=== PATIENT | female | born 1935 | race Caucasian/White ===

== ENCOUNTER 2019-04-06 10:31 | Outpatient (CLI) | payer MEDICARE, MEDICAID, SELFPAY ==
--- NOTE | 2019-04-06 | US_ITS ---
WS: [id number] DUPLEX CAROTID ULTRASOUND HISTORY: SYNCOPE COMPARISON: 06/05/2018 Peak systolic measurements are as follows (cm/sec): Right CCA: 61 Left CCA: 99 Right PICA: 159 Left PICA: 28 Right DOMINIQUE: 115 Left DOMINIQUE: 193 Right DICA: 146 Left DICA: 142 Right ECA: 280 Left ECA: 280 Vertebral arteries are antegrade. Right ICA/CCA: 2.6 Left ICA/CCA: 2.0 Mild scattered atherosclerosis throughout the carotid arteries. Most significant at the bifurcations. Turbulence and increased filling of the spectral window of the ICA waveform. Mild progression of dis ease since the prior study. US/ROR carotid duplex BI IMPRESSION: 1. Mild progression of ICA stenosis since 06/05/2018. 2. Bilateral ICA stenosis 50%.
== END 2019-04-06 10:32 | disposition home or self-care (01) ==
LOC: RADOUTREAD 11:31
PROVIDERS: Family Provider Family Medicine; Visit Provider Family Medicine
DX: Z76.89 Persons encountering health services in other specified circumstances (principal)

== ENCOUNTER 2019-04-20 12:55 | Outpatient (CLI) | payer MEDICARE, MEDICAID, SELFPAY ==
--- NOTE | 2019-04-20 13:03 | USCV_ITS ---
Galina Saba Age: 84 Gender: F : 1935 Exam Date: 04/20/2019 13:06 Ordering Phys: Magdiel Amador MD Technologist: Doe Donovan [place] [facility] [place]: SYNCOPE BP: 120 / 65 HR: 78 Rhythm: Sinus Technical Quality: Fair MEASUREMENTS (Male / Female) Normal Values 2D ECHO LV Diastolic Diameter PLAX 4.8 cm 4.2 - 5.9 / 3.9 - 5.3 cm LV Systolic Diameter PLAX 2.6 cm IVS Diastolic Thickness 1.2 cm 0.6 - 1.0 / 0.6 - 0.9 cm IVS Systolic Thickness 1.3 cm LVPW Diastolic Thickness 1.1 cm 0.6 - 1.0 / 0.6 - 0.9 cm LVPW Systolic Thickness 1.2 cm LVOT Diameter 2.0 cm LV Ejection Fraction 2D Teich 76.0 % LV Ejection Fraction MOD 2C 73.1 % LV Ejection Fraction 2C AL 72.7 % LA Diameter 4.2 cm LA Width 4.2 cm LA Height 5.3 cm RA Width 2.8 cm RA Height 3.5 cm Aorta at Sinotubular Diameter 2.8 cm DOPPLER AV Peak Velocity 178.0 cm/s LVOT Peak Velocity 134.0 cm/s AV Area Cont Eq vti 2.5 cm squared AV Area Cont Eq pk 2.3 cm squared MV Area PHT 5.0 cm squared Mitral E to A Ratio 0.8 MV E' Velocity 5.0 cm/s Mitral E to MV E' Ratio 19.2 Mitral E to LV E' Lateral Ratio 25.9 Mitral E to LV E' Septal Ratio 15.3 FINDINGS Left Ventricle Normal left ventricular cavity size. Mild left ventricular hypertrophy. Normal left ventricular systolic function. No regional wall motion abnormalities. Grade I/IV diastolic dysfunction (abnormal relaxation filling pattern), normal to mildly elevated filling pressures. Left ventricular ejection fraction is estimated at 65%. Right Ventricle Normal right ventricular size and systolic function. Right Atrium The right atrium is normal in size. Left Atrium Moderately increased left atrial size. Mitral Valve Structurally normal mitral valve. Mild mitral annular calcification. Mild mitral valve regurgitation. Aortic Valve Structurally normal trileaflet aortic valve. Mild aortic valve calcification. Aortic valve sclerosis without stenosis or regurgitation. Tricuspid Valve Structurally normal tricuspid valve. Trace tricuspid valve regurgitation. Pulmonic Valve Pulmonic valve not well visualized. Pericardium Normal pericardium without effusion. Aorta Normal ascending aorta dimension. CONCLUSIONS Normal left ventricular cavity size. Mild left ventricular hypertrophy. Normal left ventricular systolic function. No regional wall motion abnormalities. Grade I/IV diastolic dysfunction (abnormal relaxation filling pattern), normal to mildly elevated filling pressures. Left ventricular ejection fraction is estimated at 65%. Moderately increased left atrial size. Structurally normal mitral valve. Mild mitral annular calcification. Mild mitral valve regurgitation. Structurally normal trileaflet aortic valve. Mild aortic valve calcification. Aortic valve sclerosis without stenosis or regurgitation. No change from 04/06/2018 Dr. Bill Heard MD (Electronically Signed) Final Date: 20 April 2019 17:52 S
== END 2019-04-20 12:56 | disposition home or self-care (01) ==
LOC: US 12:57
PROVIDERS: Family Provider Family Medicine; PCP Family Medicine; Visit Provider Family Medicine
DX: I34.0 Nonrheumatic mitral (valve) insufficiency (principal); I70.0 Atherosclerosis of aorta; R55 Syncope and collapse; I51.7 Cardiomegaly
CPT/HCPCS: 93306

== ENCOUNTER 2019-05-31 10:20 | Inpatient (IN) | payer MEDICARE, MEDICAID, SELFPAY ==
[2019-05-31] VITALS (36 sets, daily range): BP systolic 116–176; BP diastolic 29–94; PULSE 32–47; RESP 8–414; TEMP 36.7–37; O2SAT 93–100; BMI 22.3
--- NOTE | 2019-05-31 10:44 | ECG_ITS ---
Measurements Intervals [place] Rate: 34 P: IL: 0 QRS: -51 QRSD: 130 T: 53 QT: 567 QTc: 429 Complete heart block third degree PROLONGED QT INTERVAL Compared to ECG 03/30/2018 21:33:48 There is third degree complete heart block Prolonged QT interval now present Sinus rhythm no longer present Incomplete right bundle-branch block no longer present Myocardial infarct finding no longer present Electronically Signed On 05-31-2019 18:35:14 CDT by Carrie Henderson M.D. [id number]
--- NOTE | 2019-05-31 10:45 | ED_ITS ---
HPI - Chest Pain General: Chief Complaint: Chest Pain Stated Complaint: bradycardia Time Seen by Provider: 05/31/19 10:27 History of Present Illness: HPI narrative: 84-year-old female admitted to the ER from dialysis clinic. She is in end-stage renal disease which she arrived both voiced that she has not felt well for the last several days and her heart rate has been low. She has noticed a little bit of orthopnea. She denies any chest pain. No cough no fever sweats or chills she has chronic bowel issues with that has not changed has no other specific complaints MD complaint: other (General malaise) Pertinent past history: other (End-stage renal disease) Onset (ago): day(s) (2-3) Timing of current episode: constant Prior episodes: No Onset: associated with drug use Relieving factors: rest Exacerbating factors: exertion Associated symptoms: Deny abdominal pain, dyspnea, fever(s), nausea or vomiting Treatment prior to arrival: none Review of Systems Const: Denies: fever, chills, body aches, change in appetite, fatigue or malaise ENMT: Denies: throat pain, ear pain, nasal discharge or nasal congestion Card: Reports: shortness of breath on exertion; Denies: chest pain, edema or shortness of breath when lying down Resp: Denies: shortness of breath, productive cough or non-productive cough GI: Denies: abdominal pain, nausea, vomiting, vomiting blood, coffee grounds in vomit, diarrhea, constipation, bloating, blood in stool or black tarry stool : Denies: flank pain, difficulty urinating, painful urination, urinary frequency or urinary urgency Skin/Breast: Denies: rash or itching PFSH ED PFSH: Medical History Anemia Carotid stenosis COPD (chronic obstructive pulmonary disease) 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 Diabetes Diastolic congestive heart failure End stage renal disease Essential hypertension GERD (gastroesophageal reflux disease) Interstitial lung disease Third degree heart block Tobacco abuse, in remission Surgical History Hemodialysis access site with arteriovenous graft History of tubal ligation Family History Other CAD (coronary artery disease) Social History Smoking and tobacco status: former smoker Alcohol intake: never Substance/Drug Use: never Physical Exam Const: COMMON NORMALS: no apparent distress GENERAL APPEARANCE: cooperative and comfortable ORIENTATION/CONSCIOUSNESS: Yes awake, Yes oriented to person, Yes oriented to place and Yes oriented to time HENMT: COMMON NORMALS: normocephalic, head/scalp atraumatic, hearing grossly normal bilaterally, external ears normal, EAC's normal, TM's normal bilaterally, nasal mucous membranes and turbinates normal, moist oral mucous membranes and oropharynx normal HEAD & SCALP: normocephalic and atraumatic NOSE: nasal mucous membranes and turbinates normal EXTERNAL EAR: Yes external ears normal EXTERNAL AUDITORY CANAL: EAC's normal TYMPANIC MEMBRANE: TM's normal bilat erally Eye: COMMON NORMALS: PERRL, EOMs intact bilaterally, conjunctivae normal and no scleral icterus CONJUNCTIVA: Yes conjunctivae normal PUPIL: Yes PERRL Neck/C-Spine: COMMON NORMALS: full ROM, no lymphadenopathy, supple and no JVD Lymph: LYMPHATIC: no lymphadenopathy noted and no lymphedema noted Resp: COMMON NORMALS: normal respiratory effort, no retractions, no use of accessory muscles and clear to auscultation bilaterally AUSCULTATION: clear to auscultation bilaterally Cardio: COMMON NORMALS: no JVD, regular rhythm and no murmurs RATE: bradycardic RHYTHM: regular rhythm GI: COMMON NORMALS: soft to palpation and no hepatosplenomegaly AUSCULTATION: Yes normoactive bowel sounds PALPATION: Yes soft, No tender, No guarding and Yes no hepatosplenomegaly Extremity: COMMON NORMALS: normal to inspection, normal capillary refill, no clubbing, cyanosis or edema, no calf tenderness and no pedal edema Neuro: SENSORIUM/ORIENTATION: Yes oriented to person, Yes oriented to place and Yes oriented to time Skin: COMMON NORMALS: no rashes or lesions noted GENERAL SKIN EXAM: no rashes or lesions noted Course Vital Signs: Vital signs: Vital Signs Temperature 98.2 F 06/02/19 04:00 Pulse Rate 68 06/02/19 04:00 Respiratory Rate 20 H 06/02/19 04:00 Blood Pressure 168/53 06/02/19 04:00 Pulse Oximetry 94 06/02/19 04:00 MDM - Chest Pain MDM Narrative: Medical decision making narrative: Patient third-degree heart block will admit to hospitalist consult cardiology. Lab Data: Labs: Lab Results 05/31/19 05/31/19 05/31/19 Range/Units 10:53 10:53 10:53 WBC 8.7 (4.0-10.0) 10^3/ uL RBC 3.42 L (4.1-5.3) 10^6/u L Hgb 10.8 L (11.5-15.3) g/dL Hct 34.5 L (37.0-47.0) % MCV 100.9 H (81-99) fL MCH 31.6 (28.0-34.0) pg MCHC 31.3 (30.0-36.0) g/dL RDW 13.0 (12.1-15.1) % Plt Count 256 (130-400) 10^3/c mm MPV 10.4 (7.4-10.4) fL Neut % (Auto) 75.6 % Lymph % (Auto) 16.3 % [place] % (Auto) 6.4 % Eos % (Auto) 1.0 % Baso % (Auto) 0.5 % Neut # (Auto) 6.6 (1.8-7.7) 10^3/u L Lymph # (Auto) 1.4 (0.8-4.8) 10^3/u L [place] # (Auto) 0.6 (0.2-0.9) 10^3/u L Eos # (Auto) 0.1 (0.0-0.8) 10^3/u L Baso # (Auto) 0.0 (0.0-0.1) 10^3/u L Nucleated RBC % (a uto) 0 % Nucleated RBCs # 0.0 /100WBC Sodium 138 (136-145) mmol/L Potassium 5.3 H (3.5-5.1) mmol/L Chloride 94 L (98-107) mmol/L Carbon Dioxide 27 (22-29) mmol/L Anion Gap 22.3 H (5-19) BUN 59 H (8-23) mg/dL Creatinine 7.2 H* (0.5-0.9) mg/dL Glucose 165 H (65-115) mg/dL Calculated Osmolal ity 288 (285-295) mOsm/k g Calcium 9.2 (8.5-10.5) mg/dL Magnesium (1.7-2.3) mg/dL Total Bilirubin 0.2 (0.15-1.2) mg/dL AST 22 (0-32) U/L ALT 28 (0-33) U/L Alkaline Phosphata se 69 (35-105) IU/L Troponin T Baselin e 47 H (0-10) ng/mL Total Protein 7.1 (6.6-8.7) g/dL Albumin 4.1 (3.5-5.2) g/dL Globulin 3.0 (1.3-4.6) g/dL TSH 3.22 (0.27-4.20) uIU/ mL Free T4 1.15 (0.82-1.77) ng/d L Hep Bs Antigen (Nonreactive) Hep Bs Antibody (0-8.5) Hepatitis C Antibo dy (Nonreactive) 05/31/19 05/31/19 05/31/19 Range/Units 10:53 10:53 10:53 WBC (4.0-10.0) 10^3/ uL RBC (4.1-5.3) 10^6/u L Hgb (11.5-15.3) g/dL Hct (37.0-47.0) % MCV (81-99) fL MCH (28.0-34.0) pg MCHC (30.0-36.0) g/dL RDW (12.1-15.1) % Plt Count (130-400) 10^3/c mm MPV (7.4-10.4) fL Neut % (Auto) % Lymph % (Auto) % [place] % (Auto) % Eos % (Auto) % Baso % (Auto) % Neut # (Auto) (1.8-7.7) 10^3/u L Lymph # (Auto) (0.8-4.8) 10^3/u L [place] # (Auto) (0.2-0.9) 10^3/u L Eos # (Auto) (0.0-0.8) 10^3/u L Baso # (Auto) (0.0-0.1) 10^3/u L Nucleated RBC % (a uto) % Nucleated RBCs # /100WBC Sodium (136-145) mmol/L Potassium (3.5-5.1) mmol/L Chloride (98-107) mmol/L Carbon Dioxide (22-29) mmol/L Anion Gap (5-19) BUN (8-23) mg/dL Creatinine (0.5-0.9) mg/dL Glucose (65-115) mg/dL Calculated Osmolal ity (285-295) mOsm/k g Calcium (8.5-10.5) mg/dL Magnesium 2.4 H (1.7-2.3) mg/dL Total Bilirubin (0.15-1.2) mg/dL AST (0-32) U/L ALT (0-33) U/L Alkaline Phosphata se (35-105) IU/L Troponin T Baselin e (0-10) ng/mL Total Protein (6.6-8.7) g/dL Albumin (3.5-5.2) g/dL Globulin (1.3-4.6) g/dL TSH (0.27-4.20) uIU/ mL Free T4 (0.82-1.77) ng/d L Hep Bs Antigen Non-reactive (Nonreactive) Hep Bs Antibody 7.2 (0-8.5) Hepatitis C Antibo dy (Nonreactive) 05/31/19 Range/Units 10:53 WBC (4.0-10.0) 10^3/ uL RBC (4.1-5.3) 10^6/u L Hgb (11.5-15.3) g/dL Hct (37.0-47.0) % MCV (81-99) fL MCH (28.0-34.0) pg MCHC (30.0-36.0) g/dL RDW (12.1-15.1) % Plt Count (130-400) 10^3/c mm MPV (7.4-10.4) fL Neut % (Auto) % Lymph % (Auto) % [place] % (Auto) % Eos % (Auto) % Baso % (Auto) % Neut # (Auto) (1.8-7.7) 10^3/u L Lymph # (Auto) (0.8-4.8) 10^3/u L [place] # (Auto) (0.2-0.9) 10^3/u L Eos # (Auto) (0.0-0.8) 10^3/u L Baso # (Auto) (0.0-0.1) 10^3/u L Nucleated RBC % (a uto) % Nucleated RBCs # /100WBC Sodium (136-145) mmol/L Potassium (3.5-5.1) mmol/L Chloride (98-107) mmol/L Carbon Dioxide (22-29) mmol/L Anion Gap (5-19) BUN (8-23) mg/dL Creatinine (0.5-0.9) mg/dL Glucose (65-115) mg/dL Calculated Osmolal ity (285-295) mOsm/k g Calcium (8.5-10.5) mg/dL Magnesium (1.7-2.3) mg/dL Total Bilirubin (0.15-1.2) mg/dL AST (0-32) U/L ALT (0-33) U/L Alkaline Phosphata se (35-105) IU/L Troponin T Baselin e (0-10) ng/mL Total Protein (6.6-8.7) g/dL Albumin (3.5-5.2) g/dL Globulin (1.3-4.6) g/dL TSH (0.27-4.20) uIU/ mL Free T4 (0.82-1.77) ng/d L Hep Bs Antigen (Nonreactive) Hep Bs Antibody (0-8.5) Hepatitis C Antibo dy Non-reactive (Nonreactive) Discharge Plan Discharge Admit Provider: Nasir Zimmer Clinical Impression: Third degree heart block, End stage renal disease, Hemodialysis access site with arteriovenous graft, Essential hypertension, Diabetes, Anemia Condition: Stable Interventions: ED Discharge Assessment Last Done: 05/31/19 13:06 Discharge Date/Time: 05/31/19 13:08 Coding Level of Care Code ED Barrel And Receiver Aligner for Elizabeth Fwd Exam Comprehensive
[2019-05-31 10:59] LABS: Basophils % 0.5 %; Eosinophils # 0.1 10^3/uL (0.0-0.8); Hematocrit 34.5 % (37.0-47.0); Hemoglobin 10.8 g/dL (11.5-15.3); Lymphocytes # 1.4 10^3/uL (0.8-4.8); Lymphocytes % 16.3 %; Mean Corpuscular HGB Conc 31.3 g/dL (30.0-36.0); Mean Corpuscular Hemoglobin 31.6 pg (28.0-34.0); Mean Corpuscular Volume 100.9 fL (81-99); Mean Platelet Volume 10.4 fL (7.4-10.4); Monocytes # 0.6 10^3/uL (0.2-0.9); Monocytes % 6.4 %; Neutrophils # 6.6 10^3/uL (1.8-7.7); Neutrophils % 75.6 %; Nucleated Red Blood Cells % 0 %; Platelet Count 256 10^3/cmm (130-400); Red Blood Count 3.42 10^6/uL (4.1-5.3); White Blood Count 8.7 10^3/uL (4.0-10.0)
[2019-05-31 11:17] LABS: Troponin(5th) Baseline 47 ng/mL (0-10)
[2019-05-31 11:24] LABS: Alanine Aminotransferase 28 U/L (0-33); Albumin Level 4.1 g/dL (3.5-5.2); Alkaline Phosphatase 69 IU/L (35-105); Anion Gap 22.3 (5-19); Aspartate Amino Transferase 22 U/L (0-32); Blood Urea Nitrogen 59 mg/dL (8-23); Calcium 9.2 mg/dL (8.5-10.5); Carbon Dioxide 27 mmol/L (22-29); Chloride 94 mmol/L (98-107); Free T4 Free Thyroxine 1.15 ng/dL (0.82-1.77); Glucose 165 mg/dL (65-115); Osmolality Calculated 288 mOsm/kg (285-295); Potassium 5.3 mmol/L (3.5-5.1); Sodium 138 mmol/L (136-145); Thyroid Stimulating Hormone 3.22 uIU/mL (0.27-4.20); Total Bilirubin 0.2 mg/dL (0.15-1.2); Total Protein 7.1 g/dL (6.6-8.7)
--- NOTE | 2019-05-31 11:33 | XR_ITS ---
WS: [id number] CHEST XRAY TECHNIQUE: Portable chest. CLINICAL INFORMATION: dyspnea/cough COMPARISON: March 30, 2018 FINDINGS: Heart: Cardiomegaly. Aortic calcification. Lungs: Moderate chronic emphysematous changes. No acute pulmonary infiltrates. Bones: Osteopenia. Right rotator cuff anchor. Left axillary clips. XR/XR chest 1V portable [id number] IMPRESSION: 1. Cardiomegaly. 2. Chronic emphysematous changes. No acute pulmonary infiltrates. 3. No acute chest findings.
--- NOTE | 2019-05-31 11:47 | P.HP_ITS ---
Providers/Chief Complaint Primary Care Provider: Magdiel Amador MD Chief Complaint: bradycardia History of Present Illness Galina Saba is a 84 year old female that presented to the emergency department with complaints of weakness, dizziness, and tiredness. She reports symptoms have been worse in the last several days, but present for months. She reports she recently had a medicine added to her regimen by her health care law specialist about 1 month ago, a beta-bill. She denies any chest pain. She reports she is only short of breath with exertion. No fever, cough. Of note, she did miss her dialysis this morning, as she was referred to the emergency department for low heart rate. Review of Systems General: Reports: 10 or more systems reviewed and unremarkable except in HPI and below Const: Denies: fever, chills or body aches Eyes: Denies: blurry vision ENMT: Denies: throat pain Card: Reports: lightheadedness, pre-syncope and shortness of breath on exertion; Denies: chest pain Resp: Denies: productive cough GI: Denies: abdominal pain : Denies: flank pain Musc: Denies: back pain Skin/Breast: Denies: rash Neuro: Reports: dizziness; Denies: headache Psych: Denies: anxiety or depression Endo: Denies: excessive urination Munir/Lymph: Denies: easy bruising All/Imm: Denies: hives Medications/Allergies Home Medications Medication Instructions Recorded Confirmed Last Taken Type flaxseed oil 1,000 mg PO DAILY 05/31/19 05/31/19 05/30/19 History metoprolol succinate 12.5 mg PO DAILY 05/31/19 05/31/19 05/30/19 History Allergies Allergy/AdvReac Type Severity Reaction Status Date / Time lisinopril Allergy Unknown Unknown Verified 04/15/19 11:00 morphine AdvReac Intermediate ADR-Nausea Verified 04/15/19 11:00 PFSH Acute PFSH: Medical History (Updated 05/31/19 @ 13:55 by Nasir Zimmer MD) Anemia Carotid stenosis COPD (chronic obstructive pulmonary disease) 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 Diabetes Diastolic congestive heart failure End stage renal disease Essential hypertension GERD (gastroesophageal reflux disease) Interstitial lung disease Third degree heart block Tobacco abuse, in remission Surgical History (Updated 05/31/19 @ 13:51 by Nasir Zimmer MD) Hemodialysis access site with arteriovenous graft History of tubal ligation Family History (Updated 05/31/19 @ 13:52 by Nasir Zimmer MD) Other CAD (coronary artery disease) Social History (Updated 05/31/19 @ 13:52 by Nasir Zimmer MD) Smoking and tobacco status: former smoker Alcohol intake: never Substance/Drug Use: never Vitals/I&O/Wt Last Vital Signs Temp 98.1 F 05/31/19 10:29 Pulse 35 L 05/31/19 10:29 Resp 16 05/31/19 10:29 BP 170/43 05/31/19 10:29 Pulse Ox 100 05/31/19 10:29 Weight last 48 hrs Weight 53.524 kg Physical Exam Narrative: EXAM NARRATIVE: General exam demonstrates a white female, in no apparent distress, conversive HEENT: Pupils equally round. Oropharynx clear. Neck is supple no lymphadenopathy or thyromegaly Cardiovascular bradycardic, 2/6 systolic murmur Lungs clear no wheezing or crackles Abdomen is soft, positive bowel sounds, no obvious organomegaly was deferred Extremities no cyanosis clubbing or edema, cap refill brisk Skin no rash Neuro no focal deficits Data : 05/31/19 10:53 05/31/19 10:53 Other data: EKG demonstrates left axis deviation, complete heart block Magnesium 2.4 Troponin 47 TSH normal Chest x-ray demonstrates cardiomegaly, COPD, no infiltrate Past echocardiogram, March demonstrated EF of 65% A&P Assessment and plan (1) Third degree heart block: At this point she is not hypotensive, and not having any current symptoms. Obviously, her beta-bill will be held. Cardiology will be consulted If heart block fails to resolve she may need permanent pacemaker placement. Cardiology will intervene sooner with temporary pacer should she become symptomatic Pacer pads currently in place in the ICU Status: Acute (2) Hyperkalemia: Secondary to renal failure. I do not believe her hyperkalemia is contributing to her arrhythmia Status: Acute (3) Anemia: Secondary to chronic renal failure Status: Acute Additional A&P Information End-stage renal disease, on hemodialysis. Nephrology consulted History of hypertension History of carotid artery disease GERD COPD with no evidence of exacerbation Type 2 diabetes Full code Heparin for DVT prophylaxis Attestations Medical Necessity Statement*: Will need greater than 2 midnight stay secondary to third-degree heart block Time Spent in Patient Care: Greater than 35 minutes Coding Level of Care Code Acute Coffee Attendant for Mireilleg Fwd Diagnoses Third degree heart block I44.2 Hyperkalemia E87.5 Anemia D64.9
--- NOTE | 2019-05-31 12:07 | PM.CONSULT ---
Providers/Reason For Consult Consulting Physican/Specialty*: margie karimi md telenephrology Reason for Consult*: ESRD care in a bradycardic pt Requesting Physcian: Dr. Page Lyon Primary Care Provider: Magdiel Amador MD History of Present Illness History of Present Illness Galina Saba is a 84 year old female ESRD pt w/ recent inc in beta bill. pt went to dialysis and found to be weak, lethargic and bradycardic. pt was transferred to [facility] ER. Renal is called to provide dialysis care. pt states she has been feeling weak, lethargic, and down for few months. h/o htn, dm, esrd Review of Systems General: Reports: 10 or more systems reviewed and unremarkable except in HPI and below Narrative: weak, poor appetite. no fevers, chills, no joe, no cough, no diarrhea, no urinary symptoms, no edmea Meds/Allergies Home Medications and Allergies Home Medications Medication Instructions Recorded Confirmed Type acetaminophen 325 mg capsule 325 mg PO QID PRN 04/15/19 04/15/19 History alprazolam 0.25 mg tablet 0.25 mg PO DAILY 04/15/19 04/15/19 History amlodipine 10 mg tablet 10 mg PO DAILY 04/15/19 04/15/19 History furosemide 80 mg tablet 80 mg PO DAILY 04/15/19 04/15/19 History linagliptin 5 mg tablet 5 mg PO DAILY 04/15/19 04/15/19 History omeprazole 40 mg capsule,delayed 40 mg PO DAILY 04/15/19 04/15/19 History release flaxseed oil 1,000 mg PO DAILY 05/31/19 05/31/19 History metoprolol succinate 12.5 mg PO DAILY 05/31/19 05/31/19 History Allergies Allergy/AdvReac Type Severity Reaction Status Date / Time lisinopril Allergy Unknown Unknown Verified 04/15/19 11:00 morphine AdvReac Intermediate ADR-Nausea Verified 04/15/19 11:00 PFSH Acute PFSH: Social History Smoking and tobacco status: former smoker Vitals/I&O/Wt Last Vital Signs Temp 98.1 F 05/31/19 10:29 Pulse 35 L 05/31/19 10:29 Resp 16 05/31/19 10:29 BP 170/43 05/31/19 10:29 Pulse Ox 100 04/06/20 10:29 Weight last 48 hrs Weight 53.524 kg Physical Exam Narrative: EXAM NARRATIVE: comfortable in bed, NARD vs noted- bradycardic heent- nc.at, eomi, anicteric neck supple lungs clear heart +RADHA, bradycardic, heart block abd soft ext no edema LUE AVF w/ thrill and bruit neuro - a,a, o x 3 A&P Additional A&P Information 1. bradycardia- stop beta-bill. consider glucagon. cards eval HD once in ICU -check tsh 2. ESRD- Hd MWF and bradycardia- HD now- for 3.5 hrs, 2 k bath, remove 1- 2 l 3. anemia- monitor hgb 4. bone- mineral- metabolism- monitor phos, pth, and ca Consult Attestations Medical Necessity Statement: ESRD, symptomatic bradycardia Time Spent in Patient Care: Greater than 35 minutes Coding Level of Care Code Acute Elevators Inspector for Elizabeth Lewis
[2019-05-31 12:11] LABS: Magnesium 2.4 mg/dL (1.7-2.3)
--- NOTE | 2019-05-31 12:29 | PC.NURSE ---
This RN assisted patient with video chatting tele nephrology at this time.
--- NOTE | 2019-05-31 12:44 | ECG_ITS ---
Measurements Intervals [place] Rate: 47 P: MA: 0 QRS: -52 QRSD: 123 T: 3 QT: 502 QTc: 445 SINUS BRADYCARDIA WITH 2ND DEGREE AV BLOCK, MOBITZ TYPE II RIGHT BUNDLE BRANCH BLOCK [120+ ms QRS DURATION, UPRIGHT V1, 40+ ms S IN I/aVL/V4/V5/V6] LEFT ANTERIOR FASCICULAR BLOCK [QRS AXIS <= -45, QR IN I, RS IN II] MODERATE VOLTAGE CRITERIA FOR LVH, CONSIDER NORMAL VARIANT [MEETS CRITERIA IN ONE OF: R(aVL), S(V1), R(V5), R(V5/V6)+S(V1)] Compared to ECG 03/30/2018 21:33:48 Right bundle-branch block now present Left anterior fascicular block now present Sinus rhythm no longer present Incomplete right bundle-branch block no longer present Myocardial infarct finding no longer present Electronically Signed On 05-31-2019 18:36:54 CDT by Carrie Henderson M.D. [id number]
[2019-05-31 13:11] LABS: Troponin 5 2HR 47.09 ng/mL (0-10); Troponin 5 2HR Delta 0.09 ABS# (0-10)
[2019-05-31 13:18] LABS: Hepatitis C Virus Antibody Non-Reactive (Nonreactive)
--- NOTE | 2019-05-31 13:28 | PC.NURSE ---
Pt admitted to ICU 7. Pt alert and oriented, denies any discomfort at this time. Complete heart block noted on monitor. AV graft noted left arm.
[2019-05-31 13:31] LABS: Hepatitis B Surface Antigen. Non-Reactive (Nonreactive)
[2019-05-31 13:32] LABS: Hepatitis B Surface AB. 7.2 (0-8.5)
--- NOTE | 2019-05-31 13:45 | P.CONIM_ITS ---
Providers/Reason For Consult Consulting Physican/Specialty*: Cardiovascular medicine Reason for Consult*: Third-degree heart block Attending Physician: Nasir Zimmer MD Primary Care Provider: Magdiel Amador MD History of Present Illness History of Present Illness Galina Saba is a 84 year old female who was admitted to the hospital with third-degree heart block. She has not been feeling well for several months. She describes fatigue, one episode of syncope and feeling tired all the time. She has had dizzy spells. 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 Holter monitor was done on April 20 which showed first-degree AV block but no high degree AV block. Her blood pressure is stable to high. She is hemodynamically stable while being admitted to the ICU. She has no prior history of heart disease. She does have end-stage renal disease. She was sent here today from the dialysis clinic when they noticed her heart rate was 35. Review of Systems General: Reports: 10 or more systems reviewed and unremarkable except in HPI and below Meds/Allergies Home Medications and Allergies Home Medications Medication Instructions Recorded Confirmed Type acetaminophen 325 mg capsule 325 mg PO QID PRN 04/15/19 05/31/19 History alprazolam 0.25 mg tablet 0.25 mg PO DAILY 04/15/19 05/31/19 History amlodipine 10 mg tablet 10 mg PO DAILY 04/15/19 05/31/19 History furosemide 80 mg tablet 40 mg PO BID 04/15/19 05/31/19 History linagliptin 5 mg tablet 5 mg PO DAILY 04/15/19 05/31/19 History omeprazole 40 mg capsule,delayed 40 mg PO DAILY 04/15/19 05/31/19 History release flaxseed oil 1,000 mg PO DAILY 05/31/19 05/31/19 History metoprolol succinate 12.5 mg PO DAILY 05/31/19 05/31/19 History Allergies Allergy/AdvReac Type Severity Reaction Status Date / Time lisinopril Allergy Unknown Unknown Verified 04/15/19 11:00 morphine AdvReac Intermediate ADR-Nausea Verified 04/15/19 11:00 PFSH Acute PFSH: Social History Smoking and tobacco status: former smoker Vitals/I&O/Wt Last Vital Signs Temp 98.1 F 05/31/19 10:29 Pulse 33 L 05/31/19 13:06 Resp 14 05/31/19 13:06 BP 144/46 05/31/19 13:06 Pulse Ox 97 05/31/19 13:06 Weight last 48 hrs Weight 118 lb Physical Exam Narrative: EXAM NARRATIVE: GENERAL: General she is awake alert and looks well HEENT: Exam within normal limits. NECK: Supple without jugular vein distention. The carotid upstroke is normal without bruits. BACK: Exam normal. LUNGS: Clear. HEART: Regular rate and rhythm. Bradycardic ABDOMEN: Benign without organomegaly or tenderness. EXTREMITIES: No edema. NEUROLOGIC: Exam normal. SKIN: Unremarkable. Data Other Data: Other data: Troponin troponin 47. Potassium 5.3. Echo done on April 20 reveals ejection fraction of 65% with grade 1 diastolic dysfunction. A&P Assessment and plan (1) Third degree heart block: Status: Acute (2) End stage renal disease: Status: Acute (3) Hemodialysis access site with arteriovenous graft: Status: Acute (4) Essential hypertension: Status: Acute (5) Diabetes: Status: Acute Additional A&P Information Hold the beta-bill. Pacemaker if necessary. 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
--- NOTE | 2019-05-31 14:00 | PC.NURSE ---
Hemodialysis in progress.
[2019-05-31 17:12] LABS: Glucose Point of Care 106 mg/dL (70-110)
[2019-05-31 17:24] LABS: Troponin 5 6HR 43.22 ng/mL (0-10)
[2019-05-31 17:31] LABS: Troponin 5 6HR Delta -3.78 ng/L (0-12)
[2019-05-31] MEDS: heparin 5,000 unit/mL INJ 1 mL 5000 UNIT SUBCUT (17:50)
--- NOTE | 2019-05-31 20:20 | PC.NURSE ---
Patient bedtime blood sugar was 157. Patient refused insulin. Patient stated, I don't need any insulin. My blood sugar will go down by morning. Patient denies any needs or discomforts at this time. No distress observed.
[2019-05-31] MEDS: ALPRAZolam 0.25 mg Tablet PO (21:46)
[2019-06-01] VITALS (15 sets, daily range): BP systolic 127–165; BP diastolic 34–99; PULSE 35–77; RESP 14–19; TEMP 36.8; O2SAT 92–96
--- NOTE | 2019-06-01 | SCC_ITS ---
Procedure Done: Dual-chamber pacemaker implantation 88.6 seconds of fluoroscopic guidance, for a cumulative dose of 15.91 mGy, was provided to Dr. Orellana by the radiology department. C-arm images of the chest were saved for the patient's permanent record. [facility]
--- NOTE | 2019-06-01 01:41 | PC.NURSE ---
Patient lying on her left side. Heart rate steady at 35 bpm. Patient continues to deny any dizziness, lightheadedness, or other discomforts. No distress observed.
--- NOTE | 2019-06-01 03:35 | PC.NURSE ---
Patient HR at 35 bpm. Patient continues to deny any discomforts. No distress observed.
[2019-06-01 04:56] LABS: Basophils # 0.1 10^3/uL (0.0-0.1); Basophils % 0.6 %; Eosinophils # 0.1 10^3/uL (0.0-0.8); Eosinophils % 0.9 %; Hematocrit 35.1 % (37.0-47.0); Hemoglobin 10.6 g/dL (11.5-15.3); Lymphocytes # 1.6 10^3/uL (0.8-4.8); Lymphocytes % 16.7 %; Mean Corpuscular HGB Conc 30.2 g/dL (30.0-36.0); Mean Corpuscular Hemoglobin 31.4 pg (28.0-34.0); Mean Corpuscular Volume 103.8 fL (81-99); Mean Platelet Volume 11.4 fL (7.4-10.4); Monocytes # 0.7 10^3/uL (0.2-0.9); Monocytes % 7.1 %; Neutrophils % 74.6 %; Nucleated Red Blood Cells % 0 %; Platelet Count 226 10^3/cmm (130-400); Red Blood Count 3.38 10^6/uL (4.1-5.3); Red Cell Distribution Width 12.8 % (12.1-15.1); White Blood Count 9.4 10^3/uL (4.0-10.0)
[2019-06-01 05:29] LABS: Alanine Aminotransferase 23 U/L (0-33); Albumin Level 3.9 g/dL (3.5-5.2); Alkaline Phosphatase 68 IU/L (35-105); Anion Gap 21.6 (5-19); Aspartate Amino Transferase 23 U/L (0-32); Blood Urea Nitrogen 25 mg/dL (8-23); Calcium 9.2 mg/dL (8.5-10.5); Carbon Dioxide 26 mmol/L (22-29); Chloride 93 mmol/L (98-107); Glucose 128 mg/dL (65-115); Magnesium 2.1 mg/dL (1.7-2.3); Osmolality Calculated 280 mOsm/kg (285-295); Phosphorus 4.4 mg/dL (2.5-4.5); Potassium 4.6 mmol/L (3.5-5.1); Sodium 136 mmol/L (136-145); Total Bilirubin 0.4 mg/dL (0.15-1.2); Total Protein 6.9 g/dL (6.6-8.7)
[2019-06-01 06:04] LABS: Slide Review Slide Review Perform
[2019-06-01 06:23] LABS: Calcium 9.2 mg/dL (8.5-10.5); Parathyroid Hormone 200.6 pg/mL (15-65)
[2019-06-01 07:12] LABS: Glucose Point of Care 125 mg/dL (70-110)
--- NOTE | 2019-06-01 07:29 | PM.PN ---
Subjective Subjective: Interval history: Galina has had an uneventful night. Blood pressure is normal this morning. She remains in complete heart block. No symptoms. Vitals/I&O/Wt Last Vital Signs Temp 98.6 F 05/31/19 17:00 Pulse 36 L 06/01/19 05:23 Resp 16 06/01/19 05:23 BP 148/44 06/01/19 05:23 Pulse Ox 92 06/01/19 05:23 05/31/19 06/01/19 06/01/19 22:59 06:59 14:59 Intake Total 370 / 370 240 / 610 Output Total 0 / 0 Balance 370 / 370 240 / 610 Weight last 48 hrs Weight 118 lb Physical Exam Narrative: EXAM NARRATIVE: GENERAL: In general she looks and feels well HEENT: Exam within normal limits. NECK: Supple without jugular vein distention. The carotid upstroke is normal without bruits. BACK: Exam normal. LUNGS: Clear. HEART: Regular rate and rhythm. ABDOMEN: Benign without organomegaly or tenderness. EXTREMITIES: No edema. NEUROLOGIC: Exam normal. SKIN: Unremarkable. Data : 06/01/19 04:29 06/01/19 04:29 A&P Assessment and plan (1) Anemia: Status: Acute (2) Diabetes: Status: Acute (3) Essential hypertension: Status: Acute (4) Hemodialysis access site with arteriovenous graft: Status: Acute (5) End stage renal disease: Status: Acute (6) Third degree heart block: Status: Acute Additional A&P Information She remains in third-degree heart block. She was on a very low dose beta-bill and I think it has had time to wear off. I think we should proceed with a pacemaker. I have contacted Dr. Orellana. She will be n.p.o. after breakfast. 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
--- NOTE | 2019-06-01 07:53 | P.PN_ITS ---
Subjective Subjective: Interval history: feels better- still bradycardic- awaiting PPM Medications: Reviewed: Yes Medication Review Details: Current Medications Acetaminophen (Tylenol) 650 mg PO Q6H PRN PRN Reason: Mild/Mod Pain Or Temp >/= 101 Alprazolam (Xanax) 0.25 mg PO BEDTIME [facility] Last Admin: 05/31/19 21:46 Dose: 0.25 mg Documented by: Dextrose (D50w) 25 ml IVP ONCE PRN; Protocol PRN Reason: hypoglycemia protocol Dextrose (D50w) 50 ml IVP PRN PRN; Protocol PRN Reason: hypoglycemia protocol Glucagon (Glucagen) 1 mg IM ONCE PRN; Protocol PRN Reason: Adult Acute Hypoglycemia Prot. Heparin Sodium (Beef Lung) (Heparin) 5,000 unit SUBCUT BID [facility] Last Admin: 05/31/19 17:50 Dose: 5,000 unit Documented by: Dextrose (D5w) 500 mls @ 100 mls/hr IV ONCE PRN; Protocol PRN Reason: Adult Acute Hypoglycemia Prot Insulin Aspart (Novolog) 0 unit SUBCUT TIDWM [facility]; Protocol Last Admin: 06/01/19 07:10 Dose: Not Given Documented by: Insulin Aspart (Novolog) 0 unit SUBCUT BEDTIME [facility]; Protocol Last Admin: 05/31/19 20:20 Dose: Not Given Documented by: Ondansetron HCl (Zofran) 4 mg IVP Q6H PRN PRN Reason: vomiting, or N/V if npo Pantoprazole Sodium (Protonix) 40 mg PO DAILY [facility] Vitals/I&O/Wt Last Vital Signs Temp 98.6 F 05/31/19 17:00 Pulse 36 L 06/01/19 05:23 Resp 16 06/01/19 05:23 BP 148/44 06/01/19 05:23 Pulse Ox 92 06/01/19 05:23 05/31/19 06/01/19 06/01/19 22:59 06:59 14:59 Intake Total 370 / 370 240 / 610 Output Total 0 / 0 Balance 370 / 370 240 / 610 Weight last 48 hrs Weight 53.524 kg Physical Exam Narrative: EXAM NARRATIVE: comfortable in bed, NARD vs noted- bradycardic heent- nc.at, eomi, anicteric neck supple lungs clear heart +RADHA, bradycardic, heart block abd soft ext no edema LUE AVF w/ thrill and bruit neuro - a,a, o x 3 Data : 06/01/19 04:29 06/01/19 04:29 A&P Additional A&P Information 1. bradycardia-awaiting PPM -normal tsh -appreciate Cards input 2. ESRD- Hd MWF -repeat HD in AM- for 3.5 hrs, 2 k bath, remove 1- 2 l 3. anemia- monitor hgb 4. bone- mineral- metabolism- monitor phos normal, pth controlled for ESRD, and ca Attestations Medical Necessity Statement*: ESRD, third degree heart block- await pacemaker Time Spent in Patient Care: 16 - 35 minutes Coding Level of Care Code Acute Nuclear Medicine Specialist for [facility]
[2019-06-01] MEDS: b-complex-vitamin c Tablet 1 EACH PO (08:18)
[2019-06-01] MEDS: pantoprazole DR 40 mg Tablet PO (08:18)
[2019-06-01] MEDS: chlorhexidine gluconate 4% Btl 118 mL 1 APPLIC TOPICAL (08:21)
[2019-06-01 08:28] LABS: INR 0.96 (0.8-1.2); Partial Thromboplastin Time 24.6 SECONDS (23.9-36.7)
--- NOTE | 2019-06-01 09:30 | PC.NURSE ---
Addendum entered by Kendra Chamberlain RN 06/01/19 14:39: 1st Betasept* bath given. Original Note: 1st Betadine bath given.
--- NOTE | 2019-06-01 09:51 | PM.PN ---
Subjective Subjective: Interval history: Galina reports she is feeling okay but concerned that her heart rate is still low. This of breath, chest discomfort with laying in bed. Telemetry still indicates third-degree heart block. Medications: Reviewed: Yes Vitals/I&O/Wt Last Vital Signs Temp 98.6 F 05/31/19 17:00 Pulse 35 L 06/01/19 08:41 Resp 14 06/01/19 08:00 BP 127/34 06/01/19 08:00 Pulse Ox 95 06/01/19 08:41 05/31/19 06/01/19 06/01/19 22:59 06:59 14:59 Intake Total 370 / 370 240 / 610 120 / 120 Output Total 0 / 0 Balance 370 / 370 240 / 610 120 / 120 Weight last 48 hrs Weight 53.524 kg Physical Exam Narrative: EXAM NARRATIVE: General exam no apparent distress Cardiovascular bradycardic, 2/6 systolic murmur Lungs clear Abdomen is soft, positive bowel sounds Extremities no cyanosis clubbing or edema Data : 06/01/19 04:29 06/01/19 04:29 A&P Assessment and plan (1) Third degree heart block: At this point she is not hypotensive, and not having any current symptoms. Beta-blockers been held. She remains in third-degree heart block. Likely pacemaker will be needed. Cardiology will be consulted Pacer pads currently in place in the ICU After pacemaker has been placed she can likely transition to cardiac stepdown unit N.p.o. for potential procedure today. Status: Acute (2) Hyperkalemia: Secondary to renal failure. I do not believe her hyperkalemia is contributing to her arrhythmia Improved following dialysis Status: Acute (3) Anemia: Secondary to chronic renal failure Stable Status: Acute Additional A&P Information End-stage renal disease, on hemodialysis. Nephrology consulted. 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
[2019-06-01 11:20] LABS: Glucose Point of Care 124 mg/dL (70-110)
--- NOTE | 2019-06-01 11:49 | P.CONIM_ITS ---
Providers/Reason For Consult Consulting Physican/Specialty*: Dr. Orellana, cardiothoracic surgery Reason for Consult*: Third-degree heart block Requesting Physcian: Dr. Heard Attending Physician: Nasir Zimmer MD Primary Care Provider: Magdiel Amador MD History of Present Illness History of Present Illness Galina Saba is an 84 year old female admitted yesterday after presenting with complaints of weakness, dizziness, and increasing fatigue. She states this is been occurring now for at least 2 3 months. She does have chronic renal failure and is on hemodialysis through a left upper extremity AV fistula. Blood presentation was found to have a heart rate of 30-35. She was found to be in third-degree AV block. Dr. Heard from cardiology was consulted and he is recommended a dual-chamber pacemaker implantation. Review of Systems Const: Denies: fever, chills, change in appetite, change in weight, fatigue or night sweats Eyes: Denies: change in vision or blurry vision ENMT: Denies: painful swallowing or hoarseness Card: Reports: lightheadedness, pre-syncope and shortness of breath on exertion; Denies: chest pain, palpitations or edema Resp: Reports: shortness of breath (With exertion); Denies: productive cough GI: Denies: abdominal pain, nausea, vomiting, difficulty swallowing or change in bowel habits : Denies: painful urination, urinary frequency, urinary urgency or urinary hesitancy Musc: Denies: extremity pain or extremity swelling Skin/Breast: Denies: rash Neuro: Denies: numbness in extremities, weakness in extremities or changes in sensation Psych: Denies: anxiety, depression or change in appetite Endo: Denies: excessive urination, excessive thirst or cold intolerance Munir/Lymph: Denies: easy bruising, easy bleeding, petechiae or enlarged lymph nodes Meds/Allergies Home Medications and Allergies Home Medications Medication Instructions Recorded Confirmed Type acetaminophen 325 mg capsule 325 mg PO QID PRN 04/15/19 05/31/19 History alprazolam 0.25 mg tablet 0.25 mg PO DAILY 04/15/19 05/31/19 History amlodipine 10 mg tablet 10 mg PO DAILY 04/15/19 05/31/19 History furosemide 80 mg tablet 40 mg PO BID 04/15/19 05/31/19 History linagliptin 5 mg tablet 5 mg PO DAILY 04/15/19 05/31/19 History omeprazole 40 mg capsule,delayed 40 mg PO DAILY 04/15/19 05/31/19 History release flaxseed oil 1,000 mg PO DAILY 05/31/19 05/31/19 History metoprolol succinate 12.5 mg PO DAILY 05/31/19 05/31/19 History Allergies Allergy/AdvReac Type Severity Reaction Status Date / Time lisinopril Allergy Unknown Unknown Verified 04/15/19 11:00 morphine AdvReac Intermediate ADR-Nausea Verified 04/15/19 11:00 Current Medications Current Medications Generic Name Dose Route Start Last Admin Trade Name Freq PRN Reason Stop Dose Admin Alprazolam 0.25 mg 05/31/19 21:45 05/31/19 21:46 Xanax PO 0.25 mg BEDTIME [facility] Administration Chlorhexidine Gluconate 1 applic 06/01/19 09:00 06/01/19 08:21 Betasept TOPICAL 1 dose DAILY [facility] Administration Heparin Sodium (Beef Lung) 5,000 unit 05/31/19 18:00 06/01/19 08:22 Heparin SUBCUT Not Given BID [facility] Insulin Aspart 0 unit 05/31/19 18:00 06/01/19 11:29 Novolog SUBCUT Not Given TIDWM [facility] Protocol Insulin Aspart 0 unit 05/31/19 21:00 05/31/19 20:20 Novolog SUBCUT Not Given BEDTIME [facility] Protocol Multivitamins 1 each 06/01/19 09:00 06/01/19 08:18 Allbee-C PO 1 each DAILY [facility] Administration Pantoprazole Sodium 40 mg 06/01/19 09:00 06/01/19 08:18 Protonix PO 40 mg DAILY [facility] Administration PFSH Acute PFSH: Medical History Anemia Carotid stenosis COPD (chronic obstructive pulmonary disease) 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 Diabetes Diastolic congestive heart failure End stage renal disease Essential hypertension GERD (gastroesophageal reflux disease) Interstitial lung disease Third degree heart block Tobacco abuse, in remission Surgical History Hemodialysis access site with arteriovenous graft History of tubal ligation Family History Other CAD (coronary artery disease) Social History Smoking and tobacco status: former smoker Alcohol intake: never Substance/Drug Use: never Vitals/I&O/Wt Last Vital Signs Temp 98.6 F 05/31/19 17:00 Pulse 36 L 06/01/19 10:00 Resp 18 06/01/19 10:00 BP 141/99 06/01/19 10:00 Pulse Ox 94 06/01/19 10:00 05/31/19 06/01/19 06/01/19 22:59 06:59 14:59 Intake Total 370 / 370 240 / 610 120 / 120 Output Total 0 / 0 100 / 100 Balance 370 / 370 240 / 610 Weight last 48 hrs Weight 118 lb Physical Exam Const: COMMON NORMALS: oriented x3 HENMT: COMMON NORMALS: normocephalic HEAD & SCALP: normocephalic Neck/C-Spine: COMMON NORMALS: negative for full ROM GENERAL: Yes normal visual inspection and Yes trachea midline Chest: COMMONS NORMALS: inspection of chest normal Resp: COMMON NORMALS: normal respiratory effort, no use of accessory muscles and clear to auscultation bilaterally EFFORT & INSPECTION: Yes symmetric chest movement AUSCULTATION: clear to auscultation bilaterally Cardio: COMMON NORMALS: negative for regular rate RATE: abnormal rate and bradycardic RHYTHM: abnormal rhythm HEART SOUNDS: murmur systolic Location: right sternal border Intensity: II/ Timing: mid Extremity: COMMON NORMALS: no clubbing, cyanosis or edema NARRATIVE EXTREMITY EXAM: Palpable thrill in left upper extremity from AV fistula Neuro: COMMON NORMALS: oriented x3, moves all extremities, no focal motor deficits and no sensory deficits noted Psych: COMMON NORMALS: mental status grossly normal Data Other Data: Attestation for Other Data: I personally reviewed and interpreted the following: (Chest x-ray is clear with modest cardiomegaly. No effusions or infiltrates.) A&P Assessment and plan (1) Third degree heart block: Pleasant 84-year-old female with third-degree AV block with a heart rate of average of 35. I have conferred personally with Dr. Heard by phone. We will plan for dual-chamber pacemaker implantation this afternoon. Details risk of the procedure were carefully and frankly discussed. Particular risk related to her renal failure was also carefully reviewed. Risk for pneumothorax and major bleeding also discussed. Possible need for lead revisions also discussed. She states understanding wishes to proceed. We will plan for surgery later this afternoon. Status: Acute Consult Attestations Medical Necessity Statement: Third-degree AV block with a heart rate of 35 Time Spent in Patient Care: 16 - 35 minutes Coding Level of Care Code Acute [facility] Coord[facility] Diagnoses Third degree heart block I44.2
--- NOTE | 2019-06-01 13:07 | ANES.PREANE2 ---
Pre-Anesthetic Assessment Pre-Anesthetic Assessment: Height/Weight: Height 1.55 m Weight 53.524 kg Temp Pulse Resp BP Pulse Ox 98.6 F 35 L 19 H 165/81 93 05/31/19 17:00 06/01/19 11:00 06/01/19 11:00 06/01/19 12:00 06/01/19 12:00 Preop Diagnosis: Third degree heart block Proposed Procedure: Dual pacemaker implant Familial anesthetic complications: None Social: Social History: No alcohol and No tobacco Comment: former smoker Exam: Pre-Anes Outpt Exam: alert, oriented x 3 and clear to auscultation bilaterally Additional Exam Findings (including area of procedure): HR 35 Airway: Cervical ROM: WNL MP: 1 Dentition: False Pulmonary: Pulmonary: COPD CV/HEM: CV/HEM: Anemia and HTN Comments: 3rd degree heart block w/ HR in 30s; currently asymptomatic CHF diastolic : : Chronic renal failure Comments: Dialysis on MWF; last dialysis M Hepatic: Hepatic: None reported GI: GI: GERD Metabolic: Metabolic: DM Neuropsych: Neuropsych: None reported Comments: carotid stenosis Anesthetic Plan: ASA status: 3 Anesthesia: General Risk of > 500 ml blood loss (7ml/kg in children): No Meds/Allergies Current Medications: Current Medications Generic Name Dose Route Start Last Admin Trade Name Freq PRN Reason Stop Dose Admin Alprazolam 0.25 mg 05/31/19 21:45 05/31/19 21:46 Xanax PO 0.25 mg BEDTIME ROSIBEL Administration Chlorhexidine Gluc chato 1 applic 06/01/19 09:00 06/01/19 08:21 Betasept TOPICAL 1 dose DAILY ROSIBEL Administration Heparin Sodium (Be ef Lung) 5,000 unit 05/31/19 18:00 06/01/19 08:22 Heparin SUBCUT Not Given BID ROSIBEL Insulin Aspart 0 unit 05/31/19 18:00 06/01/19 11:29 Novolog SUBCUT Not Given TIDWM ROSIBEL Protocol Insulin Aspart 0 unit 05/31/19 21:00 05/31/19 20:20 Novolog SUBCUT Not Given BEDTIME ROSIBEL Protocol Multivitamins 1 each 06/01/19 09:00 06/01/19 08:18 Allbee-C PO 1 each DAILY ROSIBEL Administration Pantoprazole Sodiu m 40 mg 06/01/19 09:00 06/01/19 08:18 Protonix PO 40 mg DAILY ROSIBEL Administration Additional Medication Information: Current Medications Acetaminophen (Tylenol) 650 mg PO Q6H PRN PRN Reason: Mild/Mod Pain Or Temp >/= 101 Alprazolam (Xanax) 0.25 mg PO BEDTIME ROSIBEL Last Admin: 05/31/19 21:46 Dose: 0.25 mg Documented by: Dextrose ([email or web address]) 25 ml IVP ONCE PRN; Protocol PRN Reason: hypoglycemia protocol Dextrose (D50w) 50 ml IVP PRN PRN; Protocol PRN Reason: hypoglycemia protocol Glucagon (Glucagen) 1 mg IM ONCE PRN; Protocol PRN Reason: Adult Acute Hypoglycemia Prot. Heparin Sodium (Beef Lung) (Heparin) 5,000 unit SUBCUT BID ROSIBEL Last Admin: 05/31/19 17:50 Dose: 5,000 unit Documented by: Dextrose (D5w) 500 mls @ 100 mls/hr IV ONCE PRN; Protocol PRN Reason: Adult Acute Hypoglycemia Prot Insulin Aspart (Novolog) 0 unit SUBCUT TIDWM ROSIBEL; Protocol Last Admin: 06/01/19 07:10 Dose: Not Given Documented by: Insulin Aspart (Novolog) 0 unit SUBCUT BEDTIME ROSIBEL; Protocol Last Admin: 05/31/19 20:20 Dose: Not Given Documented by: Ondansetron HCl (Zofran) 4 mg IVP Q6H PRN PRN Reason: vomiting, or N/V if npo Pantoprazole Sodium (Protonix) 40 mg PO DAILY ROSIBEL PFSH Anesthesia PFSH: Medical History Anemia Carotid stenosis COPD (chronic obstructive pulmonary disease) 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 Diabetes Diastolic congestive heart failure End stage renal disease Essential hypertension GERD (gastroesophageal reflux disease) Interstitial lung disease Third degree heart block Tobacco abuse, in remission Surgical History Hemodialysis access site with arteriovenous graft History of tubal ligation Family History Other CAD (coronary artery disease) Social History Smoking and tobacco status: former smoker Alcohol intake: never Substance/Drug Use: never Data Anesthesia CBC & Chem 7: 06/01/19 04:29 06/01/19 04:29 Other Labs: Laboratory Results - last 48 hr 05/31/19 05/31/19 05/31/19 10:53 10:53 10:53 WBC 8.7 RBC 3.42 L Hgb 10.8 L Hct 34.5 L MCV 100.9 H MCH 31.6 MCHC 31.3 RDW 13.0 Plt Count 256 MPV 10.4 Neut % (Auto) 75.6 Lymph % (Auto) 16.3 [place] % (Auto) 6.4 Eos % (Auto) 1.0 Baso % (Auto) 0.5 Neut # (Auto) 6.6 Lymph # (Auto) 1.4 [place] # (Auto) 0.6 Eos # (Auto) 0.1 Baso # (Auto) 0.0 Nucleated RBC % (auto) 0 Nucleated RBCs # 0.0 PT INR APTT Sodium 138 Potassium 5.3 H Chloride 94 L Carbon Dioxide 27 Anion Gap 22.3 H BUN 59 H Creatinine 7.2 H* Glucose 165 H POC Glucose Calculated Osmolality 288 Calcium 9.2 Phosphorus Magnesium Total Bilirubin 0.2 AST 22 ALT 28 Alkaline Phosphatase 69 Troponin I 6 Hour Troponin I Hi Sens Del Troponin T Baseline 47 H Troponin T 120 Minute Delta Troponin T Total Protein 7.1 Albumin 4.1 Globulin 3.0 TSH 3.22 Free T4 1.15 PTH Intact Calcium (PTH Intact) Hep Bs Antigen Hep Bs Antibody Hepatitis C Antibody Blood Type Rho(D) Type Antibody Screen 05/31/19 05/31/19 05/31/19 10:53 10:53 10:53 WBC RBC Hgb Hct MCV MCH MCHC RDW Plt Count MPV Neut % (Auto) Lymph % (Auto) [place] % (Auto) Eos % (Auto) Baso % (Auto) Neut # (Auto) Lymph # (Auto) [place] # (Auto) Eos # (Auto) Baso # (Auto) Nucleated RBC % (auto) Nucleated RBCs # PT INR APTT Sodium Potassium Chloride Carbon Dioxide Anion Gap BUN Creatinine Glucose POC Glucose Calculated Osmolality Calcium Phosphorus Magnesium 2.4 H Total Bilirubin AST ALT Alkaline Phosphatase Troponin I 6 Hour Troponin I Hi Sens Del Troponin T Baseline Troponin T 120 Minute Delta Troponin T Total Protein Albumin Globulin TSH Free T4 PTH Intact Calcium (PTH Intact) Hep Bs Antigen Non-reactive Hep Bs Antibody 7.2 Hepatitis C Antibody Blood Type Rho(D) Type Antibody Screen 05/31/19 05/31/19 05/31/19 10:53 12:52 16:51 WBC RBC Hgb Hct MCV MCH MCHC RDW Plt Count MPV Neut % (Auto) Lymph % (Auto) [place] % (Auto) Eos % (Auto) Baso % (Auto) Neut # (Auto) Lymph # (Auto) [place] # (Auto) Eos # (Auto) Baso # (Auto) Nucleated RBC % (auto) Nucleated RBCs # PT INR APTT Sodium Potassium Chloride Carbon Dioxide Anion Gap BUN Creatinine Glucose POC Glucose Calculated Osmolality Calcium Phosphorus Magnesium Total Bilirubin AST ALT Alkaline Phosphatase Troponin I 6 Hour 43.22 H Troponin I Hi Sens Del -3.78 L Troponin T Baseline Troponin T 120 Minute 47.09 H Delta Troponin T 0.09 Total Protein Albumin Globulin TSH Free T4 PTH Intact Calcium (PTH Intact) Hep Bs Antigen Hep Bs Antibody Hepatitis C Antibody Non-reactive Blood Type Rho(D) Type Antibody Screen 05/31/19 06/01/19 06/01/19 17:07 04:25 04:29 WBC 9.4 RBC 3.38 L Hgb 10.6 L Hct 35.1 L MCV 103.8 H MCH 31.4 MCHC 30.2 RDW 12.8 Plt Count 226 MPV 11.4 H Neut % (Auto) 74.6 Lymph % (Auto) 16.7 [place] % (Auto) 7.1 Eos % (Auto) 0.9 Baso % (Auto) 0.6 Neut # (Auto) 7.0 Lymph # (Auto) 1.6 [place] # (Auto) 0.7 Eos # (Auto) 0.1 Baso # (Auto) 0.1 Nucleated RBC % (auto) 0 Nucleated RBCs # 0.0 PT 12.80 INR 0.96 APTT 24.6 Sodium Potassium Chloride Carbon Dioxide Anion Gap BUN Creatinine Glucose POC Glucose 106 Calculated Osmolality Calcium Phosphorus Magnesium Total Bilirubin AST ALT Alkaline Phosphatase Troponin I 6 Hour Troponin I Hi Sens Del Troponin T Baseline Troponin T 120 Minute Delta Troponin T Total Protein Albumin Globulin TSH Free T4 PTH Intact Calcium (PTH Intact) Hep Bs Antigen Hep Bs Antibody Hepatitis C Antibody Blood Type Rho(D) Type Antibody Screen 06/01/19 06/01/19 06/01/19 04:29 04:29 07:08 WBC RBC Hgb Hct MCV MCH MCHC RDW Plt Count MPV Neut % (Auto) Lymph % (Auto) [place] % (Auto) Eos % (Auto) Baso % (Auto) Neut # (Auto) Lymph # (Auto) [place] # (Auto) Eos # (Auto) Baso # (Auto) Nucleated RBC % (auto) Nucleated RBCs # PT INR APTT Sodium 136 Potassium 4.6 Chloride 93 L Carbon Dioxide 26 Anion Gap 21.6 H BUN 25 H Creatinine 4.8 H Glucose 128 H POC Glucose 125 Calculated Osmolality 280 L Calcium 9.2 Phosphorus 4.4 Magnesium 2.1 Total Bilirubin 0.4 AST 23 ALT 23 Alkaline Phosphatase 68 Troponin I 6 Hour Troponin I Hi Sens Del Troponin T Baseline Troponin T 120 Minute Delta Troponin T Total Protein 6.9 Albumin 3.9 Globulin 3.0 TSH Free T4 PTH Intact 200.6 H Calcium (PTH Intact) 9.2 Hep Bs Antigen Hep Bs Antibody Hepatitis C Antibody Blood Type Rho(D) Type Antibody Screen 06/01/19 06/01/19 08:20 11:15 WBC RBC Hgb Hct MCV MCH MCHC RDW Plt Count MPV Neut % (Auto) Lymph % (Auto) [place] % (Auto) Eos % (Auto) Baso % (Auto) Neut # (Auto) Lymph # (Auto) [place] # (Auto) Eos # (Auto) Baso # (Auto) Nucleated RBC % (auto) Nucleated RBCs # PT INR APTT Sodium Potassium Chloride Carbon Dioxide Anion Gap BUN Creatinine Glucose POC Glucose 124 Calculated Osmolality Calcium Phosphorus Magnesium Total Bilirubin AST ALT Alkaline Phosphatase Troponin I 6 Hour Troponin I Hi Sens Del Troponin T Baseline Troponin T 120 Minute Delta Troponin T Total Protein Albumin Globulin TSH Free T4 PTH Intact Calcium (PTH Intact) Hep Bs Antigen Hep Bs Antibody Hepatitis C Antibody Blood Type A Positive Rho(D) Type Positive Antibody Screen Negative Cardiac Studies: Holter Monitor 04/20/19
[2019-06-01 14:07] LABS: Glucose Point of Care 157 mg/dL (70-110)
--- NOTE | 2019-06-01 14:40 | PC.NURSE ---
2nd betasept bath given. Complete linen change. No skin issues or reddened area.
[2019-06-01] MEDS: efferdent effervescent 1 EACH DENTAL (14:47)
--- NOTE | 2019-06-01 15:53 | SC_ITS ---
WS: [id number] INTRAOPERATIVE TECHNIQUE: 2 Spot fluoroscopic images for intraoperative purposes. FLUOROSCOPY TIME: 88.6 seconds CLINICAL INFORMATION: PACEMAKER INSERTION COMPARISON: None. FINDINGS: Partially visualized cardiac pacer insertion. SC/C-arm FL for Pacemaker IMPRESSION: Images obtained for intraoperative purposes.
[2019-06-01] MEDS: sodium chloride 0.9% 1,000 ML 100 ML (16:07)
[2019-06-01] MEDS: ceFAZolin 1,000 mg SDV 1000 MG IRRIGATION (17:04)
[2019-06-01] MEDS: lidocaine 1% INJ 20 mL IM (17:17)
--- NOTE | 2019-06-01 18:15 | P.OP_ITS ---
Operative Report Date of procedure: June 01, 2019 Pre-op Diagnosis: Third degree heart block Post-op diagnosis: same Procedure Done: Dual-chamber pacemaker implantation Implants: Medtronic pacemaker and atrial/ventricular leads Pathology: none sent Surgeon: Cornelio Orellana Anesthesia: MAC and Local (12 cc 1% lidocaine infiltrated locally) Estimated blood loss (mL): 30 Complications: None Findings: Fluoroscopy utilized for guidewire, dilator, sheath, and lead advancement and positioning Condition: stable Disposition: ICU Brief History: 84-year-old female admitted to the ICU yesterday after presenting with extreme fatigue, dizziness, and near syncope. She was found to be in third-degree AV block with a heart rate of between 30 and 35. She been evaluated by Dr. Heard, and dual-chamber pacemaker plantation was recommended. Details risk the procedure were carefully and frankly discussed. Appropriate signs have been reviewed and signed. Procedure: Procedure: Ms. Saba was taken to the OR suite and placed in the supine position over a shoulder roll. She received conscious sedation with continuous anesthesia monitoring by. Her entire chest was sterilely prepped and draped. 1% lidocaine was infiltrated in the left subclavicular region. While in Trendelenburg position, utilizing modified seldinger technique, 2 guidewires were placed in the left subclavian vein. This was confirmed in position by fluoroscopy. Next, after infiltration with lidocaine, a subcutaneous pocket was created beginning from the exit point of the guidewire and extending laterally and inferiorly. Cautery was utilized to create the pocket just above the pector joseph musculature. Hemostasis was confirmed. An antibiotic-soaked sponge was placed in the wound. A dilator and tear-away sheath was placed over the first guidewire and advanced under fluoroscopy. Guidewire and dilator were removed. Next using a combination of curved and straight stylettes, the right ventricular lead was placed in position by fluoroscopy. The distal screw was extended. Interrogation was then performed confirming appropriate parameters. The tear- away sheath was then removed and the ventricular lead was sewn to the floor of the subcutaneous pocket. In a similar fashion dilator and tear-away sheath was placed over the 2nd guide wire and advanced under fluoroscopy. Guidewire and dilator were removed. Straight and curved stylettes were used to position the right atrial lead with fluoroscopy. Distal screw was extended. Interrogation was then performed. Tear-away sheath was then removed. Atrial lead was secured to the floor of the subcutaneous pocket. Pocket was irrigated with antibiotic solution and hemostasis again confirmed. Pacing generator was brought into the field, and after confirmation of hemostasis in the subcutaneous pocket, the leads were connected to the generator with appropriate capture. The entire system was interrogated by fluoroscopy. Leads and generator were secured in the pocket. Sponge and needle count was correct. The wound was then closed in 2 layers of 3-0 Vicryl suture. Skin was reapproximated in a subcuticular manner with 4-0 Monocryl suture. A pressure dressing was applied. The left arm was placed in a sling. The patient had equal breath sounds bilaterally. She was then transferred back to the ICU. Family was notified by phone of her return to the ICU after the procedure. Following are the specifics of this system: Right ventricular lead is 56 cm and model 5076. Right atrial lead is 52 cm and is model 5076.. Ventricular lead had sensing of mV with an impedance of 750 ohms. Threshold was 1.25 V Atrial lead had sensing of 2 mV with an impedance of 450 ohms. Threshold was 1.5 V. [employer] generator
[2019-06-01 18:17] LABS: Glucose Point of Care 90 mg/dL (70-110)
[2019-06-01] MEDS: HYDROcodone-acetaminophen 5-325 mg Tablet 1 TAB PO ×2 (18:38→22:20)
[2019-06-01] MEDS: metoprolol tartrate 25 mg Tablet 12.5 MG PO (19:05)
--- NOTE | 2019-06-01 20:00 | PC.NURSE ---
Patient received from ICU via bed. Patient has pressure dressing in place to left chest s/p pacemaker placement. No s/s of bleeding, hematoma, swelling observed. Patient denies pain to site. No distress observed.
[2019-06-01 20:30] LABS: Glucose Point of Care 115 mg/dL (70-110)
[2019-06-01] MEDS: ALPRAZolam 0.25 mg Tablet PO (22:20)
[2019-06-01] MEDS: ceFAZolin 1,000 MG in sodium chloride 0.9% (plus) 50 ML 100 MG IV (23:53)
[2019-06-02 04:00] VITALS: BP 168/53; PULSE 68; RESP 20; TEMP 36.8; O2SAT 94
[2019-06-02 04:09] LABS: Basophils % 0.6 %; Eosinophils # 0.1 10^3/uL (0.0-0.8); Eosinophils % 1.8 %; Hematocrit 35.6 % (37.0-47.0); Hemoglobin 11.5 g/dL (11.5-15.3); Lymphocytes # 1.2 10^3/uL (0.8-4.8); Lymphocytes % 16.6 %; Mean Corpuscular HGB Conc 32.3 g/dL (30.0-36.0); Mean Corpuscular Hemoglobin 31.8 pg (28.0-34.0); Mean Corpuscular Volume 98.3 fL (81-99); Mean Platelet Volume 10.8 fL (7.4-10.4); Monocytes # 0.6 10^3/uL (0.2-0.9); Monocytes % 8.6 %; Neutrophils # 5.1 10^3/uL (1.8-7.7); Neutrophils % 72.1 %; Nucleated Red Blood Cells % 0 %; Platelet Count 226 10^3/cmm (130-400); Red Blood Count 3.62 10^6/uL (4.1-5.3); Red Cell Distribution Width 12.4 % (12.1-15.1); White Blood Count 7.1 10^3/uL (4.0-10.0)
[2019-06-02 04:25] LABS: Alanine Aminotransferase 13 U/L (0-33); Albumin Level 3.9 g/dL (3.5-5.2); Alkaline Phosphatase 74 IU/L (35-105); Anion Gap 21.2 (5-19); Aspartate Amino Transferase 18 U/L (0-32); Blood Urea Nitrogen 35 mg/dL (8-23); Carbon Dioxide 27 mmol/L (22-29); Chloride 95 mmol/L (98-107); Glucose 102 mg/dL (65-115); Magnesium 2.1 mg/dL (1.7-2.3); Osmolality Calculated 286 mOsm/kg (285-295); Phosphorus 5.5 mg/dL (2.5-4.5); Potassium 4.2 mmol/L (3.5-5.1); Sodium 139 mmol/L (136-145); Total Bilirubin 0.2 mg/dL (0.15-1.2); Total Protein 6.9 g/dL (6.6-8.7)
[2019-06-02] MEDS: HYDROcodone-acetaminophen 5-325 mg Tablet 1 TAB PO ×2 (04:40→09:26)
[2019-06-02 06:49] LABS: Glucose Point of Care 107 mg/dL (70-110)
--- NOTE | 2019-06-02 07:36 | PC.NURSE ---
To hemodialysis ushered via bed.
--- NOTE | 2019-06-02 07:36 | PM.PN ---
Subjective Subjective: Interval history: Galina underwent permanent pacemaker placement yesterday and was moved to the second floor. The procedure was uneventful. She is doing well. Vitals/I&O/Wt Last Vital Signs Temp 98.2 F 06/02/19 04:00 Pulse 68 06/02/19 04:00 Resp 20 H 06/02/19 04:00 BP 168/53 06/02/19 04:00 Pulse Ox 94 06/02/19 04:00 06/01/19 06/02/19 06/02/19 22:59 06:59 14:59 Intake Total 450 / 570 410 / 980 Output Total 30 / 130 Balance 420 / 440 410 / 850 Weight last 48 hrs Weight 118 lb Physical Exam Narrative: EXAM NARRATIVE: GENERAL: In general she looks and feels well HEENT: Exam within normal limits. [] NECK: Supple without jugular vein distention. The carotid upstroke is normal without bruits. BACK: Exam normal. LUNGS: Clear. HEART: Regular rate and rhythm. ABDOMEN: Benign without organomegaly or tenderness. EXTREMITIES: No edema. NEUROLOGIC: Exam normal. SKIN: Unremarkable. The area of the pacemaker placement is flat and dry without bleeding or hematoma Data : 06/02/19 03:40 06/02/19 03:40 A&P Assessment and plan (1) Anemia: Status: Acute (2) Diabetes: Status: Acute (3) Essential hypertension: Status: Acute (4) Hemodialysis access site with arteriovenous graft: Status: Acute (5) End stage renal disease: Status: Acute (6) Third degree heart block: Status: Acute (7) History of permanent cardiac pacemaker placement: Status: Acute Additional A&P Information She may be discharged home today. She should see the nurse practitioner in about a week or 10 days in the office for pacemaker interrogation and wound check. Keep the wound dry. Wear shoulder immobilizer at night. No lifting the left arm above the level of the shoulder until seen again. 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
[2019-06-02] MEDS: pantoprazole DR 40 mg Tablet PO (09:26)
[2019-06-02] MEDS: b-complex-vitamin c Tablet 1 EACH PO (09:26)
[2019-06-02] MEDS: metoprolol tartrate 25 mg Tablet 12.5 MG PO (09:26)
--- NOTE | 2019-06-02 10:11 | PC.CHAP ---
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 [] Patient/Family/Request visit [] Outpatient visit [] Follow-up visit [] Physician referral [] Code/Alert [x] Routine visit [] Staff referral [] Actively dying [] Patient sleeping [] Family support [] [x] Out of room [] Palliative care [] [] Receiving care in room [] Pre-surgical visit [] Trauma [] Long length of stay [] ICU visit [] Other: Relational/Emotional Strength [] Patient feels connected with others/family/visitors/staff [] Distress [] Loneliness/isolation [] Abandonment Spirituality of Patient [] Person of Fannie [] Attends Jew of their Fannie [] Believes in Prayer [] Reads Bible or Congregational materials [] There are Spiritual issues to be addressed Goat Herder Interventions [] Prayer [] Active listening [] Non-anxious presence [] Spiritual/emotional support [] Crisis/trauma care [] Spiritual counseling [] Bereavement support [] Provided bereavement packet [] Provided Bible/devotional materials [] Provided toy/stuffed animal, coloring book to patient or family member [] Provided Communion [] Anointing/[place] [] Salvation [x] Completed spiritual assessment [] Other: Impact on Illness or Injury [] Angry [] Fearful [] Anxious [] Often cries [] Exhaustion [] Unable to work [] Unable to attend restorationism [] Unable to walk/stand [] Unable to read [] Unable to drive [] Unable to eat/drink [] Unable to sleep [] Unable to be with family [] Patient intubated [] Other: Summary Time spent with patient
--- NOTE | 2019-06-02 11:22 | P.DS_ITS ---
Discharge Providers Date of Admission: 05/31/19 11:45 Date of Discharge: June 02, 2019 Attending Provider at Admission: Nasir Zimmer MD Attending Provider at Discharge: Nasir Zimmer MD Primary Care Provider: Magdiel Amador MD Diagnoses at Discharge Discharge Diagnosis (1) Anemia: Status: Acute (2) Diabetes: Status: Acute (3) Essential hypertension: Status: Acute (4) Hemodialysis access site with arteriovenous graft: Status: Acute (5) End stage renal disease: Status: Acute (6) Third degree heart block: Status: Acute Problem details: Status post pacemaker placement (7) History of permanent cardiac pacemaker placement: Status: Acute Reason for Visit Reason for Visit: Reason For Visit: bradycardia Hospital Course Hospital Course: Galina presented to the hospital with weakness dizziness and fatigue. She was found to have a heart rate in the 30s, and third-degree heart block. She was previously on a beta-bill. All electrolytes, magnesium were normal. She was placed in the ICU, cardiology consult obtained, and beta- bill held. Nephrology was also consulted for her need for dialysis. The following day, she was still in third-degree heart block, so pacemaker placement was performed. She tolerated this well, was monitored overnight, and was able to be discharged on June 01 following dialysis. TSH was checked and normal. Echocardiogram had recently been done in March and demonstrated preserved EF, minor diastolic dysfunction, mild mitral valve regurgitation. Physical Exam Narrative: EXAM NARRATIVE: General exam no apparent distress Cardiovascular regular rate and rhythm Lungs clear Abdomen is soft positive bowel sounds Extremities no cyanosis clubbing or edema Discharge Data Data Completed and Pending: Completed Studies During Hospitalization Category Date Time Status XR chest 1V [place] [id number] Stat Exams 05/31/19 11:33 Completed Pending at discharge Category Date Time Status Complete Blood Co unt w/Auto AM LABS Lab 06/03/19 04:00 Ordered Comprehensive Met abolic Panel AM LA BS Lab 06/03/19 04:00 Ordered Magnesium AM LABS Lab 06/03/19 04:00 Ordered Phosphorus AM LAB S Lab 06/03/19 04:00 Ordered Urinalysis Stat Lab 05/31/19 12:17 Ordered Labs from last 24 hours 06/02/19 06/02/19 06/02/19 06:29 03:40 03:40 WBC 7.1 RBC 3.62 L Hgb 11.5 Hct 35.6 L MCV 98.3 D MCH 31.8 MCHC 32.3 D RDW 12.4 Plt Count 226 MPV 10.8 H Neut % (Auto) 72.1 Lymph % (Auto) 16.6 [place] % (Auto) 8.6 Eos % (Auto) 1.8 Baso % (Auto) 0.6 Neut # (Auto) 5.1 Lymph # (Auto) 1.2 [place] # (Auto) 0.6 Eos # (Auto) 0.1 Baso # (Auto) 0.0 Nucleated RBC % (a uto) 0 Nucleated RBCs # 0.0 Sodium 139 Potassium 4.2 Chloride 95 L Carbon Dioxide 27 Anion Gap 21.2 H BUN 35 H Creatinine 6.3 H* Glucose 102 POC Glucose 107 Calculated Osmolal ity 286 Calcium 9.0 Phosphorus 5.5 H Magnesium 2.1 Total Bilirubin 0.2 AST 18 ALT 13 Alkaline Phosphata se 74 Total Protein 6.9 Albumin 3.9 Globulin 3.0 06/01/19 06/01/19 05/31/19 20:23 18:13 20:19 WBC RBC Hgb Hct MCV MCH MCHC RDW Plt Count MPV Neut % (Auto) Lymph % (Auto) [place] % (Auto) Eos % (Auto) Baso % (Auto) Neut # (Auto) Lymph # (Auto) [place] # (Auto) Eos # (Auto) Baso # (Auto) Nucleated RBC % (a uto) Nucleated RBCs # Sodium Potassium Chloride Carbon Dioxide Anion Gap BUN Creatinine Glucose POC Glucose 115 90 157 Calculated Osmolal ity Calcium Phosphorus Magnesium Total Bilirubin AST ALT Alkaline Phosphata se Total Protein Albumin Globulin Vitals: Last Vital Signs Temp 98.2 F 06/02/19 04:00 Pulse 68 06/02/19 04:00 Resp 20 H 06/02/19 04:00 BP 168/53 06/02/19 04:00 Pulse Ox 94 06/02/19 04:00 Discharge Plan Discharge Patient Disposition: Home Health Service Condition: Stable Prescriptions: Continued acetaminophen [Tylenol] 325 mg capsule 325 mg PO QID PRN (Reason: Pain) RF: 0 alprazolam 0.25 mg tablet 0.25 mg PO DAILY RF: 0 amlodipine 10 mg tablet 10 mg PO DAILY RF: 0 furosemide 80 mg tablet 40 mg PO BID RF: 0 omeprazole 40 mg capsule,delayed release(DR/EC) 40 mg PO DAILY RF: 0 Tradjenta 5 mg tablet 5 mg PO DAILY RF: 0 flaxseed oil 1,000 mg Capsule 1,000 mg PO DAILY RF: 0 metoprolol succinate 25 mg Tablet Extended Release 24 Hr 12.5 mg PO DAILY RF: 0 Discharge Orders: Discharge Order (Routine); Ordered 06/02/19 Ordered By: Nasir Zimmer Referrals: [facility] [Outside] Bill Heard MD [Physician] - 2 weeks Magdiel Amador MD [Primary Care Provider] - 4-7 days Discharge Diet: Cardiac and Diabetic Discharge Activity: Increase activity as tolerated Activity Restrictions/Additional Instructions: Postoperative instructions per Dr. Orellana. Take all medicine as prescribed Continue dialysis Friday Please follow-up in cardiology clinic, pacemaker clinic, for pacemaker interrogation 1 week Hold discharge until Dr. Orellana does a wound check Discharge Attestations Time Spent in Discharge Care*: greater than 30 min Quality Metrics Clinical Quality Measures During this hospital stay, did patient experience: None Coding Level of Care Code Acute Commercial Hvac Technician for Chg Fwd Diagnoses Anemia D64.9 Diabetes E11.9 Essential hypertension I10 Hemodialysis access site with arteriovenous graft Z99.2 End stage renal disease N18.6 Third degree heart block I44.2 History of permanent cardiac pacemaker placement Z95.0
[2019-06-02 11:38] LABS: Glucose Point of Care 118 mg/dL (70-110)
--- NOTE | 2019-06-02 12:00 | PC.NURSE ---
Pacemaker interrogated Talk to My Point...Exactly Doe. And everything is working well. battery is still not showing due to new placement. 2 episodes of Atrial tachy/Atrial Fib noted. Dr. Merritt notified in person regarding interrogation results.
--- NOTE | 2019-06-02 12:44 | PC.NURSE ---
Oxygen Pt has not been on oxygen during shift change. She reported, I have an oxygen tank at home because i was on oxygen last year of February and only use it for about 3 days post procedure with her AV fistula placement. since then i am not using it. She has been off oxygen during dialysis. Denies any shortness of breath. She reports of nausea when she takes pain pill.
--- NOTE | 2019-06-02 12:48 | P.PN_ITS ---
Subjective Subjective: Interval history: seen at end of dialysis - states she feels well and is ready for discharge later today Vitals/I&O/Wt Last Vital Signs Temp 98.2 F 06/02/19 04:00 Pulse 68 06/02/19 04:00 Resp 20 H 06/02/19 04:00 BP 168/53 06/02/19 04:00 Pulse Ox 94 06/02/19 04:00 06/01/19 06/02/19 06/02/19 22:59 06:59 14:59 Intake Total 450 / 570 410 / 980 240 / 240 Output Total 30 / 130 Balance 420 / 440 410 / 850 240 / 240 Data : 06/02/19 03:40 06/02/19 03:40 A&P Additional A&P Information 1. ESRD on HD MWF 2. s/p pacemaker placement Recommend: return to outpatient dialysis unit 06/04/2019 Attestations 2 Medical Necessity Statement*: stable for discharge home from renal standpoint Coding Level of Care Code Acute Mannequin Refinisher for Elizabeth Lewis
[2019-06-02] MEDS: ceFAZolin 1,000 MG in sodium chloride 0.9% (plus) 50 ML 100 MG IV (12:54)
[2019-06-02] MEDS: ondansetron 2 mg/ML SDV 2 mL 4 MG IVP (12:55)
[2019-06-02 13:12] VITALS: PULSE 68; O2SAT 93
[2019-06-02 14:12] VITALS: BP 168/53; PULSE 68; RESP 20; TEMP 36.8; O2SAT 93
[2019-06-02 15:20] VITALS: BP 138/54; PULSE 75; RESP 16; TEMP 36.6; O2SAT 93
== END 2019-06-02 17:13 | disposition home health service (06) | DRG 242 ==
LOC: ER 12:37 → ICU 12:38 → MEDSURG 06-01 19:46
PROVIDERS: Family Medicine; Internal Medicine Nephrology; Thoracic Surgery (Cardiothoracic Vascular Surgery); Admitting Provider Internal Medicine; Emergency Provider Internal Medicine; Family Provider Family Medicine; PCP Family Medicine; Visit Provider Internal Medicine
PROC: 0JH606Z Insertion of Pacemaker, Dual Chamber into Chest Subcutaneous Tissue and Fascia, Open Approach (ICD-10-PCS; principal; 2019-06-01 16:00)
DX: I44.2 Atrioventricular block, complete (principal); N18.6 End stage renal disease; I13.0 Hypertensive heart and chronic kidney disease with heart failure and stage 1 through stage 4 chronic kidney disease, or unspecified chronic kidney disease; J84.9 Interstitial pulmonary disease, unspecified; I50.30 Unspecified diastolic (congestive) heart failure; R00.1 Bradycardia, unspecified; E11.22 Type 2 diabetes mellitus with diabetic chronic kidney disease; Z99.2 Dependence on renal dialysis; D63.1 Anemia in chronic kidney disease; I34.0 Nonrheumatic mitral (valve) insufficiency; J44.9 Chronic obstructive pulmonary disease, unspecified; I25.10 Atherosclerotic heart disease of native coronary artery without angina pectoris; K21.9 Gastro-esophageal reflux disease without esophagitis; E87.5 Hyperkalemia; Z87.891 Personal history of nicotine dependence
CPT/HCPCS: 12345; 36415; 36416; 71045; 76000; 80053; 82310; 82962; 83735; 83970; 84100; 84439; 84443; 84484; 85025; 85610; 85730; 86706; 86803; 86850; 86900; 87340; 90935; 93005; 96372; 96375; 99283; C1779; C1786; J0690; J1644; J2001; J2405; J2704; J7030; Q3014

== ENCOUNTER 2019-06-16 09:54 | Emergency (ER) | payer MEDICARE, MEDICAID, SELFPAY ==
--- NOTE | 2019-06-16 | US_ITS ---
WS: [id number] INDICATION: Left upper arm hematoma TECHNIQUE: Ultrasound soft tissue FINDINGS: Ultrasound soft tissue left upper arm area of concern. Subcutaneous edema with echogenic he terogeneous collection consistent with hematoma. This measures approximately 6.4 x 4.3 x 3.1 CM. No e vidence of active hemorrhage. US/US soft tissue/extremity [id number] IMPRESSION: Left upper arm soft tissue hematoma measuring 6.4 x 4.3 x 3.1 CM
[2019-06-16 09:56] VITALS: BP 164/58; PULSE 76; RESP 17; TEMP 36.7; O2SAT 97; BMI 22.8
--- NOTE | 2019-06-16 09:57 | W.ED.GENADLT ---
HPI - General Adult General: Chief complaint: Extremity Injury, Upper Stated complaint: BLEEDING FROM GRAFT SITE Time Seen by Provider: 06/16/19 09:56 Source: patient Mode of arrival: ambulatory Limitations: no limitations History of Present Illness: HPI narrative: Patient comes in today for complaints of bleeding at fistula access port site for dialysis. Patient states that she had gotten the second needle inserted and at that time started having bleeding from the site. Patient had pressure dressing applied and then was referred to the ER for further evaluation. Patient appears well. Patient appears in no acute distress. No obvious bleeding is at this time patient does have a small hematoma to that area. 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 Diabetes Dialysis patient Diastolic congestive heart failure End stage renal disease Essential hypertension GERD (gastroesophageal reflux disease) Intermittent atrial fibrillation Interstitial lung disease Third degree heart block Status post pacemaker placement Tobacco abuse, in remission Surgical History Hemodialysis access site with arteriovenous graft History of tubal ligation Social History Smoking and tobacco status: never smoked Alcohol intake: never Physical Exam Const: COMMON NORMALS: no apparent distress and oriented x3 GENERAL APPEARANCE: cooperative HENMT: COMMON NORMALS: normocephalic, TM's normal bilaterally and external nose normal HEAD & SCALP: normal to inspection and normocephalic NOSE: external nose normal TYMPANIC MEMBRANE: TM's normal bilaterally MOUTH: oral and palatal mucosa normal THROAT: posterior oropharynx normal Eye: GENERAL EYE: normal appearance of both eyes Neck/C-Spine: COMMON NORMALS: full ROM Lymph: LYMPHATIC: no lymphadenopathy noted Chest: COMMONS NORMALS: inspection of chest normal Resp: COMMON NORMALS: normal respiratory effort EFFORT & INSPECTION: Yes able to speak in complete sentences Cardio: COMMON NORMALS: regular rate and regular rhythm RATE: regular rate RHYTHM: regular rhythm GI: COMMON NORMALS: non-tender : COMMON NORMALS: Yes no CVA tenderness BLADDER/KIDNEY EXAM: Yes no CVA tenderness Back/Pelvis: COMMON NORMALS: no CVA tenderness and thoracic and lumbar spine normal to inspection Extremity: NARRATIVE EXTREMITY EXAM: Patient has ecchymosis and some mild swelling to the left upper anterior arm. No obvious bleeding is noted at this time. Palpable fistula with normal thrill is noted. Neuro: COMMON NORMALS: oriented x3 and moves all extremities Psych: COMMON NORMALS: mental status grossly normal and cooperative Skin: COMMON NORMALS: no rashes or lesions noted GENERAL SKIN EXAM: no rashes or lesions noted Course Vital Signs: Vital signs: Vital Signs Temperature 98.1 F 06/16/19 09:56 Pulse Rate 67 06/16/19 12:00 Respiratory Rate 18 06/16/19 12:00 Blood Pressure 173/35 06/16/19 12:00 Pulse Oximetry 94 06/16/19 12:00 MDM - General Adult MDM Narrative: Medical decision making narrative: Patient was referred from dialysis clinic due to bleeding from the fistula site. Patient states that there was an access with the second needle and she started bleeding at the site. Site was DC'd and patient was then transported to the ER due to persistent bleeding. On arrival to the ER bleeding had ceased but patient had a hematoma that was noted to her left upper arm. Thrill was noted to the fistula. Distal pulses were intact. Ecchymosis and a hematoma was noted. Vital signs were normal except for elevated blood pressure. Differential diagnosis includes fistula rupture, stenosis, hematoma. Ultrasound was completed and noted the hematoma but no active bleeding at the site of puncture. Patient was monitored for 2 hours without any increasing swelling or any changes in the area of swelling. Reviewed exam with patient with recommendations for treatment follow-up and/or need for return. Patient reported understanding. Discharge Plan Discharge Patient Disposition: Home, Self-Care Clinical Impression: Hematoma Condition: Stable Prescriptions: No Action acetaminophen [Tylenol] 325 mg capsule 650 mg PO Q4H PRN (Reason: Pain) RF: 0 alprazolam 0.25 mg tablet 0.25 mg PO DAILY RF: 0 amlodipine 10 mg tablet 10 mg PO DAILY RF: 0 omeprazole 40 mg capsule,delayed release(DR/EC) 40 mg PO DAILY RF: 0 Tradjenta 5 mg tablet 5 mg PO DAILY RF: 0 furosemide 80 mg tablet 60 mg PO BID RF: 0 aspirin 325 mg tablet 325 mg PO DAILY Qty: 30 RF: 6 flaxseed oil 1,000 mg Capsule 1,000 mg PO DAILY RF: 0 metoprolol succinate 25 mg Tablet Extended Release 24 Hr 12.5 mg PO DAILY RF: 0 ondansetron HCl 4 mg tablet 4 mg PO Q8H PRN (Reason: Nausea) RF: 0 lidocaine-prilocaine 2.5-2.5 % cream See Rx Instructions .ROUTE .COMPLEX RF: 0 calcium acetate(phosphat bind) 667 mg capsule See Rx Instructions .ROUTE .COMPLEX RF: 0 Ocuvite with Lutein 1,000 unit-200 mg-60 unit-2 mg Tablet 1 tab PO DAILY RF: 0 RenaPlex-D 800 mcg-12.5 mg -2,000 unit tablet 1 tab PO QPM RF: 0 Vitamin D3 50 mcg (2,000 unit) Tablet 50 mcg PO BEDTIME RF: 0 Referrals: Magdiel Amador MD [Primary Care Provider] - Discharge Diet: Usual diet Discharge Activity: Increase activity as tolerated Patient Instructions: Contusion in Adults (ED) Activity Restrictions/Additional Instructions: use covered ice pack to the area 10 minute intervals for the next day Return to ER for increased pain and swelling, or high fever Follow-up with dialysis for next treatment as directed. Coding Level of Care Code ED Certified Substance Abuse Counselor for Elizabeth Fwd Exam Comprehensive
[2019-06-16 10:01] VITALS: PULSE 78
--- NOTE | 2019-06-16 10:20 | PC.NURSE ---
Ultrasound at bedside.
--- NOTE | 2019-06-16 10:42 | PC.NURSE ---
Updated patient's daughter Luli via phone.
[2019-06-16 11:19] VITALS: BP 162/44; PULSE 67; RESP 17; O2SAT 97
[2019-06-16 12:00] VITALS: BP 173/35; PULSE 67; RESP 18; O2SAT 94
[2019-06-16 12:33] VITALS: BP 173/35; PULSE 87; RESP 16; O2SAT 94
== END 2019-06-16 12:34 | disposition home or self-care (01) ==
PROVIDERS: Emergency Provider Nurse Practitioner Family; Family Provider Family Medicine; PCP Family Medicine
DX: S40.022A Contusion of left upper arm, initial encounter (principal); X58.XXXA Exposure to other specified factors, initial encounter; Z79.82 Long term (current) use of aspirin; J44.9 Chronic obstructive pulmonary disease, unspecified; Z99.2 Dependence on renal dialysis; I11.0 Hypertensive heart disease with heart failure; I50.30 Unspecified diastolic (congestive) heart failure; E11.22 Type 2 diabetes mellitus with diabetic chronic kidney disease; I13.2 Hypertensive heart and chronic kidney disease with heart failure and with stage 5 chronic kidney disease, or end stage renal disease; N18.6 End stage renal disease; I48.91 Unspecified atrial fibrillation
CPT/HCPCS: 12345; 76882; 99281; 99283

== ENCOUNTER 2019-08-13 15:24 | Outpatient (CLI) | payer MEDICARE, MEDICAID, SELFPAY ==
--- NOTE | 2019-08-13 | USCV_ITS ---
Galina Saba Age: 84 Gender: F : 1935 Exam Date: 08/13/2019 16:10 Ordering Phys: Kevin Patel MD Technologist: Trev Serna Exam Location: [facility] [place] Indication: THROAT HURTS WHILE WALKING Risk Factors: Previous Vascular Surgery: Right Brachial BP: / Left Brachial BP: / Right Left Velocity (cm/s) Spectral Plaque Velocity (cm/s) Spectral Plaque Syst/Diast Broadening Syst/Diast Broadening 58.10/ 6.00 Prox CCA 84.20 / 10.40 61.50/ 6.80 Mid CCA 64.10 / 9.70 70.10/ 6.80 Distal CCA 50.80 / 8.80 147.50/22.50 Prox ICA 185.30/ 30.60 144.20/19.10 Mid ICA 192.50/ 25.20 114.50/7.80 Distal ICA 130.70/ 16.10 224.90 ECA 243.30 2.06 ICA/CCA 3.00 Antegrade Vertebral Antegrade 76.80/ 14.90 cm/s 61.80/ 11.80 cm/s Bi Subclavian [place] 126.1 273.7 0 5 FINDINGS Moderate to heavy heterogeneous plaques at the bifurcations and proximal internal carotid arteries bilaterally Elevated velocities in the external carotid arteries bilaterally Elevated Doppler velocity in the left subclavian artery CONCLUSIONS 1. Moderate to heavy heterogeneous plaques at the bifurcations and proximal internal carotid arteries bilaterally with velocity elevation consistent with 50-79% stenosis. 2. Elevated velocity in the external carotid arteries bilaterally, suggestive of hemodynamically significant stenosis. 3. Elevated Doppler velocity in the left subclavian artery suggestive of greater than 50% stenosis Consider CTA, to better evaluate the aortic arch vessels, if clinically indicated No previous similar studies are available for comparison Dr Alessandro Carney MD [facility] (Electronically Signed) Final Date: 16 August 2019 08:19 S
== END 2019-08-13 15:25 | disposition home or self-care (01) ==
LOC: US 15:25
PROVIDERS: PCP Family Medicine; Visit Provider Internal Medicine Nephrology
DX: R07.0 Pain in throat (principal); I65.23 Occlusion and stenosis of bilateral carotid arteries
CPT/HCPCS: 93880

== ENCOUNTER 2019-09-03 07:55 | Outpatient (CLI) | payer MEDICARE, MEDICAID, SELFPAY ==
--- NOTE | 2019-09-03 07:59 | CT_ITS ---
WS: [id number] CTA HEAD AND NECK TECHNIQUE: Contrast enhanced CTA of the head and neck with coronal and sagittal reformatted images an d maximum intensity projection (MIP) images. NASCET criteria utilized. CLINICAL INFORMATION: carotid stenosis COMPARISON: Ultrasound August 13, 2019 DLP: 1813.[address] scans at [facility] use at least one of these dose optimization techniques: automat ed exposure control; mA and/or kV adjustment per patient size (includes targeted exams where dose is matched to clinical indication); or iterative reconstruction. FINDINGS: Noncontrast head is unremarkable. No evidence of intracranial hemorrhage or mass effect. Ve ntricular system and basal cisterns are patent. 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 Normal lam-white differentiation. Mild parenchymal volume loss. Mild small vessel changes. Mild muco natacha thickening right mastoid air cells. Small amount of fluid in the sphenoid sinus. RIGHT: Right common carotid artery is patent. Dense calcified atheromatous disease right carotid bulb extending into the ICA. Right ICA is patent to the skull base. Right ICA stenosis 60%. LEFT: Left common carotid artery is patent. Calcified atheromatous disease left carotid bulb extendin g into the ICA. Moderate ECA stenosis. Left ICA is patent to the skull base. Left ICA stenosis 30%. INTRACRANIAL CTA: [place] is unremarkable. Both vertebral arteries are patent. Basilar artery is patent. Cheryl l vascularity to the YRN and MCA territories bilaterally. No flow-limiting stenosis. [place] lobe. Emphysematous changes in the lung apices bilaterally. Normal posterior nasopharynx. No c ervical lymphadenopathy. Moderate spondylitic changes cervical spine with mild central canal stenosis C5-C6 and C6-C7. Left subclavian artery is patent. Mild stenosis at the left subclavian artery. No f low-limiting stenosis. CT/CT angio headneck* [id number]/[id number] IMPRESSION: 1. Right ICA stenosis 60%. 2. Left ICA stenosis 32%. 3. Intracranial CTA unremarkable.
[2019-09-03] MEDS: iodixanol 320 mg/mL 100mL Btl IV (08:41)
== END 2019-09-03 07:56 | disposition home or self-care (01) ==
LOC: RADWPI 07:56
PROVIDERS: Family Provider Family Medicine; PCP Family Medicine; Visit Provider Nurse Practitioner Family
DX: I65.23 Occlusion and stenosis of bilateral carotid arteries
CPT/HCPCS: 70496; 70498; Q9967

== ENCOUNTER 2019-09-19 13:05 | Emergency (ER) | payer MEDICARE, MEDICAID, SELFPAY ==
[2019-09-19 13:16] VITALS: BP 168/66; PULSE 73; RESP 14; TEMP 36.8; O2SAT 99; BMI 23.4
--- NOTE | 2019-09-19 14:48 | W.ED.GENADLT ---
HPI - General Adult General: Chief complaint: General Medical Stated complaint: sob Time Seen by Provider: 09/19/19 13:25 History of Present Illness: HPI narrative: patient complains of dysphagia and neck pain that has been going on for approximately 6 months. She had a CT scan 2 weeks ago that did not reveal an etiology for this discomfort. 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 Diabetes Diastolic congestive heart failure End stage renal disease Essential hypertension GERD (gastroesophageal reflux disease) Intermittent atrial fibrillation Interstitial lung disease Third degree heart block Status post pacemaker placement Surgical History Hemodialysis access site with arteriovenous graft History of tubal ligation S/P hemodialysis catheter insertion Family History Other CAD (coronary artery disease) Denies family history of Anesthesia complication Bleeding disorder Social History (Updated 08/19/19 @ 11:42 by Sharmaine Manzo RN) Smoking and tobacco status: never smoked Alcohol intake: never Physical Exam Const: COMMON NORMALS: no acute distress, patient oriented x3, no limitations and alert HENMT: COMMON NORMALS: normocephalic, atraumatic, external ears normal and Normal external nose present HEAD & SCALP: normocephalic and atraumatic FACE & SINUS: normal facial exam NOSE: Normal external nose present EXTERNAL EAR: Yes external ears normal MOUTH: Normal oral and palatal mucosa present Neck/C-Spine: COMMON NORMALS: full ROM, no lymphadenopathy, supple, no meningeal signs and no JVD GENERAL: Yes normal visual inspection Resp: COMMON NORMALS: normal respiratory effort, No retractions, No use of accessory muscles and clear to auscultation bilaterally AUSCULTATION: clear to auscultation bilaterally Cardio: COMMON NORMALS: no JVD, regular rate and regular rhythm RATE: regular rate RHYTHM: regular rhythm GI: COMMON NORMALS: Normal to inspection, nondistended, normoactive bowel sounds present, Soft to palpation, non-tender, No hepatosplenomegaly present and no masses INSPECTION: Yes normal to inspection AUSCULTATION: Yes normoactive bowel sounds PALPATION: Yes Soft to palpation and Yes No hepatosplenomegaly present PERCUSSION: normal to percussion : COMMON NORMALS: Yes no CVA tenderness and Yes normal external appearance BLADDER/KIDNEY EXAM: Yes no CVA tenderness Back/Pelvis: COMMON NORMALS: no CVA tenderness, thoracic and lumbar spine normal to inspection, no thoracic nor lumbar tenderness, thoraco-lumbar ROM normal and straight leg raise negative bilaterally Extremity: COMMON NORMALS: normal to inspection, full ROM, capillary refill normal, no joint enlargement, no clubbing, cyanosis or edema, no calf tenderness and no pedal edema Neuro: COMMON NORMALS: patient oriented x3, moves all extremities, no focal motor deficits and no sensory deficits noted SENSORIUM/ORIENTATION: Yes alert MENINGEAL SIGNS: Yes no meningeal signs Psych: COMMON NORMALS: mental status grossly normal, Normal thought process present, cooperative, normal affect and speech normal SPEECH: Yes normal speech THOUGHT PROCESS: Normal thought process present Skin: COMMON NORMALS: no rashes or lesions noted, no wounds, turgor normal, no jaundice, no petechiae and no mottling GENERAL SKIN EXAM: no rashes or lesions noted and turgor normal Course ED course: CTA of the neck 2 weeks ago reveals no acute abnormalities would account for this patient's discomfort. Discussed this and her symptoms with the patient. I suggested that she contact Dr. Dolan first thing tomorrow morning for further evaluation and treatment. She is also instructed to return to the emergency room for problems or concerns. Vital Signs: Vital signs: Vital Signs Temperature 98.2 F 09/19/19 13:16 Pulse Rate 73 09/19/19 13:16 Respiratory Rate 14 09/19/19 13:16 Blood Pressure 168/66 09/19/19 13:16 Pulse Oximetry 99 09/19/19 13:16 Discharge Plan Discharge Patient Disposition: Home Clinical Impression: Dysphagia Qualifiers: Dysphagia type: unspecified Qualified Code(s): R13.10 - Dysphagia, unspecified Condition: Stable Prescriptions: No Action acetaminophen [Tylenol] 325 mg capsule 650 mg PO Q4H PRN (Reason: Pain) RF: 0 alprazolam 0.25 mg tablet 0.25 mg PO DAILY RF: 0 amlodipine 10 mg tablet 10 mg PO DAILY RF: 0 omeprazole 40 mg capsule,delayed release(DR/EC) 40 mg PO DAILY RF: 0 Tradjenta 5 mg tablet 5 mg PO DAILY RF: 0 furosemide 80 mg tablet 60 mg PO BID RF: 0 aspirin 325 mg tablet 325 mg PO DAILY Qty: 30 RF: 6 flaxseed oil 1,000 mg Capsule 1,000 mg PO DAILY RF: 0 metoprolol succinate 25 mg Tablet Extended Release 24 Hr 12.5 mg PO DAILY RF: 0 ondansetron HCl 4 mg tablet 4 mg PO Q8H PRN (Reason: Nausea) RF: 0 lidocaine-prilocaine 2.5-2.5 % cream See Rx Instructions .ROUTE .COMPLEX RF: 0 calcium acetate(phosphat bind) 667 mg capsule See Rx Instructions .ROUTE .COMPLEX RF: 0 Ocuvite with Lutein 1,000 unit-200 mg-60 unit-2 mg Tablet 1 tab PO DAILY RF: 0 RenaPlex-D 800 mcg-12.5 mg -2,000 unit tablet 1 tab PO QPM RF: 0 Vitamin D3 50 mcg (2,000 unit) Tablet 50 mcg PO BEDTIME RF: 0 Discharge Orders: Discharge Order (Routine); Ordered 09/19/19 Ordered By: Leno Herron Referrals: Magdiel Amador MD [Primary Care Provider] - Coding Level of Care Code ED Gut Dropper for Chg Fwd Exam Comprehensive
[2019-09-19 15:09] VITALS: BP 187/81; PULSE 78; RESP 18; O2SAT 97
--- NOTE | 2019-09-20 09:36 | PC.SOCIAL ---
Faxed pt referral to Dr Dolan office spoke with Monica to alert her of this at office. Faxed documents with confirmation that fax was sent successfully.
--- NOTE | 2019-09-20 15:00 | PC.SOCIAL ---
Referral received from ED regarding ENT appt. Referral sent with call received indicating patient has appt with Dr Dolan on October 07, 2019 at 10am. Per EMR patient has returned to ED and has been admitted. Added this appt to her DC paperwork. Updated Dr Russell as well who is the attending for her current hospitalization.
--- NOTE | 2019-09-30 11:41 | DCPLANNER ---
mds manager called the office of Dr. Dolan to confirm that a follow up appointment had been scheduled for patient. mds manager spoke with Jo-Ann, was told that an appointment is scheduled for , October 07, 2019 at 10:[address] Dolan. Clinic will call patient with appointment information.
--- NOTE | 2019-10-14 12:17 | DCPLANNER ---
Patient had a follow up appointment scheduled for 10.07.19 with Kelsi Bailey - patient did not attend appointment.
== END 2019-09-19 15:10 | disposition home or self-care (01) ==
PROVIDERS: Emergency Provider Family Medicine; PCP Family Medicine
DX: R13.10 Dysphagia, unspecified (principal); Z79.82 Long term (current) use of aspirin; J44.9 Chronic obstructive pulmonary disease, unspecified; I50.30 Unspecified diastolic (congestive) heart failure; I13.2 Hypertensive heart and chronic kidney disease with heart failure and with stage 5 chronic kidney disease, or end stage renal disease; E11.22 Type 2 diabetes mellitus with diabetic chronic kidney disease; N18.6 End stage renal disease; Z99.2 Dependence on renal dialysis
CPT/HCPCS: 12345; 99281

== ENCOUNTER 2019-09-20 07:56 | Inpatient (IN) | payer MEDICARE, MEDICAID, SELFPAY ==
[2019-09-20] VITALS (7 sets, daily range): BP systolic 122–160; BP diastolic 47–67; PULSE 61–83; RESP 10–24; TEMP 36.7–37; O2SAT 92–100; BMI 23.4
--- NOTE | 2019-09-20 08:09 | ED_ITS ---
HPI - SOB/Dyspnea General: Chief Complaint: Shortness of Breath/Dyspnea Stated Complaint: SORE THROAT Time Seen by Provider: 09/20/19 08:06 History of Present Illness: HPI Narrative: 84-year-old female presents complaining of shortness of breath is been going on for several months. She has CTA of the head and neck that showed right internal carotid stenosis at 60% left internal carotid stenosis at 30%. Previous ejection fraction on echo was 65% with diastolic grade 1. She says she is just sick does not feel good she feels like something is caught in her throat her daughter is convinced there is something impacted in her esophagus but she has been able to swallow liquids she does state her reflux is been horrible last 6 months. She was seen by Dr. Mcclellan and evaluated when talking to her she states that shortness of breath is worse when she walks and gets better when she rests when she walks she will get a tight sensation in her chest radiating up into her neck and feels like she is choking that will also resolve when she stops walking. She denies any hematemesis or coffee-ground emesis she is not had a fever she has been very hoarse voice. She feels like she has had a little bit more of a productive cough lately but it has been mostly clear sputum she not been around anyone that is been exposed to COVID that she is aware of or anyone is been under investigation.eli WEINSTEIN elicited complaint: shortness of breath and anxiety Pertinent past history: diabetes and other (Carotid stenosis and gastroesophageal reflux disease) Onset (ago): month(s) Context: occurred during exertion and anxiety Timing: intermittent Severity: moderate Exacerbating factors: exertion Relieving factors: oxygen and rest Known history of: diabetes Associated symptoms: Reports chest congestion, diaphoresis, lightheadedness, nausea and sense of impending doom; Deny fever(s), hemoptysis, orthopnea or palpitations Treatment prior to arrival: none Review of Systems Const: Reports: diaphoresis; Denies: fever(s) ENMT: Denies: throat pain, ear or mastoid pain, nasal discharge or nasal congestion Card: Reports: lightheadedness; Denies: palpitations or orthopnea Resp: Reports: chest congestion; Denies: hemoptysis GI: Reports: nausea : Denies: flank pain, difficulty voiding, dysuria, urinary frequency or urinary urgency Skin/Breast: Denies: rash or pruritus PFSH ED PFSH: Medical History Anemia Carotid stenosis COPD (chronic obstructive pulmonary disease) 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 Diabetes Diastolic congestive heart failure End stage renal disease Essential hypertension GERD (gastroesophageal reflux disease) Intermittent atrial fibrillation Interstitial lung disease Third degree heart block Status post pacemaker placement Surgical History Hemodialysis access site with arteriovenous graft History of laparoscopic cholecystectomy History of tubal ligation S/P hemodialysis catheter insertion Family History Mother Cancer Lung cancer Father Diabetes Other CAD (coronary artery disease) Denies family history of Anesthesia complication Bleeding disorder Social History Smoking and tobacco status: former smoker Alcohol intake: never Substance/Drug Use: never Physical Exam Const: COMMON NORMALS: no acute distress GENERAL APPEARANCE: cooperative and comfortable ORIENTATION/CONSCIOUSNESS: Yes awake, Yes oriented to person, Yes oriented to place and Yes oriented to time HENMT: COMMON NORMALS: normocephalic and atraumatic HEAD & SCALP: normocephalic and atraumatic Eye: COMMON NORMALS: Equal, round and reactive pupils present, EOMs intact bilaterally, conjunctivae normal and no scleral icterus CONJUNCTIVA: Yes conjunctivae normal PUPIL: Yes Equal, round and reactive pupils present Neck/C-Spine: COMMON NORMALS: full ROM, no lymphadenopathy, supple and no JVD Lymph: LYMPHATIC: no lymphadenopathy noted and no lymphedema noted Resp: COMMON NORMALS: normal respiratory effort, No retractions, No use of accessory muscles and clear to auscultation bilaterally AUSCULTATION: clear to auscultation bilaterally Cardio: COMMON NORMALS: no JVD, regular rate, regular rhythm and No murmurs present (Cardio) RATE: regular rate RHYTHM: regular rhythm GI: COMMON NORMALS: Soft to palpation and No hepatosplenomegaly present AUSCULTATION: Yes normoactive bowel sounds PALPATION: Yes Soft to palpation, No Tenderness to palpation present (GI), No Guarding due to palpation present (GI) and Yes No hepatosplenomegaly present Extremity: COMMON NORMALS: normal to inspection, capillary refill normal, no clubbing, cyanosis or edema and no calf tenderness Neuro: SENSORIUM/ORIENTATION: Yes oriented to person, Yes oriented to place and Yes oriented to time Skin: COMMON NORMALS: no rashes or lesions noted GENERAL SKIN EXAM: no rashes or lesions noted Course Vital Signs: Vital signs: Vital Signs Temperature 98.1 F 09/20/19 12:00 Pulse Rate 83 09/20/19 12:00 Respiratory Rate 10 L 09/20/19 12:00 Blood Pressure 144/64 09/20/19 12:00 Pulse Oximetry 100 09/20/19 12:00 MDM - SOB/Dyspnea MDM Narrative: Medical decision making narrative: Patient does have end-stage renal disease. I think her symptoms are very concerning for being angina. She also needs have a CT of the chest to rule out pulmonary emboli given the length of time this is gone on. Discussed Dr. Russell she is in agreement will consult nephrology she is due to get a run of dialysis today so we can do her CT scan before dialysis and then she can go to dialysis will take care of any issues with her with the dye load. Likely will have to do the same with her trip [facility] anticipating she will likely need discussed with Dr. Russell she will consult cardiology. Lab Data: Labs: Lab Results 09/20/19 09/20/19 09/20/19 Range/Units 08:26 08:47 08:47 WBC 9.9 (4.0-10.0) 10^3/ uL RBC 3.43 L (4.1-5.3) 10^6/u L Hgb 10.6 L (11.5-15.3) g/dL Hct 33.0 L (37.0-47.0) % MCV 96.2 (81-99) fL MCH 30.9 (28.0-34.0) pg MCHC 32.1 (30.0-36.0) g/dL RDW 13.1 (12.1-15.1) % Plt Count 220 (130-400) 10^3/c mm MPV 10.7 H (7.4-10.4) fL Neut % (Auto) 83.5 % Lymph % (Auto) 7.0 % [place] % (Auto) 8.2 % Eos % (Auto) 0.4 % Baso % (Auto) 0.6 % Neut # (Auto) 8.22 H (1.8-7.7) 10^3/u L Lymph # (Auto) 0.7 L (0.8-4.8) 10^3/u L [place] # (Auto) 0.8 (0.2-0.9) 10^3/u L Eos # (Auto) 0.0 (0.0-0.8) 10^3/u L Baso # (Auto) 0.1 (0.0-0.1) 10^3/u L Nucleated RBC % (a uto) 0 % Nucleated RBCs # 0.0 /100WBC PT (10.5-13.3) SECO NDS INR (0.8-1.2) D-Dimer 1.12 H (0-0.59) ug/mIFE U Sodium (136-145) mmol/L Potassium (3.5-5.1) mmol/L Chloride (98-107) mmol/L Carbon Dioxide (22-29) mmol/L Anion Gap (5-19) BUN (8-23) mg/dL Creatinine (0.5-0.9) mg/dL GFR Calculation Glucose (65-115) mg/dL Calculated Osmolal ity (285-295) mOsm/k g Calcium (8.5-10.5) mg/dL Phosphorus (2.5-4.5) mg/dL Magnesium (1.7-2.3) mg/dL Total Bilirubin (0.15-1.2) mg/dL AST (0-32) U/L ALT (0-33) U/L Alkaline Phosphata se (35-105) IU/L Troponin T Baselin e (0-10) ng/L NT-Pro-B Natriuret Pep (0-450) pg/mL Total Protein (6.6-8.7) g/dL Albumin (3.5-5.2) g/dL Globulin (1.3-4.6) g/dL TSH (0.27-4.20) uIU/ mL Urine Color Yellow (Yellow) Urine Appearance Clear (CLEAR) Urine pH 9 H (5-7) Ur Specific Gravit y 1.010 (1.005-1.030) Urine Protein 2+ H (Negative) Urine Glucose (UA) Norm (Normal) Urine Ketones Negative (Negative) Urine Blood 2+ H (Negative) Urine Nitrate Negative (Negative) Urine Bilirubin Neg (NEGATIVE) Prot Sulfosalicyli c Acd Positive (Negative) Urine Urobilinogen Norm (Negative) mg/dL Ur Leukocyte Pilar ase Negative (Negative) Urine RBC 0-4 H (0-2) /hpf Urine WBC 0-4 H (0-5) /hpf Ur Squamous Epith Cells 5-10 H (0-5) Amorphous Sediment Not Reportable Urine Bacteria Trace (NONE) 09/20/19 09/20/19 09/20/19 Range/Units 08:47 08:47 08:47 WBC (4.0-10.0) 10^3/ uL RBC (4.1-5.3) 10^6/u L Hgb (11.5-15.3) g/dL Hct (37.0-47.0) % MCV (81-99) fL MCH (28.0-34.0) pg MCHC (30.0-36.0) g/dL RDW (12.1-15.1) % Plt Count (130-400) 10^3/c mm MPV (7.4-10.4) fL Neut % (Auto) % Lymph % (Auto) % [place] % (Auto) % Eos % (Auto) % Baso % (Auto) % Neut # (Auto) (1.8-7.7) 10^3/u L Lymph # (Auto) (0.8-4.8) 10^3/u L [place] # (Auto) (0.2-0.9) 10^3/u L Eos # (Auto) (0.0-0.8) 10^3/u L Baso # (Auto) (0.0-0.1) 10^3/u L Nucleated RBC % (a uto) % Nucleated RBCs # /100WBC PT 12.20 (10.5-13.3) SECO NDS INR 0.88 (0.8-1.2) D-Dimer (0-0.59) ug/mIFE U Sodium 139 (136-145) mmol/L Potassium 4.2 (3.5-5.1) mmol/L Chloride 97 L (98-107) mmol/L Carbon Dioxide 26 (22-29) mmol/L Anion Gap 20.2 H (5-19) BUN 32 H (8-23) mg/dL Creatinine 4.5 H (0.5-0.9) mg/dL GFR Calculation Not Reportable Glucose 133 H (65-115) mg/dL Calculated Osmolal ity 287 (285-295) mOsm/k g Calcium 9.2 (8.5-10.5) mg/dL Phosphorus (2.5-4.5) mg/dL Magnesium (1.7-2.3) mg/dL Total Bilirubin 0.3 (0.15-1.2) mg/dL AST 29 (0-32) U/L ALT 15 (0-33) U/L Alkaline Phosphata se 77 (35-105) IU/L Troponin T Baselin e 168 H* (0-10) ng/L NT-Pro-B Natriuret Pep (0-450) pg/mL Total Protein 6.9 (6.6-8.7) g/dL Albumin 4.3 (3.5-5.2) g/dL Globulin 2.6 (1.3-4.6) g/dL TSH (0.27-4.20) uIU/ mL Urine Color (Yellow) Urine Appearance (CLEAR) Urine pH (5-7) Ur Specific Gravit y (1.005-1.030) Urine Protein (Negative) Urine Glucose (UA) (Normal) Urine Ketones (Negative) Urine Blood (Negative) Urine Nitrate (Negative) Urine Bilirubin (NEGATIVE) Prot Sulfosalicyli c Acd (Negative) Urine Urobilinogen (Negative) mg/dL Ur Leukocyte Pilar ase (Negative) Urine RBC (0-2) /hpf Urine WBC (0-5) /hpf Ur Squamous Epith Cells (0-5) Amorphous Sediment Urine Bacteria (NONE) 09/20/19 Range/Units 08:47 WBC (4.0-10.0) 10^3/ uL RBC (4.1-5.3) 10^6/u L Hgb (11.5-15.3) g/dL Hct (37.0-47.0) % MCV (81-99) fL MCH (28.0-34.0) pg MCHC (30.0-36.0) g/dL RDW (12.1-15.1) % Plt Count (130-400) 10^3/c mm MPV (7.4-10.4) fL Neut % (Auto) % Lymph % (Auto) % [place] % (Auto) % Eos % (Auto) % Baso % (Auto) % Neut # (Auto) (1.8-7.7) 10^3/u L Lymph # (Auto) (0.8-4.8) 10^3/u L [place] # (Auto) (0.2-0.9) 10^3/u L Eos # (Auto) (0.0-0.8) 10^3/u L Baso # (Auto) (0.0-0.1) 10^3/u L Nucleated RBC % (a uto) % Nucleated RBCs # /100WBC PT (10.5-13.3) SECO NDS INR (0.8-1.2) D-Dimer (0-0.59) ug/mIFE U Sodium (136-145) mmol/L Potassium (3.5-5.1) mmol/L Chloride (98-107) mmol/L Carbon Dioxide (22-29) mmol/L Anion Gap (5-19) BUN (8-23) mg/dL Creatinine (0.5-0.9) mg/dL GFR Calculation Glucose (65-115) mg/dL Calculated Osmolal ity (285-295) mOsm/k g Calcium (8.5-10.5) mg/dL Phosphorus 3.9 (2.5-4.5) mg/dL Magnesium 2.2 (1.7-2.3) mg/dL Total Bilirubin (0.15-1.2) mg/dL AST (0-32) U/L ALT (0-33) U/L Alkaline Phosphata se (35-105) IU/L Troponin T Baselin e (0-10) ng/L NT-Pro-B Natriuret Pep 46983 H (0-450) pg/mL Total Protein (6.6-8.7) g/dL Albumin (3.5-5.2) g/dL Globulin (1.3-4.6) g/dL TSH 3.09 (0.27-4.20) uIU/ mL Urine Color (Yellow) Urine Appearance (CLEAR) Urine pH (5-7) Ur Specific Gravit y (1.005-1.030) Urine Protein (Negative) Urine Glucose (UA) (Normal) Urine Ketones (Negative) Urine Blood (Negative) Urine Nitrate (Negative) Urine Bilirubin (NEGATIVE) Prot Sulfosalicyli c Acd (Negative) Urine Urobilinogen (Negative) mg/dL Ur Leukocyte Pilar ase (Negative) Urine RBC (0-2) /hpf Urine WBC (0-5) /hpf Ur Squamous Epith Cells (0-5) Amorphous Sediment Urine Bacteria (NONE) Discharge Plan Discharge Patient Disposition: Admitted As Inpatient Admit Provider: Jacqui Russell Clinical Impression: Angina pectoris, End stage renal disease, Essential hypertension, Diabetes, Carotid stenosis, History of permanent cardiac pacemaker placement, Intermittent atrial fibrillation Condition: Stable Interventions: ED Discharge Assessment Last Done: 09/20/19 11:04 ED Charges Last Done: 09/20/19 11:04 Discharge Date/Time: 09/20/19 11:05 Coding Level of Care Code ED [employer] [employer] for Elizabeth Lewis
--- NOTE | 2019-09-20 08:10 | XRR_ITS ---
PROCEDURE INFORMATION: Exam: XR Chest, 1 View Exam date and time: 09/20/2019 8:35 AM Age: 84 years old Clinical indication: Cough and shortness of breath; Prior surgery; Surgery type: Pace maker; Additional info: Dyspnea/cough TECHNIQUE: Imaging protocol: XR of the chest Views: Frontal portable upright view of the chest. COMPARISON: CR XR chest 1V portable [id number] 05/31/2019 11:38 AM FINDINGS: Tubes, catheters and devices: Right proximal humeral greater tuberosity suture anchor. Medial left upper extremity small surgical clips. Lungs: Incidental note is made of an azygos segment of the right upper lobe, a normal variant. The pulmonary vasculature is more congested and ill-defined. Interstitial prominence bilaterally in the lower lung zones. Pleural space: No pleural effusion. No pneumothorax. Heart/Mediastinum: Mediastinum: Stable. Vasculature: A dual lead left subclavian permanent pacemaker is present. The right atrial and right ventricular leads appear to be in good position. Moderate aortic arch atherosclerotic calcification without ectasia. Bones/joints: Stable. XR/XR chest 1V portable [id number] IMPRESSION: 1. Increased pulmonary vascular congestion. 2. Interstitial pulmonary edema.
--- NOTE | 2019-09-20 08:10 | ECG_ITS ---
[facility] Test Date: 2019-09-20 Pat Name: Galina Saba Department: Room: Gender: Female Stop Attacher: : [phone] Requested By: Jalen Soliman Order Number: [id number] Milad MD: Mireya Reyes M.D. Measurements Intervals [place] Rate: 84 P: 54 MT: 197 QRS: -58 QRSD: 164 T: 81 QT: 419 QTc: 498 Interpretive Statements ELECTRONIC VENTRICULAR PACEMAKER ABNORMAL RHYTHM ECG Compared to ECG 05/31/2019 17:41:46 Sinus bradycardia no longer present Right bundle-branch block no longer present Left anterior fascicular block no longer present Electronically Signed On 09-20-2019 21:23:23 CDT by Mireya Reyes M.D. [id number]
[2019-09-20 09:00] LABS: Basophils # 0.1 10^3/uL (0.0-0.1); Basophils % 0.6 %; Eosinophils % 0.4 %; Hemoglobin 10.6 g/dL (11.5-15.3); Lymphocytes # 0.7 10^3/uL (0.8-4.8); Mean Corpuscular HGB Conc 32.1 g/dL (30.0-36.0); Mean Corpuscular Hemoglobin 30.9 pg (28.0-34.0); Mean Corpuscular Volume 96.2 fL (81-99); Mean Platelet Volume 10.7 fL (7.4-10.4); Monocytes # 0.8 10^3/uL (0.2-0.9); Monocytes % 8.2 %; Neutrophils # 8.22 10^3/uL (1.8-7.7); Neutrophils % 83.5 %; Nucleated Red Blood Cells % 0 %; Platelet Count 220 10^3/cmm (130-400); Red Blood Count 3.43 10^6/uL (4.1-5.3); Red Cell Distribution Width 13.1 % (12.1-15.1); White Blood Count 9.9 10^3/uL (4.0-10.0)
[2019-09-20 09:11] LABS: Protein Urine 2+ (Negative); Urine Appearance Clear (CLEAR); Urine Color Yellow (Yellow); pH Urine 9 (5-7)
[2019-09-20 09:12] LABS: Add Urine Culture? No; Add Urine Microscopic? YES; Bacteria Urine TRACE; Bilirubin Urine Neg (NEGATIVE); Blood Urine 2+ (Negative); Glucose Urine UA Norm (Normal); Ketones Urine Negative (Negative); Leukocyte Esterase Urine Negative (Negative); Nitrate Urine Negative (Negative); RBC Urine 0-4 /hpf (0-2); Sulfosalicylic Acid Urine Positive (Negative); Urobilinogen Urine Norm (Negative); WBC Urine 0-4 /hpf (0-5)
[2019-09-20 09:20] LABS: Alanine Aminotransferase 15 U/L (0-33); Albumin Level 4.3 g/dL (3.5-5.2); Alkaline Phosphatase 77 IU/L (35-105); Anion Gap 20.2 (5-19); Aspartate Amino Transferase 29 U/L (0-32); Blood Urea Nitrogen 32 mg/dL (8-23); Calcium 9.2 mg/dL (8.5-10.5); Carbon Dioxide 26 mmol/L (22-29); Chloride 97 mmol/L (98-107); Globulin 2.6 g/dL (1.3-4.6); Glucose 133 mg/dL (65-115); Osmolality Calculated 287 mOsm/kg (285-295); Potassium 4.2 mmol/L (3.5-5.1); Sodium 139 mmol/L (136-145); Total Bilirubin 0.3 mg/dL (0.15-1.2); Total Protein 6.9 g/dL (6.6-8.7)
[2019-09-20 09:26] LABS: D Dimer 1.12 ug/mIFEU (0-0.59)
[2019-09-20 09:29] LABS: Troponin(5th) Baseline 168 ng/L (0-10)
--- NOTE | 2019-09-20 09:49 | CTR_ITS ---
PROCEDURE INFORMATION: Exam: CT Angiography Chest With Contrast Exam date and time: 09/20/2019 11:20 AM Age: 84 years old Clinical indication: Abnormal findings; Abnormal diagnostic tests; Elevated d-dimer; Shortness of breath; Prior surgery; Surgery type: Pacemaker, dialysis cath; Additional info: Dyspnea/elevated didimer TECHNIQUE: Imaging protocol: Computed tomographic angiography of the chest with intravenous contrast. 3D rendering: MIP and/or 3D reconstructed images were created by the technologist. Radiation optimization: All CT scans at this facility use at least one of these dose optimization techniques: automated exposure control; mA and/or kV adjustment per patient size (includes targeted exams where dose is matched to clinical indication); or iterative reconstruction. Contrast material: VISI 320; Contrast volume: 63 ml; Contrast route: INTRAVENOUS (IV); COMPARISON: CR XR chest 1V portable [id number] 09/20/2019 8:22 AM RADIATION DOSE METRICS: Total DLP (mGy-cm): 557.83 FINDINGS: Tubes, catheters and devices: There is streak artifact from the pacemaker. Pulmonary arteries: There is no pulmonary embolus. Aorta: Unremarkable. No aortic aneurysm. No aortic dissection. Lungs: There is an azygos fissure. There are moderate to severe emphysematous changes. There is diffuse ground-glass opacity in the lungs with interstitial prominence that may reflect diffuse pneumonitis or CHF. Nonspecific bibasilar opacity at the costophrenic angles is present, consistent with atelectasis, edema, or pneumonia. Pleural space: There are small to moderate sized bilateral pleural effusions. Heart: Unremarkable. No cardiomegaly. No pericardial effusion. Mediastinal space: A small hiatal hernia is present. Lymph nodes: Unremarkable. No enlarged lymph nodes. Gallbladder and bile ducts: There has been a cholecystectomy. Bones/joints: There is chronic appearing anterior wedging fracture deformity of L1. No acute bony abnormality. Soft tissues: Unremarkable. CT/CT angio chest PE protcl [id number] IMPRESSION: 1. There is no pulmonary embolus. 2. There is diffuse ground-glass opacity in the lungs with interstitial prominence that may reflect diffuse pneumonitis or CHF. 3. Nonspecific bibasilar opacity at the costophrenic angles is present, consistent with atelectasis, edema, or pneumonia. There are also small to moderate sized bilateral pleural effusions. Radiation Dose CTDIVOL = (mGy): DLP = 557.83 (mGy-cm)
--- NOTE | 2019-09-20 11:10 | P.HP_ITS ---
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 She stated that she has had intermittent chest pain that is significantly worse with any type of activity or exertion. It is come to the point where she cannot even stand up from seated position without having shortness of breath, symptoms have been progressive over the past couple of months. She reported that she always thought that it was heartburn related, or related to her swallowing but she continues to have symptoms and heaviness in the base of her neck that are always worse with exertion. She stated that the pain is mostly in her neck and in the upper chest she has a sensation that feels like a heaviness. She denies any radiation of pain. Patient denies any fevers or chills. She reports chronic cough that is productive, unchanged. She denies any exposure to anyone with COVID-19. She reports that she has been to dialysis but other than that she has not been to any public place. She reports no personal history of coronary artery disease. Patient was seen and evaluated in the emergency department due to concern for chest pain and elevated troponin she was admitted for further evaluation and treatment. Review of Systems Const: Denies: fever(s) or chills Eyes: Denies: change in vision ENMT: Denies: nasal congestion Card: Reports: chest pain; Denies: palpitations or edema Resp: Reports: dyspnea and productive cough; Denies: hemoptysis GI: Denies: abdominal pain, nausea, vomiting, diarrhea, constipation, hematochezia or melena : Reports: other (Reports not making much urine any longer); Denies: dysuria or hematuria Musc: Denies: extremity pain or muscle cramps Skin/Breast: Denies: rash or new lesions Neuro: Denies: headache(s) or dizziness Psych: Denies: anxiety or depression Endo: Denies: polyuria or hot flashes Munir/Lymph: Denies: easy bruising or easy bleeding Medications/Allergies Home Medications Medication Instructions Recorded Confirmed Last Taken Type acetaminophen 325 mg capsule 650 mg PO PRN 04/15/19 09/20/19 09/19/19 History alprazolam 0.25 mg tablet 0.25 mg PO DAILY 04/15/19 09/20/19 09/19/19 History amlodipine 10 mg tablet 10 mg PO DAILY 04/15/19 09/20/19 09/19/19 History linagliptin 5 mg tablet 5 mg PO DAILY 04/15/19 09/20/19 09/19/19 History omeprazole 40 mg capsule,delayed 40 mg PO DAILY 04/15/19 09/20/19 09/19/19 History release flaxseed oil 1,000 mg PO DAILY 05/31/19 09/20/19 09/19/19 History metoprolol succinate 12.5 mg PO DAILY 05/31/19 09/20/19 09/19/19 History aspirin 325 mg tablet 325 mg PO DAILY #30 tab 06/15/19 09/20/19 09/19/19 Rx furosemide 80 mg tablet 60 mg PO BID tab 06/15/19 09/20/19 09/19/19 History calcium acetate(phosphat bind) See Rx Instructions .ROUTE .COMPLEX 06/16/19 09/20/19 09/19/19 History 1 tab cholecalciferol (vitamin D3) 50 mcg PO DAILY 06/16/19 09/20/19 09/19/19 History [Vitamin D3] lidocaine-prilocaine See Rx Instructions .ROUTE .COMPLEX 06/16/19 09/20/19 Unknown History ondansetron HCl 4 mg PO Q8H PRN 06/16/19 09/20/19 Unknown History vit A,C and Q-esuufb-kneempaf 1 tab PO DAILY 06/16/19 09/20/19 09/19/19 History [Ocuvite with Lutein] vit B,T-FR-kyju-selen-vit D3-E 1 tab PO QPM 06/16/19 09/20/19 09/19/19 History [RenaPlex-D] Allergies Allergy/AdvReac Type Severity Reaction Status Date / Time lisinopril Allergy Unknown Unknown Verified 09/20/19 08:55 morphine AdvReac Intermediate ADR-Nausea Verified 09/20/19 08:55 PFSH Acute PFSH: Medical History (Updated 09/20/19 @ 11:17 by Jacqui Russell DO) Anemia Carotid stenosis COPD (chronic obstructive pulmonary disease) 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 Diabetes Diastolic congestive heart failure End stage renal disease Essential hypertension GERD (gastroesophageal reflux disease) Intermittent atrial fibrillation Interstitial lung disease Third degree heart block Status post pacemaker placement Surgical History (Updated 09/20/19 @ 11:13 by Jacqui Russell DO) Hemodialysis access site with arteriovenous graft History of laparoscopic cholecystectomy History of tubal ligation S/P hemodialysis catheter insertion Family History (Updated 09/20/19 @ 11:14 by Jacqui Russell DO) Mother Cancer Lung cancer Father Diabetes Other CAD (coronary artery disease) Denies family history of Anesthesia complication Bleeding disorder Social History (Updated 09/20/19 @ 11:14 by Jacqui Russell DO) Smoking and tobacco status: former smoker Alcohol intake: never Substance/Drug Use: never Supplemental PFSH Information: Patient has home health services through [facility] Vitals/I&O/Wt Last Vital Signs Temp 98.0 F 09/20/19 07:56 Pulse 75 09/20/19 11:04 Resp 14 09/20/19 11:04 BP 160/67 09/20/19 11:04 Pulse Ox 95 09/20/19 11:04 Weight last 48 hrs Weight 56.245 kg Physical Exam Const: COMMON NORMALS: patient oriented x3 and alert GENERAL APPEARANCE: c ooperative ORIENTATION/CONSCIOUSNESS: Yes awake, Yes oriented to person, Yes oriented to place and Yes oriented to time HENMT: COMMON NORMALS: normocephalic and atraumatic HEAD & SCALP: normocephalic and atraumatic Eye: COMMON NORMALS: Equal, round and reactive pupils present PUPIL: Yes Equal, round and reactive pupils present Neck/C-Spine: COMMON NORMALS: supple GENERAL: Yes normal visual inspection Resp: COMMON NORMALS: normal respiratory effort and clear to auscultation bilaterally EFFORT & INSPECTION: Yes able to speak in complete sentences OTHER: Diminished breath sounds bilaterally with prolonged expiratory phase, faint end expiratory wheezing and crackles Cardio: COMMON NORMALS: regular rate and regular rhythm RATE: regular rate RHYTHM: regular rhythm OTHER: Faint systolic murmur GI: COMMON NORMALS: Soft to palpation and non-tender INSPECTION: No abdo richard distension AUSCULTATION: Yes normoactive bowel sounds PALPATION: Yes Soft to palpation : COMMON NORMALS: Yes no CVA tenderness BLADDER/KIDNEY EXAM: Yes no CVA tenderness Back/Pelvis: COMMON NORMALS: no CVA tenderness Extremity: COMMON NORMALS: no clubbing, cyanosis or edema and no calf tenderness Neuro: COMMON NORMALS: patient oriented x3, CN's II-XII intact bilaterally, moves all extremities and no focal motor deficits SENSORIUM/ORIENTATION: Yes alert, Yes oriented to person, Yes oriented to place and Yes oriented to time SPEECH: speech normal Psych: COMMON NORMALS: mental status grossly normal and cooperative Skin: COMMON NORMALS: no rashes or lesions noted GENERAL SKIN EXAM: no rashes or lesions noted Data : 09/20/19 08:47 09/20/19 08:47 CXR: I personally reviewed and interpreted this imaging study as follows: Radiologist's impression: IMPRESSION: 1. Increased pulmonary vascular congestion. 2. Interstitial pulmonary edema. A&P Assessment and plan (1) Chest pain: Upper chest pain with elevated troponin. Initial troponin of 168, last labs from May show that this has increased. Patient does have end-stage renal disease on dialysis, this could cause elevation in troponin. However patient does have significant risk factors and concerning symptoms with chest pain and shortness of breath with any minimal exertion. Will discuss further with cardiology to determine if they may consider cardiac cath Pain-free at time of exam in the ED while at rest Nitroglycerin as needed for pain, oxygen, allergic to morphine CTA chest ordered in the ED due to elevated d-dimer with chest pain and dyspnea Status: Acute (2) Essential hypertension: On amlodipine 10 mg daily, Lasix 60 mg twice daily, metoprolol 12.5 mg daily Patient is also due for dialysis today and appears mildly fluid overloaded Status: Acute (3) End stage renal disease: Followed by Dr. Patel on hemodialysis Friday, Friday, Friday ER physician discussed in consultation with nephrology for consultation. Appreciate recommendations and assistance in patients care. Will need dialysis today after CTA of the chest Status: Acute (4) Diabetes: Low-dose sliding scale insulin as needed Status: Acute (5) Anemia: No evidence of any active bleeding, hemoglobin stable at 10.6. Likely secondary to chronic disease Status: Acute (6) Carotid stenosis: Recent carotid imaging reviewed shows left with 30% stenosis, right with 60% stenosis, recommend close outpatient follow-up Status: Acute (7) History of permanent cardiac pacemaker placement: History of pacemaker placement due to third-degree heart block Status: Acute Additional A&P Information Diastolic CHF: only making minimal amount of urine. On dialysis M,W,F, and mildly fluid overloaded today. Plan for dialysis today, ECHO from 04/15 reviewed. 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
--- NOTE | 2019-09-20 12:00 | PC.NURSE ---
From ER Pt is alert, awake, oriented. 2 L/min NC on. Denies any pain at this time. Attached to telemetry. VS checked. Call light within reach.
[2019-09-20 12:02] LABS: Troponin 5 2HR Delta -6.4 ABS# (0-10)
[2019-09-20 12:03] LABS: Troponin 5 2HR 161.6 ng/L (0-10)
--- NOTE | 2019-09-20 12:25 | PC.NURSE ---
critical lab obtained from LAB troponin 161.6 Dr wagner notified
--- NOTE | 2019-09-20 12:28 | P.PN_ITS ---
Subjective Subjective: Interval history: Patient with ESRD since Oct 2018, came in with aching in her throat and increased SOB. Trop noted to be high. She was last dialyzed on Friday, uneventful. AVF looks good with good bruit and thrill. No edema. No chest pain on interview. History of PPM but no known ICM in her past. Hemodynamics looks good. Vitals/I&O/Wt Last Vital Signs Temp 98.1 F 09/20/19 12:00 Pulse 83 09/20/19 12:00 Resp 10 L 09/20/19 12:00 BP 144/64 09/20/19 12:00 Pulse Ox 100 09/20/19 12:00 Weight last 48 hrs Weight 56.245 kg Physical Exam Narrative: EXAM NARRATIVE: Seen and examined via telemed with the aid of the bedside RN Constitutional: Awake, conversant, jovial HEENT: Wet mucosa, no jvp, non icteric Lungs: Bilaterally scattered rales without discernible wheeze CVS: S1 S2, no murmurs Abdo: Soft, BS ok Ext 4: Minimal edema, peripheral perfusion with no cyanosis Neurological: Grossly non-focal Data : 09/20/19 08:47 09/20/19 08:47 A&P Additional A&P Information 1. ESRD - for HD today; 3K, UF 2L - will eval tomorrow but plan on dialysis on Friday 2. NSTEMI - mgmt per cardiology. Possible stress vs LHC - no need to dialyze off angiographic dye from my perspective 3. Hemodynamics appear stable 4. Aneima of ESRD at goal 5. Chronic ESRD issues to be addressed in OP clinic including titration of binders/ mgmt of sec hyperPTHism etc. 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
[2019-09-20 12:53] LABS: Glucose Point of Care 113 mg/dL (70-110)
[2019-09-20] MEDS: ALPRAZolam 0.25 mg Tablet PO (13:12)
[2019-09-20] MEDS: heparin 5,000 unit/mL INJ 1 mL 5000 UNIT SUBCUT ×2 (13:14→23:36)
[2019-09-20 13:23] LABS: INR 0.88 (0.8-1.2)
[2019-09-20 13:33] LABS: Magnesium 2.2 mg/dL (1.7-2.3); NT Pro B Type Natriuretic Pept 31845 pg/mL (0-450); Phosphorus 3.9 mg/dL (2.5-4.5); Thyroid Stimulating Hormone 3.09 uIU/mL (0.27-4.20)
--- NOTE | 2019-09-20 13:38 | PC.RESP ---
Pt still in er, unable to do ekg order-not notified not done.
[2019-09-20] MEDS: HYDROcodone-acetaminophen 5-325 mg Tablet 1 TAB PO (14:03)
--- NOTE | 2019-09-20 14:06 | PC.NURSE ---
Ushered via wheelchair to Dialysis room portable tele box and oxygen on at 2 l/min for pt comfort.
--- NOTE | 2019-09-20 14:10 | ECG_ITS ---
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 Measurements Intervals [place] Rate: 86 P: 50 WV: 211 QRS: -46 QRSD: 158 T: 81 QT: 413 QTc: 495 Interpretive Statements A sense V paced rhythm Compared to ECG 09/20/2019 08:32:08 No significant changes Electronically Signed On 09-20-2019 21:38:29 CDT by Mireya Reyes M.D. [id number]
[2019-09-20 15:44] LABS: Troponin 5 6HR 184.8 ng/L (0-10); Troponin 5 6HR Delta 16.8 ng/L (0-12)
[2019-09-20] MEDS: metoprolol succinate ER (24 HR) 25 mg Tablet 12.5 MG PO (18:27)
[2019-09-20] MEDS: aspirin 325 mg Tablet PO (18:27)
[2019-09-20] MEDS: FUROsemide 40 mg Tablet 60 MG PO (18:28)
[2019-09-20 18:29] LABS: Glucose Point of Care 93 mg/dL (70-110)
[2019-09-20] MEDS: amlodipine 10 mg Tablet PO (18:30)
--- NOTE | 2019-09-20 20:30 | PM.CONSULT ---
Providers/Reason For Consult Consulting Physican/Specialty*: Cardiology Reason for Consult*: Acute coronary syndrome Attending Physician: Jacqui Russell DO Primary Care Provider: Magdiel Amador MD History of Present Illness History of Present Illness Galina Saba is a 84 year old female past medical history significant for history of hypertension, history of tobacco abuse quit many years ago, history of end-stage renal disease on dialysis, history of permanent pacemaker placement for heart block, anemia due to chronic kidney disease mostly hemoglobin stays around 10 was admitted with worsening of shortness of breath chest pain radiating to neck and left arm. According to the patient for the past 5 to 6 months she has been struggling with worsening of shortness of breath and nearly 6 to 8 weeks ago she started noticing pain in the neck region radiating to jaw initially at mild to moderate exertion and now sometimes at rest. She has been awakened many times from the sleep with the pain. She thought it was her arthritis. She also described left arm and chest heaviness with aching pain upon mild exertion almost on daily basis which has been worsening with increase in frequency and duration. Yesterday chest pain radiating to neck and jaw did not get relief she decided to come to the ER. Nitroglycerin did relieve and eased the pain. Cardiac markers were abnormal with troponin T at 168 may suggestive of acute coronary syndrome. It is the reason we have been asked to come and see her. Twelve-lead EKG is not helpful due to paced rhythm. Currently she is chest pain-free and postdialysis. She denies PND orthopnea presyncope or syncope. According to the patient she has functionally deteriorated because of chest pain and shortness of breath. Meds/Allergies Home Medications and Allergies Home Medications Medication Instructions Recorded Confirmed Last Taken Type acetaminophen 325 mg capsule 650 mg PO PRN 04/15/19 09/20/19 09/19/19 History alprazolam 0.25 mg tablet 0.25 mg PO DAILY 04/15/19 09/20/19 09/19/19 History amlodipine 10 mg tablet 10 mg PO DAILY 04/15/19 09/20/19 09/19/19 History linagliptin 5 mg tablet 5 mg PO DAILY 04/15/19 09/20/19 09/19/19 History omeprazole 40 mg capsule,delayed 40 mg PO DAILY 04/15/19 09/20/19 09/19/19 History release flaxseed oil 1,000 mg PO DAILY 05/31/19 09/20/19 09/19/19 History metoprolol succinate 12.5 mg PO DAILY 05/31/19 09/20/19 09/19/19 History aspirin 325 mg tablet 325 mg PO DAILY #30 tab 06/15/19 09/20/19 09/19/19 Rx furosemide 80 mg tablet 60 mg PO BID tab 06/15/19 09/20/19 09/19/19 History calcium acetate(phosphat bind) See Rx Instructions .ROUTE .COMPLEX 06/16/19 09/20/19 09/19/19 History 1 tab cholecalciferol (vitamin D3) 50 mcg PO DAILY 06/16/19 09/20/19 09/19/19 History [Vitamin D3] lidocaine-prilocaine See Rx Instructions .ROUTE .COMPLEX 06/16/19 09/20/19 Unknown History ondansetron HCl 4 mg PO Q8H PRN 06/16/19 09/20/19 Unknown History vit A,C and N-hcoojj-iiqlazwe 1 tab PO DAILY 06/16/19 09/20/19 09/19/19 History [Ocuvite with Lutein] vit B,E-ZE-aeys-selen-vit D3-E 1 tab PO QPM 06/16/19 09/20/19 09/19/19 History [RenaPlex-D] Allergies Allergy/AdvReac Type Severity Reaction Status Date / Time lisinopril Allergy Unknown Unknown Verified 09/20/19 08:55 morphine AdvReac Intermediate ADR-Nausea Verified 09/20/19 08:55 Current Medications Current Medications Generic Name Dose Route Start Last Admin Trade Name Freq PRN Reason Stop Dose Admin Hydrocodone Bitart/Acetaminophen 1 tab 09/20/19 11:47 09/20/19 14:03 Rosenhayn 5-325 Mg PO 1 tab Q4H PRN Administration MODERATE TO SEVERE PAIN Amlodipine Besylate 10 mg 09/20/19 12:30 09/20/19 18:30 Norvasc PO 10 mg DAILY ROSIBEL Administration Aspirin 325 mg 09/20/19 12:30 09/20/19 18:27 Aspirin PO 325 mg DAILY ROSIBEL Administration Furosemide 60 mg 09/20/19 16:00 09/20/19 18:28 Lasix PO 60 mg BID@08,16 ROSIBEL Administration Heparin Sodium (Beef Lung) 5,000 unit 09/20/19 11:47 09/20/19 13:14 Heparin SUBCUT 5,000 unit Q12H ROSIBEL Administration Insulin Aspart 0 unit 09/20/19 12:00 09/20/19 18:31 Novolog SUBCUT Not Given [facility] Protocol Metoprolol Succinate 12.5 mg 09/20/19 12:30 09/20/19 18:27 Toprol Xl PO 12.5 mg DAILY ROSIBEL Administration PFSH Acute PFSH: Medical History Anemia Carotid stenosis COPD (chronic obstructive pulmonary disease) 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 Diabetes Diastolic congestive heart failure End stage renal disease Essential hypertension GERD (gastroesophageal reflux disease) Intermittent atrial fibrillation Interstitial lung disease Third degree heart block Status post pacemaker placement Surgical History Hemodialysis access site with arteriovenous graft History of laparoscopic cholecystectomy History of tubal ligation S/P hemodialysis catheter insertion Family History Mother Cancer Lung cancer Father Diabetes Other CAD (coronary artery disease) Denies family history of Anesthesia complication Bleeding disorder Social History Smoking and tobacco status: former smoker Alcohol intake: never Substance/Drug Use: never Vitals/I&O/Wt Last Vital Signs Temp 98.6 F 09/20/19 19:25 Pulse 82 09/20/19 19:25 Resp 20 H 09/20/19 19:25 BP 144/64 09/20/19 19:25 Pulse Ox 98 09/20/19 19:25 Weight last 48 hrs Weight 124 lb Physical Exam Narrative: EXAM NARRATIVE: GENERAL: Patient is alert, awake and oriented x3. NECK: No jugular vein distension. HEENT: No cyanosis. No icterus. No pallor. HEART: Regular S1 and S2. No murmur, rub or gallop. LUNGS: Clear to auscultate bilaterally. ABDOMEN: Soft, nontender and nondistended. Positive bowel sounds. No guarding, rebound or tenderness. CENTRAL NERVOUS SYSTEM: Grossly nonfocal. EXTREMITIES: Lower extremities without edema bilaterally. A&P Assessment and plan (1) Non-STEMI (non-ST elevated myocardial infarction): Increase in cardiac markers with worsening of chest pain suggestive of non-ST elevation SD/acute coronary syndrome. Continue beta-bill will add isosorbide mononitrate. She will also be loaded with Plavix 300 mg. Further plan will advise as per progress the patient Status: Acute (2) Chest pain: Most likely secondary to angina and cardiac. We will treated as above Status: Acute Qualifiers: Chest pain type: precordial pain Qualified Code(s): R07.2 - Precordial pain (3) History of permanent cardiac pacemaker placement: Patient has pacemaker working in good condition. Status: Acute (4) Essential hypertension: Optimally controlled continue medicine Status: Acute (5) End stage renal disease: On hemodialysis. Continue Status: Acute Consult Attestations Medical Necessity Statement: I am expecting her stay to cross more than 2 midnights. Coding Level of Care Code New Pt Acute Mounter Automatic for Elizabeth Lewis Patient Type New History Detailed Exam Detailed Medical Decision Making Moderate Complexity Diagnoses Non-STEMI (non-ST elevated myocardial infarction) I21.4 Chest pain R07.2 Chest pain type: precordial pain History of permanent cardiac pacemaker placement Z95.0 Essential hypertension I10 End stage renal disease N18.6
[2019-09-20 20:46] LABS: Glucose Point of Care 187 mg/dL (70-110)
[2019-09-20] MEDS: iodixanol 320 mg/mL 100mL Btl IV (20:48)
[2019-09-20] MEDS: clopidogrel 300 mg Tablet PO (22:07)
--- NOTE | 2019-09-20 23:40 | PC.NURSE ---
EDUCATED PT ON CATH TOMORROW. PT IS RESTING IN BED. DENIES PAIN AT THIS TIME. WILL CONTINUE TO MONITOR.
[2019-09-21] VITALS (30 sets, daily range): BP systolic 121–190; BP diastolic 45–82; PULSE 62–102; RESP 5–32; TEMP 36.9–37.6; O2SAT 92–99
[2019-09-21 04:29] LABS: Basophils # 0.1 10^3/uL (0.0-0.1); Basophils % 0.8 %; Eosinophils # 0.1 10^3/uL (0.0-0.8); Eosinophils % 1.4 %; Hematocrit 29.1 % (37.0-47.0); Lymphocytes # 1.3 10^3/uL (0.8-4.8); Lymphocytes % 20.9 %; Mean Corpuscular HGB Conc 30.9 g/dL (30.0-36.0); Mean Corpuscular Hemoglobin 30.5 pg (28.0-34.0); Mean Corpuscular Volume 98.6 fL (81-99); Monocytes # 0.7 10^3/uL (0.2-0.9); Monocytes % 10.9 %; Neutrophils # 4.09 10^3/uL (1.8-7.7); Neutrophils % 65.7 %; Nucleated Red Blood Cells % 0 %; Platelet Count 198 10^3/cmm (130-400); Red Blood Count 2.95 10^6/uL (4.1-5.3); Red Cell Distribution Width 12.9 % (12.1-15.1); White Blood Count 6.2 10^3/uL (4.0-10.0)
[2019-09-21 05:02] LABS: Alanine Aminotransferase 10 U/L (0-33); Albumin Level 3.3 g/dL (3.5-5.2); Alkaline Phosphatase 60 IU/L (35-105); Anion Gap 16.1 (5-19); Aspartate Amino Transferase 24 U/L (0-32); Blood Urea Nitrogen 18 mg/dL (8-23); Calcium 8.8 mg/dL (8.5-10.5); Carbon Dioxide 27 mmol/L (22-29); Chloride 93 mmol/L (98-107); Globulin 2.6 g/dL (1.3-4.6); Glucose 89 mg/dL (65-115); Osmolality Calculated 270 mOsm/kg (285-295); Potassium 4.1 mmol/L (3.5-5.1); Sodium 132 mmol/L (136-145); Total Bilirubin 0.4 mg/dL (0.15-1.2); Total Protein 5.9 g/dL (6.6-8.7)
[2019-09-21 05:03] LABS: Chol HDL Ratio 1.81 mg/dL (0.0-4.40); Cholesterol 143 mg/dL (0-200); HDL Cholesterol 79 mg/dL (60-100); LDL Cholesterol Calculated 43 mg/dL (50-129); LDL HDL Ratio 0.54 RATIO (0.00-3.22); Triglycerides 103 mg/dL (0-150)
[2019-09-21] MEDS: diphenhydrAMINE 50 mg Capsule PO (06:07)
[2019-09-21] MEDS: sodium chloride 0.9% 1,000 ML 50 ML IV (06:07)
[2019-09-21 06:41] LABS: Glucose Point of Care 93 mg/dL (70-110)
--- NOTE | 2019-09-21 06:44 | PC.NURSE ---
PT IS EAGER TO HAVE PROCEDURE DONE. PT HAS SIGNED CONSENT. PT DENIES HAVING ANY QUESTIONS ABOUT PROCEDURE. 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 WILL GIVE REPORT TO ON COMING NURSE. WILL CONTINUE TO MONITOR.
--- NOTE | 2019-09-21 08:18 | P.PN_ITS ---
Subjective Subjective: Interval history: Patient resting in bed this morning at time of exam. She reported that she did not have any further chest pain or shortness of breath overnight, reports that oxygen has helped. She also reports that she has not exerted herself since admission. Discussed with her plan for cardiac cath today, she verbalized understanding and agreed with plan. Vitals/I&O/Wt Last Vital Signs Temp 98.6 F 09/21/19 08:12 Pulse 70 09/21/19 08:12 Resp 24 H 09/21/19 08:12 BP 121/48 09/21/19 08:12 Pulse Ox 95 09/21/19 08:12 09/20/19 09/21/19 09/21/19 22:59 06:59 14:59 Intake Total 220 / 220 Balance 220 / 220 Weight last 48 hrs Weight 55.792 kg Weight 56.245 kg Physical Exam Const: COMMON NORMALS: patient oriented x3 and alert GENERAL APPEARANCE: cooperative ORIENTATION/CONSCIOUSNESS: Yes awake, Yes oriented to person, Yes oriented to place and Yes oriented to time HENMT: COMMON NORMALS: normocephalic and atraumatic HEAD & SCALP: normocephalic and atraumatic Neck/C-Spine: COMMON NORMALS: supple GENERAL: Yes normal visual inspection Resp: COMMON NORMALS: normal respiratory effort and clear to auscultation bilaterally EFFORT & INSPECTION: Yes able to speak in complete sentences AUSCULTATION: clear to auscultation bilaterally OTHER: Faint expiratory wheezing bilaterally, crackles resolved Cardio: COMMON NORMALS: regular rate and regular rhythm RATE: regular rate RHYTHM: regular rhythm OTHER: Faint systolic murmur GI: INSPECTION: No abdominal distension Extremity: COMMON NORMALS: no clubbing, cyanosis or edema and no calf tenderness Neuro: COMMON NORMALS: patient oriented x3, CN's II-XII intact bilaterally, moves all extremities and no focal motor deficits SENSORIUM/ORIENTATION: Yes alert, Yes oriented to person, Yes oriented to place and Yes oriented to time SPEECH: speech normal Psych: COMMON NORMALS: mental status grossly normal and cooperative Skin: COMMON NORMALS: no rashes or lesions noted GENERAL SKIN EXAM: no rashes or lesions noted Data : 09/21/19 03:28 09/21/19 03:28 A&P Assessment and plan (1) Non-STEMI (non-ST elevated myocardial infarction): Non-ST elevation CA Cardiology, Dr. Giordano consulted. Appreciate recommendations and assistance in patient's care Continue on metoprolol, aspirin, loading dose of Plavix, on prophylactic dose heparin Plan for cardiac cath today Status: Acute (2) Essential hypertension: On amlodipine 10 mg daily, Lasix 60 mg twice daily, metoprolol 12.5 mg daily Status: Acute (3) End stage renal disease: Followed by Dr. Patel on hemodialysis Friday, Friday, Friday Nephrology, Dr. Maceil consulted due to patient being on HD on ,,. Appreciate consultation Status: Acute (4) Diabetes: Low-dose sliding scale insulin as needed Status: Acute (5) Anemia: No evidence of any active bleeding, anemia of chronic disease Hemoglobin 9 today Status: Acute (6) Carotid stenosis: Recent carotid imaging reviewed shows left with 30% stenosis, right with 60% stenosis, recommend close outpatient follow-up Status: Acute (7) History of permanent cardiac pacemaker placement: History of pacemaker placement due to third-degree heart block Status: Acute Additional A&P Information Diastolic CHF: With mild exacerbation on admission, now improved. Plan for cardiac cath today. Continue with dialysis per cardiology and nephrology recommendations Diet: Carbohydrate consistent, renal dialysis diet DVT prophylaxis: Heparin CODE STATUS: DNR/DNI Attestations Medical Necessity Statement*: Patient requires further hospitalization due to non-ST elevation CA. 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
--- NOTE | 2019-09-21 08:36 | PC.OT ---
OT EVALUATION ATTEMPTED. PATIENT IS IN PROCESS OF GOING TO [facility] FOR PROCEDURE. WILL HOLD AND CHECK ON PATIENT IN P.M.
--- NOTE | 2019-09-21 08:38 | PC.NURSE ---
All 0900 meds placed on hold as pre-op for heart laborer general. Patient declined am dose of furosemide s she is going to laborer general within next 30 minutes.
--- NOTE | 2019-09-21 09:26 | XACV_ITS ---
Exam Room: [facility] Ht: 155 cm Wt: 56 kg BSA: 1.56 m2 Gender: Female : 1935 Any Known Allergies: Other Exam Priority: Routine Procedure(s): Procedure Description: Diagnostic procedure Procedure Description: PCI procedure Procedure Description: Drug Eluting Coronary Stent Procedure Description: PTCA Procedure Description: Coronary Thrombectomy Procedure Description: Coronary Angiography Diagnostic Cath Status: Elective Diagnostic Findings LM has 0% stenosis. CX has 0% stenosis. dLAD: Moderate 50% stenosis, TALIB: 3 flow. 1st Diag: Moderate 50% stenosis, TALIB: 3 flow. 2nd Diag: Moderate 50% stenosis, TALIB: 3 flow. Proximal Right Coronary Artery: Severe 90% stenosis, TALIB: 2 flow. Mid Right Coronary Artery: Severe 80% stenosis, TALIB: 2 flow. Coronary angiography shows right dominance. PCI Status: Elective PCI Indication: NSTE - ACS Interventional Findings Proximal Right Coronary Artery: 90% stenosis treated with AB TREK 2.75X12 RX BALLOON, MDT R LAVERNE 3.0X15 CHE, and MDT NC EUPHORA RX [id number] BALLOON. 0% residual stenosis, TALIB: 3 flow. Mid Right Coronary Artery: 80% stenosis treated with MDT R LAVERNE 2.75X18 CHE and MDT NC EUPHORA RX [id number] BALLOON. 0% residual stenosis, TALIB: 3 flow. Conclusions There is severe coronary artery disease with two vessel disease. Proximal Right Coronary Artery was treated with two Balloon and Drug Eluting Stent. Mid Right Coronary Artery was treated with Drug Eluting Stent and Balloon. Recommendations 1-Return to inpatient for close monitoring and routine cath care 2-Risk factor modification for secondary prevention 3-Statin and aspirin 81 mg life--long, if tolerated 4-Patient was pre-loaded with 300 mg of Plavix, continue Plavix 75mg p.o. daily for at least one year. We will assess at the end of one year again to continue if further or not 5-Continue optimal medical management 6-Follow up with Dr. Henderson in four weeks and your primary care in 10 days . Diagnostic RX Recommendation: PCI w/o planned CABG Pressures Phase:Rest AO : 153 mmHg / 58 mmHg ( 92 mmHg ) @ 5:17:00 AM Clinical Evaluation EBL: 5mL-10mL Procedural Details Procedure Consent Obtained. Pre-Procedure Time Out. Identified patient by full name and date of as verbalized by the patient/guarantor. Does the consent match the physician's order: Yes. Accurate & Complete Informed Consent: Yes. Inpatient/Outpatient History & Physical on Chart: Yes. If H&P is completed, is and addenduem needed: No; If yes, is the addendum complete: N/A. Visualize and Verify Site with Patient/Guarantor: N/A. Relevant Radiology Images available: Yes. Pre-op teaching completed and patient verbalized understanding. The risks, benefits, and alternatives of sedation and/or procedure were discussed by physician. The patient agrees to continue. Procedure started. Correct patient, site and procedure confirmed by cath team. Current diagnosis: Chest Pain. PERRLA. Strong, equal hand bumper and painter bilaterally. Lungs clear x 5 lobes. IV Site on Arrival: 18 gauge in the left anticubital. IV Fluids: 0.9% NaCl at KVO. 0 mL infused prior to finishing lab technician. Pre Procedural Pulses: bilateral dorsalis pedis was 2+. Pre Procedural Pulses: bilateral posterior tibial was 2+. Pre Procedural Pulses: bilateral radial was 3+. Oxygen started at 2liters/min via nasal canula. bilateral groins was prepped with chloroprep then draped in the usual sterile fashion. right radial was prepped with chloroprep then draped in the usual sterile fashion. Physician notified. Baseline sample Acquired. HR: 74 BPM. Physician arrived. Physician scrubbed in. Equipment: 6F - Radial. RiverOne Manifold Kit Model BT 2000. Cardiac Cath Pack. Heparinized Saline (2 units/mL), 1000 mL bag. Immediate Pre-Procedure Time Out. Correct Patient: Yes; Correct Procedure: Yes; Correct Site: Yes; Correct Patient Position: Yes; Correct Supplies: Yes; Dried Flammable Prep: Yes; Blood Products Available: No;. Lidocaine 1% infiltrated to the right radial. Arterial access obtained. A 5 telugu TIG catheter in over wire. Multiple views taken of left coronary artery. Catheter redirected to the RCA. Multiple views taken of right coronary artery. Catheter out. 6 telugu JR 4 guide catheter was inserted over the wire. BMW guidewire was advanced through the guide catheter to lesion in the prox RCA. Inflation number : 1 A AB TREK 2.75X12 RX BALLOON was prepped and advanced across the Prox RCA , then inflated to 8 MASON for 0:15 seconds. Balloon out. Inflation Number : 2 A MDT R LAVERNE 3.0X15 CHE -Lot Number# [id number] was prepped and advanced across the Prox RCA. The stent was deployed at 12 MASON for 0:22 seconds. Stent expiration date: 03-30-2021. Stent balloon out over wire. Inflation Number : 1 A MDT R LAVERNE 2.75X18 CHE -Lot Number# [id number] was prepped and advanced across the Mid RCA. The stent was deployed at 12 MASON for 0:23 seconds. Stent expiration date: 04/26/2021. Stent balloon and wire out. Inflation number : 2 A MDT NC EUPHORA RX [id number] BALLOON was prepped and advanced across the Mid RCA , then inflated to 16 MASON for 0:13 seconds. Inflation number: 3 The MDT NC EUPHORA RX [id number] BALLOON was reinflated across the Prox RCA, to 16 MASON for 0:17 seconds. Balloon out. Wire out. Guide catheter out. ACT drawn. Results 210 seconds. Therapeutic limits - pre-heparin administration 90-150 seconds and monitoring heparin during a vascular procedure >250 seconds. TR band placed. Hemostasis obtained. A TR Band was successful obtaining hemostatsis at the Right Radial artery insertion site. Post Procedure: Pulses reassessed and unchanged. PERRLA. Strong, equal hand bumper and painter bilaterally. No VTE prophylaxis required. Medication's Wasted: Lidocaine 1% = 18 mL. Medication's Wasted: Heparin = 1000 units. Medication's Wasted: Nitro = 49.8 mg. Medication's Wasted: Other = Fentanyl 50mcg. Total IV fluids: 50 mL. Contrast type used: Visipaque 320 mgI/mL, 500 mL bottle. PCI Indication: NSTE. Vital chart was stopped. Post-op diagnosis: CAD. Complications: None. Estimated blood loss: 5mL-10mL. [facility] Clinical Fraility Score: 4: Vulnerable. 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 Chest Pain Symptom Assessment: Typical Angina Symptoms. Cardiovascular Instability: No. Procedure completed. Patient transferred by wheelchair to ICU. Site: Right Radial artery Sheath Size: 6 Fr Hemostasis Method: TR Band Hemostasis Success: Successful Procedure Medications Start: 9:56 AM Stop: 9:56 AM Medication: Versed 1 mg and Fentanyl 25 mcg Amount: 1 Route: I.V. Start: 10:07 AM Stop: 10:07 AM Medication: Heparin Amount: 5000 units Route: I.V. Start: 10:11 AM Stop: 10:11 AM Medication: Versed Amount: 1 mg Route: I.V. Start: 10:15 AM Stop: 10:15 AM Medication: Nitrogylcerin Amount: 200 mcg Route: I.A. Start: 10:33 AM Stop: 10:33 AM Medication: Fentanyl Amount: 25 mcg Route: I.V. I, the attending physician, have reviewed and verified all procedure medications. Yes, all medications given per verbal order History/Risk Factors Hypertension: Yes Dyslipidemia: No Peripheral Arterial Disease (PAD): No Myocardial Infarction (ND): No Obesity: No Renal Disease: Yes Tobacco Use: Former Dialysis: Current Prior Interventions PCI: No CABG: No Valve Surgery: No Report Signatures Finalized by:Carrie Henderson MD on 10/03/2019 5:21:08 PM
--- NOTE | 2019-09-21 09:30 | PC.NURSE ---
Patient to cardiac cath technician.
--- NOTE | 2019-09-21 11:01 | PC.CHAP ---
Pastoral Care Encounter/Spiritual Assessment Type of Contact [] Declined chief development officer visit [] Patient/Family/Request visit [] Outpatient visit [] Follow-up visit [] Physician referral [] Code/Alert [x] Routine visit [] Staff referral [] Actively dying [] Patient sleeping [] Family support [] [] Out of room [] Palliative care [] [x] Receiving care in room [] Pre-surgical visit [] Trauma [] Long length of stay [] ICU visit [] Other: Relational/Emotional Strength [x] Patient feels connected with others/family/visitors/staff [] Distress [] Loneliness/isolation [] Abandonment Spirituality of Patient [x] Person of Fannie [] Attends Buddhist of their Fannie [x] Believes in Prayer [] Reads Bible or Anabaptism materials [] There are Spiritual issues to be addressed Land Use Planner Interventions [x] Prayer [x] Active listening [x] Non-anxious presence [x] Spiritual/emotional support [] Crisis/trauma care [x] Spiritual counseling [] Bereavement support [] Provided bereavement packet [] Provided Bible/devotional materials [] Provided toy/stuffed animal, coloring book to patient or family member [] Provided Communion [] Anointing/[place] [] Salvation [x] Completed spiritual assessment [] Other: Impact on Illness or Injury [] Angry [] Fearful [] Anxious [] Often cries [] Exhaustion [] Unable to work [] Unable to attend tenriism [] Unable to walk/stand [] Unable to read [] Unable to drive [] Unable to eat/drink [] Unable to sleep [] Unable to be with family [] Patient intubated [] Other: Summary Heart, precardic light strock, going home, no new meds, will have to make some adjustments wants to back to work, waiting to see what the docotor has to say Time spent with patient 10 mins
--- NOTE | 2019-09-21 11:02 | PC.NURSE ---
Patient arrived to CSU from labor relations manager at 1053 settled in bed and hooked up to telemetry. Patient has a TR band in place on right radial artery with 19mL's of air. No hematoma present. IV present in Right AC. Procedure performed LH with stenting to med and prox RCA.
--- NOTE | 2019-09-21 11:29 | PM.PN ---
Subjective Subjective: Interval history: Mrs Saba just returned from the laboratory veterinarian. Feels well. No chest pain, no SOB, no palpitations, no edema and no other volume issues. Passing urine comfortably. No uremic Sx. Vitals/I&O/Wt Last Vital Signs Temp 98.6 F 09/21/19 08:12 Pulse 70 09/21/19 11:00 Resp 14 09/21/19 11:00 BP 160/50 09/21/19 11:00 Pulse Ox 99 09/21/19 11:00 09/20/19 09/21/19 09/21/19 22:59 06:59 14:59 Intake Total 220 / 220 Balance 220 / 220 Weight last 48 hrs Weight 55.792 kg Weight 56.245 kg Physical Exam Narrative: EXAM NARRATIVE: Seen and examined via telemed with the aid of the bedside RN Constitutional: Awake, conversant, jovial HEENT: Wet mucosa, no jvp, non icteric Lungs: Bilaterally scattered rales without discernible wheeze CVS: S1 S2, no murmurs Abdo: Soft, BS ok Ext 4: Minimal edema, peripheral perfusion with no cyanosis Neurological: Grossly non-focal Data : 09/21/19 03:28 09/21/19 03:28 A&P Additional A&P Information 1. ESRD - for HD tomorrow; 3K, UF 2L - cont MWF schedule 2. NSTEMI - ms/p C today with stents placed - ASA, B blockers 3. Hemodynamics appear stable 4. 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 Chronic ESRD issues to be addressed in OP clinic including titration of binders/ mgmt of sec hyperPTHism etc. - cont home meds ie PhosLo Attestations Medical Necessity Statement*: mgmt of ESRD Coding Level of Care Code Acute Hospice Community Liaison for Chg Joshua
[2019-09-21 11:31] LABS: Glucose Point of Care 79 mg/dL (70-110)
--- NOTE | 2019-09-21 11:51 | PC.OT ---
OT EVALUATION HELD UNTIL TOMORROW DUE TO CATH PROCEDURE THIS MORNING. WILL ATTEMPT AGAIN TOMORROW.
[2019-09-21] MEDS: clopidogrel 75 mg Tablet PO (12:02)
--- NOTE | 2019-09-21 12:05 | PC.NURSE ---
Rishi placed to Dr. Henderson regarding dose of heparin du at noon. Received order to hold 12 noon dose of heparin.
--- NOTE | 2019-09-21 13:30 | PC.NURSE ---
At 1230 began removing air from TR band on right wrist at 3-4 ml every 15 minutes. No evidence of bleeing from puncture site. At 1345 removed TR band and cleaned site with alcohol. Drsg applied.
[2019-09-21] MEDS: FUROsemide 40 mg Tablet 60 MG PO (15:24)
[2019-09-21 16:47] LABS: Glucose Point of Care 104 mg/dL (70-110)
[2019-09-21] MEDS: calcium acetate 667 mg Capsule PO (17:38)
--- NOTE | 2019-09-21 18:07 | P.PN_ITS ---
Subjective Subjective: Interval history: Status post drug-eluting stent to proximal and mid RCA for significant 90 and 80% lesion. Feeling better. Vitals/I&O/Wt Last Vital Signs Temp 98.7 F 09/21/19 17:00 Pulse 82 09/21/19 17:39 Resp 24 H 09/21/19 17:39 BP 157/67 09/21/19 17:39 Pulse Ox 94 09/21/19 13:15 09/21/19 09/21/19 09/21/19 06:59 14:59 22:59 Intake Total 220 / 220 240 / 240 220 / 460 Balance 220 / 220 240 / 240 220 / 460 Weight last 48 hrs Weight 123 lb Weight 124 lb Physical Exam Narrative: EXAM NARRATIVE: GENERAL: Patient is alert, awake and oriented x3. NECK: No jugular vein distension. HEENT: No cyanosis. No icterus. No pallor. HEART: Regular S1 and S2. No murmur, rub or gallop. LUNGS: Clear to auscultate bilaterally. ABDOMEN: Soft, nontender and nondistended. Positive bowel sounds. No guarding, rebound or tenderness. CENTRAL NERVOUS SYSTEM: Grossly nonfocal. EXTREMITIES: Lower extremities without edema bilaterally. Data : 09/21/19 03:28 09/21/19 03:28 A&P Assessment and plan (1) Non-STEMI (non-ST elevated myocardial infarction): Status post drug-eluting stent to proximal to mid RCA for significant 90 and 80% stenosis. Patient also has moderate disease in LAD and diagonal 1 and 2 thought to be treated medically. Suggest stress test and 6 to 8 weeks on optimal medical regimen. Continue aspirin statin Plavix beta-bill. Status: Acute (2) Essential hypertension: Well-controlled continue medicine Status: Acute (3) Anemia: Anemia of chronic kidney disease. Follow-up with primary care and nephrology Status: Acute Qualifiers: Anemia type: unspecified type Qualified Code(s): D64.9 - Anemia, unspecified (4) Chest pain: Most likely secondary to angina and cardiac. Status post drug-eluting stent as above. Status: Acute Qualifiers: Chest pain type: precordial pain Qualified Code(s): R07.2 - Precordial pain (5) History of permanent cardiac pacemaker placement: Patient has pacemaker working in good condition. Status: Acute (6) End stage renal disease: On hemodialysis. Continue as per nephrology Status: Acute Attestations Medical Necessity Statement*: Patient require continuation hospitalization post PCI as above. Coding Level of Care Code Established Pt Acute [place] Maker Hand for Chg Fwd Patient Type Established History Expanded Problem Focused Exam Expanded Problem Focused Medical Decision Making Moderate Complexity Diagnoses Non-STEMI (non-ST elevated myocardial infarction) I21.4 Essential hypertension I10 Anemia D64.9 Anemia type: unspecified type Chest pain R07.2 Chest pain type: precordial pain History of permanent cardiac pacemaker placement Z95.0 End stage renal disease N18.6
[2019-09-21] MEDS: ipratropium-albuterol 3 mL Neb INHALATION (19:27)
--- NOTE | 2019-09-21 19:31 | PC.NURSE ---
Rounding: Patient resting in bed doing a breathing treatment. Patient denies any needs at this time. Patient is alert and oriented will continue to monitor.
[2019-09-21 20:19] LABS: Glucose Point of Care 143 mg/dL (70-110)
[2019-09-21] MEDS: ALPRAZolam 0.25 mg Tablet PO (21:01)
[2019-09-21] MEDS: heparin 5,000 unit/mL INJ 1 mL 5000 UNIT SUBCUT (23:05)
[2019-09-22] VITALS: BP 144/52; PULSE 79; RESP 18; TEMP 36.7; O2SAT 95
[2019-09-22 03:50] VITALS: BP 140/53; PULSE 78; RESP 14; TEMP 36.7; O2SAT 95
[2019-09-22 04:26] LABS: Basophils % 0.4 %; Eosinophils # 0.1 10^3/uL (0.0-0.8); Eosinophils % 1.3 %; Hematocrit 27.2 % (37.0-47.0); Hemoglobin 8.5 g/dL (11.5-15.3); Lymphocytes # 1.1 10^3/uL (0.8-4.8); Lymphocytes % 15.1 %; Mean Corpuscular HGB Conc 31.3 g/dL (30.0-36.0); Mean Corpuscular Hemoglobin 30.6 pg (28.0-34.0); Mean Corpuscular Volume 97.8 fL (81-99); Mean Platelet Volume 11.2 fL (7.4-10.4); Monocytes # 0.9 10^3/uL (0.2-0.9); Monocytes % 11.9 %; Neutrophils # 5.35 10^3/uL (1.8-7.7); Neutrophils % 70.9 %; Nucleated Red Blood Cells % 0 %; Platelet Count 208 10^3/cmm (130-400); Red Blood Count 2.78 10^6/uL (4.1-5.3); Red Cell Distribution Width 12.8 % (12.1-15.1); White Blood Count 7.6 10^3/uL (4.0-10.0)
[2019-09-22 04:42] LABS: Blood Urea Nitrogen 33 mg/dL (8-23); Calcium 8.7 mg/dL (8.5-10.5); Carbon Dioxide 26 mmol/L (22-29); Chloride 96 mmol/L (98-107); Glucose 99 mg/dL (65-115); Osmolality Calculated 275 mOsm/kg (285-295); Sodium 134 mmol/L (136-145)
[2019-09-22 06:14] LABS: Glucose Point of Care 122 mg/dL (70-110)
[2019-09-22] MEDS: pantoprazole DR 40 mg Tablet PO (08:11)
[2019-09-22] MEDS: cholecalciferol (vitamin D3) 1,000 unit Tablet 2000 UNIT PO (08:11)
[2019-09-22] MEDS: calcium acetate 667 mg Capsule PO ×2 (08:12→12:32)
--- NOTE | 2019-09-22 10:06 | PC.CHAP ---
Pastoral Care Encounter/Spiritual Assessment Type of Contact [] Declined alteration tailor visit [] Patient/Family/Request visit [] Outpatient visit [] Follow-up visit [] Physician referral [] Code/Alert [x] Routine visit [] Staff referral [] Actively dying [] Patient sleeping [] Family support [] [x] Out of room [] Palliative care [] [] Receiving care in room [] Pre-surgical visit [] Trauma [] Long length of stay [] ICU visit [x] Other:dialysis Relational/Emotional Strength [] Patient feels connected with others/family/visitors/staff [] Distress [] Loneliness/isolation [] Abandonment Spirituality of Patient [] Person of Fannie [] Attends Catholic of their [place]annie [] Believes in Prayer [] Reads Bible or Confucianism materials [] There are Spiritual issues to be addressed Three Dimensional Art Instructor Interventions [] Prayer [] Active listening [] Non-anxious presence [] Spiritual/emotional support [] Crisis/trauma care [] Spiritual counseling [] Bereavement support [] Provided bereavement packet [] Provided Bible/devotional materials [] Provided toy/stuffed animal, coloring book to patient or family member [] Provided Communion [] Anointing/[place] [] Salvation [x] Completed spiritual assessment [] Other: Impact on Illness or Injury [] Angry [] Fearful [] Anxious [] Often cries [] Exhaustion [] Unable to work [] Unable to attend anabaptist [] Unable to walk/stand [] Unable to read [] Unable to drive [] Unable to eat/drink [] Unable to sleep [] Unable to be with family [] Patient intubated [] Other: Summary Time spent with patient
--- NOTE | 2019-09-22 10:08 | P.DS_ITS ---
Discharge Providers Date of Admission: 09/21/19 09:17 Date of Discharge: September 22, 2019 Attending Provider at Admission: Jacqui Russell DO Attending Provider at Discharge: Jacqui Russell DO Primary Care Provider: Magdiel Amador MD Diagnoses at Discharge Discharge Diagnosis (1) Non-STEMI (non-ST elevated myocardial infarction): Status: Acute (2) Essential hypertension: Status: Acute (3) Anemia: Status: Acute Qualifiers: Anemia type: unspecified type Qualified Code(s): D64.9 - Anemia, unspecified (4) Chest pain: Status: Acute Qualifiers: Chest pain type: precordial pain Qualified Code(s): R07.2 - Precordial pain (5) History of permanent cardiac pacemaker placement: Status: Acute (6) End stage renal disease: Status: Acute Reason for Visit Reason for Visit: SORE THROAT Hospital Course Hospital Course: Patient was seen and evaluated in the emergency department noted to have concern for chest pain with risk factors of hypertension, diabetes, end-stage renal disease on dialysis. Patient had nonspecific EKG findings and flat troponin, consulted with cardiology due to patient's risk factors due to patient likely requiring cardiac catheterization, she is already on dialysis. Cardiology agreed and patient was taken for cardiac cath on 09/21/2019. She was noted to have lesion in the RCA and required PCI. Patient did well in the postoperative setting. She was taken for scheduled dialysis on date of discharge, at that time she denied any chest pain, no shortness of breath denied any concerns. Discussed with patient plan for discharge to home, she verbalized understanding and agreed with plan. Physical Exam Const: COMMON NORMALS: patient oriented x3 and alert GENERAL APPEARANCE: cooperative ORIENTATION/CONSCIOUSNESS: Yes awake, Yes oriented to person, Yes oriented to place and Yes oriented to time HENMT: COMMON NORMALS: normocephalic and atraumatic HEAD & SCALP: normocephalic and atraumatic Eye: COMMON NORMALS: Equal, round and reactive pupils present PUPIL: Yes Equal, round and reactive pupils present Neck/C-Spine: COMMON NORMALS: supple GENERAL: Yes normal visual inspection Resp: COMMON NORMALS: normal respiratory effort and clear to auscultation bilaterally EFFORT & INSPECTION: Yes able to speak in complete sentences AUSCULTATION: clear to auscultation bilaterally OTHER: Lungs clear to auscultation bilaterally, no wheezing or rhonchi Cardio: COMMON NORMALS: regular rate and regular rhythm RATE: regular rate RHYTHM: regular rhythm OTHER: Faint systolic murmur GI: COMMON NORMALS: Soft to palpation and non-tender INSPECTION: No abdominal distension AUSCULTATION: Yes normoactive bowel sounds PALPATION: Yes Soft to palpation Extremity: COMMON NORMALS: no clubbing, cyanosis or edema and no calf tenderness Neuro: COMMON NORMALS: patient oriented x3, CN's II-XII intact bilaterally, moves all extremities and no focal motor deficits SENSORIUM/ORIENTATION: Yes alert, Yes oriented to person, Yes oriented to place and Yes oriented to time SPEECH: speech normal Psych: COMMON NORMALS: mental status grossly normal and cooperative Skin: COMMON NORMALS: no rashes or lesions noted GENERAL SKIN EXAM: no rashes or lesions noted Discharge Data Data Completed and Pending: Completed Studies During Hospitalization Category Date Time Status CT angio chest PE protcl [id number] Stat Cat Scan 09/20/19 09:49 Completed XR chest 1V tra ble [id number] Stat Exams 09/20/19 08:10 Completed Pending at discharge Category Date Time Status PROCUREMENT MANAGER request for service Routin e Exams 09/21/19 09:26 Taken Labs from last 24 hours 09/22/19 09/22/19 09/22/19 06:03 03:20 03:20 WBC 7.6 RBC 2.78 L Hgb 8.5 L Hct 27.2 L MCV 97.8 MCH 30.6 MCHC 31.3 RDW 12.8 Plt Count 208 MPV 11.2 H Neut % (Auto) 70.9 Lymph % (Auto) 15.1 Woodson % (Auto) 11.9 Eos % (Auto) 1.3 Baso % (Auto) 0.4 Neut # (Auto) 5.35 Lymph # (Auto) 1.1 Woodson # (Auto) 0.9 Eos # (Auto) 0.1 Baso # (Auto) 0.0 Nucleated RBC % (a uto) 0 Nucleated RBCs # 0.0 Sodium 134 L Potassium 4.0 Chloride 96 L Carbon Dioxide 26 Anion Gap 16.0 BUN 33 H Creatinine 4.6 H GFR Calculation Not Reportable Glucose 99 POC Glucose 122 Calculated Osmolal ity 275 L Calcium 8.7 09/21/19 09/21/19 09/21/19 20:13 16:27 11:22 WBC RBC Hgb Hct MCV MCH MCHC RDW Plt Count MPV Neut % (Auto) Lymph % (Auto) Woodson % (Auto) Eos % (Auto) Baso % (Auto) Neut # (Auto) Lymph # (Auto) Woodson # (Auto) Eos # (Auto) Baso # (Auto) Nucleated RBC % (a uto) Nucleated RBCs # Sodium Potassium Chloride Carbon Dioxide Anion Gap BUN Creatinine GFR Calculation Glucose POC Glucose 143 104 79 Calculated Osmolal ity Calcium Vitals: Last Vital Signs Temp 98.0 F 09/22/19 03:50 Pulse 78 09/22/19 03:50 Resp 14 09/22/19 03:50 BP 140/53 09/22/19 03:50 Pulse Ox 95 09/22/19 03:50 Discharge Plan Discharge Patient Disposition: Home Health Service Condition: Stable Prescriptions: New clopidogrel 75 mg Tablet 75 mg PO DAILY 30 Days Qty: 30 RF: 0 atorvastatin 40 mg tablet 40 mg PO QPM 30 Days Qty: 30 RF: 0 nitroglycerin 0.4 mg Tablet, Sublingual 0.4 mg sublingual Q5M PRN (Reason: Chest Pain) 30 Days Qty: 20 RF: 0 aspirin [Enteric Coated Aspirin] 81 mg tablet,delayed release (DR/EC) 81 mg PO DAILY 30 Days Qty: 30 RF: 0 Continued acetaminophen [Tylenol] 325 mg capsule 650 mg PO PRN RF: 0 alprazolam 0.25 mg tablet 0.25 mg PO DAILY RF: 0 amlodipine 10 mg tablet 10 mg PO DAILY RF: 0 omeprazole 40 mg capsule,delayed release(DR/EC) 40 mg PO DAILY RF: 0 Tradjenta 5 mg tablet 5 mg PO DAILY RF: 0 furosemide 80 mg tablet 60 mg PO BID RF: 0 flaxseed oil 1,000 mg Capsule 1,000 mg PO DAILY RF: 0 metoprolol succinate 25 mg Tablet Extended Release 24 Hr 12.5 mg PO DAILY RF: 0 ondansetron HCl 4 mg tablet 4 mg PO Q8H PRN (Reason: Nausea) RF: 0 lidocaine-prilocaine 2.5-2.5 % cream See Rx Instructions .ROUTE .COMPLEX RF: 0 calcium acetate(phosphat bind) 667 mg capsule See Rx Instructions .ROUTE .COMPLEX RF: 0 Ocuvite with Lutein 1,000 unit-200 mg-60 unit-2 mg Tablet 1 tab PO DAILY RF: 0 RenaPlex-D 800 mcg-12.5 mg -2,000 unit tablet 1 tab PO QPM RF: 0 cholecalciferol (vitamin D3) [Vitamin D3] 50 mcg (2,000 unit) Tablet 50 mcg PO DAILY RF: 0 Discontinued aspirin 325 mg tablet 325 mg PO DAILY Qty: 30 RF: 6 Discharge Orders: Discharge Order (Routine); Ordered 09/22/19 Ordered By: Jacqui Russell Referrals: [facility] [Outside] Kevin Patel MD [Referring] - 2 weeks Selvin Dolan MD [Physician] - (You have an appointment scheduled with Dr Dolan: Ear, Nose and Throat specialist for October 07, 2019 at 10 am.) Carrie Henderson MD [Physician] - 1 week (Follow-up with cardiology office in 1 we ek with follow-up with Dr. Henderson as directed) Magdiel Amador MD [Primary Care Provider] - 4-7 days Discharge Diet: Cardiac and Diabetic Discharge Activity: Increase activity as tolerated and Limit activity as instructed Activity Restrictions/Additional Instructions: Diagnosed with coronary artery disease requiring stent placement to the right side of your heart. Medication changes as follows Aspirin 81 mg daily, Plavix 75 mg daily, continue on metoprolol 12.5 mg daily, started on atorvastatin 40 mg daily Follow-up with cardiology office in 1 week Continue with dialysis as scheduled on Friday, Friday, Friday. Follow-up with Dr. Patel as previously scheduled Follow-up with your primary care provider in 3 to 5 days Prescribed nitroglycerin to use as needed for chest pain, for chest pain that is not resolved with 2 nitroglycerin please present to the emergency department Call your physician or present to the ED for any acute illness or concern Continue on renal, dialysis diet Continue with home health services Follow-up with Dr. Dolan as previously scheduled Discharge Attestations Time Spent in Discharge Care*: greater than 30 min Specific Discharge Activities: Specific discharge activities: educating patient and documenting/other paperwork Quality Metrics Clinical Quality Measures During this hospital stay, did patient experience: None Coding Level of Care Code Acute Customer Service Rep for g Fwd Diagnoses Non-STEMI (non-ST elevated myocardial infarction) I21.4 Essential hypertension I10 Anemia D64.9 Anemia type: unspecified type Chest pain R07.2 Chest pain type: precordial pain History of permanent cardiac pacemaker placement Z95.0 End stage renal disease N18.6
[2019-09-22] MEDS: clopidogrel 75 mg Tablet PO (11:07)
[2019-09-22] MEDS: aspirin 325 mg Tablet PO (11:07)
[2019-09-22] MEDS: FUROsemide 40 mg Tablet 60 MG PO (11:08)
[2019-09-22] MEDS: amlodipine 10 mg Tablet PO (11:08)
[2019-09-22] MEDS: metoprolol succinate ER (24 HR) 25 mg Tablet 12.5 MG PO (11:08)
[2019-09-22 11:11] VITALS: BP 148/54; PULSE 67; RESP 11; TEMP 36.7; O2SAT 92
[2019-09-22 11:41] LABS: Glucose Point of Care 136 mg/dL (70-110)
[2019-09-22 11:43] VITALS: BP 148/54; PULSE 67; RESP 11; TEMP 36.7; O2SAT 92
--- NOTE | 2019-09-22 11:56 | PC.NURSE ---
PATIENT WAS TAKEN TO DIALYSIS PRIOR TO THIS NURSE BEGINNING HER SHIFT. THIS NURSE GAVE CERTAIN MEDICATIONS WHILE PATIENT WAS IN DIALYSIS INCLUDING PHOSLO, THAT WOULD NOT BE DIALIZED OUT. NURSE REVIEWED VITAL SIGNS WITH DIALYSIS NURSE, PLEASE SEE DOCUMENTATION. PATIENT ASSESSED AND GIVEN MORNING MEDICATIONS UPON ARRIVAL TO FLOOR.
--- NOTE | 2019-09-22 12:25 | PC.OT ---
OT EVALUATION COMPLETED. PATIENT DEMONSTRATES NO DEFICITS IN ADL/MRADL. NO FURTHER SKILLED OT REQUIRED.
--- NOTE | 2019-09-22 12:54 | PC.RESP ---
PULMONARY REHAB INFORMATION SENT TO PATIENT.
--- NOTE | 2019-09-22 13:21 | PM.PN ---
Subjective Subjective: Interval history: Seen on dialysis, tolerating therapy well. For DC today. S/p drug-eluting stent to proximal and mid RCA for significant 90 and 80% lesion. Feeling better. Vitals/I&O/Wt Last Vital Signs Temp 98.1 F 09/22/19 11:43 Pulse 67 09/22/19 11:43 Resp 11 L 09/22/19 11:43 BP 148/54 09/22/19 11:43 Pulse Ox 92 09/22/19 11:43 09/21/19 09/22/19 09/22/19 22:59 06:59 14:59 Intake Total 340 / 580 320 / 900 480 / 480 Balance 340 / 580 320 / 900 480 / 480 Weight last 48 hrs Weight 56.835 kg Weight 55.792 kg Physical Exam Narrative: EXAM NARRATIVE: Seen and examined via telemed with the aid of the bedside RN Constitutional: Awake, conversant, jovial HEENT: Wet mucosa, no jvp, non icteric Lungs: Bilaterally scattered rales without discernible wheeze CVS: S1 S2, no murmurs Abdo: Soft, BS ok Ext 4: Minimal edema, peripheral perfusion with no cyanosis Neurological: Grossly non-focal Data : 09/22/19 03:20 09/22/19 03:20 A&P Additional A&P Information 1. ESRD - S/p HD today; 3K, UF 2L - cont MWF schedule 2. NSTEMI - ms/p LHC today with stents placed - ASA, B blockers 3. Hemodynamics appear stable 4. 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 Chronic ESRD issues to be addressed in OP clinic including titration of binders/ mgmt of sec hyperPTHism etc. - cont home meds ie PhosLo Attestations Medical Necessity Statement*: eval for ESRD mgmt Coding Level of Care Code Acute Electrical Plumbing Supervisor for Chg Fwdaksha
--- NOTE | 2019-09-22 19:51 | P.PN_ITS ---
Subjective Subjective: Interval history: Feeling much better improved. Status post drug- eluting stent to proximal and mid RCA. Vitals/I&O/Wt Last Vital Signs Temp 98.1 F 09/22/19 11:43 Pulse 67 09/22/19 11:43 Resp 11 L 09/22/19 11:43 BP 148/54 09/22/19 11:43 Pulse Ox 92 09/22/19 11:43 09/22/19 09/22/19 09/22/19 06:59 14:59 22:59 Intake Total 320 / 900 480 / 480 Balance 320 / 900 480 / 480 Weight last 48 hrs Weight 125 lb 4.8 oz Weight 123 lb Physical Exam Narrative: EXAM NARRATIVE: GENERAL: Patient is alert, awake and oriented x3. NECK: No jugular vein distension. HEENT: No cyanosis. No icterus. No pallor. HEART: Regular S1 and S2. No murmur, rub or gallop. LUNGS: Clear to auscultate bilaterally. ABDOMEN: Soft, nontender and nondistended. Positive bowel sounds. No guarding, rebound or tenderness. CENTRAL NERVOUS SYSTEM: Grossly nonfocal. EXTREMITIES: Lower extremities without edema bilaterally. Data : 09/22/19 03:20 09/22/19 03:20 A&P Assessment and plan (1) Non-STEMI (non-ST elevated myocardial infarction): Status post PCI to proximal mid RCA. Patient has moderate disease on the left side and LAD and diagonal branches. She is feeling much better denies any chest pain shortness of breath. Patient is post dialysis. Continue aspirin statin beta-bill and Plavix. Advised to continue taking Plavix for at least 1 year. Status: Acute (2) Essential hypertension: Optimally controlled continue medicine Status: Acute (3) Anemia: Anemia of chronic kidney disease. Follow-up with primary care and nephrology Status: Acute Qualifiers: Anemia type: unspecified type Qualified Code(s): D64.9 - Anemia, unspecified (4) Chest pain: Resolved Status: Acute Qualifiers: Chest pain type: precordial pain Qualified Code(s): R07.2 - Precordial pain (5) History of permanent cardiac pacemaker placement: Patient has pacemaker working in good condition. Status: Acute (6) End stage renal disease: On hemodialysis. Continue as per nephrology Status: Acute Attestations Medical Necessity Statement*: From cardiovascular perspective patient can be discharged home. Follow-up with cardiology in 7 days for Coding Level of Care Code Established Pt Acute Foundry Supervisor for Chg Fwd Patient Type Established History Expanded Problem Focused Exam Expanded Problem Focused Medical Decision Making Moderate Complexity Diagnoses Non-STEMI (non-ST elevated myocardial infarction) I21.4 Essential hypertension I10 Anemia D64.9 Anemia type: unspecified type Chest pain R07.2 Chest pain type: precordial pain History of permanent cardiac pacemaker placement Z95.0 End stage renal disease N18.6
== END 2019-09-22 13:31 | disposition home health service (06) | DRG 246 ==
LOC: ER 09:38 → CSU 10:56
PROVIDERS: Family Medicine; Internal Medicine Cardiovascular Disease; Admitting Provider Family Medicine; PCP Family Medicine; Visit Provider Family Medicine
PROC: 027034Z Dilation of Coronary Artery, One Artery with Drug-eluting Intraluminal Device, Percutaneous Approach (ICD-10-PCS; principal; 2019-09-21 07:00)
PROC: 027034Z Dilation of Coronary Artery, One Artery with Drug-eluting Intraluminal Device, Percutaneous Approach (ICD-10-PCS; 2019-09-21 07:00)
DX: I21.4 Non-ST elevation (NSTEMI) myocardial infarction (principal); I50.33 Acute on chronic diastolic (congestive) heart failure; N18.6 End stage renal disease; I13.2 Hypertensive heart and chronic kidney disease with heart failure and with stage 5 chronic kidney disease, or end stage renal disease; I48.19 Other persistent atrial fibrillation; E11.22 Type 2 diabetes mellitus with diabetic chronic kidney disease; Z66 Do not resuscitate; D63.1 Anemia in chronic kidney disease; I65.29 Occlusion and stenosis of unspecified carotid artery; Z95.0 Presence of cardiac pacemaker; R07.2 Precordial pain; Z99.2 Dependence on renal dialysis; Z79.82 Long term (current) use of aspirin; J44.9 Chronic obstructive pulmonary disease, unspecified; K21.9 Gastro-esophageal reflux disease without esophagitis; Z87.891 Personal history of nicotine dependence
CPT/HCPCS: 12345; 36415; 36416; 71045; 71275; 80048; 80053; 80061; 81001; 81003; 82962; 83735; 83880; 84100; 84443; 84484; 85025; 85347; 85378; 85610; 90935; 93005; 93454; 94640; 94664; 96372; 97161; 99281; 99283; C1725; C1769; C1874; C1887; C1894; C9600; G0378; J1644; J1815; J2250; J3010; J3490; J7030; Q0163; Q3014; Q9967

== ENCOUNTER 2019-10-01 09:29 | Emergency (ER) | payer MEDICARE, MEDICAID, SELFPAY ==
[2019-10-01 09:33] VITALS: BP 173/65; PULSE 84; RESP 17; TEMP 36.9; O2SAT 96; BMI 22.1
--- NOTE | 2019-10-01 09:37 | ECG_ITS ---
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 Measurements Intervals [place] Rate: 86 P: 128 VT: 177 QRS: -63 QRSD: 161 T: 84 QT: 420 QTc: 505 Interpretive Statements ELECTRONIC ATRIAL PACEMAKER ELECTRONIC VENTRICULAR PACEMAKER A paced v paced rhythm Compared to ECG 09/20/2019 13:26:49 No significant changes Electronically Signed On 10-01-2019 18:13:34 CDT by Pedro Silvestre M.D. [email or web address]
--- NOTE | 2019-10-01 09:37 | XR_ITS ---
WS: [id number] PORTABLE CHEST HISTORY: dyspnea/cough COMPARISON: 09/20/2019 Dual lead LEFT subclavian pacer. Mild chronic emphysema. No pneumonia. Normal vasculature. No pleural effusion or pneumothorax. Cardiac size: Normal. Mediastinum/Aorta: Mild atherosclerosis aorta. No osseous abnormality seen. LEFT axillary nelson dissection. XR/XR chest 1V portable [id number] IMPRESSION: Chronic emphysema. No acute cardiopulmonary disease.
--- NOTE | 2019-10-01 09:40 | ED_ITS ---
HPI - SOB/Dyspnea General: Chief Complaint: Shortness of Breath/Dyspnea Stated Complaint: SOB, ERRATIC HEART RATE Time Seen by Provider: 10/01/19 09:34 History of Present Illness: HPI Narrative: 84 yo female present to the ER with c/o of palpitations. Pt reently had an NSTEMI, she underwent PTCA and had 2 stents in her RCA. She has a history of atrial fibrillation. She also has a pacer. She is feeling fine now although she is a little more orthopneic than usual she denies any chest pain. Pertinent past history: other (palpitations) Onset (ago): hour(s) Context: recent illness Timing: intermittent Severity: mild Exacerbating factors: nothing Relieving factors: nothing Associated symptoms: Deny abdominal pain, chest congestion, chest pain, cough, diaphoresis, dizziness, extremity pain, fever(s), hemoptysis, lightheadedness, myalgias, nausea, orthopnea, palpitations or rash Treatment prior to arrival: none Review of Systems 2 Const: Denies: fever(s) or diaphoresis ENMT: Denies: throat pain, ear or mastoid pain, nasal discharge or nasal congestion Card: Denies: chest pain, palpitations, lightheadedness or orthopnea Resp: Denies: hemoptysis or chest congestion GI: Denies: abdominal pain or nausea : Denies: flank pain, difficulty voiding, dysuria, urinary frequency or urinary urgency Musc: Denies: extremity pain Skin/Breast: Denies: rash or pruritus Neuro: Denies: dizziness PFSH ED PFSH: Medical History Anemia Carotid stenosis COPD (chronic obstructive pulmonary disease) Coronary artery disease 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 Diabetes Diastolic congestive heart failure End stage renal disease Essential hypertension GERD (gastroesophageal reflux disease) Intermittent atrial fibrillation Interstitial lung disease Third degree heart block Status post pacemaker placement Surgical History Hemodialysis access site with arteriovenous graft History of laparoscopic cholecystectomy History of tubal ligation S/P hemodialysis catheter insertion Family History Mother Cancer Lung cancer Father Diabetes Other CAD (coronary artery disease) Denies family history of Anesthesia complication Bleeding disorder Social History Smoking and tobacco status: former smoker Alcohol intake: never Physical Exam Const: COMMON NORMALS: no acute distress GENERAL APPEARANCE: cooperative and comfortable ORIENTATION/CONSCIOUSNESS: Yes awake, Yes oriented to person, Yes oriented to place and Yes oriented to time HENMT: COMMON NORMALS: normocephalic and atraumatic HEAD & SCALP: normocephalic and atraumatic Eye: COMMON NORMALS: Equal, round and reactive pupils present, EOMs intact bilaterally, conjunctivae normal and no scleral icterus CONJUNCTIVA: Yes conjunctivae normal PUPIL: Yes Equal, round and reactive pupils present Neck/C-Spine: COMMON NORMALS: full ROM, no lymphadenopathy, supple and no JVD Lymph: LYMPHATIC: no lymphadenopathy noted and no lymphedema noted Resp: COMMON NORMALS: normal respiratory effort, No retractions, No use of accessory muscles and clear to auscultation bilaterally AUSCULTATION: clear to auscultation bilaterally Cardio: COMMON NORMALS: no JVD, regular rate, regular rhythm and No murmurs present (Cardio) RATE: regular rate RHYTHM: regular rhythm GI: COMMON NORMALS: Soft to palpation and No hepatosplenomegaly present AUSCULTATION: Yes normoactive bowel sounds PALPATION: Yes Soft to palpation, No Tenderness to palpation present (GI), No Guarding due to palpation present (GI) and Yes No hepatosplenomegaly present Extremity: COMMON NORMALS: normal to inspection, capillary refill normal, no clubbing, cyanosis or edema, no calf tenderness and no pedal edema Neuro: SENSORIUM/ORIENTATION: Yes oriented to person, Yes oriented to place and Yes oriented to time Skin: COMMON NORMALS: no rashes or lesions noted GENERAL SKIN EXAM: no rashes or lesions noted Course Vital Signs: Vital signs: Vital Signs Temperature 98.5 F 10/01/19 09:33 Pulse Rate 84 10/01/19 12:16 Respiratory Rate 20 H 10/01/19 12:16 Blood Pressure 171/62 10/01/19 12:16 Pulse Oximetry 92 10/01/19 12:16 MDM - SOB/Dyspnea MDM Narrative: Medical decision making narrative: Troponins negative. Patient is not having any chest pain. Suspect she had some breakthrough atrial fibrillation will get her on a Holter monitor. Return to dialysis clinic for completion of that round of dialysis for today. Lab Data: Labs: Lab Results 10/01/19 10/01/19 10/01/19 Range/Units 09:49 09:49 09:49 WBC 8.2 (4.0-10.0) 10^3/ uL RBC 2.88 L (4.1-5.3) 10^6/u L Hgb 9.1 L (11.5-15.3) g/dL Hct 30.1 L (37.0-47.0) % MCV 104.5 H (81-99) fL MCH 31.6 (28.0-34.0) pg MCHC 30.2 (30.0-36.0) g/dL RDW 12.8 (12.1-15.1) % Plt Count 302 (130-400) 10^3/c mm MPV 10.2 (7.4-10.4) fL Neut % (Auto) 77.9 % Lymph % (Auto) 11.3 % [place] % (Auto) 8.1 % Eos % (Auto) 1.6 % Baso % (Auto) 0.7 % Neut # (Auto) 6.37 (1.8-7.7) 10^3/u L Lymph # (Auto) 0.9 (0.8-4.8) 10^3/u L [place] # (Auto) 0.7 (0.2-0.9) 10^3/u L Eos # (Auto) 0.1 (0.0-0.8) 10^3/u L Baso # (Auto) 0.1 (0.0-0.1) 10^3/u L Nucleated RBC % (a uto) 0 % Nucleated RBCs # 0.0 /100WBC Sodium 139 (136-145) mmol/L Potassium 4.3 (3.5-5.1) mmol/L Chloride 99 (98-107) mmol/L Carbon Dioxide 26 (22-29) mmol/L Anion Gap 18.3 (5-19) BUN 27 H (8-23) mg/dL Creatinine 4.7 H (0.5-0.9) mg/dL GFR Calculation Not Reportable Glucose 148 H (65-115) mg/dL Calculated Osmolal ity 288 (285-295) mOsm/k g Lactic Acid 1.4 (0.5-2.2) mmol/L Calcium 8.7 (8.5-10.5) mg/dL Total Bilirubin 0.2 (0.15-1.2) mg/dL AST 25 (0-32) U/L ALT 18 (0-33) U/L Alkaline Phosphata se 84 (35-105) IU/L Troponin T Baselin e (0-10) ng/L Troponin T 120 Min [place] (0-10) ng/L Delta Troponin T (0-10) ABS# NT-Pro-B Natriuret Pep (0-450) pg/mL Total Protein 6.2 L (6.6-8.7) g/dL Albumin 4.1 (3.5-5.2) g/dL Globulin 2.1 (1.3-4.6) g/dL TSH 4.62 H (0.27-4.20) uIU/ mL Urine Color (Yellow) Urine Appearance (CLEAR) Urine pH (5-7) Ur Specific Gravit y (1.005-1.030) Urine Protein (Negative) Urine Glucose (UA) (Normal) Urine Ketones (Negative) Urine Blood (Negative) Urine Nitrate (Negative) Urine Bilirubin (NEGATIVE) Prot Sulfosalicyli c Acd (Negative) Urine Urobilinogen (Negative) mg/dL Ur Leukocyte Pilar ase (Negative) 10/01/19 10/01/19 10/01/19 Range/Units 09:49 09:49 10:12 WBC (4.0-10.0) 10^3/ uL RBC (4.1-5.3) 10^6/u L Hgb (11.5-15.3) g/dL Hct (37.0-47.0) % MCV (81-99) fL MCH (28.0-34.0) pg MCHC (30.0-36.0) g/dL RDW (12.1-15.1) % Plt Count (130-400) 10^3/c mm MPV (7.4-10.4) fL Neut % (Auto) % Lymph % (Auto) % [place] % (Auto) % Eos % (Auto) % Baso % (Auto) % Neut # (Auto) (1.8-7.7) 10^3/u L Lymph # (Auto) (0.8-4.8) 10^3/u L [place] # (Auto) (0.2-0.9) 10^3/u L Eos # (Auto) (0.0-0.8) 10^3/u L Baso # (Auto) (0.0-0.1) 10^3/u L Nucleated RBC % (a uto) % Nucleated RBCs # /100WBC Sodium (136-145) mmol/L Potassium (3.5-5.1) mmol/L Chloride (98-107) mmol/L Carbon Dioxide (22-29) mmol/L Anion Gap (5-19) BUN (8-23) mg/dL Creatinine (0.5-0.9) mg/dL GFR Calculation Glucose (65-115) mg/dL Calculated Osmolal ity (285-295) mOsm/k g Lactic Acid (0.5-2.2) mmol/L Calcium (8.5-10.5) mg/dL Total Bilirubin (0.15-1.2) mg/dL AST (0-32) U/L ALT (0-33) U/L Alkaline Phosphata se (35-105) IU/L Troponin T Baselin e 174 H* (0-10) ng/L Troponin T 120 Min [place] (0-10) ng/L Delta Troponin T (0-10) ABS# NT-Pro-B Natriuret Pep 80038 H (0-450) pg/mL Total Protein (6.6-8.7) g/dL Albumin (3.5-5.2) g/dL Globulin (1.3-4.6) g/dL TSH (0.27-4.20) uIU/ mL Urine Color Yellow (Yellow) Urine Appearance Clear (CLEAR) Urine pH 9 H (5-7) Ur Specific Gravit y 1.015 (1.005-1.030) Urine Protein Neg (Negative) Urine Glucose (UA) Norm (Normal) Urine Ketones Negative (Negative) Urine Blood Neg (Negative) Urine Nitrate Negative (Negative) Urine Bilirubin Neg (NEGATIVE) Prot Sulfosalicyli c Acd Positive (Negative) Urine Urobilinogen Neg (Negative) mg/dL Ur Leukocyte Pilar ase Negative (Negative) 10/01/19 Range/Units 11:33 WBC (4.0-10.0) 10^3/ uL RBC (4.1-5.3) 10^6/u L Hgb (11.5-15.3) g/dL Hct (37.0-47.0) % MCV (81-99) fL MCH (28.0-34.0) pg MCHC (30.0-36.0) g/dL RDW (12.1-15.1) % Plt Count (130-400) 10^3/c mm MPV (7.4-10.4) fL Neut % (Auto) % Lymph % (Auto) % [place] % (Auto) % Eos % (Auto) % Baso % (Auto) % Neut # (Auto) (1.8-7.7) 10^3/u L Lymph # (Auto) (0.8-4.8) 10^3/u L [place] # (Auto) (0.2-0.9) 10^3/u L Eos # (Auto) (0.0-0.8) 10^3/u L Baso # (Auto) (0.0-0.1) 10^3/u L Nucleated RBC % (a uto) % Nucleated RBCs # /100WBC Sodium (136-145) mmol/L Potassium (3.5-5.1) mmol/L Chloride (98-107) mmol/L Carbon Dioxide (22-29) mmol/L Anion Gap (5-19) BUN (8-23) mg/dL Creatinine (0.5-0.9) mg/dL GFR Calculation Glucose (65-115) mg/dL Calculated Osmolal ity (285-295) mOsm/k g Lactic Acid (0.5-2.2) mmol/L Calcium (8.5-10.5) mg/dL Total Bilirubin (0.15-1.2) mg/dL AST (0-32) U/L ALT (0-33) U/L Alkaline Phosphata se (35-105) IU/L Troponin T Baselin e (0-10) ng/L Troponin T 120 Min [place] 171.8 H (0-10) ng/L Delta Troponin T -2.2 L (0-10) ABS# NT-Pro-B Natriuret Pep (0-450) pg/mL Total Protein (6.6-8.7) g/dL Albumin (3.5-5.2) g/dL Globulin (1.3-4.6) g/dL TSH (0.27-4.20) uIU/ mL Urine Color (Yellow) Urine Appearance (CLEAR) Urine pH (5-7) Ur Specific Gravit y (1.005-1.030) Urine Protein (Negative) Urine Glucose (UA) (Normal) Urine Ketones (Negative) Urine Blood (Negative) Urine Nitrate (Negative) Urine Bilirubin (NEGATIVE) Prot Sulfosalicyli c Acd (Negative) Urine Urobilinogen (Negative) mg/dL Ur Leukocyte Pilar ase (Negative) Discharge Plan Discharge Patient Disposition: Home Clinical Impression: Atrial fibrillation, End stage renal disease, Essential hypertension, Diabetes, Carotid stenosis, History of permanent cardiac pacemaker placement, Intermittent atrial fibrillation, Coronary artery disease Condition: Stable Prescriptions: No Action acetaminophen [Tylenol] 325 mg capsule 650 mg PO PRN RF: 0 alprazolam 0.25 mg tablet 0.25 mg PO DAILY RF: 0 amlodipine 10 mg tablet 10 mg PO DAILY RF: 0 omeprazole 40 mg capsule,delayed release(DR/EC) 40 mg PO DAILY RF: 0 Tradjenta 5 mg tablet 5 mg PO DAILY RF: 0 flaxseed oil 1,000 mg Capsule 1,000 mg PO DAILY RF: 0 metoprolol succinate 25 mg Tablet Extended Release 24 Hr 12.5 mg PO DAILY RF: 0 ondansetron HCl 4 mg tablet 4 mg PO Q8H PRN (Reason: Nausea) RF: 0 calcium acetate(phosphat bind) 667 mg capsule See Rx Instructions .ROUTE .COMPLEX RF: 0 Ocuvite with Lutein 1,000 unit-200 mg-60 unit-2 mg Tablet 1 tab PO DAILY RF: 0 RenaPlex-D 800 mcg-12.5 mg -2,000 unit tablet 1 tab PO QPM RF: 0 cholecalciferol (vitamin D3) [Vitamin D3] 50 mcg (2,000 unit) Tablet 50 mcg PO DAILY RF: 0 clopidogrel 75 mg Tablet 75 mg PO DAILY 30 Days Qty: 30 RF: 0 nitroglycerin 0.4 mg Tablet, Sublingual 0.4 mg sublingual Q5M PRN (Reason: Chest Pain) 30 Days Qty: 20 RF: 0 aspirin [Enteric Coated Aspirin] 81 mg tablet,delayed release (DR/EC) 81 mg PO DAILY 30 Days Qty: 30 RF: 0 atorvastatin 40 mg tablet 40 mg PO QPM 30 Days Qty: 30 RF: 0 furosemide 20 mg Tablet 60 mg PO BID RF: 0 Referrals: Magdiel Amador MD [Primary Care Provider] - Discharge Diet: Usual diet Discharge Activity: Resume usual activity Activity Restrictions/Additional Instructions: Continue activity as normal. Return to dialysis to complete your scheduled run for today Case management will call to get you set up with a nuclear monitoring technician. Discharge Date/Time: 10/01/19 12:42 Coding Level of Care Code ED Gaming Dealer for Chg Fwd Exam Comprehensive
[2019-10-01 09:58] LABS: Basophils # 0.1 10^3/uL (0.0-0.1); Basophils % 0.7 %; Eosinophils # 0.1 10^3/uL (0.0-0.8); Eosinophils % 1.6 %; Hematocrit 30.1 % (37.0-47.0); Hemoglobin 9.1 g/dL (11.5-15.3); Lymphocytes # 0.9 10^3/uL (0.8-4.8); Lymphocytes % 11.3 %; Mean Corpuscular HGB Conc 30.2 g/dL (30.0-36.0); Mean Corpuscular Hemoglobin 31.6 pg (28.0-34.0); Mean Corpuscular Volume 104.5 fL (81-99); Mean Platelet Volume 10.2 fL (7.4-10.4); Monocytes # 0.7 10^3/uL (0.2-0.9); Monocytes % 8.1 %; Neutrophils # 6.37 10^3/uL (1.8-7.7); Neutrophils % 77.9 %; Nucleated Red Blood Cells % 0 %; Platelet Count 302 10^3/cmm (130-400); Red Blood Count 2.88 10^6/uL (4.1-5.3); Red Cell Distribution Width 12.8 % (12.1-15.1); White Blood Count 8.2 10^3/uL (4.0-10.0)
[2019-10-01 10:17] LABS: Lactic Sepsis W/Reflex 1.4 mmol/L (0.5-2.2)
[2019-10-01 10:25] LABS: Alanine Aminotransferase 18 U/L (0-33); Albumin Level 4.1 g/dL (3.5-5.2); Alkaline Phosphatase 84 IU/L (35-105); Aspartate Amino Transferase 25 U/L (0-32); Blood Urea Nitrogen 27 mg/dL (8-23); Calcium 8.7 mg/dL (8.5-10.5); Carbon Dioxide 26 mmol/L (22-29); Chloride 99 mmol/L (98-107); Globulin 2.1 g/dL (1.3-4.6); Glucose 148 mg/dL (65-115); Osmolality Calculated 288 mOsm/kg (285-295); Sodium 139 mmol/L (136-145); Thyroid Stimulating Hormone 4.62 uIU/mL (0.27-4.20); Total Bilirubin 0.2 mg/dL (0.15-1.2); Total Protein 6.2 g/dL (6.6-8.7)
[2019-10-01 10:33] LABS: Add Urine Microscopic? NO
[2019-10-01 10:35] LABS: Bilirubin Urine Neg (NEGATIVE); Blood Urine Neg (Negative); Glucose Urine UA Norm (Normal); Ketones Urine Negative (Negative); Leukocyte Esterase Urine Negative (Negative); Nitrate Urine Negative (Negative); Protein Urine Neg (Negative); Specific Gravity, Urine 1.015 (1.005-1.030); Sulfosalicylic Acid Urine Positive (Negative); Urine Appearance Clear (CLEAR); Urine Color Yellow (Yellow); Urobilinogen Urine Neg (Negative); pH Urine 9 (5-7)
[2019-10-01 10:36] LABS: Anion Gap 18.3 (5-19); Potassium 4.3 mmol/L (3.5-5.1)
[2019-10-01 10:38] LABS: Troponin(5th) Baseline 174 ng/L (0-10)
[2019-10-01 10:45] LABS: NT Pro B Type Natriuretic Pept 14412 pg/mL (0-450)
[2019-10-01 11:03] VITALS: BP 173/65; PULSE 74; RESP 21; O2SAT 95
--- NOTE | 2019-10-01 11:37 | ECG_ITS ---
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 Measurements Intervals [place] Rate: 79 P: 205 ND: 105 QRS: -66 QRSD: 157 T: 79 QT: 447 QTc: 515 Interpretive Statements ELECTRONIC VENTRICULAR PACEMAKER ABNORMAL RHYTHM ECG INTERPRETATION BASED ON A DEFAULT AGE OF 40 YEARS Compared to ECG 10/01/2019 09:37:48 Atrial-paced complex(es) or rhythm no longer present Electronically Signed On 10-01-2019 18:34:59 CDT by Pedro Silvestre M.D. [id number] f
[2019-10-01 12:05] LABS: Troponin 5 2HR 171.8 ng/L (0-10); Troponin 5 2HR Delta -2.2 ABS# (0-10)
--- NOTE | 2019-10-01 12:14 | PC.NURSE ---
us in room
[2019-10-01 12:16] VITALS: BP 171/62; PULSE 84; RESP 20; O2SAT 92
--- NOTE | 2019-10-01 15:40 | DCPLANNER ---
hotel general manager was asked to schedule a follow up appointment with [facility] for a 24 hour halter monitor. hotel general manager faxed order to centralized scheduling. hotel general manager will call for appointment information.
--- NOTE | 2019-10-05 08:13 | DCPLANNER ---
Patient has a follow up appointment scheduled for 10.05.19 with [facility] for a 24 hour halter monitor.
--- NOTE | 2019-10-07 14:29 | DCPLANNER ---
Patient had an appointment scheduled for 10.05.19 with [facility] for a 24 hour halter monitor - patient did attend the appointment.
== END 2019-10-01 12:42 | disposition home or self-care (01) ==
PROVIDERS: Emergency Provider Family Medicine; PCP Family Medicine
DX: I13.2 Hypertensive heart and chronic kidney disease with heart failure and with stage 5 chronic kidney disease, or end stage renal disease (principal); E11.22 Type 2 diabetes mellitus with diabetic chronic kidney disease; N18.6 End stage renal disease; I50.30 Unspecified diastolic (congestive) heart failure; I65.29 Occlusion and stenosis of unspecified carotid artery; I48.91 Unspecified atrial fibrillation; Z95.0 Presence of cardiac pacemaker; I25.10 Atherosclerotic heart disease of native coronary artery without angina pectoris; Z79.02 Long term (current) use of antithrombotics/antiplatelets; Z79.82 Long term (current) use of aspirin; J44.9 Chronic obstructive pulmonary disease, unspecified; Z99.2 Dependence on renal dialysis; Z87.891 Personal history of nicotine dependence
CPT/HCPCS: 12345; 36415; 71045; 80053; 81003; 83605; 83880; 84443; 84484; 85025; 93005; 93010; 99283; 99284

== ENCOUNTER 2019-10-06 13:41 | Outpatient (CLI) | payer MEDICARE, MEDICAID, SELFPAY ==
--- NOTE | 2019-10-06 13:48 | XRR_ITS ---
PROCEDURE INFORMATION: Exam: XR Chest, 2 Views Exam date and time: 10/06/2019 2:07 PM Age: 84 years old Clinical indication: Shortness of breath; Prior surgery; Surgery type: Pacer TECHNIQUE: Imaging protocol: XR of the chest Views: 2 views. COMPARISON: CR XR chest 1V portable [id number] 10/01/2019 9:41 AM FINDINGS: Tubes, catheters and devices: There is a dual lead pacemaker. Lungs: Unremarkable. No consolidation. Pleural space: Unremarkable. No pleural effusion. No pneumothorax. Heart/Mediastinum: Unremarkable. No cardiomegaly. Bones/joints: Degenerative change is identified in the spine. XR/XR chest 2V* [id number] IMPRESSION: There are no acute concerning abnormalities.
== END 2019-10-06 13:42 | disposition home or self-care (01) ==
LOC: RAD 13:46
PROVIDERS: PCP Family Medicine; Visit Provider Internal Medicine Nephrology
DX: R06.02 Shortness of breath (principal)
CPT/HCPCS: 71046

== ENCOUNTER → 2019-10-07 06:53 | Day surgery (SDC) | payer MEDICARE, MEDICAID, SELFPAY ==
[2019-10-07 07:02] VITALS: BP 164/58; PULSE 68; RESP 18; TEMP 36.6; O2SAT 94; BMI 22.1
[2019-10-07 09:07] VITALS: BP 165/66; PULSE 74; RESP 18; TEMP 36.6; O2SAT 91
[2019-10-07 09:25] VITALS: BP 142/59; PULSE 77; RESP 18; TEMP 36.9; O2SAT 100
[2019-10-07 09:40] VITALS: BP 150/55; PULSE 77; RESP 16; TEMP 36.7; O2SAT 100
[2019-10-07 10:40] VITALS: BP 137/51; PULSE 74; RESP 16; TEMP 37.3; O2SAT 98
[2019-10-07 11:00] VITALS: BP 124/85; PULSE 80; RESP 18; TEMP 37.2
== END ==
PROVIDERS: PCP Family Medicine; Visit Provider Internal Medicine Nephrology
DX: D64.9 Anemia, unspecified (principal); R06.02 Shortness of breath; R07.9 Chest pain, unspecified
CPT/HCPCS: 36415; 36430; 86850; 86900; 86920; P9016

== ENCOUNTER 2019-11-17 14:52 | Emergency (ER) | payer MEDICARE, MEDICAID, SELFPAY ==
--- NOTE | 2019-11-17 15:13 | XRR_ITS ---
PROCEDURE INFORMATION: Exam: XR Chest, 1 View Exam date and time: 11/17/2019 3:47 PM Age: 84 years old Clinical indication: Fever TECHNIQUE: Imaging protocol: XR of the chest Views: 1 view. COMPARISON: CR XR chest 2V* [id number] 10/06/2019 2:04 PM FINDINGS: Tubes, catheters and devices: There is a dual lead pacemaker. Lungs: Unremarkable. No consolidation. Pleural space: Unremarkable. No pleural effusion. No pneumothorax. Heart/Mediastinum: Unremarkable. No cardiomegaly. Bones/joints: Unremarkable. XR/XR chest 1V portable [id number] IMPRESSION: There are no acute concerning abnormalities.
[2019-11-17 15:15] VITALS: BP 168/53; PULSE 78; RESP 16; TEMP 35.4; O2SAT 96; BMI 22.8
--- NOTE | 2019-11-17 15:15 | W.ED.GENADLT ---
HPI - General Adult General: Chief complaint: Weakness Stated complaint: post dialysis/ wont stop bleeding Time Seen by Provider: 11/17/19 15:06 Source: patient Mode of arrival: ambulatory Limitations: no limitations History of Present Illness: HPI narrative: 84-year-old female who is here with bleeding from her dialysis site. She states she has had bleeding off and on for an hour. Patient is holding pressure and has not been able to get it to stop. States she is also had a slight cough and nasal congestion has had had COVID exposure. Denies any worsening improving factors. Denies any shortness of breath. Associated symptoms: Deny chest pain, dyspnea, headache(s), nausea, rash or vomiting Review of Systems Const: Denies: fever(s), chills, body aches or change in appetite Eyes: Denies: blurry vision or eye discomfort ENMT: Reports: nasal discharge; Denies: throat pain or dental pain Card: Denies: chest pain Resp: Reports: non-productive cough; Denies: dyspnea GI: Denies: abdominal pain, nausea, vomiting or diarrhea : Denies: dysuria Musc: Denies: neck pain or back pain Skin/Breast: Denies: rash Neuro: Denies: headache(s) Psych: Denies: depression [place]/Lymph: Denies: easy bruising All/Imm: Denies: urticaria PFSH ED PFSH: Medical History (Updated 11/17/19 @ 17:11 by Brian Sanchez MD) Anemia Carotid stenosis COPD (chronic obstructive pulmonary disease) Coronary artery disease 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 Diabetes Diastolic congestive heart failure End stage renal disease Essential hypertension GERD (gastroesophageal reflux disease) Intermittent atrial fibrillation Interstitial lung disease Third degree heart block Status post pacemaker placement Surgical History (Updated 10/01/19 @ 09:45 by Jalen Parks DO) Hemodialysis access site with arteriovenous graft History of laparoscopic cholecystectomy History of tubal ligation S/P hemodialysis catheter insertion Family History Mother Cancer Lung cancer Father Diabetes Other CAD (coronary artery disease) Denies family history of Anesthesia complication Bleeding disorder Social History Smoking and tobacco status: former smoker Alcohol intake: never Physical Exam Const: COMMON NORMALS: no acute distress, patient oriented x3 and healthy appearing HENMT: COMMON NORMALS: normocephalic and atraumatic HEAD & SCALP: normocephalic and atraumatic Eye: COMMON NORMALS: Equal, round and reactive pupils present and EOMs intact bilaterally PUPIL: Yes Equal, round and reactive pupils present Neck/C-Spine: COMMON NORMALS: full ROM and supple Chest: COMMONS NORMALS: normal inspection of the chest and normal palpation of entire chest wall Resp: COMMON NORMALS: normal respiratory effort, No retractions, No use of accessory muscles and clear to auscultation bilaterally AUSCULTATION: clear to auscultation bilaterally Cardio: COMMON NORMALS: regular rate, regular rhythm and No murmurs present (Cardio) RATE: regular rate RHYTHM: regular rhythm GI: COMMON NORMALS: Normal to inspection, nondistended, normoactive bowel sounds present, Soft to palpation, non-tender and no masses PALPATION: Yes Soft to palpation Extremity: COMMON NORMALS: full ROM NARRATIVE EXTREMITY EXAM: Bleeding from hemodialysis site Neuro: COMMON NORMALS: patient oriented x3, moves all extremities and no focal motor deficits Psych: COMMON NORMALS: mental status grossly normal, Normal thought process present and cooperative THOUGHT PROCESS: Normal thought process present Skin: COMMON NORMALS: no rashes or lesions noted and no wounds GENERAL SKIN EXAM: no rashes or lesions noted Course Vital Signs: Vital signs: Vital Signs Temperature 97.8 F 11/17/19 17:35 Pulse Rate 72 11/17/19 17:35 Respiratory Rate 18 11/17/19 17:35 Blood Pressure 172/61 11/17/19 17:35 Pulse Oximetry 95 11/17/19 17:35 MDM - General Adult MDM Narrative: Medical decision making narrative: Patient presents here with bleeding from her AV fistula site after dialysis today. Bleeding has subsided here after silver nitrate and direct pressure. She no longer has any bleeding. Patient's x-ray here is clear. Will do a COVID swab as well she has had slight symptoms and contact. She has no distress here. She is to follow-up with her PCP and return if worsening. She understands and agrees to plan. Lab Data: Labs: Lab Results 11/17/19 11/17/19 11/17/19 Range/Units 15:35 15:35 15:35 WBC 2.2 L (4.0-10.0) 10^3/ uL RBC 3.82 L (4.1-5.3) 10^6/u L Hgb 11.6 (11.5-15.3) g/dL Hct 36.6 L (37.0-47.0) % MCV 95.8 (81-99) fL MCH 30.4 (28.0-34.0) pg MCHC 31.7 (30.0-36.0) g/dL RDW 13.5 (12.1-15.1) % Plt Count 150 (130-400) 10^3/c mm MPV 11.3 H (7.4-10.4) fL Neut % (Auto) 63.6 % Lymph % (Auto) 25.0 % [place] % (Auto) 10.9 % Eos % (Auto) 0.0 % Baso % (Auto) 0.0 % Neut # (Auto) 1.40 L (1.8-7.7) 10^3/u L Lymph # (Auto) 0.6 L (0.8-4.8) 10^3/u L [place] # (Auto) 0.2 (0.2-0.9) 10^3/u L Eos # (Auto) 0.0 (0.0-0.8) 10^3/u L Baso # (Auto) 0.0 (0.0-0.1) 10^3/u L Nucleated RBC % (a uto) 0 % Nucleated RBCs # 0.0 /100WBC PT 11.70 L (12.1-14.9) SECO NDS INR 0.83 (0.8-1.2) Sodium 139 (136-145) mmol/L Potassium 3.6 (3.5-5.1) mmol/L Chloride 97 L (98-107) mmol/L Carbon Dioxide 29 (22-29) mmol/L Anion Gap 16.6 (5-19) BUN 15 (8-23) mg/dL Creatinine 2.4 H (0.5-0.9) mg/dL GFR Calculation Not Reportable Glucose 85 (65-115) mg/dL Calculated Osmolal ity 288 (285-295) mOsm/k g Calcium 8.7 (8.5-10.5) mg/dL Total Bilirubin 0.2 (0.15-1.2) mg/dL AST 60 H (0-32) U/L ALT 24 (0-33) U/L Alkaline Phosphata se 82 (35-105) IU/L Total Protein 6.1 L (6.6-8.7) g/dL Albumin 3.8 (3.5-5.2) g/dL Globulin 2.3 (1.3-4.6) g/dL Imaging Data^: CXR: Attestation: I personally reviewed and interpreted this imaging study as follows: My impression: no acute abnormalituy Discharge Plan Discharge Patient Disposition: Home Clinical Impression: Hemorrhage of arteriovenous fistula Qualifiers: Encounter type: initial encounter Qualified Code(s): T82.838A - Hemorrhage due to vascular prosthetic devices, implants and grafts, initial encounter Condition: Stable Prescriptions: No Action acetaminophen [Tylenol] 325 mg capsule 650 mg PO PRN PRN (Reason: Pain) RF: 0 alprazolam 0.25 mg tablet 0.25 mg PO DAILY PRN (Reason: Anxiety) RF: 0 amlodipine 10 mg tablet 10 mg PO DAILY RF: 0 omeprazole 40 mg capsule,delayed release(DR/EC) 40 mg PO DAILY RF: 0 Tradjenta 5 mg tablet 5 mg PO DAILY RF: 0 metoprolol succinate 25 mg Tablet Extended Release 24 Hr 12.5 mg PO DAILY RF: 0 furosemide 40 mg tablet 40 mg PO DAILY RF: 0 ondansetron HCl 4 mg tablet 4 mg PO Q8H PRN (Reason: Nausea) RF: 0 calcium acetate(phosphat bind) 667 mg capsule See Rx Instructions .ROUTE .COMPLEX RF: 0 Ocuvite with Lutein 1,000 unit-200 mg-60 unit-2 mg Tablet 1 tab PO BID RF: 0 RenaPlex-D 800 mcg-12.5 mg -2,000 unit tablet 1 tab PO QPM RF: 0 cholecalciferol (vitamin D3) [Vitamin D3] 50 mcg (2,000 unit) Tablet 50 mcg PO DAILY RF: 0 multivitamin Tablet 1 tab PO DAILY RF: 0 atorvastatin 40 mg Tablet 40 mg PO BEDTIME RF: 0 Plavix 75 mg Tablet 75 mg PO DAILY RF: 0 lidocaine-prilocaine 2.5-2.5 % Cream 1 applic topical DAILY PRN (Reason: Pain) RF: 0 Nitrostat 0.4 mg Tablet, Sublingual 0.4 mg SUBLINGUAL Q5M PRN (Reason: Chest Pain) RF: 0 aspirin 81 mg Tablet,Chewable 81 mg PO DAILY RF: 0 mirtazapine 15 mg Tablet 15 mg PO BEDTIME PRN (Reason: Restless Leg(S)) RF: 0 Discharge Orders: Discharge Order (Routine); Ordered 11/17/19 Ordered By: Brian Sanchez Referrals: Magdiel Amador MD [Primary Care Provider] - 1-3 days Discharge Diet: Advance as tolerated Discharge Activity: Resume usual activity Patient Instructions: AV Fistula Care Discharge Date/Time: 11/17/19 17:37 Coding Level of Care Code ED Packager And Strapper for Chg Fwd Exam Comprehensive
[2019-11-17 15:48] LABS: Hematocrit 36.6 % (37.0-47.0); Hemoglobin 11.6 g/dL (11.5-15.3); Lymphocytes # 0.6 10^3/uL (0.8-4.8); Mean Corpuscular HGB Conc 31.7 g/dL (30.0-36.0); Mean Corpuscular Hemoglobin 30.4 pg (28.0-34.0); Mean Corpuscular Volume 95.8 fL (81-99); Mean Platelet Volume 11.3 fL (7.4-10.4); Monocytes # 0.2 10^3/uL (0.2-0.9); Monocytes % 10.9 %; Neutrophils % 63.6 %; Nucleated Red Blood Cells % 0 %; Platelet Count 150 10^3/cmm (130-400); Red Blood Count 3.82 10^6/uL (4.1-5.3); Red Cell Distribution Width 13.5 % (12.1-15.1); White Blood Count 2.2 10^3/uL (4.0-10.0)
[2019-11-17 15:49] VITALS: BP 148/42; PULSE 78; RESP 18; O2SAT 94
[2019-11-17 15:55] LABS: INR 0.83 (0.8-1.2)
[2019-11-17 16:57] LABS: Alanine Aminotransferase 24 U/L (0-33); Albumin Level 3.8 g/dL (3.5-5.2); Alkaline Phosphatase 82 IU/L (35-105); Aspartate Amino Transferase 60 U/L (0-32); Blood Urea Nitrogen 15 mg/dL (8-23); Calcium 8.7 mg/dL (8.5-10.5); Carbon Dioxide 29 mmol/L (22-29); Chloride 97 mmol/L (98-107); Globulin 2.3 g/dL (1.3-4.6); Glucose 85 mg/dL (65-115); Osmolality Calculated 288 mOsm/kg (285-295); Sodium 139 mmol/L (136-145); Total Bilirubin 0.2 mg/dL (0.15-1.2); Total Protein 6.1 g/dL (6.6-8.7)
[2019-11-17 16:58] LABS: Anion Gap 16.6 (5-19); Potassium 3.6 mmol/L (3.5-5.1)
[2019-11-17 17:35] VITALS: BP 172/61; PULSE 72; RESP 18; TEMP 36.6; O2SAT 95
[2019-11-19 13:13] LABS: Quest SARS-CoV-2 RNA DETECTED (NOT DETECTED)
--- NOTE | 2019-11-19 16:41 | PC.NURSE ---
pt was contacted and given the results of her covid test
== END 2019-11-17 17:37 | disposition home or self-care (01) ==
PROVIDERS: Emergency Provider Emergency Medicine; PCP Family Medicine
DX: T82.838A Hemorrhage due to vascular prosthetic devices, implants and grafts, initial encounter (principal); Z79.02 Long term (current) use of antithrombotics/antiplatelets; Z79.82 Long term (current) use of aspirin; Z87.891 Personal history of nicotine dependence; J44.9 Chronic obstructive pulmonary disease, unspecified; I25.10 Atherosclerotic heart disease of native coronary artery without angina pectoris; I13.2 Hypertensive heart and chronic kidney disease with heart failure and with stage 5 chronic kidney disease, or end stage renal disease; E11.22 Type 2 diabetes mellitus with diabetic chronic kidney disease; N18.6 End stage renal disease; I50.30 Unspecified diastolic (congestive) heart failure; Z99.2 Dependence on renal dialysis; U07.1 COVID-19
CPT/HCPCS: 12345; 36415; 71045; 80053; 85025; 85610; 87635; 99281; 99283

== ENCOUNTER 2019-11-25 15:42 | Outpatient (CLI) | payer MEDICARE, MEDICAID, SELFPAY ==
[2019-11-25 15:58] LABS: Eosinophils % 1.1 %; Hematocrit 29.2 % (37.0-47.0); Hemoglobin 9.3 g/dL (11.5-15.3); Lymphocytes # 0.7 10^3/uL (0.8-4.8); Lymphocytes % 19.8 %; Mean Corpuscular HGB Conc 31.8 g/dL (30.0-36.0); Mean Corpuscular Volume 94.2 fL (81-99); Mean Platelet Volume 11.8 fL (7.4-10.4); Monocytes # 0.3 10^3/uL (0.2-0.9); Monocytes % 7.4 %; Neutrophils % 71.4 %; Nucleated Red Blood Cells % 0 %; Platelet Count 220 10^3/cmm (130-400); Red Cell Distribution Width 13.7 % (12.1-15.1); White Blood Count 3.6 10^3/uL (4.0-10.0)
== END 2019-11-25 15:43 | disposition home or self-care (01) ==
LOC: LAB 15:46
PROVIDERS: PCP Family Medicine; Visit Provider Family Medicine
DX: I50.9 Heart failure, unspecified (principal); D63.1 Anemia in chronic kidney disease
CPT/HCPCS: 85025

== ENCOUNTER 2019-11-29 11:57 | Outpatient (CLI) | payer MEDICARE, MEDICAID, SELFPAY ==
[2019-11-29 12:59] LABS: Hematocrit 30.2 % (37.0-47.0); Hemoglobin 9.4 g/dL (11.5-15.3); Mean Corpuscular HGB Conc 31.1 g/dL (30.0-36.0); Mean Corpuscular Hemoglobin 29.8 pg (28.0-34.0); Mean Corpuscular Volume 95.9 fL (81-99); Mean Platelet Volume 11.1 fL (7.4-10.4); Nucleated Red Blood Cells % 0 %; Platelet Count 332 10^3/cmm (130-400); Red Blood Count 3.15 10^6/uL (4.1-5.3); Red Cell Distribution Width 13.9 % (12.1-15.1); White Blood Count 7.3 10^3/uL (4.0-10.0)
== END 2019-11-29 11:58 | disposition home or self-care (01) ==
LOC: LAB 11:57
PROVIDERS: PCP Family Medicine; Visit Provider Internal Medicine Nephrology
DX: D64.9 Anemia, unspecified (principal)
CPT/HCPCS: 36415; 85025

== ENCOUNTER 2019-12-02 17:53 | Outpatient (CLI) | payer MEDICARE, MEDICAID, SELFPAY | END 2019-12-02 17:54 | disposition home or self-care (01) | LOC: LAB 17:53 | PROVIDERS: PCP Family Medicine; Visit Provider Surgery | DX: R19.7 Diarrhea, unspecified (principal) | CPT/HCPCS: 83630; 87493; 87506 ==

== ENCOUNTER → 2019-12-27 14:12 | Outpatient (BNVA) | payer MEDICARE, MEDICAID, SELFPAY | PROVIDERS: PCP Family Medicine; Visit Provider Surgery | DX: Z11.59 Encounter for screening for other viral diseases (principal); K92.1 Melena | CPT/HCPCS: 87635 ==

== ENCOUNTER 2019-12-30 08:35 | Day surgery (SDC) | payer MEDICARE, MEDICAID, SELFPAY ==
[2019-12-28 10:17] VITALS: BMI 21.1
[2019-12-30 08:45] VITALS: BP 147/71; PULSE 98; RESP 18; TEMP 36.4; O2SAT 97
[2019-12-30] MEDS: sodium chloride 0.9% 1,000 ML 30 ML IV (09:05)
[2019-12-30 09:08] LABS: Glucose Point of Care 102 mg/dL (70-110)
--- NOTE | 2019-12-30 09:15 | ANES.PREANE2 ---
Pre-Anesthetic Assessment Pre-Anesthetic Assessment: Height/Weight: Height 1.55 m Weight 50.802 kg Temp Pulse Resp BP Pulse Ox 97.5 F L 98 18 147/71 97 12/30/19 08:45 12/30/19 08:45 12/30/19 08:45 12/30/19 08:45 12/30/19 08:45 Preop Diagnosis: Hematochezia Proposed Procedure: Operation Date: 12/30/19 09:45 Proposed Procedures p Colonoscopy 12355 K92.1(Not Applicable) - Harish Bishop MD Familial anesthetic complications: NOne Was Beta Garland taken within 24 hours: N/A Last intake: Intake Last Liquid Date 12/29/19 Last Liquid Time 18:00 Last Solid Date 12/29/19 Last Solid Time 08:00 Social: Social History: No alcohol and No tobacco Comment: former smoker Exam: Pre-Anes Outpt Exam: alert, oriented x 3, clear to auscultation bilaterally and regular rate & rhythm Airway: Cervical ROM: WNL MP: 2 Dentition: False Pulmonary: Comments: COVID psoitive 11/16, repeat PCR negative, no further symptoms CV/HEM: CV/HEM: Afib, CAD (CHE placed on 09/20 - still on plavix) and HTN Comments: pacemaker, : : Chronic renal failure (L AVF) GI: GI: GERD Metabolic: Metabolic: DM Neuropsych: Comments: Carotid [place] (B/L) Anesthetic Plan: ASA status: 4 Anesthesia: MAC Risk of > 500 ml blood loss (7ml/kg in children): No Meds/Allergies Current Medications: Current Medications Generic Name Dose Route Start Last Admin Trade Name Freq PRN Reason Stop Dose Admin Sodium Chloride 1,000 mls @ 30 ml s/hr 12/30/19 08:45 12/30/19 09:05 Sodium Chloride 0.9% IV 12/31/19 08:44 30 mls/hr .Q24H ROSIBEL Administration PFSH Anesthesia PFSH: Medical History Anemia Carotid stenosis COPD (chronic obstructive pulmonary disease) Coronary artery disease 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 Diabetes Diastolic congestive heart failure End stage renal disease Essential hypertension GERD (gastroesophageal reflux disease) Intermittent atrial fibrillation Interstitial lung disease Third degree heart block Status post pacemaker placement Surgical History Hemodialysis access site with arteriovenous graft History of laparoscopic cholecystectomy History of tubal ligation S/P hemodialysis catheter insertion Status post colonoscopy Family History Mother Cancer Lung cancer Father Diabetes Other CAD (coronary artery disease) Denies family history of Anesthesia complication Bleeding disorder Social History Smoking and tobacco status: former smoker Alcohol intake: never Data Anesthesia Other Labs: Laboratory Results - last 48 hr 12/30/19 08:59 POC Glucose 102 Cardiac Studies: Holter Monitor 10/14/19
--- NOTE | 2019-12-30 09:29 | PC.NURSE ---
Pt stated she cannot have BP or STICKS to left arm r/t dialysis port. Sign placed above bed. All staff aware.
--- NOTE | 2019-12-30 10:05 | W.PM.OPSUD ---
Surgery/Procedure H&P Update DATE OF PROCEDURE: December 30, 2019 DATE H&P PERFORMED: 11/30/19 H&P UPDATE INFORMATION: I have reviewed H&P completed within last 30 days, I have examined patient prior to procedure and No changes to prior documentation PREOP DIAGNOSIS: Hematochezia PLANNED PROCEDURE: Operation Date: 12/30/19 09:45 Proposed Procedures p Colonoscopy 03346 K92.1(Not Applicable) - Harish Bishop MD
[2019-12-30 10:36] VITALS: BP 128/42; PULSE 79; RESP 18; TEMP 36.1; O2SAT 99
[2019-12-30 10:58] VITALS: BP 149/49; PULSE 70; RESP 18; O2SAT 95
--- NOTE | 2019-12-30 11:10 | ANE.PACU2 ---
Inpatient post-anesthesia follow up: Airway intact: Yes Vital signs: Temperature 97 F Pulse Rate 70 Respiratory Rate 18 Blood Pressure 149/49 Pulse Oximetry 95 Oxygen Delivery Me thod Room Air Oxygen Flow Rate Fraction of Inspir ed Oxygen Hydration adequate: Yes Nausea and vomiting: No Pain level: 1 Mental status: Baseline
== END 2019-12-30 11:09 | disposition home or self-care (01) ==
PROVIDERS: PCP Family Medicine; Visit Provider Surgery
PROC: 0DJD8ZZ Inspection of Lower Intestinal Tract, Via Natural or Artificial Opening Endoscopic (ICD-10-PCS; CPT 45378; principal; 2019-12-30 09:45)
DX: K92.1 Melena (principal); K64.8 Other hemorrhoids; I48.91 Unspecified atrial fibrillation; I25.10 Atherosclerotic heart disease of native coronary artery without angina pectoris; Z79.02 Long term (current) use of antithrombotics/antiplatelets; L21.9 Seborrheic dermatitis, unspecified; Z87.891 Personal history of nicotine dependence; J44.9 Chronic obstructive pulmonary disease, unspecified; E11.22 Type 2 diabetes mellitus with diabetic chronic kidney disease; I13.2 Hypertensive heart and chronic kidney disease with heart failure and with stage 5 chronic kidney disease, or end stage renal disease; I50.30 Unspecified diastolic (congestive) heart failure; N18.6 End stage renal disease
CPT/HCPCS: 12345; 36416; 82962; G0121; J7030

== ENCOUNTER 2020-07-31 10:25 | Emergency (ER) | payer MEDICARE, MEDICAID, SELFPAY ==
[2020-07-31 10:41] VITALS: BP 174/65; PULSE 84; RESP 18; TEMP 36.7; O2SAT 95; BMI 21.7
--- NOTE | 2020-07-31 11:49 | W.ED.ANXIETY ---
HPI - Anxiety General: Chief Complaint: Anxiety Stated Complaint: anxious, cold sweats, shaking Time Seen by Provider: 07/31/20 11:44 History of Present Illness: HPI narrative: 85-year-old female who comes in today with a complaint of generally not feeling well states she is anxious shaking feels like her nerves are shot she has been out of her Xanax for couple days although she tells me she only takes it occasionally her daughter is in attendance with her states she has been fidgeting with her hands like she is rolling something up into a ball. She is due for dialysis today she is end-stage renal disease patient gets dialysis Friday and Friday. She is not had any chest pain she has had a little bit of productive cough of clear sputum which is her normal baseline. She is not had any vomiting or diarrhea no dysuria urgency or frequency. MD complaint: anxiety Onset (ago): day(s) Severity: mild Quality: constant Place: home Provoking factors: emotional stress Relieving factors: nothing Exacerbating factors: nothing Associated symptoms: Reports anorexia, malaise and weakness; Deny chest pain, chills, confusion, diaphoresis, fever(s), headache(s), nausea, palpitations, short of breath, syncope or vomiting Review of Systems Const: Reports: malaise; Denies: fever(s), chills or diaphoresis Card: Denies: chest pain, palpitations or syncope GI: Denies: nausea or vomiting Neuro: Denies: headache(s) or confusion PFSH ED PFSH: Medical History Anemia Carotid stenosis COPD (chronic obstructive pulmonary disease) Coronary artery disease 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 Diabetes Diastolic congestive heart failure End stage renal disease Essential hypertension GERD (gastroesophageal reflux disease) Intermittent atrial fibrillation Interstitial lung disease Third degree heart block Status post pacemaker placement Surgical History Hemodialysis access site with arteriovenous graft History of laparoscopic cholecystectomy History of tubal ligation S/P hemodialysis catheter insertion Status post colonoscopy (12/30/19) Family History Mother Cancer Lung cancer Father Diabetes Other CAD (coronary artery disease) Denies family history of Anesthesia complication Bleeding disorder Social History Smoking and tobacco status: former smoker Alcohol intake: never Physical Exam Const: COMMON NORMALS: no acute distress GENERAL APPEARANCE: cooperative and comfortable HENMT: COMMON NORMALS: normocephalic, atraumatic, hearing grossly normal bilaterally and external ears normal HEAD & SCALP: normocephalic and atraumatic EXTERNAL EAR: Yes external ears normal Eye: COMMON NORMALS: Equal, round and reactive pupils present, EOMs intact bilaterally, conjunctivae normal and no scleral icterus CONJUNCTIVA: Yes conjunctivae normal PUPIL: Yes Equal, round and reactive pupils present Neck/C-Spine: COMMON NORMALS: full ROM, no lymphadenopathy, supple and no JVD Lymph: LYMPHATIC: no lymphadenopathy noted and no lymphedema noted Resp: COMMON NORMALS: normal respiratory effort, No retractions, No use of accessory muscles and clear to auscultation bilaterally AUSCULTATION: clear to auscultation bilaterally Cardio: COMMON NORMALS: no JVD, regular rate, regular rhythm and No murmurs present (Cardio) RATE: regular rate RHYTHM: regular rhythm GI: COMMON NORMALS: Soft to palpation and No hepatosplenomegaly present AUSCULTATION: Yes normoactive bowel sounds PALPATION: Yes Soft to palpation, No Tenderness to palpation present (GI), No Guarding due to palpation present (GI) and Yes No hepatosplenomegaly present Extremity: COMMON NORMALS: normal to inspection, capillary refill normal, no clubbing, cyanosis or edema, no calf tenderness and no pedal edema NARRATIVE EXTREMITY EXAM: Fistula intact in left arm with no sign of breakdown or ulceration excessive bruising or infection Skin: COMMON NORMALS: no rashes or lesions noted GENERAL SKIN EXAM: no rashes or lesions noted Course Vital Signs: Vital signs: Vital Signs Temperature 98.1 F 07/31/20 10:41 Pulse Rate 83 07/31/20 13:34 Respiratory Rate 15 07/31/20 14:37 Blood Pressure 164/50 07/31/20 14:37 Pulse Oximetry 97 07/31/20 14:37 MDM - Anxiety MDM Narrative: Medical decision making narrative: Questionable pneumonitis on right lower lobe and start on some antibiotics. Some of this may be due to the withdrawal from Xanax and anxiety issues. Clinically she appears well started on the Lovenox however go to dialysis directly from the ER that we have already called them and they are planning to complete her dialysis run is usually scheduled. Lab Data: Labs: Lab Results 07/31/20 07/31/20 07/31/20 Range/Units 12:20 12:20 12:20 WBC 5.5 (4.0-10.0) 10^3/ uL RBC 3.36 L (4.1-5.3) 10^6/u L Hgb 10.7 L (11.5-15.3) g/dL Hct 30.0 L (37.0-47.0) % MCV 89.3 (81-99) fL MCH 31.8 (28.0-34.0) pg MCHC 35.7 (30.0-36.0) g/dL RDW 13.2 (12.1-15.1) % Plt Count 226 (130-400) 10^3/c mm MPV 10.7 H (7.4-10.4) fL Neut % (Auto) 64.5 % Lymph % (Auto) 21.0 % [place] % (Auto) 10.9 % Eos % (Auto) 2.0 % Baso % (Auto) 1.4 % Neut # (Auto) 3.56 (1.8-7.7) 10^3/u L Lymph # (Auto) 1.2 (0.8-4.8) 10^3/u L [place] # (Auto) 0.6 (0.2-0.9) 10^3/u L Eos # (Auto) 0.1 (0.0-0.8) 10^3/u L Baso # (Auto) 0.1 (0.0-0.1) 10^3/u L Nucleated RBC % (a uto) 0 % Nucleated RBCs # 0.0 /100WBC Sodium Cancelled Potassium Cancelled Chloride Cancelled Carbon Dioxide Cancelled Anion Gap Cancelled BUN Cancelled Creatinine Cancelled GFR Calculation Cancelled Glucose Cancelled Calculated Osmolal ity Cancelled Calcium Cancelled Total Bilirubin Cancelled AST Cancelled ALT Cancelled Alkaline Phosphata se Cancelled Creatine Kinase Cancelled Troponin T Baselin e (0-10) ng/L Total Protein Cancelled Albumin Cancelled Globulin Cancelled Urine Color (Yellow) Urine Appearance (CLEAR) Urine pH (5-7) Ur Specific Gravit y (1.005-1.030) Urine Protein (Negative) Urine Glucose (UA) (Normal) Urine Ketones (Negative) Urine Blood (Negative) Urine Nitrate (Negative) Urine Bilirubin (Negative) Urine Urobilinogen (Negative) mg/dL Ur Leukocyte Pilar ase (Negative) Urine RBC (0-2) /hpf Urine WBC (0-5) /hpf Ur Squamous Epith Cells (0-5) /hpf Amorphous Sediment Urine Bacteria (NONE) /hpf Serum Ketones Cancelled 07/31/20 07/31/20 07/31/20 Range/Units 12:20 12:45 13:40 WBC (4.0-10.0) 10^3/ uL RBC (4.1-5.3) 10^6/u L Hgb (11.5-15.3) g/dL Hct (37.0-47.0) % MCV (81-99) fL MCH (28.0-34.0) pg MCHC (30.0-36.0) g/dL RDW (12.1-15.1) % Plt Count (130-400) 10^3/c mm MPV (7.4-10.4) fL Neut % (Auto) % Lymph % (Auto) % [place] % (Auto) % Eos % (Auto) % Baso % (Auto) % Neut # (Auto) (1.8-7.7) 10^3/u L Lymph # (Auto) (0.8-4.8) 10^3/u L [place] # (Auto) (0.2-0.9) 10^3/u L Eos # (Auto) (0.0-0.8) 10^3/u L Baso # (Auto) (0.0-0.1) 10^3/u L Nucleated RBC % (a uto) % Nucleated RBCs # /100WBC Sodium Potassium Chloride Carbon Dioxide Anion Gap BUN Creatinine GFR Calculation Glucose Calculated Osmolal ity Calcium Total Bilirubin AST ALT Alkaline Phosphata se Creatine Kinase Troponin T Baselin e 44 H (0-10) ng/L Total Protein Albumin Globulin Urine Color Yellow (Yellow) Urine Appearance Clear (CLEAR) Urine pH 7 (5-7) Ur Specific Gravit y 1.010 (1.005-1.030) Urine Protein 1+ H (Negative) Urine Glucose (UA) Norm (Normal) Urine Ketones Negative (Negative) Urine Blood Neg (Negative) Urine Nitrate Negative (Negative) Urine Bilirubin Neg (Negative) Urine Urobilinogen Norm (Negative) mg/dL Ur Leukocyte Pilar ase Negative (Negative) Urine RBC 0-4 H (0-2) /hpf Urine WBC 5-10 H (0-5) /hpf Ur Squamous Epith Cells 5-10 H (0-5) /hpf Amorphous Sediment Not Reportable Urine Bacteria Trace (NONE) /hpf Serum Ketones Negative 07/31/20 Range/Units 13:40 WBC (4.0-10.0) 10^3/ uL RBC (4.1-5.3) 10^6/u L Hgb (11.5-15.3) g/dL Hct (37.0-47.0) % MCV (81-99) fL MCH (28.0-34.0) pg MCHC (30.0-36.0) g/dL RDW (12.1-15.1) % Plt Count (130-400) 10^3/c mm MPV (7.4-10.4) fL Neut % (Auto) % Lymph % (Auto) % [place] % (Auto) % Eos % (Auto) % Baso % (Auto) % Neut # (Auto) (1.8-7.7) 10^3/u L Lymph # (Auto) (0.8-4.8) 10^3/u L [place] # (Auto) (0.2-0.9) 10^3/u L Eos # (Auto) (0.0-0.8) 10^3/u L Baso # (Auto) (0.0-0.1) 10^3/u L Nucleated RBC % (a uto) % Nucleated RBCs # /100WBC Sodium 140 Potassium 4.0 Chloride 102 Carbon Dioxide 22 Anion Gap 20.0 H BUN 36 H Creatinine 5.1 H GFR Calculation Not Reportable Glucose 102 Calculated Osmolal ity 299 H Calcium 8.5 Total Bilirubin 0.3 AST 16 ALT 11 Alkaline Phosphata se 73 Creatine Kinase 74 Troponin T Baselin e (0-10) ng/L Total Protein 6.8 Albumin 4.0 Globulin 2.8 Urine Color (Yellow) Urine Appearance (CLEAR) Urine pH (5-7) Ur Specific Gravit y (1.005-1.030) Urine Protein (Negative) Urine Glucose (UA) (Normal) Urine Ketones (Negative) Urine Blood (Negative) Urine Nitrate (Negative) Urine Bilirubin (Negative) Urine Urobilinogen (Negative) mg/dL Ur Leukocyte Pilar ase (Negative) Urine RBC (0-2) /hpf Urine WBC (0-5) /hpf Ur Squamous Epith Cells (0-5) /hpf Amorphous Sediment Urine Bacteria (NONE) /hpf Serum Ketones Discharge Plan Discharge Patient Disposition: Home Clinical Impression: Pneumonitis, End stage renal disease, Essential hypertension, Acute anxiety Condition: Stable Prescriptions: New levofloxacin 500 mg tablet 500 mg PO DAILY 7 Days RF: 0 No Action alprazolam 0.25 mg tablet 0.25 mg PO DAILY PRN (Reason: Anxiety) RF: 0 omeprazole 40 mg capsule,delayed release(DR/EC) 40 mg PO DAILY RF: 0 Tradjenta 5 mg tablet 5 mg PO DAILY RF: 0 metoprolol succinate 25 mg Tablet Extended Release 24 Hr 12.5 mg PO DAILY RF: 0 furosemide 40 mg tablet 20 mg PO BID RF: 0 amlodipine 5 mg tablet 7.5 mg PO DAILY RF: 0 Tylenol Extra Strength 500 mg Tablet 500 - 1,000 mg PO PRN RF: 0 Eye-Vites Tablet 1 tab PO DAILY RF: 0 calcium acetate(phosphat bind) 667 mg capsule See Rx Instructions .ROUTE .COMPLEX RF: 0 Tums 1 - 2 tab PO PRN RF: 0 ondansetron HCl 4 mg tablet 4 mg PO Q8H PRN (Reason: Nausea) RF: 0 RenaPlex-D 800 mcg-12.5 mg -2,000 unit tablet 1 tab PO QPM RF: 0 cholecalciferol (vitamin D3) [Vitamin D3] 50 mcg (2,000 unit) Tablet 50 mcg PO DAILY RF: 0 multivitamin Tablet 1 tab PO DAILY RF: 0 atorvastatin 40 mg Tablet 40 mg PO BEDTIME RF: 0 clopidogrel [Plavix] 75 mg Tablet 75 mg PO DAILY RF: 0 nitroglycerin [Nitrostat] 0.4 mg Tablet, Sublingual 0.4 mg SUBLINGUAL Q5M PRN (Reason: Chest Pain) RF: 0 aspirin 81 mg Tablet,Chewable 81 mg PO DAILY RF: 0 Discharge Orders: Discharge ED (Routine); Ordered 07/31/20 Ordered By: Jalen Parks Referrals: Magdiel Amador MD [Primary Care Provider] - Discharge Diet: Usual diet Discharge Activity: Increase activity as tolerated Patient Instructions: Opioid Safety Activity Restrictions/Additional Instructions: Procedure directly to the dialysis clinic after leaving here for her usual run of dialysis. Coding Level of Care Code ED Stacker Tender for Elizabeth Lewis
[2020-07-31 11:56] VITALS: PULSE 69
--- NOTE | 2020-07-31 11:56 | ECG_ITS ---
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 Measurements Intervals [place] Rate: 69 P: TN: QRS: -64 QRSD: 170 T: 105 QT: 463 QTc: 497 Interpretive Statements ELECTRONIC VENTRICULAR PACEMAKER Compared to ECG 10/01/2019 11:36:26 No significant changes Electronically Signed On 07-31-2020 12:30:43 CDT by Pedro Silvestre M.D. [email or web address] children's [email or web address] Thermal [email or web address]/store/[id number]
--- NOTE | 2020-07-31 11:56 | XRR_ITS ---
PROCEDURE INFORMATION: Exam: XR Chest Exam date and time: 07/31/2020 11:58 AM Age: 85 years old Clinical indication: Cough and dyspnea; Prior surgery; Surgery type: Pacemaker; Patient HX: No chest complaints per patient, anxiety; Additional info: Dyspnea/cough TECHNIQUE: Imaging protocol: XR of the chest. Views: 1 view. COMPARISON: CR XR chest 1V portable [id number] 11/17/2019 3:53 PM FINDINGS: Tubes, catheters and devices: A cardiac pacing device is again seen projecting over the left chest. Surgical clips are seen projecting over the left axillary region. Lungs: The lungs are somewhat hyperinflated with increased interstitial markings, likely representing COPD. There is a patchy airspace opacity along the medial aspect of the right lower lung, in association with indistinctness of the right heart border and medial right hemidiaphragm, concerning for pneumonia. Pleural spaces: Unremarkable. No pleural effusion. No pneumothorax. Heart/Mediastinum: Stable cardiomediastinal silhouette. Vasculature: Aortic arch atherosclerotic calcifications seen. Bones/joints: Surgical changes of the right shoulder joint seen. No acute osseous injury identified. XR/XR chest 1V portable [id number] IMPRESSION: Hazy airspace opacity along the medial aspect of the right lower lung, concerning for right middle/lower lobe pneumonia. COPD changes.
[2020-07-31 12:34] VITALS: BP 161/46; PULSE 60; RESP 18; O2SAT 99
[2020-07-31 13:07] LABS: Basophils # 0.1 10^3/uL (0.0-0.1); Basophils % 1.4 %; Eosinophils # 0.1 10^3/uL (0.0-0.8); Hemoglobin 10.7 g/dL (11.5-15.3); Lymphocytes # 1.2 10^3/uL (0.8-4.8); Mean Corpuscular HGB Conc 35.7 g/dL (30.0-36.0); Mean Corpuscular Hemoglobin 31.8 pg (28.0-34.0); Mean Corpuscular Volume 89.3 fL (81-99); Mean Platelet Volume 10.7 fL (7.4-10.4); Monocytes # 0.6 10^3/uL (0.2-0.9); Monocytes % 10.9 %; Neutrophils # 3.56 10^3/uL (1.8-7.7); Neutrophils % 64.5 %; Nucleated Red Blood Cells % 0 %; Platelet Count 226 10^3/cmm (130-400); Red Blood Count 3.36 10^6/uL (4.1-5.3); Red Cell Distribution Width 13.2 % (12.1-15.1); White Blood Count 5.5 10^3/uL (4.0-10.0)
[2020-07-31 13:19] LABS: Add Urine Microscopic? YES; Bilirubin Urine Neg (Negative); Blood Urine Neg (Negative); Glucose Urine UA Norm (Normal); Ketones Urine Negative (Negative); Leukocyte Esterase Urine Negative (Negative); Nitrate Urine Negative (Negative); Protein Urine 1+ (Negative); Urine Appearance Clear (CLEAR); Urine Color Yellow (Yellow); Urobilinogen Urine Norm (Negative); pH Urine 7 (5-7)
[2020-07-31 13:20] LABS: Troponin(5th) Baseline 44 ng/L (0-10)
[2020-07-31 13:34] VITALS: BP 152/62; PULSE 83; RESP 18; O2SAT 100
[2020-07-31 13:35] LABS: Bacteria Urine TRACE /hpf; RBC Urine 0-4 /hpf (0-2)
[2020-07-31 13:54] LABS: Ketone (Acetest) Serum Negative (Negative)
--- NOTE | 2020-07-31 13:56 | ECG_ITS ---
[facility] Test Date: 2020-07-31 Pat Name: Galina Saba Department: Room: Gender: Female Configuration Developer: : 1935 Requested By: Jalen Soliman Order Number: [id number] Milad MD: Pedro Silvestre M.D. Measurements Intervals [place] Rate: 82 P: 72 [place]: 208 QRS: -63 QRSD: 167 T: 97 QT: 447 QTc: 523 Interpretive Statements ELECTRONIC VENTRICULAR PACEMAKER ABNORMAL RHYTHM ECG Compared to ECG 07/31/2020 12:10:05 No significant changes Electronically Signed On 07-31-2020 19:10:02 CDT by Pedro Silvestre M.D. [id number]
[2020-07-31 14:00] VITALS: BP 164/50; RESP 15; O2SAT 97
[2020-07-31 14:09] LABS: Alanine Aminotransferase 11 U/L (0-33); Alkaline Phosphatase 73 IU/L (35-105); Aspartate Amino Transferase 16 U/L (0-32); Blood Urea Nitrogen 36 mg/dL (8-23); Calcium 8.5 mg/dL (8.5-10.5); Carbon Dioxide 22 mmol/L (22-29); Chloride 102 mmol/L (98-107); Creatine Phosphokinase 74 U/L (26-192); Globulin 2.8 g/dL (1.3-4.6); Glucose 102 mg/dL (65-115); Osmolality Calculated 299 mOsm/kg (285-295); Sodium 140 mmol/L (136-145); Total Bilirubin 0.3 mg/dL (0.15-1.2); Total Protein 6.8 g/dL (6.6-8.7)
--- NOTE | 2020-07-31 14:12 | PC.PHAR ---
pt states she has homehealth-taked to pts granddaughter nickolas also director of [facility] states the pt takes the medications entered-medications entered are meds the granddaughter verified,ext med history shows and what pt verified-pt is getting samples from dr pastrana office for tradjenta 5mg daily
[2020-07-31 14:37] VITALS: BP 164/50; RESP 15; O2SAT 97
[2020-07-31 14:58] LABS: Troponin 5 2HR 50.38 ng/L (0-10); Troponin 5 2HR Delta 6.38 ABS# (0-10)
== END 2020-07-31 14:39 | disposition home or self-care (01) ==
PROVIDERS: Emergency Provider Family Medicine; PCP Family Medicine
DX: F41.9 Anxiety disorder, unspecified (principal); J44.0 Chronic obstructive pulmonary disease with (acute) lower respiratory infection; J18.9 Pneumonia, unspecified organism; I13.2 Hypertensive heart and chronic kidney disease with heart failure and with stage 5 chronic kidney disease, or end stage renal disease; I50.30 Unspecified diastolic (congestive) heart failure; E11.22 Type 2 diabetes mellitus with diabetic chronic kidney disease; N18.6 End stage renal disease; Z79.02 Long term (current) use of antithrombotics/antiplatelets; Z79.82 Long term (current) use of aspirin; I25.10 Atherosclerotic heart disease of native coronary artery without angina pectoris; Z87.891 Personal history of nicotine dependence
CPT/HCPCS: 36415; 71045; 80053; 81001; 82009; 82550; 84484; 85025; 93005; 99284

== ENCOUNTER 2020-08-14 09:07 | Outpatient (CLI) | payer MEDICARE, MEDICAID, SELFPAY ==
--- NOTE | 2020-08-14 09:11 | FL_ITS ---
WS: [id number] MODIFIED BARIUM SWALLOW HISTORY: Other dysphagia FLUOROSCOPY TIME: 1.7 minutes. Modified barium swallow was performed by the speech pathologist. Fluoroscopy was provided with the pa tient in a lateral projection. Multiple food consistencies were provided. Patient swallowed all food consistencies without difficulty. No aspiration. One episode of laryngeal penetration with thin liquids. There is mild pharyngeal coating with the barium which improved with d ouble swallows. Barium collected minimally in the vallecula. Patient swallowed the barium tablet with out difficulty. Also noted is moderate dysmotility and tertiary contractions of nearly entire esophagus. No high-grad e obstruction. FL/FL barium swallow modifd [id number] IMPRESSION: 1. No aspiration. 2. Mild pooling of the barium in the vallecula. 3. Moderate esophageal dysmotility. No esophageal obstruction. Please see speech therapist report also for recommendations.
== END 2020-08-14 09:08 | disposition home or self-care (01) ==
LOC: RAD 09:10
PROVIDERS: PCP Family Medicine; Visit Provider Family Medicine
DX: T17.920A Food in respiratory tract, part unspecified causing asphyxiation, initial encounter (principal); R13.19 Other dysphagia; X58.XXXA Exposure to other specified factors, initial encounter
CPT/HCPCS: 74230; 92611

== ENCOUNTER 2020-11-21 10:38 | Outpatient (CLI) | payer MEDICARE, MEDICAID, SELFPAY ==
--- NOTE | 2020-11-21 11:26 | CT_ITS ---
WS: [id number] CT HEAD TECHNIQUE: Noncontrast CT of the head obtained from the skullbase to the vertex. CLINICAL INFORMATION: ACUTE PSYCHOSIS COMPARISON: None. DLP: 925.[address] scans at [facility] use at least one of these dose optimization techniques: automated e xposure control; mA and/or kV adjustment per patient size (includes targeted exams where dose is matc hed to clinical indication); or iterative reconstruction. FINDINGS: No evidence of intracranial hemorrhage or mass effect. Ventricular system and basal cisterns are guan nt. Mild small vessel changes with mild parenchymal volume loss. 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 No extra-axial fluid collections. No evidence of mass or mass effect. Paranasal sinuses and mastoid air cells are well aerated. .Normal visualized soft tissues. Intracrani al vascular calcification. CT/CT head wo con* [id number] IMPRESSION: 1. No evidence of intracranial hemorrhage or mass effect. 2. Mild small vessel changes. Moderate parenchymal volume loss. 3. Intracranial vascular calcification. 4. No acute intracranial findings.
== END 2020-11-21 10:39 | disposition home or self-care (01) ==
PROVIDERS: PCP Family Medicine; Visit Provider Family Medicine
DX: F23 Brief psychotic disorder (principal)
CPT/HCPCS: 70450

== ENCOUNTER 2021-01-02 12:43 | Outpatient (CLI) | payer MEDICARE, MEDICAID, SELFPAY ==
[2021-01-02 13:40] LABS: D Dimer 1.73 ug/mIFEU (0-0.59)
[2021-01-02 13:46] LABS: NT Pro B Type Natriuretic Pept 27750 pg/mL (0-450)
== END 2021-01-02 12:44 | disposition home or self-care (01) ==
LOC: LAB 12:43
PROVIDERS: PCP Family Medicine; Visit Provider Family Medicine
DX: R06.00 Dyspnea, unspecified (principal)
CPT/HCPCS: 83880; 85378

== ENCOUNTER 2021-01-03 13:49 | Emergency (ER) | payer MEDICARE, MEDICAID, SELFPAY ==
[2021-01-03 14:01] VITALS: BP 174/59; PULSE 74; RESP 18; TEMP 37.2; O2SAT 98; BMI 21.1
--- NOTE | 2021-01-03 14:19 | ED_ITS ---
HPI - General Adult General: Chief complaint: General Medical Stated complaint: LOW O2 SAT Time Seen by Provider: 01/03/21 14:19 History of Present Illness: HPI narrative: Ms Saba is an 86-year-old lady with complex past medical history including CAD, carotid stenosis, diabetes, hypertension, hyperlipidemia, end-stage renal disease on hemodialysis presents emerged department due to generalized malaise and shortness of breath. She reports a few days of symptoms that have worsened over the past day or so. She endorses generalized malaise, chills, cough, and shortness of breath. Cough is primarily nonproductive. She does have home oxygen which she rarely uses however is had to use it more frequently. She saw her PCP yesterday and had test drawn and was referred here for further testing for which she reports is a lab concerning for pulmonary embolism. Overall the intensity symptoms is moderate. Course has been worsening. No other specific changes to health, exacerbating, relieving factors identified. She did receive dialysis today. Review of Systems General: Reports: 10 or more systems reviewed and unremarkable except in HPI and below PFSH ED PFSH: Medical History Anemia Carotid stenosis COPD (chronic obstructive pulmonary disease) Coronary artery disease 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 Diabetes Diastolic congestive heart failure End stage renal disease Essential hypertension GERD (gastroesophageal reflux disease) Intermittent atrial fibrillation Interstitial lung disease Third degree heart block Status post pacemaker placement Surgical History Hemodialysis access site with arteriovenous graft History of laparoscopic cholecystectomy History of tubal ligation S/P hemodialysis catheter insertion Status post colonoscopy (12/30/19) Family History Mother Cancer Lung cancer Father Diabetes Other CAD (coronary artery disease) Denies family history of Anesthesia complication Bleeding disorder Social History Smoking and tobacco status: former smoker Alcohol intake: never Physical Exam Narrative: EXAM NARRATIVE: GENERAL/CONSTITUTIONAL -chronically ill-appearing. No acute distress. Eyes - PERRL, no conjunctival injection ENMT - Atraumatic external nose and ears. Moist mucous membranes NECK - supple. trachea midline CARDIOVASCULAR - regular rate and rhythm. Peripheral pulses 2+ and equal RESPIRATORY - diminished to auscultation bilaterally. Mild tachypnea with exertion. Supplemental oxygen in place ABDOMEN/GI - Nontender/Nondistended. MSK - Extremities without obvious deformity or tenderness to palpation SKIN - Warm, Dry NEURO - alert and appropriately oriented. Moves all extremities equally. Course ED course: - Patient was seen and evaluated by me at bedside - Patient placed on cardiac monitors, IV access obtained - Initial evaluation notable for no acute distress, nontoxic appearance. - Labs notable for no leukocytosis, near baseline normocytic anemia. Metabolic panel without acute derangement. Delta troponin negative. Procalcitonin negative. - Imaging notable for no acute pulmonary embolism, mild pulmonary edema - Upon serial reexamination after treatment the patient was similar - Based on patient history, evaluation, labs, and imaging as interpreted the most likely cause of the patient's condition is mild pulmonary edema, patient comfortable with outpatient management of this finding - The results of ED evaluation were discussed with the patient including prescriptions and/or symptomatic cares (if applicable) including appropriate and responsible use, followup plan, and return precautions. The patient verbalized understanding and felt safe for discharge. - Patient discharged in satisfactory condition. Vital Signs: Vital signs: Vital Signs Temperature 99.0 F 01/03/21 14:01 Pulse Rate 87 01/03/21 20:03 Respiratory Rate 22 H 01/03/21 20:03 Blood Pressure 173/54 01/03/21 20:03 Pulse Oximetry 92 01/03/21 20:03 MDM - General Adult Medical Records: Attestation: I reviewed the patient's medical records. Lab Data: Attestation: I reviewed the patient's lab results. Labs: Lab Results 01/03/21 01/03/21 01/03/21 14:50 14:50 14:50 WBC 9.1 10^3/uL 10^3/ uL (4.0-10.0) RBC 3.15 10^6/uL L 10 ^6/uL (4.1-5.3) Hgb 9.8 g/dL L g/dL (11.5-15.3) Hct 31.0 % L % (37.0-47.0) MCV 98.4 fl fl (81-99) MCH 31.1 pg pg (28.0-34.0) MCHC 31.6 g/dL g/dL (30.0-36.0) RDW 13.2 % % (12.1-15.1) Plt Count 338 10^3/cmm 10^3 /cmm (130-400) MPV 10.1 fL fL (7.4-10.4) Neut % (Auto) 77.9 % % Lymph % (Auto) 9.9 % % [place] % (Auto) 9.3 % % Eos % (Auto) 2.0 % % Baso % (Auto) 0.6 % % Neut # (Auto) 7.06 10^3/uL 10^3 /uL (1.8-7.7) Lymph # (Auto) 0.9 10^3/uL 10^3/ uL (0.8-4.8) [place] # (Auto) 0.8 10^3/uL 10^3/ uL (0.2-0.9) Eos # (Auto) 0.2 10^3/uL 10^3/ uL (0.0-0.8) Baso # (Auto) 0.1 10^3/uL 10^3/ uL (0.0-0.1) Nucleated RBC % (a uto) 0 % % Nucleated RBCs # 0.0 /100WBC /100W BC D-Dimer Sodium 140 mmol/L mmol/L (136-145) Potassium 3.5 mmol/L mmol/L (3.5-5.1) Chloride 96 mmol/L L mmol/ L (98-107) Carbon Dioxide 32 mmol/L H mmol/ L (22-29) Anion Gap 15.5 (5-19) BUN 6 mg/dL L mg/dL (8-23) Creatinine 1.3 mg/dL H mg/dL (0.5-0.9) GFR Calculation Not Reportable Glucose 80 mg/dL mg/dL (65-115) Calculated Osmolal ity 287 mOsm/kg mOsm/ kg (285-295) Lactate 1.1 mmol/L mmol/L (0.5-2.2) Calcium 9.3 mg/dL mg/dL (8.5-10.5) Total Bilirubin 0.6 mg/dL mg/dL (0.15-1.2) AST 17 U/L U/L (0-32) ALT 10 U/L U/L (0-33) Alkaline Phosphata se 89 IU/L IU/L (35-105) Troponin T Baselin e Troponin T 120 Min [place] Delta Troponin T C-Reactive Protein 146.2 mg/L H mg/L (0.0-4.9) Total Protein 6.8 g/dL g/dL (6.6-8.7) Albumin 3.9 g/dL g/dL (3.5-5.2) Globulin 2.9 g/dL g/dL (1.3-4.6) Lipase 20 U/L U/L (13-60) Procalcitonin 0.30 ng/mL ng/mL (0-0.5) Urine Color Urine Appearance Urine pH Ur Specific Gravit y Urine Protein Urine Glucose (UA) Urine Ketones Urine Blood Urine Nitrate Urine Bilirubin Prot Sulfosalicyli c Acd Urine Urobilinogen Ur Leukocyte Pilar ase Urine RBC Urine WBC Ur Squamous Epith Cells Ur Renal Epithelia l Cell Amorphous Sediment Urine Bacteria Hyaline Casts SARS-CoV-2 Ag (Rap id) 01/03/21 01/03/21 01/03/21 14:50 14:50 15:14 WBC RBC Hgb Hct MCV MCH MCHC RDW Plt Count MPV Neut % (Auto) Lymph % (Auto) [place] % (Auto) Eos % (Auto) Baso % (Auto) Neut # (Auto) Lymph # (Auto) [place] # (Auto) Eos # (Auto) Baso # (Auto) Nucleated RBC % (a uto) Nucleated RBCs # D-Dimer 2.04 ug/mIFEU H u g/mIFEU (0-0.59) Sodium Potassium Chloride Carbon Dioxide Anion Gap BUN Creatinine GFR Calculation Glucose Calculated Osmolal ity Lactate Calcium Total Bilirubin AST ALT Alkaline Phosphata se Troponin T Baselin e 55 ng/L H ng/L (0-10) Troponin T 120 Min [place] Troponin T C-Reactive Protein Total Protein Albumin Globulin Lipase Procalcitonin Urine Color Urine Appearance Urine pH Ur Specific Gravit y Urine Protein Urine Glucose (UA) Urine Ketones Urine Blood Urine Nitrate Urine Bilirubin Prot Sulfosalicyli c Acd Urine Urobilinogen Ur Leukocyte Pilar ase Urine RBC Urine WBC Ur Squamous Epith Cells Ur Renal Epithelia l Cell Amorphous Sediment Urine Bacteria Hyaline Casts SARS-CoV-2 Ag (Rap id) Negative (Negative) 01/03/21 01/03/21 16:00 17:14 WBC RBC Hgb Hct MCV MCH MCHC RDW Plt Count MPV Neut % (Auto) Lymph % (Auto) [place] % (Auto) Eos % (Auto) Baso % (Auto) Neut # (Auto) Lymph # (Auto) [place] # (Auto) Eos # (Auto) Baso # (Auto) Nucleated RBC % (a uto) Nucleated RBCs # D-Dimer Sodium Potassium Chloride Carbon Dioxide Anion Gap BUN Creatinine GFR Calculation Glucose Calculated Osmolal ity Lactate Calcium Total Bilirubin AST ALT Alkaline Phosphata se Troponin T Baselin e Troponin T 120 Min [place] 54.86 ng/L H ng/L (0-10) Delta Troponin T -0.14 ABS# L ABS# (0-10) C-Reactive Protein Total Protein Albumin Globulin Lipase Procalcitonin Urine Color Yellow (Yellow) Urine Appearance Clear (CLEAR) Urine pH 9 H (5-7) Ur Specific Gravit y 1.010 (1.005-1.030) Urine Protein 1+ H (Negative) Urine Glucose (UA) Norm (Normal) Urine Ketones 1+ H (Negative) Urine Blood Neg (Negative) Urine Nitrate Negative (Negative) Urine Bilirubin Neg (Negative) Prot Sulfosalicyli c Acd Positive (Negative) Urine Urobilinogen Norm mg/dL mg/dL (Negative) Ur Leukocyte Pilar ase 1+ H (Negative) Urine RBC 0-4 /hpf H /hpf (0-2) Urine WBC 10-15 /hpf H /hpf (0-5) Ur Squamous Epith Cells 0-4 /hpf H /hpf (0-5) Ur Renal Epithelia l Cell 5 /hpf /hpf Amorphous Sediment Not Reportable Urine Bacteria Trace /hpf /hpf (NONE) Hyaline Casts 0-4 /lpf H /lpf SARS-CoV-2 Ag (Rap id) EKG Data^: EKG 1: Attestation: I personally reviewed and interpreted this EKG as follows: EKG interpretation date: 01/03/21 EKG interpretation time: 14:54 Interpretation: Twelve-lead EKG shows a regular rhythm at a rate of 76. FL interval 175, QRS duration 169, QTc 438. Left axis deviation. Interpretation: Paced rhythm Computer generated interpretation: Chest X-Ray 01/03/21 14:34 Impression: 1. Minimal patchy opacity in right lower lobe has not increased. 2. Recommend follow-up chest x-ray in 2-3 days. 3. Cardiomegaly and permanent pacemaker. Chest CTA 01/03/21 18:22 IMPRESSION: 1. No pulmonary embolism or pneumonia. 2. Generalized interstitial edema most consistent with vascular congestion. No effusion. 3. Central mediastinal adenopathy is slightly increased since 2019 and is most likely reactive. 4. Emphysema. 5. Coronary atherosclerosis. 6. Other chronic and incidental findings as described Radiation Dose CTDIVOL = (mGy): DLP = 494.57 (mGy-cm) EKG 2: Attestation: I personally reviewed and interpreted this EKG as follows: EKG interpretation date: 01/03/21 EKG interpretation time: 16:30 Interpretation: Twelve-lead EKG shows a regular rhythm at a rate of 94. No FL interval, QRS duration 157, QTc 460. Left axis deviation. Interpretation: Paced rhythm Computer generated interpretation: Chest X-Ray 01/03/21 14:34 Impression: 1. Minimal patchy opacity in right lower lobe has not increased. 2. Recommend follow-up chest x-ray in 2-3 days. 3. Cardiomegaly and permanent pacemaker. Chest CTA 01/03/21 18:22 IMPRESSION: 1. No pulmonary embolism or pneumonia. 2. Generalized interstitial edema most consistent with vascular congestion. No effusion. 3. Central mediastinal adenopathy is slightly increased since 2019 and is most likely reactive. 4. Emphysema. 5. Coronary atherosclerosis. 6. Other chronic and incidental findings as described Radiation Dose CTDIVOL = (mGy): DLP = 494.57 (mGy-cm) Discharge Plan Discharge Patient Disposition: Home Clinical Impression: Shortness of breath, Pulmonary edema, End stage renal disease Condition: Stable Prescriptions: No Action alprazolam 0.25 mg tablet 0.25 mg PO DAILY PRN (Reason: Anxiety) RF: 0 omeprazole 40 mg capsule,delayed release(DR/EC) 40 mg PO DAILY RF: 0 Tradjenta 5 mg tablet 5 mg PO DAILY RF: 0 mupirocin 2 % ointment 1 applic topical TID Qty: 22 RF: 2 metoprolol succinate 25 mg Tablet Extended Release 24 Hr 12.5 mg PO DAILY RF: 0 furosemide 40 mg tablet 20 mg PO BID RF: 0 amlodipine 5 mg tablet 7.5 mg PO DAILY RF: 0 Tylenol Extra Strength 500 mg Tablet 500 - 1,000 mg PO PRN RF: 0 Eye-Vites Tablet 1 tab PO DAILY RF: 0 calcium acetate(phosphat bind) 667 mg capsule See Rx Instructions .ROUTE .COMPLEX RF: 0 Tums 1 - 2 tab PO PRN RF: 0 ondansetron HCl 4 mg tablet 4 mg PO Q8H PRN (Reason: Nausea) RF: 0 RenaPlex-D 800 mcg-12.5 mg -2,000 unit tablet 1 tab PO QPM RF: 0 cholecalciferol (vitamin D3) [Vitamin D3] 50 mcg (2,000 unit) Tablet 50 mcg PO DAILY RF: 0 multivitamin Tablet 1 tab PO DAILY RF: 0 atorvastatin 40 mg Tablet 40 mg PO BEDTIME RF: 0 clopidogrel [Plavix] 75 mg Tablet 75 mg PO DAILY RF: 0 nitroglycerin [Nitrostat] 0.4 mg Tablet, Sublingual 0.4 mg SUBLINGUAL Q5M PRN (Reason: Chest Pain) RF: 0 aspirin 81 mg Tablet,Chewable 81 mg PO DAILY RF: 0 Discharge Orders: Discharge ED (Routine); Ordered 01/03/21 Ordered By: Josh Ribeiro Referrals: Magdiel Amador MD [Primary Care Provider] - Discharge Diet: Usual diet Discharge Activity: Resume usual activity Patient Instructions: Shortness of Breath (ED) Activity Restrictions/Additional Instructions: Thank you for visiting the emergency department. You were seen and evaluated for shortness of breath and concern for pulmonary embolism. You were not found to have a pulmonary embolism. You do have mild pulmonary edema. Please follow- up with your primary care provider. Please return to the emergency department for worsening symptoms or anything else that you are concerned about and feel needs emergency department evaluation. Coding Level of Care Code ED [employer] Manager for Elizabeth Lewis
--- NOTE | 2021-01-03 14:34 | XR_ITS ---
WS: [id number] Portable AP upright chest, 01/03/2021 Clinical Data: sob/cp Comparison: PA and lateral chest, 01/02/2021. Findings: No nodules, masses or effusions are seen. The patchy opacity in the right lower lobe is sti ll seen and it has the appearance of atelectasis but pneumonia is possible. The heart is enlarged. Th e pulmonary vascularity is not increased. No pneumothorax is seen. The aortic arch and descending tho racic aorta show mild tortuosity. There is an azygos lobe of the lung. There is a permanent pacemaker with the generator overlying the left upper chest. There are clips in the left axilla from surgery. There are clips in the right upper quadrant from a cholecystectomy. There are monitor leads on the ch est wall. There is an orthopedic anchor in the right humeral head. XR/XR chest 1V portable [id number] Impression: 1. Minimal patchy opacity in right lower lobe has not increased. 2. Recommend follow-up chest x-ray in 2-3 days. 3. Cardiomegaly and permanent pacemaker.
[2021-01-03 15:10] LABS: Basophils # 0.1 10^3/uL (0.0-0.1); Basophils % 0.6 %; Eosinophils # 0.2 10^3/uL (0.0-0.8); Hemoglobin 9.8 g/dL (11.5-15.3); Lymphocytes # 0.9 10^3/uL (0.8-4.8); Lymphocytes % 9.9 %; Mean Corpuscular HGB Conc 31.6 g/dL (30.0-36.0); Mean Corpuscular Hemoglobin 31.1 pg (28.0-34.0); Mean Corpuscular Volume 98.4 fl (81-99); Mean Platelet Volume 10.1 fL (7.4-10.4); Monocytes # 0.8 10^3/uL (0.2-0.9); Monocytes % 9.3 %; Neutrophils # 7.06 10^3/uL (1.8-7.7); Neutrophils % 77.9 %; Nucleated Red Blood Cells % 0 %; Platelet Count 338 10^3/cmm (130-400); Red Blood Count 3.15 10^6/uL (4.1-5.3); Red Cell Distribution Width 13.2 % (12.1-15.1); White Blood Count 9.1 10^3/uL (4.0-10.0)
[2021-01-03 15:28] LABS: Troponin(5th) Baseline 55 ng/L (0-10)
[2021-01-03 15:29] LABS: Alanine Aminotransferase 10 U/L (0-33); Albumin Level 3.9 g/dL (3.5-5.2); Alkaline Phosphatase 89 IU/L (35-105); Anion Gap 15.5 (5-19); Aspartate Amino Transferase 17 U/L (0-32); Blood Urea Nitrogen 6 mg/dL (8-23); C Reactive Protein 146.2 mg/L (0.0-4.9); Calcium 9.3 mg/dL (8.5-10.5); Carbon Dioxide 32 mmol/L (22-29); Chloride 96 mmol/L (98-107); Globulin 2.9 g/dL (1.3-4.6); Glucose 80 mg/dL (65-115); Lipase 20 U/L (13-60); Osmolality Calculated 287 mOsm/kg (285-295); Potassium 3.5 mmol/L (3.5-5.1); Sodium 140 mmol/L (136-145); Total Bilirubin 0.6 mg/dL (0.15-1.2); Total Protein 6.8 g/dL (6.6-8.7)
[2021-01-03 15:31] LABS: Lactate (Lactic Acid level) 1.1 mmol/L (0.5-2.2)
[2021-01-03 15:42] LABS: SARS Covid-2 Antigen Negative (Negative)
--- NOTE | 2021-01-03 16:35 | ECG_ITS ---
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 Measurements Intervals [place] Rate: 94 P: MI: QRS: -54 QRSD: 157 T: 102 QT: 408 QTc: 512 Interpretive Statements ELECTRONIC VENTRICULAR PACEMAKER ABNORMAL RHYTHM ECG Compared to ECG 01/03/2021 14:43:35 Atrial-paced complex(es) or rhythm no longer present Electronically Signed On 01-03-2021 20:51:24 TRACK MAN by Alessandro Carney M.D. [id number]
[2021-01-03 16:41] LABS: Urine Appearance Clear (CLEAR); Urine Color Yellow (Yellow)
[2021-01-03 16:42] LABS: Bilirubin Urine Neg (Negative); Blood Urine Neg (Negative); Glucose Urine UA Norm (Normal); Ketones Urine 1+ (Negative); Nitrate Urine Negative (Negative); Protein Urine 1+ (Negative); pH Urine 9 (5-7)
[2021-01-03 16:43] LABS: Add Urine Microscopic? YES; Leukocyte Esterase Urine 1+ (Negative); Sulfosalicylic Acid Urine Positive (Negative); Urobilinogen Urine Norm (Negative)
[2021-01-03 16:48] LABS: RBC Urine 0-4 /hpf (0-2); Renal Epithelial Cells Urine 5 /hpf; Squamous Epithelial Cell Urine 0-4 /hpf (0-5)
[2021-01-03 16:49] LABS: Bacteria Urine TRACE /hpf; Hyaline Casts Urine 0-4 /lpf
[2021-01-03 16:50] LABS: Add Urine Culture? No
[2021-01-03 17:43] LABS: Troponin 5 2HR 54.86 ng/L (0-10)
[2021-01-03 17:46] LABS: Troponin 5 2HR Delta -0.14 ABS# (0-10)
--- NOTE | 2021-01-03 18:22 | CTR_ITS ---
PROCEDURE INFORMATION: Exam: CTA Chest With Contrast Exam date and time: 01/03/2021 6:22 PM Age: 86 years old Clinical indication: Pain and abnormal findings; Abnormal diagnostic tests; Elevated d-dimer; Chest pressure; Prior surgery; Surgery type: Stents, pacemaker; Additional info: Elevated d dimer TECHNIQUE: Imaging protocol: Computed tomographic angiography of the chest with contrast. 3D rendering (Not supervised by radiologist): MIP and/or 3D reconstructed images were created by the technologist. Radiation optimization: All CT scans at this facility use at least one of these dose optimization techniques: automated exposure control; mA and/or kV adjustment per patient size (includes targeted exams where dose is matched to clinical indication); or iterative reconstruction. Contrast material: VISI 320; Contrast volume: 67 ml; Contrast route: INTRAVENOUS (IV); COMPARISON: CT angio chest PE protcl [id number] 09/20/2019 8:10 PM RADIATION DOSE METRICS: Total DLP (mGy-cm): 494.57 FINDINGS: Tubes, catheters and devices: Pacer leads end within the heart. Pulmonary arteries: Overall exam quality is good for evaluating the pulmonary arteries. There are no intraluminal filling defects to indicate pulmonary embolism. Aorta: Unremarkable. No aortic aneurysm. No aortic dissection. Lungs: There is generalized septal thickening but with a lower lobe and dependent predominance most likely representing interstitial edema. Bibasilar dependent atelectasis. Centrilobular emphysema has an upper lobe predominance. Incidental azygos lobe. Pleural spaces: No pleural effusion. Heart: The heart is enlarged especially the left atrium. There is heavy calcified plaque in the coronary arteries. Lymph nodes: There is moderate central mediastinal and hilar adenopathy. For example a precarinal node measures 2.1 cm. A subcarinal node measures 2.6 cm. A right hilar node measures 2.0 cm. A paratracheal node measures 1.6 cm. There is no axillary adenopathy. Gallbladder and bile ducts: The gallbladder is surgically absent. Kidneys and ureters: The kidneys are atrophic. Bones/joints: L1 40-50% superior endplate fracture is likely chronic. There is no surrounding edema. 3 mm of bony retropulsion but without significant central stenosis. Soft tissues: Unremarkable. CT/CT angio chest PE protcl [id number] IMPRESSION: 1. No pulmonary embolism or pneumonia. 2. Generalized interstitial edema most consistent with vascular congestion. No effusion. 3. Central mediastinal adenopathy is slightly increased since 2020 and is most likely reactive. 4. Emphysema. 5. Coronary atherosclerosis. 6. Other chronic and incidental findings as described Radiation Dose CTDIVOL = (mGy): DLP = 494.57 (mGy-cm)
[2021-01-03 18:32] LABS: D Dimer 2.04 ug/mIFEU (0-0.59)
[2021-01-03] MEDS: iodixanol 320 mg/mL 100mL Btl IV (18:50)
--- NOTE | 2021-01-03 19:11 | PC.NURSE ---
REPORT GIVEN TO THIS NURSE AT 1845 FOR THIS PATIENT. THIS NURSE VISITED WITH PATIENT AT 1905.
[2021-01-03 19:14] VITALS: BP 180/67; PULSE 68; RESP 20; O2SAT 93
[2021-01-03 20:03] VITALS: BP 173/54; PULSE 87; RESP 22; O2SAT 92
--- NOTE | 2021-01-03 20:35 | ECG_ITS ---
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 Measurements Intervals [place] Rate: 76 P: 65 VA: 175 QRS: -56 QRSD: 169 T: 107 QT: 408 QTc: 460 Interpretive Statements ELECTRONIC ATRIAL PACEMAKER ELECTRONIC VENTRICULAR PACEMAKER ABNORMAL RHYTHM ECG Compared to ECG 07/31/2020 13:54:39 No significant changes Electronically Signed On 01-03-2021 20:50:53 BALL RACKER by Alessandro Carney M.D. [email or web address] adult care unitGroovemedina [email or web address]/store/[id number]
== END 2021-01-03 20:03 | disposition home or self-care (01) ==
PROVIDERS: Emergency Provider Emergency Medicine; PCP Family Medicine
DX: J81.1 Chronic pulmonary edema (principal); I12.0 Hypertensive chronic kidney disease with stage 5 chronic kidney disease or end stage renal disease; E11.22 Type 2 diabetes mellitus with diabetic chronic kidney disease; N18.6 End stage renal disease; J44.9 Chronic obstructive pulmonary disease, unspecified; I25.10 Atherosclerotic heart disease of native coronary artery without angina pectoris; K21.9 Gastro-esophageal reflux disease without esophagitis; Z95.0 Presence of cardiac pacemaker
CPT/HCPCS: 71045; 71275; 80053; 81001; 83605; 83690; 84145; 84484; 85025; 85378; 86140; 87426; 93005; 99283; Q9967

== ENCOUNTER 2021-07-11 10:55 | Emergency (ER) | payer MEDICARE, MEDICAID, SELFPAY ==
[2021-07-11 10:59] VITALS: BP 157/58; PULSE 64; RESP 21; TEMP 36.6; O2SAT 98; BMI 21.2
--- NOTE | 2021-07-11 11:07 | XR_ITS ---
WS: [id number] Portable AP upright chest, 07/11/2021 Clinical Data: dyspnea/cough Comparison: Portable chest, 01/03/2021. Findings: No nodules, masses or effusions are seen. The heart is enlarged. The pulmonary vascularity is not increased. No pneumonia or pneumothorax is seen. The aortic arch and descending thoracic aorta show calcification and tortuosity. There is a 2-lead pacemaker with the generator in the left axilla unchanged. There are monitor leads on the chest wall orthopedic ankle in the right humeral head. XR/XR chest 1V portable [id number] Impression: 1. Negative for acute pneumonia. 2. Cardiomegaly, atherosclerosis and permanent pacemaker.
--- NOTE | 2021-07-11 11:11 | ECG_ITS ---
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 Measurements Intervals [place] Rate: 85 P: 105 ME: 271 QRS: -84 QRSD: 160 T: 83 QT: 422 QTc: 504 Interpretive Statements A sense rhythm with demand atrial pacing ELECTRONIC VENTRICULAR PACEMAKER ABNORMAL RHYTHM ECG Compared to ECG 01/03/2021 16:26:30 No significant changes Electronically Signed On 07-11-2021 20:21:19 CDT by Mireya Reyes M.D. [id number]
--- NOTE | 2021-07-11 11:12 | W.ED.SOB ---
HPI - SOB/Dyspnea General: Chief Complaint: Shortness of Breath/Dyspnea Stated Complaint: SOB Time Seen by Provider: 07/11/21 11:03 Source: patient Mode of arrival: ambulatory Limitations: no limitations History of Present Illness: HPI Narrative: 86-year-old female presents emergency room with complaints of cough. She has had this for over a week she seen her primary care doctor last week who put her on some Flonase she was having a lot of nasal drainage at the time. She is not particular been short of breath cough for the most part has been nonproductive patient does have end-stage renal disease and is scheduled for dialysis today she denies any chest pain or fever. MD elicited complaint: shortness of breath Pertinent past history: COPD Onset (ago): week(s) Timing: constant Severity: mild Exacerbating factors: nothing Relieving factors: nothing Known history of: COPD Associated symptoms: Deny abdominal pain, chest congestion, chest pain, cough, diaphoresis, dizziness, extremity pain, fever(s), hemoptysis, lightheadedness, myalgias, nausea, orthopnea, palpitations, paresthesias, polydipsia, polyuria, rash, sense of impending doom or vomiting Treatment prior to arrival: none Review of Systems Const: Denies: fever(s), chills or diaphoresis Card: Denies: chest pain, palpitations, lightheadedness or orthopnea Resp: Reports: wheezing; Denies: dyspnea, hemoptysis or chest congestion GI: Denies: abdominal pain, nausea or vomiting Musc: Denies: extremity pain Neuro: Denies: dizziness Endo: Denies: polyuria or polydipsia PFSH ED PFSH: Medical History Anemia Carotid stenosis COPD (chronic obstructive pulmonary disease) Coronary artery disease 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 Diabetes Diastolic congestive heart failure End stage renal disease Essential hypertension GERD (gastroesophageal reflux disease) Intermittent atrial fibrillation Interstitial lung disease Third degree heart block Status post pacemaker placement Surgical History Hemodialysis access site with arteriovenous graft History of laparoscopic cholecystectomy History of tubal ligation S/P hemodialysis catheter insertion Status post colonoscopy (12/30/19) Family History Mother Cancer Lung cancer Father Diabetes Other CAD (coronary artery disease) Denies family history of Anesthesia complication Bleeding disorder Social History Smoking and tobacco status: former smoker Alcohol intake: never Physical Exam Const: GENERAL APPEARANCE: cooperative and comfortable ORIENTATION/CONSCIOUSNESS: Yes awake, Yes oriented to person, Yes oriented to place and Yes oriented to time HENMT: COMMON NORMALS: normocephalic, atraumatic and hearing grossly normal bilaterally HEAD & SCALP: normocephalic and atraumatic Neck/C-Spine: COMMON NORMALS: no JVD Resp: COMMON NORMALS: normal respiratory effort, No retractions, No use of accessory muscles and clear to auscultation bilaterally AUSCULTATION: clear to auscultation bilaterally Cardio: COMMON NORMALS: no JVD, regular rate, regular rhythm and No murmurs present (Cardio) RATE: regular rate RHYTHM: regular rhythm GI: COMMON NORMALS: Soft to palpation and No hepatosplenomegaly present AUSCULTATION: Yes normoactive bowel sounds PALPATION: Yes Soft to palpation, No Tenderness to palpation present (GI), No Guarding due to palpation present (GI) and Yes No hepatosplenomegaly present Extremity: COMMON NORMALS: normal to inspection, capillary refill normal, no clubbing, cyanosis or edema, no calf tenderness and no pedal edema Neuro: SENSORIUM/ORIENTATION: Yes oriented to person, Yes oriented to place and Yes oriented to time Course Vital Signs: Vital signs: Vital Signs Temperature 97.8 F 07/11/21 10:59 Pulse Rate 64 07/11/21 12:35 Respiratory Rate 21 H 07/11/21 10:59 Blood Pressure 150/73 07/11/21 12:35 Pulse Oximetry 97 07/11/21 12:35 MDM - SOB/Dyspnea Medical Decision Making X-ray and labs unremarkable. We will start her on a prednisone taper discharge her to go to get her regular dialysis. Medical Records I reviewed the patient's medical records. Lab Data I reviewed the patient's lab results. : 07/11/21 11:25 07/11/21 11:25 Labs/Radiology: Radiology Impressions Chest X-Ray 07/11/21 11:07 Impression: 1. Negative for acute pneumonia. 2. Cardiomegaly, atherosclerosis and permanent pacemaker. Laboratory Results WBC 6.9 10^3/uL (4.0-10.0) 07/11/21 11: RBC 2.93 10^6/uL (4.1-5.3) L 07/11/21 11:25 Hgb 9.7 g/dL (11.5-15.3) L 07/11/21 11:25 Hct 31.1 % (37.0-47.0) L 07/11/21 11:25 MCV 106.1 fl (81-99) H 07/11/21 11:25 MCH 33.1 pg (28.0-34.0) 07/11/21 11: MCHC 31.2 g/dL (30.0-36.0) 07/11/21 11: RDW 13.0 % (12.1-15.1) 07/11/21 11: Plt Count 220 10^3/cmm (130-400) 07/11/21 11:25 MPV 10.1 fL (7.4-10.4) 07/11/21 11:25 Neut % (Auto) 72.7 % 07/11/21 11:25 Lymph % (Auto) 13.0 % 07/11/21 11:25 [place] % (Auto) 12.6 % 07/11/21 11:25 Eos % (Auto) 0.7 % 07/11/21 11:25 Baso % (Auto) 0.7 % 07/11/21 11:25 Neut # (Auto) 5.04 10^3/uL (1.8-7.7) 07/11/21 11:25 Lymph # (Auto) 0.9 10^3/uL (0.8-4.8) 07/11/21 11:25 [place] # (Auto) 0.9 10^3/uL (0.2-0.9) 07/11/21 11:25 Eos # (Auto) 0.1 10^3/uL (0.0-0.8) 07/11/21 11:25 Baso # (Auto) 0.1 10^3/uL (0.0-0.1) 07/11/21 11:25 Nucleated RBC % (auto) 0 % 07/11/21 11:25 Nucleated RBCs # 0.0 /100WBC 07/11/21 11:25 Sodium 136 mmol/L (136-145) 07/11/21 11:25 Potassium 4.6 mmol/L (3.5-5.1) 07/11/21 11:25 Chloride 97 mmol/L (98-107) L 07/11/21 11:25 Carbon Dioxide 21 mmol/L (22-29) L 07/11/21 11:25 Anion Gap 22.6 (5-19) H 07/11/21 11:25 BUN 43 mg/dL (8-23) H 07/11/21 11:25 Creatinine 5.6 mg/dL (0.5-0.9) H* 07/11/21 11:25 GFR Calculation Not Reportable 07/11/21 11:25 Glucose 163 mg/dL (65-115) H 07/11/21 11:25 Calculated Osmolality 296 mOsm/kg (285-295) H 07/11/21 11:25 Calcium 8.9 mg/dL (8.5-10.5) 07/11/21 11:25 Discharge Plan Discharge Patient Disposition: Home Clinical Impression: Cough, End stage renal disease, Seasonal allergies Condition: Stable Prescriptions: New Medrol (Ant) 4 mg tablets,dose pack See Rx Instructions .ROUTE .COMPLEX Qty: 21 0RF Rx Instructions: orally per package directions No Action alprazolam 0.25 mg tablet 0.25 mg PO DAILY PRN (Reason: Anxiety) 0RF Rx Instructions: see pharmacy comments omeprazole 40 mg capsule,delayed release(DR/EC) 40 mg PO DAILY 0RF Tradjenta 5 mg tablet 5 mg PO DAILY 0RF mupirocin 2 % ointment 1 applic topical TID Qty: 22 2RF metoprolol succinate 25 mg Tablet Extended Release 24 Hr 12.5 mg PO DAILY 0RF furosemide 40 mg tablet 20 mg PO BID 0RF amlodipine 5 mg tablet 7.5 mg PO DAILY 0RF Tylenol Extra Strength 500 mg Tablet 500 - 1,000 mg PO PRN 0RF Eye-Vites Tablet 1 tab PO DAILY 0RF calcium acetate(phosphat bind) 667 mg capsule See Rx Instructions .ROUTE .COMPLEX 0RF Rx Instructions: see pharmacy comments Tums 1 - 2 tab PO PRN 0RF ondansetron HCl 4 mg tablet 4 mg PO Q8H PRN (Reason: Nausea) 0RF RenaPlex-D 800 mcg-12.5 mg -2,000 unit tablet 1 tab PO QPM 0RF cholecalciferol (vitamin D3) [Vitamin D3] 50 mcg (2,000 unit) Tablet 50 mcg PO DAILY 0RF multivitamin Tablet 1 tab PO DAILY 0RF atorvastatin 40 mg Tablet 40 mg PO BEDTIME 0RF clopidogrel [Plavix] 75 mg Tablet 75 mg PO DAILY 0RF nitroglycerin [Nitrostat] 0.4 mg Tablet, Sublingual 0.4 mg SUBLINGUAL Q5M PRN (Reason: Chest Pain) 0RF aspirin 81 mg Tablet,Chewable 81 mg PO DAILY 0RF Discharge Orders: Discharge ED (Routine); Ordered 07/11/21 Ordered By: Jalen Parks Referrals: Magdiel Amador MD [Primary Care Provider] - Patient Instructions: Opioid Safety Coding Level of Care Code ED [employer] for [employer]g Fwd Exam Detailed
[2021-07-11 11:30] LABS: Basophils # 0.1 10^3/uL (0.0-0.1); Basophils % 0.7 %; Eosinophils # 0.1 10^3/uL (0.0-0.8); Eosinophils % 0.7 %; Hematocrit 31.1 % (37.0-47.0); Hemoglobin 9.7 g/dL (11.5-15.3); Lymphocytes # 0.9 10^3/uL (0.8-4.8); Mean Corpuscular HGB Conc 31.2 g/dL (30.0-36.0); Mean Corpuscular Hemoglobin 33.1 pg (28.0-34.0); Mean Corpuscular Volume 106.1 fl (81-99); Mean Platelet Volume 10.1 fL (7.4-10.4); Monocytes # 0.9 10^3/uL (0.2-0.9); Monocytes % 12.6 %; Neutrophils # 5.04 10^3/uL (1.8-7.7); Neutrophils % 72.7 %; Nucleated Red Blood Cells % 0 %; Platelet Count 220 10^3/cmm (130-400); Red Blood Count 2.93 10^6/uL (4.1-5.3); White Blood Count 6.9 10^3/uL (4.0-10.0)
[2021-07-11 11:39] VITALS: BP 155/72; PULSE 60; O2SAT 97
[2021-07-11 11:56] LABS: Anion Gap 22.6 (5-19); Blood Urea Nitrogen 43 mg/dL (8-23); Calcium 8.9 mg/dL (8.5-10.5); Carbon Dioxide 21 mmol/L (22-29); Chloride 97 mmol/L (98-107); Glucose 163 mg/dL (65-115); Osmolality Calculated 296 mOsm/kg (285-295); Potassium 4.6 mmol/L (3.5-5.1); Sodium 136 mmol/L (136-145)
[2021-07-11 12:35] VITALS: BP 150/73; PULSE 64; O2SAT 97
== END 2021-07-11 13:33 | disposition home or self-care (01) ==
PROVIDERS: Emergency Provider Family Medicine; PCP Family Medicine
DX: R05.9 Cough, unspecified (principal); J30.2 Other seasonal allergic rhinitis; I13.2 Hypertensive heart and chronic kidney disease with heart failure and with stage 5 chronic kidney disease, or end stage renal disease; N18.6 End stage renal disease; I50.30 Unspecified diastolic (congestive) heart failure; J44.9 Chronic obstructive pulmonary disease, unspecified; I25.10 Atherosclerotic heart disease of native coronary artery without angina pectoris; E11.9 Type 2 diabetes mellitus without complications; Z99.2 Dependence on renal dialysis
CPT/HCPCS: 71045; 80048; 85025; 93005; 99283

== ENCOUNTER 2021-07-25 13:18 | Emergency (ER) | payer MEDICARE, MEDICAID, SELFPAY ==
--- NOTE | 2021-07-25 13:24 | XRR_ITS ---
PROCEDURE INFORMATION: Exam: XR Chest Exam date and time: 07/25/2021 1:31 PM Age: 86 years old Clinical indication: Dyspnea TECHNIQUE: Imaging protocol: XR of the chest. Views: 1 view. COMPARISON: CR XR chest 1V portable [id number] 07/11/2021 11:26 AM FINDINGS: Tubes, catheters and devices: A permanent sequential pacemaker appears intact. Lungs: Unremarkable. No consolidation. Pleural spaces: Unremarkable. No pleural effusion. No pneumothorax. Heart/Mediastinum: Unremarkable. No cardiomegaly. Bones/joints: Unremarkable. XR/XR chest 1V portable [id number] IMPRESSION: No significant cardiopulmonary abnormality.
[2021-07-25 13:27] VITALS: BP 125/58; PULSE 65; RESP 18; O2SAT 96
--- NOTE | 2021-07-25 13:28 | W.ED.GENADLT ---
HPI - General Adult General: Chief complaint: Shortness of Breath/Dyspnea Stated complaint: SICK X 3 WEEKS Time Seen by Provider: 07/25/21 13:19 History of Present Illness: Patient is an 86-year-old female with a history of ESRD dialysis Friday/Friday/Friday, COPD, carotid stenosis, anemia, CAD that she is emergency room with concerns of cough. Patient tells me has been calling for the last 3 weeks and would like to be checked out for a cough. Patient reports mild pinkish phlegm earlier today. Patient reports subjective fever chills at home. Denies any chest pain, shortness of breath, abdominal complaints nausea/vomiting, diarrhea complaints melena status post he is at this time. Patient completed her dialysis. Onset:3 weeks ago Duration:3 weeks Location:home Severity:moderate Associated symptoms: Deny chest pain, dyspnea, nausea, rash, palpitations or vomiting Review of Systems Const: Denies: fever(s) or chills Eyes: Denies: change in vision ENMT: Denies: mouth pain Card: Denies: chest pain or palpitations Resp: Reports: productive cough; Denies: dyspnea GI: Denies: abdominal pain, nausea, vomiting or diarrhea : Denies: dysuria Musc: Denies: extremity pain Skin/Breast: Denies: rash or new lesions Neuro: Denies: weakness in extremities Psych: Reports: other (Normal mood) [place]/Lymph: Denies: easy bruising PFSH ED PFSH: Medical History Anemia Carotid stenosis COPD (chronic obstructive pulmonary disease) Coronary artery disease 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 Diabetes Diastolic congestive heart failure End stage renal disease Essential hypertension GERD (gastroesophageal reflux disease) Intermittent atrial fibrillation Interstitial lung disease Third degree heart block Status post pacemaker placement Surgical History Hemodialysis access site with arteriovenous graft History of laparoscopic cholecystectomy History of tubal ligation S/P hemodialysis catheter insertion Status post colonoscopy (12/30/19) Family History Mother Cancer Lung cancer Father Diabetes Other CAD (coronary artery disease) Denies family history of Anesthesia complication Bleeding disorder Social History Smoking and tobacco status: former smoker Alcohol intake: never Physical Exam Const: COMMON NORMALS: alert HENMT: COMMON NORMALS: atraumatic HEAD & SCALP: atraumatic MOUTH: moist mucous membranes not abnormal Eye: COMMON NORMALS: EOMs intact bilaterally and conjunctivae normal CONJUNCTIVA: Yes conjunctivae normal Neck/C-Spine: COMMON NORMALS: full ROM and supple Resp: COMMON NORMALS: normal respiratory effort and clear to auscultation bilaterally AUSCULTATION: clear to auscultation bilaterally Cardio: COMMON NORMALS: regular rate RATE: regular rate GI: COMMON NORMALS: Soft to palpation and non-tender PALPATION: Yes Soft to palpation Extremity: COMMON NORMALS: full ROM NARRATIVE EXTREMITY EXAM: L arm fistula site dry/clean/intact Neuro: SENSORIUM/ORIENTATION: Yes alert MOTOR EXAM: No Abnormal motor strength present and Other motor observations present (no focal motor deficits) Psych: COMMON NORMALS: speech normal SPEECH: Yes normal speech MOOD & AFFECT: Yes euthymic mood Course Vital Signs: Vital signs: Vital Signs Pulse Rate 68 07/25/21 15:35 Respiratory Rate 18 07/25/21 15:35 Blood Pressure 138/54 07/25/21 15:35 Pulse Oximetry 93 07/25/21 15:35 MDM - General Adult Medical Decision Making Patient is 86-year-old female with on dialysis M/W/F, CAD, carotid stenosis, anemia, diabetes presenting to the emergency room for evaluation of worsening cough x3 weeks. Dynamically stable, no coarse breath sounds bilaterally. No signs of increased work of breathing. X-ray chest negative for acute any acute finding. White count 10.1 similar to baseline. Hemoglobin 10.0. Creatinine of 3 similar to baseline. At the present time, influenza is negative. COVID is pending. Patient satting well with no increased work of breathing. Patient will be stable for close follow-up. Do not suspect any acute pathology at this time including ACS given presentation of cough today. Rx tylenol PRN pain Disposition: Discharge. Patient counseled regarding diagnostic impression, treatment plan. Patient given ED strict return precautions to return for continuation, worsening, or development of new symptoms. Instructed to f/u w/ PCP regarding symptoms today. Patient verbalized understanding. Lab Data : 07/25/21 14:00 07/25/21 14:00 Radiology Impressions Chest X-Ray 07/25/21 13:24 IMPRESSION: No significant cardiopulmonary abnormality. Laboratory Results WBC 10.1 10^3/uL (4.0-10.0) H 07/25/21 14:00 RBC 3.00 10^6/uL (4.1-5.3) L 07/25/21 14:00 Hgb 10.0 g/dL (11.5-15.3) L 07/25/21 14:00 Hct 31.0 % (37.0-47.0) L 07/25/21 14:00 MCV 103.3 fl (81-99) H 07/25/21 14:00 MCH 33.3 pg (28.0-34.0) 07/25/21 14:00 MCHC 32.3 g/dL (30.0-36.0) 07/25/21 14:00 RDW 14.6 % (12.1-15.1) 07/25/21 14:00 Plt Count 311 10^3/cmm (130-400) 07/25/21 14:00 MPV 10.7 fL (7.4-10.4) H 07/25/21 14:00 Neut % (Auto) 80.8 % 07/25/21 14:00 Lymph % (Auto) 8.3 % 07/25/21 14:00 [place] % (Auto) 8.2 % 07/25/21 14:00 Eos % (Auto) 1.8 % 07/25/21 14:00 Baso % (Auto) 0.5 % 07/25/21 14:00 Neut # (Auto) 8.14 10^3/uL (1.8-7.7) H 07/25/21 14:00 Lymph # (Auto) 0.8 10^3/uL (0.8-4.8) 07/25/21 14:00 [place] # (Auto) 0.8 10^3/uL (0.2-0.9) 07/25/21 14:00 Eos # (Auto) 0.2 10^3/uL (0.0-0.8) 07/25/21 14:00 Baso # (Auto) 0.1 10^3/uL (0.0-0.1) 07/25/21 14:00 Nucleated RBC % (auto) 0 % 07/25/21 14:00 Nucleated RBCs # 0.0 /100WBC 07/25/21 14:00 Sodium 137 mmol/L (136-145) 07/25/21 14:00 Potassium 3.9 mmol/L (3.5-5.1) 07/25/21 14:00 Chloride 96 mmol/L (98-107) L 07/25/21 14:00 Carbon Dioxide 27 mmol/L (22-29) 07/25/21 14:00 Anion Gap 17.9 (5-19) 07/25/21 14:00 BUN 19 mg/dL (8-23) 07/25/21 14:00 Creatinine 3.0 mg/dL (0.5-0.9) H 07/25/21 14:00 GFR Calculation Not Reportable 07/25/21 14:00 Glucose 101 mg/dL (65-115) 07/25/21 14:00 Calculated Osmolality 286 mOsm/kg (285-295) 07/25/21 14:00 Calcium 9.3 mg/dL (8.5-10.5) 07/25/21 14:00 C-Reactive Protein 177.5 mg/L (0.0-4.9) H 07/25/21 14:00 Procalcitonin 0.55 ng/mL (0-0.5) H 07/25/21 14:00 Coronavirus 229E (PCR) Not detected (NOT DETECT) 07/25/21 14:00 Influenza Type A Ag Negative (Negative) 07/25/21 14:00 Influenza Type B Ag Negative (Negative) 07/25/21 14:00 SARS-CoV-2 (PCR) Not detected (NOT DETECT) 07/25/21 14:00 Imaging Data Other Imaging: Radiologist's impression: [address] [address] XRay Report Signed Patient: Galina Saba Unit #: [id number] : 1935 Age/Sex: 86 / F ADM Date: 07/25/21 Loc: ER Room/Bed: Attending Dr: Ordering Provider/Ordering MD: Carmenza Knox MD Date of Service: 07/25/21 Procedure(s): XR chest 1V portable [id number] Accession Number(s): [id number] Report Number: [id number] PROCEDURE INFORMATION: Exam: XR Chest Exam date and time: 07/25/2021 1:31 PM Age: 86 years old Clinical indication: Dyspnea TECHNIQUE: Imaging protocol: XR of the chest. Views: 1 view. COMPARISON: CR XR chest 1V portable [id number] 07/11/2021 11:26 AM FINDINGS: Tubes, catheters and devices: A permanent sequential pacemaker appears intact. Lungs: Unremarkable. No consolidation. Pleural spaces: Unremarkable. No pleural effusion. No pneumothorax. Heart/Mediastinum: Unremarkable. No cardiomegaly. Bones/joints: Unremarkable. XR/XR chest 1V portable [id number] IMPRESSION: No significant cardiopulmonary abnormality. ? Dictated By: Leno Glez Signed By: Leno Glez Signed Date/Time: 07/25/21 1341 DD/ 1331 Discharge Plan Discharge Patient Disposition: Home Clinical Impression: Cough Condition: Stable Prescriptions: New acetaminophen 500 mg tablet 500 mg PO Q6H PRN (Reason: pain) 5 Days Qty: 20 0RF No Action alprazolam 0.25 mg tablet 0.25 mg PO DAILY PRN (Reason: Anxiety) 0RF Rx Instructions: see pharmacy comments omeprazole 40 mg capsule,delayed release(DR/EC) 40 mg PO DAILY 0RF Tradjenta 5 mg tablet 5 mg PO DAILY 0RF mupirocin 2 % ointment 1 applic topical TID Qty: 22 2RF metoprolol succinate 25 mg Tablet Extended Release 24 Hr 12.5 mg PO DAILY 0RF furosemide 40 mg tablet 20 mg PO BID 0RF amlodipine 5 mg tablet 7.5 mg PO DAILY 0RF Tylenol Extra Strength 500 mg Tablet 500 - 1,000 mg PO PRN 0RF Eye-Vites Tablet 1 tab PO DAILY 0RF calcium acetate(phosphat bind) 667 mg capsule See Rx Instructions .ROUTE .COMPLEX 0RF Rx Instructions: see pharmacy comments Tums 1 - 2 tab PO PRN 0RF ondansetron HCl 4 mg tablet 4 mg PO Q8H PRN (Reason: Nausea) 0RF RenaPlex-D 800 mcg-12.5 mg -2,000 unit tablet 1 tab PO QPM 0RF cholecalciferol (vitamin D3) [Vitamin D3] 50 mcg (2,000 unit) Tablet 50 mcg PO DAILY 0RF multivitamin Tablet 1 tab PO DAILY 0RF atorvastatin 40 mg Tablet 40 mg PO BEDTIME 0RF clopidogrel [Plavix] 75 mg Tablet 75 mg PO DAILY 0RF nitroglycerin [Nitrostat] 0.4 mg Tablet, Sublingual 0.4 mg SUBLINGUAL Q5M PRN (Reason: Chest Pain) 0RF aspirin 81 mg Tablet,Chewable 81 mg PO DAILY 0RF Medrol (Ant) 4 mg tablets,dose pack See Rx Instructions .ROUTE .COMPLEX Qty: 21 0RF Rx Instructions: orally per package directions Discharge Orders: Discharge ED (Routine); Ordered 07/25/21 Ordered By: Carmenza Knox Referrals: Magdiel Amador MD [Primary Care Provider] - Discharge Diet: Advance as tolerated Discharge Activity: Increase activity as tolerated Patient Instructions: Acute Cough (ED) Activity Restrictions/Additional Instructions: Here are the other suggestions for cough: Take mucinex as needed Drink green tea Stay hydrated Use a cough drop Have some honey (every few hours) Use a humidifier Elevate your bed when you sleep Apply menthol scented balm to your nose to decongest Come back to the emergency room if your symptoms worsen, have any shortness of breath, fever/chills, dehydration, inability tolerate food or drinks, any difficulty breathing, or any new or concerning complaints. Coding Level of Care Code ED [facility]plain for [facility] Fwdaksha Exam Comprehensive
[2021-07-25 14:26] LABS: Basophils # 0.1 10^3/uL (0.0-0.1); Basophils % 0.5 %; Eosinophils # 0.2 10^3/uL (0.0-0.8); Eosinophils % 1.8 %; Lymphocytes # 0.8 10^3/uL (0.8-4.8); Lymphocytes % 8.3 %; Mean Corpuscular HGB Conc 32.3 g/dL (30.0-36.0); Mean Corpuscular Hemoglobin 33.3 pg (28.0-34.0); Mean Corpuscular Volume 103.3 fl (81-99); Mean Platelet Volume 10.7 fL (7.4-10.4); Monocytes # 0.8 10^3/uL (0.2-0.9); Monocytes % 8.2 %; Neutrophils # 8.14 10^3/uL (1.8-7.7); Neutrophils % 80.8 %; Nucleated Red Blood Cells % 0 %; Platelet Count 311 10^3/cmm (130-400); Red Cell Distribution Width 14.6 % (12.1-15.1); White Blood Count 10.1 10^3/uL (4.0-10.0)
[2021-07-25 14:35] LABS: Anion Gap 17.9 (5-19); Blood Urea Nitrogen 19 mg/dL (8-23); C Reactive Protein 177.5 mg/L (0.0-4.9); Calcium 9.3 mg/dL (8.5-10.5); Carbon Dioxide 27 mmol/L (22-29); Chloride 96 mmol/L (98-107); Glucose 101 mg/dL (65-115); Osmolality Calculated 286 mOsm/kg (285-295); Potassium 3.9 mmol/L (3.5-5.1); Sodium 137 mmol/L (136-145)
[2021-07-25 14:36] LABS: Influenza A by IFA Negative (Negative); Influenza B by IFA Negative (Negative)
[2021-07-25 14:43] LABS: Procalcitonin 0.55 ng/mL (0-0.5)
[2021-07-25 15:35] VITALS: BP 138/54; PULSE 68; RESP 18; O2SAT 93
[2021-07-25 16:01] LABS: Adenovirus Not Detected (NOT DETECT); Chlamydia Pneumoniae Not Detected (NOT DETECT); Coronavirus 229E,HKU1,NL63,OC4 Not Detected (NOT DETECT); Human Metapneumovirus Not Detected (NOT DETECT); Human Rhinovirus/Enterovirus Not Detected (NOT DETECT); Influenza A Not Detected (NOT DETECT); Influenza A H1 Not Detected (NOT DETECT); Influenza A H1-2009 Not Detected (NOT DETECT); Influenza A H3 Not Detected (NOT DETECT); Influenza B Not Detected (NOT DETECT); Mycoplasma Pneumoniae Not Detected (NOT DETECT); Parainfluenza Virus Type 1 Not Detected (NOT DETECT); Parainfluenza Virus Type 2 Not Detected (NOT DETECT); Parainfluenza Virus Type 3 Not Detected (NOT DETECT); Parainfluenza Virus Type 4 Not Detected (NOT DETECT); Respiratory Syncytial Virus A Not Detected (NOT DETECT); Respiratory Syncytial Virus B Not Detected (NOT DETECT); SARS-COV-2 Not Detected (NOT DETECT)
== END 2021-07-25 15:55 | disposition home or self-care (01) ==
PROVIDERS: Emergency Provider Emergency Medicine; PCP Family Medicine
DX: R05.9 Cough, unspecified (principal)
CPT/HCPCS: 71045; 80048; 84145; 85025; 86140; 87635; 87804; 99283

== ENCOUNTER 2021-07-30 13:37 | Observation (INO) | payer MEDICARE, MEDICAID, SELFPAY ==
--- NOTE | 2021-07-30 13:38 | XRR_ITS ---
PROCEDURE INFORMATION: Exam: XR Chest Exam date and time: 07/30/2021 1:45 PM Age: 86 years old Clinical indication: Other: Generalized weakness; Prior surgery; Surgery type: Pacemaker, cardiac stents, tubal TECHNIQUE: Imaging protocol: XR of the chest. Views: 1 view. COMPARISON: CR XR chest 1V portable [id number] 07/25/2021 1:31 PM FINDINGS: Tubes, catheters and devices: Cardiac device left anterior chest in good position. Lungs: Unremarkable. No consolidation. Pleural spaces: Unremarkable. No pleural effusion. No pneumothorax. Heart/Mediastinum: Unremarkable. No cardiomegaly. Bones/joints: Metallic pin right humeral head Soft tissues: Metallic surgical clips left axillary soft tissues. Low Other findings: Comparison to prior examination similar findings are seen XR/XR chest 1V portable [id number] IMPRESSION: 1. No acute findings. 2. Metallic pin right humeral head. 3. Metallic surgical clips left axillary soft tissues 4. Cardiac device left anterior chest
--- NOTE | 2021-07-30 13:39 | ECG_ITS ---
[facility] Test Date: 2021-07-30 Pat Name: Galina Saba Department: Room: Gender: Female Size Marker: : 1935 Requested By: Carmenza Knox Order Number: [id number] Milad MD: Bill Heard M.D. Measurements Intervals [place] Rate: 65 P: 79 DE: 176 QRS: -67 QRSD: 179 T: 84 QT: 474 QTc: 495 Interpretive Statements ELECTRONIC ATRIAL PACEMAKER ELECTRONIC VENTRICULAR PACEMAKER ABNORMAL RHYTHM ECG Compared to ECG 07/11/2021 11:17:37 No significant changes Electronically Signed On 07-30-2021 16:25:22 CDT by Bill Heard M.D. [email or web address]
--- NOTE | 2021-07-30 13:41 | ED_ITS ---
HPI - General Adult General: Chief complaint: Weakness Stated complaint: GENERAL WEAKNESS Time Seen by Provider: 07/30/21 13:38 History of Present Illness: Patient is an 86-year-old female with a history of ESRD dialysis Friday/Friday/Friday, COPD, carotid stenosis, anemia, CAD?pre senting to the emergency room for evaluation of worsening cough. Patient was initially seen on 07/11/2021, 07/26/2019 for complaints of cough. Since her last visit, patient has had decreased p.o. intake, persistence of cough with pinkish sputum. Patient says that she has not been feeling well has lost over 10 pounds since then. Patient has had decreased appetite and has not eaten in the last few days. Patient reports mild intermittent diarrhea, without any hematochezia or melena. Patient has no complaints or abdominal pain. Denies any chest pain but reports ongoing shortness of breath. Patient tells me that she has had lightheadedness this morning prior to her dialysis. Patient did not feel any lightheadedness or syncope during dialysis. Onset:chronic Duration:ongoing Location:home Severity:moderate Associated symptoms: Deny chest pain, dyspnea, nausea, rash, palpitations or vomiting Review of Systems Const: Denies: fever(s) or chills Eyes: Denies: change in vision ENMT: Denies: mouth pain Card: Denies: chest pain or palpitations Resp: Denies: dyspnea or non-productive cough GI: Denies: abdominal pain, nausea, vomiting or diarrhea : Denies: dysuria Musc: Denies: extremity pain Skin/Breast: Denies: rash or new lesions Neuro: Denies: weakness in extremities Psych: Reports: other (Normal mood) Munir/Lymph: Denies: easy bruising PFS ED PFSH: Medical History (Updated 07/31/21 @ 11:43 by Danis Kevin MD) Anemia Carotid stenosis COPD (chronic obstructive pulmonary disease) Coronary artery disease 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 Diabetes Diastolic congestive heart failure End stage renal disease Essential hypertension GERD (gastroesophageal reflux disease) Intermittent atrial fibrillation Interstitial lung disease Third degree heart block Status post pacemaker placement Surgical History Hemodialysis access site with arteriovenous graft History of laparoscopic cholecystectomy History of tubal ligation S/P hemodialysis catheter insertion Status post colonoscopy (12/30/19) Family History Mother Cancer Lung cancer Father Diabetes Other CAD (coronary artery disease) Denies family history of Anesthesia complication Bleeding disorder Social History Smoking and tobacco status: former smoker Alcohol intake: never Physical Exam Const: COMMON NORMALS: alert HENMT: COMMON NORMALS: atraumatic HEAD & SCALP: atraumatic MOUTH: moist mucous membranes not abnormal Eye: COMMON NORMALS: EOMs intact bilaterally and conjunctivae normal CONJUNCTIVA: Yes conjunctivae normal Neck/C-Spine: COMMON NORMALS: full ROM and supple Resp: COMMON NORMALS: normal respiratory effort OTHER: +fine crackles b/l Cardio: COMMON NORMALS: regular rate RATE: regular rate GI: COMMON NORMALS: Soft to palpation and non-tender PALPATION: Yes Soft to palpation Extremity: COMMON NORMALS: full ROM Neuro: SENSORIUM/ORIENTATION: Yes alert MOTOR EXAM: No Abnormal motor strength present and Other motor observations present (no focal motor deficits) Psych: COMMON NORMALS: speech normal SPEECH: Yes normal speech MOOD & AFFECT: Yes euthymic mood Course Vital Signs: Vital signs: Vital Signs Temperature 98.7 F 07/31/21 11:15 Pulse Rate 71 07/31/21 11:15 Respiratory Rate 16 07/31/21 11:15 Blood Pressure 146/58 07/31/21 11:15 Pulse Oximetry 94 07/31/21 11:15 [facility] - General Adult Medical Decision Making Patient is an 86-year-old female with a history of ESRD dialysis Friday/Friday/Friday, COPD, carotid stenosis, anemia, CAD?presenting to the emergency for generalized weakness, worsening cough, dyspnea and decreased appetite. Work-up to show white count 7.4 x-ray chest did not show any focal pathology. Troponin x2 with delta similar. Creatinine of 2 improved from baseline. Patient reports that her cough and symptoms has still not gotten better. Patient would like to stay in the hospital for further evaluation and observation. Disposition: admission Lab Data : 07/31/21 05:15 07/31/21 05:15 Radiology Impressions Chest X-Ray 07/30/21 13:38 IMPRESSION: 1. No acute findings. 2. Metallic pin right humeral head. 3. Metallic surgical clips left axillary soft tissues 4. Cardiac device left anterior chest Modified Barium Swallow 07/31/21 09:00 IMPRESSION: 1. No aspiration or laryngeal penetration. 2. Mild esophageal dysmotility and mild pharyngeal coating with barium. Please see speech therapist report also for recommendations. Laboratory Results WBC 7.4 10^3/uL (4.0-10.0) 07/30/21 14:24 RBC 2.68 10^6/uL (4.1-5.3) L 07/30/21 14:24 Hgb 9.0 g/dL (11.5-15.3) L 07/30/21 14:24 Hct 27.2 % (37.0-47.0) L 07/30/21 14:24 MCV 101.5 fl (81-99) H 07/30/21 14:24 MCH 33.6 pg (28.0-34.0) 07/30/21 14:24 MCHC 33.1 g/dL (30.0-36.0) 07/30/21 14:24 RDW 15.0 % (12.1-15.1) 07/30/21 14:24 Plt Count 430 10^3/cmm (130-400) H 07/30/21 14:24 MPV 9.8 fL (7.4-10.4) 07/30/21 14:24 Neut % (Auto) 73.8 % 07/30/21 14:24 Lymph % (Auto) 12.3 % 07/30/21 14:24 Stearns % (Auto) 9.4 % 07/30/21 14:24 Eos % (Auto) 3.6 % 07/30/21 14:24 Baso % (Auto) 0.8 % 07/30/21 14:24 Neut # (Auto) 5.46 10^3/uL (1.8-7.7) 07/30/21 14:24 Lymph # (Auto) 0.9 10^3/uL (0.8-4.8) 07/30/21 14:24 Stearns # (Auto) 0.7 10^3/uL (0.2-0.9) 07/30/21 14:24 Eos # (Auto) 0.3 10^3/uL (0.0-0.8) 07/30/21 14:24 Baso # (Auto) 0.1 10^3/uL (0.0-0.1) 07/30/21 14:24 Nucleated RBC % (auto) 0 % 07/30/21 14:24 Nucleated RBCs # 0.0 /100WBC 07/30/21 14:24 Sodium 137 mmol/L (136-145) 07/30/21 14:24 Potassium 3.4 mmol/L (3.5-5.1) L 07/30/21 14:24 Chloride 94 mmol/L (98-107) L 07/30/21 14:24 Carbon Dioxide 33 mmol/L (22-29) H 07/30/21 14:24 Anion Gap 13.4 (5-19) 07/30/21 14:24 BUN 13 mg/dL (8-23) 07/30/21 14:24 Creatinine 2.0 mg/dL (0.5-0.9) H 07/30/21 14:24 GFR Calculation Not Reportable 07/30/21 14:24 Glucose 157 mg/dL (65-115) H 07/30/21 14:24 Calculated Osmolality 287 mOsm/kg (285-295) 07/30/21 14:24 Calcium 9.2 mg/dL (8.5-10.5) 07/30/21 14:24 Total Bilirubin 0.4 mg/dL (0.15-1.2) 07/30/21 14:24 AST 17 U/L (0-32) 07/30/21 14:24 ALT 16 U/L (0-33) 07/30/21 14:24 Alkaline Phosphatase 96 IU/L (35-105) 07/30/21 14:24 Troponin T Baseline 54 ng/L (0-10) H 07/30/21 14:24 Troponin T 120 Minute 51.87 ng/L (0-10) H 07/30/21 15:30 Delta Troponin T -2.13 ABS# (0-10) L 07/30/21 15:30 Total Protein 6.2 g/dL (6.6-8.7) L 07/30/21 14:24 Albumin 3.2 g/dL (3.5-5.2) L 07/30/21 14:24 Globulin 3.0 g/dL (1.3-4.6) 07/30/21 14:24 Lipase 36 U/L (13-60) 07/30/21 14:24 Imaging Data Other Imaging: [facility]iologist's impression: [facility] [address] [place] [address] XRay Report Signed Patient: Galina Saba Unit #: [id number] : 1935 Age/Sex: 86 / F ADM Date: 07/30/21 Loc: ER Room/Bed: Attending Dr: Ordering Provider/Ordering MD: Carmenza Knox MD Date of Service: 07/30/21 Procedure(s): XR chest 1V portable [id number] Accession Number(s): [id number] Report Number: [id number] PROCEDURE INFORMATION: Exam: XR Chest Exam date and time: 07/30/2021 1:45 PM Age: 86 years old Clinical indication: Other: Generalized weakness; Prior surgery; Surgery type: Pacemaker, cardiac stents, tubal TECHNIQUE: Imaging protocol: XR of the chest. Views: 1 view. COMPARISON: CR XR chest 1V portable [id number] 07/25/2021 1:31 PM FINDINGS: Tubes, catheters and devices: Cardiac device left anterior chest in good position. Lungs: Unremarkable. No consolidation. Pleural spaces: Unremarkable. No pleural effusion. No pneumothorax. Heart/Mediastinum: Unremarkable. No cardiomegaly. Bones/joints: Metallic pin right humeral head Soft tissues: Metallic surgical clips left axillary soft tissues. Low Other findings: Comparison to prior examination similar findings are seen XR/XR chest 1V portable [id number] IMPRESSION: 1. No acute findings. 2. Metallic pin right humeral head. 3. Metallic surgical clips left axillary soft tissues 4. Cardiac device left anterior chest ? Dictated By: Diomedes Chamberlain Signed By: Diomedes Chamberlain Signed Date/Time: 07/30/21 1433 DD/ 1345 Discharge Plan Discharge Patient Disposition: Admitted As Inpatient Admit Provider: Danis Kevin Clinical Impression: Generalized weakness, Cough Condition: Stable Discharge Diet: Soft Mechanical Discharge Activity: Increase activity as tolerated Coding Level of Care Code ED Technology Services Manager for Chg Fwd Exam Comprehensive
[2021-07-30 14:18] VITALS: BP 103/41; PULSE 65; RESP 18; TEMP 36.6; O2SAT 95; BMI 20.7
[2021-07-30 14:31] LABS: Basophils # 0.1 10^3/uL (0.0-0.1); Basophils % 0.8 %; Eosinophils # 0.3 10^3/uL (0.0-0.8); Eosinophils % 3.6 %; Hematocrit 27.2 % (37.0-47.0); Lymphocytes # 0.9 10^3/uL (0.8-4.8); Lymphocytes % 12.3 %; Mean Corpuscular HGB Conc 33.1 g/dL (30.0-36.0); Mean Corpuscular Hemoglobin 33.6 pg (28.0-34.0); Mean Corpuscular Volume 101.5 fl (81-99); Mean Platelet Volume 9.8 fL (7.4-10.4); Monocytes # 0.7 10^3/uL (0.2-0.9); Monocytes % 9.4 %; Neutrophils # 5.46 10^3/uL (1.8-7.7); Neutrophils % 73.8 %; Nucleated Red Blood Cells % 0 %; Platelet Count 430 10^3/cmm (130-400); Red Blood Count 2.68 10^6/uL (4.1-5.3); White Blood Count 7.4 10^3/uL (4.0-10.0)
[2021-07-30 14:53] LABS: Alanine Aminotransferase 16 U/L (0-33); Albumin Level 3.2 g/dL (3.5-5.2); Alkaline Phosphatase 96 IU/L (35-105); Anion Gap 13.4 (5-19); Aspartate Amino Transferase 17 U/L (0-32); Blood Urea Nitrogen 13 mg/dL (8-23); Calcium 9.2 mg/dL (8.5-10.5); Carbon Dioxide 33 mmol/L (22-29); Chloride 94 mmol/L (98-107); Glucose 157 mg/dL (65-115); Lipase 36 U/L (13-60); Osmolality Calculated 287 mOsm/kg (285-295); Potassium 3.4 mmol/L (3.5-5.1); Sodium 137 mmol/L (136-145); Total Bilirubin 0.4 mg/dL (0.15-1.2); Total Protein 6.2 g/dL (6.6-8.7)
[2021-07-30 14:54] LABS: Troponin(5th) Baseline 54 ng/L (0-10)
[2021-07-30 15:15] VITALS: BP 135/59; PULSE 59; RESP 18; O2SAT 95
--- NOTE | 2021-07-30 15:39 | ECG_ITS ---
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 Measurements Intervals [place] Rate: 63 P: -55 [place]: 178 QRS: -72 QRSD: 169 T: 87 QT: 478 QTc: 491 Interpretive Statements ELECTRONIC ATRIAL PACEMAKER ELECTRONIC VENTRICULAR PACEMAKER ABNORMAL RHYTHM ECG Compared to ECG 07/30/2021 13:58:27 No significant changes Electronically Signed On 07-30-2021 16:35:13 CDT by Bill Heard M.D. [id number]
[2021-07-30 16:25] LABS: Troponin 5 2HR 51.87 ng/L (0-10)
[2021-07-30 16:26] LABS: Troponin 5 2HR Delta -2.13 ABS# (0-10)
--- NOTE | 2021-07-30 18:45 | P.HP_ITS ---
Providers/Chief Complaint Primary Care Provider: Magdiel Amador MD Chief Complaint: GENERAL WEAKNESS History of Present Illness Pleasant 86-year-old lady with history of ESRD on dialysis, anemia, melanotic stools without abnormal findings on EGD or colonoscopy, COPD, supplemental oxygen only at night, CAD, was assessed in ER on 07/11 and 07/25 due to recurrent cough, at times small amount of blood in the sputum, generalized weakness, r eports no chest pain or pressure, perhaps mild orthopnea, denies any lower extremity edema, has been having some intermittently dark stools States that on discussion with her primary provider regarding her symptoms was assessed and prescribed Flonase. Work-up in ER from last admissions includes negative coronavirus PCR on 07/25. Chest x-rays with no acute findings, cardiomegaly, pacemaker. CTA from December 2020 generalized interstitial edema consistent with vascular congestion. Central midsternal adenopathy slightly increased, likely reactive. Emphysema. Daughter reports she has been having frequent episodes of choking with food or drink. She has been afebrile. They are not sure where the history of interstitial lung disease comes from notes listed in the chart. She has not had a pulmonary function test from what she remembers. 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 During discussion in ER yesterday appears to be fluctuating, down into as low as 86-87% with intermittently good waveform. Review of Systems Const: Reports: fatigue; Denies: fever(s), chills, body aches or malaise Eyes: Denies: change in vision, eye discomfort or eye redness ENMT: Denies: throat pain, oral sores or ear or mastoid pain Card: Reports: orthopnea; Denies: chest pain, edema or pre-syncope Resp: Reports: productive cough; Denies: dyspnea, change in phlegm color or hemoptysis GI: Denies: abdominal pain, nausea, vomiting, diarrhea, constipation, hematochezia or melena : Denies: flank pain, urinary frequency or hematuria Musc: Denies: back pain, joint swelling or joint redness Skin/Breast: Denies: rash or new lesions Neuro: Denies: headache(s), numbness in extremities, weakness in extremities, dizziness, confusion or seizure-like activity Endo: Denies: polyuria or polydipsia Munir/Lymph: Denies: easy bleeding or tender lymph nodes All/Imm: Denies: urticaria or tongue swelling Medications/Allergies Home Medications Medication Instructions Recorded Confirmed Last Taken Type alprazolam 0.25 mg tablet 0.25 mg PO DAILY PRN 04/15/19 07/30/21 07/29/20 History linagliptin 5 mg tablet (Tradjenta) 5 mg PO DAILY 04/15/19 07/30/21 07/30/21 History omeprazole 40 mg capsule,delayed 40 mg PO DAILY 04/15/19 07/30/21 07/30/21 History release metoprolol succinate 25 mg 12.5 mg PO DAILY 05/31/19 07/30/21 07/30/21 History tablet,extended release 24 hr cholecalciferol (vitamin D3) 50 50 mcg PO DAILY 06/16/19 07/30/21 07/30/21 History mcg (2,000 unit) tablet (Vitamin D3) vit B,C-folic ac 800 mcg-zinc 12.5 1 tab PO QPM 06/16/19 07/30/21 07/29/21 History mg-selen-D3 2,000 unit-vit E tablet (RenaPlex-D) furosemide 40 mg tablet 40 mg PO DAILY 10/07/19 07/30/21 07/30/21 History atorvastatin 40 mg tablet 40 mg PO BEDTIME 11/17/19 07/30/21 07/29/21 History clopidogrel 75 mg tablet (Plavix) 75 mg PO DAILY 11/17/19 07/30/21 07/30/21 History multivitamin 1 tab PO DAILY 11/17/19 07/30/21 07/30/21 History nitroglycerin 0.4 mg sublingual 0.4 mg SUBLINGUAL Q5M PRN 11/17/19 07/30/21 Unknown History tablet (Nitrostat) acetaminophen 500 mg tablet 500 - 1,000 mg PO PRN 07/31/20 07/30/21 Unknown History (Tylenol Extra Strength) amlodipine 5 mg tablet 7.5 mg PO DAILY 07/31/20 07/30/21 07/30/21 History calcium acetate(phosphat bind) 667 667 mg PO TID 07/31/20 07/30/21 07/30/21 History mg capsule calcium carbonate 200 mg calcium 200 mg PO BID PRN 07/31/20 07/30/21 Unknown History (500 mg) chewable tablet (Tums) fluticasone propionate 50 1 spray INTRANASAL DAILY 07/30/21 07/30/21 07/30/21 History mcg/actuation nasal spray,suspension losartan 50 mg tablet 50 mg PO DAILY 07/30/21 07/30/21 07/30/21 History vit C,E,zinc,copper-vesdj9i 250 1 cap PO DAILY 07/30/21 07/30/21 07/30/21 History mg-lutein 5 mg-zeaxanthin 1 mg capsule Allergies Allergy/AdvReac Type Severity Reaction Status Date / Time lisinopril Allergy Unknown Unknown Verified 07/30/21 16:13 morphine AdvReac Intermediate ADR-Nausea Verified 07/30/21 16:13 PFSH Acute PFSH: Medical History Anemia Carotid stenosis COPD (chronic obstructive pulmonary disease) Coronary artery disease 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 Diabetes Diastolic congestive heart failure End stage renal disease Essential hypertension GERD (gastroesophageal reflux disease) Intermittent atrial fibrillation Interstitial lung disease Third degree heart block Status post pacemaker placement Surgical History Hemodialysis access site with arteriovenous graft History of laparoscopic cholecystectomy History of tubal ligation S/P hemodialysis catheter insertion Status post colonoscopy (12/30/19) Family History Mother Cancer Lung cancer Father Diabetes Other CAD (coronary artery disease) Denies family history of Anesthesia complication Bleeding disorder Social History Smoking and tobacco status: former smoker Alcohol intake: never Vitals/I&O/Wt Last Vital Signs Temp 97.9 F 07/30/21 14:18 Pulse 59 L 07/30/21 15:15 Resp 18 07/30/21 15:15 BP 135/59 07/30/21 15:15 Pulse Ox 95 07/30/21 15:15 Weight last 48 hrs Weight 49.895 kg Physical Exam Const: COMMON NORMALS: alert GENERAL APPEARANCE: cooperative and frail appearing ORIENTATION/CONSCIOUSNESS: Yes awake HENMT: COMMON NORMALS: normocephalic, EAC's normal, Normal external nose present and moist oral mucous membranes HEAD & SCALP: normocephalic NOSE: Normal external nose present EXTERNAL AUDITORY CANAL: EAC's normal Neck/C-Spine: COMMON NORMALS: no meningeal signs Chest: CHEST: Yes Symmetrical chest wall rise Resp: COMMON NORMALS: clear to auscultation bilaterally AUSCULTATION: clear to auscultation bilaterally Cardio: COMMON NORMALS: regular rate, regular rhythm and No murmurs present (Cardio) RATE: regular rate RHYTHM: regular rhythm GI: COMMON NORMALS: Normal to inspection, nondistended, normoactive bowel sounds present, Soft to palpation and non-tender PALPATION: Yes Soft to palpation Extremity: COMMON NORMALS: no pedal edema Neuro: COMMON NORMALS: moves all extremities SENSORIUM/ORIENTATION: Yes alert MENINGEAL SIGNS: Yes no meningeal signs Psych: COMMON NORMALS: mental status grossly normal Skin: COMMON NORMALS: no wounds RASHES: no rashes Data : 07/30/21 14:24 07/30/21 14:24 A&P Assessment and plan (1) Cough: History of allergy noted, she is not aware of where this came from. Denies ever having a PFT. Will need PFT after discharge. Additionally ILD may be secondary to recurrent aspiration as cough is reported with food and drink. MBS a year ago without aspiration but with mild pooling of barium in the vallecula, moderate esophageal dysmotility. No spiral obstruction. Repeat MBS. ST assessment. Alternatively more rare possibility, chronic cough with losartan. Consider discontinuation of the medication. Outpatient PFT. Status: Acute (2) Generalized weakness: Possibly secondary to progression of ILD, appears to have hypoxia down to 86-87% intermittently while at rest with intermittently good waveform. Other times in the low 90s. Uses oxygen at night, but may need oxygen [id number], especially with exertion. Check TSH. COVID-19 negative. Reports orthopnea, history of CHF, CAD, assess TTE. Status: Acute (3) Dark stools: Continue omeprazole. Previously melanotic stools, some hematochezia, with negative EGD and colonoscopy reported by daughter. Follow-up with primary provider for discussion regarding consideration of repeat EGD and colonoscopy versus referral for capsule endoscopy or deep enteroscopy. Receives iron infusions at dialysis center. Status: Acute Plan ESRD, HD MWF Anemia COPD CAD Carotid stenosis DM2 Diastolic CHF Intermittent A. fib Third-degree AV block s/p PPM Attestations Medical Necessity Statement*: Place in observation for additional assessment and management of recurrent symptoms of cough, dyspnea, hypoxia. Coding Level of Care Code Acute Insulator Apprentice for Chg Fwd Diagnoses Cough R05.9 Generalized weakness R53.1 Dark stools R19.5
--- NOTE | 2021-07-30 19:39 | ECG_ITS ---
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 Measurements Intervals [place] Rate: 70 P: 40 RI: 174 QRS: -66 QRSD: 170 T: 102 QT: 433 QTc: 468 Interpretive Statements ELECTRONIC ATRIAL PACEMAKER ELECTRONIC VENTRICULAR PACEMAKER Compared to ECG 07/30/2021 15:27:36 No significant changes Electronically Signed On 07-31-2021 18:12:25 CDT by Pedro Silvestre M.D. [id number]
[2021-07-30 21:05] LABS: Troponin 5 6HR 60.15 ng/L (0-10)
[2021-07-30 21:18] LABS: Troponin 5 6HR Delta 6.15 ng/L (0-12)
[2021-07-30 22:33] VITALS: BP 176/62; PULSE 75; RESP 17; TEMP 37.2; O2SAT 93
[2021-07-30 22:40] VITALS: BP 162/67; PULSE 78; RESP 18; O2SAT 100
[2021-07-30] MEDS: acetaminophen 500 mg Tablet PO (23:06)
[2021-07-30] MEDS: atorvastatin 40 mg Tablet PO (23:06)
[2021-07-30] MEDS: calcium acetate 667 mg Capsule PO (23:06)
[2021-07-30] MEDS: ALPRAZolam 0.5 mg Tablet 0.25 MG PO (23:07)
[2021-07-30 23:48] VITALS: O2SAT 96
[2021-07-30 23:51] VITALS: PULSE 72; RESP 16; O2SAT 96
[2021-07-31] VITALS: BP 163/57; PULSE 82; RESP 17; TEMP 37.3; O2SAT 94
--- NOTE | 2021-07-31 01:07 | USCV_ITS ---
Galina Saba Age: 86 Gender: F : 1935 Exam Date: 07/31/2021 01:12 Ordering Phys: Danis Kevin MD Technologist: TYSHAWN [place] [facility] [place]: Dyspnea / Hypoxia BP: 140 / 50 HR: 75 Rhythm: Sinus Technical Quality: Adequate MEASUREMENTS (Male / Female) Normal Values 2D ECHO LV Diastolic Diameter PLAX 4.3 cm 4.2 - 5.9 / 3.9 - 5.3 cm LV Systolic Diameter PLAX 2.1 cm IVS Diastolic Thickness 1.6 cm 0.6 - 1.0 / 0.6 - 0.9 cm IVS Systolic Thickness 2.0 cm LVPW Diastolic Thickness 1.7 cm 0.6 - 1.0 / 0.6 - 0.9 cm LVPW Systolic Thickness 4.0 cm LVOT Diameter 2.0 cm LV Ejection Fraction 2D Teich 81.4 % LV Ejection Fraction MOD 2C 67.7 % LV Ejection Fraction 2C AL 69.6 % LA Diameter 4.1 cm LA Width 4.0 cm LA Height 5.2 cm RA Width 4.2 cm RA Height 4.9 cm Aorta at Sinotubular Diameter 1.9 cm IVC Diameter 2.1 cm M-MODE Aortic Annulus Diameter 2.1 cm LA Ao Ratio MM 2.3 MV E Point Septal Separation 0.8 cm DOPPLER AV Peak Velocity 227.5 cm/s LVOT Peak Velocity 118.0 cm/s AV Area Cont Eq vti 1.8 cm squared AV Area Cont Eq pk 1.6 cm squared MV Peak Velocity 175.0 cm/s MV Area PHT 2.3 cm squared Mitral E to A Ratio 1.1 MV E' Velocity 169.0 cm/s TR Peak Velocity 360.2 cm/s TR Peak Gradient 51.9 mmHg TR Mean Velocity 247.5 cm/s TR Mean Gradient 28.9 mmHg TR Velocity Time Integral 119.9 cm Right Atrial Pressure 10.0 mmHg Pulmonary Artery Systolic Pressu 61.9 mmHg PV Peak Velocity 145.0 cm/s RV Acceleration Time 0.2 s RV Ejection Time 0.3 s RV AcT/ET 0.5 FINDINGS Left Ventricle Normal LV size. LV systolic function is normal with EF 55 to 60%. No regional wall motion abnormalities are seen. Right Ventricle The right ventricle is normal in size and function. Pacemaker lead is seen Right Atrium The right atrium is normal in size. Pacemaker lead is seen Left Atrium The left atrium is dilated Mitral Valve Severe mitral annular calcification without significant stenosis or prolapse. There is mild mitral regurgitation. Aortic Valve Aortic valve is thickened. Mild aortic stenosis with aortic valve area of 1.89 cm2. Mean gradient across aortic valve of 11.7 mmHg. There is no aortic regurgitation. Tricuspid Valve Structurally normal tricuspid valve without significant stenosis. Mild to moderate tricuspid regurgitation. RVSP is 45-50mmHg. This is consistent with moderate pulmonary hypertension Pulmonic Valve Not well visualized. Pericardium Normal pericardium without effusion. Aorta Normal ascending aorta dimension. IVC CONCLUSIONS LV systolic function is normal with EF of 55 to 60%. Left atrium is dilated. Mild mitral regurgitation. Severe mitral annular calcification is seen. Mild aortic stenosis with aortic valve area of 1.89 cm2. Mean gradient across aortic valve is 11.7 mmHg Mild to moderate tricuspid regurgitation. Moderate pulmonary hypertension Compared to prior echocardiogram from 04/20/2019, patient now has moderate pulmonary hypertension Pedro Silvestre MD (Electronically Signed) Final Date: 31 July 2021 08:31 S
[2021-07-31 04:00] VITALS: BP 160/55; PULSE 67; RESP 16; TEMP 37.2; O2SAT 100
[2021-07-31 06:10] LABS: Basophils # 0.1 10^3/uL (0.0-0.1); Basophils % 0.7 %; Eosinophils # 0.4 10^3/uL (0.0-0.8); Hematocrit 28.3 % (37.0-47.0); Hemoglobin 8.9 g/dL (11.5-15.3); Lymphocytes # 0.8 10^3/uL (0.8-4.8); Lymphocytes % 10.7 %; Mean Corpuscular HGB Conc 31.4 g/dL (30.0-36.0); Mean Corpuscular Hemoglobin 32.6 pg (28.0-34.0); Mean Corpuscular Volume 103.7 fl (81-99); Mean Platelet Volume 10.1 fL (7.4-10.4); Monocytes # 0.6 10^3/uL (0.2-0.9); Monocytes % 8.5 %; Neutrophils # 5.53 10^3/uL (1.8-7.7); Neutrophils % 74.7 %; Nucleated Red Blood Cells % 0 %; Platelet Count 449 10^3/cmm (130-400); Red Blood Count 2.73 10^6/uL (4.1-5.3); Red Cell Distribution Width 15.3 % (12.1-15.1); White Blood Count 7.4 10^3/uL (4.0-10.0)
[2021-07-31 06:38] LABS: Alanine Aminotransferase 15 U/L (0-33); Albumin Level 3.3 g/dL (3.5-5.2); Alkaline Phosphatase 97 IU/L (35-105); Anion Gap 14.2 (5-19); Aspartate Amino Transferase 18 U/L (0-32); Blood Urea Nitrogen 18 mg/dL (8-23); Calcium 9.8 mg/dL (8.5-10.5); Carbon Dioxide 32 mmol/L (22-29); Chloride 98 mmol/L (98-107); Globulin 3.2 g/dL (1.3-4.6); Glucose 103 mg/dL (65-115); Osmolality Calculated 292 mOsm/kg (285-295); Potassium 4.2 mmol/L (3.5-5.1); Sodium 140 mmol/L (136-145); Total Bilirubin 0.4 mg/dL (0.15-1.2); Total Protein 6.5 g/dL (6.6-8.7)
[2021-07-31 07:30] VITALS: BP 135/50; PULSE 76; RESP 15; TEMP 36.7; O2SAT 95
[2021-07-31] MEDS: amlodipine 5 mg Tablet 7.5 MG PO (08:25)
[2021-07-31] MEDS: clopidogrel 75 mg Tablet PO (08:25)
[2021-07-31] MEDS: metoprolol succinate ER (24 HR) 25 mg Tablet 12.5 MG PO (08:27)
[2021-07-31] MEDS: FUROsemide 40 mg Tablet PO (08:29)
[2021-07-31] MEDS: cholecalciferol (vitamin D3) 1,000 unit Tablet 2000 UNIT PO (08:30)
[2021-07-31] MEDS: calcium acetate 667 mg Capsule PO (08:30)
--- NOTE | 2021-07-31 09:00 | FL_ITS ---
WS: [id number] MODIFIED BARIUM SWALLOW HISTORY: Oropharyngeal dysphagia FLUOROSCOPY TIME: 1min [id number] # of spot films: 0 Modified barium swallow was performed by the speech pathologist. Fluoroscopy was provided with the pa tient in a lateral projection. Multiple food consistencies were provided. Comparison: 08/14/2020. Patient was able to swallow all food consistencies without difficulty. No aspiration or laryngeal pen etration. There is mild pooling of the barium in the oropharynx. There is mild dilatation and dysmoti lity of the esophagus but no significant delay in emptying. No reflux identified. Patient swallowed t he barium tablet with no difficulty. FL/FL barium swallow modifd [id number] IMPRESSION: 1. No aspiration or laryngeal penetration. 2. Mild esophageal dysmotility and mild pharyngeal coating with barium. Please see speech therapist report also for recommendations.
[2021-07-31] MEDS: pantoprazole DR 40 mg Tablet PO (10:08)
[2021-07-31] MEDS: fluticasone nasal spray 16gm Btl 1 SPRAY INTRANASAL (10:08)
--- NOTE | 2021-07-31 10:40 | PC.CHAP ---
Pastoral Care Encounter/Spiritual Assessment Type of Contact [] Declined r d internship visit [] Patient/Family/Request visit [] Outpatient visit [] Follow-up visit [] Physician referral [] Code/Alert [x] Routine visit [] Staff referral [] Actively dying [] Patient sleeping [] Family support [] [] Out of room [] Palliative care [] [x] Receiving care in room [] Pre-surgical visit [] Trauma [] Long length of stay [] ICU visit [] Other: Relational/Emotional Strength [] Patient feels connected with others/family/visitors/staff [] Distress [] Loneliness/isolation [] Abandonment Spirituality of Patient [] Person of Fannie [] Attends Zoroastrian of their Fannie [] Believes in Prayer [] Reads Bible or Taoist materials [] There are Spiritual issues to be addressed Pharmacy Laboratory Technician Interventions [] Prayer [] Active listening [] Non-anxious presence [] Spiritual/emotional support [] Crisis/trauma care [] Spiritual counseling [] Bereavement support [] Provided bereavement packet [] Provided Bible/devotional materials [] Provided toy/stuffed animal, coloring book to patient or family member [] Provided Communion [] Anointing/[place] [] Salvation [] Completed spiritual assessment [] Other: Impact on Illness or Injury [] Angry [] Fearful [] Anxious [] Often cries [] Exhaustion [] Unable to work [] Unable to attend advent [] Unable to walk/stand [] Unable to read [] Unable to drive [] Unable to eat/drink [] Unable to sleep [] Unable to be with family [] Patient intubated [] Other: Summary Time spent with patient
[2021-07-31 11:15] VITALS: BP 146/58; PULSE 71; RESP 16; TEMP 37.1; O2SAT 94
[2021-07-31] MEDS: acetaminophen 500 mg Tablet PO (11:45)
--- NOTE | 2021-07-31 12:02 | PM.DCS ---
Discharge Providers Date of Admission: 07/30/21 16:15 Date of Discharge: July 31, 2021 Attending Provider at Admission: Danis Kevin Attending Provider at Discharge: Danis Kevin Primary Care Provider: Magdiel Amador MD Diagnoses at Discharge Discharge Diagnosis (1) Cough: Status: Acute (2) Generalized weakness: Status: Acute (3) Dark stools: Status: Acute (4) Dysphagia: Status: Acute (5) Esophageal dysmotility: Status: Acute (6) Hypoxia: Status: Acute (7) Interstitial lung disease: Status: Acute Other Information Additional DC diagnoses/information: ESRD, HD MWF Anemia COPD CAD Carotid stenosis DM2 Diastolic CHF Intermittent A. 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 generalized weakness, reports no chest pain or pressure, perhaps mild orthopnea, denies any lower extremity edema, has been having some intermittently dark stools States that on discussion with her primary provider regarding her symptoms was assessed and prescribed Flonase. Work-up in ER from last admissions includes negative coronavirus PCR on 07/25.? Chest x-rays with no acute findings, cardiomegaly, pacemaker.? CTA from December 2020 generalized interstitial edema consistent with vascular congestion.? Central midsternal adenopathy slightly increased, likely reactive.? Emphysema. Daughter reports she has been having frequent episodes of choking with food or drink.? She has been afebrile.? They are not sure where the history of interstitial lung disease comes from notes listed in the chart.? She has not had a pulmonary function test from what she remembers.? She is not seeing a audit consultant. During discussion in ER yesterday appears to be fluctuating, down into as low as 86-87% with intermittently good waveform. Hospital Course Hospital Course During hospitalization underwent additional assessment by multiple p.m. swallow study, speech therapy evaluation, recommendation for mechanical soft diet, continue aspiration precautions. However, noted esophageal dysmotility, due to which she is referred for barium swallow study. Please follow-up results. Please revisit regarding concern of possible recurrent aspiration given recurrent cough. Previously reported interstitial lung disease, although she will daughter are not aware regarding ever having PFTs. She is referred for pulmonary function testing evaluation. COVID-19 PCR negative. TSH was normal. Given history of cardiac disease, reporting some orthopnea, was assessed also by echocardiogram, with normal ejection fraction noted, mild mitral regurgitation, mild aortic stenosis, mild to moderate cuspid regurgitation. Noted moderate pulmonary hypertension. For this is also referred for additional assessment by pulmonology and cardiology. With reported dark stools at home, normocytic anemia, occult blood stool was requested hospital, but could not be collected. She is asked to increase omeprazole frequency to BID. Hemoccult is requested for after discharge as well. Please follow-up. Follow-up anemia, consider endoscopic evaluation. Physical Exam Narrative: Daughter accompanying her at bedside. Later on additional findings and discharge recommendations discussed with her and her son and his family at bedside. Const: COMMON NORMALS: alert GENERAL APPEARANCE: cooperative ORIENTATION/CONSCIOUSNESS: Yes awake HENMT: COMMON NORMALS: normocephalic, EAC's normal, Normal external nose present and moist oral mucous membranes HEAD & SCALP: normocephalic NOSE: Normal external nose present EXTERNAL AUDITORY CANAL: EAC's normal Neck/C-Spine: COMMON NORMALS: no meningeal signs Chest: CHEST: Yes Symmetrical chest wall rise Resp: COMMON NORMALS: clear to auscultation bilaterally AUSCULTATION: clear to auscultation bilaterally Cardio: COMMON NORMALS: regular rate, regular rhythm and No murmurs present (Cardio) RATE: regular rate RHYTHM: regular rhythm GI: COMMON NORMALS: Normal to inspection, nondistended, normoactive bowel sounds present, Soft to palpation and non-tender PALPATION: Yes Soft to palpation Extremity: COMMON NORMALS: no pedal edema Neuro: COMMON NORMALS: moves all extremities SENSORIUM/ORIENTATION: Yes alert MENINGEAL SIGNS: Yes no meningeal signs Psych: COMMON NORMALS: mental status grossly normal Skin: COMMON NORMALS: no wounds RASHES: no rashes Discharge Data Studies Completed and Pending Completed Studies During Hospitalization Category Date Time Status FL barium swallow modifd [id number] Routine Exams 07/31/21 09:00 Completed XR chest 1V portable [id number] Stat Exams 07/30/21 13:38 Completed CV. echo complete* [id number] Routine Ultrasound 07/31/21 01:07 Completed Pending at discharge Category Date Time Status Occult Blood Stool [Immunochemical Fecal OCB] Routine Lab 07/30/21 22:33 Uncollected UA w/Reflex to Microscope [Urinalysis] Stat Lab 07/30/21 13:38 Ordered Radiology Impressions Chest X-Ray 07/30/21 13:38 IMPRESSION: 1. No acute findings. 2. Metallic pin right humeral head. 3. Metallic surgical clips left axillary soft tissues 4. Cardiac device left anterior chest Modified Barium Swallow 07/31/21 09:00 IMPRESSION: 1. No aspiration or laryngeal penetration. 2. Mild esophageal dysmotility and mild pharyngeal coating with barium. Please see speech therapist report also for recommendations. Laboratory Results WBC 7.4 10^3/uL (4.0-10.0) 07/31/21 05:15 RBC 2.73 10^6/uL (4.1-5.3) L 07/31/21 05:15 Hgb 8.9 g/dL (11.5-15.3) L 07/31/21 05:15 Hct 28.3 % (37.0-47.0) L 07/31/21 05:15 MCV 103.7 fl (81-99) H 07/31/21 05:15 MCH 32.6 pg (28.0-34.0) 07/31/21 05:15 MCHC 31.4 g/dL (30.0-36.0) D 07/31/21 05:15 RDW 15.3 % (12.1-15.1) H 07/31/21 05:15 Plt Count 449 10^3/cmm (130-400) H 07/31/21 05:15 MPV 10.1 fL (7.4-10.4) 07/31/21 05:15 Neut % (Auto) 74.7 % 07/31/21 05:15 Lymph % (Auto) 10.7 % 07/31/21 05:15 [place] % (Auto) 8.5 % 07/31/21 05:15 Eos % (Auto) 5.0 % 07/31/21 05:15 Baso % (Auto) 0.7 % 07/31/21 05:15 Neut # (Auto) 5.53 10^3/uL (1.8-7.7) 07/31/21 05:15 Lymph # (Auto) 0.8 10^3/uL (0.8-4.8) 07/31/21 05:15 [place] # (Auto) 0.6 10^3/uL (0.2-0.9) 07/31/21 05:15 Eos # (Auto) 0.4 10^3/uL (0.0-0.8) 07/31/21 05:15 Baso # (Auto) 0.1 10^3/uL (0.0-0.1) 07/31/21 05:15 Nucleated RBC % (auto) 0 % 07/31/21 05:15 Nucleated RBCs # 0.0 /100WBC 07/31/21 05:15 Sodium 140 mmol/L (136-145) 07/31/21 05:15 Potassium 4.2 mmol/L (3.5-5.1) 07/31/21 05:15 Chloride 98 mmol/L (98-107) 07/31/21 05:15 Carbon Dioxide 32 mmol/L (22-29) H 07/31/21 05:15 Anion Gap 14.2 (5-19) 07/31/21 05:15 BUN 18 mg/dL (8-23) 07/31/21 05:15 Creatinine 3.3 mg/dL (0.5-0.9) H 07/31/21 05:15 GFR Calculation Not Reportable 07/31/21 05:15 Glucose 103 mg/dL (65-115) 07/31/21 05:15 Calculated Osmolality 292 mOsm/kg (285-295) 07/31/21 05:15 Calcium 9.8 mg/dL (8.5-10.5) 07/31/21 05:15 Total Bilirubin 0.4 mg/dL (0.15-1.2) 07/31/21 05:15 AST 18 U/L (0-32) 07/31/21 05:15 ALT 15 U/L (0-33) 07/31/21 05:15 Alkaline Phosphatase 97 IU/L (35-105) 07/31/21 05:15 Troponin T Baseline 54 ng/L (0-10) H 07/30/21 14:24 Troponin T 120 Minute 51.87 ng/L (0-10) H 07/30/21 15:30 Delta Troponin T -2.13 ABS# (0-10) L 07/30/21 15:30 Troponin T Hi Sens 6Hr 60.15 ng/L (0-10) H 07/30/21 20:40 Troponin T Hi Sens 6Hr Delta 6.15 ng/L (0-12) 07/30/21 20:40 Total Protein 6.5 g/dL (6.6-8.7) L 07/31/21 05:15 Albumin 3.3 g/dL (3.5-5.2) L 07/31/21 05:15 Globulin 3.2 g/dL (1.3-4.6) 07/31/21 05:15 Lipase 36 U/L (13-60) 07/30/21 14:24 TSH 2.60 uIU/mL (0.27-4.20) 07/31/21 05:15 Vitals Last Vital Signs Temp 98.7 F 07/31/21 11:15 Pulse 71 07/31/21 11:15 Resp 16 07/31/21 11:15 BP 146/58 07/31/21 11:15 Pulse Ox 94 07/31/21 11:15 Discharge Plan Discharge Patient Disposition: Home Condition: Stable Prescriptions: Continued alprazolam 0.25 mg tablet 0.25 mg PO DAILY PRN (Reason: Anxiety) 0RF Tradjenta 5 mg tablet 5 mg PO DAILY 0RF metoprolol succinate 25 mg Tablet Extended Release 24 Hr 12.5 mg PO DAILY 0RF furosemide 40 mg tablet 40 mg PO DAILY 0RF amlodipine 5 mg tablet 7.5 mg PO DAILY 0RF acetaminophen [Tylenol Extra Strength] 500 mg Tablet 500 - 1,000 mg PO PRN 0RF calcium carbonate [Tums] 200 mg calcium (500 mg) Tablet,Chewable 200 mg PO BID PRN (Reason: Heartburn) 0RF calcium acetate(phosphat bind) 667 mg capsule 667 mg PO TID 0RF RenaPlex-D 800 mcg-12.5 mg -2,000 unit tablet 1 tab PO QPM 0RF cholecalciferol (vitamin D3) [Vitamin D3] 50 mcg (2,000 unit) Tablet 50 mcg PO DAILY 0RF multivitamin Tablet 1 tab PO DAILY 0RF atorvastatin 40 mg Tablet 40 mg PO BEDTIME 0RF clopidogrel [Plavix] 75 mg Tablet 75 mg PO DAILY 0RF nitroglycerin [Nitrostat] 0.4 mg Tablet, Sublingual 0.4 mg SUBLINGUAL Q5M PRN (Reason: Chest Pain) 0RF C,E,zinc,copper [id number] 250-5-1 mg Capsule 1 cap PO DAILY 0RF losartan 50 mg Tablet 50 mg PO DAILY 0RF fluticasone propionate 50 mcg/actuation [place],Suspension 1 spray INTRANASAL DAILY 0RF Rx Instructions: administer into each nostril Changed omeprazole 40 mg capsule,delayed release(DR/EC) 40 mg PO BIDWM Qty: 90 0RF Discharge Orders: Discharge Order (Routine); Ordered 07/31/21 Ordered By: Danis Kevin Other Ambulatory Orders: [place] barium swallow [id number] (Routine) Timeframe: 1 Week Facility: [facility] - Location: Radiology [facility] Ordered By: Danis Kevin Immunochemical Fecal OCB (Routine) Timeframe: 1 Week Facility: [facility] - Location: Lab - Main Lab Ordered By: Danis Kevni Pulmonary Function Screen with Bronchodilator (Routine) Timeframe: 1 Week Facility: [facility] - Location: Respiratory Therapy Ordered By: Danis Kevin Referrals: Arvind Morel MD [Physician] - 08/30/21 12:45 pm (Pulm HTN, hypoxia, ILD? PFT) Gale Macias FNP [Nurse Practitioner] - 08/24/21 8:30 am Magdiel Amador MD [Primary Care Provider] - 08/02/21 10:30 am Mireya Reyes MD [Physician] - 08/24/21 8:45 am Discharge Diet: Soft Mechanical Discharge Activity: Increase activity as tolerated and Oxygen as instructed Patient Instructions: Using Oxygen at Home (GEN), Hypoxia (GEN), Dysphagia (GEN), Aspiration Precautions (GEN) Activity Restrictions/Additional Instructions: Please complete barium swallow study, follow-up with your primary doctor regarding results and esophageal dysmotility, recurrence of possible aspiration. Maintain strict aspiration precautions. [facility] WILL CALL WITH APPOINTMENT Discuss with your primary doctor possible ILD, results of pulmonary function testing. Please follow-up with field marketing specialist. [facility] WILL CALL WITH APPOINTMENT Discuss with your primary doctor regarding suspected pulmonary hypertension, follow-up with field marketing specialist and art objects repairer. Use oxygen as per recommendation of home oxygen study evaluation. Please complete Hemoccult test. Follow-up with your primary doctor for reassessment of anemia, increase omeprazole frequency to twice daily, discuss consideration of endoscopic evaluation with your primary doctor. Discharge Attestations Time Spent in Discharge Care*: greater than 30 min Quality Metrics Clinical Quality Measures [ No reported AMI, CVA or VTE this stay] Coding Level of Care Code Acute Chg FW DC note Exam Comprehensive Diagnoses Cough R05.9 Generalized weakness R53.1 Dark stools R19.5 Dysphagia R13.10 Esophageal dysmotility K22.4 Hypoxia R09.02 Interstitial lung disease J84.9
[2021-07-31 15:23] VITALS: BP 164/65; PULSE 68; RESP 17; TEMP 36.6; O2SAT 93
== END 2021-07-31 15:49 | disposition home or self-care (01) ==
LOC: ER 14:08 → MEDSURG 21:01
PROVIDERS: Admitting Provider Internal Medicine; Emergency Provider Emergency Medicine; PCP Family Medicine; Visit Provider Internal Medicine
DX: R05.9 Cough, unspecified (principal); R53.1 Weakness; R19.5 Other fecal abnormalities; R13.10 Dysphagia, unspecified; K22.4 Dyskinesia of esophagus; R09.02 Hypoxemia; J84.9 Interstitial pulmonary disease, unspecified; J44.9 Chronic obstructive pulmonary disease, unspecified; I25.10 Atherosclerotic heart disease of native coronary artery without angina pectoris; E11.22 Type 2 diabetes mellitus with diabetic chronic kidney disease; I13.2 Hypertensive heart and chronic kidney disease with heart failure and with stage 5 chronic kidney disease, or end stage renal disease; I50.30 Unspecified diastolic (congestive) heart failure; N18.6 End stage renal disease; I44.2 Atrioventricular block, complete; Z87.891 Personal history of nicotine dependence; Z99.2 Dependence on renal dialysis
CPT/HCPCS: 36415; 71045; 74230; 80053; 83690; 84443; 84484; 85025; 92611; 93005; 93306; 94664; 99285; G0378

== ENCOUNTER → 2021-08-16 13:45 | Outpatient (BNVA) | payer MEDICARE, MEDICAID, SELFPAY | PROVIDERS: PCP Family Medicine; Visit Provider Surgery | DX: R13.10 Dysphagia, unspecified (principal) | CPT/HCPCS: 99203 ==

== ENCOUNTER 2021-08-24 06:00 | Outpatient (CLI) | payer MEDICARE, MEDICAID, SELFPAY | END 2021-08-24 23:00 | disposition home or self-care (01) | LOC: SLEEP 12-25 00:47 | PROVIDERS: PCP Family Medicine; Visit Provider Family Medicine | DX: G47.10 Hypersomnia, unspecified (principal) | CPT/HCPCS: 93280 ==

== ENCOUNTER → 2021-08-24 08:25 | Outpatient (BNVA) | payer MEDICARE, MEDICAID, SELFPAY | PROVIDERS: PCP Family Medicine; Visit Provider Internal Medicine Cardiovascular Disease | DX: Z45.010 Encounter for checking and testing of cardiac pacemaker pulse generator [battery] (principal) | CPT/HCPCS: 93280 ==

== ENCOUNTER → 2021-08-30 12:35 | Outpatient (BNVA) | payer MEDICARE, MEDICAID, SELFPAY | PROVIDERS: PCP Family Medicine; Visit Provider Internal Medicine Pulmonary Disease | DX: R06.02 Shortness of breath (principal); R05.9 Cough, unspecified; K22.4 Dyskinesia of esophagus; R06.00 Dyspnea, unspecified; J44.9 Chronic obstructive pulmonary disease, unspecified; I25.10 Atherosclerotic heart disease of native coronary artery without angina pectoris; I48.0 Paroxysmal atrial fibrillation; N18.6 End stage renal disease; Z99.2 Dependence on renal dialysis; Z87.891 Personal history of nicotine dependence; Z99.81 Dependence on supplemental oxygen | CPT/HCPCS: 99204 ==

== ENCOUNTER 2021-10-11 10:28 | Emergency (ER) | payer MEDICARE, MEDICAID, SELFPAY ==
[2021-10-11 10:33] VITALS: BP 147/61; PULSE 77; RESP 20; TEMP 37.1; O2SAT 97; BMI 21.3
--- NOTE | 2021-10-11 10:54 | USCV_ITS ---
Galina Saba Age: 86 Gender: F : 1935 Exam Date: 10/11/2021 11:11 Ordering Phys: Jalen Parks DO Technologist: Doe Donovan Exam Location: [facility] [place]_ Indication: lt leg pain PROCEDURES: The venous duplex Doppler examination of both lower extremities was performed in the standard fashion. The following venous structures were evaluated: common femoral vein, profunda vein, proximal portion of the greater saphenous vein, superficial femoral vein, and the popliteal vein. In addition, the posterior tibial and peroneal trunk were evaluated. FINDINGS: Normal 2-D Doppler and augmentation and compressibility throughout the lower extremity venous structures. Additional imaging through the proximal calf veins also reveals no thrombus. Limited evaluation of the greater saphenous vein is patent with no thrombus.. CONCLUSIONS No evidence of right lower extremity DVT. No evidence of left lower extremity DVT. Emanuel Medeiros MD (Electronically Signed) Final Date: 11 October 2021 17:51 S
--- NOTE | 2021-10-11 10:55 | XRR_ITS ---
PROCEDURE INFORMATION: Exam: XR Chest Exam date and time: 10/11/2021 11:06 AM Age: 86 years old Clinical indication: Cough and dyspnea; Additional info: Dyspnea/cough TECHNIQUE: Imaging protocol: Radiologic exam of the chest. Views: 1 view. COMPARISON: CR XR chest 1V portable [id number] 07/30/2021 1:45 PM FINDINGS: Tubes, catheters and devices: Cardiac device noted overlying the left chest. Lungs: The lung parenchyma is clear. Azygous fissure noted. Pleural spaces: No pneumothorax. No pleural effusion. Heart/Mediastinum: The cardiomediastinal silhouette is within normal limits. Vasculature: Vascular stent in the left axillary region with surgical clips noted. Bones/joints: Postsurgical changes in the proximal right humerus. XR/XR chest 1V portable [id number] IMPRESSION: No acute cardiopulmonary abnormality identified.
--- NOTE | 2021-10-11 10:59 | ECG_ITS ---
[facility] Test Date: 2021-10-11 Pat Name: Galina Saba Department: Room: Gender: Female Receiver: : 1935 Requested By: Jalen Soliman Order Number: [id number] Milad MD: Alessandro Carney M.D. Measurements Intervals [place] Rate: 68 P: 52 [place]: 208 QRS: -66 QRSD: 168 T: 85 QT: 480 QTc: 513 Interpretive Statements ELECTRONIC VENTRICULAR [id number], V-paced rhythm ABNORMAL RHYTHM ECG WARNING: DATA QUALITY MAY AFFECT INTERPRETATION Compared to ECG 07/30/2021 21:44:45 Atrial-paced complex(es) or rhythm no longer present Electronically Signed On 10-11-2021 22:43:33 CDT by Alessandro Carney M.D. [id number]
[2021-10-11 11:05] LABS: Basophils % 0.5 %; Eosinophils % 0.6 %; Hematocrit 34.9 % (37.0-47.0); Lymphocytes # 0.9 10^3/uL (0.8-4.8); Lymphocytes % 13.6 %; Mean Corpuscular HGB Conc 31.5 g/dL (30.0-36.0); Mean Corpuscular Hemoglobin 31.3 pg (28.0-34.0); Mean Corpuscular Volume 99.4 fl (81-99); Mean Platelet Volume 10.3 fL (7.4-10.4); Monocytes # 0.7 10^3/uL (0.2-0.9); Monocytes % 10.6 %; Neutrophils # 4.77 10^3/uL (1.8-7.7); Neutrophils % 74.5 %; Nucleated Red Blood Cells % 0 %; Platelet Count 241 10^3/cmm (130-400); Red Blood Count 3.51 10^6/uL (4.1-5.3); Red Cell Distribution Width 14.4 % (12.1-15.1); White Blood Count 6.4 10^3/uL (4.0-10.0)
[2021-10-11 11:15] VITALS: BP 168/78; PULSE 70; RESP 16; O2SAT 95
--- NOTE | 2021-10-11 11:39 | W.ED.SOB ---
HPI - SOB/Dyspnea General: Chief Complaint: Shortness of Breath/Dyspnea Stated Complaint: sob, left leg swelling Time Seen by Provider: 10/11/21 10:46 Source: patient Mode of arrival: ambulatory History of Present Illness: HPI Narrative: 86-year-old female with a history of end-stage renal disease and congestive heart failure. She had dialysis yesterday had her full normal run. She is complaining of discomfort in her lower extremities bilaterally and increased shortness of breath. She denies any chest pain. No significant orthopnea in fact she assess to lower the head of the bed while I was examining her. No abdominal pain no chest pain. No fever sweats or chills. She has not had a productive cough. MD elicited complaint: shortness of breath and cough Pertinent past history: congestive heart failure and other (End-stage renal disease) Onset (ago): hour(s) Timing: constant Severity: mild Exacerbating factors: exertion Relieving factors: nothing Known history of: congestive heart failure Associated symptoms: Deny abdominal pain, chest congestion, chest pain, cough, diaphoresis, dizziness, extremity pain, fever(s), hemoptysis, lightheadedness, myalgias, nausea, orthopnea, palpitations, paresthesias, polydipsia, polyuria, rash, sense of impending doom, syncope or vomiting Treatment prior to arrival: none Review of Systems Const: Denies: fever(s) or diaphoresis Card: Denies: chest pain, palpitations, lightheadedness, syncope or orthopnea Resp: Denies: hemoptysis or chest congestion GI: Denies: abdominal pain, nausea or vomiting Musc: Denies: extremity pain Neuro: Denies: dizziness Endo: Denies: polyuria or polydipsia PFSH ED PFSH: Medical History (Updated 10/11/21 @ 14:27 by Jalen Parks DO) Anemia Carotid stenosis COPD (chronic obstructive pulmonary disease) Coronary artery disease 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 Diabetes Diastolic congestive heart failure End stage renal disease Essential hypertension GERD (gastroesophageal reflux disease) Intermittent atrial fibrillation Interstitial lung disease Third degree heart block Status post pacemaker placement Surgical History Hemodialysis access site with arteriovenous graft History of laparoscopic cholecystectomy History of tubal ligation S/P hemodialysis catheter insertion Status post colonoscopy (12/30/19) Family History Mother Cancer Lung cancer Father Diabetes Other CAD (coronary artery disease) Denies family history of Anesthesia complication Bleeding disorder Social History Smoking and tobacco status: former smoker Quit status (tobacco): has quit using tobacco Year quit tobacco: 1983 Former quit date comment: 2ppd x 19 years Alcohol intake: never Course Vital Signs: Vital signs: Vital Signs Temperature 98.7 F 10/11/21 10:33 Pulse Rate 60 10/11/21 14:34 Respiratory Rate 16 10/11/21 14:34 Blood Pressure 144/84 10/11/21 14:34 Pulse Oximetry 95 10/11/21 14:34 Oxygen Delivery Me thod 10/11/21 14:34 MDM - SOB/Dyspnea Medical Decision Making Exam and labs unremarkable. Her oxygen sats have been normal. No respiratory distress no orthopnea. Patient alert and oriented and said earlier today she had brief episodes where she is very confused CT of the head unremarkable go ahead and discharge her home follow-up primary care. Return if is any further problems. Medical Records I reviewed the patient's medical records. Lab Data I reviewed the patient's lab results. : 10/11/21 10:59 10/11/21 10:59 Labs/Radiology: Radiology Impressions Chest X-Ray 10/11/21 10:55 IMPRESSION: No acute cardiopulmonary abnormality identified. Head CT 10/11/21 12:26 IMPRESSION: 1. No CT evidence of acute intracranial pathology. 2. Additional findings, as above. Laboratory Results WBC 6.4 10^3/uL (4.0-10.0) 10/11/21 10:59 RBC 3.51 10^6/uL (4.1-5.3) L 10/11/21 10:59 Hgb 11.0 g/dL (11.5-15.3) L 10/11/21 10:59 Hct 34.9 % (37.0-47.0) L 10/11/21 10:59 MCV 99.4 fl (81-99) H 10/11/21 10:59 MCH 31.3 pg (28.0-34.0) 10/11/21 10:59 MCHC 31.5 g/dL (30.0-36.0) 10/11/21 10:59 RDW 14.4 % (12.1-15.1) 10/11/21 10:59 Plt Count 241 10^3/cmm (130-400) 10/11/21 10:59 MPV 10.3 fL (7.4-10.4) 10/11/21 10:59 Neut % (Auto) 74.5 % 10/11/21 10:59 Lymph % (Auto) 13.6 % 10/11/21 10:59 [place] % (Auto) 10.6 % 10/11/21 10:59 Eos % (Auto) 0.6 % 10/11/21 10:59 Baso % (Auto) 0.5 % 10/11/21 10:59 Neut # (Auto) 4.77 10^3/uL (1.8-7.7) 10/11/21 10:59 Lymph # (Auto) 0.9 10^3/uL (0.8-4.8) 10/11/21 10:59 [place] # (Auto) 0.7 10^3/uL (0.2-0.9) 10/11/21 10:59 Eos # (Auto) 0.0 10^3/uL (0.0-0.8) 10/11/21 10:59 Baso # (Auto) 0.0 10^3/uL (0.0-0.1) 10/11/21 10:59 Nucleated RBC % (auto) 0 % 10/11/21 10:59 Nucleated RBCs # 0.0 /100WBC 10/11/21 10:59 Specimen Type Arterial 10/11/21 13:14 Sample Site Radial, right 10/11/21 13:14 ABG pH 7.61 (7.35-7.45) H* 10/11/21 13:14 ABG pCO2 34.0 mmHg (35-45) L 10/11/21 13:14 ABG pO2 45.6 mmHg (80.0-100.0) L 10/11/21 13:14 ABG HCO3 34.2 mmol/L (22-26) H 10/11/21 13:14 ABG O2 Saturation 87.1 10/11/21 13:14 ABG Base Excess 12.1 mmol/L (-2.0-2.0) H 10/11/21 13:14 Barrett Test Pos 10/11/21 13:14 A-a O2 Gradient 8.1 mmHg (5-10) 10/11/21 13:14 Hematocrit 32.0 % (37-47) L 10/11/21 13:14 Hgb O2 Saturation 84.9 % (95-100) L 10/11/21 13:14 Carboxyhemoglobin 1.8 %THgb (0.4-20.1) 10/11/21 13:14 Methemoglobin 0.7 % (0.4-1.5) 10/11/21 13:14 Total Hemoglobin 10.4 g/dL (12-16) L 10/11/21 13:14 Sodium 143.0 mmol/L (131-143) 10/11/21 13:14 Potassium 3.6 mmol/L (3.5-5.0) 10/11/21 13:14 Glucose 92.0 mg/dL (70-115) 10/11/21 13:14 Ionized Calcium 1.1 mmol/L (1.1-1.4) 10/11/21 13:14 O2 Delivery Device Room air 10/11/21 13:14 Power Brake Operator ID Cak 10/11/21 13:14 Sodium 142 mmol/L (136-145) 10/11/21 10:59 Potassium 3.6 mmol/L (3.5-5.1) 10/11/21 10:59 Chloride 97 mmol/L (98-107) L 10/11/21 10:59 Carbon Dioxide 35 mmol/L (22-29) H 10/11/21 10:59 Anion Gap 13.6 (5-19) 10/11/21 10:59 BUN 14 mg/dL (8-23) 10/11/21 10:59 Creatinine 3.4 mg/dL (0.5-0.9) H 10/11/21 10:59 GFR Calculation Not Reportable 10/11/21 10:59 Glucose 129 mg/dL (65-115) H 10/11/21 10:59 Calculated Osmolality 296 mOsm/kg (285-295) H 10/11/21 10:59 Calcium 9.4 mg/dL (8.5-10.5) 10/11/21 10:59 Total Bilirubin 0.3 mg/dL (0.15-1.2) 10/11/21 10:59 AST 19 U/L (0-32) 10/11/21 10:59 ALT 11 U/L (0-33) 10/11/21 10:59 Alkaline Phosphatase 91 U/L (35-105) 10/11/21 10:59 NT-Pro-B Natriuret Pep 38999 pg/mL (0-450) H 10/11/21 10:59 Total Protein 6.3 g/dL (6.6-8.7) L 10/11/21 10:59 Albumin 3.8 g/dL (3.5-5.2) 10/11/21 10:59 Globulin 2.5 g/dL (1.3-4.6) 10/11/21 10:59 Discharge Plan Discharge Patient Disposition: Home Clinical Impression: Dyspnea, End stage renal disease Condition: Stable Prescriptions: No Action alprazolam 0.25 mg tablet 0.25 mg PO BEDTIME Tradjenta 5 mg tablet 5 mg PO DAILY albuterol sulfate 90 mcg/actuation HFA aerosol inhaler 2 puff inhalation Q6H PRN (Reason: Shortness Of Breath) metoprolol succinate 25 mg Tablet Extended Release 24 Hr 12.5 mg PO DAILY furosemide 40 mg tablet 40 mg PO DAILY acetaminophen [Tylenol Extra Strength] 500 mg Tablet 500 - 1,000 mg PO PRN calcium carbonate [Tums] 200 mg calcium (500 mg) Tablet,Chewable 200 mg PO BID PRN (Reason: Heartburn) RenaPlex-D 800 mcg-12.5 mg -2,000 unit tablet 1 tab PO QPM cholecalciferol (vitamin D3) [Vitamin D3] 50 mcg (2,000 unit) Tablet 50 mcg PO DAILY atorvastatin 40 mg Tablet 40 mg PO BEDTIME clopidogrel [Plavix] 75 mg Tablet 75 mg PO DAILY nitroglycerin [Nitrostat] 0.4 mg Tablet, Sublingual 0.4 mg SUBLINGUAL Q5M PRN (Reason: Chest Pain) C,E,zinc,copper [id number] 250-5-1 mg Capsule 1 cap PO DAILY fluticasone propionate 50 mcg/actuation [place],Suspension 1 spray INTRANASAL DAILY Rx Instructions: administer into each nostril losartan 50 mg tablet 50 mg PO DAILY Vitamin B-12 1,000 mcg Tablet 1,000 mcg PO DAILY Rx Instructions: ON ,THUR,SAT, AND SUN amlodipine 10 mg tablet 10 mg PO BEDTIME omeprazole 40 mg capsule,delayed release(DR/EC) 40 mg PO BID Discharge Orders: Discharge ED (Routine); Ordered 10/11/21 Ordered By: Jalen Parks Referrals: Magdiel Amador MD [Primary Care Provider] - Patient Instructions: Opioid Safety Activity Restrictions/Additional Instructions: Follow-up with your primary care doctor within the next 2 to 3 days. Coding Level of Care Code ED Tester [employer] for Elizabeth Lewis
[2021-10-11 11:42] LABS: Alanine Aminotransferase 11 U/L (0-33); Albumin Level 3.8 g/dL (3.5-5.2); Alkaline Phosphatase 91 U/L (35-105); Anion Gap 13.6 (5-19); Aspartate Amino Transferase 19 U/L (0-32); Blood Urea Nitrogen 14 mg/dL (8-23); Calcium 9.4 mg/dL (8.5-10.5); Carbon Dioxide 35 mmol/L (22-29); Chloride 97 mmol/L (98-107); Globulin 2.5 g/dL (1.3-4.6); Glucose 129 mg/dL (65-115); NT Pro B Type Natriuretic Pept 25375 pg/mL (0-450); Osmolality Calculated 296 mOsm/kg (285-295); Potassium 3.6 mmol/L (3.5-5.1); Sodium 142 mmol/L (136-145); Total Bilirubin 0.3 mg/dL (0.15-1.2); Total Protein 6.3 g/dL (6.6-8.7)
--- NOTE | 2021-10-11 11:44 | PC.NURSE ---
Report from FRED De La Torre
[2021-10-11 11:48] VITALS: BP 156/50; PULSE 68; RESP 12; O2SAT 100
--- NOTE | 2021-10-11 12:26 | CTR_ITS ---
PROCEDURE INFORMATION: Exam: CT Head Without Contrast Exam date and time: 10/11/2021 12:37 PM Age: 86 years old Clinical indication: Altered mental status/memory loss; Additional info: AMS TECHNIQUE: Imaging protocol: Computed tomography of the head without contrast. Axial, coronal and sagittal reformatted images were created and reviewed. Radiation optimization: All CT scans at this facility use at least one of these dose optimization techniques: automated exposure control; mA and/or kV adjustment per patient size (includes targeted exams where dose is matched to clinical indication); or iterative reconstruction. COMPARISON: CT head wo con* [id number] 11/21/2020 11:36 AM RADIATION DOSE METRICS: Total DLP (mGy-cm): 1070.88 FINDINGS: Brain: Patchy areas of hypoattenuation in the periventricular and subcortical white matter, consistent with chronic small vessel ischemic disease. Focal, well-circumscribed hypodensities in the basal ganglia, consistent with chronic lacunar infarcts. No CT evidence of acute intracranial hemorrhage or acute territorial infarction. No significant mass effect or midline shift. Basal cisterns patent. Cerebral ventricles: Prominence of the cortical sulci, cisterns and ventricular system, consistent with cerebral and cerebellar volume loss. Paranasal sinuses: Minimal ethmoid mucosal thickening. No air-fluid levels. Mastoid air cells: Grossly unremarkable. Bones/joints: No acute osseous abnormality. Soft tissues: Grossly unremarkable. Vasculature: Calcific atherosclerotic disease in the cavernous internal carotid arteries, as well as the vertebro-basilar system. CT/CT head wo con* [id number]: 1. No CT evidence of acute intracranial pathology. 2. Additional findings, as above.
[2021-10-11 13:25] LABS: Alveolar-Arterial Oxygen Gradi 8.1 mmHg (5-10); Base Excess ABG 12.1 mmol/L (-2.0-2.0); Blood Gas Allen Test Pos; Blood Gas Operator Identificat CAK; Blood Gas Sample Site Radial, right; Blood Gas Sample Type Arterial; Carboxyhemoglobin 1.8 %THgb (0.4-20.1); HCO3 ABG 34.2 mmol/L (22-26); HGB O2 Sat 84.9 % (95-100); Ionized Calcium Level - ABG 1.1 mmol/L (1.1-1.4); Methemoglobin 0.7 % (0.4-1.5); Oxygen Device ROOM AIR; Oxygen Saturation ABG 87.1; PO2 ABG 45.6 mmHg (80.0-100.0); Potassium Level - ABG 3.6 mmol/L (3.5-5.0); Total Hemoglobin 10.4 g/dL (12-16)
[2021-10-11 13:26] LABS: ABG PH Result 7.61 (7.35-7.45)
[2021-10-11 13:37] VITALS: BP 148/48; PULSE 81; RESP 16; O2SAT 92
[2021-10-11 14:34] VITALS: BP 144/84; PULSE 60; RESP 16; O2SAT 95
== END 2021-10-11 14:47 | disposition home or self-care (01) ==
PROVIDERS: Emergency Provider Family Medicine; PCP Family Medicine
DX: R06.00 Dyspnea, unspecified (principal); E11.22 Type 2 diabetes mellitus with diabetic chronic kidney disease; I13.2 Hypertensive heart and chronic kidney disease with heart failure and with stage 5 chronic kidney disease, or end stage renal disease; I50.30 Unspecified diastolic (congestive) heart failure; N18.6 End stage renal disease; Z99.2 Dependence on renal dialysis; J44.9 Chronic obstructive pulmonary disease, unspecified; I25.10 Atherosclerotic heart disease of native coronary artery without angina pectoris; Z87.891 Personal history of nicotine dependence; Z79.02 Long term (current) use of antithrombotics/antiplatelets
CPT/HCPCS: 36600; 70450; 71045; 80051; 80053; 82330; 82805; 83880; 85025; 93005; 93970; 99285

== ENCOUNTER 2021-10-18 07:31 | Day surgery (SDC) | payer MEDICARE, MEDICAID, SELFPAY ==
[2021-10-16 15:18] VITALS: BMI 21.3
[2021-10-18 07:54] VITALS: BP 159/65; PULSE 69; RESP 18; TEMP 36.1; O2SAT 97
[2021-10-18] MEDS: sodium chloride 0.9% 1,000 ML 30 ML IV (08:07)
--- NOTE | 2021-10-18 08:24 | W.PM.OPSFHP ---
Same Day Surgery H&P Indication for Procedure/HPI DATE OF PROCEDURE: October 18, 2021 CHIEF COMPLAINT/INDICATIONFOR SURGICAL PROCEDURE: Difficulty in swallowing PREOP DIAGNOSIS: Dysphagia PLANNED PROCEDURE: Operation Date: 10/18/21 09:00 Proposed Procedures p EGD 89320,R13.10(Not Applicable) - eDl Velazquez MD 08/16/2021 This is a pleasant 86 years old female patient reports history of dysphagia particularly to solid food.? She does have dentures but they are fitting well according to her description.? She denies odynophagia and there is a question carlos about history of mini strokes in the past.? Patient undergone a modified barium swallow on 07/31/2021 that did show 1.? No aspiration or laryngeal penetration. 2.? Mild esophageal dysmotility and mild pharyngeal coating with barium. Per speech pathology report patient demonstrates functional oral and pharyngeal phases of swallowing.? Patient would benefit from further assessment of her esophageal function. Feeding recommendations regarding to positioning at 90 degrees, amount of supervision as needed, limit size of spoonfuls to half teaspoon. Medication administration forms with liquid Feeding and other recommendations to continue slick diet. Patient is on hemodialysis via left upper extremity AV fistula with good thrill and bruit 10/18/2021 Patient comes today for diagnostic EGD ROS All systems have been reviewed negative except as for the above or per problem list. Medications/Allergies* Home Medications Medication Instructions Recorded Confirmed Type alprazolam 0.25 mg tablet 0.25 mg PO BEDTIME 04/15/19 10/18/21 History linagliptin 5 mg tablet (Tradjenta) 5 mg PO DAILY 04/15/19 10/18/21 History metoprolol succinate 25 mg 12.5 mg PO DAILY 05/31/19 10/18/21 History tablet,extended release 24 hr cholecalciferol (vitamin D3) 50 50 mcg PO DAILY 06/16/19 10/18/21 History mcg (2,000 unit) tablet (Vitamin D3) vit B,C-folic ac 800 mcg-zinc 12.5 1 tab PO QPM 06/16/19 10/18/21 History mg-selen-D3 2,000 unit-vit E tablet (RenaPlex-D) furosemide 40 mg tablet 40 mg PO DAILY 10/07/19 10/18/21 History atorvastatin 40 mg tablet 40 mg PO BEDTIME 11/17/19 10/18/21 History clopidogrel 75 mg tablet (Plavix) 75 mg PO DAILY 11/17/19 10/18/21 History nitroglycerin 0.4 mg sublingual 0.4 mg sublingual Q5M PRN Chest 11/17/19 10/18/21 History tablet (Nitrostat) Pain acetaminophen 500 mg tablet 500 - 1,000 mg PO PRN PRN pain 07/31/20 10/18/21 History (Tylenol Extra Strength) calcium carbonate 200 mg calcium 200 mg PO BID PRN Heartburn 07/31/20 10/18/21 History (500 mg) chewable tablet (Tums) fluticasone propionate 50 1 spray intranasal DAILY 07/30/21 10/18/21 History mcg/actuation nasal spray,suspension vit C,E,zinc,copper-rjjyk1p 250 1 cap PO DAILY 07/30/21 10/18/21 History mg-lutein 5 mg-zeaxanthin 1 mg capsule losartan 50 mg tablet 50 mg PO DAILY 08/16/21 10/18/21 History amlodipine 10 mg tablet 10 mg PO BEDTIME 10/11/21 10/18/21 History cyanocobalamin (vitamin B-12) 1,000 mcg PO DAILY 10/11/21 10/18/21 History 1,000 mcg tablet (Vitamin B-12) omeprazole 40 mg capsule,delayed 40 mg PO DAILY 10/11/21 10/18/21 History release aspirin 81 mg tablet 81 mg PO DAILY 10/18/21 10/18/21 History Allergies/Adverse Reactions Allergy/AdvReac Type Severity Reaction Status Date / Time lisinopril Allergy Unknown Unknown Verified 10/18/21 08:25 morphine AdvReac Intermediate ADR-Nausea Verified 10/18/21 08:25 Current Medications: Generic Name Dose Route Start Last Admin Trade Name Freq PRN Reason Stop Dose Admin Sodium Chloride 1,000 mls @ 30 mls/hr 10/18/21 07:45 10/18/21 08:07 Sodium Chloride 0.9% IV 10/19/21 07:44 30 mls/hr .Q24H ROSIBEL Administration Pertinent History/Comorbid Conditions* Medical History (Updated 10/11/21 @ 14:27 by Jalen Parks DO) Anemia Carotid stenosis COPD (chronic obstructive pulmonary disease) Coronary artery disease 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 Diabetes Diastolic congestive heart failure End stage renal disease Essential hypertension GERD (gastroesophageal reflux disease) Intermittent atrial fibrillation Interstitial lung disease Third degree heart block Status post pacemaker placement Surgical History (Updated 12/30/19 @ 10:34 by Harish Bishop MD) Hemodialysis access site with arteriovenous graft History of laparoscopic cholecystectomy History of tubal ligation S/P hemodialysis catheter insertion Status post colonoscopy (12/30/19) Family History (Updated 09/20/19 @ 11:14 by Jacqui Russell DO) Diabetes Father CAD (coronary artery disease) Cancer Mother Lung cancer Denies family history of Anesthesia complication Bleeding disorder Social History Smoking and tobacco status: former smoker Quit status (tobacco): has quit using tobacco Year quit tobacco: 1983 Former quit date comment: 2ppd x 19 years Alcohol intake: never Pertinent Exam Findings alert, oriented x 3, regular rate & rhythm and procedure specific exam findings ( abdominal exam nontender nondistended soft) Recommendations Surgery/Procedure today (EGD with possible biopsy) Coding Level of Care Code Acute 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
--- NOTE | 2021-10-18 08:27 | ANES.PREANE2 ---
Pre-Anesthetic Assessment Height/Weight: Height 1.55 m Weight 51.256 kg Temp Pulse Resp BP Pulse Ox O2 Del Method O2 Flow Rate 97.0 F L 69 18 159/65 97 2 10/18/21 07:54 10/18/21 07:54 10/18/21 07:54 10/18/21 07:54 10/18/21 07:54 10/18/21 07:54 10/18/21 07:54 Preop Diagnosis: Dysphagia Operation Date: 10/18/21 09:00 Proposed Procedures p EGD 50767,R13.10(Not Applicable) - Del Velazquez MD Familial anesthetic complications: none Was Beta Garland taken within 24 hours: Yes Was Clonidine taken within 24 hours: N/A Last intake: Intake Last Liquid Date 10/17/21 Last Liquid Time 18:00 Last Solid Date 10/17/21 Last Solid Time 18:00 Social No alcohol and No tobacco (h/o smoking) Exam alert, oriented x 3 and regular rate & rhythm Airway Submandibular: within normal limits Cervical ROM: within normal limits Mallampati: Class I Dentition: false Pulmonary Chronic Obstructive Pulmonary Disease Home O2, interstitial lung dz CV/HEM Anemia, Coronary Artery Disease, Hypertension, Myocardial Infarction and Peripheral Vascular Disease Chronic Renal Failure Dialysis, LUE fistula/graft GI Gastroesophageal Reflux Disease Anesthetic Plan ASA status: 3 Anesthesia: MAC Medications/Allergies Home Medications Medication Instructions Recorded Confirmed Last Taken Type alprazolam 0.25 mg tablet 0.25 mg PO BEDTIME 04/15/19 10/18/21 10/17/21 History linagliptin 5 mg tablet (Tradjenta) 5 mg PO DAILY 04/15/19 10/18/21 10/17/21 History metoprolol succinate 25 mg 12.5 mg PO DAILY 05/31/19 10/18/21 10/17/21 History tablet,extended release 24 hr cholecalciferol (vitamin D3) 50 50 mcg PO DAILY 06/16/19 10/18/21 10/17/21 History mcg (2,000 unit) tablet (Vitamin D3) vit B,C-folic ac 800 mcg-zinc 12.5 1 tab PO QPM 06/16/19 10/18/21 10/17/21 History mg-selen-D3 2,000 unit-vit E tablet (RenaPlex-D) furosemide 40 mg tablet 40 mg PO DAILY 10/07/19 10/18/21 10/17/21 History atorvastatin 40 mg tablet 40 mg PO BEDTIME 11/17/19 10/18/21 10/17/21 History clopidogrel 75 mg tablet (Plavix) 75 mg PO DAILY 11/17/19 10/18/21 10/17/21 History nitroglycerin 0.4 mg sublingual 0.4 mg sublingual Q5M PRN Chest 11/17/19 10/18/21 Unknown History tablet (Nitrostat) Pain acetaminophen 500 mg tablet 500 - 1,000 mg PO PRN PRN pain 07/31/20 10/18/21 Unknown History (Tylenol Extra Strength) calcium carbonate 200 mg calcium 200 mg PO BID PRN Heartburn 07/31/20 10/18/21 Unknown History (500 mg) chewable tablet (Tums) fluticasone propionate 50 1 spray intranasal DAILY 07/30/21 10/18/21 10/11/21 History mcg/actuation nasal spray,suspension vit C,E,zinc,copper-xvswy2w 250 1 cap PO DAILY 07/30/21 10/18/21 10/17/21 History mg-lutein 5 mg-zeaxanthin 1 mg capsule losartan 50 mg tablet 50 mg PO DAILY 08/16/21 10/18/21 10/17/21 History amlodipine 10 mg tablet 10 mg PO BEDTIME 10/11/21 10/18/21 10/17/21 History cyanocobalamin (vitamin B-12) 1,000 mcg PO DAILY 10/11/21 10/18/21 10/17/21 History 1,000 mcg tablet (Vitamin B-12) omeprazole 40 mg capsule,delayed 40 mg PO DAILY 10/11/21 10/18/21 10/17/21 History release aspirin 81 mg tablet 81 mg PO DAILY 10/18/21 10/18/21 10/17/21 History Allergies Allergy/AdvReac Type Severity Reaction Status Date / Time lisinopril Allergy Unknown Unknown Verified 10/18/21 08:25 morphine AdvReac Intermediate ADR-Nausea Verified 10/18/21 08:25 Current Medications Generic Name Dose Route Start Last Admin Trade Name Freq PRN Reason Stop Dose Admin Sodium Chloride 1,000 mls @ 30 mls/hr 10/18/21 07:45 10/18/21 08:07 Sodium Chloride 0.9% IV 10/19/21 07:44 30 mls/hr .Q24H ROSIBEL Administration PFSH Anesthesia Medical History (Updated 10/11/21 @ 14:27 by Jalen Parks DO) Anemia Carotid stenosis COPD (chronic obstructive pulmonary disease) Coronary artery disease 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 Diabetes Diastolic congestive heart failure End stage renal disease Essential hypertension GERD (gastroesophageal reflux disease) Intermittent atrial fibrillation Interstitial lung disease Third degree heart block Status post pacemaker placement Surgical History Hemodialysis access site with arteriovenous graft History of laparoscopic cholecystectomy History of tubal ligation S/P hemodialysis catheter insertion Status post colonoscopy (12/30/19) Family History Mother Cancer Lung cancer Father Diabetes Other CAD (coronary artery disease) Denies family history of Anesthesia complication Bleeding disorder Social History Smoking and tobacco status: former smoker Quit status (tobacco): has quit using tobacco Year quit tobacco: 1983 Former quit date comment: 2ppd x 19 years Alcohol intake: never Data Anesthesia Cardiac Studies: Echocardiogram 07/31/21 Echocardiogram Ultrasound 04/20/19 Holter Monitor 10/14/19
[2021-10-18 09:10] VITALS: BP 131/51; PULSE 79; RESP 12; TEMP 36.1; O2SAT 95
[2021-10-18 09:24] VITALS: BP 141/43; PULSE 62; RESP 18; O2SAT 92
--- NOTE | 2021-10-18 13:33 | ANE.PACU2 ---
Inpatient post-anesthesia follow up: Airway intact: Yes Vital signs: Temperature 97.0 F Pulse Rate 62 Respiratory Rate 18 Blood Pressure 141/43 Pulse Oximetry 92 Oxygen Delivery Me thod Nasal Cannula Oxygen Flow Rate 2 Fraction of Inspir ed Oxygen Hydration adequate: Yes Nausea and vomiting: No Pain level: 1 Mental status: Baseline
== END 2021-10-18 09:33 | disposition home or self-care (01) ==
PROVIDERS: PCP Family Medicine; Visit Provider Surgery
PROC: 0DJ08ZZ Inspection of Upper Intestinal Tract, Via Natural or Artificial Opening Endoscopic (ICD-10-PCS; CPT 43235; principal; 2021-10-18 09:00)
DX: K29.50 Unspecified chronic gastritis without bleeding (principal); R13.10 Dysphagia, unspecified; I13.2 Hypertensive heart and chronic kidney disease with heart failure and with stage 5 chronic kidney disease, or end stage renal disease; E11.22 Type 2 diabetes mellitus with diabetic chronic kidney disease; I50.9 Heart failure, unspecified; N18.6 End stage renal disease; J44.9 Chronic obstructive pulmonary disease, unspecified; I25.10 Atherosclerotic heart disease of native coronary artery without angina pectoris; I25.2 Old myocardial infarction; I48.91 Unspecified atrial fibrillation; Z79.82 Long term (current) use of aspirin; Z87.891 Personal history of nicotine dependence; Z88.5 Allergy status to narcotic agent; Z95.0 Presence of cardiac pacemaker; Z99.2 Dependence on renal dialysis; Z95.828 Presence of other vascular implants and grafts; Z99.81 Dependence on supplemental oxygen
CPT/HCPCS: 43239; 88305; J2370; J2704; J7030

== ENCOUNTER → 2021-11-01 16:18 | Outpatient (BNVA) | payer MEDICARE, MEDICAID, SELFPAY | PROVIDERS: PCP Family Medicine; Visit Provider Surgery | DX: Z09 Encounter for follow-up examination after completed treatment for conditions other than malignant neoplasm (principal); R13.10 Dysphagia, unspecified; K29.70 Gastritis, unspecified, without bleeding | CPT/HCPCS: 99212 ==

== ENCOUNTER → 2022-04-05 08:05 | Outpatient (BNVA) | payer MEDICARE, MEDICAID, SELFPAY | PROVIDERS: PCP Family Medicine; Visit Provider Internal Medicine Cardiovascular Disease | DX: Z45.010 Encounter for checking and testing of cardiac pacemaker pulse generator [battery] (principal) | CPT/HCPCS: 93296 ==

== ENCOUNTER 2022-05-13 10:33 | Observation (INO) | payer MEDICARE, MEDICAID, SELFPAY ==
[2022-05-13 10:45] VITALS: BP 163/54; PULSE 75; RESP 14; TEMP 36.8; O2SAT 100; BMI 20.2
--- NOTE | 2022-05-13 11:06 | USCV_ITS ---
Galina Saba Age: 87 Gender: F : 1935 Exam Date: 05/13/2022 11:40 Ordering Phys: Alexia Altamirano Technologist: Doe Donovan Exam Location: [facility] [place] Indication: lt arm swelling pt has dialisis graft PROCEDURES: Venous duplex imaging was performed in only the left upper extremity. The following venous structures were evaluated: internal jugular vein, subclavian vein, axillary vein, and brachial veins. In addition, the basilic vein, cephalic vein, radial vein, and ulnar vein. Serial compression, augmentation maneuvers, and spectral Doppler flow evaluation were performed. FINDINGS: The veins of the left upper extremity are readily compressible with normal venous flow dynamics including spontaneous flow, respiratory phasic variation and augmentation. No evidence of deep vein thrombosis or superficial thrombophlebitis in the left upper extremity. lt arm graft is patient and in good condition CONCLUSIONS No evidence of thrombus of the left upper extremity veins. Dialysis graft is patent. Emanuel Medeiros MD (Electronically Signed) Final Date: 13 May 2022 13:31 S
--- NOTE | 2022-05-13 11:06 | XR_ITS ---
WS: [id number] EXAMINATION: XR chest 1V portable [id number] REASON FOR EXAM: weakness, cough COMPARISON: 04/23/2022 ORDER DATE: 05/13/2022 11:09 AM TECHNIQUE: A single, portable frontal chest x-ray was obtained. X-RAY FINDINGS: Findings: No nodules, masses or effusions are seen. The heart is normal. There are increased curly B lines in the bases with peribronchial cuffing and slightly increased prominence with perihilar pulmon tana vessels. No pneumonia or pneumothorax is seen. There is a permanent pacemaker with the generator overlying the upper left chest and wires in the in the right atrium and ventricle. The aortic arch and descending thoracic aorta show calcification and tortuosity. There is a vascular stent in the left axilla unchanged. Rotator cuff repair anchor seen in the right humerus XR/XR chest 1V portable [id number] Impression: Early interstitial edema Atherosclerosis and permanent pacemaker.
--- NOTE | 2022-05-13 11:07 | ECG_ITS ---
[facility] [place] Test Date: 2022-05-13 Pat Name: Galina Saba Department: Room: Gender: Female Caul Dresser: : 1935 Requested By: Alexia Altamirano Order Number: [id number] Milad MD: Pedro Silvestre M.D. Measurements Intervals [place] Rate: 79 P: 0 TX: 0 QRS: -73 QRSD: 162 T: 81 QT: 456 QTc: 523 Interpretive Statements ELECTRONIC VENTRICULAR PACEMAKER Compared to ECG 10/11/2021 10:59:44 No significant changes Electronically Signed On 05-13-2022 16:01:33 CDT by Pedro Silvestre M.D. [id number]
--- NOTE | 2022-05-13 11:07 | ED_ITS ---
Documented by User: ANGEL Maradiaga 05/13/22 15:03 HPI - Weakness General: Chief complaint: Weakness Stated complaint: WEAKNESS/ DIALYSIS PT Time Seen by Provider: 05/13/22 10:39 Source: patient and family Mode of arrival: EMS Limitations: no limitations History of Present Illness: Patient is a nice 87-year-old female with a history of ESRD (on dialysis MWF), CAD with stents, pacemaker (placed due to third degree heart block), COPD, CHF (was on oxygen only at night but PCP recently placed on continuous oxygen at 2L three weeks ago), anemia (has had colonoscopy/endoscopy previously for evaluation and no source identified- required transfusion once previously), HTN, and diabetes here with presumably her daughter for evaluation of generalized weakness. Daughter states over the past 2-3 weeks she has progressively gotten more and more weak. She states her mother is normally very active and independent but states now it is difficult to even get her out of bed secondary to fatigue. She complains of significant shortness of breath with minimal exertion. She does report being treated for pneumonia approximately 2 to 3 weeks ago. She states she is having a small amount of productive cough/sputum now. Patient states she is not having pain anywhere. She does report some non-bloody diarrhea. No abdominal pain. No urinary complaints-makes minimal urine with her ESRD. MD Complaint: generalized weakness Onset (ago): week(s) Duration: constant Location: generalized Migration: none Relieving factors: none Exacerbating factors: none Associated symptoms: Denies chest pain, chills, confusion, melena, dysuria, fever(s), headache(s), nausea, syncope or vomiting Review of Systems Const: Reports: fatigue; Denies: fever(s), chills, body aches or malaise Eyes: Reports: other (pt is legally blind); Denies: change in vision ENMT: Denies: throat pain, odynophagia, ear or mastoid pain, nasal discharge, nasal congestion, epistaxis, post nasal drip or sinus pain Card: Reports: dyspnea on exertion and orthopnea; Denies: chest pain, palpitations, irregular heart rhythm, edema, swelling of feet/ankles, lightheadedness, syncope, pre-syncope, leg pain with exertion or acrocyanosis Resp: Reports: dyspnea (chronic-on home oxygen), productive cough and chest congestion; Denies: wheezing or pain on inspiration GI: Reports: diarrhea; Denies: abdominal pain, nausea, vomiting, GI cramping, hematochezia or melena : Denies: flank pain, difficulty voiding, dysuria, urinary frequency, urinary urgency or urinary hesitancy Musc: Reports: extremity swelling (L UE) and other (has dialysis fistula to L UE); Denies: neck pain, back pain or joint pain Skin/Breast: Denies: rash Neuro: Reports: difficulty walking (secondary to weakness); Denies: headache(s), numbness in extremities, weakness in extremities, sensory changes, dizziness, confusion, behavioral changes, difficulty communicating thou ghts or seizure-like activity PFSH ED PFSH: Medical History Anemia Carotid stenosis COPD (chronic obstructive pulmonary disease) Coronary artery disease 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 Diabetes Diastolic congestive heart failure End stage renal disease Essential hypertension GERD (gastroesophageal reflux disease) Intermittent atrial fibrillation Interstitial lung disease Third degree heart block Status post pacemaker placement Surgical History Hemodialysis access site with arteriovenous graft History of laparoscopic cholecystectomy History of tubal ligation S/P hemodialysis catheter insertion Status post colonoscopy (12/30/19) Family History Mother Cancer Lung cancer Father Diabetes Other CAD (coronary artery disease) Denies family history of Anesthesia complication Bleeding disorder Social History Smoking and tobacco status: former smoker Quit status (tobacco): has quit using tobacco Year quit tobacco: 1983 Former quit date comment: 2ppd x 19 years Alcohol intake: never Physical Exam Const: COMMON NORMALS: no acute distress, average body habitus, patient oriented x3, no limitations, healthy appearing, alert and well nourished HENMT: COMMON NORMALS: normocephalic and atraumatic HEAD & SCALP: normal to inspection, normocephalic and atraumatic Eye: GENERAL EYE: appearance normal, both eyes and all related structures Neck/C-Spine: COMMON NORMALS: full ROM, no lymphadenopathy, no meningeal signs and no JVD GENERAL: Yes normal visual inspection Chest: COMMONS NORMALS: normal inspection of the chest and normal palpation of entire chest wall Resp: COMMON NORMALS: normal respiratory effort and clear to auscultation bilaterally AUSCULTATION: clear to auscultation bilaterally OTHER: respiratory distress with hypoxia (87% on her normal 2L) Cardio: COMMON NORMALS: no JVD, regular rate and regular rhythm RATE: regular rate RHYTHM: regular rhythm GI: COMMON NORMALS: Normal to inspection, nondistended, normoactive bowel sounds present, Soft to palpation, non-tender, No hepatosplenomegaly present and no masses INSPECTION: Yes normal to inspection PALPATION: Yes Soft to palpation and Yes No hepatosplenomegaly present RECTAL EXAM: visual inspection normal and heme negative stool : COMMON NORMALS: Yes no CVA tenderness BLADDER/KIDNEY EXAM: Yes no CVA tenderness Back/Pelvis: COMMON NORMALS: no CVA tenderness, thoracic and lumbar spine normal to inspection, no thoracic nor lumbar tenderness and thoraco-lumbar ROM normal Extremity: COMMON NORMALS: normal to inspection, capillary refill normal, no joint enlargement, no calf tenderness and no pedal edema NARRATIVE EXTREMITY EXAM: mild swelling noted to L UE; no redness/warmth; palpable thrill noted in dialysis fistula GENERAL: Yes normal exam except as noted Neuro: JOSEPH COMA SCALE: document GCS findings Joseph coma scale eye opening: Spontaneous Joseph coma scale verbal response: Orientated Joseph coma scale motor response: Obey commands [place] coma scale total score: 15 COMMON NORMALS: patient oriented x3, CN's II-XII intact bilaterally, moves all extremities, no focal motor deficits and no sensory deficits noted SENSORIUM/ORIENTATION: Yes alert MENINGEAL SIGNS: Yes no meningeal signs Skin: COMMON NORMALS: no rashes or lesions noted GENERAL SKIN EXAM: no rashes or lesions noted Course Consultations: Consultation #1: Dr. Ricks-accepts admission Vital Signs: Vital signs: Vital Signs Temperature 98.2 F 05/14/22 04:00 Pulse Rate 67 05/14/22 04:00 Respiratory Rate 16 05/14/22 04:00 Blood Pressure 137/61 05/14/22 04:00 Pulse Oximetry 98 05/14/22 04:00 Oxygen Delivery Me thod 05/13/22 18:39 Oxygen Flow Rate 3 05/13/22 17:08 MDM - Weakness Medical Decision Making Patient is a nice 87-year-old female with an extensive medical history here for complaints of weakness and fatigue over the past 2 to 3 weeks. Primary care has had increase her oxygen and she is now wearing 2L continuously. She arrived to the ED satting at 87% on her 2L dropped to 79% with ambulation. CXR showing early interstitial edema. Her BNP is over 32,000. Baseline troponin is elevated at 83 most likely secondary to her BNP. Her EKG shows no ischemic changes and no changes when compared to previous EKGs. Her last echo was in 07/2021 showing an EF of roughly 55%. UA is pending-took a while to be collected as patient makes very little urine. She is anemic with a hemoglobin of 8.3. This is fairly stable when compared to previous hemoglobins obtained from her dialysis clinic. I did perform hemoccult which was negative. Patient will require hospitalization for treatment of her hypoxia and worsening CHF. I spoke to Dr. Ricks who accepts admit. I will speak to nephrology on-call as patient will need to be dialyzed while in the hospital. Lab Data 05/13/22 11:30 05/13/22 11:30 Radiology Impressions Chest X-Ray 05/13/22 11:06 Impression: Early interstitial edema Atherosclerosis and permanent pacemaker. Chest CTA 05/13/22 13:44 IMPRESSION: 1. Negative for pulmonary embolus. 2. Multiple enlarged mediastinal lymph nodes measuring up to 18 mm, nonspecific. 3. Cardiomegaly. 4. Coronary artery atherosclerotic calcifications. 5. Pacemaker. 6. Cholecystectomy. 7. Moderate bilateral pleural effusions. 8. Patchy bilateral dependent airspace infiltrates with bilateral ground-glass airspace opacity suggestive of alveolar edema. Laboratory Results WBC 8.4 10^3/uL (4.0-10.0) 05/13/22 11:30 RBC 2.66 10^6/uL (4.1-5.3) L 05/13/22 11:30 Hgb 8.3 g/dL (11.5-15.3) L 05/13/22 11:30 Hct 27.5 % (37.0-47.0) L 05/13/22 11:30 MCV 103.4 fl (81-99) H 05/13/22 11:30 MCH 31.2 pg (28.0-34.0) 05/13/22 11:30 MCHC 30.2 g/dL (30.0-36.0) 05/13/22 11:30 RDW 16.1 % (12.1-15.1) H 05/13/22 11:30 Plt Count 326 10^3/cmm (130-400) 05/13/22 11:30 MPV 9.5 fL (7.4-10.4) 05/13/22 11:30 Neut % (Auto) 80.3 % 05/13/22 11:30 Lymph % (Auto) 9.5 % 05/13/22 11:30 [place] % (Auto) 6.2 % 05/13/22 11:30 Eos % (Auto) 3.0 % 05/13/22 11:30 Baso % (Auto) 0.6 % 05/13/22 11:30 Neut # (Auto) 6.78 10^3/uL (1.8-7.7) 05/13/22 11:30 Lymph # (Auto) 0.8 10^3/uL (0.8-4.8) 05/13/22 11:30 [place] # (Auto) 0.5 10^3/uL (0.2-0.9) 05/13/22 11:30 Eos # (Auto) 0.3 10^3/uL (0.0-0.8) 05/13/22 11:30 Baso # (Auto) 0.1 10^3/uL (0.0-0.1) 05/13/22 11:30 Nucleated RBC % (auto) 0 % 05/13/22 11:30 Nucleated RBCs # 0.0 /100WBC 05/13/22 11:30 Sodium 139 mmol/L (136-145) 05/13/22 11:30 Potassium 3.9 mmol/L (3.5-5.1) 05/13/22 11:30 Chloride 93 mmol/L (98-107) L 05/13/22 11:30 Carbon Dioxide 32 mmol/L (22-29) H 05/13/22 11:30 Anion Gap 17.9 (5-19) 05/13/22 11:30 BUN 39 mg/dL (8-23) H 05/13/22 11:30 Creatinine 4.7 mg/dL (0.5-0.9) H 05/13/22 11:30 GFR Calculation Not Reportable 05/13/22 11:30 Glucose 165 mg/dL (65-115) H 05/13/22 11:30 Calculated Osmolality 301 mOsm/kg (285-295) H 05/13/22 11:30 Calcium 8.8 mg/dL (8.5-10.5) 05/13/22 11:30 Iron 36 ug/dL (37-145) L 05/13/22 13:50 TIBC 195 mcg/dl 05/13/22 13:50 % Saturation 18.4 % (20-50) L 05/13/22 13:50 Unsat Iron Binding 159 ug/dL (112-347) 05/13/22 13:50 Total Bilirubin 0.3 mg/dL (0.15-1.2) 05/13/22 11:30 AST 20 U/L (0-32) 05/13/22 11:30 ALT 16 U/L (0-33) 05/13/22 11:30 Alkaline Phosphatase 71 U/L (35-105) 05/13/22 11:30 Troponin T Baseline 83 ng/L (0-10) H 05/13/22 11:30 Troponin T 120 Minute 76.54 ng/L (0-10) H 05/13/22 13:50 Delta Troponin T -6.46 ABS# (0-10) L 05/13/22 13:50 NT-Pro-B Natriuret Pep 25531 pg/mL (0-450) H 05/13/22 11:30 Total Protein 7.0 g/dL (6.6-8.7) 05/13/22 11:30 Albumin 3.7 g/dL (3.5-5.2) 05/13/22 11:30 Globulin 3.3 g/dL (1.3-4.6) 05/13/22 11:30 Vitamin B12 1110 pg/mL (232-1245) 05/13/22 13:50 Procalcitonin 0.19 ng/mL (0-0.5) 05/13/22 13:50 TSH 3.10 uIU/mL (0.27-4.20) 05/13/22 11:30 Urine Color Yellow (Yellow) 05/13/22 13:35 Urine Appearance Clear (CLEAR) 05/13/22 13:35 Urine pH 9 (5-7) H 05/13/22 13:35 Ur Specific [place] 1.010 (1.005-1.030) 05/13/22 13:35 Urine Protein 1+ (Negative) H 05/13/22 13:35 Urine Glucose (UA) Norm (Normal) 05/13/22 13:35 Urine Ketones Negative (Negative) 05/13/22 13:35 Urine Blood Neg (Negative) 05/13/22 13:35 Urine Nitrate Negative (Negative) 05/13/22 13:35 Urine Bilirubin Neg (Negative) 05/13/22 13:35 Prot Sulfosalicylic Acd Positive (Negative) 05/13/22 13:35 Urine Urobilinogen Neg mg/dL (Negative) 05/13/22 13:35 Ur Leukocyte Esterase Negative (Negative) 05/13/22 13:35 Urine RBC None /hpf (0-2) 05/13/22 13:35 Urine WBC 0-4 /hpf (0-5) H 05/13/22 13:35 Ur Squamous Epith Cells 0-4 /hpf (0-5) H 05/13/22 13:35 Amorphous Sediment Not Reportable 05/13/22 13:35 Urine Bacteria None /hpf (NONE) 05/13/22 13:35 Nasal Influ A H1 2009 PCR Not detected (NOT DETECT) 05/13/22 14:14 Adenovirus (PCR) Not detected (NOT DETECT) 05/13/22 14:14 C. pneumoniae DNA (PCR) Not detected (NOT DETECT) 05/13/22 14:14 Coronavirus 229E (PCR) Not detected (NOT DETECT) 05/13/22 14:14 Human Metapneumovir PCR Not detected (NOT DETECT) 05/13/22 14:14 Influenza A (H1) PCR Not detected (NOT DETECT) 05/13/22 14:14 Influenza A (H3) PCR Not detected (NOT DETECT) 05/13/22 14:14 Influenza Type A (PCR) Not detected (NOT DETECT) 05/13/22 14:14 Influenza Type B (PCR) Not detected (NOT DETECT) 05/13/22 14:14 M. pneumoniae (PCR) Not detected (NOT DETECT) 05/13/22 14:14 Parainfluenza 1 (PCR) Not detected (NOT DETECT) 05/13/22 14:14 Parainfluenza 2 (PCR) Not detected (NOT DETECT) 05/13/22 14:14 Parainfluenza 3 (PCR) Not detected (NOT DETECT) 05/13/22 14:14 Parainfluenza 4 (PCR) Not detected (NOT DETECT) 05/13/22 14:14 RSV Type A (PCR) Not detected (NOT DETECT) 05/13/22 14:14 RSV Type B (PCR) Not detected (NOT DETECT) 05/13/22 14:14 Entero/Rhino (PCR) Not detected (NOT DETECT) 05/13/22 14:14 SARS-CoV-2 (PCR) Not detected (NOT DETECT) 05/13/22 14:14 Discharge Plan Discharge Patient Disposition: Admitted As Inpatient Admit Provider: Anthony Jack Clinical Impression: Acute on chronic diastolic CHF (congestive heart failure), Respiratory distress, Chronic anemia, ESRD on hemodialysis Condition: Stable Coding Level of Care Code ED Windows Systems Engineer for Chg Fwd Documented by User: Jalen Parks DO 05/14/22 05:48 HPI - Weakness General: Chief complaint: Weakness Stated complaint: WEAKNESS/ DIALYSIS PT Time Seen by Provider: 05/13/22 10:39 PFSH ED PFSH: Medical History Anemia Carotid stenosis COPD (chronic obstructive pulmonary disease) Coronary artery disease 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 Diabetes Diastolic congestive heart failure End stage renal disease Essential hypertension GERD (gastroesophageal reflux disease) Intermittent atrial fibrillation Interstitial lung disease Third degree heart block Status post pacemaker placement Surgical History Hemodialysis access site with arteriovenous graft History of laparoscopic cholecystectomy History of tubal ligation S/P hemodialysis catheter insertion Status post colonoscopy (12/30/19) Family History Mother Cancer Lung cancer Father Diabetes Other CAD (coronary artery disease) Denies family history of Anesthesia complication Bleeding disorder Social History Smoking and tobacco status: former smoker Quit status (tobacco): has quit using tobacco Year quit tobacco: 1983 Former quit date comment: 2ppd x 19 years Alcohol intake: never Physical Exam Neuro: JOSEPH COMA SCALE: document GCS findings [place] coma scale total score: 15 Course 2 Vital Signs: Vital signs: Vital Signs Temperature 98.2 F 05/14/22 04:00 Pulse Rate 67 05/14/22 04:00 Respiratory Rate 16 05/14/22 04:00 Blood Pressure 137/61 05/14/22 04:00 Pulse Oximetry 98 05/14/22 04:00 Oxygen Delivery Me thod 05/13/22 18:39 Oxygen Flow Rate 3 05/13/22 17:08 MDM - Weakness Medical Decision Making Patient is a nice 87-year-old female with an extensive medical history here for complaints of weakness and fatigue over the past 2 to 3 weeks. Primary care has had increase her oxygen and she is now wearing 2L continuously. She arrived to the ED satting at 87% on her 2L dropped to 79% with ambulation. CXR showing early interstitial edema. Her BNP is over 32,000. Baseline troponin is elevated at 83 most likely secondary to her BNP. Her EKG shows no ischemic changes and no changes when compared to previous EKGs. Her last echo was in 07/2021 showing an EF of roughly 55%. UA is pending-took a while to be collected as patient makes very little urine. She is anemic with a hemoglobin of 8.3. This is fairly stable when compared to previous hemoglobins obtained from her dialysis clinic. I did perform hemoccult which was negative. Patient will require hospitalization for treatment of her hypoxia and worsening CHF. I spoke to Dr. Ricks who accepts admit. I will speak to nephrology on-call as patient will need to be dialyzed while in the hospital. Chart reviewed and patient discussed with midlevel. Agree with assessment and plan. Lab Data 05/13/22 11:30 05/13/22 11:30 Radiology Impressions Chest X-Ray 05/13/22 11:06 Impression: Early interstitial edema Atherosclerosis and permanent pacemaker. Chest CTA 05/13/22 13:44 IMPRESSION: 1. Negative for pulmonary embolus. 2. Multiple enlarged mediastinal lymph nodes measuring up to 18 mm, nonspecific. 3. Cardiomegaly. 4. Coronary artery atherosclerotic calcifications. 5. Pacemaker. 6. Cholecystectomy. 7. Moderate bilateral pleural effusions. 8. Patchy bilateral dependent airspace infiltrates with bilateral ground-glass airspace opacity suggestive of alveolar edema. Laboratory Results WBC 8.4 10^3/uL (4.0-10.0) 05/13/22 11:30 RBC 2.66 10^6/uL (4.1-5.3) L 05/13/22 11:30 Hgb 8.3 g/dL (11.5-15.3) L 05/13/22 11:30 Hct 27.5 % (37.0-47.0) L 05/13/22 11:30 MCV 103.4 fl (81-99) H 05/13/22 11:30 MCH 31.2 pg (28.0-34.0) 05/13/22 11:30 MCHC 30.2 g/dL (30.0-36.0) 05/13/22 11:30 RDW 16.1 % (12.1-15.1) H 05/13/22 11:30 Plt Count 326 10^3/cmm (130-400) 05/13/22 11:30 MPV 9.5 fL (7.4-10.4) 05/13/22 11:30 Neut % (Auto) 80.3 % 05/13/22 11:30 Lymph % (Auto) 9.5 % 05/13/22 11:30 [place] % (Auto) 6.2 % 05/13/22 11:30 Eos % (Auto) 3.0 % 05/13/22 11:30 Baso % (Auto) 0.6 % 05/13/22 11:30 Neut # (Auto) 6.78 10^3/uL (1.8-7.7) 05/13/22 11:30 Lymph # (Auto) 0.8 10^3/uL (0.8-4.8) 05/13/22 11:30 [place] # (Auto) 0.5 10^3/uL (0.2-0.9) 05/13/22 11:30 Eos # (Auto) 0.3 10^3/uL (0.0-0.8) 05/13/22 11:30 Baso # (Auto) 0.1 10^3/uL (0.0-0.1) 05/13/22 11:30 Nucleated RBC % (auto) 0 % 05/13/22 11:30 Nucleated RBCs # 0.0 /100WBC 05/13/22 11:30 Sodium 139 mmol/L (136-145) 05/13/22 11:30 Potassium 3.9 mmol/L (3.5-5.1) 05/13/22 11:30 Chloride 93 mmol/L (98-107) L 05/13/22 11:30 Carbon Dioxide 32 mmol/L (22-29) H 05/13/22 11:30 Anion Gap 17.9 (5-19) 05/13/22 11:30 BUN 39 mg/dL (8-23) H 05/13/22 11:30 Creatinine 4.7 mg/dL (0.5-0.9) H 05/13/22 11:30 GFR Calculation Not Reportable 05/13/22 11:30 Glucose 165 mg/dL (65-115) H 05/13/22 11:30 Calculated Osmolality 301 mOsm/kg (285-295) H 05/13/22 11:30 Calcium 8.8 mg/dL (8.5-10.5) 05/13/22 11:30 Iron 36 ug/dL (37-145) L 05/13/22 13:50 TIBC 195 mcg/dl 05/13/22 13:50 % Saturation 18.4 % (20-50) L 05/13/22 13:50 Unsat Iron Binding 159 ug/dL (112-347) 05/13/22 13:50 Total Bilirubin 0.3 mg/dL (0.15-1.2) 05/13/22 11:30 AST 20 U/L (0-32) 05/13/22 11:30 ALT 16 U/L (0-33) 05/13/22 11:30 Alkaline Phosphatase 71 U/L (35-105) 05/13/22 11:30 Troponin T Baseline 83 ng/L (0-10) H 05/13/22 11:30 Troponin T 120 Minute 76.54 ng/L (0-10) H 05/13/22 13:50 Delta Troponin T -6.46 ABS# (0-10) L 05/13/22 13:50 NT-Pro-B Natriuret Pep 48986 pg/mL (0-450) H 05/13/22 11:30 Total Protein 7.0 g/dL (6.6-8.7) 05/13/22 11:30 Albumin 3.7 g/dL (3.5-5.2) 05/13/22 11:30 Globulin 3.3 g/dL (1.3-4.6) 05/13/22 11:30 Vitamin B12 1110 pg/mL (232-1245) 05/13/22 13:50 Procalcitonin 0.19 ng/mL (0-0.5) 05/13/22 13:50 TSH 3.10 uIU/mL (0.27-4.20) 05/13/22 11:30 Urine Color Yellow (Yellow) 05/13/22 13:35 Urine Appearance Clear (CLEAR) 05/13/22 13:35 Urine pH 9 (5-7) H 05/13/22 13:35 Ur Specific [place] 1.010 (1.005-1.030) 05/13/22 13:35 Urine Protein 1+ (Negative) H 05/13/22 13:35 Urine Glucose (UA) Norm (Normal) 05/13/22 13:35 Urine Ketones Negative (Negative) 05/13/22 13:35 Urine Blood Neg (Negative) 05/13/22 13:35 Urine Nitrate Negative (Negative) 05/13/22 13:35 Urine Bilirubin Neg (Negative) 05/13/22 13:35 Prot Sulfosalicylic Acd Positive (Negative) 05/13/22 13:35 Urine Urobilinogen Neg mg/dL (Negative) 05/13/22 13:35 Ur Leukocyte Esterase Negative (Negative) 05/13/22 13:35 Urine RBC None /hpf (0-2) 05/13/22 13:35 Urine WBC 0-4 /hpf (0-5) H 05/13/22 13:35 Ur Squamous Epith Cells 0-4 /hpf (0-5) H 05/13/22 13:35 Amorphous Sediment Not Reportable 05/13/22 13:35 Urine Bacteria None /hpf (NONE) 05/13/22 13:35 Nasal Influ A H1 2008 PCR Not detected (NOT DETECT) 05/13/22 14:14 Adenovirus (PCR) Not detected (NOT DETECT) 05/13/22 14:14 C. pneumoniae DNA (PCR) Not detected (NOT DETECT) 05/13/22 14:14 Coronavirus 229E (PCR) Not detected (NOT DETECT) 05/13/22 14:14 Human Metapneumovir PCR Not detected (NOT DETECT) 05/13/22 14:14 Influenza A (H1) PCR Not detected (NOT DETECT) 05/13/22 14:14 Influenza A (H3) PCR Not detected (NOT DETECT) 05/13/22 14:14 Influenza Type A (PCR) Not detected (NOT DETECT) 05/13/22 14:14 Influenza Type B (PCR) Not detected (NOT DETECT) 05/13/22 14:14 M. pneumoniae (PCR) Not detected (NOT DETECT) 05/13/22 14:14 Parainfluenza 1 (PCR) Not detected (NOT DETECT) 05/13/22 14:14 Parainfluenza 2 (PCR) Not detected (NOT DETECT) 05/13/22 14:14 Parainfluenza 3 (PCR) Not detected (NOT DETECT) 05/13/22 14:14 Parainfluenza 4 (PCR) Not detected (NOT DETECT) 05/13/22 14:14 RSV Type A (PCR) Not detected (NOT DETECT) 05/13/22 14:14 RSV Type B (PCR) Not detected (NOT DETECT) 05/13/22 14:14 Entero/Rhino (PCR) Not detected (NOT DETECT) 05/13/22 14:14 SARS-CoV-2 (PCR) Not detected (NOT DETECT) 05/13/22 14:14 Discharge Plan Discharge Patient Disposition: Admitted As Inpatient Admit Provider: Anthony Jack Clinical Impression: Acute on chronic diastolic CHF (congestive heart failure), Respiratory d istress, Chronic anemia, ESRD on hemodialysis Condition: Stable Coding Level of Care Code ED Windows Systems Engineer for Elizabeth Lewis
[2022-05-13 11:45] LABS: Basophils # 0.1 10^3/uL (0.0-0.1); Basophils % 0.6 %; Eosinophils # 0.3 10^3/uL (0.0-0.8); Hematocrit 27.5 % (37.0-47.0); Hemoglobin 8.3 g/dL (11.5-15.3); Lymphocytes # 0.8 10^3/uL (0.8-4.8); Lymphocytes % 9.5 %; Mean Corpuscular HGB Conc 30.2 g/dL (30.0-36.0); Mean Corpuscular Hemoglobin 31.2 pg (28.0-34.0); Mean Corpuscular Volume 103.4 fl (81-99); Mean Platelet Volume 9.5 fL (7.4-10.4); Monocytes # 0.5 10^3/uL (0.2-0.9); Monocytes % 6.2 %; Neutrophils # 6.78 10^3/uL (1.8-7.7); Neutrophils % 80.3 %; Nucleated Red Blood Cells % 0 %; Platelet Count 326 10^3/cmm (130-400); Red Blood Count 2.66 10^6/uL (4.1-5.3); Red Cell Distribution Width 16.1 % (12.1-15.1); White Blood Count 8.4 10^3/uL (4.0-10.0)
[2022-05-13 12:06] LABS: Troponin(5th) Baseline 83 ng/L (0-10)
[2022-05-13 12:16] LABS: Alanine Aminotransferase 16 U/L (0-33); Albumin Level 3.7 g/dL (3.5-5.2); Alkaline Phosphatase 71 U/L (35-105); Anion Gap 17.9 (5-19); Aspartate Amino Transferase 20 U/L (0-32); Blood Urea Nitrogen 39 mg/dL (8-23); Calcium 8.8 mg/dL (8.5-10.5); Carbon Dioxide 32 mmol/L (22-29); Chloride 93 mmol/L (98-107); Globulin 3.3 g/dL (1.3-4.6); Glucose 165 mg/dL (65-115); NT Pro B Type Natriuretic Pept 32582 pg/mL (0-450); Osmolality Calculated 301 mOsm/kg (285-295); Potassium 3.9 mmol/L (3.5-5.1); Sodium 139 mmol/L (136-145); Total Bilirubin 0.3 mg/dL (0.15-1.2)
--- NOTE | 2022-05-13 13:07 | ECG_ITS ---
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 Measurements Intervals [place] Rate: 82 P: 118 SD: 175 QRS: -71 QRSD: 158 T: 81 QT: 432 QTc: 505 Interpretive Statements ELECTRONIC ATRIAL PACEMAKER ELECTRONIC VENTRICULAR PACEMAKER Compared to ECG 05/13/2022 11:08:03 No significant changes Electronically Signed On 05-13-2022 16:03:59 CDT by Pedro Silvestre M.D. [id number]
--- NOTE | 2022-05-13 13:44 | CTR_ITS ---
PROCEDURE INFORMATION: Exam: CTA Chest With Contrast Exam date and time: 05/13/2022 3:24 PM Age: 87 years old Clinical indication: Dyspnea; Additional info: Dyspnea/hypoxia TECHNIQUE: Imaging protocol: Computed tomographic angiography of the chest with contrast. 3D rendering (Not supervised by radiologist): MIP and/or 3D reconstructed images were created by the technologist. Radiation optimization: All CT scans at this facility use at least one of these dose optimization techniques: automated exposure control; mA and/or kV adjustment per patient size (includes targeted exams where dose is matched to clinical indication); or iterative reconstruction. Contrast material: OMNI 350; Contrast volume: 67 ml; Contrast route: INTRAVENOUS (IV); REPORTING DATA: Count of CT and Cardiac NM exams in prior 12 months: This patient has received [address] and 0 known cardiac nuclear medicine studies in the 12 months prior to the current study. COMPARISON: CT angio chest PE protcl [id number] 01/03/2021 6:47 PM RADIATION DOSE METRICS: Total DLP (mGy-cm): 281.5 FINDINGS: Tubes, catheters and devices: Pacemaker. Pulmonary arteries: Normal. No pulmonary emboli. Aorta: Unremarkable. No aortic aneurysm. No aortic dissection. Lungs: Patchy bilateral dependent airspace infiltrates with bilateral ground-glass airspace opacity suggestive of alveolar edema. Pleural spaces: Moderate bilateral pleural effusions. Heart: Cardiomegaly. Coronary arteries: Coronary artery atherosclerotic calcifications. Lymph nodes: Multiple enlarged mediastinal lymph nodes measuring up to 18 mm, nonspecific. Gallbladder and bile ducts: Cholecystectomy. Bones/joints: Unremarkable. No acute fracture. Soft tissues: Unremarkable. CT/CT angio chest PE protcl [id number] IMPRESSION: 1. Negative for pulmonary embolus. 2. Multiple enlarged mediastinal lymph nodes measuring up to 18 mm, nonspecific. 3. Cardiomegaly. 4. Coronary artery atherosclerotic calcifications. 5. Pacemaker. 6. Cholecystectomy. 7. Moderate bilateral pleural effusions. 8. Patchy bilateral dependent airspace infiltrates with bilateral ground-glass airspace opacity suggestive of alveolar edema.
--- NOTE | 2022-05-13 13:48 | PM.HP ---
Providers/Chief Complaint Primary Care Provider: Magdiel Amador MD Chief Complaint: WEAKNESS/ DIALYSIS PT History of Present Illness Galina Saba is a 87 year old female with past medical history of incisional disease on hemodialysis, anemia secondary to GI loss, COPD on supplemental oxygen of 2 L at home, CAD post PCI 3 years ago, post pacemaker implantation presents to the ER today because of worsening difficulty in breathing gradually over the last 3 weeks along with weakness and tiredness. Patient states around 3 weeks ago she was diagnosed with possible pneumonia and started on oral antibiotics for few days by her primary care provider which she took for around 4 to 5 days after which her fevers went away but has been having worsening difficulty in breathing since then. At baseline as per the patient and her family she is fairly active but has been getting weaker over the last 3 weeks. Today she was supposed to go for dialysis but was not able to heads family brought her to the ER. Patient herself denies any nausea, vomiting, headache. States shortness of breath gets worse prior to sleeping when she lies down and associated with bouts of cough with mild expectoration more than her baseline. Denies any chest pain. Complains of swelling in her left arm. Blood work in the ER showed a white blood cell count, hemoglobin of 8.3 which seems to her baseline, sodium 139, potassium of 3.9, creatinine of 4.7 with BUN of 39, baseline troponin of 83 with a 2-hour delta of -6, proBNP of more than 32,000, UA negative for any signs of infection. Review of Systems General: Reports: 10 or more systems reviewed and unremarkable except in HPI and below Const: Denies: fever(s), chills, body aches, change in appetite, change in weight, malaise, night sweats, diaphoresis, change in sleep pattern, daytime sleepiness or snoring Eyes: Denies: change in vision, blurry vision, photophobia, eye discomfort or eye discharge ENMT: Denies: throat pain, enlarged tonsils, hoarseness, mouth pain, oral sores, dry mouth, tinnitus, nasal congestion or post nasal drip Card: Denies: chest pain, palpitations, irregular heart rhythm, edema, swelling of feet/ankles, lightheadedness, syncope, pre-syncope, dyspnea on exertion, orthopnea, leg pain with exertion or acrocyanosis Resp: Denies: dyspnea, productive cough, non-productive cough, wheezing, stridor, pain on inspiration, change in phlegm color, hemoptysis or chest congestion GI: Denies: abdominal pain, nausea, vomiting, hematemesis, coffee ground emesis, dysphagia, heartburn, diarrhea, constipation, bloating, GI cramping, change in bowel habits, pain on defecation, hematochezia or melena : Denies: flank pain, dysuria, urinary frequency, urinary urgency, urinary hesitancy, nocturia or hematuria Musc: Denies: neck pain, back pain, extremity pain, joint pain, joint swelling, joint redness, joint stiffness or limited range of motion Neuro: Denies: headache(s), numbness in extremities, weakness in extremities, sensory changes, lack of coordination, difficulty walking, frequent falls, dizziness, vertigo, confusion, Slurred speech present, difficulty communicating thoughts or seizure-like activity Psych: Denies: anxiety, depression, mood swings, panic attacks, hopelessness or irritability Endo: Denies: polyuria, polydipsia, tired all the time, cold intolerance, excessive sweating, flushing or heat intolerance Munir/Lymph: Denies: easy bruising or easy bleeding All/Imm: Denies: tongue swelling, facial swelling or acute wheezing Medications/Allergies Home Medications Medication Instructions Recorded Confirmed Last Taken Type alprazolam 0.25 mg tablet 0.25 mg PO BEDTIME 04/15/19 05/13/22 05/12/22 History linagliptin 5 mg tablet (Tradjenta) 5 mg PO DAILY 04/15/19 05/13/22 05/13/22 History metoprolol succinate 25 mg 12.5 mg PO DAILY 05/31/19 05/13/22 05/13/22 History tablet,extended release 24 hr cholecalciferol (vitamin D3) 50 50 mcg PO DAILY 06/16/19 05/13/22 05/13/22 History mcg (2,000 unit) tablet (Vitamin D3) vit B,C-folic ac 800 mcg-zinc 12.5 1 tab PO QPM 06/16/19 05/13/22 05/12/22 History mg-selen-D3 2,000 unit-vit E tablet (RenaPlex-D) furosemide 40 mg tablet 40 mg PO DAILY 10/07/19 05/13/22 05/13/22 History atorvastatin 40 mg tablet 40 mg PO BEDTIME 11/17/19 05/13/22 05/12/22 History clopidogrel 75 mg tablet (Plavix) 75 mg PO DAILY 11/17/19 05/13/22 05/13/22 History nitroglycerin 0.4 mg sublingual 0.4 mg sublingual Q5M PRN Chest 11/17/19 05/13/22 Unknown History tablet (Nitrostat) Pain acetaminophen 500 mg tablet 500 - 1,000 mg PO PRN PRN pain 07/31/20 05/13/22 Unknown History (Tylenol Extra Strength) calcium carbonate 200 mg calcium 200 mg PO BID PRN Heartburn 07/31/20 05/13/22 Unknown History (500 mg) chewable tablet (Tums) fluticasone propionate 50 1 spray intranasal DAILY 07/30/21 05/13/22 10/11/21 History mcg/actuation nasal spray,suspension vit C,E,zinc,copper-prbyw6d 250 1 cap PO DAILY 07/30/21 05/13/22 05/13/22 History mg-lutein 5 mg-zeaxanthin 1 mg capsule losartan 50 mg tablet 50 mg PO DAILY 08/16/21 05/13/22 05/13/22 History amlodipine 10 mg tablet 10 mg PO BEDTIME 10/11/21 05/13/22 05/12/22 History cyanocobalamin (vitamin B-12) 1,000 mcg PO DAILY 10/11/21 05/13/22 05/12/22 History 1,000 mcg tablet (Vitamin B-12) omeprazole 40 mg capsule,delayed 40 mg PO BID 10/11/21 05/13/22 05/13/22 History release aspirin 81 mg tablet 81 mg PO DAILY 10/18/21 05/13/22 05/13/22 History ropinirole 0.25 mg tablet 0.25 mg PO DAILY PRN restless legs 05/13/22 05/13/22 Unknown History Allergies Allergy/AdvReac Type Severity Reaction Status Date / Time lisinopril Allergy Unknown Unknown Verified 11/03/21 08:44 morphine AdvReac Intermediate ADR-Nausea Verified 11/03/21 08:44 PFSH Acute PFSH: Medical History Anemia Carotid stenosis COPD (chronic obstructive pulmonary disease) Coronary artery disease 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 Diabetes Diastolic congestive heart failure End stage renal disease Essential hypertension GERD (gastroesophageal reflux disease) Intermittent atrial fibrillation Interstitial lung disease Third degree heart block Status post pacemaker placement Surgical History Hemodialysis access site with arteriovenous graft History of laparoscopic cholecystectomy History of tubal ligation S/P hemodialysis catheter insertion Status post colonoscopy (12/30/19) Family History Mother Cancer Lung cancer Father Diabetes Other CAD (coronary artery disease) Denies family history of Anesthesia complication Bleeding disorder Social History Smoking and tobacco status: former smoker Quit status (tobacco): has quit using tobacco Year quit tobacco: 1983 Former quit date comment: 2ppd x 19 years Alcohol intake: never Vitals/I&O/Wt Last Vital Signs Temp 98.3 F 05/13/22 10:45 Pulse 75 05/13/22 10:45 Resp 14 05/13/22 10:45 BP 163/54 05/13/22 10:45 Pulse Ox 100 05/13/22 10:45 O2 Del Method 05/13/22 10:45 O2 Flow Rate 4 05/13/22 10:45 Weight last 48 hrs Weight 48.534 kg Physical Exam Narrative: EXAM NARRATIVE: General: No acute distress, AO x3, NC oxygen supplementation, pallor present HEENT: PERRLA, pupils bilaterally equal and reactive Chest:Bronchial breath sounds b/l ,decreased air entry, equal good air entry bilaterally, no more fine basal crackles CVS: S1-S2 regular, soft ejection systolic murmur at aortic area to carotids 2/6, no tachycardia, no gallops, no rubs Abdomen: Soft, nontender, no organomegaly, bowel sounds present, morbidly obese Neuro: No focal deficits, no facial deformity, AO x3, power 5/5 in all limbs Left arm: Slightly swollen more than right arm. AV fistula present, thrill present. Data 05/13/22 11:30 05/13/22 11:30 A&P Assessment and plan (1) Hypoxia: (2) Acute on chronic diastolic CHF (congestive heart failure): (3) ESRD on hemodialysis: (4) Chronic anemia: (5) Coronary artery disease: Qualifiers: Associated angina: without angina Coronary Disease-Associated Artery/Lesion type: [place] artery [place] vs. transplanted heart: [place] heart Qualified Code(s): I25.10 - Atherosclerotic heart disease of [place] coronary artery without angina pectoris (6) History of permanent cardiac pacemaker placement: (7) Essential hypertension: (8) Hemodialysis access site with arteriovenous graft: Plan 87-year-old female with past medical history of end-stage renal disease on hemodialysis, diastolic heart failure, chronic anemia presented to the ER because of worsening weakness and shortness of breath overnight.. Shortness of breath: Most likely in setting of acute on chronic diastolic heart failure on hemodialysis. Pneumonia less likely. Check CTA. Check respiratory viral panel. Check sputum culture, urine Legionella, bacterial antigen, procalcitonin, MRSA swab, blood culture. Hold off on starting of antibiotics for now. Last echocardiogram 06/13/2021 shows an EF of 55% without regional wall motion abnormality with mild AI, moderate pulmonary hypertension with RVSP of 50 mmHg. Repeat echocardiogram. IV Lasix 40 mg twice daily along with metolazone 5 mg daily. Consult nephrology for hemodialysis. Strict input output charting, daily weights. Oxygen supplementation keeping saturation over 90%. Weakness: Most likely in setting of congestive heart failure and chronic anemia in a patient with end-stage renal disease. Check iron panel, vitamin B12, folate level, TSH. Chronic anemia: Check iron panel, vitamin B12, folate levels. Baseline hemoglobin seems to be around 8.9-10. Currently 8.3. Denies any melena. Protonix 40 mg twice daily. Check stools for occult blood. Hypertension: Goal blood pressure less than 140/90 mmHg. Continue with home dose of amlodipine, losartan, metoprolol. Will uptitrate as for goal blood pressures. History of CAD: Denies any active chest pain. Depending on regional wall motion modality on echocardiogram we will plan for stress test. Continue with home dose of Plavix, statin. Check A1c, lipid panel. CODE STATUS: Discussed in detail with the patient and patient's family at bedside. Full code. Renal diet. Protonix for PUD prophylaxis Heparin for DVT prophylaxis. Attestations Medical Necessity Statement*: Admission for more than 2 midnights for further evaluation and management of shortness of breath in a patient with baseline diastolic heart failure, end-stage renal disease on hemodialysis with chronic anemia Diagnoses Hypoxia R09.02 Acute on chronic diastolic CHF (congestive heart failure) I50.33 ESRD on hemodialysis N18.6; Z99.2 Chronic anemia D64.9 Coronary artery disease I25.10 Associated angina: without angina Coronary Disease-Associated Artery/Lesion type: [place] artery [place] vs. transplanted heart: [place] heart History of permanent cardiac pacemaker placement Z95.0 Essential hypertension I10 Hemodialysis access site with arteriovenous graft Z99.2
[2022-05-13 14:19] LABS: Urine Color Yellow (Yellow)
[2022-05-13 14:20] LABS: Add Urine Culture? No; Add Urine Microscopic? YES; Bilirubin Urine Neg (Negative); Blood Urine Neg (Negative); Glucose Urine UA Norm (Normal); Ketones Urine Negative (Negative); Leukocyte Esterase Urine Negative (Negative); Nitrate Urine Negative (Negative); Protein Urine 1+ (Negative); Squamous Epithelial Cell Urine 0-4 /hpf (0-5); Sulfosalicylic Acid Urine Positive (Negative); Urine Appearance Clear (CLEAR); Urobilinogen Urine Neg (Negative); WBC Urine 0-4 /hpf (0-5); pH Urine 9 (5-7)
[2022-05-13 14:53] VITALS: BP 159/59; PULSE 77; O2SAT 93
[2022-05-13 15:02] LABS: Troponin 5 2HR 76.54 ng/L (0-10)
[2022-05-13 15:11] LABS: Troponin 5 2HR Delta -6.46 ABS# (0-10)
[2022-05-13] MEDS: iohexol 350 mg/mL 500 mL Btl (per mL) IV (15:33)
[2022-05-13 16:15] VITALS: BP 138/50; PULSE 75; O2SAT 98
--- NOTE | 2022-05-13 16:28 | PC.NURSE ---
report called to Lisa, social work coordinator
--- NOTE | 2022-05-13 17:07 | ECG_ITS ---
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 Measurements Intervals [place] Rate: 84 P: 0 VT: 0 QRS: -70 QRSD: 156 T: 81 QT: 430 QTc: 511 Interpretive Statements ELECTRONIC VENTRICULAR PACEMAKER ABNORMAL RHYTHM ECG Compared to ECG 05/13/2022 13:29:10 Atrial-paced complex(es) or rhythm no longer present Electronically Signed On 05-14-2022 23:13:37 CDT by Alessandro Carney M.D. [id number]
[2022-05-13 17:08] VITALS: BP 161/58; O2SAT 99
[2022-05-13 17:31] LABS: Adenovirus Not Detected (NOT DETECT); Chlamydia Pneumoniae Not Detected (NOT DETECT); Coronavirus 229E,HKU1,NL63,OC4 Not Detected (NOT DETECT); Human Metapneumovirus Not Detected (NOT DETECT); Human Rhinovirus/Enterovirus Not Detected (NOT DETECT); Influenza A Not Detected (NOT DETECT); Influenza A H1 Not Detected (NOT DETECT); Influenza A H1-2009 Not Detected (NOT DETECT); Influenza A H3 Not Detected (NOT DETECT); Influenza B Not Detected (NOT DETECT); Mycoplasma Pneumoniae Not Detected (NOT DETECT); Parainfluenza Virus Type 1 Not Detected (NOT DETECT); Parainfluenza Virus Type 2 Not Detected (NOT DETECT); Parainfluenza Virus Type 3 Not Detected (NOT DETECT); Parainfluenza Virus Type 4 Not Detected (NOT DETECT); Respiratory Syncytial Virus A Not Detected (NOT DETECT); Respiratory Syncytial Virus B Not Detected (NOT DETECT); SARS-COV-2 Not Detected (NOT DETECT)
[2022-05-13 18:25] LABS: Iron 36 ug/dL (37-145); Percent Saturation 18.4 % (20-50); Total Iron Binding Capacity 195 mcg/dl; Unsaturated Iron Binding 159 ug/dL (112-347)
[2022-05-13 18:40] LABS: Procalcitonin 0.19 ng/mL (0-0.5); Vitamin B12 1110 pg/mL (232-1245)
[2022-05-13 19:21] LABS: Folate Level > 20.0 ng/mL (4.8-37.3)
[2022-05-13 19:42] VITALS: BP 143/83; PULSE 77; RESP 17; TEMP 37.1; O2SAT 99
[2022-05-13] MEDS: metOLazone 5 MG Tablet PO (20:29)
[2022-05-13] MEDS: ferrous gluconate 324 mg Tablet PO (20:29)
[2022-05-13] MEDS: ALPRAZolam 0.5 mg Tablet 0.25 MG PO (20:29)
[2022-05-13] MEDS: amlodipine 10 mg Tablet PO (20:29)
[2022-05-13] MEDS: sennosides 8.6 mg Tablet 17.2 MG PO (20:29)
[2022-05-13] MEDS: atorvastatin 40 mg Tablet PO (20:29)
[2022-05-13] MEDS: heparin 5,000 unit/mL INJ 1 mL 5000 UNIT SUBCUT (20:46)
[2022-05-13] MEDS: FUROsemide 10 mg/mL SDV 4mL 40 MG IVP (20:54)
[2022-05-13 21:35] LABS: Glucose Point of Care 156 mg/dL (70-110)
--- NOTE | 2022-05-13 21:37 | PM.CONSULT ---
Providers/Reason For Consult Consulting Physician/Specialty*: [place]/Nephrology Reason for Consult*: ESRD Attending Physician: Anthony Jack MD Primary Care Provider: Magdiel Amador MD History of Present Illness History of Present Illness Galina Saba is a 87 year old female With past medical history of end-stage renal disease on hemodialysis per Friday schedule, COPD on O2 dependent 2 L at home, coronary artery disease history of pacemaker presented to the emergency department due to shortness of breath and generalized weakness. Lab data showed hemoglobin of 8.3 potassium 3.9. proBNP was elevated at 32,000. CT angiogram was negative for PE but showed vascular congestion. Review of Systems Narrative: negative Medications/Allergies Home Medications Medication Instructions Recorded Confirmed Last Taken Type alprazolam 0.25 mg tablet 0.25 mg PO BEDTIME 04/15/19 05/13/22 05/12/22 History linagliptin 5 mg tablet (Tradjenta) 5 mg PO DAILY 04/15/19 05/13/22 05/13/22 History metoprolol succinate 25 mg 12.5 mg PO DAILY 05/31/19 05/13/22 05/13/22 History tablet,extended release 24 hr cholecalciferol (vitamin D3) 50 50 mcg PO DAILY 06/16/19 05/13/22 05/13/22 History mcg (2,000 unit) tablet (Vitamin D3) vit B,C-folic ac 800 mcg-zinc 12.5 1 tab PO QPM 06/16/19 05/13/22 05/12/22 History mg-selen-D3 2,000 unit-vit E tablet (RenaPlex-D) furosemide 40 mg tablet 40 mg PO DAILY 10/07/19 05/13/22 05/13/22 History atorvastatin 40 mg tablet 40 mg PO BEDTIME 11/17/19 05/13/22 05/12/22 History clopidogrel 75 mg tablet (Plavix) 75 mg PO DAILY 11/17/19 05/13/22 05/13/22 History nitroglycerin 0.4 mg sublingual 0.4 mg sublingual Q5M PRN Chest 11/17/19 05/13/22 Unknown History tablet (Nitrostat) Pain acetaminophen 500 mg tablet 500 - 1,000 mg PO PRN PRN pain 07/31/20 05/13/22 Unknown History (Tylenol Extra Strength) calcium carbonate 200 mg calcium 200 mg PO BID PRN Heartburn 07/31/20 05/13/22 Unknown History (500 mg) chewable tablet (Tums) fluticasone propionate 50 1 spray intranasal DAILY 07/30/21 05/13/22 10/11/21 History mcg/actuation nasal spray,suspension vit C,E,zinc,copper-fqkzp1s 250 1 cap PO DAILY 07/30/21 05/13/22 05/13/22 History mg-lutein 5 mg-zeaxanthin 1 mg capsule losartan 50 mg tablet 50 mg PO DAILY 08/16/21 05/13/22 05/13/22 History amlodipine 10 mg tablet 10 mg PO BEDTIME 10/11/21 05/13/22 05/12/22 History cyanocobalamin (vitamin B-12) 1,000 mcg PO DAILY 10/11/21 05/13/22 05/12/22 History 1,000 mcg tablet (Vitamin B-12) omeprazole 40 mg capsule,delayed 40 mg PO BID 10/11/21 05/13/22 05/13/22 History release aspirin 81 mg tablet 81 mg PO DAILY 10/18/21 05/13/22 05/13/22 History ropinirole 0.25 mg tablet 0.25 mg PO DAILY PRN restless legs 05/13/22 05/13/22 Unknown History Allergies Allergy/AdvReac Type Severity Reaction Status Date / Time lisinopril Allergy Unknown Unknown Verified 11/03/21 08:44 morphine AdvReac Intermediate ADR-Nausea Verified 11/03/21 08:44 Current Medications Generic Name Dose Route Start Last Admin Trade Name Yahaira PRN Reason Stop Dose Admin Alprazolam 0.25 mg 05/13/22 21:00 05/13/22 20:29 Alprazolam 0.5 Mg Tablet PO 0.25 mg BEDTIME ROSIBEL Administration Amlodipine Besylate 10 mg 05/13/22 21:00 05/13/22 20:29 Amlodipine 10 Mg Tablet PO 10 mg BEDTIME ROSIBEL Administration Atorvastatin Calcium 40 mg 05/13/22 21:00 05/13/22 20:29 Atorvastatin 40 Mg Tablet PO 40 mg BEDTIME ROSIBEL Administration Ferrous Gluconate 324 mg 05/13/22 18:25 05/13/22 20:29 Ferrous Gluconate 324 Mg Tablet PO 324 mg BIDWM ROSIBEL Administration Furosemide 40 mg 05/13/22 18:45 05/13/22 20:54 Furosemide 10 Mg/Ml Sdv 4ml IVP 40 mg Q12H ROSIBEL Administration Heparin Sodium (Porcine) 5,000 unit 05/13/22 20:00 05/13/22 20:46 Heparin 5,000 Unit/Ml Inj 1 Ml SUBCUT 5,000 unit Q12H ROSIBEL Administration Metolazone 5 mg 05/13/22 18:35 05/13/22 20:29 Metolazone 5 Mg Tablet PO 5 mg DAILY ROSIBEL Administration Senna 17.2 mg 05/13/22 21:00 05/13/22 20:29 Sennosides 8.6 Mg Tablet PO 17.2 mg BEDTIME ROSIBEL Administration PFSH Acute PFSH: Medical History Anemia Carotid stenosis COPD (chronic obstructive pulmonary disease) Coronary artery disease 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 Diabetes Diastolic congestive heart failure End stage renal disease Essential hypertension GERD (gastroesophageal reflux disease) Intermittent atrial fibrillation Interstitial lung disease Third degree heart block Status post pacemaker placement Surgical History Hemodialysis access site with arteriovenous graft History of laparoscopic cholecystectomy History of tubal ligation S/P hemodialysis catheter insertion Status post colonoscopy (12/30/19) Family History Mother Cancer Lung cancer Father Diabetes Other CAD (coronary artery disease) Denies family history of Anesthesia complication Bleeding disorder Social History Smoking and tobacco status: former smoker Quit status (tobacco): has quit using tobacco Year quit tobacco: 1983 Former quit date comment: 2ppd x 19 years Alcohol intake: never Vitals/I&O/Wt Last Vital Signs Temp 98.7 F 05/13/22 19:42 Pulse 77 05/13/22 19:42 Resp 17 05/13/22 19:42 BP 143/83 05/13/22 19:42 Pulse Ox 99 05/13/22 19:42 O2 Del Method 05/13/22 18:39 O2 Flow Rate 3 05/13/22 17:08 Weight last 48 hrs Weight 51.075 kg Weight 48.534 kg Physical Exam Narrative: Patient is awake alert, no acute distress Hard of hearing Clear to auscultation per report No pedal edema Data 05/13/22 11:30 05/13/22 11:30 A&P Assessment and plan (1) End stage renal disease: Plan End-stage renal disease: On HD per [facility] schedule as outpatient, patient now presented with volume overload. Missed hemodialysis today. Plan for HD tonight Acute on chronic respiratory failure: Multifactorial secondary to CHF and history of COPD. Hypertension: Restart home medications Chronic anemia: Continue to monitor CORA with hemoglobin of 10 Patient evaluated using audiovisual cart. Time spent 45 minutes Consult Attestations Medical Necessity Statement: I am expecting her stay to cross more than 2 midnights. Coding Level of Care Code Acute Code for Chg Fwd Diagnoses End stage renal disease N18.6
[2022-05-13 22:55] LABS: Troponin 5 6HR 79.33 ng/L (0-10)
[2022-05-13 22:58] LABS: Troponin 5 6HR Delta -3.67 ng/L (0-12)
[2022-05-13 23:10] LABS: Hepatitis A Antibody IgM Non-Reactive (Nonreactive); Hepatitis B Core AB, Total Non-Reactive (Nonreactive); Hepatitis B Surface AB 23.7 (11.5-1000); Hepatitis B Surface Antigen Non-Reactive (Nonreactive); Hepatitis C Virus Antibody Non-Reactive (Nonreactive)
[2022-05-14] VITALS (16 sets, daily range): BP systolic 119–160; BP diastolic 40–74; PULSE 62–77; RESP 14–18; TEMP 36.1–37.2; O2SAT 98–100
[2022-05-14 05:48] LABS: Basophils # 0.1 10^3/uL (0.0-0.1); Basophils % 0.8 %; Eosinophils # 0.2 10^3/uL (0.0-0.8); Eosinophils % 2.1 %; Hemoglobin 7.1 g/dL (11.5-15.3); Lymphocytes # 0.8 10^3/uL (0.8-4.8); Lymphocytes % 11.7 %; Mean Corpuscular HGB Conc 30.9 g/dL (30.0-36.0); Mean Corpuscular Hemoglobin 31.6 pg (28.0-34.0); Mean Corpuscular Volume 102.2 fl (81-99); Monocytes # 0.7 10^3/uL (0.2-0.9); Neutrophils # 5.38 10^3/uL (1.8-7.7); Neutrophils % 75.1 %; Nucleated Red Blood Cells % 0 %; Platelet Count 280 10^3/cmm (130-400); Red Blood Count 2.25 10^6/uL (4.1-5.3); Red Cell Distribution Width 15.9 % (12.1-15.1); White Blood Count 7.2 10^3/uL (4.0-10.0)
[2022-05-14 06:16] LABS: Alanine Aminotransferase 12 U/L (0-33); Albumin Level 3.1 g/dL (3.5-5.2); Alkaline Phosphatase 61 U/L (35-105); Anion Gap 13.1 (5-19); Aspartate Amino Transferase 18 U/L (0-32); Blood Urea Nitrogen 16 mg/dL (8-23); Calcium 8.3 mg/dL (8.5-10.5); Carbon Dioxide 33 mmol/L (22-29); Chloride 100 mmol/L (98-107); Chol HDL Ratio 1.95 mg/dL (0.0-4.40); Cholesterol 125 mg/dL (0-200); Globulin 2.8 g/dL (1.3-4.6); Glucose 135 mg/dL (65-115); HDL Cholesterol 64 mg/dL (60-100); LDL Cholesterol Calculated 37 mg/dL (50-129); Magnesium 1.9 mg/dL (1.7-2.3); Osmolality Calculated 297 mOsm/kg (285-295); Phosphorus 3.5 mg/dL (2.5-4.5); Potassium 4.1 mmol/L (3.5-5.1); Sodium 142 mmol/L (136-145); Total Bilirubin 0.4 mg/dL (0.15-1.2); Total Protein 5.9 g/dL (6.6-8.7); Triglycerides 122 mg/dL (0-150); VLDL Cholestrol Calculation 24 mg/dL (0-30)
[2022-05-14 06:20] LABS: Estmated Average Glucose 91; Hemoglobin A1C 4.8 % (4.0-6.0)
[2022-05-14 06:20] LABS: Glucose Point of Care 129 mg/dL (70-110)
--- NOTE | 2022-05-14 09:57 | PC.CHAP ---
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 [] Patient/Family/Request visit [] Outpatient visit [] Follow-up visit [] Physician referral [] Code/Alert [x] Routine visit [] Staff referral [] Actively dying [] Patient sleeping [x] Family support [] [] Out of room [] Palliative care [] [] Receiving care in room [] Pre-surgical visit [] Trauma [] Long length of stay [] ICU visit [] Other: Relational/Emotional Strength [x] Patient feels connected with others/family/visitors/staff [] Distress [] Loneliness/isolation [] Abandonment Spirituality of Patient [x] Person of Fannie [] Attends Tenriism of their Fannie [x] Believes in Prayer [] Reads Bible or Rastafarian materials [] There are Spiritual issues to be addressed Iap Displays Analyst Interventions [x] Prayer [] Active listening [] Non-anxious presence [] Spiritual/emotional support [] Crisis/trauma care [] Spiritual counseling [] Bereavement support [] Provided bereavement packet [] Provided Bible/devotional materials [] Provided toy/stuffed animal, coloring book to patient or family member [] Provided Communion [] Anointing/Independence [] Salvation [] Completed spiritual assessment [] Other: Impact on Illness or Injury [] Angry [] Fearful [] Anxious [] Often cries [] Exhaustion [] Unable to work [] Unable to attend adventist [] Unable to walk/stand [] Unable to read [] Unable to drive [] Unable to eat/drink [] Unable to sleep [] Unable to be with family [] Patient intubated [] Other: Summary Time spent with patient 5min
[2022-05-14] MEDS: metoprolol succinate ER (24 HR) 25 mg Tablet 12.5 MG PO (10:42)
[2022-05-14] MEDS: metOLazone 5 MG Tablet PO (10:42)
[2022-05-14] MEDS: cyanocobalamin 1,000 mcg Tablet 1000 MCG PO (10:42)
[2022-05-14] MEDS: aspirin 81 mg EC Tablet PO (10:42)
[2022-05-14] MEDS: losartan 50 mg Tablet PO (10:43)
[2022-05-14] MEDS: ferrous gluconate 324 mg Tablet PO ×2 (10:43→17:37)
[2022-05-14] MEDS: pantoprazole DR 40 mg Tablet PO ×2 (10:43→17:37)
[2022-05-14 12:33] LABS: Glucose Point of Care 158 mg/dL (70-110)
--- NOTE | 2022-05-14 13:27 | P.PN_ITS ---
Subjective Subjective: No acute events overnight. Seen with family at bedside. Patient underwent dialysis yesterday. Patient on examination sitting at bedside. Asking when can she go home. Saturating well on 2 L. Has remained hemodynamically stable and afebrile. Vitals/I&O/Wt Last Vital Signs Temp 98.4 F 05/14/22 12:45 Pulse 75 05/14/22 12:45 Resp 16 05/14/22 12:45 BP 141/50 05/14/22 12:45 Pulse Ox 100 05/14/22 12:45 O2 Del Method 05/14/22 12:00 O2 Flow Rate 2.5 05/14/22 12:00 05/13/22 05/14/22 05/14/22 22:59 06:59 14:59 Intake Total 240 / 240 620 / 860 240 / 240 Output Total 2895 / 2895 Balance 240 / 240 -2275 / -2035 240 / 240 Weight last 48 hrs Weight 51.846 kg Weight 110 kg Weight 51.075 kg Weight 48.534 kg Physical Exam Narrative: EXAM NARRATIVE: General: No acute distress, AO x3, NC oxygen supplementation, pallor present HEENT: PERRLA, pupils bilaterally equal and reactive Chest:Bronchial breath sounds b/l ,decreased air entry, equal good air entry bilaterally, no more fine basal crackles CVS: S1-S2 regular, soft ejection systolic murmur at aortic area to carotids 2/6, no tachycardia, no gallops, no rubs Abdomen: Soft, nontender, no organomegaly, bowel sounds present, morbidly obese Neuro: No focal deficits, no facial deformity, AO x3, power 5/5 in all limbs Left arm: Slightly swollen more than right arm. AV fistula present, thrill present. Data 05/14/22 05:27 05/14/22 05:27 Micro: Microbiology 05/13/22 13:35 Legionella Urinary Antigen - Final Unknown Source 05/13/22 13:35 Bacterial Antigens - Final Urine Kidney 05/13/22 22:06 Blood Culture - Preliminary Blood SPECIMEN COLLECTED 05/13/22 22:05 Blood Culture - Preliminary Blood SPECIMEN COLLECTED A&P Assessment and plan (1) Hypoxia: (2) Acute on chronic diastolic CHF (congestive heart failure): (3) ESRD on hemodialysis: (4) Chronic anemia: (5) Coronary artery disease: Qualifiers: Associated angina: without angina Coronary Disease-Associated Artery/Lesion type: three affiliated artery [place] vs. transplanted heart: three affiliated heart Qualified Code(s): I25.10 - Atherosclerotic heart disease of three affiliated coronary artery without angina pectoris (6) History of permanent cardiac pacemaker placement: (7) Essential hypertension: (8) Hemodialysis access site with arteriovenous graft: Plan 87-year-old female with past medical history of end-stage renal disease on hemo dialysis, diastolic heart failure, chronic anemia presented to the ER because of worsening weakness and shortness of breath overnight. Shortness of breath: Most likely in setting of acute on chronic diastolic heart failure along with worsening anemia on hemodialysis. Pneumonia and pulmonary embolism ruled out on CTA. Respiratory viral panel negative. Urine Legionella, bacterial antigen negative. Continue to hold off on starting of antibiotics for now. Last echocardiogram 06/13/2021 shows an EF of 55% without regional wall motion abnormality with mild AI, moderate pulmonary hypertension with RVSP of 50 mmHg. Repeat echocardiogram pending. Continue with IV Lasix 40 mg twice daily along with metolazone 5 mg daily. Appreciate nephrology recommendations. Continue with outpatient sessions of dialysis Strict input output charting, daily weights. Oxygen supplementation keeping saturation over 90%. Weakness: Most likely secondary to worsening of chronic anemia along with congestive heart failure end-stage renal disease on hemodialysis Appreciate iron panel, vitamin B12, folate level, TSH. Start on oral iron therapy. Acute on chronic anemia: Baseline hemoglobin seems to be from 8.9-10. Trending down to 7.1. Most recent EGD in last 3 months showed reflux esophagitis without any active signs of bleeding. Colonoscopy in 2019 is reported normal. Stool occult blood pending. Transfuse 1 unit of PRBC with target hemoglobin of more than 8. Continue with Protonix 40 mg twice daily. If patient's hemoglobin remained stable posttransfusion can plan to discharge home with advice for outpatient endoscopy. If hemoglobin trending down will need to possibly transfer for more urgent EGD and colonoscopy as no surgical services available for next 1 week. Discussed in detail with patient and patient's family and they are agreeable. Discontinue DAPT. Stop Plavix and continue aspirin. Hypertension: Goal blood pressure less than 140/90 mmHg. Continue with home dose of amlodipine, losartan, metoprolol. Will uptitrate as for goal blood pressures. History of CAD: Denies any active chest pain. Depending on regional wall motion modality on echocardiogram we will plan for stress test. Continue with home dose of aspirin, statin. Appreciate A1c, lipid panel. CODE STATUS: Discussed in detail with the patient and patient's family at bedside. Full code. Renal diet. Protonix for PUD prophylaxis Heparin for DVT prophylaxis. Discharge planning: Plan to discharge home with caregiver within next 24 to 48 hours if hemoglobin remains stable with advice for outpatient EGD and colonoscopy Attestations Medical Necessity Statement*: Requires further hospitalization for management of acute on chronic anemia leading to shortness of breath in setting of diastolic congestive heart failure and end-stage renal disease on hemodialysis Diagnoses Hypoxia R09.02 Acute on chronic diastolic CHF (congestive heart failure) I50.33 ESRD on hemodialysis N18.6; Z99.2 Chronic anemia D64.9 Coronary artery disease I25.10 Associated angina: without angina Coronary Disease-Associated Artery/Lesion type: three affiliated artery [place] vs. transplanted heart: three affiliated heart History of permanent cardiac pacemaker placement Z95.0 Essential hypertension I10 Hemodialysis access site with arteriovenous graft Z99.2
--- NOTE | 2022-05-14 13:48 | USCV_ITS ---
Galina Saba Age: 87 Gender: F : 1935 Exam Date: 05/14/2022 02:34 Ordering Phys: Anthony Jack MD Technologist: BANDAR Exam Location: [facility] – [place] Indication: AORTIC STENOSIS BP: 161 / 58 HR: 72 Rhythm: Sinus Technical Quality: Adequate MEASUREMENTS (Male / Female) Normal Values 2D ECHO LV Diastolic Diameter PLAX 3.9 cm 4.2 - 5.9 / 3.9 - 5.3 cm LV Systolic Diameter PLAX 2.6 cm IVS Diastolic Thickness 1.6 cm 0.6 - 1.0 / 0.6 - 0.9 cm IVS Systolic Thickness 2.1 cm LVPW Diastolic Thickness 1.7 cm 0.6 - 1.0 / 0.6 - 0.9 cm LVPW Systolic Thickness 1.7 cm LVOT Diameter 1.4 cm LV Ejection Fraction 2D Teich 64.0 % LV Ejection Fraction MOD 2C 67.8 % LV Ejection Fraction 2C AL 67.2 % LA Diameter 4.0 cm LA Width 5.1 cm LA Height 5.8 cm RA Width 3.4 cm RA Height 4.0 cm Aorta at Sinotubular Diameter 2.0 cm IVC Diameter 1.9 cm M-MODE Aortic Annulus Diameter 2.3 cm LA Ao Ratio MM 2.1 MV E Point Septal Separation 0.8 cm DOPPLER AV Peak Velocity 270.3 cm/s LVOT Peak Velocity 124.0 cm/s AV Area Cont Eq vti 0.8 cm squared AV Area Cont Eq pk 0.7 cm squared MV Area PHT 2.4 cm squared Mitral E to A Ratio 0.9 MV E' Velocity 78.0 cm/s Mitral E to MV E' Ratio 28.2 Mitral E to LV E' Lateral Ratio 26.7 Mitral E to LV E' Septal Ratio 29.9 TR Peak Velocity 305.0 cm/s TR Peak Gradient 37.2 mmHg TV Peak E Velocity 63.0 cm/s Right Atrial Pressure 10.0 mmHg Pulmonary Artery Systolic Pressu 47.2 mmHg PV Peak Velocity 125.0 cm/s RV Acceleration Time 0.1 s RV Ejection Time 0.4 s RV AcT/ET 0.2 FINDINGS Left Ventricle Mild left ventricular hypertrophy. Normal left ventricular size and systolic function, EF 63 %. No regional wall motion abnormalities. Grade II/IV diastolic dysfunction, moderately elevated filling pressures. Right Ventricle Normal right ventricular size and systolic function. Catheter/pacemaker wire in the right ventricular cavity. Right Atrium Normal right atrial size. Catheter/pacemaker wire in the right atrial cavity. Left Atrium Moderately increased left atrial size. Mitral Valve Thickened mitral valve. Moderate mitral annular calcification. Aortic Valve Thickened aortic valve. Severe low gradient aortic valve stenosis with a peak velocity of 2.72 m/s with a peak gradient of 30 mmHg and a mean gradient of 14 mmHg. The valve area was calculated to be 0.78 cm squared. Tricuspid Valve [id number] tricuspid valve regurgitation. Mild pulmonary hypertension with an estimated pulmonary artery peak systolic pressure of 47 mmHg Pulmonic Valve Mild pulmonary valve regurgitation. Pericardium No pericardial effusion. Aorta Normal aortic annulus size. IVC Normal inferior vena cava. CONCLUSIONS Normal left ventricular size and systolic function, EF 63 %. No regional wall motion abnormalities. Grade II/IV diastolic dysfunction, moderately elevated filling pressures. Mild left-ventricular hypertrophy Moderately increased left atrial size. Thickened mitral valve. Moderate mitral annular calcification. Severe low gradient aortic valve stenosis with a peak velocity of 2.72 m/s with a peak gradient of 30 mmHg and a mean gradient of 14 mmHg. The valve area was calculated to be 0.78 cm squared. Thickened mitral valve. Moderate mitral annular calcification. [id number] tricuspid valve regurgitation. Mild pulmonary hypertension with an estimated pulmonary artery peak systolic pressure of 47 mmHg Normal inferior vena cava. No similar previous studies are available for comparison Dr Alessandro Carney MD [facility] (Electronically Signed) Final Date: 14 May 2022 19:18 S
[2022-05-14] MEDS: FUROsemide 10 mg/mL SDV 4mL 40 MG IVP (14:31)
[2022-05-14 16:51] LABS: Hemoglobin 9.6 g/dL (11.5-15.3)
[2022-05-14 16:58] LABS: Glucose Point of Care 122 mg/dL (70-110)
[2022-05-14] MEDS: ropinirole 0.25 mg Tablet PO (17:39)
--- NOTE | 2022-05-14 18:31 | P.PN_ITS ---
Subjective Subjective: no new complaints Medications: Reviewed: Yes Vitals/I&O/Wt Last Vital Signs Temp 98.2 F 05/14/22 16:00 Pulse 75 05/14/22 16:00 Resp 14 05/14/22 16:00 BP 160/68 05/14/22 16:00 Pulse Ox 99 05/14/22 16:00 O2 Del Method 05/14/22 16:00 O2 Flow Rate 2.5 05/14/22 16:00 05/14/22 05/14/22 05/14/22 06:59 14:59 22:59 Intake Total 620 / 860 590 / 590 Output Total 2895 / 2895 Balance -2275 / -2035 590 / 590 Weight last 48 hrs Weight 51.846 kg Weight 110 kg Weight 51.075 kg Weight 48.534 kg Physical Exam Narrative: Patient is awake alert, no acute distress Hard of hearing Clear to auscultation per report No pedal edema Data 05/14/22 16:07 05/14/22 05:27 Micro: Microbiology 05/14/22 10:10 Gram Stain - Final Sputum - Expectorated Sputum 05/13/22 21:55 MRSA Culture - Final Nose 05/13/22 13:35 Legionella Urinary Antigen - Final Unknown Source 05/13/22 13:35 Bacterial Antigens - Final Urine Kidney 05/13/22 22:06 Blood Culture - Preliminary Blood SPECIMEN COLLECTED 05/13/22 22:05 Blood Culture - Preliminary Blood SPECIMEN COLLECTED A&P Assessment and plan (1) End stage renal disease: Plan End-stage renal disease: On HD per [facility] schedule as outpatient, patient presented with volume overload. Missed hemodialysis yesterday and underwent HD last night . next HD tomorrow Acute on chronic respiratory failure: Multifactorial secondary to CHF and history of COPD. Hypertension: Restart home medications Chronic anemia: Continue to monitor CORA with hemoglobin of 10 Patient evaluated using audiovisual cart. Time spent 45 minutes Attestations Medical Necessity Statement*: Requires further hospitalization for management of acute on chronic anemia leading to shortness of breath in setting of diastolic congestive heart failure and end-stage renal disease on hemodialysis Coding Level of Care Code Acute Code for Chg Fwd Diagnoses End stage renal disease N18.6
--- NOTE | 2022-05-14 19:29 | PC.NURSE ---
Bedside report completed with FRED Aponte.
[2022-05-14] MEDS: atorvastatin 40 mg Tablet PO (20:45)
[2022-05-14] MEDS: ALPRAZolam 0.5 mg Tablet 0.25 MG PO (20:45)
[2022-05-14] MEDS: amlodipine 10 mg Tablet PO (20:45)
--- NOTE | 2022-05-14 20:54 | PC.NURSE ---
Patient refusing stool softners at this time.
--- NOTE | 2022-05-15 00:10 | PC.NURSE ---
Patient c/o pain to right shoulder. Patient states that she uses a Lidocaine patch at home for this. Patient offered PRN Tylenol. Patient stating that she wants a Lidocaine patch. Dr. Kevin notified.
[2022-05-15] MEDS: lidocaine 5% Patch 1 PATCH TOPICAL (00:24)
[2022-05-15] MEDS: FUROsemide 10 mg/mL SDV 4mL 40 MG IVP (03:25)
[2022-05-15 03:58] VITALS: BP 146/54; PULSE 73; RESP 15; TEMP 36.4; O2SAT 96
--- NOTE | 2022-05-15 04:37 | PC.NURSE ---
Hat placed in toilet in accurate output measurement. Patient educated on this and verbalized understanding.
[2022-05-15 05:20] LABS: Basophils # 0.1 10^3/uL (0.0-0.1); Basophils % 0.9 %; Eosinophils # 0.2 10^3/uL (0.0-0.8); Eosinophils % 3.3 %; Hematocrit 26.5 % (37.0-47.0); Hemoglobin 8.2 g/dL (11.5-15.3); Lymphocytes % 16.7 %; Mean Corpuscular HGB Conc 30.9 g/dL (30.0-36.0); Mean Corpuscular Hemoglobin 29.9 pg (28.0-34.0); Mean Corpuscular Volume 96.7 fl (81-99); Mean Platelet Volume 10.1 fL (7.4-10.4); Monocytes # 0.9 10^3/uL (0.2-0.9); Neutrophils # 3.62 10^3/uL (1.8-7.7); Neutrophils % 63.7 %; Nucleated Red Blood Cells % 0 %; Platelet Count 234 10^3/cmm (130-400); Red Blood Count 2.74 10^6/uL (4.1-5.3); Red Cell Distribution Width 19.8 % (12.1-15.1); White Blood Count 5.7 10^3/uL (4.0-10.0)
[2022-05-15 05:41] LABS: Alanine Aminotransferase 10 U/L (0-33); Albumin Level 3.1 g/dL (3.5-5.2); Alkaline Phosphatase 67 U/L (35-105); Aspartate Amino Transferase 15 U/L (0-32); Blood Urea Nitrogen 30 mg/dL (8-23); Calcium 8.5 mg/dL (8.5-10.5); Carbon Dioxide 31 mmol/L (22-29); Chloride 99 mmol/L (98-107); Globulin 2.7 g/dL (1.3-4.6); Glucose 129 mg/dL (65-115); Osmolality Calculated 302 mOsm/kg (285-295); Sodium 142 mmol/L (136-145); Total Bilirubin 0.4 mg/dL (0.15-1.2); Total Protein 5.8 g/dL (6.6-8.7)
[2022-05-15 08:18] VITALS: BP 139/55; PULSE 82; RESP 16; TEMP 36.4
--- NOTE | 2022-05-15 08:19 | PC.HD ---
Patient's HD treatment initiated at 07:51. 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 Review Scheduling Coordinator has been notified; awaiting further instructions.
--- NOTE | 2022-05-15 09:47 | P.DS_ITS ---
Discharge Providers Date of Admission: 05/13/22 16:10 Date of Discharge: May 15, 2022 Attending Provider at Admission: Anthony Jack MD Attending Provider at Discharge: Anthony Jack MD Primary Care Provider: Magdiel Amador MD Diagnoses at Discharge Discharge Diagnosis (1) End stage renal disease: Status: Acute (2) Acute on chronic diastolic CHF (congestive heart failure): Status: Acute (3) Respiratory distress: Status: Acute (4) Chronic anemia: Status: Acute (5) ESRD on hemodialysis: Status: Acute (6) Hiatal hernia: Status: Acute (7) Gastritis: Status: Acute (8) COPD (chronic obstructive pulmonary disease): Status: Acute Reason for Visit Reason for Visit: WEAKNESS/ DIALYSIS PT Hospital Course Hospital Course Galina Saba is a 87 year old female with past medical history of incisional disease on hemodialysis, anemia secondary to GI loss, COPD on supplemental oxygen of 2 L at home, CAD post PCI 3 years ago, post pacemaker implantation presents to the ER today because of worsening difficulty in breathing gradually over the last 3 weeks along with weakness and tiredness.? Patient states around 3 weeks ago she was diagnosed with possible pneumonia and started on oral antibiotics for few days by her primary care provider which she took for around 4 to 5 days after which her fevers went away but has been having worsening difficulty in breathing since then.? At baseline as per the patient and her family she is fairly active but has been getting weaker over the last 3 weeks.? Today she was supposed to go for dialysis but was not able to heads family brought her to the ER.? Patient herself denies any nausea, vomiting, headache.? States shortness of breath gets worse prior to sleeping when she lies down and associated with bouts of cough with mild expectoration more than her baseline.? Denies any chest pain.? Complains of swelling in her left arm. Blood work in the ER showed a white blood cell count, hemoglobin of 8.3 which seems to her baseline, sodium 139, potassium of 3.9, creatinine of 4.7 with BUN of 39, baseline troponin of 83 with a 2-hour delta of -6, proBNP of more than 32,000, UA negative for any signs of infection. Was under the hospital further evaluation and management of ongoing weakness and shortness of breath. During hospitalization she underwent extra session of dialysis. On admission there were concerns for acute on chronic diastolic heart failure. Patient was also found to be anemic. Stool for occult blood was negative. Patient received monitor blood transfusion. Echocardiogram was done which showed EF of 63% with grade 2 diastolic dysfunction, moderate LVH and moderately increased LA size and severe low gradient aortic stenosis with peak velocity of 2.72, mild to moderate TR with mild pulmonary hypertension with PASP of 47 mmHg. Pacemaker check was done prior to discharge. It is believed patient's symptoms are most likely in setting of chronic anemia in setting of CKD along with worsening of aortic stenosis. Etiology were discussed in detail with patient's family and was advised for a possible TAVR after follow-up with cardiology. Family verbalized understanding. Patient has been discharged in hemodynamically stable condition Physical Exam Narrative: EXAM NARRATIVE: General: No acute distress, AO x3, NC oxygen supplementation, pallor present HEENT: PERRLA, pupils bilaterally equal and reactive Chest:Bronchial breath sounds b/l ,decreased air entry, equal good air entry b ilaterally, no more fine basal crackles CVS: S1-S2 regular, soft ejection systolic murmur at aortic area to carotids 2/6, no tachycardia, no gallops, no rubs Abdomen: Soft, nontender, no organomegaly, bowel sounds present, morbidly obese Neuro: No focal deficits, no facial deformity, AO x3, power 5/5 in all limbs Left arm: Slightly swollen more than right arm. AV fistula present, thrill present. Discharge Data Studies Completed and Pending Completed Studies During Hospitalization Category Date Time Status CTA chest [CT angio chest PE protcl [id number]] Stat Cat Scan 05/13/22 13:44 Completed XR chest 1V portable [id number] Urgent Exams 05/13/22 11:06 Completed CV. echo complete* [id number] Stat Ultrasound 05/14/22 13:48 Completed US venous duplex upper extremity LT [CV venous duplex Ultrasound 05/13/22 11:06 [place] [id number]] Stat Pending at discharge Category Date Time Status Blood Culture Stat Lab 05/13/22 22:06 Results Occult Blood Stool [Immunochemical Fecal OCB] Routine Lab 05/13/22 18:42 Uncollected Sputum Culture and Gram Stain Stat Lab 05/14/22 10:10 Results Radiology Impressions Chest X-Ray 05/13/22 11:06 Impression: Early interstitial edema Atherosclerosis and permanent pacemaker. Chest CTA 05/13/22 13:44 IMPRESSION: 1. Negative for pulmonary embolus. 2. Multiple enlarged mediastinal lymph nodes measuring up to 18 mm, nonspecific. 3. Cardiomegaly. 4. Coronary artery atherosclerotic calcifications. 5. Pacemaker. 6. Cholecystectomy. 7. Moderate bilateral pleural effusions. 8. Patchy bilateral dependent airspace infiltrates with bilateral ground-glass airspace opacity suggestive of alveolar edema. Echocardiogram: CONCLUSIONS ?Normal left ventricular size and systolic function, EF 63 %. ?No regional wall motion abnormalities. Grade II/IV diastolic ?dysfunction, moderately elevated filling pressures. ?Mild left-ventricular hypertrophy ?Moderately increased left atrial size. ?Thickened mitral valve. Moderate mitral annular calcification. ? Severe low gradient aortic valve stenosis with a peak velocity ?of 2.72 m/s with a peak gradient of 30 mmHg and a mean gradient ?of 14 mmHg.? The valve area was calculated to be 0.78 cm squared. ?Thickened mitral valve. Moderate mitral annular calcification. ?[id number] tricuspid valve regurgitation.? Mild pulmonary ?hypertension with an estimated pulmonary artery peak systolic ?pressure of 47 mmHg ?Normal inferior vena cava. ?No similar previous studies are available for comparison ?Dr Alessandro Carney MD [facility] ?(Electronically Signed) ?Final Date:? ? ? 14 May 2022 ? 19:18 S Laboratory Results WBC 5.7 10^3/uL (4.0-10.0) 05/15/22 04:40 RBC 2.74 10^6/uL (4.1-5.3) L 05/15/22 04:40 Hgb 8.2 g/dL (11.5-15.3) L 05/15/22 04:40 Hct 26.5 % (37.0-47.0) L 05/15/22 04:40 MCV 96.7 fl (81-99) D 05/15/22 04:40 MCH 29.9 pg (28.0-34.0) 05/15/22 04:40 MCHC 30.9 g/dL (30.0-36.0) 05/15/22 04:40 RDW 19.8 % (12.1-15.1) H 05/15/22 04:40 Plt Count 234 10^3/cmm (130-400) 05/15/22 04:40 MPV 10.1 fL (7.4-10.4) 05/15/22 04:40 Neut % (Auto) 63.7 % 05/15/22 04:40 Lymph % (Auto) 16.7 % 05/15/22 04:40 [place] % (Auto) 15.0 % 05/15/22 04:40 Eos % (Auto) 3.3 % 05/15/22 04:40 Baso % (Auto) 0.9 % 05/15/22 04:40 Neut # (Auto) 3.62 10^3/uL (1.8-7.7) 05/15/22 04:40 Lymph # (Auto) 1.0 10^3/uL (0.8-4.8) 05/15/22 04:40 [place] # (Auto) 0.9 10^3/uL (0.2-0.9) 05/15/22 04:40 Eos # (Auto) 0.2 10^3/uL (0.0-0.8) 05/15/22 04:40 Baso # (Auto) 0.1 10^3/uL (0.0-0.1) 05/15/22 04:40 Nucleated RBC % (auto) 0 % 05/15/22 04:40 Nucleated RBCs # 0.0 /100WBC 05/15/22 04:40 Sodium 142 mmol/L (136-145) 05/15/22 04:40 Potassium 4.0 mmol/L (3.5-5.1) 05/15/22 04:40 Chloride 99 mmol/L (98-107) 05/15/22 04:40 Carbon Dioxide 31 mmol/L (22-29) H 05/15/22 04:40 Anion Gap 16.0 (5-19) 05/15/22 04:40 BUN 30 mg/dL (8-23) H 05/15/22 04:40 Creatinine 4.2 mg/dL (0.5-0.9) H 05/15/22 04:40 GFR Calculation Not Reportable 05/15/22 04:40 Glucose 129 mg/dL (65-115) H 05/15/22 04:40 POC Glucose 122 mg/dL (70-110) H 05/14/22 16:53 Estimat Average Glucose 91 05/14/22 05:27 Hemoglobin A1c 4.8 % (4.0-6.0) 05/14/22 05:27 Calculated Osmolality 302 mOsm/kg (285-295) H 05/15/22 04:40 Calcium 8.5 mg/dL (8.5-10.5) 05/15/22 04:40 Phosphorus 3.5 mg/dL (2.5-4.5) 05/14/22 05:27 Magnesium 1.9 mg/dL (1.7-2.3) 05/14/22 05:27 Iron 36 ug/dL (37-145) L 05/13/22 13:50 TIBC 195 mcg/dl 05/13/22 13:50 % Saturation 18.4 % (20-50) L 05/13/22 13:50 Unsat Iron Binding 159 ug/dL (112-347) 05/13/22 13:50 Total Bilirubin 0.4 mg/dL (0.15-1.2) 05/15/22 04:40 AST 15 U/L (0-32) 05/15/22 04:40 ALT 10 U/L (0-33) 05/15/22 04:40 Alkaline Phosphatase 67 U/L (35-105) 05/15/22 04:40 Troponin T Baseline 83 ng/L (0-10) H 05/13/22 11:30 Troponin T 120 Minute 76.54 ng/L (0-10) H 05/13/22 13:50 Delta Troponin T -6.46 ABS# (0-10) L 05/13/22 13:50 Troponin T Hi Sens 6Hr 79.33 ng/L (0-10) H 05/13/22 22:05 Troponin T Hi Sens 6Hr Delta -3.67 ng/L (0-12) L 05/13/22 22:05 NT-Pro-B Natriuret Pep 74401 pg/mL (0-450) H 05/13/22 11:30 Total Protein 5.8 g/dL (6.6-8.7) L 05/15/22 04:40 Albumin 3.1 g/dL (3.5-5.2) L 05/15/22 04:40 Globulin 2.7 g/dL (1.3-4.6) 05/15/22 04:40 Triglycerides 122 mg/dL (0-150) 05/14/22 05:27 Cholesterol 125 mg/dL (0-200) 05/14/22 05:27 LDL Cholesterol, Calc 37 mg/dL (50-129) L 05/14/22 05:27 Total VLDL Cholesterol 24 mg/dL (0-30) 05/14/22 05:27 HDL Cholesterol 64 mg/dL (60-100) 05/14/22 05:27 Cholesterol/HDL Ratio 1.95 mg/dL (0.0-4.40) 05/14/22 05:27 Vitamin B12 1110 pg/mL (232-1245) 05/13/22 13:50 Folate > 20.0 ng/mL (4.8-37.3) 05/13/22 18:08 Procalcitonin 0.19 ng/mL (0-0.5) 05/13/22 13:50 TSH 3.10 uIU/mL (0.27-4.20) 05/13/22 11:30 Urine Color Yellow (Yellow) 05/13/22 13:35 Urine Appearance Clear (CLEAR) 05/13/22 13:35 Urine pH 9 (5-7) H 05/13/22 13:35 Ur Specific Larue 1.010 (1.005-1.030) 05/13/22 13:35 Urine Protein 1+ (Negative) H 05/13/22 13:35 Urine Glucose (UA) Norm (Normal) 05/13/22 13:35 Urine Ketones Negative (Negative) 05/13/22 13:35 Urine Blood Neg (Negative) 05/13/22 13:35 Urine Nitrate Negative (Negative) 05/13/22 13:35 Urine Bilirubin Neg (Negative) 05/13/22 13:35 Prot Sulfosalicylic Acd Positive (Negative) 05/13/22 13:35 Urine Urobilinogen Neg mg/dL (Negative) 05/13/22 13:35 Ur Leukocyte Esterase Negative (Negative) 05/13/22 13:35 Urine RBC None /hpf (0-2) 05/13/22 13:35 Urine WBC 0-4 /hpf (0-5) H 05/13/22 13:35 Ur Squamous Epith Cells 0-4 /hpf (0-5) H 05/13/22 13:35 Amorphous Sediment Not Reportable 05/13/22 13:35 Urine Bacteria None /hpf (NONE) 05/13/22 13:35 Nasal Influ A H1 2009 PCR Not detected (NOT DETECT) 05/13/22 14:14 Adenovirus (PCR) Not detected (NOT DETECT) 05/13/22 14:14 C. pneumoniae DNA (PCR) Not detected (NOT DETECT) 05/13/22 14:14 Coronavirus 229E (PCR) Not detected (NOT DETECT) 05/13/22 14:14 Hepatitis A IgM Ab Non-reactive (Nonreactive) 05/13/22 22:05 Hep Bs Antigen Non-reactive (Nonreactive) 05/13/22 22:05 Hep Bs Antibody 23.7 (11.5-1000) 05/13/22 22:05 Hep B Core Total Ab Non-reactive (Nonreactive) 05/13/22 22:05 Hepatitis C Antibody Non-reactive (Nonreactive) 05/13/22 22:05 Human Metapneumovir PCR Not detected (NOT DETECT) 05/13/22 14:14 Influenza A (H1) PCR Not detected (NOT DETECT) 05/13/22 14:14 Influenza A (H3) PCR Not detected (NOT DETECT) 05/13/22 14:14 Influenza Type A (PCR) Not detected (NOT DETECT) 05/13/22 14:14 Influenza Type B (PCR) Not detected (NOT DETECT) 05/13/22 14:14 M. pneumoniae (PCR) Not detected (NOT DETECT) 05/13/22 14:14 Parainfluenza 1 (PCR) Not detected (NOT DETECT) 05/13/22 14:14 Parainfluenza 2 (PCR) Not detected (NOT DETECT) 05/13/22 14:14 Parainfluenza 3 (PCR) Not detected (NOT DETECT) 05/13/22 14:14 Parainfluenza 4 (PCR) Not detected (NOT DETECT) 05/13/22 14:14 RSV Type A (PCR) Not detected (NOT DETECT) 05/13/22 14:14 RSV Type B (PCR) Not detected (NOT DETECT) 05/13/22 14:14 Entero/Rhino (PCR) Not detected (NOT DETECT) 05/13/22 14:14 SARS-CoV-2 (PCR) Not detected (NOT DETECT) 05/13/22 14:14 Blood Type A Positive 05/14/22 09:09 Rho(D) Type Positive 05/14/22 09:09 Antibody Screen Negative 05/14/22 09:09 Crossmatch See Detail 05/14/22 09:09 Vitals Last Vital Signs Temp 97.5 F L 05/15/22 08:18 Pulse 82 05/15/22 08:18 Resp 16 05/15/22 08:18 BP 139/55 05/15/22 08:18 Pulse Ox 96 05/15/22 03:58 O2 Del Method 05/15/22 03:58 O2 Flow Rate 2 05/15/22 03:58 Discharge Plan Discharge Patient Disposition: Home Condition: Stable Prescriptions: New docusate sodium 100 mg Capsule 100 mg PO BID Qty: 60 0RF ferrous gluconate 324 mg (37.5 mg iron) Tablet 324 mg PO BIDWM Qty: 60 0RF Continued alprazolam 0.25 mg tablet 0.25 mg PO BEDTIME Tradjenta 5 mg tablet 5 mg PO DAILY furosemide 40 mg tablet 40 mg PO DAILY acetaminophen [Tylenol Extra Strength] 500 mg Tablet 500 - 1,000 mg PO PRN PRN (Reason: pain) calcium carbonate [Tums] 200 mg calcium (500 mg) Tablet,Chewable 200 mg PO BID PRN (Reason: Heartburn) RenaPlex-D 800 mcg-12.5 mg -2,000 unit tablet 1 tab PO QPM cholecalciferol (vitamin D3) [Vitamin D3] 50 mcg (2,000 unit) Tablet 50 mcg PO DAILY atorvastatin 40 mg Tablet 40 mg PO BEDTIME nitroglycerin [Nitrostat] 0.4 mg Tablet, Sublingual 0.4 mg SUBLINGUAL Q5M PRN (Reason: Chest Pain) aspirin 81 mg Tablet 81 mg PO DAILY Hold Instructions: Resume on 10/23/21. ropinirole 0.25 mg Tablet 0.25 mg PO DAILY PRN (Reason: restless legs) C,E,zinc,copper [id number] 250-5-1 mg Capsule 1 cap PO DAILY fluticasone propionate 50 mcg/actuation Jackson,Suspension 1 spray INTRANASAL DAILY Rx Instructions: administer into each nostril losartan 50 mg tablet 50 mg PO DAILY cyanocobalamin (vitamin B-12) [Vitamin B-12] 1,000 mcg Tablet 1,000 mcg PO DAILY Rx Instructions: ON ,,SAT, AND FRI amlodipine 10 mg tablet 10 mg PO BEDTIME omeprazole 40 mg capsule,delayed release(DR/EC) 40 mg PO BID Changed metoprolol succinate 25 mg Tablet Extended Release 24 Hr 25 mg PO DAILY Qty: 30 0RF Discontinued clopidogrel [Plavix] 75 mg Tablet 75 mg PO DAILY Hold Instructions: Resume on 10/24/21. Discharge Orders: Discharge Order (Routine); Ordered 05/15/22 Ordered By: Anthony Jack Referrals: Gale Macias FNP [Nurse Practitioner] - 05/21/22 9:30 am (Referral for Tavr ) Magdiel Amador MD [Primary Care Provider] - 05/28/22 8:20 am Discharge Diet: Usual diet and As Directed Discharge Activity: Resume usual activity and Increase activity as tolerated Patient Instructions: Anemia, Iron Supplements (By mouth), Heart Failure (ED), CHF Stoplight, Opioid Safety, Pain Management Activity Restrictions/Additional Instructions: Please follow-up with cardiology onsite appointment for further work-up and possible referral for TAVR Discharge Attestations Time Spent in Discharge Care*: greater than 30 min Specific Discharge Activities: educating patient, educating and/or supporting family/caregiver, discussing with pcp/other providers, discussing with top case assembler/social workers/dc planners, documenting/other paperwork and evaluating patient/reviewing data Status at Discharge: Cognitive status at discharge: cognitively intact , Behavioral status at discharge: cooperative , Functional status at discharge: independent ambulation , Overall status at discharge: patient is progressing back to baseline Quality Metrics Clinical Quality Measures [ No reported AMI, CVA or VTE this stay] Coding Level of Care Code 02722 Total time (in minutes) for Discharge: 50 Diagnoses End stage renal disease N18.6 Acute on chronic diastolic CHF (congestive heart failure) I50.33 Respiratory distress R06.03 Chronic anemia D64.9 ESRD on hemodialysis N18.6; Z99.2 Hiatal hernia K44.9 Gastritis K29.70 COPD (chronic obstructive pulmonary disease) J44.9
--- NOTE | 2022-05-15 10:25 | P.PN_ITS ---
Subjective Subjective: getting HD Medications: Reviewed: Yes Vitals/I&O/Wt Last Vital Signs Temp 97.5 F L 05/15/22 08:18 Pulse 82 05/15/22 08:18 Resp 16 05/15/22 08:18 BP 139/55 05/15/22 08:18 Pulse Ox 96 05/15/22 03:58 O2 Del Method 05/15/22 03:58 O2 Flow Rate 2 05/15/22 03:58 05/14/22 05/15/22 05/15/22 22:59 06:59 14:59 Intake Total 0 / 0 Balance 0 / 0 Weight last 48 hrs Weight 48.58 kg Weight 51.846 kg Weight 110 kg Weight 51.075 kg Weight 48.534 kg Physical Exam Narrative: Patient is awake alert, no acute distress Hard of hearing Clear to auscultation per report No pedal edema Data 05/15/22 04:40 05/15/22 04:40 Micro: Microbiology 05/13/22 22:05 Blood Culture - Preliminary Blood NEGATIVE TO DATE 05/13/22 22:06 Blood Culture - Preliminary Blood NEGATIVE TO DATE 05/14/22 10:48 Occult Blood (FIT) - Final Stool Routine Collection 05/14/22 10:10 Gram Stain - Final Sputum - Expectorated Sputum 05/13/22 21:55 MRSA Culture - Final Nose 05/13/22 13:35 Legionella Urinary Antigen - Final Unknown Source 05/13/22 13:35 Bacterial Antigens - Final Urine Kidney A&P Assessment and plan (1) End stage renal disease: Plan End-stage renal disease: On HD per [facility] schedule as outpatient, patient presented with volume overload. HD today Acute on chronic respiratory failure: Multifactorial secondary to CHF and history of COPD. Hypertension: Restart home medications Chronic anemia: Continue to monitor CORA with hemoglobin of 10 Patient evaluated using audiovisual cart. Time spent 45 minutes Attestations Medical Necessity Statement*: Requires further hospitalization for management of acute on chronic anemia leading to shortness of breath in setting of diastolic congestive heart failure and end-stage renal disease on hemodialysis Coding Level of Care Code Acute Code for Chg Fwd Diagnoses End stage renal disease N18.6
[2022-05-15 10:47] VITALS: BP 143/48; PULSE 62; RESP 16; TEMP 36.5
[2022-05-15] MEDS: ferrous gluconate 324 mg Tablet PO (10:47)
[2022-05-15] MEDS: cyanocobalamin 1,000 mcg Tablet 1000 MCG PO (10:47)
[2022-05-15] MEDS: pantoprazole DR 40 mg Tablet PO (10:47)
[2022-05-15 11:36] VITALS: BP 144/55; PULSE 63; RESP 18; TEMP 36.7; O2SAT 97
[2022-05-15 13:40] LABS: Hematocrit 29.4 % (37.0-47.0); Hemoglobin 9.2 g/dL (11.5-15.3)
== END 2022-05-15 16:11 | disposition home or self-care (01) ==
LOC: ER 13:51 → MEDSURG 16:25
PROVIDERS: Internal Medicine; Admitting Provider Student in an Organized Health Care Education/Training Program; Emergency Provider Physician Assistant; PCP Family Medicine; Visit Provider Student in an Organized Health Care Education/Training Program
DX: E11.22 Type 2 diabetes mellitus with diabetic chronic kidney disease (principal); I13.0 Hypertensive heart and chronic kidney disease with heart failure and stage 1 through stage 4 chronic kidney disease, or unspecified chronic kidney disease; N18.6 End stage renal disease; I50.33 Acute on chronic diastolic (congestive) heart failure; D63.1 Anemia in chronic kidney disease; Z99.2 Dependence on renal dialysis; R06.03 Acute respiratory distress; K44.9 Diaphragmatic hernia without obstruction or gangrene; K29.70 Gastritis, unspecified, without bleeding; J44.9 Chronic obstructive pulmonary disease, unspecified; Z99.81 Dependence on supplemental oxygen; Z95.0 Presence of cardiac pacemaker; I25.10 Atherosclerotic heart disease of native coronary artery without angina pectoris; R60.0 Localized edema; Z79.82 Long term (current) use of aspirin; Z87.891 Personal history of nicotine dependence
CPT/HCPCS: 12345; 36415; 36416; 36430; 71045; 71275; 80053; 80061; 81001; 82274; 82607; 82746; 82962; 83036; 83540; 83550; 83735; 83880; 84100; 84145; 84443; 84484; 85014; 85018; 85025; 86403; 86705; 86706; 86709; 86803; 86850; 86900; 86920; 87040; 87070; 87205; 87340; 87449; 87486; 87581; 87633; 87641; 90935; 93005; 93306; 93971; 96372; 99285; G0378; J1644; J1940; P9016; Q3014; Q9967

== ENCOUNTER → 2022-05-21 09:16 | Outpatient (BNVA) | payer MEDICARE, MEDICAID, SELFPAY | PROVIDERS: PCP Family Medicine; Visit Provider Nurse Practitioner Family | DX: I35.0 Nonrheumatic aortic (valve) stenosis (principal) | CPT/HCPCS: 99213 ==

== ENCOUNTER → 2022-06-13 11:55 | Outpatient (BNVA) | payer MEDICARE, MEDICAID, SELFPAY | PROVIDERS: PCP Family Medicine; Visit Provider Internal Medicine Cardiovascular Disease | DX: I35.0 Nonrheumatic aortic (valve) stenosis (principal); I13.2 Hypertensive heart and chronic kidney disease with heart failure and with stage 5 chronic kidney disease, or end stage renal disease; I50.33 Acute on chronic diastolic (congestive) heart failure; Z99.2 Dependence on renal dialysis; N18.6 End stage renal disease; E11.22 Type 2 diabetes mellitus with diabetic chronic kidney disease; Z79.84 Long term (current) use of oral hypoglycemic drugs; D64.9 Anemia, unspecified; J44.9 Chronic obstructive pulmonary disease, unspecified; J84.9 Interstitial pulmonary disease, unspecified; I65.29 Occlusion and stenosis of unspecified carotid artery; I25.10 Atherosclerotic heart disease of native coronary artery without angina pectoris; I48.0 Paroxysmal atrial fibrillation; Z95.0 Presence of cardiac pacemaker; Z87.891 Personal history of nicotine dependence; Z79.82 Long term (current) use of aspirin | CPT/HCPCS: 99215 ==

== ENCOUNTER 2022-06-27 05:46 | Outpatient (CLI) | payer MEDICARE, MEDICAID, SELFPAY ==
[2022-06-27] VITALS (21 sets, daily range): BP systolic 130–176; BP diastolic 35–76; PULSE 60–72; RESP 10–30; TEMP 36.6; O2SAT 88–100; BMI 20.9
--- NOTE | 2022-06-27 | XACV_ITS ---
Exam Room: 2 Ht: 155 cm Wt: 50 kg BSA: 1.47 m2 Gender: Female : 1935 Any Known Allergies: Other Exam Priority: Routine Procedure(s): Procedure Description: Diagnostic procedure Procedure Description: Coronary Angiography NABEEL Orquidea; Diagnostic Cath Status: Elective Diagnostic Findings * 87-year-old female being worked up for a TAVR. Angiography performed today in anticipation of this. * Coronary angiography reveals right coronary artery dominance. The left main coronary artery is normal. This bifurcates into the LAD and circumflex. The LAD contains mild diffuse disease. There is a 30 to 40% stenosis at the takeoff of the third diagonal branch. First diagonal branch is very proximal near the takeoff of the circumflex. There is a 90% stenosis in the ostium. Second diagonal branch is in the proximal portion. There is a 40% ostial stenosis. The third diagonal branch is mid to distal vessel. There is a 80% ostial stenosis of the third diagonal branch. The circumflex is essentially normal aside from diffuse luminal irregularities. There is a 70% proximal stenosis of the first obtuse marginal branch. The right coronary artery is the dominant vessel. There are stents in the proximal and mid vessel which are patent. There is a 30% distal stenosis. There is a small branch of the posterior descending artery which is small and diffuse and contains a 90% diffuse stenosis in the proximal portion.. Conclusions 1. Disease of the 3 marginal branches as mentioned. No significant disease of the LAD, circumflex and right coronary arteries otherwise. Patent stents of the right coronary artery. Dual-chamber pacemaker. Recommendations * Provided information for TAVR work-up. Interventional RX Recommendation: other cardiac therapy w/o CABG/PCI Diagnostic RX Recommendation: other cardiac therapy w/o CABG/PCI Anticoagulation: Heparin Pressures Phase:Rest AO : 111 / 49 ( 76 ) @ 8:17:00 AM 139 / 46 ( 76 ) @ 8:21:00 AM Clinical Evaluation EBL: 5mL-10mL Procedural Details Procedure Consent Obtained. Admit Source: Out Patient. Pre-Procedure Time Out. Identified patient by full name and date of as verbalized by the patient/guarantor. Does the consent match the physician's order: Yes. Accurate & Complete Informed Consent: Yes. Inpatient/Outpatient History & Physical on Chart: Yes. If H&P is completed, is and addenduem needed: No; If yes, is the addendum complete: N/A. Visualize and Verify Site with Patient/Guarantor: N/A. Relevant Radiology Images available: N/A. The risks, benefits, and alternatives of sedation and/or procedure were discussed by physician. The patient agrees to continue. Procedure started. [facility] Clinical Fraility Score: 7: Severely Frail. Wellness Program Manager Indications: Worsening Angina. Chest Pain Symptom Assessment: Typical Angina Symptoms. Correct patient, site and procedure confirmed by cath team. Current diagnosis: Chest Pain. PERRLA. Strong, equal hand architectural modeler bilaterally. Lungs clear x 5 lobes. IV Site on Arrival: 22 gauge in the right hand. IV Fluids: 0.9% NaCl at 75ml/hr. 0 mL infused prior to pit laborer. Pre Procedural Pulses: bilateral dorsalis pedis was 3+. Pre Procedural Pulses: right posterior tibial was 2+. Pre Procedural Pulses: left posterior tibial was 1+. Pre Procedural Pulses: bilateral radial was 2+. Oxygen started at 3liters/min via nasal canula. right groin was prepped with chloroprep then draped in the usual sterile fashion. right radial was prepped with chloroprep then draped in the usual sterile fashion. Physician notified. Baseline sample Acquired. HR: 62 BPM. Physician arrived. Physician scrubbed in. Immediate Pre-Procedure Time Out. Correct Patient: Yes; Correct Procedure: Yes; Correct Site: Yes; Correct Patient Position: Yes; Correct Supplies: Yes; Dried Flammable Prep: Yes; Blood Products Available: N/A;. Lidocaine 1% infiltrated to the right radial. Arterial access obtained. A 5 danish TIG catheter in over wire. Multiple views taken of left coronary artery. Catheter removed over the exchange wire. A 5 danish JR4 catheter in over wire. Catheter removed over the exchange wire. Post Procedure: Pulses reassessed and unchanged. PERRLA. Strong, equal hand architectural modeler bilaterally. No VTE prophylaxis required. Medication's Wasted: Nitro = 49.8 mg. Medication's Wasted: Heparin = 1000 unit. Medication's Wasted: Other = Versed 3 mg. Medication's Wasted: Other = Fentanyl 50 mcg. Total IV fluids: 22 mL. Post-op diagnosis: Non- obstructive CAD. Complications: None. Estimated blood loss: 5mL-10mL. Responsiveness - Normal response to verbal stimuli; alert and oriented, PERRLA. Airway - Unaffected, no intervention required; spontaneous ventilation. Circulation: W/N/L, pulses unchanged. Nausea/Vomiting: No. A TR Band was successful obtaining hemostatsis at the Right Radial artery insertion site. Procedure completed. Patient transferred by stretcher to CPRU. Vital chart was stopped. Access Site Site: Right Radial artery Sheath Size: 5 Fr Hemostasis Method: TR Band Hemostasis Success: Successful Procedure Medications Start: 7:08 AM Stop: 7:08 AM Medication: Versed 1 mg and Fentanyl 25 mcg Route: I.V. Start: 7:10 AM Stop: 7:10 AM Medication: Fentanyl Amount: 25 mcg Route: I.V. Start: 7:12 AM Stop: 7:12 AM Medication: Nitrogylcerin Amount: 200 mcg Route: I.A. Start: 7:15 AM Stop: 7:15 AM Medication: Heparin Amount: 5000 units Route: I.V. I, the attending physician, have reviewed and verified all procedure medications. Yes, all medications given per verbal order History/Risk Factors Hypertension: Yes Dyslipidemia: Yes Myocardial Infarction (DC): Yes Renal Disease: Yes Tobacco Use: Former Dialysis: Current Prior Interventions PCI: Yes CABG: No Date of PCI: 09/21/2019 Report Signatures Finalized by Dr. Bill Heard MD on 06/27/2022 08:30 AM
[2022-06-27] MEDS: diphenhydrAMINE 50 mg Capsule PO (06:40)
--- NOTE | 2022-06-27 06:41 | W.PM.OPSUD ---
Surgery/Procedure H&P Update DATE OF PROCEDURE: June 27, 2022 DATE H&P PERFORMED: 06/13/22 H&P UPDATE INFORMATION: I have reviewed H&P completed within last 30 days, I have examined patient prior to procedure, No changes to prior documentation and H&P is in [facility] EMR on date indicated CHANGES TO PREVIOUS DOCUMENTATION: None PREOP DIAGNOSIS: Aortic stenosis PRIMARY INDICATION FOR PROCEDURE: pre TAVR angio PLANNED PROCEDURE: Operation Date: 06/27/22 07:00 Proposed Procedures p [facility] w /w/o 08702,I35.0(Left) - Bill Heard MD
[2022-06-27 06:45] LABS: Basophils # 0.1 10^3/uL (0.0-0.1); Basophils % 0.8 %; Eosinophils # 0.2 10^3/uL (0.0-0.8); Eosinophils % 2.3 %; Hematocrit 38.8 % (37.0-47.0); Hemoglobin 11.2 g/dL (11.5-15.3); Lymphocytes # 1.4 10^3/uL (0.8-4.8); Lymphocytes % 16.9 %; Mean Corpuscular HGB Conc 28.9 g/dL (30.0-36.0); Mean Corpuscular Hemoglobin 29.6 pg (28.0-34.0); Mean Corpuscular Volume 102.4 fl (81-99); Mean Platelet Volume 10.2 fL (7.4-10.4); Monocytes % 11.1 %; Neutrophils # 5.87 10^3/uL (1.8-7.7); Neutrophils % 68.8 %; Nucleated Red Blood Cells % 0 %; Platelet Count 260 10^3/cmm (130-400); Red Blood Count 3.79 10^6/uL (4.1-5.3); Red Cell Distribution Width 15.9 % (12.1-15.1); White Blood Count 8.5 10^3/uL (4.0-10.0)
[2022-06-27 07:10] LABS: Anion Gap 15.1 (5-19); Blood Urea Nitrogen 25 mg/dL (8-23); Carbon Dioxide 34 mmol/L (22-29); Chloride 94 mmol/L (98-107); Glucose 124 mg/dL (65-115); Osmolality Calculated 294 mOsm/kg (285-295); Potassium 4.1 mmol/L (3.5-5.1); Sodium 139 mmol/L (136-145)
--- NOTE | 2022-06-27 08:49 | P.DS_ITS ---
Discharge Providers Date of Admission: 06/27/2022 Date of Discharge: June 27, 2022 Attending Provider at Admission: yasmin Attending Provider at Discharge: Bill Heard MD Primary Care Provider: Magdiel Amador MD Reason for Visit Reason for Visit: I35.0 Brief History: Patient was sent to me in the office recently as a follow-up in Dr. Reyes's absence. She has a number of underlying illnesses including diabetes and end- stage renal disease and is on dialysis. Recent echo was read by Dr. Carney as severe aortic stenosis. She was sent to me for purposes of coronary angiography in anticipation of a TAVR. Patient is a very spry 87-year-old woman despite her underlying medical problems and would like to be considered for a TAVR. Hospital Course Hospital Course Angiography was performed from the right radial artery. She has stents previously placed in the right coronary artery which are patent. There is a small distal branch of the posterior descending artery on the right which has severe diffuse stenosis. All 3 diagonals have lesions in the ostia. The LAD and circumflex are largely normal. The remainder of the right coronary artery is normal. There is a 70% first obtuse marginal stenosis. The procedure was uncomplicated. Physical Exam Narrative: GENERAL: In general she looks and feels well HEENT: Exam within normal limits. NECK: Supple without jugular vein distention. The carotid upstroke is normal without bruits. BACK: Exam normal. LUNGS: Clear. HEART: Regular rate and rhythm. ABDOMEN: Benign without organomegaly or tenderness. EXTREMITIES: No edema. At the time of discharge there is no bleeding, hematoma or other vascular anomalies in the right arm. NEUROLOGIC: Exam normal. SKIN: Unremarkable. Discharge Data Studies Completed and Pending Laboratory Results WBC 8.5 10^3/uL (4.0-10.0) 06/27/22 06:30 RBC 3.79 10^6/uL (4.1-5.3) L 06/27/22 06:30 Hgb 11.2 g/dL (11.5-15.3) L 06/27/22 06:30 Hct 38.8 % (37.0-47.0) 06/27/22 06:30 MCV 102.4 fl (81-99) H 06/27/22 06:30 MCH 29.6 pg (28.0-34.0) 06/27/22 06:30 MCHC 28.9 g/dL (30.0-36.0) L 06/27/22 06:30 RDW 15.9 % (12.1-15.1) H 06/27/22 06:30 Plt Count 260 10^3/cmm (130-400) 06/27/22 06:30 MPV 10.2 fL (7.4-10.4) 06/27/22 06:30 Neut % (Auto) 68.8 % 06/27/22 06:30 Lymph % (Auto) 16.9 % 06/27/22 06:30 [place] % (Auto) 11.1 % 06/27/22 06:30 Eos % (Auto) 2.3 % 06/27/22 06:30 Baso % (Auto) 0.8 % 06/27/22 06:30 Neut # (Auto) 5.87 10^3/uL (1.8-7.7) 06/27/22 06:30 Lymph # (Auto) 1.4 10^3/uL (0.8-4.8) 06/27/22 06:30 [place] # (Auto) 1.0 10^3/uL (0.2-0.9) H 06/27/22 06:30 Eos # (Auto) 0.2 10^3/uL (0.0-0.8) 06/27/22 06:30 Baso # (Auto) 0.1 10^3/uL (0.0-0.1) 06/27/22 06:30 Nucleated RBC % (auto) 0 % 06/27/22 06:30 Nucleated RBCs # 0.0 /100WBC 06/27/22 06:30 Sodium 139 mmol/L (136-145) 06/27/22 06:30 Potassium 4.1 mmol/L (3.5-5.1) 06/27/22 06:30 Chloride 94 mmol/L (98-107) L 06/27/22 06:30 Carbon Dioxide 34 mmol/L (22-29) H 06/27/22 06:30 Anion Gap 15.1 (5-19) 06/27/22 06:30 BUN 25 mg/dL (8-23) H 06/27/22 06:30 Creatinine 3.7 mg/dL (0.5-0.9) H 06/27/22 06:30 GFR Calculation Not Reportable 06/27/22 06:30 Glucose 124 mg/dL (65-115) H 06/27/22 06:30 Calculated Osmolality 294 mOsm/kg (285-295) 06/27/22 06:30 Calcium 9.0 mg/dL (8.5-10.5) 06/27/22 06:30 Procedures Performed Coronary angiography Vitals Last Vital Signs Temp 97.8 F 06/27/22 06:00 Pulse 60 06/27/22 07:45 Resp 16 06/27/22 07:45 BP 150/52 06/27/22 07:45 Pulse Ox 90 06/27/22 07:45 O2 Del Method Nasal Cannula 06/27/22 07:45 O2 Flow Rate 3 06/27/22 07:45 Discharge Plan Discharge Patient Disposition: Home Prescriptions: No Action alprazolam 0.25 mg tablet 0.25 mg PO BEDTIME Tradjenta 5 mg tablet 5 mg PO DAILY acetaminophen [Tylenol Extra Strength] 500 mg Tablet 500 - 1,000 mg PO PRN PRN (Reason: pain) calcium carbonate [Tums] 200 mg calcium (500 mg) Tablet,Chewable 200 mg PO BID PRN (Reason: Heartburn) RenaPlex-D 800 mcg-12.5 mg -2,000 unit tablet 1 tab PO QPM cholecalciferol (vitamin D3) [Vitamin D3] 50 mcg (2,000 unit) Tablet 50 mcg PO DAILY atorvastatin 40 mg Tablet 40 mg PO BEDTIME nitroglycerin [Nitrostat] 0.4 mg Tablet, Sublingual 0.4 mg SUBLINGUAL Q5M PRN (Reason: Chest Pain) aspirin 81 mg Tablet 81 mg PO DAILY Hold Instructions: Resume on 10/23/21. ropinirole 0.25 mg Tablet 0.25 mg PO DAILY PRN (Reason: restless legs) ferrous gluconate 324 mg (37.5 mg iron) Tablet 324 mg PO BIDWM Qty: 60 0RF metoprolol succinate 25 mg Tablet Extended Release 24 Hr 25 mg PO DAILY Qty: 30 0RF C,E,zinc,copper [id number] 250-5-1 mg Capsule 1 cap PO DAILY fluticasone propionate 50 mcg/actuation [place],Suspension 1 spray INTRANASAL DAILY Rx Instructions: administer into each nostril losartan 50 mg tablet 50 mg PO DAILY cyanocobalamin (vitamin B-12) [Vitamin B-12] 1,000 mcg Tablet 1,000 mcg PO DAILY Rx Instructions: ON ,,FRI, AND SUN amlodipine 10 mg tablet 10 mg PO BEDTIME omeprazole 40 mg capsule,delayed release(DR/EC) 40 mg PO BID Discharge Orders: Discharge Order (Routine); Ordered 06/27/22 Ordered By: Bill Heard Referrals: Gale Macias FNP [Nurse Practitioner] - 7-10 days (Check right radial artery site. Patient is on dialysis so no creatinine needed.) Diet: Usual diet Activity: Increase activity as tolerated and Limit activity as instructed Activity Restrictions/Additional Instructions: No lifting over 5 pounds for 2 days with the right arm. Discharge Attestations Time Spent in Discharge Care*: less than 30 min Status at Discharge: Cognitive status at discharge: cognitively intact , Behavioral status at discharge: cooperative , Quality Metrics Clinical Quality Measures [ No reported AMI, CVA or VTE this stay] Coding Level of Care Code 25870 Total time (in minutes) for Discharge: 25 Diagnoses
--- NOTE | 2022-06-27 10:10 | PC.NURSE ---
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 pt alert and oriented and complains of no pain. pt has TR band on right wrist with palpable distal pulse. pt placed on monitor and will be monitored per to protocol. nurse educated pt and family at bedside regarding restrictions of right wrist with verbalized understanding.
--- NOTE | 2022-06-27 10:16 | PC.NURSE ---
aroudn 850 failed release of air in TR band. band re-inflated with the plan to try again in a hr.
--- NOTE | 2022-06-27 12:21 | PC.NURSE ---
around 1115 pt had a successful TR band removal. Pt and family again educated on restrictions of right wrist, all verbalizing understanding.
== END 2022-06-27 12:27 | disposition home or self-care (01) ==
PROVIDERS: PCP Family Medicine; Visit Provider Internal Medicine Cardiovascular Disease
DX: I35.0 Nonrheumatic aortic (valve) stenosis (principal); I25.10 Atherosclerotic heart disease of native coronary artery without angina pectoris; Z95.5 Presence of coronary angioplasty implant and graft; Z79.82 Long term (current) use of aspirin; E78.5 Hyperlipidemia, unspecified; I13.11 Hypertensive heart and chronic kidney disease without heart failure, with stage 5 chronic kidney disease, or end stage renal disease; I50.33 Acute on chronic diastolic (congestive) heart failure; E11.22 Type 2 diabetes mellitus with diabetic chronic kidney disease; N18.6 End stage renal disease; Z99.2 Dependence on renal dialysis; Z87.891 Personal history of nicotine dependence; J44.9 Chronic obstructive pulmonary disease, unspecified; I48.91 Unspecified atrial fibrillation; D63.1 Anemia in chronic kidney disease
CPT/HCPCS: 36415; 80048; 85025; 93454; 96361; 96365; 99152; 99153; C1769; C1887; C1894; J1644; J2250; J3010; J3490; J7030; Q0163; Q9967

== ENCOUNTER → 2022-07-09 10:00 | Outpatient (BNVA) | payer MEDICARE, MEDICAID, SELFPAY | PROVIDERS: PCP Family Medicine; Visit Provider Nurse Practitioner Family | DX: I35.0 Nonrheumatic aortic (valve) stenosis (principal); I25.10 Atherosclerotic heart disease of native coronary artery without angina pectoris; I13.2 Hypertensive heart and chronic kidney disease with heart failure and with stage 5 chronic kidney disease, or end stage renal disease; E11.22 Type 2 diabetes mellitus with diabetic chronic kidney disease; N18.6 End stage renal disease; I50.30 Unspecified diastolic (congestive) heart failure; Z99.2 Dependence on renal dialysis; Z87.891 Personal history of nicotine dependence; Z79.84 Long term (current) use of oral hypoglycemic drugs | CPT/HCPCS: 99214 ==

== ENCOUNTER → 2022-11-05 11:25 | Outpatient (BNVA) | payer MEDICARE, MEDICAID, SELFPAY | PROVIDERS: PCP Family Medicine; Visit Provider Internal Medicine Cardiovascular Disease | DX: I35.0 Nonrheumatic aortic (valve) stenosis (principal); R06.03 Acute respiratory distress; J44.9 Chronic obstructive pulmonary disease, unspecified; J84.9 Interstitial pulmonary disease, unspecified; I25.10 Atherosclerotic heart disease of native coronary artery without angina pectoris; I65.29 Occlusion and stenosis of unspecified carotid artery; I48.0 Paroxysmal atrial fibrillation; Z95.0 Presence of cardiac pacemaker; D64.9 Anemia, unspecified; I13.2 Hypertensive heart and chronic kidney disease with heart failure and with stage 5 chronic kidney disease, or end stage renal disease; E11.22 Type 2 diabetes mellitus with diabetic chronic kidney disease; N18.6 End stage renal disease; I50.33 Acute on chronic diastolic (congestive) heart failure; Z99.2 Dependence on renal dialysis; Z87.891 Personal history of nicotine dependence; Z79.84 Long term (current) use of oral hypoglycemic drugs | CPT/HCPCS: 99214 ==

== ENCOUNTER 2022-11-11 13:01 | Emergency (ER) | payer MEDICARE, MEDICAID, SELFPAY ==
[2022-11-11 13:03] VITALS: BP 135/72; PULSE 62; RESP 18; TEMP 37.3; O2SAT 93; BMI 21.9
--- NOTE | 2022-11-11 13:03 | XR_ITS ---
WS: [id number] XR chest 1V portable [id number] REASON FOR EXAM: sob FINDINGS: Cardiac device over the left chest with left subclavian leads to the right atrium and right ventricul ar apex. The heart is mildly enlarged. Calcified granulomas disease bilaterally. There are reticular interstitial lung opacities in the lower lung and peripheral lung pride. While t he patient has chronic interstitial lung findings current lung opacities appear more prominent than t he presumed normal baseline studies of the past. Incidental note of previous rotator cuff tendon surgery on the right. Vascular stent overlying the le ft axillary region. IMPRESSION: Not definitive, however the examination suggests early congestive heart failure.
--- NOTE | 2022-11-11 13:17 | ECG_ITS ---
[facility] Test Date: 2022-11-11 Pat Name: Galina Saba Department: Room: Gender: Female Pairer Substandard: : 1935 Requested By: Brian Sanchez Order Number: [id number] Milad MD: Mireya Reyes M.D. Measurements Intervals [place] Rate: 63 P: 93 MO: 168 QRS: -61 QRSD: 185 T: 85 QT: 489 QTc: 501 Interpretive Statements ELECTRONIC ATRIAL PACEMAKER ELECTRONIC VENTRICULAR PACEMAKER ABNORMAL RHYTHM ECG Compared to ECG 05/13/2022 17:08:56 No significant changes Electronically Signed On 11-11-2022 21:25:02 CDT by Mireya Reyes M.D. [id number]
--- NOTE | 2022-11-11 13:17 | ED_ITS ---
HPI - SOB/Dyspnea General: Chief Complaint: Shortness of Breath/Dyspnea Stated Complaint: SOB Time Seen by Provider: 11/11/22 13:02 Source: patient and EMS Mode of arrival: EMS Limitations: no limitations History of Present Illness: HPI Narrative: 87-year-old female with a history of end-stage renal disease on dialysis Friday she also CHF COPD states she has chronic dyspnea she is on 3 L chronically states she had some slight increased shortness of breath the last 2 days per EMS she had some wheezing they gave her breathing treatment she states she feels much improved she is at her baseline here on oxygen. She denies any fever she does have a cough but states she has a chronic cough. Associated symptoms: Deny abdominal pain, chest pain, fever(s), nausea or vomiting Review of Systems Const: Denies: fever(s), chills, body aches or change in appetite ENMT: Denies: throat pain or dental pain Card: Denies: chest pain Resp: Reports: dyspnea, non-productive cough and wheezing GI: Denies: abdominal pain, nausea, vomiting or diarrhea Musc: Denies: neck pain or back pain Skin/Breast: Denies: rash Neuro: Denies: headache(s) PFSH ED PFSH: Medical History Anemia Carotid stenosis COPD (chronic obstructive pulmonary disease) Coronary artery disease 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 Diabetes Diastolic congestive heart failure End stage renal disease Essential hypertension GERD (gastroesophageal reflux disease) Intermittent atrial fibrillation Interstitial lung disease Severe aortic stenosis Third degree heart block Status post pacemaker placement Surgical History Hemodialysis access site with arteriovenous graft History of laparoscopic cholecystectomy History of tubal ligation S/P hemodialysis catheter insertion Status post colonoscopy (12/30/19) Family History Mother Cancer Lung cancer Father Diabetes Other CAD (coronary artery disease) Denies family history of Anesthesia complication Bleeding disorder Social History Smoking and tobacco status: former smoker Quit status (tobacco): has quit using tobacco Year quit tobacco: 1983 Former quit date comment: 2ppd x 19 years Alcohol intake: never Substance/Drug Use: never Physical Exam Const: COMMON NORMALS: patient oriented x3 HENMT: COMMON NORMALS: normocephalic and atraumatic HEAD & SCALP: normocephalic and atraumatic Neck/C-Spine: COMMON NORMALS: full ROM and supple Chest: COMMONS NORMALS: normal inspection of the chest and normal palpation of entire chest wall Resp: COMMON NORMALS: normal respiratory effort, No retractions and No use of accessory muscles AUSCULTATION: wheezes Cardio: COMMON NORMALS: regular rate, regular rhythm and No murmurs present (Cardio) RATE: regular rate RHYTHM: regular rhythm GI: COMMON NORMALS: Normal to inspection, nondistended, normoactive bowel sounds present, Soft to palpation, non-tender and no masses PALPATION: Yes Soft to palpation Extremity: COMMON NORMALS: normal to inspection and full ROM Neuro: COMMON NORMALS: patient oriented x3, moves all extremities and no focal motor deficits Psych: COMMON NORMALS: mental status grossly normal, Normal thought process present and cooperative THOUGHT PROCESS: Normal thought process present Skin: COMMON NORMALS: no rashes or lesions noted and no wounds GENERAL SKIN EXAM: no rashes or lesions noted Course Vital Signs: Vital signs: Vital Signs Temperature 99.1 F 11/11/22 13:03 Pulse Rate 74 11/11/22 16:51 Respiratory Rate 16 11/11/22 14:41 Blood Pressure 162/54 11/11/22 16:51 Pulse Oximetry 95 11/11/22 16:51 Oxygen Delivery Me thod Nasal Cannula 11/11/22 14:41 Oxygen Flow Rate 4 11/11/22 14:41 MDM - SOB/Dyspnea Medical Decision Making Patient presents here shortness of breath likely from her COPD she feels much improved after steroids and breathing treatment her pulse ox here has been 98% on her 3 L she has been in no distress she is stable for discharge I did inform her she needs to call the dialysis clinic tomorrow to see if they want to do her dialysis tomorrow or Friday she states she still makes urine and her dialysis only 2 and half hours I informed her she does need to call tomorrow she is return if she has worsening shortness of breath she understands agrees to plan. Lab Data 11/11/22 13:15 11/11/22 13:15 Labs/Radiology: Laboratory Results WBC 9.58 10^3/uL (3.29-11.43) 11/11/22 13:15 RBC 2.83 10^6/uL (3.85-5.65) L 11/11/22 13:15 Hgb 8.90 g/dL (11.27-16.99) L 11/11/22 13:15 Hct 28.4 % (36-47) L 11/11/22 13:15 MCV 100.4 fl (85-98) H 11/11/22 13:15 MCH 31.4 pg (27-33) 11/11/22 13:15 MCHC 31.3 g/dL (30-55) 11/11/22 13:15 RDW 14.6 % (12.1-15.1) 11/11/22 13:15 Plt Count 204 10^3/cmm (157-399) 11/11/22 13:15 MPV 11.4 fL (7.4-10.4) H 11/11/22 13:15 Neut % (Auto) 79.0 % 11/11/22 13:15 Lymph % (Auto) 11.2 % 11/11/22 13:15 [place] % (Auto) 7.2 % 11/11/22 13:15 Eos % (Auto) 1.8 % 11/11/22 13:15 Baso % (Auto) 0.5 % 11/11/22 13:15 Neut # (Auto) 7.57 10^3/uL (1.8-7.7) 11/11/22 13:15 Lymph # (Auto) 1.1 10^3/uL (0.8-4.8) 11/11/22 13:15 [place] # (Auto) 0.7 10^3/uL (0.2-0.9) 11/11/22 13:15 Eos # (Auto) 0.2 10^3/uL (0.0-0.8) 11/11/22 13:15 Baso # (Auto) 0.1 10^3/uL (0.0-0.1) 11/11/22 13:15 Nucleated RBC % (auto) 0 % 11/11/22 13:15 Nucleated RBCs # 0.0 /100WBC 11/11/22 13:15 Sodium 137 mmol/L (136-145) 11/11/22 13:15 Potassium 3.5 mmol/L (3.5-5.1) 11/11/22 13:15 Chloride 94 mmol/L (98-107) L 11/11/22 13:15 Carbon Dioxide 28 mmol/L (22-29) 11/11/22 13:15 Anion Gap 18.5 (5-19) 11/11/22 13:15 BUN 35 mg/dL (8-23) H 11/11/22 13:15 Creatinine 7.4 mg/dL (0.5-0.9) H* 11/11/22 13:15 GFR Calculation Not Reportable 11/11/22 13:15 Glucose 131 mg/dL (65-115) H 11/11/22 13:15 Calculated Osmolality 294 mOsm/kg (285-295) 11/11/22 13:15 Calcium 9.0 mg/dL (8.5-10.5) 11/11/22 13:15 Total Bilirubin 0.4 mg/dL (0.15-1.2) 11/11/22 13:15 AST 17 U/L (0-32) 11/11/22 13:15 ALT 9 U/L (0-33) 11/11/22 13:15 Alkaline Phosphatase 90 U/L (35-105) 11/11/22 13:15 Troponin T Baseline 72 ng/L (0-10) H 11/11/22 13:15 Troponin T 120 Minute 71.97 ng/L (0-10) H 11/11/22 15:20 Delta Troponin T -0.03 ABS# (0-10) L 11/11/22 15:20 NT-Pro-B Natriuret Pep 04565 pg/mL (0-450) H 11/11/22 13:15 Total Protein 6.8 g/dL (6.6-8.7) 11/11/22 13:15 Albumin 3.8 g/dL (3.5-5.2) 11/11/22 13:15 Globulin 3.0 g/dL (1.3-4.6) 11/11/22 13:15 SARS-CoV-2 Ag (Rapid) negative (Negative) 11/11/22 14:29 All radiology interpretation(s) finalized by discharge Discharge Plan Discharge Patient Disposition: Home Clinical Impression: Acute exacerbation of chronic obstructive airways disease, ESRD on hemodialysis Condition: Stable Prescriptions: No Action Tradjenta 5 mg tablet 5 mg PO QAM alprazolam 0.25 mg tablet 0.25 mg PO BEDTIME acetaminophen [Tylenol Extra Strength] 500 mg Tablet 500 - 1,000 mg PO Q6H PRN (Reason: Pain) calcium carbonate [Tums] 200 mg calcium (500 mg) Tablet,Chewable 200 mg PO BID PRN (Reason: Heartburn) RenaPlex-D 800 mcg-12.5 mg -2,000 unit tablet 1 tab PO QAM atorvastatin 40 mg Tablet 40 mg PO BEDTIME ropinirole 0.25 mg Tablet 0.25 mg PO BEDTIME C,E,zinc,copper [id number] 250-5-1 mg Capsule 1 cap PO QAM fluticasone propionate 50 mcg/actuation [place],Suspension 1 spray INTRANASAL DAILY PRN (Reason: Allergy Symptoms) Rx Instructions: administer into each nostril losartan 50 mg tablet 50 mg PO BID cyanocobalamin (vitamin B-12) [Vitamin B-12] 1,000 mcg Tablet 1,000 mcg PO QAM amlodipine 10 mg tablet 10 mg PO BEDTIME omeprazole 40 mg capsule,delayed release(DR/EC) 40 mg PO BID metoprolol succinate 50 mg tablet extended release 24 hr 25 mg PO BEDTIME Aspir-81 81 mg Tablet,Delayed Release (Dr/Ec) 81 mg PO BEDTIME Nitrostat 0.4 mg Tablet, Sublingual 0.4 mg SUBLINGUAL Q5M PRN (Reason: Chest Pain) Rx Instructions: do not exceed 3 doses per episode albuterol sulfate 90 mcg/actuation HFA aerosol inhaler 2 puff INHALATION Q4H PRN (Reason: Shortness Of Breath) Breztri Aerosphere 160-9-4.8 mcg/actuation HFA aerosol inhaler 2 inh INHALATION BID PRN (Reason: unknown) furosemide 40 mg tablet 40 mg PO QAM Discharge Orders: Discharge ED (Routine); Ordered 11/11/22 Ordered By: Brian Sanchez Referrals: Magdiel Amador MD [Primary Care Provider] - 1-3 days Discharge Diet: Advance as tolerated Discharge Activity: Resume usual activity Patient Instructions: COPD (Chronic Obstructive Pulmonary Disease) (ED) Coding Level of Care Code ED Assistant Professor Of Criminal Justice for Mireilleg Joshua
[2022-11-11 13:29] LABS: Basophils # 0.1 10^3/uL (0.0-0.1); Basophils % 0.5 %; Eosinophils # 0.2 10^3/uL (0.0-0.8); Eosinophils % 1.8 %; Hematocrit 28.4 % (36-47); Lymphocytes # 1.1 10^3/uL (0.8-4.8); Lymphocytes % 11.2 %; Mean Corpuscular HGB Conc 31.3 g/dL (30-55); Mean Corpuscular Hemoglobin 31.4 pg (27-33); Mean Corpuscular Volume 100.4 fl (85-98); Mean Platelet Volume 11.4 fL (7.4-10.4); Monocytes # 0.7 10^3/uL (0.2-0.9); Monocytes % 7.2 %; Neutrophils # 7.57 10^3/uL (1.8-7.7); Nucleated Red Blood Cells % 0 %; Platelet Count 204 10^3/cmm (157-399); Red Blood Count 2.83 10^6/uL (3.85-5.65); Red Cell Distribution Width 14.6 % (12.1-15.1); White Blood Count 9.58 10^3/uL (3.29-11.43)
[2022-11-11 13:53] LABS: Alanine Aminotransferase 9 U/L (0-33); Albumin Level 3.8 g/dL (3.5-5.2); Alkaline Phosphatase 90 U/L (35-105); Anion Gap 18.5 (5-19); Aspartate Amino Transferase 17 U/L (0-32); Blood Urea Nitrogen 35 mg/dL (8-23); Carbon Dioxide 28 mmol/L (22-29); Chloride 94 mmol/L (98-107); Glucose 131 mg/dL (65-115); NT Pro B Type Natriuretic Pept 28420 pg/mL (0-450); Osmolality Calculated 294 mOsm/kg (285-295); Potassium 3.5 mmol/L (3.5-5.1); Sodium 137 mmol/L (136-145); Total Bilirubin 0.4 mg/dL (0.15-1.2); Total Protein 6.8 g/dL (6.6-8.7)
[2022-11-11 14:41] VITALS: BP 145/52; PULSE 67; RESP 16; O2SAT 100
[2022-11-11 14:50] LABS: SARS Covid-2 Antigen negative (Negative)
--- NOTE | 2022-11-11 15:04 | ECG_ITS ---
[facility] Test Date: 2022-11-11 Pat Name: Galina Saba Department: Room: Gender: Female Mobile Developer: : 1935 Requested By: Brian Sanchez Order Number: [id number] Milad MD: Mireya Reyes M.D. Measurements Intervals [place] Rate: 71 P: -65 OR: 164 QRS: -66 QRSD: 155 T: 100 QT: 451 QTc: 492 Interpretive Statements A sense V paced rhythm with demand A pacing ELECTRONIC VENTRICULAR PACEMAKER ABNORMAL RHYTHM ECG Compared to ECG 11/11/2022 13:17:37 Atrial-paced complex(es) or rhythm no longer present Electronically Signed On 11-11-2022 21:15:05 CDT by Mireya Reyes M.D. [id number]
[2022-11-11 15:25] LABS: Troponin(5th) Baseline 72 ng/L (0-10)
[2022-11-11 16:03] LABS: Troponin 5 2HR 71.97 ng/L (0-10)
[2022-11-11 16:09] LABS: Troponin 5 2HR Delta -0.03 ABS# (0-10)
[2022-11-11] MEDS: dexamethasone 10 mg/mL INJ IVP (16:44)
[2022-11-11 16:51] VITALS: BP 162/54; PULSE 74; O2SAT 95
== END 2022-11-11 16:50 | disposition home or self-care (01) ==
PROVIDERS: Emergency Provider Emergency Medicine; PCP Family Medicine
DX: J44.1 Chronic obstructive pulmonary disease with (acute) exacerbation (principal); I13.2 Hypertensive heart and chronic kidney disease with heart failure and with stage 5 chronic kidney disease, or end stage renal disease; E11.22 Type 2 diabetes mellitus with diabetic chronic kidney disease; N18.6 End stage renal disease; I50.30 Unspecified diastolic (congestive) heart failure; Z99.2 Dependence on renal dialysis; I25.10 Atherosclerotic heart disease of native coronary artery without angina pectoris; Z87.891 Personal history of nicotine dependence; Z99.81 Dependence on supplemental oxygen; Z20.822 Contact with and (suspected) exposure to COVID-19
CPT/HCPCS: 36415; 71045; 80053; 83880; 84484; 85025; 87426; 93005; 96374; 99285; J1100

== ENCOUNTER 2022-12-04 11:56 | Inpatient (IN) | payer MEDICARE, MEDICAID, SELFPAY ==
[2022-12-04] VITALS (10 sets, daily range): BP systolic 113–145; BP diastolic 40–75; PULSE 61–71; RESP 16–22; TEMP 36.4–37; O2SAT 94–98; BMI 20.8
--- NOTE | 2022-12-04 12:10 | XRR_ITS ---
PROCEDURE INFORMATION: Exam: XR Chest Exam date and time: 12/04/2022 12:18 PM Age: 87 years old Clinical indication: Cough and dyspnea; Prior surgery; Surgery date: 6+ months; Surgery type: Pacer; Additional info: Dyspnea/cough TECHNIQUE: Imaging protocol: Radiologic exam of the chest. Views: 1 view. COMPARISON: CR XR chest 1V portable [id number] 11/11/2022 1:07 PM FINDINGS: Tubes, catheters and devices: There is stable intact pacemaker hardware. Lungs: Minimal infiltrate is suspected in the left lateral lung base. Pleural spaces: Unremarkable. No pleural effusion. No pneumothorax. Heart/Mediastinum: Unremarkable. No cardiomegaly. Vasculature: A vascular stent is again seen in the left axillary region. Bones/joints: Unremarkable. XR/XR chest 1V portable [id number] IMPRESSION: Minimal infiltrate is suspected in the left lateral lung base. Lung pride are otherwise clear.
--- NOTE | 2022-12-04 12:14 | ECG_ITS ---
[facility] Test Date: 2022-12-04 Pat Name: Galina Saba Department: Room: Gender: Female Social Sciences Lecturer: : 1935 Requested By: Jalen Soliman Order Number: [id number] Milad MD: Bill Heard M.D. Measurements Intervals [place] Rate: 70 P: 86 [place]: 181 QRS: -73 QRSD: 173 T: 88 QT: 499 QTc: 539 Interpretive Statements ELECTRONIC ATRIAL PACEMAKER ELECTRONIC VENTRICULAR PACEMAKER ABNORMAL RHYTHM ECG Compared to ECG 11/11/2022 15:11:36 No significant changes Electronically Signed On 12-04-2022 16:48:12 CDT by Bill Heard M.D. [email or web address] - [id number]
[2022-12-04] MEDS: ondansetron 2 mg/ML SDV 2 mL 4 MG IVP (12:44)
--- NOTE | 2022-12-04 12:59 | ED_ITS ---
HPI - Weakness General: Chief complaint: Weakness Stated complaint: weakness, ND Time Seen by Provider: 12/04/22 12:09 Source: patient Mode of arrival: ambulatory History of Present Illness: 87-year-old female presents emergency room with generalized weakness nausea and diarrhea. She also had several falls at home over the last 5 days. She has a history of end-stage renal disease on dialysis she missed the last 2 dialysis ru ns. She is short of breath with exertion but is not noticed any worsening orthopnea or swelling in her legs. No fever at home no recent antibiotics MD Complaint: generalized weakness Onset (ago): minute(s) Duration: constant Location: generalized Migration: none Relieving factors: none Exacerbating factors: none Associated symptoms: Reports chills, decreased appetite and nausea; Denies chest pain, confusion, melena, diaphoresis, easy bruising, fever(s), headache(s), myalgias, rash, short of breath, syncope, vomiting or other Review of Systems Const: Reports: chills; Denies: fever(s) or diaphoresis Card: Reports: dyspnea on exertion; Denies: chest pain or syncope Resp: Denies: dyspnea GI: Reports: nausea and diarrhea; Denies: abdominal pain, vomiting or melena Musc: Denies: neck pain or back pain Skin/Breast: Denies: rash Neuro: Denies: headache(s) or confusion Munir/Lymph: Denies: easy bruising PFSH ED PFSH: Medical History Anemia Carotid stenosis COPD (chronic obstructive pulmonary disease) Coronary artery disease 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 Diabetes Diastolic congestive heart failure End stage renal disease Essential hypertension GERD (gastroesophageal reflux disease) Intermittent atrial fibrillation Interstitial lung disease Severe aortic stenosis Third degree heart block Status post pacemaker placement Surgical History Hemodialysis access site with arteriovenous graft History of laparoscopic cholecystectomy History of tubal ligation S/P hemodialysis catheter insertion Status post colonoscopy (12/30/19) Family History Mother Cancer Lung cancer Father Diabetes Other CAD (coronary artery disease) Denies family history of Anesthesia complication Bleeding disorder Social History Smoking and tobacco/nicotine status: former use of tobacco/nicotine Quit status (tobacco/nicotine): has quit using Year quit tobacco: 1983 Former quit date comment: 2ppd x 19 years Alcohol intake: never Substance/Drug Use: never Physical Exam Const: COMMON NORMALS: no acute distress GENERAL APPEARANCE: cooperative and comfortable ORIENTATION/CONSCIOUSNESS: Yes awake, Yes oriented to person, Yes oriented to place and Yes oriented to time HENMT: COMMON NORMALS: normocephalic, atraumatic and hearing grossly normal bilaterally HEAD & SCALP: normocephalic and atraumatic Resp: COMMON NORMALS: normal respiratory effort, No retractions, No use of accessory muscles and clear to auscultation bilaterally AUSCULTATION: clear to auscultation bilaterally Cardio: COMMON NORMALS: regular rate, regular rhythm and No murmurs present (Cardio) RATE: regular rate RHYTHM: regular rhythm GI: COMMON NORMALS: Soft to palpation and No hepatosplenomegaly present AUSCULTATION: Yes normoactive bowel sounds PALPATION: Yes Soft to palpation, No Tenderness to palpation present (GI), No Guarding due to palpation present (GI) and Yes No hepatosplenomegaly present Extremity: COMMON NORMALS: normal to inspection, capillary refill normal, no clubbing, cyanosis or edema, no calf tenderness and no pedal edema Neuro: SENSORIUM/ORIENTATION: Yes oriented to person, Yes oriented to place and Yes oriented to time Skin: COMMON NORMALS: no rashes or lesions noted GENERAL SKIN EXAM: no rashes or lesions noted Course Vital Signs: Vital signs: Vital Signs Temperature 97.8 F 12/04/22 12:04 Pulse Rate 63 12/04/22 13:12 Respiratory Rate 19 H 12/04/22 13:12 Blood Pressure 135/40 12/04/22 13:12 Pulse Oximetry 94 12/04/22 13:12 Oxygen Delivery Me thod Nasal Cannula 12/04/22 13:12 Oxygen Flow Rate 3 12/04/22 13:12 MDM - Weakness Medical Decision Making Left lower lobe pneumonia chronic diarrhea end-stage renal disease missed last 2 dialysis runs. Will admit started on Levaquin discussed with hospitalist cha benitez nephrology Medical Records I reviewed the patient's medical records. Lab Data I reviewed the patient's lab results. 12/04/22 12:52 12/04/22 12:52 Radiology Impressions Chest X-Ray 12/04/22 12:10 IMPRESSION: Minimal infiltrate is suspected in the left lateral lung base. Lung pride are otherwise clear. Laboratory Results WBC 10.48 10^3/uL (3.29-11.43) 12/04/22 12:52 RBC 2.62 10^6/uL (3.85-5.65) L 12/04/22 12:52 Hgb 8.10 g/dL (11.27-16.99) L 12/04/22 12:52 Hct 25.9 % (36-47) L 12/04/22 12:52 MCV 98.9 fl (85-98) H 12/04/22 12:52 MCH 30.9 pg (27-33) 12/04/22 12:52 MCHC 31.3 g/dL (30-55) 12/04/22 12:52 RDW 16.8 % (12.1-15.1) H 12/04/22 12:52 Plt Count 240 10^3/cmm (157-399) 12/04/22 12:52 MPV 9.8 fL (7.4-10.4) 12/04/22 12:52 Neut % (Auto) 81.1 % 12/04/22 12:52 Lymph % (Auto) 8.1 % 12/04/22 12:52 [place] % (Auto) 8.4 % 12/04/22 12:52 Eos % (Auto) 1.6 % 12/04/22 12:52 Baso % (Auto) 0.4 % 12/04/22 12:52 Neut # (Auto) 8.50 10^3/uL (1.8-7.7) H 12/04/22 12:52 Lymph # (Auto) 0.9 10^3/uL (0.8-4.8) 12/04/22 12:52 [place] # (Auto) 0.9 10^3/uL (0.2-0.9) 12/04/22 12:52 Eos # (Auto) 0.2 10^3/uL (0.0-0.8) 12/04/22 12:52 Baso # (Auto) 0.0 10^3/uL (0.0-0.1) 12/04/22 12:52 Nucleated RBC % (auto) 0 % 12/04/22 12:52 Nucleated RBCs # 0.0 /100WBC 12/04/22 12:52 Sodium 139 mmol/L (136-145) 12/04/22 12:52 Potassium 3.4 mmol/L (3.5-5.1) L 12/04/22 12:52 Chloride 95 mmol/L (98-107) L 12/04/22 12:52 Carbon Dioxide 25 mmol/L (22-29) 12/04/22 12:52 Anion Gap 22.4 (5-19) H 12/04/22 12:52 BUN 60 mg/dL (8-23) H 12/04/22 12:52 Creatinine 9.8 mg/dL (0.5-0.9) H* 12/04/22 12:52 GFR Calculation Not Reportable 12/04/22 12:52 Glucose 102 mg/dL (65-115) 12/04/22 12:52 Calculated Osmolality 305 mOsm/kg (285-295) H 12/04/22 12:52 Calcium 7.4 mg/dL (8.5-10.5) L 12/04/22 12:52 Total Bilirubin 0.3 mg/dL (0.15-1.2) 12/04/22 12:52 AST 16 U/L (0-32) 12/04/22 12:52 ALT 11 U/L (0-33) 12/04/22 12:52 Alkaline Phosphatase 91 U/L (35-105) 12/04/22 12:52 Total Protein 6.3 g/dL (6.6-8.7) L 12/04/22 12:52 Albumin 3.5 g/dL (3.5-5.2) 12/04/22 12:52 Globulin 2.8 g/dL (1.3-4.6) 12/04/22 12:52 Lipase 13 U/L (13-60) 12/04/22 12:52 All radiology interpretation(s) finalized by discharge Discharge Plan Discharge Patient Disposition: Placed in Observation Clinical Impression: Left lower lobe pneumonia, End stage renal disease on dialysis Condition: Stable Prescriptions: No Action Tradjenta 5 mg tablet 5 mg PO QAM alprazolam 0.25 mg tablet 0.25 mg PO BEDTIME acetaminophen [Tylenol Extra Strength] 500 mg Tablet 500 - 1,000 mg PO Q6H PRN (Reason: Pain) calcium carbonate [Tums] 200 mg calcium (500 mg) Tablet,Chewable 200 mg PO DAILY PRN (Reason: Heartburn) RenaPlex-D 800 mcg-12.5 mg -2,000 unit tablet 1 tab PO QAM atorvastatin 40 mg Tablet 40 mg PO BEDTIME ropinirole 0.25 mg Tablet 0.25 mg PO BEDTIME C,E,zinc,copper [id number] 250-5-1 mg Capsule 1 cap PO QAM fluticasone propionate 50 mcg/actuation [place],Suspension 1 spray INTRANASAL DAILY PRN (Reason: Allergy Symptoms) Rx Instructions: administer into each nostril losartan 50 mg tablet 50 mg PO BID cyanocobalamin (vitamin B-12) [Vitamin B-12] 1,000 mcg Tablet 1,000 mcg PO QAM amlodipine 10 mg tablet 10 mg PO BEDTIME omeprazole 40 mg capsule,delayed release(DR/EC) 40 mg PO BID metoprolol succinate 50 mg tablet extended release 24 hr 25 mg PO BID aspirin [Aspir-81] 81 mg Tablet,Delayed Release (Dr/Ec) 81 mg PO BEDTIME nitroglycerin [Nitrostat] 0.4 mg Tablet, Sublingual 0.4 mg SUBLINGUAL Q5M PRN (Reason: Chest Pain) Rx Instructions: do not exceed 3 doses per episode albuterol sulfate 90 mcg/actuation HFA aerosol inhaler 2 puff INHALATION Q4H PRN (Reason: Shortness Of Breath) Breztri Aerosphere 160-9-4.8 mcg/actuation HFA aerosol inhaler 2 inh INHALATION BID PRN (Reason: unknown) furosemide 40 mg tablet 40 mg PO QAM Referrals: Magdiel Amador MD [Primary Care Provider] - Coding Level of Care Code ED Triage Nurse for Elizabeth Lewis
[2022-12-04 13:02] LABS: Basophils % 0.4 %; Eosinophils # 0.2 10^3/uL (0.0-0.8); Eosinophils % 1.6 %; Hematocrit 25.9 % (36-47); Lymphocytes # 0.9 10^3/uL (0.8-4.8); Lymphocytes % 8.1 %; Mean Corpuscular HGB Conc 31.3 g/dL (30-55); Mean Corpuscular Hemoglobin 30.9 pg (27-33); Mean Corpuscular Volume 98.9 fl (85-98); Mean Platelet Volume 9.8 fL (7.4-10.4); Monocytes # 0.9 10^3/uL (0.2-0.9); Monocytes % 8.4 %; Neutrophils % 81.1 %; Nucleated Red Blood Cells % 0 %; Platelet Count 240 10^3/cmm (157-399); Red Blood Count 2.62 10^6/uL (3.85-5.65); Red Cell Distribution Width 16.8 % (12.1-15.1); White Blood Count 10.48 10^3/uL (3.29-11.43)
[2022-12-04 13:22] LABS: Alanine Aminotransferase 11 U/L (0-33); Albumin Level 3.5 g/dL (3.5-5.2); Alkaline Phosphatase 91 U/L (35-105); Anion Gap 22.4 (5-19); Aspartate Amino Transferase 16 U/L (0-32); Blood Urea Nitrogen 60 mg/dL (8-23); Calcium 7.4 mg/dL (8.5-10.5); Carbon Dioxide 25 mmol/L (22-29); Chloride 95 mmol/L (98-107); Globulin 2.8 g/dL (1.3-4.6); Glucose 102 mg/dL (65-115); Lipase 13 U/L (13-60); Osmolality Calculated 305 mOsm/kg (285-295); Potassium 3.4 mmol/L (3.5-5.1); Sodium 139 mmol/L (136-145); Total Bilirubin 0.3 mg/dL (0.15-1.2); Total Protein 6.3 g/dL (6.6-8.7)
--- NOTE | 2022-12-04 13:59 | PM.HP ---
Providers/Chief Complaint Admitting Physician: Nino Hdz MD Primary Care Provider: Magdiel Amador MD Chief Complaint: weakness, ND History of Present Illness Galina aSba is a 87 year old female with a past medical history significant for ESRD on HD, coronary artery disease, COPD, congestive heart failure with preserved ejection fraction, hypertension, atrial fibrillation, aortic stenosis, interstitial lung disease and complete heart block status post pacemaker placement who presents to the emergency department with severe diarrhea. Patient reports symptoms began around Friday. She describes the diarrhea as diffuse and watery. She reports the diarrhea has been all day long. She endorses some slight nausea. She received Zofran in the emergency department with some improvement in the nausea. Denies overt abdominal pain or emesis. She reports very poor oral intake since Friday due to fear of diarrhea. She denies recent antibiotic use. Denies fever. She was on steroids not too long ago for her respiratory status. Patient's daughter is bedside and supportive. They live together. Daughter is also her DPOA. She notes that she has been severely weak. She typically uses a walker but she has become too weak to get up and ambulate even with a walker. She has had some falls. Denies any current pain from those falls. Patient has a history of end-stage renal disease on hemodialysis. She missed her dialysis sessions on Friday and today due to severe weakness. Daughter called their physician's office who recommended patient go to the emergency department for evaluation. Denies significant leg swelling although daughter notes her vision is very poor secondary to macular degeneration. In the ED, labs revealed stigmata of kidney disease as well as neutrophilia. Chest x-ray revealed minimal infiltrate suspected in the left lung base. Patient reports chronic cough she has a history of congestive heart failure as well as COPD. Review of Systems Narrative: A complete review of systems was obtained and is negative except as stated in HPI. Medications/Allergies Home Medications Medication Instructions Recorded Confirmed Last Taken Type linagliptin 5 mg tablet (Tradjenta) 5 mg PO QAM 04/15/19 12/04/22 12/03/22 History vit B,C-folic ac 800 mcg-zinc 12.5 1 tab PO QAM 06/16/19 12/04/22 12/03/22 History mg-selen-D3 2,000 unit-vit E tablet (RenaPlex-D) atorvastatin 40 mg tablet 40 mg PO BEDTIME 11/17/19 12/04/22 12/03/22 History acetaminophen 500 mg tablet 500 - 1,000 mg PO Q6H PRN Pain 07/31/20 12/04/22 06/26/22 18:00 History (Tylenol Extra Strength) calcium carbonate 200 mg calcium 200 mg PO DAILY PRN Heartburn 07/31/20 12/04/22 12/03/22 History (500 mg) chewable tablet (Tums) fluticasone propionate 50 1 spray intranasal DAILY PRN 07/30/21 12/04/22 12/03/22 History mcg/actuation nasal Allergy Symptoms spray,suspension vit C,E,zinc,copper-dhjhe0f 250 1 cap PO QAM 07/30/21 12/04/22 12/03/22 History mg-lutein 5 mg-zeaxanthin 1 mg capsule amlodipine 10 mg tablet 10 mg PO BEDTIME 10/11/21 12/04/22 12/03/22 History cyanocobalamin (vitamin B-12) 1,000 mcg PO QAM 10/11/21 12/04/22 12/03/22 History 1,000 mcg tablet (Vitamin B-12) omeprazole 40 mg capsule,delayed 40 mg PO BID 10/11/21 12/04/22 12/03/22 History release ropinirole 0.25 mg tablet 0.25 mg PO BEDTIME 05/13/22 12/04/22 12/03/22 History alprazolam 0.25 mg tablet 0.25 mg PO BEDTIME 07/09/22 12/04/22 12/03/22 History losartan 50 mg tablet 50 mg PO BID 07/09/22 12/04/22 12/03/22 History albuterol sulfate 90 mcg/actuation 2 puff inhalation Q4H PRN 11/11/22 12/04/22 Unknown History aerosol inhaler Shortness Of Breath aspirin 81 mg tablet,delayed 81 mg PO BEDTIME 11/11/22 12/04/22 12/03/22 History release budesonide 160 mcg-glycopyr 9 2 inh inhalation BID PRN unknown 11/11/22 12/04/22 Unknown History mcg-formot 4.8 mcg/actuation HFA inhaler (Breztri Aerosphere) furosemide 40 mg tablet 40 mg PO QAM 11/11/22 12/04/22 12/03/22 History metoprolol succinate 50 mg 25 mg PO BID 11/11/22 12/04/22 12/03/22 History tablet,extended release 24 hr nitroglycerin 0.4 mg sublingual 0.4 mg sublingual Q5M PRN Chest 11/11/22 12/04/22 Unknown History tablet (Nitrostat) Pain Allergies Allergy/AdvReac Type Severity Reaction Status Date / Time lisinopril Allergy Unknown Unknown Verified 12/04/22 12:07 morphine AdvReac Intermediate ADR-Nausea Verified 12/04/22 12:07 PFSH Acute PFSH: Medical History (Updated 12/04/22 @ 14:34 by Nino Hdz MD) Anemia Carotid stenosis COPD (chronic obstructive pulmonary disease) Coronary artery disease Cough Dark stools Diabetes Diastolic congestive heart failure Dysphagia End stage renal disease Esophageal dysmotility Essential hypertension Exertional dyspnea Gastritis GERD (gastroesophageal reflux disease) Hematochezia Hiatal hernia Intermittent atrial fibrillation Interstitial lung disease Recurrent aspiration events Severe aortic stenosis Third degree heart block Status post pacemaker placement Surgical History (Updated 12/04/22 @ 14:22 by Nino Hdz MD) Hemodialysis access site with arteriovenous graft History of laparoscopic cholecystectomy History of permanent cardiac pacemaker placement History of tubal ligation S/P hemodialysis catheter insertion Status post colonoscopy (12/30/19) Family History Mother Cancer Lung cancer Father Diabetes Other CAD (coronary artery disease) Denies family history of Anesthesia complication Bleeding disorder Social History Smoking and tobacco/nicotine status: former use of tobacco/nicotine Quit status (tobacco/nicotine): has quit using Year quit tobacco: 1983 Former quit date comment: 2ppd x 19 years Alcohol intake: never Substance/Drug Use: never Vitals/I&O/Wt Last Vital Signs Temp 97.8 F 12/04/22 12:04 Pulse 63 12/04/22 13:12 Resp 19 H 12/04/22 13:12 BP 135/40 12/04/22 13:12 Pulse Ox 94 12/04/22 13:12 O2 Del Method Nasal Cannula 12/04/22 13:12 O2 Flow Rate 3 12/04/22 13:12 Weight last 48 hrs Weight 51.71 kg Physical Exam Narrative: General: Patient is awake. Acutely ill appearing, but pleasant. Head: Normocephalic. Atraumatic. Arcus. Neck: No JVD. Cardiovascular: RRR. 3+ systolic ejection murmur. Trace pedal edema. Lungs: Breath sounds are diminished in bilateral bases. Faint dependent crackles. No overt rhonchi appreciated. Skin: No jaundice. No rashes. Abdomen: Normal bowel sounds, abdomen soft and nontender. Extremities: No cyanosis or clubbing. Musculoskeletal: No erythematous joints. Neurological: Moves all 4 extremities. No myoclonus. Data 12/04/22 12:52 12/04/22 12:52 A&P Assessment and plan (1) Diarrhea: Severe diarrhea since Friday Broad differential, bbtained CT CAP w/o to further evaluate Stool culture w/ Shiga toxin C. diff less likely w/o abx exposure, normal WBC, and benign abd exam Imodium if Shiga is negative Hold off on IVF given hx of ESRD w/ 2 missed HD sessions [place] diet as tolerated (2) Left lower lobe pneumonia: Questionable infiltrate, but endorses respiratory symptoms Legionella a/w PNA and diarrhea (although not hyponatremic), test for antigen Strep antigen CT scan to better characterize Hx of dysphagia and aspiration, may benefit from ST consult pending CT results Pulmonary toilet Inflammatory markers Sputum culture Start antibiotics (3) End stage renal disease on dialysis: 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, also w/ mild hypokalemia Missed 2 sessions d/t severe weakness Nephrology consultation for dialysis management Hold oral Lasix for now (4) Acute on chronic diastolic CHF (congestive heart failure): Acute on chronic HF w/ pEF exacerbation 2/2 missed HD Volume control w/ HD Continue beta bill Hold home Lasix (5) Generalized weakness: Debility and physical deconditioning secondary to acute illness Supportive care Treat underlying infection Therapy eval (6) COPD (chronic obstructive pulmonary disease): COPD and interstitial lung disease At risk for exacerbation, currently no wheezing on exam Continue nebulizing treatments (7) Anemia: Monitor hemoglobin counts Qualifiers: Anemia type: unspecified type Qualified Code(s): D64.9 - Anemia, unspecified (8) Coronary artery disease: Continue home statin Qualifiers: Associated angina: without angina Coronary Disease-Associated Artery/Lesion type: [place] artery [place] vs. transplanted heart: [place] heart Qualified Code(s): I25.10 - Atherosclerotic heart disease of [place] coronary artery without angina pectoris (9) Diabetes: Hold oral medications Sliding scale insulin correction Avoid hypoglycemia (10) Essential hypertension: Continue home Norvasc Continue home metoprolol Continue home losartan Plan DVT ppx: Heparin Attestations Medical Necessity Statement*: Patient presents with severe diarrhea and generalized weakness, found to have suspected pneumonia and possible abdominal infection with expected hospitalization not to cross two midnights for additional imaging, dialysis, stool studies, IV abx, antiemetics, therapy evaluation and supportive care. Coding Level of Care Code Acute Code for g Fwd Diagnoses Diarrhea R19.7 Left lower lobe pneumonia J18.9 End stage renal disease on dialysis N18.6; Z99.2 Acute on chronic diastolic CHF (congestive heart failure) I50.33 Generalized weakness R53.1 COPD (chronic obstructive pulmonary disease) J44.9 Anemia D64.9 Anemia type: unspecified type Coronary artery disease I25.10 Associated angina: without angina Coronary Disease-Associated Artery/Lesion type: [place] artery [place] vs. transplanted heart: [place] heart Diabetes E11.9 Essential hypertension I10
--- NOTE | 2022-12-04 14:52 | CTR_ITS ---
PROCEDURE INFORMATION: Exam: CT Chest Without Contrast; Diagnostic Exam date and time: 12/04/2022 4:07 PM Age: 87 years old Clinical indication: Other: Severe diarrhea; Shortness of breath; Prior surgery; Surgery date: 6+ months; Surgery type: Pacemaker, tubal; Additional info: Eval pneumonia and severe diarrhea TECHNIQUE: Imaging protocol: Diagnostic computed tomography of the chest without contrast. Radiation optimization: All CT scans at this facility use at least one of these dose optimization techniques: automated exposure control; mA and/or kV adjustment per patient size (includes targeted exams where dose is matched to clinical indication); or iterative reconstruction. REPORTING DATA: Count of CT and Cardiac NM exams in prior 12 months: This patient has received [address] and 0 known cardiac nuclear medicine studies in the 12 months prior to the current study. COMPARISON: CT angio chest PE protcl [id number] 05/13/2022 3:24 PM RADIATION DOSE METRICS: Total DLP (mGy-cm): 453 FINDINGS: Tubes, catheters and devices: Unchanged left pacemaker/AICD. Lungs: Unchanged bilateral bullous emphysema. Markedly improved bilateral pulmonary abnormality. The residual could be scarring or a small amount chronic or recurrent edema and/or pneumonitis Pleural spaces: Tiny left pleural effusion, markedly decreased in the interval. No right pleural effusion or pneumothorax. Heart: Unchanged mitral annular calcification. Coronary arteries: Unchanged moderate amount of coronary artery calcification. Lymph nodes: Unchanged mediastinal lymphadenopathy. Vasculature: Unchanged mildly dilated central pulmonary arteries. Unchanged moderate amount of systemic arterial calcification. Unchanged stent in the left axillary vein. Bones/joints: Mild and moderate thoracic spondylosis surgical material in the right humeral head otherwise, unremarkable. Soft tissues: Unremarkable. PROCEDURE INFORMATION: Exam: CT Abdomen And Pelvis Without Contrast Exam date and time: 12/04/2022 4:07 PM Age: 87 years old Clinical indication: Other: Severe diarrhea; Shortness of breath; Prior surgery; Surgery date: 6+ months; Surgery type: Pacemaker, tubal; Additional info: Eval pneumonia and severe diarrhea TECHNIQUE: Imaging protocol: Computed tomography of the abdomen and pelvis without contrast. Radiation optimization: All CT scans at this facility use at least one of these dose optimization techniques: automated exposure control; mA and/or kV adjustment per patient size (includes targeted exams where dose is matched to clinical indication); or iterative reconstruction. REPORTING DATA: Count of CT and Cardiac NM exams in prior 12 months: This patient has received [address] and 0 known cardiac nuclear medicine studies in the 12 months prior to the current study. COMPARISON: CT angio chest PE protcl [id number] 05/13/2022 3:24 PM RADIATION DOSE METRICS: Total DLP (mGy-cm): 453 FINDINGS: Liver: Normal. No mass. Gallbladder and bile ducts: Cholecystectomy. Normal bile ducts. Pancreas: Normal. No ductal dilation. Spleen: Normal. No splenomegaly. Adrenal glands: Normal. No mass. Kidneys and ureters: Parenchymal thinning both kidneys and small left kidney. This suggests chronic kidney disease. Stomach and bowel: Multiple dilated small bowel loops with air-fluid levels. The distal small bowel is normal in decompressed. Consistent with mechanical small bowel obstruction, probably at the level of the proximal ileum. A transition point may be in the left hemipelvis. Otherwise, unremarkable bowel and stomach. Appendix: No evidence of appendicitis. Intraperitoneal space: Unremarkable. No free air. No significant fluid collection. Vasculature: Large amount of arterial calcification. Lymph nodes: Unremarkable. No enlarged lymph nodes. Urinary bladder: Unremarkable as visualized. Reproductive: Unremarkable as visualized. Bones/joints: Unchanged moderate, chronic L1 vertebral body compression deformity. Severe L5-S1 degenerative disc disease. Otherwise, unremarkable. Soft tissues: Unremarkable. CT/[place] [id number] IMPRESSION: 1. Markedly improved bilateral pulmonary abnormality. 2. Tiny left pleural effusion is markedly decreased. 3. Additional details as above. Unchanged. IMPRESSION: 1. Mechanical small bowel obstruction. 2. Additional details as above.
[2022-12-04 15:46] LABS: C Reactive Protein 39.9 mg/L (0.0-4.9)
[2022-12-04 15:51] LABS: Procalcitonin 0.39 ng/mL (0-0.5)
[2022-12-04 15:57] LABS: Adenovirus Not Detected (NOT DETECT); Chlamydia Pneumoniae Not Detected (NOT DETECT); Coronavirus 229E,HKU1,NL63,OC4 Not Detected (NOT DETECT); Human Metapneumovirus Not Detected (NOT DETECT); Human Rhinovirus/Enterovirus Not Detected (NOT DETECT); Influenza A Not Detected (NOT DETECT); Influenza A H1 Not Detected (NOT DETECT); Influenza A H1-2009 Not Detected (NOT DETECT); Influenza A H3 Not Detected (NOT DETECT); Influenza B Not Detected (NOT DETECT); Mycoplasma Pneumoniae Not Detected (NOT DETECT); Parainfluenza Virus Type 1 Not Detected (NOT DETECT); Parainfluenza Virus Type 2 Not Detected (NOT DETECT); Parainfluenza Virus Type 3 Not Detected (NOT DETECT); Parainfluenza Virus Type 4 Not Detected (NOT DETECT); Respiratory Syncytial Virus A Not Detected (NOT DETECT); Respiratory Syncytial Virus B Not Detected (NOT DETECT); SARS-COV-2 Not Detected (NOT DETECT)
[2022-12-04] MEDS: flu vacc pf 2023-24 (6 mos+) 60 MCG IM (16:21)
[2022-12-04] MEDS: heparin 5,000 unit/mL INJ 1 mL 5000 UNIT SUBCUT (16:22)
[2022-12-04] MEDS: pantoprazole 40 mg SDV IVP (16:22)
--- NOTE | 2022-12-04 16:31 | PM.CONSULT ---
Providers/Reason For Consult Consulting Physician/Specialty*: kommana /nephrology Reason for Consult*: esrd Attending Physician: Nino Hdz MD Primary Care Provider: Magdiel Amador MD History of Present Illness History of Present Illness Galina Saba is a 87 year old female With past medical history of end-stage renal disease on hemodialysis, coronary artery disease, COPD, CHF, hypertension, atrial fibrillation interstitial lung disease status post pacemaker presented to the emergency department due to diarrhea. Patient missed dialysis for 2 sessions due to this. In the emergency department labs showed leukocytosis chest x-ray revealed left lung base infiltrate. Potassium was normal. Medications/Allergies Home Medications Medication Instructions Recorded Confirmed Last Taken Type linagliptin 5 mg tablet (Tradjenta) 5 mg PO QAM 04/15/19 12/04/22 12/03/22 History vit B,C-folic ac 800 mcg-zinc 12.5 1 tab PO QAM 06/16/19 12/04/22 12/03/22 History mg-selen-D3 2,000 unit-vit E tablet (RenaPlex-D) atorvastatin 40 mg tablet 40 mg PO BEDTIME 11/17/19 12/04/22 12/03/22 History acetaminophen 500 mg tablet 500 - 1,000 mg PO Q6H PRN Pain 07/31/20 12/04/22 06/26/22 18:00 History (Tylenol Extra Strength) calcium carbonate 200 mg calcium 200 mg PO DAILY PRN Heartburn 07/31/20 12/04/22 12/03/22 History (500 mg) chewable tablet (Tums) fluticasone propionate 50 1 spray intranasal DAILY PRN 07/30/21 12/04/22 12/03/22 History mcg/actuation nasal Allergy Symptoms spray,suspension vit C,E,zinc,copper-[id number] 250 1 cap PO QAM 07/30/21 12/04/22 12/03/22 History mg-lutein 5 mg-zeaxanthin 1 mg capsule amlodipine 10 mg tablet 10 mg PO BEDTIME 10/11/21 12/04/22 12/03/22 History cyanocobalamin (vitamin B-12) 1,000 mcg PO QAM 10/11/21 12/04/22 12/03/22 History 1,000 mcg tablet (Vitamin B-12) omeprazole 40 mg capsule,delayed 40 mg PO BID 10/11/21 12/04/22 12/03/22 History release ropinirole 0.25 mg tablet 0.25 mg PO BEDTIME 05/13/22 12/04/22 12/03/22 History alprazolam 0.25 mg tablet 0.25 mg PO BEDTIME 07/09/22 12/04/22 12/03/22 History losartan 50 mg tablet 50 mg PO BID 07/09/22 12/04/22 12/03/22 History albuterol sulfate 90 mcg/actuation 2 puff inhalation Q4H PRN 11/11/22 12/04/22 Unknown History aerosol inhaler Shortness Of Breath aspirin 81 mg tablet,delayed 81 mg PO BEDTIME 11/11/22 12/04/22 12/03/22 History release budesonide 160 mcg-glycopyr 9 2 inh inhalation BID PRN unknown 11/11/22 12/04/22 Unknown History mcg-formot 4.8 mcg/actuation HFA inhaler (Breztri Aerosphere) furosemide 40 mg tablet 40 mg PO QAM 11/11/22 12/04/22 12/03/22 History metoprolol succinate 50 mg 25 mg PO BID 11/11/22 12/04/22 12/03/22 History tablet,extended release 24 hr nitroglycerin 0.4 mg sublingual 0.4 mg sublingual Q5M PRN Chest 11/11/22 12/04/22 Unknown History tablet (Nitrostat) Pain Allergies Allergy/AdvReac Type Severity Reaction Status Date / Time lisinopril Allergy Unknown Unknown Verified 12/04/22 12:07 morphine AdvReac Intermediate ADR-Nausea Verified 12/04/22 12:07 Current Medications Generic Name Dose Route Start Last Admin Trade Name Freq PRN Reason Stop Dose Admin Heparin Sodium (Porcine) 5,000 unit 12/04/22 16:00 12/04/22 16:22 Heparin 5,000 Unit/Ml Inj 1 Ml SUBCUT 5,000 unit Q12H ROSIBEL Administration Pantoprazole Sodium 40 mg 12/04/22 16:00 12/04/22 16:22 Pantoprazole 40 Mg Sdv IVP 40 mg Q12H ROSIBEL Administration PFSH Acute PFSH: Medical History Anemia Carotid stenosis COPD (chronic obstructive pulmonary disease) Coronary artery disease Cough Dark stools Diabetes Diastolic congestive heart failure Dysphagia End stage renal disease Esophageal dysmotility Essential hypertension Exertional dyspnea Gastritis GERD (gastroesophageal reflux disease) Hematochezia Hiatal hernia Intermittent atrial fibrillation Interstitial lung disease Recurrent aspiration events Severe aortic stenosis Third degree heart block Status post pacemaker placement Surgical History Hemodialysis access site with arteriovenous graft History of laparoscopic cholecystectomy History of permanent cardiac pacemaker placement History of tubal ligation S/P hemodialysis catheter insertion Status post colonoscopy (12/30/19) Family History Mother Cancer Lung cancer Father Diabetes Other CAD (coronary artery disease) Denies family history of Anesthesia complication Bleeding disorder Social History Smoking and tobacco/nicotine status: former use of tobacco/nicotine Quit status (tobacco/nicotine): has quit using Year quit tobacco: 1983 Former quit date comment: 2ppd x 19 years Alcohol intake: never Substance/Drug Use: never Vitals/I&O/Wt Last Vital Signs Temp 97.8 F 12/04/22 12:04 Pulse 70 12/04/22 14:03 Resp 22 H 12/04/22 14:03 BP 135/40 12/04/22 14:03 Pulse Ox 98 12/04/22 14:03 O2 Del Method Nasal Cannula 12/04/22 14:56 O2 Flow Rate 3 12/04/22 13:12 Weight last 48 hrs Weight 51.71 kg Physical Exam Narrative: awake ,alert heent s1 s2 rrr per report lngs clear per report Data 12/05/22 04:41 12/05/22 04:41 Micro: Microbiology 12/04/22 14:29 Blood Culture - Preliminary Blood SPECIMEN COLLECTED 12/04/22 14:25 Blood Culture - Preliminary Blood SPECIMEN COLLECTED A&P Assessment and plan (1) End stage renal disease: Plan 1. End-stage renal disease on: On HD per MWF schedule, missed HD x2 sessions, plan for HD today. Minimal UF due to diarrhea 2. Hypertension: Blood pressure controlled 3. Anemia: We will order CORA 4. History of coronary artery disease 5. History of COPD Patient evaluated using audiovisual cart. Time spent 40 min Consult Attestations Medical Necessity Statement: per medicine team Coding Level of Care Code Acute Code for Chg Fwd Diagnoses End stage renal disease N18.6
[2022-12-04 16:36] LABS: Hepatitis B Surface AB 12.8 (11.5-1000); Hepatitis B Surface Antigen Non-Reactive (Nonreactive)
--- NOTE | 2022-12-04 17:10 | PM.CONSULT ---
Providers/Reason For Consult Consulting Physician/Specialty*: Dr. Aneudy Austin, DO/General surgery Reason for Consult*: Partial small bowel obstruction Attending Physician: Nino Hdz MD Primary Care Provider: Magdiel Amador MD History of Present Illness History of Present Illness Galina Saba is a 87 year old female who presented to the hospital with a 2-day history of severe diarrhea and weakness. She denies any abdominal pain, nausea, emesis, constipation, hematochezia and/or melena. She denies any sick contacts or recent travel. She reports that she has not had a bowel movement today however. CT shows small bowel obstruction with possible transition point. She reports that she is passing flatus. Review of Systems General: Reports: 10 or more systems reviewed and unremarkable except in HPI and below Medications/Allergies Home Medications Medication Instructions Recorded Confirmed Last Taken Type linagliptin 5 mg tablet (Tradjenta) 5 mg PO QAM 04/15/19 12/04/22 12/03/22 History vit B,C-folic ac 800 mcg-zinc 12.5 1 tab PO QAM 06/16/19 12/04/22 12/03/22 History mg-selen-D3 2,000 unit-vit E tablet (RenaPlex-D) atorvastatin 40 mg tablet 40 mg PO BEDTIME 11/17/19 12/04/22 12/03/22 History acetaminophen 500 mg tablet 500 - 1,000 mg PO Q6H PRN Pain 07/31/20 12/04/22 06/26/22 18:00 History (Tylenol Extra Strength) calcium carbonate 200 mg calcium 200 mg PO DAILY PRN Heartburn 07/31/20 12/04/22 12/03/22 History (500 mg) chewable tablet (Tums) fluticasone propionate 50 1 spray intranasal DAILY PRN 07/30/21 12/04/22 12/03/22 History mcg/actuation nasal Allergy Symptoms spray,suspension vit C,E,zinc,copper-[id number] 250 1 cap PO QAM 07/30/21 12/04/22 12/03/22 History mg-lutein 5 mg-zeaxanthin 1 mg capsule amlodipine 10 mg tablet 10 mg PO BEDTIME 10/11/21 12/04/22 12/03/22 History cyanocobalamin (vitamin B-12) 1,000 mcg PO QAM 10/11/21 12/04/22 12/03/22 History 1,000 mcg tablet (Vitamin B-12) omeprazole 40 mg capsule,delayed 40 mg PO BID 10/11/21 12/04/22 12/03/22 History release ropinirole 0.25 mg tablet 0.25 mg PO BEDTIME 05/13/22 12/04/22 12/03/22 History alprazolam 0.25 mg tablet 0.25 mg PO BEDTIME 07/09/22 12/04/22 12/03/22 History losartan 50 mg tablet 50 mg PO BID 07/09/22 12/04/22 12/03/22 History albuterol sulfate 90 mcg/actuation 2 puff inhalation Q4H PRN 11/11/22 12/04/22 Unknown History aerosol inhaler Shortness Of Breath aspirin 81 mg tablet,delayed 81 mg PO BEDTIME 11/11/22 12/04/22 12/03/22 History release budesonide 160 mcg-glycopyr 9 2 inh inhalation BID PRN unknown 11/11/22 12/04/22 Unknown History mcg-formot 4.8 mcg/actuation HFA inhaler (Breztri Aerosphere) furosemide 40 mg tablet 40 mg PO QAM 11/11/22 12/04/22 12/03/22 History metoprolol succinate 50 mg 25 mg PO BID 11/11/22 12/04/22 12/03/22 History tablet,extended release 24 hr nitroglycerin 0.4 mg sublingual 0.4 mg sublingual Q5M PRN Chest 11/11/22 12/04/22 Unknown History tablet (Nitrostat) Pain Allergies Allergy/AdvReac Type Severity Reaction Status Date / Time lisinopril Allergy Unknown Unknown Verified 12/04/22 12:07 morphine AdvReac Intermediate ADR-Nausea Verified 12/04/22 12:07 Current Medications Generic Name Dose Route Start Last Admin Trade Name Freq PRN Reason Stop Dose Admin Alprazolam 0.25 mg 12/04/22 21:00 12/04/22 21:02 Alprazolam 0.5 Mg Tablet PO 0.25 mg BEDTIME ROSIBEL Administration Amlodipine Besylate 10 mg 12/04/22 21:00 12/04/22 21:02 Amlodipine 10 Mg Tablet PO 10 mg BEDTIME ROSIBEL Administration Aspirin 81 mg 12/04/22:00 12/04/22 21:02 Aspirin 81 Mg Ec Tablet PO 81 mg BEDTIME ROSIBEL Administration Atorvastatin Calcium 40 mg 12/04/22 21:00 12/04/22 21:02 Atorvastatin 40 Mg Tablet PO 40 mg BEDTIME ROSIBEL Administration Budesonide 0.5 mg 12/04/22 20:00 12/05/22 08:38 Budesonide 0.5 Mg/2 Ml Neb INHALATION 0.5 mg BID.RESPIRATORY ROSIBEL Administration Heparin Sodium (Porcine) 5,000 unit 12/04/22 16:00 12/05/22 03:47 Heparin 5,000 Unit/Ml Inj 1 Ml SUBCUT 5,000 unit Q12H ROSIBEL Administration Piperacillin Sod/Tazobactam 50 mls @ 12.5 mls/hr 12/04/22 18:00 12/05/22 08:58 Sod 3.375 gm/ Sodium Chloride IV 12.5 mls/hr Q12H ROSIBEL Administration Insulin Human Lispro 0 unit 12/04/22 18:00 12/05/22 08:29 Insulin Lispro 100 Unit/1 Ml SUBCUT Not Given TIDWM ON LICENSE OF [facility] Protocol Losartan Potassium 50 mg 12/04/22 18:00 12/05/22 08:58 Losartan 50 Mg Tablet PO 50 mg BID ROSIBEL Administration Metoprolol Succinate 25 mg 12/04/22 18:00 12/05/22 08:58 Metoprolol Succinate Er (24 Hr) 25 Mg Tablet PO 25 mg BID ROSIBEL Administration Pantoprazole Sodium 40 mg 12/04/22 16:00 12/05/22 03:11 Pantoprazole 40 Mg Sdv IVP 40 mg Q12H ROSIBEL Administration Ropinirole HCl 0.25 mg 12/04/22 21:00 12/04/22 21:02 Ropinirole 0.25 Mg Tablet PO 0.25 mg BEDTIME ROSIBEL Administration PFSH Acute PFSH: Medical History Anemia Carotid stenosis COPD (chronic obstructive pulmonary disease) Coronary artery disease Cough Dark stools Diabetes Diastolic congestive heart failure Dysphagia End stage renal disease Esophageal dysmotility Essential hypertension Exertional dyspnea Gastritis GERD (gastroesophageal reflux disease) Hematochezia Hiatal hernia Intermittent atrial fibrillation Interstitial lung disease Recurrent aspiration events Severe aortic stenosis Third degree heart block Status post pacemaker placement Surgical History Hemodialysis access site with arteriovenous graft History of laparoscopic cholecystectomy History of permanent cardiac pacemaker placement History of tubal ligation S/P hemodialysis catheter insertion Status post colonoscopy (12/30/19) Family History Mother Cancer Lung cancer Father Diabetes Other CAD (coronary artery disease) Denies family history of Anesthesia complication Bleeding disorder Social History Smoking and tobacco/nicotine status: former use of tobacco/nicotine Quit status (tobacco/nicotine): has quit using Year quit tobacco: 1983 Former quit date comment: 2ppd x 19 years Alcohol intake: never Substance/Drug Use: never Vitals/I&O/Wt Last Vital Signs Temp 98.3 F 12/05/22 07:18 Pulse 73 12/05/22 08:47 Resp 16 12/05/22 08:39 BP 119/51 12/05/22 07:18 Pulse Ox 98 12/05/22 08:39 O2 Del Method Nasal Cannula 12/05/22 08:39 O2 Flow Rate 3 12/05/22 08:39 12/04/22 12/05/22 12/05/22 22:59 06:59 14:59 Intake Total 300 / 300 50 / 350 Output Total 1800 / 1800 Balance -1500 / -1500 50 / -1450 Weight last 48 hrs Weight 114 lb Weight 114 lb 10.246 oz Weight 114 lb Physical Exam Narrative: General : Patient is well developed , no acute distress, oriented x3 Head : Normal cephalic, a-traumatic. Ears : Pinnae and external canal are normal. Hearing is normal. Eyes : PERRLA, Sclera and injection are normal. No conjunctival discharge. Nose : Mucous membranes are without erythema. Throat : buccal mucosa is normal, gums are without significant recession or hypertrophy. Lungs : Equal chest rise bilaterally, no use of accessory muscles, trachea is midline. Cor : Rate and rhythm are normal. Abdomen : Soft, ND, NT, no g/r/m Extremities : No edema, no cyanosis or clubbing, dorsalis pedis pulses are present bilaterally, non-tender to palpation of calves. Upper extremities are normal bilaterally. Back : non-tender to palpation, no CVA tenderness. Neuro : CN II - XII intact, Upper and lower extremities have equal and full strength Data 12/05/22 04:41 12/05/22 04:41 Micro: Microbiology 12/04/22 14:29 Blood Culture - Preliminary Blood SPECIMEN COLLECTED 12/04/22 14:25 Blood Culture - Preliminary Blood SPECIMEN COLLECTED A&P Assessment and plan (1) Partial small bowel obstruction: Plan N.p.o. NG tube to low intermittent wall suction IV fluids Conservative management for now. If her partial obstruction does not resolve in the next few days or so, we will have to consider surgical intervention. Medical management per hospitalist Coding Level of Care Code 61384 Diagnoses Partial small bowel obstruction K56.600
[2022-12-04] MEDS: metoprolol succinate ER (24 HR) 25 mg Tablet PO (18:16)
[2022-12-04] MEDS: losartan 50 mg Tablet PO (18:16)
[2022-12-04 18:47] LABS: Glucose Point of Care 99 mg/dL (70-110)
--- NOTE | 2022-12-04 19:58 | PC.HD ---
Dr. Cuevas wrote for 2.5 hour dialysis treatment; however, after initiated HD, she requested treatment be shortened to two hours. Dialysis prescription changed to two hours. Patient tolerated UF removal with no issues or complaints.
[2022-12-04 20:00] LABS: Glucose Point of Care 98 mg/dL (70-110)
[2022-12-04] MEDS: budesonide 0.5 mg/2 mL Neb INHALATION (20:10)
--- NOTE | 2022-12-04 20:11 | XRR_ITS ---
PROCEDURE INFORMATION: Exam: XR Chest Exam date and time: 12/04/2022 9:11 PM Age: 87 years old Clinical indication: Device placement; Ng tube; Additional info: Ng tube placement TECHNIQUE: Imaging protocol: Radiologic exam of the chest. Views: 1 view. COMPARISON: CT chest abdpel [id number] 12/04/2022 4:07 PM FINDINGS: Tubes, catheters and devices: There is an NG tube which tracks into the stomach. Lungs: Unremarkable. No consolidation. Pleural spaces: Unremarkable. No pleural effusion. No pneumothorax. Heart/Mediastinum: Unremarkable. No cardiomegaly. Bones/joints: Unremarkable. XR/XR chest 1V portable [id number] IMPRESSION: There is an NG tube which tracks into the stomach.
[2022-12-04] MEDS: ALPRAZolam 0.5 mg Tablet 0.25 MG PO (21:02)
[2022-12-04] MEDS: amlodipine 10 mg Tablet PO (21:02)
[2022-12-04] MEDS: ropinirole 0.25 mg Tablet PO (21:02)
[2022-12-04] MEDS: aspirin 81 mg EC Tablet PO (21:02)
[2022-12-04] MEDS: atorvastatin 40 mg Tablet PO (21:02)
[2022-12-04] MEDS: piperacillin-tazobactam 3.375 GM in sodium chloride 0.9% (plus) 50 ML IV (21:06)
[2022-12-04] MEDS: epoetin alfa 1000 Unit/0.05 mL (ESRD) 20000 UNIT SUBCUT (21:58)
[2022-12-05] VITALS (10 sets, daily range): BP systolic 117–129; BP diastolic 48–56; PULSE 63–75; RESP 16–18; TEMP 36.3–37.3; O2SAT 91–98
[2022-12-05] MEDS: pantoprazole 40 mg SDV IVP ×2 (03:11→16:27)
[2022-12-05] MEDS: heparin 5,000 unit/mL INJ 1 mL 5000 UNIT SUBCUT ×2 (03:47→16:27)
[2022-12-05 05:14] LABS: Basophils % 0.5 %; Eosinophils # 0.1 10^3/uL (0.0-0.8); Eosinophils % 1.8 %; Hematocrit 25.4 % (36-47); Lymphocytes # 0.7 10^3/uL (0.8-4.8); Lymphocytes % 9.2 %; Mean Corpuscular HGB Conc 30.7 g/dL (30-55); Mean Corpuscular Hemoglobin 31.6 pg (27-33); Mean Corpuscular Volume 102.8 fl (85-98); Mean Platelet Volume 10.6 fL (7.4-10.4); Monocytes # 0.7 10^3/uL (0.2-0.9); Monocytes % 9.9 %; Neutrophils # 5.79 10^3/uL (1.8-7.7); Neutrophils % 78.2 %; Nucleated Red Blood Cells % 0 %; Platelet Count 217 10^3/cmm (157-399); Red Blood Count 2.47 10^6/uL (3.85-5.65); Red Cell Distribution Width 16.8 % (12.1-15.1)
[2022-12-05 05:34] LABS: Alanine Aminotransferase 8 U/L (0-33); Albumin Level 3.2 g/dL (3.5-5.2); Alkaline Phosphatase 81 U/L (35-105); Anion Gap 19.4 (5-19); Aspartate Amino Transferase 16 U/L (0-32); Blood Urea Nitrogen 30 mg/dL (8-23); Calcium 7.6 mg/dL (8.5-10.5); Carbon Dioxide 25 mmol/L (22-29); Chloride 98 mmol/L (98-107); Globulin 2.1 g/dL (1.3-4.6); Glucose 75 mg/dL (65-115); Magnesium 1.7 mg/dL (1.7-2.3); Osmolality Calculated 293 mOsm/kg (285-295); Phosphorus 4.6 mg/dL (2.5-4.5); Potassium 3.4 mmol/L (3.5-5.1); Sodium 139 mmol/L (136-145); Total Bilirubin 0.4 mg/dL (0.15-1.2); Total Protein 5.3 g/dL (6.6-8.7)
[2022-12-05 06:19] LABS: Glucose Point of Care 78 mg/dL (70-110)
--- NOTE | 2022-12-05 08:25 | P.PN_ITS ---
Subjective Subjective: Patient denies nausea. NGT present. Reports flatus w/o bowel movement overnight. Endorses continued weakness and fatigue. Respiratory symptoms unchanged from yesterday. Denies fevers or chills. Medications: Reviewed: Yes Vitals/I&O/Wt Last Vital Signs Temp 98.3 F 12/05/22 07:18 Pulse 75 12/05/22 07:18 Resp 18 12/05/22 07:18 BP 119/51 12/05/22 07:18 Pulse Ox 93 12/05/22 07:18 O2 Del Method Nasal Cannula 12/05/22 07:18 O2 Flow Rate 3 12/04/22 20:00 12/04/22 12/05/22 12/05/22 22:59 06:59 14:59 Intake Total 300 / 300 50 / 350 Output Total 1800 / 1800 Balance -1500 / -1500 50 / -1450 Weight last 48 hrs Weight 51.71 kg Weight 52 kg Weight 51.71 kg Physical Exam Narrative: General: Patient is awake. Alert. Less ill appearing than yesterday. Head: Normocephalic. Atraumatic. Arcus. Neck: No JVD. Cardiovascular: RRR. 3+ systolic ejection murmur. Lungs: Breath sounds are diminished in bilateral bases. Faint dependent scraper tender ckles. No rhonchi or rales. Skin: No jaundice. No rashes. Abdomen: Bowel sounds present, abdomen soft and slightly distended. Extremities: No cyanosis or clubbing. Musculoskeletal: No erythematous joints. Neurological: Moves all 4 extremities. No myoclonus. Data 12/05/22 04:41 12/05/22 04:41 Micro: Microbiology 12/04/22 14:29 Blood Culture - Preliminary Blood SPECIMEN COLLECTED 12/04/22 14:25 Blood Culture - Preliminary Blood SPECIMEN COLLECTED A&P Assessment and plan (1) Diarrhea: Further work up revealed bowel obstruction, suspected partial given clinical presentation Infectious work up pending, but suspect will be negative given new CT findings, continue Zosyn for now IVF PRN d/t ESRD NPO Bowel rest w/ decompression w/ NGT General surgery following appreciate recommendations Correct electrolytes as indicated as to avoid ileus (2) Left lower lobe pneumonia: CAP less likely after reviewing CT findings, PNA work up still pending Continue to monitor (3) End stage renal disease on dialysis: 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, also w/ mild hypokalemia Nephro following, HD per nephro (4) Acute on chronic diastolic CHF (congestive heart failure): Volume control has improved, she is better compensated now Continue beta bill Hold home Lasix (5) Generalized weakness: Debility and physical deconditioning secondary to acute illness Supportive care Treat underlying infection Therapy (6) COPD (chronic obstructive pulmonary disease): COPD and interstitial lung disease Monitor for exacerbation Continue nebulizing treatments (7) Anemia: Anemia of ESRD Defer to nephro Qualifiers: Anemia type: unspecified type Qualified Code(s): D64.9 - Anemia, unspecified (8) Coronary artery disease: Continue home statin Qualifiers: Associated angina: without angina Coronary Disease-Associated Artery/Lesion type: [place] artery [place] vs. transplanted heart: [place] heart Qualified Code(s): I25.10 - Atherosclerotic heart disease of [place] coronary artery without angina pectoris (9) Diabetes: Hold oral medications Sliding scale insulin correction Avoid hypoglycemia (10) Essential hypertension: Continue home Norvasc Continue home metoprolol Continue home losartan Plan DVT ppx: Heparin Attestations Medical Necessity Statement*: Patient requires ongoing hospitalization for continued care for bowel rest with decompression, serial abdominal exam, additional imaging to assess bowel function, electrolyte monitoring, general surgery monitoring, therapy evaluation, dialysis, telemetry, iv abx, and supportive care with hospitalization now expected to cross two midnights. Coding Level of Care Code Acute Code for Chg Fwd Diagnoses Diarrhea R19.7 Left lower lobe pneumonia J18.9 End stage renal disease on dialysis N18.6; Z99.2 Acute on chronic diastolic CHF (congestive heart failure) I50.33 Generalized weakness R53.1 COPD (chronic obstructive pulmonary disease) J44.9 Anemia D64.9 Anemia type: unspecified type Coronary artery disease I25.10 Associated angina: without angina Coronary Disease-Associated Artery/Lesion type: [place] artery [place] vs. transplanted heart: [place] heart Diabetes E11.9 Essential hypertension I10
[2022-12-05] MEDS: budesonide 0.5 mg/2 mL Neb INHALATION ×2 (08:38→19:47)
[2022-12-05] MEDS: piperacillin-tazobactam 3.375 GM in sodium chloride 0.9% (plus) 50 ML IV ×2 (08:58→20:21)
[2022-12-05] MEDS: metoprolol succinate ER (24 HR) 25 mg Tablet PO (08:58)
[2022-12-05] MEDS: losartan 50 mg Tablet PO (08:58)
--- NOTE | 2022-12-05 10:45 | PC.CHAP ---
Pastoral Care Encounter/Spiritual Assessment Type of Contact [] Declined economics lecturer visit [] Patient/Family/Request visit [] Outpatient visit [] Follow-up visit [] Physician referral [] Code/Alert [x] Routine visit [] Staff referral [] Actively dying [] Patient sleeping [] Family support [] [] Out of room [] Palliative care [] [x] Receiving care in room [] Pre-surgical visit [] Trauma [] Long length of stay [] ICU visit [] Other: Relational/Emotional Strength [x] Patient feels connected with others/family/visitors/staff [] Distress [] Loneliness/isolation [] Abandonment Spirituality of Patient [x] Person of Fannie [x] Attends [employer] of their [employer] [x Believes in Prayer [] Reads Bible or Yarsanism materials [] There are Spiritual issues to be addressed Hand Rug Cleaner Interventions [x] Prayer [x] Active listening [x] Non-anxious presence [x] Spiritual/emotional support [] Crisis/trauma care [x] Spiritual counseling [] Bereavement support [] Provided bereavement packet [] Provided Bible/devotional materials [] Provided toy/stuffed animal, coloring book to patient or family member [] Provided Communion [] Anointing/[place] [] Salvation [] Completed spiritual assessment [] Other: Impact on Illness or Injury [] Angry [] Fearful [] Anxious [] Often cries [] Exhaustion [] Unable to work [] Unable to attend caodaism [] Unable to walk/stand [] Unable to read [] Unable to drive [] Unable to eat/drink [] Unable to sleep [] Unable to be with family [] Patient intubated [] Other: Summary senior staff +1 family taking care with doctors has a good attitude well go home with family Time spent with patient 10 mins
[2022-12-05 11:44] LABS: Glucose Point of Care 66 mg/dL (70-110)
[2022-12-05] MEDS: levofloxacin-dextrose 5 % 500 MG/100 ML PREMIX 100 MG IV (12:15)
--- NOTE | 2022-12-05 14:36 | PM.PN ---
Subjective Subjective: Patient seen and examined. She reports she is passing a significant amount of flatus and has not had a bowel movement. Denies any nausea or vomiting. Denies any abdominal pain Vitals/I&O/Wt Last Vital Signs Temp 97.4 F L 12/05/22 11:08 Pulse 73 12/05/22 08:47 Resp 18 12/05/22 11:08 BP 121/50 12/05/22 11:08 Pulse Ox 98 12/05/22 08:39 O2 Del Method Nasal Cannula 12/05/22 08:39 O2 Flow Rate 3 12/05/22 08:39 12/04/22 12/05/22 12/05/22 22:59 06:59 14:59 Intake Total 300 / 300 50 / 350 150 / 150 Output Total 1800 / 1800 Balance -1500 / -1500 50 / -1450 150 / 150 Weight last 48 hrs Weight 114 lb Weight 114 lb 10.246 oz Weight 114 lb Physical Exam Narrative: General: No acute distress, awake alert and oriented x3 Abdomen: Soft, nontender, nondistended, no guarding rebound or masses Data 12/05/22 04:41 12/05/22 04:41 Micro: Microbiology 12/04/22 14:40 Gram Stain - Final Sputum - Expectorated Sputum 12/04/22 14:29 Blood Culture - Preliminary Blood NEGATIVE TO DATE 12/04/22 14:25 Blood Culture - Preliminary Blood NEGATIVE TO DATE A&P Assessment and plan (1) Partial small bowel obstruction: Plan DC NG tube Clear liquid diet IV fluids Conservative management for now. If her partial obstruction does not resolve in the next few days or so, we will have to consider surgical intervention. Medical management per hospitalist Attestations Medical Necessity Statement*: Per primary Coding Level of Care Code 30391 Diagnoses Partial small bowel obstruction K56.600
--- NOTE | 2022-12-05 16:53 | PM.PN ---
Subjective Subjective: no nwe complaints Medications: Reviewed: Yes Vitals/I&O/Wt Last Vital Signs Temp 97.6 F 12/05/22 15:37 Pulse 63 12/05/22 15:37 Resp 18 12/05/22 15:37 BP 117/49 12/05/22 15:37 Pulse Ox 91 12/05/22 15:37 O2 Del Method Nasal Cannula 12/05/22 15:37 O2 Flow Rate 3 12/05/22 08:39 12/05/22 12/05/22 12/05/22 06:59 14:59 22:59 Intake Total 50 / 350 150 / 150 Balance 50 / -1450 150 / 150 Weight last 48 hrs Weight 51.71 kg Weight 52 kg Weight 51.71 kg Physical Exam Narrative: awake ,alert heent s1 s2 rrr per report lngs clear per report Data 12/05/22 04:41 12/05/22 04:41 Micro: Microbiology 12/04/22 14:40 Gram Stain - Final Sputum - Expectorated Sputum Sputum Culture - Preliminary Gram Negative Rods 12/04/22 14:29 Blood Culture - Preliminary Blood NEGATIVE TO DATE 12/04/22 14:25 Blood Culture - Preliminary Blood NEGATIVE TO DATE A&P Assessment and plan (1) End stage renal disease: Plan 1. End-stage renal disease on: On HD per MWF schedule, missed HD x2 sessions, HD tomorrow 2. Hypertension: Blood pressure controlled 3. Anemia: We will order CORA 4. History of coronary artery disease 5. History of COPD Patient evaluated using audiovisual cart. Time spent 40 min Attestations Medical Necessity Statement*: per mediicne team Coding Level of Care Code Acute Code for Chg Fwd Diagnoses End stage renal disease N18.6
[2022-12-05 17:07] LABS: Glucose Point of Care 71 mg/dL (70-110)
--- NOTE | 2022-12-05 17:13 | PC.NURSE ---
This nurse held 1800 dose of losartan and metoprolol due to HR being 63 and BP being 117/49. Dr. Hdz notified and agreed to hold these medications.
[2022-12-05] MEDS: atorvastatin 40 mg Tablet PO (20:11)
[2022-12-05] MEDS: aspirin 81 mg EC Tablet PO (20:11)
[2022-12-05] MEDS: amlodipine 10 mg Tablet PO (20:11)
[2022-12-05] MEDS: ALPRAZolam 0.5 mg Tablet 0.25 MG PO (20:11)
[2022-12-05] MEDS: ropinirole 0.25 mg Tablet PO (20:11)
[2022-12-05 20:12] LABS: Glucose Point of Care 116 mg/dL (70-110)
[2022-12-06] VITALS (14 sets, daily range): BP systolic 111–147; BP diastolic 39–62; PULSE 60–76; RESP 14–18; TEMP 36.3–37.2; O2SAT 93–100
[2022-12-06] MEDS: heparin 5,000 unit/mL INJ 1 mL 5000 UNIT SUBCUT ×2 (03:57→15:35)
[2022-12-06] MEDS: pantoprazole 40 mg SDV IVP ×2 (04:09→20:06)
[2022-12-06 05:42] LABS: Basophils % 0.5 %; Eosinophils # 0.2 10^3/uL (0.0-0.8); Eosinophils % 2.4 %; Hematocrit 23.4 % (36-47); Lymphocytes # 0.7 10^3/uL (0.8-4.8); Lymphocytes % 10.2 %; Mean Corpuscular HGB Conc 30.3 g/dL (30-55); Mean Corpuscular Hemoglobin 30.5 pg (27-33); Mean Corpuscular Volume 100.4 fl (85-98); Mean Platelet Volume 10.9 fL (7.4-10.4); Monocytes # 0.9 10^3/uL (0.2-0.9); Monocytes % 13.3 %; Neutrophils # 4.87 10^3/uL (1.8-7.7); Neutrophils % 73.3 %; Nucleated Red Blood Cells % 0 %; Platelet Count 208 10^3/cmm (157-399); Red Blood Count 2.33 10^6/uL (3.85-5.65); Red Cell Distribution Width 16.5 % (12.1-15.1); White Blood Count 6.64 10^3/uL (3.29-11.43)
[2022-12-06 06:04] LABS: Alanine Aminotransferase 8 U/L (0-33); Albumin Level 2.9 g/dL (3.5-5.2); Alkaline Phosphatase 72 U/L (35-105); Anion Gap 17.9 (5-19); Aspartate Amino Transferase 16 U/L (0-32); Blood Urea Nitrogen 36 mg/dL (8-23); Calcium 7.5 mg/dL (8.5-10.5); Carbon Dioxide 26 mmol/L (22-29); Chloride 98 mmol/L (98-107); Globulin 2.4 g/dL (1.3-4.6); Glucose 88 mg/dL (65-115); Magnesium 1.5 mg/dL (1.7-2.3); Osmolality Calculated 294 mOsm/kg (285-295); Phosphorus 4.6 mg/dL (2.5-4.5); Potassium 3.9 mmol/L (3.5-5.1); Sodium 138 mmol/L (136-145); Total Bilirubin 0.3 mg/dL (0.15-1.2); Total Protein 5.3 g/dL (6.6-8.7)
[2022-12-06 06:19] LABS: Glucose Point of Care 95 mg/dL (70-110)
[2022-12-06] MEDS: budesonide 0.5 mg/2 mL Neb INHALATION ×2 (08:28→20:34)
[2022-12-06] MEDS: piperacillin-tazobactam 3.375 GM in sodium chloride 0.9% (plus) 50 ML IV ×2 (08:32→21:24)
[2022-12-06] MEDS: metoprolol succinate ER (24 HR) 25 mg Tablet PO ×2 (08:33→20:07)
[2022-12-06] MEDS: losartan 50 mg Tablet PO ×2 (08:34→20:07)
--- NOTE | 2022-12-06 09:30 | PM.PN ---
Subjective Subjective: denies nay complaints Medications: Reviewed: Yes Vitals/I&O/Wt Last Vital Signs Temp 97.4 F L 12/06/22 07:51 Pulse 70 12/06/22 08:25 Resp 16 12/06/22 08:13 BP 115/54 12/06/22 08:34 Pulse Ox 94 12/06/22 08:13 O2 Del Method Nasal Cannula 12/06/22 08:13 O2 Flow Rate 3 12/06/22 08:13 12/05/22 12/06/22 12/06/22 22:59 06:59 14:59 Intake Total 360 / 510 50 / 560 240 / 240 Balance 360 / 510 50 / 560 240 / 240 Weight last 48 hrs Weight 52.163 kg Weight 51.71 kg Weight 52 kg Weight 51.71 kg Physical Exam Narrative: awake ,alert heent s1 s2 rrr per report lngs clear per report Data 12/06/22 04:51 12/06/22 04:51 Micro: Microbiology 12/04/22 14:40 Gram Stain - Final Sputum - Expectorated Sputum Sputum Culture - Preliminary Gram Negative Rods 12/04/22 14:29 Blood Culture - Preliminary Blood NEGATIVE TO DATE 12/04/22 14:25 Blood Culture - Preliminary Blood NEGATIVE TO DATE A&P Assessment and plan (1) End stage renal disease: Plan 1. End-stage renal disease on: On HD per MWF schedule, missed HD x2 sessions, HD tomorrow 2. Hypertension: Blood pressure controlled 3. Anemia: We will order CORA, transfuse if hb< 7 4. History of coronary artery disease 5. History of COPD Patient evaluated using audiovisual cart. Time spent 40 min Attestations Medical Necessity Statement*: per mediicne team Coding Level of Care Code Acute Code for Chg Fwd Diagnoses End stage renal disease N18.6
--- NOTE | 2022-12-06 09:48 | P.PN_ITS ---
Subjective Subjective: Patient tolerating clear liquid diet. Reports soft formed bowel movement this morning without water diarrhea. Denies fevers or chills. Denies emesis. Daughter is bedside and supportive. Medications: Reviewed: Yes Vitals/I&O/Wt Last Vital Signs Temp 97.4 F L 12/06/22 07:51 Pulse 70 12/06/22 08:25 Resp 16 12/06/22 08:13 BP 115/54 12/06/22 08:34 Pulse Ox 94 12/06/22 08:13 O2 Del Method Nasal Cannula 12/06/22 08:13 O2 Flow Rate 3 12/06/22 08:13 12/05/22 12/06/22 12/06/22 22:59 06:59 14:59 Intake Total 360 / 510 50 / 560 240 / 240 Balance 360 / 510 50 / 560 240 / 240 Weight last 48 hrs Weight 52.163 kg Weight 51.71 kg Weight 52 kg Weight 51.71 kg Physical Exam Narrative: General: Patient is awake. Pleasant. Head: Normocephalic. Atraumatic. Arcus. Neck: No JVD. Cardiovascular: RRR. 3+ systolic ejection murmur. Lungs: Breath sounds are diminished in bilateral bases. No rhonchi or rales. No respiratory distress. Skin: No jaundice. No rashes. Abdomen: Bowel sounds present, abdomen soft. No guarding. Extremities: No cyanosis or clubbing. Musculoskeletal: No erythematous joints. Neurological: Moves all 4 extremities. No myoclonus. Data 12/06/22 04:51 12/06/22 04:51 Micro: Microbiology 12/04/22 14:40 Gram Stain - Final Sputum - Expectorated Sputum Sputum Culture - Preliminary Gram Negative Rods 12/04/22 14:29 Blood Culture - Preliminary Blood NEGATIVE TO DATE 12/04/22 14:25 Blood Culture - Preliminary Blood NEGATIVE TO DATE A&P Assessment and plan (1) Partial small bowel obstruction: General surgery following, appreciate recommendations Tolerating CLD Monitoring electrolytes Consider additional imaging, will wait for general surgery input Continue therapy (2) Left lower lobe pneumonia: CAP considered, on Zosyn Continue to monitor (3) End stage renal disease on dialysis: 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 Nephro following, HD per nephro (4) Acute on chronic diastolic CHF (congestive heart failure): Volume status improved Continue beta bill Hold home Lasix, possibly restart this weekend (5) Generalized weakness: Debility and physical deconditioning secondary to acute illness Supportive care Treat underlying infection Therapy (6) COPD (chronic obstructive pulmonary disease): COPD and interstitial lung disease Monitor for exacerbation Continue nebulizing treatments (7) Anemia: Anemia of ESRD Defer to nephro Qualifiers: Anemia type: unspecified type Qualified Code(s): D64.9 - Anemia, unspecified (8) Coronary artery disease: Continue home statin Qualifiers: Associated angina: without angina Coronary Disease-Associated Artery/Lesion type: [place] artery [place] vs. transplanted heart: [place] heart Qualified Code(s): I25.10 - Atherosclerotic heart disease of [place] coronary artery without angina pectoris (9) Diabetes: Hold oral medications Sliding scale insulin correction Avoid hypoglycemia (10) Essential hypertension: Continue home Norvasc Continue home metoprolol Continue home losartan Hold blood pressure medications as needed for soft BP or HD Plan DVT ppx: Heparin Attestations Medical Necessity Statement*: [place] requires ongoing hospitalization for serial abdominal exams, general surgery expertise, electrolyte monitoring, management of bowel obstruction, dialysis, IV abx, therapy, and supportive care. Coding Level of Care Code Acute Code for Chg Fwd Diagnoses Partial small bowel obstruction K56.600 Left lower lobe pneumonia J18.9 End stage renal disease on dialysis N18.6; Z99.2 Acute on chronic diastolic CHF (congestive heart failure) I50.33 Generalized weakness R53.1 COPD (chronic obstructive pulmonary disease) J44.9 Anemia D64.9 Anemia type: unspecified type Coronary artery disease I25.10 Associated angina: without angina Coronary Disease-Associated Artery/Lesion type: [place] artery [place] vs. transplanted heart: [place] heart Diabetes E11.9 Essential hypertension I10
--- NOTE | 2022-12-06 10:20 | PC.SOCIAL ---
IMM Update IMM not updated with pt, for pt is in Observation status.
[2022-12-06] MEDS: acetaminophen 325 mg Tablet 650 MG PO ×2 (11:01→23:14)
[2022-12-06 11:30] LABS: Glucose Point of Care 115 mg/dL (70-110)
--- NOTE | 2022-12-06 11:43 | PM.PN ---
Subjective Subjective: Patient seen and examined. She reports that she had a large liquid bowel movement and is passing flatus. Denies any nausea or vomiting. Denies any abdominal pain. Vitals/I&O/Wt Last Vital Signs Temp 97.5 F L 12/07/22 12:36 Pulse 62 12/07/22 12:36 Resp 18 12/07/22 12:36 BP 123/54 12/07/22 12:36 Pulse Ox 99 12/07/22 12:36 O2 Del Method Nasal Cannula 12/07/22 12:36 O2 Flow Rate 3 12/07/22 08:15 12/06/22 12/07/22 12/07/22 22:59 06:59 14:59 Intake Total 1300 / 2070 50 / 2120 1060 / 1060 Output Total 2487 / 2487 200 / 2687 Balance -1187 / -417 -150 / -567 1060 / 1060 Weight last 48 hrs Weight 118 lb 1 oz Weight 118 lb 2.684 oz Weight 115 lb Physical Exam Narrative: General: No acute distress, awake alert and oriented x3 Abdomen: Soft, nontender, nondistended, no guarding rebound or masses Data 12/07/22 03:30 12/07/22 03:30 Micro: Microbiology 12/04/22 14:40 Gram Stain - Final Sputum - Expectorated Sputum Sputum Culture - Preliminary Gram Negative Rods Coag positive Staphylococcus A&P Assessment and plan (1) Partial small bowel obstruction: Plan Full liquid diet IV fluids Conservative management for now. If her partial obstruction does not resolve in the next few days or so, we will have to consider surgical intervention. Medical management per hospitalist Attestations Medical Necessity Statement*: Per primary Coding Level of Care Code Acute Code for Chg Fwd Diagnoses Partial small bowel obstruction K56.600
[2022-12-06] MEDS: lidocaine 5% Patch 1 PATCH TOPICAL (13:34)
[2022-12-06] MEDS: epoetin alfa 1000 Unit/0.05 mL (ESRD) 20000 UNIT SUBCUT (15:23)
[2022-12-06] MEDS: heparin, porcine 1,000 unit/mL INJ 10 mL 1000 UNIT IV (15:23)
--- NOTE | 2022-12-06 15:30 | PC.NURSE ---
Patient to receive a unit of blood during dialysis. Dialysis is not ready for patient at this time. Eric IBARRA notified blood is ready
[2022-12-06 16:39] LABS: Glucose Point of Care 102 mg/dL (70-110)
[2022-12-06] MEDS: doxycycline 100 MG in sodium chloride 0.9% (plus) 100 ML IV (20:06)
[2022-12-06] MEDS: ropinirole 0.25 mg Tablet PO (20:06)
[2022-12-06] MEDS: aspirin 81 mg EC Tablet PO (20:06)
[2022-12-06] MEDS: ALPRAZolam 0.5 mg Tablet 0.25 MG PO (20:06)
[2022-12-06] MEDS: atorvastatin 40 mg Tablet PO (20:07)
[2022-12-06] MEDS: amlodipine 10 mg Tablet PO (20:07)
[2022-12-06 21:02] LABS: Glucose Point of Care 136 mg/dL (70-110)
[2022-12-06] MEDS: diclofenac 1% Topical Gel 100 gm 1 APPLIC TOPICAL (23:14)
--- NOTE | 2022-12-06 23:17 | PC.NURSE ---
Patient c/o pain to right shoulder and back of neck. Patient states she has had this pain for about 3 weeks, but it comes and goes. Patient states that she doesn't like to take narcotics. Patient asking for a gel for the pain. Dr. Domingo notified and Diclofenac gel ordered. PRN Tylenol ordered and gel applied.
[2022-12-07] VITALS (11 sets, daily range): BP systolic 112–148; BP diastolic 51–72; PULSE 60–79; RESP 16–18; TEMP 36.4–36.9; O2SAT 93–100
[2022-12-07 04:21] LABS: Anion Gap 15.6 (5-19); Blood Urea Nitrogen 15 mg/dL (8-23); C Reactive Protein 51.4 mg/L (0.0-4.9); Calcium 7.8 mg/dL (8.5-10.5); Carbon Dioxide 27 mmol/L (22-29); Chloride 100 mmol/L (98-107); Glucose 85 mg/dL (65-115); Magnesium 1.6 mg/dL (1.7-2.3); Potassium 3.6 mmol/L (3.5-5.1); Sodium 139 mmol/L (136-145)
[2022-12-07 04:45] LABS: Basophils % 0.5 %; Eosinophils # 0.1 10^3/uL (0.0-0.8); Eosinophils % 1.7 %; Hematocrit 29.1 % (36-47); Lymphocytes # 0.6 10^3/uL (0.8-4.8); Lymphocytes % 9.6 %; Mean Corpuscular HGB Conc 31.3 g/dL (30-55); Mean Corpuscular Hemoglobin 29.5 pg (27-33); Mean Corpuscular Volume 94.5 fl (85-98); Mean Platelet Volume 10.6 fL (7.4-10.4); Monocytes # 0.8 10^3/uL (0.2-0.9); Monocytes % 12.3 %; Neutrophils # 4.85 10^3/uL (1.8-7.7); Neutrophils % 75.4 %; Nucleated Red Blood Cells % 0 %; Platelet Count 206 10^3/cmm (157-399); Red Blood Count 3.08 10^6/uL (3.85-5.65); Red Cell Distribution Width 18.7 % (12.1-15.1); White Blood Count 6.43 10^3/uL (3.29-11.43)
[2022-12-07 06:40] LABS: Glucose Point of Care 102 mg/dL (70-110)
--- NOTE | 2022-12-07 08:18 | P.PN_ITS ---
Subjective Subjective: Patient reportedly had some loose fecal incontinence yesterday. She states later on her stool was more formed. She is currently on full liquid diet. She reports she is tolerating it ok with minimal abdominal symptoms. Has been up out of bed yesterday. Denies fevers, chest pain, or abdominal pains. Medications: Reviewed: Yes Vitals/I&O/Wt Last Vital Signs Temp 98.5 F 12/07/22 04:00 Pulse 64 12/07/22 04:00 Resp 16 12/07/22 04:00 BP 128/51 12/07/22 04:00 Pulse Ox 93 12/07/22 04:00 O2 Del Method Room Air 12/07/22 04:00 O2 Flow Rate 3 12/06/22 20:30 12/06/22 12/07/22 12/07/22 22:59 06:59 14:59 Intake Total 1300 / 2070 50 / 2120 Output Total 2487 / 2487 200 / 2687 Balance -1187 / -417 -150 / -567 Weight last 48 hrs Weight 53.552 kg Weight 53.6 kg Weight 52.163 kg Physical Exam Narrative: General: Patient is awake. Pleasant. Conversational. Head: Normocephalic. Atraumatic. Arcus. Neck: No JVD. Cardiovascular: RRR. 3+ systolic ejection murmur. Lungs: Breath sounds are diminished in bilateral bases. No rhonchi or rales. No respiratory distress. Skin: No jaundice. No rashes. Abdomen: Bowel sounds present, abdomen soft. No guarding. Extremities: No cyanosis or clubbing. Musculoskeletal: No erythematous joints. Neurological: Moves all 4 extremities. No myoclonus. Data 12/07/22 03:30 12/07/22 03:30 Micro: Microbiology 12/04/22 14:40 Gram Stain - Final Sputum - Expectorated Sputum Sputum Culture - Preliminary Gram Negative Rods Coag positive Staphylococcus A&P Assessment and plan (1) Partial small bowel obstruction: General surgery following, appreciate recommendations Tolerating FLD, plan to advance to regular diet if OK w/ general surgery Monitor for worsening of symptoms w/ advancing diet Fecal incontinence yesterday noted, may consider repeat imaging to evaluate pSBO pending clinical course Serial abdominal exam Electrolyte management (2) Left lower lobe pneumonia: CAP considered, on Zosyn No additional respiratory complaints today (3) End stage renal disease on dialysis: 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 Nephro following, HD per nephro (4) Acute on chronic diastolic CHF (congestive heart failure): Overall now compensated, acute exacerbation has resolved w/ volume management via HD Continue beta bill Plan to restart home Lasix Friday (5) Generalized weakness: Debility and physical deconditioning secondary to acute illness Supportive care Treat underlying infection Therapy (6) COPD (chronic obstructive pulmonary disease): COPD and interstitial lung disease Monitor for exacerbation Continue nebulizing treatments (7) Anemia: Anemia of ESRD, s/p 1 pRBC on 12/06 Defer to nephro Qualifiers: Anemia type: unspecified type Qualified Code(s): D64.9 - Anemia, unsp ecified (8) Coronary artery disease: Continue home statin Qualifiers: Associated angina: without angina Coronary Disease-Associated Artery/Lesion type: [place] artery [place] vs. transplanted heart: [place] heart Qualified Code(s): I25.10 - Atherosclerotic heart disease of [place] coronary artery without angina pectoris (9) Diabetes: Hold oral medications Sliding scale insulin correction Avoid hypoglycemia (10) Essential hypertension: Continue home Norvasc Continue home metoprolol Continue home losartan Plan DVT ppx: Heparin Attestations Medical Necessity Statement*: Patient requires ongoing hospitalization for management of her small bowel obstruction with plans to advance diet if approved with general surgery, serial abdominal exams, possibly additional imaging, further therapy, and supportive care. Coding Level of Care Code Acute Code for Chg Fwd Diagnoses Partial small bowel obstruction K56.600 Left lower lobe pneumonia J18.9 End stage renal disease on dialysis N18.6; Z99.2 Acute on chronic diastolic CHF (congestive heart failure) I50.33 Generalized weakness R53.1 COPD (chronic obstructive pulmonary disease) J44.9 Anemia D64.9 Anemia type: unspecified type Coronary artery disease I25.10 Associated angina: without angina Coronary Disease-Associated Artery/Lesion type: [place] artery [place] vs. transplanted heart: [place] heart Diabetes E11.9 Essential hypertension I10
[2022-12-07] MEDS: budesonide 0.5 mg/2 mL Neb INHALATION ×2 (08:20→19:56)
[2022-12-07] MEDS: losartan 50 mg Tablet PO ×2 (09:37→18:00)
[2022-12-07] MEDS: metoprolol succinate ER (24 HR) 25 mg Tablet PO ×2 (09:37→18:01)
[2022-12-07] MEDS: lidocaine 5% Patch 1 PATCH TOPICAL (09:38)
[2022-12-07] MEDS: heparin 5,000 unit/mL INJ 1 mL 5000 UNIT SUBCUT ×2 (09:38→20:16)
[2022-12-07] MEDS: doxycycline 100 MG in sodium chloride 0.9% (plus) 100 ML IV ×2 (09:38→20:15)
[2022-12-07] MEDS: pantoprazole 40 mg SDV IVP ×2 (10:57→20:43)
--- NOTE | 2022-12-07 11:25 | PM.PN ---
Subjective Subjective: no new complants Medications: Reviewed: Yes Vitals/I&O/Wt Last Vital Signs Temp 97.9 F 12/07/22 08:24 Pulse 60 12/07/22 08:24 Resp 16 12/07/22 08:24 BP 112/59 12/07/22 09:37 Pulse Ox 98 12/07/22 08:24 O2 Del Method Nasal Cannula 12/07/22 08:24 O2 Flow Rate 3 12/07/22 08:15 12/06/22 12/07/22 12/07/22 22:59 06:59 14:59 Intake Total 1300 / 2070 50 / 2120 505 / 505 Output Total 2487 / 2487 200 / 2687 Balance -1187 / -417 -150 / -567 505 / 505 Weight last 48 hrs Weight 53.552 kg Weight 53.6 kg Weight 52.163 kg Physical Exam Narrative: awake ,alert heent s1 s2 rrr per report lungs clear per report no edema Data 12/07/22 03:30 12/07/22 03:30 Micro: Microbiology 12/04/22 14:40 Gram Stain - Final Sputum - Expectorated Sputum Sputum Culture - Preliminary Gram Negative Rods Coag positive Staphylococcus A&P Assessment and plan (1) End stage renal disease: Plan 1. End-stage renal disease on: On HD per MWF schedule, missed HD x2 sessions, Next HD friday 2. Hypertension: Blood pressure controlled 3. Anemia: We will order CORA, transfuse if hb< 7 4. History of coronary artery disease 5. History of COPD Patient evaluated using audiovisual cart. Time spent 20 min Attestations Medical Necessity Statement*: per medicine team Coding Level of Care Code Acute Code for Chg Fwd Diagnoses End stage renal disease N18.6
[2022-12-07 11:26] LABS: Glucose Point of Care 100 mg/dL (70-110)
[2022-12-07] MEDS: piperacillin-tazobactam 3.375 GM in sodium chloride 0.9% (plus) 50 ML IV ×2 (12:16→21:53)
--- NOTE | 2022-12-07 13:44 | PM.PN ---
Subjective Subjective: Patient seen and examined. She continues to have bowel movements and passes flatus. Denies any abdominal pain. Vitals/I&O/Wt Last Vital Signs Temp 97.5 F L 12/07/22 12:36 Pulse 62 12/07/22 12:36 Resp 18 12/07/22 12:36 BP 123/54 12/07/22 12:36 Pulse Ox 99 12/07/22 12:36 O2 Del Method Nasal Cannula 12/07/22 12:36 O2 Flow Rate 3 12/07/22 08:15 12/06/22 12/07/22 12/07/22 22:59 06:59 14:59 Intake Total 1300 / 2070 50 / 2120 1060 / 1060 Output Total 2487 / 2487 200 / 2687 Balance -1187 / -417 -150 / -567 1060 / 1060 Weight last 48 hrs Weight 118 lb 1 oz Weight 118 lb 2.684 oz Weight 115 lb Physical Exam Narrative: General: No acute distress, awake alert and oriented x3 Abdomen: Soft, nontender, nondistended, no guarding rebound or masses Data 12/07/22 03:30 12/07/22 03:30 Micro: Microbiology 12/04/22 14:40 Gram Stain - Final Sputum - Expectorated Sputum Sputum Culture - Preliminary Gram Negative Rods Coag positive Staphylococcus A&P Assessment and plan (1) Partial small bowel obstruction: Plan Soft diet Surgically stable for discharge Medical management per hospitalist Attestations Medical Necessity Statement*: Per primary Coding Level of Care Code Acute Code for Chg Fwd Diagnoses Partial small bowel obstruction K56.600
[2022-12-07 16:55] LABS: Glucose Point of Care 100 mg/dL (70-110)
[2022-12-07] MEDS: acetaminophen 325 mg Tablet 650 MG PO (18:02)
[2022-12-07] MEDS: ketorolac 10 mg Tablet 30 MG PO (20:14)
[2022-12-07] MEDS: amlodipine 10 mg Tablet PO (20:15)
[2022-12-07] MEDS: atorvastatin 40 mg Tablet PO (20:15)
[2022-12-07] MEDS: ALPRAZolam 0.5 mg Tablet 0.25 MG PO (20:15)
[2022-12-07] MEDS: aspirin 81 mg EC Tablet PO (20:15)
[2022-12-07] MEDS: ropinirole 0.25 mg Tablet PO (20:15)
[2022-12-07 20:46] LABS: Glucose Point of Care 197 mg/dL (70-110)
[2022-12-08] VITALS (12 sets, daily range): BP systolic 109–137; BP diastolic 40–80; PULSE 60–98; RESP 16–19; TEMP 36.2–36.6; O2SAT 95–100
[2022-12-08 05:14] LABS: Basophils % 0.7 %; Eosinophils # 0.2 10^3/uL (0.0-0.8); Hematocrit 27.5 % (36-47); Lymphocytes # 0.8 10^3/uL (0.8-4.8); Lymphocytes % 13.9 %; Mean Corpuscular HGB Conc 31.6 g/dL (30-55); Mean Corpuscular Hemoglobin 30.3 pg (27-33); Mean Corpuscular Volume 95.8 fl (85-98); Mean Platelet Volume 10.6 fL (7.4-10.4); Monocytes # 0.7 10^3/uL (0.2-0.9); Monocytes % 12.4 %; Neutrophils # 3.98 10^3/uL (1.8-7.7); Neutrophils % 68.5 %; Nucleated Red Blood Cells % 0 %; Platelet Count 220 10^3/cmm (157-399); Red Blood Count 2.87 10^6/uL (3.85-5.65); Red Cell Distribution Width 18.6 % (12.1-15.1); White Blood Count 5.81 10^3/uL (3.29-11.43)
[2022-12-08 05:51] LABS: Albumin Level 2.7 g/dL (3.5-5.2); Anion Gap 14.5 (5-19); Blood Urea Nitrogen 21 mg/dL (8-23); Carbon Dioxide 25 mmol/L (22-29); Chloride 96 mmol/L (98-107); Glucose 98 mg/dL (65-115); Magnesium 1.6 mg/dL (1.7-2.3); Phosphorus 3.7 mg/dL (2.5-4.5); Potassium 3.5 mmol/L (3.5-5.1); Sodium 132 mmol/L (136-145)
[2022-12-08 05:52] LABS: Creatinine Clr Calc Pharmacy 5.2805
[2022-12-08 06:45] LABS: Glucose Point of Care 78 mg/dL (70-110)
[2022-12-08] MEDS: budesonide 0.5 mg/2 mL Neb INHALATION (08:12)
[2022-12-08] MEDS: losartan 50 mg Tablet PO (08:44)
[2022-12-08] MEDS: metoprolol succinate ER (24 HR) 25 mg Tablet PO (08:44)
[2022-12-08] MEDS: heparin 5,000 unit/mL INJ 1 mL 5000 UNIT SUBCUT ×2 (08:44→21:38)
[2022-12-08] MEDS: doxycycline 100 MG in sodium chloride 0.9% (plus) 100 ML IV (08:44)
[2022-12-08] MEDS: pantoprazole 40 mg SDV IVP (08:57)
--- NOTE | 2022-12-08 10:31 | PM.PN ---
Subjective Subjective: no new complaints Medications: Reviewed: Yes Vitals/I&O/Wt Last Vital Signs Temp 97.5 F L 12/08/22 07:43 Pulse 63 12/08/22 08:22 Resp 16 12/08/22 08:12 BP 116/80 12/08/22 08:44 Pulse Ox 96 12/08/22 08:12 O2 Del Method Nasal Cannula 12/08/22 08:12 O2 Flow Rate 3 12/08/22 08:12 12/07/22 12/08/22 12/08/22 22:59 06:59 14:59 Intake Total 590 1999 50 2049 580 / 580 Balance 590 / 1999 580 / 580 Weight last 48 hrs Weight 57.379 kg Weight 53.552 kg Weight 53.6 kg Physical Exam Narrative: awake ,alert heent s1 s2 rrr per report lungs clear per report no edema Data 12/08/22 04:20 12/08/22 04:20 Micro: Microbiology 12/04/22 14:40 Gram Stain - Final Sputum - Expectorated Sputum Sputum Culture - Final Enterobacter cloacae Staphylococcus aureus A&P Assessment and plan (1) End stage renal disease: Plan 1. End-stage renal disease on: On HD per MWF schedule, Next HD friday 2. Hypertension: Blood pressure controlled 3. Anemia: We will order CORA, transfuse if hb< 7 4. History of coronary artery disease 5. History of COPD Patient evaluated using audiovisual cart. Time spent 20 min Attestations Medical Necessity Statement*: Per primary Coding Level of Care Code Acute Code for [facility] Fwd Diagnoses End stage renal disease N18.6
[2022-12-08] MEDS: cefdinir 300 MG CAPSULE PO (11:57)
[2022-12-08 12:03] LABS: Glucose Point of Care 150 mg/dL (70-110)
[2022-12-08] MEDS: insulin lispro 100 unit/1 mL SUBCUT (13:17)
--- NOTE | 2022-12-08 13:39 | PM.PN ---
Subjective Subjective: Patient seen and examined. She denies any abdominal pain nausea or emesis. She reports continued diarrhea however. Denies any hematochezia and/or melena. Tolerating soft diet Vitals/I&O/Wt Last Vital Signs Temp 97.8 F 12/08/22 12:29 Pulse 96 12/08/22 12:29 Resp 18 12/08/22 12:29 BP 133/56 12/08/22 12:29 Pulse Ox 100 12/08/22 12:29 O2 Del Method Nasal Cannula 12/08/22 12:29 O2 Flow Rate 3 12/08/22 08:12 12/07/22 12/08/22 12/08/22 22:59 06:59 14:59 Intake Total 1999 50 / 0 1060 / 1060 Balance 1999 1060 / 1060 Weight last 48 hrs Weight 126 lb 8 oz Weight 118 lb 1 oz Weight 118 lb 2.684 oz Physical Exam Narrative: General: No acute distress, awake alert and oriented x3 Abdomen: Soft, nontender, nondistended, no guarding rebound or masses Data 12/08/22 04:20 12/08/22 04:20 Micro: Microbiology 12/04/22 14:40 Gram Stain - Final Sputum - Expectorated Sputum Sputum Culture - Final Enterobacter cloacae Staphylococcus aureus A&P Assessment and plan (1) Partial small bowel obstruction: Plan Soft diet Diarrhea is expected after recovery from a small bowel obstruction, however we will order stool studies for safe measure. Surgically stable for discharge Medical management per hospitalist Attestations Medical Necessity Statement*: Per primary Coding Level of Care Code 51624 Diagnoses Partial small bowel obstruction K56.600
[2022-12-08 15:27] LABS: Glucose Point of Care 78 mg/dL (70-110)
[2022-12-08 16:37] LABS: Glucose Point of Care 93 mg/dL (70-110)
--- NOTE | 2022-12-08 17:56 | PM.PN ---
Subjective Subjective: Patient denies nausea, vomiting, or abdominal pain. Endorses a little bit of sour stomach at times. Per report, the insulin also made her feel sick. There is concern for ongoing diarrhea. Denies fevers or chills. Daughter is bedside and supportive. Medications: Reviewed: Yes Vitals/I&O/Wt Last Vital Signs Temp 97.4 F L 12/08/22 16:37 Pulse 60 12/08/22 16:37 Resp 18 12/08/22 16:37 BP 109/40 12/08/22 16:37 Pulse Ox 96 12/08/22 16:37 O2 Del Method Nasal Cannula 12/08/22 16:37 O2 Flow Rate 3 12/08/22 08:12 12/08/22 12/08/22 12/08/22 06:59 14:59 22:59 Intake Total 2049 1060 / 1060 Balance 2049 1060 / 1060 Weight last 48 hrs Weight 57.379 kg Weight 53.552 kg Weight 53.6 kg Physical Exam Narrative: General: Patient is awake. Alert. Interactive. Head: Normocephalic. Atraumatic. Arcus. Neck: No JVD. Cardiovascular: RRR. 3+ systolic ejection murmur. Lungs: Breath sounds are diminished in bilateral bases. No rhonchi or rales. No respiratory distress. Skin: No jaundice. No rashes. Abdomen: Bowel sounds present, abdomen soft. No guarding. Extremities: No cyanosis or clubbing. Musculoskeletal: No erythematous joints. Neurological: Moves all 4 extremities. No myoclonus. 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 Nephro following, HD per nephro (4) Acute on chronic diastolic CHF (congestive heart failure): Now compensated Continue beta bill Restart home Lasix (5) Generalized weakness: Debility and physical deconditioning secondary to acute illness Supportive care Treat underlying infection Therapy (6) COPD (chronic obstructive pulmonary disease): COPD and interstitial lung disease Monitor for exacerbation Continue nebulizing treatments (7) Anemia: Anemia of ESRD, s/p 1 pRBC on 12/06 Defer to nephro Qualifiers: Anemia type: unspecified type Qualified Code(s): D64.9 - Anemia, unspecified (8) Coronary artery disease: Continue home statin Qualifiers: Associated angina: without angina Coronary Disease-Associated Artery/Lesion type: [place] artery [place] vs. transplanted heart: [place] heart Qualified Code(s): I25.10 - Atherosclerotic heart disease of [place] coronary artery without angina pectoris (9) Diabetes: Hold oral medications Discontinue SSI Avoid hypoglycemia (10) Essential hypertension: Continue home Norvasc Continue home metoprolol Continue home losartan Plan DVT ppx: Heparin Attestations Medical Necessity Statement*: Patient requires ongoing hospitalization for management of management of diarrhea, pSBO, therapy, and supportive care with anticipated discharge in next 24-48 hours if she continues to improve. Coding Level of Care Code Acute Code for Chg Fwd Diagnoses Partial small bowel obstruction K56.600 Left lower lobe pneumonia J18.9 End stage renal disease on dialysis N18.6; Z99.2 Acute on chronic diastolic CHF (congestive heart failure) I50.33 Generalized weakness R53.1 COPD (chronic obstructive pulmonary disease) J44.9 Anemia D64.9 Anemia type: unspecified type Coronary artery disease I25.10 Associated angina: without angina Coronary Disease-Associated Artery/Lesion type: [place] artery [place] vs. transplanted heart: [place] heart Diabetes E11.9 Essential hypertension I10
[2022-12-08 19:55] LABS: Glucose Point of Care 137 mg/dL (70-110)
[2022-12-08] MEDS: ALPRAZolam 0.5 mg Tablet 0.25 MG PO (21:39)
[2022-12-08] MEDS: acetaminophen 325 mg Tablet 650 MG PO (21:40)
[2022-12-08] MEDS: aspirin 81 mg EC Tablet PO (21:41)
[2022-12-08] MEDS: atorvastatin 40 mg Tablet PO (21:41)
[2022-12-08] MEDS: amlodipine 10 mg Tablet PO (21:42)
[2022-12-08] MEDS: ropinirole 0.25 mg Tablet PO (21:42)
[2022-12-08] MEDS: lidocaine 5% Patch 1 PATCH TOPICAL (21:46)
[2022-12-09] VITALS (9 sets, daily range): BP systolic 108–144; BP diastolic 40–59; PULSE 59–70; RESP 15–18; TEMP 36.3–36.8; O2SAT 93–99
[2022-12-09] MEDS: metoclopramide 10 mg Tablet PO (00:51)
[2022-12-09] MEDS: morphine IR 15 mg Tablet PO (01:20)
--- NOTE | 2022-12-09 01:57 | PC.NURSE ---
pt pain this nurse contacted physician regarding pt pain. physician gave orders for PO morphine and PO reglan since pt doesn't have an iv d/t anticipated dc tomorrow. this nurse discussed adverse reaction vs allergy with pt regarding morphine.
[2022-12-09 05:43] LABS: Anion Gap 19.9 (5-19); Blood Urea Nitrogen 26 mg/dL (8-23); Calcium 8.2 mg/dL (8.5-10.5); Carbon Dioxide 23 mmol/L (22-29); Chloride 99 mmol/L (98-107); Glucose 93 mg/dL (65-115); Phosphorus 4.1 mg/dL (2.5-4.5); Potassium 3.9 mmol/L (3.5-5.1); Sodium 138 mmol/L (136-145)
[2022-12-09 06:46] LABS: Glucose Point of Care 104 mg/dL (70-110)
--- NOTE | 2022-12-09 08:00 | XRR_ITS ---
PROCEDURE INFORMATION: Exam: XR Right Shoulder Exam date and time: 12/09/2022 8:15 AM Age: 87 years old Clinical indication: Pain; Shoulder; Right; Prior surgery; Surgery date: 6+ months; Surgery type: Pacer/rt rotator cuff; Patient HX: Kind of trauma not specified; Additional info: Right shoulder pain, HX of recent trauma TECHNIQUE: Imaging protocol: Radiologic exam of the right shoulder. Views: 2 or more views. COMPARISON: CR (CHEST, ) 12/04/2022 9:11 PM FINDINGS: Bones/joints: The patient is status post right shoulder surgery. There is no evidence of acute fracture or dislocation. There is calcific tendinosis again noted. Soft tissues: Normal. XR/XR shoulder RT min 2V* [id number] IMPRESSION: No evidence of acute fracture or dislocation.
[2022-12-09] MEDS: heparin 5,000 unit/mL INJ 1 mL 5000 UNIT SUBCUT ×2 (08:03→20:33)
[2022-12-09] MEDS: FUROsemide 40 mg Tablet PO (08:03)
[2022-12-09] MEDS: metoprolol succinate ER (24 HR) 25 mg Tablet PO (08:06)
--- NOTE | 2022-12-09 09:41 | PM.PN ---
Subjective Subjective: no new complaints Medications: Reviewed: Yes Vitals/I&O/Wt Last Vital Signs Temp 97.8 F 12/09/22 08:00 Pulse 67 12/09/22 08:00 Resp 18 12/09/22 08:00 BP 133/58 12/09/22 08:00 Pulse Ox 96 12/09/22 08:00 O2 Del Method Nasal Cannula 12/09/22 08:00 O2 Flow Rate 3 12/09/22 08:00 12/08/22 12/09/22 12/09/22 22:59 06:59 14:59 Intake Total 720 / 1780 Balance 720 / 1780 Weight last 48 hrs Weight 55.338 kg Weight 57.379 kg Physical Exam Narrative: awake ,alert heent s1 s2 rrr per report lungs clear per report no edema Data 12/08/22 04:20 12/09/22 04:13 A&P Assessment and plan (1) End stage renal disease: Plan 1. End-stage renal disease on: On HD per MWF schedule, Next HD today 2. Hypertension: Blood pressure controlled 3. Anemia: ordered CORA, transfuse if hb< 7 4. History of coronary artery disease 5. History of COPD Patient evaluated using audiovisual cart. Time spent 20 min Attestations Medical Necessity Statement*: per medicine team Coding Level of Care Code Acute Code for Chg Fwd Diagnoses End stage renal disease N18.6
--- NOTE | 2022-12-09 11:48 | PC.SOCIAL ---
IMM Update pg 2 of IMM updated and reviewed w/ patients daughter. Copy provided and copy dated, initialed and placed in chart.
[2022-12-09] MEDS: epoetin alfa 1000 Unit/0.05 mL (ESRD) 20000 UNIT SUBCUT (13:21)
--- NOTE | 2022-12-09 13:35 | XRR_ITS ---
PROCEDURE INFORMATION: Exam: XR Abdomen Exam date and time: 12/09/2022 1:55 PM Age: 87 years old Clinical indication: Abdominal pain; Generalized; Prior surgery; Surgery date: 6+ months; Surgery type: Pacer; Additional info: Evaluate for sbo TECHNIQUE: Imaging protocol: Radiologic exam of the abdomen. Views: Frontal supine view of the abdomen. 1 View. COMPARISON: [place] [id number] 12/04/2022 4:07 PM FINDINGS: Gastrointestinal tract: Bowel gas pattern is unremarkable. No sign of obstruction. Intraperitoneal space: No gross free air. Visible portions of pelvis are unremarkable. Bones/joints: There is mild degenerative disease in the lumbar spine. L1 compression fracture is incompletely imaged. XR/XR abdomen 1V* [id number] IMPRESSION: No visibly dilated bowel.
--- NOTE | 2022-12-09 13:53 | P.PN_ITS ---
Subjective Subjective: Patient receiving dialysis. States that she had increased abdominal pain overnight. She needed morphine. Also nauseous this morning, did not finish her breakfast per daughter at bedside. At this time she says her abdominal pain is improving. States that opiates made her sleepy. She is having 1-2 loose bowel movements. Passing flatus. Medications: Reviewed: Yes Vitals/I&O/Wt Last Vital Signs Temp 98.1 F 12/09/22 12:25 Pulse 70 12/09/22 12:25 Resp 18 12/09/22 12:25 BP 108/40 12/09/22 12:25 Pulse Ox 96 12/09/22 08:00 O2 Del Method Nasal Cannula 12/09/22 08:00 O2 Flow Rate 3 12/09/22 08:00 12/08/22 12/09/22 12/09/22 22:59 06:59 14:59 Intake Total 720 / 1780 500 / 500 Output Total 2097 / 2097 Balance 720 / 1780 -1597 / -1597 Weight last 48 hrs Weight 54.6 kg Weight 55.338 kg Weight 57.379 kg Physical Exam Narrative: General: No acute distress, AO x3 HEENT: PERRLA, pupils bilaterally equal and reactive, pallors not present Chest: Normal vesicular breath sounds, no added sounds, equal good air entry bilaterally CVS: S1-S2 regular, no murmurs, no tachycardia, no gallops, no rubs Abdomen: Soft, nontender, no organomegaly, bowel sounds present Neuro: No focal deficits, no facial deformity, AO x3, power 5/5 in all limbs Data 12/08/22 04:20 12/09/22 04:13 A&P Assessment and plan (1) Partial small bowel obstruction: Tolerating diet, however states that last night she had an episode of worsened abdominal pain. This morning had a poor appetite. We will repeat x-ray of the abdomen to evaluate for any worsening with regards to her obstruction. Persistent diarrhea either 2/2 sequela from post obstruction or possibly infectious, stool studies currently are send out results pending. Empirically currently on cefdinir 300 mg p.o. every other day (2) Left lower lobe pneumonia: CAP considered initially, but not appreciated on CT Respiratory cultures with Enterobacter and Staph aureus MSSA Currently on cefdinir 300 mg p.o. 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 (4) Acute on chronic diastolic CHF (congestive heart failure): Now compensated Continue beta bill Restart home Lasix (5) Generalized weakness: Debility and physical deconditioning secondary to acute illness Supportive care Treat underlying infection Therapy (6) COPD (chronic obstructive pulmonary disease): COPD and interstitial lung disease Monitor for exacerbation Continue nebulizing treatments (7) Anemia: Anemia of ESRD, s/p 1 pRBC on 12/06 Defer to nephro Qualifiers: Anemia type: unspecified type Qualified Code(s): D64.9 - Anemia, unspecified (8) Coronary artery disease: Continue home statin Qualifiers: Associated angina: without angina Coronary Disease-Associated Artery/Lesion type: [place] artery [place] vs. transplanted heart: [place] heart Qualified Code(s): I25.10 - Atherosclerotic heart disease of [place] coronary artery without angina pectoris (9) Diabetes: Hold oral medications Discontinue SSI Avoid hypoglycemia (10) Essential hypertension: Continue home Norvasc Continue home metoprolol Continue home losartan Plan DVT ppx: Heparin Attestations Medical Necessity Statement*: Check x-ray of the abdomen flatplate now given worsened abdominal pain overnight. Stool studies remain pending. Coding Level of Care Code Acute Code for Chg Fwd Moderate MDM includes number and complexity of problems actively addressed during encounter, amount and/or complexity of data reviewed/ordered and describ ed risk of complication, morbidity or mortality of management as documented Diagnoses Partial small bowel obstruction K56.600 Left lower lobe pneumonia J18.9 End stage renal disease on dialysis N18.6; Z99.2 Acute on chronic diastolic CHF (congestive heart failure) I50.33 Generalized weakness R53.1 COPD (chronic obstructive pulmonary disease) J44.9 Anemia D64.9 Anemia type: unspecified type Coronary artery disease I25.10 Associated angina: without angina Coronary Disease-Associated Artery/Lesion type: [place] artery [place] vs. transplanted heart: [place] heart Diabetes E11.9 Essential hypertension I10
[2022-12-09] MEDS: ondansetron 4 MG Tablet PO (16:01)
[2022-12-09 16:57] LABS: Glucose Point of Care 149 mg/dL (70-110)
[2022-12-09 20:09] LABS: Glucose Point of Care 111 mg/dL (70-110)
[2022-12-09] MEDS: amlodipine 10 mg Tablet PO (20:33)
[2022-12-09] MEDS: aspirin 81 mg EC Tablet PO (20:33)
[2022-12-09] MEDS: ALPRAZolam 0.5 mg Tablet 0.25 MG PO (20:33)
[2022-12-09] MEDS: pantoprazole 40 mg SDV IVP (20:33)
[2022-12-09] MEDS: atorvastatin 40 mg Tablet PO (20:33)
[2022-12-09] MEDS: ropinirole 0.25 mg Tablet PO (20:33)
[2022-12-09] MEDS: lidocaine 5% Patch 1 PATCH TOPICAL (20:34)
[2022-12-10 04:00] VITALS: BP 119/54; PULSE 74; RESP 17; TEMP 36.2; O2SAT 96
[2022-12-10] MEDS: FUROsemide 40 mg Tablet PO (05:19)
[2022-12-10 05:54] LABS: Basophils % 0.5 %; Eosinophils # 0.2 10^3/uL (0.0-0.8); Eosinophils % 1.9 %; Hematocrit 29.2 % (36-47); Lymphocytes % 11.6 %; Mean Corpuscular HGB Conc 30.1 g/dL (30-55); Mean Corpuscular Hemoglobin 29.3 pg (27-33); Mean Corpuscular Volume 97.3 fl (85-98); Mean Platelet Volume 10.4 fL (7.4-10.4); Monocytes # 0.7 10^3/uL (0.2-0.9); Monocytes % 8.2 %; Neutrophils # 6.58 10^3/uL (1.8-7.7); Neutrophils % 77.4 %; Nucleated Red Blood Cells % 0 %; Platelet Count 303 10^3/cmm (157-399); Red Cell Distribution Width 18.3 % (12.1-15.1)
[2022-12-10 06:19] LABS: Alanine Aminotransferase 9 U/L (0-33); Albumin Level 3.1 g/dL (3.5-5.2); Alkaline Phosphatase 84 U/L (35-105); Anion Gap 15.5 (5-19); Aspartate Amino Transferase 14 U/L (0-32); Blood Urea Nitrogen 22 mg/dL (8-23); Calcium 8.4 mg/dL (8.5-10.5); Carbon Dioxide 26 mmol/L (22-29); Chloride 101 mmol/L (98-107); Glucose 96 mg/dL (65-115); Osmolality Calculated 289 mOsm/kg (285-295); Potassium 4.5 mmol/L (3.5-5.1); Sodium 138 mmol/L (136-145); Total Bilirubin 0.3 mg/dL (0.15-1.2); Total Protein 5.1 g/dL (6.6-8.7)
[2022-12-10 06:53] LABS: Glucose Point of Care 92 mg/dL (70-110)
[2022-12-10 07:19] VITALS: BP 151/53; PULSE 71; RESP 16; O2SAT 91
[2022-12-10] MEDS: pantoprazole 40 mg SDV IVP (08:26)
[2022-12-10] MEDS: heparin 5,000 unit/mL INJ 1 mL 5000 UNIT SUBCUT (08:26)
[2022-12-10 08:27] VITALS: BP 151/53
[2022-12-10] MEDS: metoprolol succinate ER (24 HR) 25 mg Tablet PO (08:27)
[2022-12-10] MEDS: cefdinir 300 MG CAPSULE PO (08:27)
[2022-12-10] MEDS: losartan 50 mg Tablet PO (08:27)
[2022-12-10] MEDS: lidocaine 5% Patch 1 PATCH TOPICAL (08:28)
[2022-12-10 09:09] VITALS: PULSE 63; RESP 18; O2SAT 96
--- NOTE | 2022-12-10 09:36 | PC.CHAP ---
Pastoral Care Encounter/Spiritual Assessment Type of Contact [] Declined delivery table feeder visit [] Patient/Family/Request visit [] Outpatient visit [] Follow-up visit [] Physician referral [] Code/Alert [x] Routine visit [] Staff referral [] Actively dying [] Patient sleeping [x] Family support [] [] Out of room [] Palliative care [] [] Receiving care in room [] Pre-surgical visit [] Trauma [] Long length of stay [] ICU visit [] Other: Relational/Emotional Strength [x] Patient feels connected with others/family/visitors/staff [] Distress [] Loneliness/isolation [] Abandonment Spirituality of Patient [x] Person of Fannie [] Attends Yarsani of their Fannie [x] Believes in Prayer [] Reads Bible or Congregation materials [] There are Spiritual issues to be addressed Water Supply Technician Interventions [x] Prayer [x] Active listening [] Non-anxious presence [x] Spiritual/emotional support [] Crisis/trauma care [] Spiritual counseling [] Bereavement support [] Provided bereavement packet [] Provided Bible/devotional materials [] Provided toy/stuffed animal, coloring book to patient or family member [] Provided Communion [] Anointing/Wilmer [] Salvation [x Completed spiritual assessment [] Other: Impact on Illness or Injury [] Angry [] Fearful [] Anxious [] Often cries [] Exhaustion [] Unable to work [] Unable to attend pentecostalism [] Unable to walk/stand [] Unable to read [] Unable to drive [] Unable to eat/drink [] Unable to sleep [] Unable to be with family [] Patient intubated [] Other: Summary Time spent with patient 5 min
--- NOTE | 2022-12-10 09:43 | PM.DCS ---
Discharge Providers Date of Admission: 12/06/22 08:33 Date of Discharge: December 10, 2022 Attending Provider at Admission: Nino Hdz MD Attending Provider at Discharge: Sabrina Almaguer MD Primary Care Provider: Magdiel Amador MD Diagnoses at Discharge Discharge Diagnosis (1) Partial small bowel obstruction: Status: Acute (2) Left lower lobe pneumonia: Status: Acute (3) End stage renal disease on dialysis: Status: Inactive (4) Acute on chronic diastolic CHF (congestive heart failure): Status: Acute (5) Generalized weakness: Status: Acute (6) COPD (chronic obstructive pulmonary disease): Status: Acute (7) Anemia: Status: Acute Qualifiers: Anemia type: unspecified type Qualified Code(s): D64.9 - Anemia, unspecified (8) Coronary artery disease: Status: Acute Qualifiers: Associated angina: without angina Coronary Disease-Associated Artery/Lesion type: [place] artery [place] vs. transplanted heart: [place] heart Qualified Code(s): I25.10 - Atherosclerotic heart disease of [place] coronary artery without angina pectoris (9) Diabetes: Status: Acute (10) Essential hypertension: Status: Acute Reason for Visit Reason for Visit: weakness, ND Brief History: Galina Saba is a 87 year old female with a past medical history significant for ESRD on HD, coronary artery disease, COPD, congestive heart failure with preserved ejection fraction, hypertension, atrial fibrillation, aortic stenosis, interstitial lung disease and complete heart block status post pacemaker placement who presented to the emergency department with severe diarrhea. She was found to have a partial SBO Hospital course as below: Hospital Course Hospital Course (1) Partial small bowel obstruction: Managed conservatively with bowel rest and symptomatic treatment for nausea and pain. Surgery was consulted Currently Tolerating GI soft diet Persistent diarrhea either 2/2 sequela from post obstruction or possibly infectious, stool studies currently are send out results pending- recommend to follow up with PCP as outpatient Empirically currently on cefdinir 300 mg p.o. every other day which she is tolerating Most recent x ray abdomen on 12/09 without visibly dilated bowel Patient's daughter reports she had normal EGD and colonoscopy few months ago (2) Left lower lobe pneumonia: CAP considered initially, but not appreciated on CT Respiratory cultures with Enterobacter and Staph aureus MSSA Currently on cefdinir 300 mg p.o. every other day, doing well from a respiratory standpoint (3) End stage renal disease on dialysis: 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 Nephro following during hospital course, received hemodialysis (4) Acute on chronic diastolic CHF (congestive heart failure): Now compensated started on beta bill (5) Generalized weakness: Debility and physical deconditioning secondary to acute illness Supportive care Treat underlying infection Therapy (6) COPD (chronic obstructive pulmonary disease): COPD and interstitial lung disease No obviosu exacerbation during hospital stay Continue nebulizing treatments (7) Anemia: Anemia of ESRD, s/p 1 pRBC on 12/06 Patient is being discharged today in Physical Exam Narrative: General: No acute distress, AO x3 HEENT: PERRLA, pupils bilaterally equal and reactive, pallors not present Chest: Normal vesicular breath sounds, no added sounds, equal good air entry bilaterally CVS: S1-S2 regular, no murmurs, no tachycardia, no gallops, no rubs Abdomen: Soft, nontender, no organomegaly, bowel sounds present Neuro: No focal deficits, no facial deformity, AO x3, power 5/5 in all limbs Discharge Data Studies Completed and Pending Completed Studies During Hospitalization Category Date Time Status CT chest abdomen pelvis [[place] [id number] Cat Scan 12/04/22 14:52 Completed ] Routine XR abdomen 1V* [id number] Routine Exams 12/09/22 13:35 Completed XR chest 1V portable [id number] Stat Exams 12/04/22 12:10 Completed XR chest 1V portable [id number] Stat Exams 12/04/22 20:11 Completed XR shoulder RT min 2V* [id number] Routine Exams 12/09/22 08:00 Completed Pending at discharge Category Date Time Status Clostridium Diffi Toxin Reflex Routine Lab 12/08/22 13:39 Ordered Immunochemical Fecal OCB Routine Lab 12/08/22 13:39 Ordered Lactoferrin Routine Lab 12/08/22 13:39 Ordered OVA and Parasites, Conc and PE Routine Lab 12/08/22 13:39 Ordered Salmonella / Shigella / Campy Routine Lab 12/08/22 13:39 Ordered Radiology Impressions Chest/Abdomen/Pelvis CT 12/04/22 14:52 IMPRESSION: 1. Markedly improved bilateral pulmonary abnormality. 2. Tiny left pleural effusion is markedly decreased. 3. Additional details as above. Unchanged. IMPRESSION: 1. Mechanical small bowel obstruction. 2. Additional details as above. ADDENDUM: 12/04/22 [id number] Addendum:THIS REPORT CONTAINS FINDINGS THAT MAY BE CRITICAL TO PATIENT CARE. The findings were verbally communicated via telephone conference with Nino Hdz at 4:46 PM CDT on 12/04/2022. The findings were acknowledged and understood. Chest X-Ray 12/04/22 20:11 IMPRESSION: There is an NG tube which tracks into the stomach. Shoulder X-Ray 12/09/22 08:00 IMPRESSION: No evidence of acute fracture or dislocation. Abdomen X-Ray 12/09/22 13:35 IMPRESSION: No visibly dilated bowel. Laboratory Results WBC 8.50 10^3/uL (3.29-11.43) 12/10/22 05:16 RBC 3.00 10^6/uL (3.85-5.65) L 12/10/22 05:16 Hgb 8.80 g/dL (11.27-16.99) L 12/10/22 05:16 Hct 29.2 % (36-47) L 12/10/22 05:16 MCV 97.3 fl (85-98) 12/10/22 05:16 MCH 29.3 pg (27-33) 12/10/22 05:16 MCHC 30.1 g/dL (30-55) 12/10/22 05:16 RDW 18.3 % (12.1-15.1) H 12/10/22 05:16 Plt Count 303 10^3/cmm (157-399) 12/10/22 05:16 MPV 10.4 fL (7.4-10.4) 12/10/22 05:16 Neut % (Auto) 77.4 % 12/10/22 05:16 Lymph % (Auto) 11.6 % 12/10/22 05:16 Dare % (Auto) 8.2 % 12/10/22 05:16 Eos % (Auto) 1.9 % 12/10/22 05:16 Baso % (Auto) 0.5 % 12/10/22 05:16 Neut # (Auto) 6.58 10^3/uL (1.8-7.7) 12/10/22 05:16 Lymph # (Auto) 1.0 10^3/uL (0.8-4.8) 12/10/22 05:16 Dare # (Auto) 0.7 10^3/uL (0.2-0.9) 12/10/22 05:16 Eos # (Auto) 0.2 10^3/uL (0.0-0.8) 12/10/22 05:16 Baso # (Auto) 0.0 10^3/uL (0.0-0.1) 12/10/22 05:16 Nucleated RBC % (auto) 0 % 12/10/22 05:16 Nucleated RBCs # 0.0 /100WBC 12/10/22 05:16 Sodium 138 mmol/L (136-145) 12/10/22 05:16 Potassium 4.5 mmol/L (3.5-5.1) 12/10/22 05:16 Chloride 101 mmol/L (98-107) 12/10/22 05:16 Carbon Dioxide 26 mmol/L (22-29) 12/10/22 05:16 Anion Gap 15.5 (5-19) 12/10/22 05:16 BUN 22 mg/dL (8-23) 12/10/22 05:16 Creatinine 6.4 mg/dL (0.5-0.9) H* 12/10/22 05:16 GFR Calculation Not Reportable 12/10/22 05:16 Glucose 96 mg/dL (65-115) 12/10/22 05:16 POC Glucose 92 mg/dL (70-110) 12/10/22 06:47 Calculated Osmolality 289 mOsm/kg (285-295) 12/10/22 05:16 Calcium 8.4 mg/dL (8.5-10.5) L 12/10/22 05:16 Phosphorus 4.1 mg/dL (2.5-4.5) 12/09/22 04:13 Magnesium 1.6 mg/dL (1.7-2.3) L 12/08/22 04:20 Total Bilirubin 0.3 mg/dL (0.15-1.2) 12/10/22 05:16 AST 14 U/L (0-32) 12/10/22 05:16 ALT 9 U/L (0-33) 12/10/22 05:16 Alkaline Phosphatase 84 U/L (35-105) 12/10/22 05:16 C-Reactive Protein 51.4 mg/L (0.0-4.9) H 12/07/22 03:30 Total Protein 5.1 g/dL (6.6-8.7) L 12/10/22 05:16 Albumin 3.1 g/dL (3.5-5.2) L 12/10/22 05:16 Globulin 2.0 g/dL (1.3-4.6) 12/10/22 05:16 Lipase 13 U/L (13-60) 12/04/22 12:52 Procalcitonin 0.39 ng/mL (0-0.5) 12/04/22 12:52 Coronavirus 229E (PCR) Not detected (NOT DETECT) 12/04/22 13:51 Hep Bs Antigen Non-reactive (Nonreactive) 12/04/22 12:52 Hep Bs Antibody 12.8 (11.5-1000) 12/04/22 12:52 SARS-CoV-2 (PCR) Not detected (NOT DETECT) 12/04/22 13:51 Blood Type A Positive 12/06/22 14:11 Rho(D) Type Positive 12/06/22 14:11 Antibody Screen Negative 12/06/22 14:11 Crossmatch See Detail 12/06/22 14:11 Vitals Last Vital Signs Temp 97.2 F L 12/10/22 04:00 Pulse 63 12/10/22 09:09 Resp 18 12/10/22 09:09 BP 151/53 12/10/22 08:27 Pulse Ox 96 12/10/22 09:09 O2 Del Method Nasal Cannula 12/10/22 09:09 O2 Flow Rate 3 12/10/22 09:09 Discharge Plan Discharge Patient Disposition: Home Condition: Stable Prescriptions: New ondansetron HCl 4 mg tablet 4 mg PO Q8H PRN (Reason: nausea and vomiting) 5 Days Qty: 15 0RF cefdinir 300 mg Capsule 300 mg PO EVERY OTHER DAY 5 Days Qty: 3 0RF pantoprazole [Protonix] 40 mg tablet,delayed release (DR/EC) 40 mg PO DAILY 30 Days Qty: 30 0RF Continued Tradjenta 5 mg tablet 5 mg PO QAM alprazolam 0.25 mg tablet 0.25 mg PO BEDTIME acetaminophen [Tylenol Extra Strength] 500 mg Tablet 500 - 1,000 mg PO Q6H PRN (Reason: Pain) calcium carbonate [Tums] 200 mg calcium (500 mg) Tablet,Chewable 200 mg PO DAILY PRN (Reason: Heartburn) RenaPlex-D 800 mcg-12.5 mg -2,000 unit tablet 1 tab PO QAM atorvastatin 40 mg Tablet 40 mg PO BEDTIME ropinirole 0.25 mg Tablet 0.25 mg PO BEDTIME C,E,zinc,copper [id number] 250-5-1 mg Capsule 1 cap PO QAM fluticasone propionate 50 mcg/actuation [place],Suspension 1 spray INTRANASAL DAILY PRN (Reason: Allergy Symptoms) Rx Instructions: administer into each nostril losartan 50 mg tablet 50 mg PO BID cyanocobalamin (vitamin B-12) [Vitamin B-12] 1,000 mcg Tablet 1,000 mcg PO QAM amlodipine 10 mg tablet 10 mg PO BEDTIME omeprazole 40 mg capsule,delayed release(DR/EC) 40 mg PO BID metoprolol succinate 50 mg tablet extended release 24 hr 25 mg PO BID aspirin [Aspir-81] 81 mg Tablet,Delayed Release (Dr/Ec) 81 mg PO BEDTIME nitroglycerin [Nitrostat] 0.4 mg Tablet, Sublingual 0.4 mg SUBLINGUAL Q5M PRN (Reason: Chest Pain) Rx Instructions: do not exceed 3 doses per episode albuterol sulfate 90 mcg/actuation HFA aerosol inhaler 2 puff INHALATION Q4H PRN (Reason: Shortness Of Breath) Breztri Aerosphere 160-9-4.8 mcg/actuation HFA aerosol inhaler 2 inh INHALATION BID PRN (Reason: unknown) furosemide 40 mg tablet 40 mg PO QAM Discharge Orders: Discharge Order (Routine); Ordered 12/10/22 Ordered By: Sabrina Almaguer Referrals: Magdiel Amador MD [Primary Care Provider] - 1 week Discharge Diet: Usual diet Discharge Activity: Resume usual activity Patient Instructions: Dialysis Diet (DC), Hemodialysis (DC), Opioid Safety Discharge Attestations Time Spent in Discharge Care*: greater than 30 min Status at Discharge: Cognitive status at discharge: cognitively intact, Behavioral status at discharge: cooperative, Quality Metrics Clinical Quality Measures [ No reported AMI, CVA or VTE this stay] Coding Level of Care Code Acute Code for Chg Fwd Diagnoses Partial small bowel obstruction K56.600 Left lower lobe pneumonia J18.9 End stage renal disease on dialysis N18.6; Z99.2 Acute on chronic diastolic CHF (congestive heart failure) I50.33 Generalized weakness R53.1 COPD (chronic obstructive pulmonary disease) J44.9 Anemia D64.9 Anemia type: unspecified type Coronary artery disease I25.10 Associated angina: without angina Coronary Disease-Associated Artery/Lesion type: [place] artery [place] vs. transplanted heart: [place] heart Diabetes E11.9 Essential hypertension I10
[2022-12-10 11:06] VITALS: BP 151/53; PULSE 63; RESP 18; TEMP 36.2; O2SAT 96
--- NOTE | 2022-12-10 11:17 | PC.NURSE ---
Discharge instructions provided to daughter and patient. NO questions at this time. Patient to private vehicle via wheelchair by staff with daughter at side.
== END 2022-12-10 11:18 | disposition home or self-care (01) | DRG 388 ==
LOC: ER 13:57 → MEDSURG 16:12
PROVIDERS: Hospitalist; Admitting Provider Internal Medicine; Emergency Provider Family Medicine; PCP Family Medicine; Visit Provider Student in an Organized Health Care Education/Training Program
DX: K56.600 Partial intestinal obstruction, unspecified as to cause (principal); I50.33 Acute on chronic diastolic (congestive) heart failure; J18.9 Pneumonia, unspecified organism; N18.6 End stage renal disease; J44.0 Chronic obstructive pulmonary disease with (acute) lower respiratory infection; I13.2 Hypertensive heart and chronic kidney disease with heart failure and with stage 5 chronic kidney disease, or end stage renal disease; I44.2 Atrioventricular block, complete; Z91.158 Patient's noncompliance with renal dialysis for other reason; I25.10 Atherosclerotic heart disease of native coronary artery without angina pectoris; E11.22 Type 2 diabetes mellitus with diabetic chronic kidney disease; Z99.2 Dependence on renal dialysis; I48.91 Unspecified atrial fibrillation; I35.0 Nonrheumatic aortic (valve) stenosis; Z95.0 Presence of cardiac pacemaker; D63.1 Anemia in chronic kidney disease; B96.89 Other specified bacterial agents as the cause of diseases classified elsewhere; B95.61 Methicillin susceptible Staphylococcus aureus infection as the cause of diseases classified elsewhere; K21.9 Gastro-esophageal reflux disease without esophagitis; Z87.891 Personal history of nicotine dependence
CPT/HCPCS: 36415; 36416; 36430; 71045; 71250; 73030; 74018; 74176; 80053; 80069; 82962; 83690; 83735; 84100; 84145; 85025; 86140; 86706; 86850; 86900; 86920; 87040; 87070; 87186; 87205; 87340; 87635; 90471; 90686; 90935; 93005; 94640; 96365; 96372; 96375; 97161; 97165; 97530; 99285; C9113; G0378; J1644; J1815; J1956; J2405; J2543; J3490; J7626; J8597; P9016; Q0162; Q3014; Q4081

== ENCOUNTER 2023-02-26 10:00 | Observation (INO) | payer MEDICARE, MEDICAID, SELFPAY ==
[2023-02-26] VITALS (11 sets, daily range): BP systolic 99–152; BP diastolic 41–74; PULSE 62–88; RESP 16–18; TEMP 36.7–36.9; O2SAT 90–100; BMI 20.8
--- NOTE | 2023-02-26 10:18 | CTR_ITS ---
PROCEDURE INFORMATION: Exam: CT Lumbar Spine Without Contrast Exam date and time: 02/26/2023 10:48 AM Age: 88 years old Clinical indication: Prior surgery; Surgery date: 6+ months; Surgery type: Tubal; Patient HX: C/O low back pain. No recent injury. TECHNIQUE: Imaging protocol: Computed tomography of the lumbar spine without contrast. Radiation optimization: All CT scans at this facility use at least one of these dose optimization techniques: automated exposure control; mA and/or kV adjustment per patient size (includes targeted exams where dose is matched to clinical indication); or iterative reconstruction. COMPARISON: [place] [id number] 12/04/2022 4:07 PM RADIATION DOSE METRICS: Total DLP (mGy-cm): 403.38 FINDINGS: Bones/joints: Osteopenia. Stable moderate L1 compression fracture deformity with stable retropulsion of the proximally 3 mm. No new fracture evident. Stable retrolisthesis of L5 on S1 by 5 mm. Stable minimal anterolisthesis of L4 on L5. Moderate L5-S1 degenerative disc disease. Remaining disc levels are intact. Diffuse moderate bilateral facet arthropathy. Mild spinal stenosis at L3-4 secondary to mild disc bulge and facet arthropathy. Pleural spaces: Small bilateral pleural effusions. Kidneys and ureters: Bilateral renal cortical atrophy, left more severe than right. Reproductive: 2.5 x 1.8 cm right pelvic cystic lesion on series 4, image [address] also present on prior CT suggestive of an ovarian lesion based on its relationship to the ovarian vascular pedicle. Should be noted that no right ovarian abnormality is seen prior ultrasound of 09/10/2022. Soft tissues: Unremarkable. CT/CT lumbar spine wo con* [id number] IMPRESSION: 1. No acute pathology or significant change. Moderate L1 compression fracture and features of degenerative disc and facet disease again noted. 2. Stable right pelvic cystic lesion measuring up to 2.5 cm most likely ovarian in origin; ultrasound recommended as initial step in further assessment. 3. Small bilateral pleural effusions.
--- NOTE | 2023-02-26 10:26 | W.ED.BACK ---
HPI - Back Pain/Injury General: Chief Complaint: Back Pain/Injury Stated Complaint: lower back pain Time Seen by Provider: 02/26/23 10:12 History of Present Illness: 88-year-old female with a history of aortic stenosis, end-stage renal disease on dialysis, COPD, congestive heart failure, diabetes and hypertension who presents to the emergency room with low back pain. She says she awoke with this this morning. No known trauma. She says pain radiates into both hips. It is located in her low lumbar spine. The pain was such that she could not even stand and ambulance had to be called. She has no focal motor deficits. No paresthesias. No saddle numbness. No urinary or bowel incontinence or retention. No known fevers. Review of Systems Narrative: Constitutional symptoms: Negative except as documented in HPI. Skin symptoms: Negative except as documented in HPI. Eye symptoms: Negative except as documented in HPI. ENMT symptoms: Negative except as documented in HPI. Respiratory symptoms: Negative except as documented in HPI. Cardiovascular symptoms: Negative except as documented in HPI. Gastrointestinal symptoms: Negative except as documented in HPI. Genitourinary symptoms: Negative except as documented in HPI. Musculoskeletal symptoms: Negative except as documented in HPI. Neurologic symptoms: Negative except as documented in HPI. Psychiatric symptoms: Negative except as documented in HPI. Endocrine symptoms: Negative except as documented in HPI. [facility] ED PFSH: Medical History Anemia Carotid stenosis COPD (chronic obstructive pulmonary disease) Coronary artery disease Cough Dark stools Diabetes Diastolic congestive heart failure Dysphagia End stage renal disease Esophageal dysmotility Essential hypertension Exertional dyspnea Gastritis GERD (gastroesophageal reflux disease) Hematochezia Hiatal hernia Intermittent atrial fibrillation Interstitial lung disease Recurrent aspiration events Severe aortic stenosis Third degree heart block Status post pacemaker placement Surgical History Hemodialysis access site with arteriovenous graft History of laparoscopic cholecystectomy History of permanent cardiac pacemaker placement History of tubal ligation S/P hemodialysis catheter insertion Status post colonoscopy (12/30/19) Family History Mother Cancer Lung cancer Father Diabetes Other CAD (coronary artery disease) Denies family history of Anesthesia complication Bleeding disorder Social History Smoking and tobacco/nicotine status: former use of tobacco/nicotine Quit status (tobacco/nicotine): has quit using Year quit tobacco: 1983 Former quit date comment: 2ppd x 19 years Alcohol intake: never Substance/Drug Use: never Physical Exam Narrative: EXAM NARRATIVE: General: Alert, patient is in some distress. She is writhing in pain. Skin: Warm, dry. Head: Normocephalic, atraumatic. Neck: Supple, trachea midline. Eye: Extraocular movements are intact. Ears, nose, mouth and throat: mucosa moist. Cardiovascular: Regular, Normal peripheral perfusion. Respiratory: Lungs are clear to auscultation, respirations are non-labored, breath sounds are equal, Symmetrical chest wall expansion. Gastrointestinal: Soft, Nontender, Non distended, Normal bowel sounds. Musculoskeletal: Normal ROM, no deformity. Back: No focal bony tenderness. No step-offs. She does have some tenderness of the paraspinal muscles. Neurological: Alert and oriented to person, place, time, and situation, No focal neurological deficit observed. Psychiatric: Cooperative, appropriate mood & affect. Course Vital Signs: Vital signs: Vital Signs Temperature 98.4 F 02/26/23 10:04 Pulse Rate 77 02/26/23 10:25 Respiratory Rate 18 02/26/23 10:25 Blood Pressure 143/50 02/26/23 10:25 Pulse Oximetry 95 02/26/23 10:25 Oxygen Delivery Me thod Nasal Cannula 02/26/23 10:25 Oxygen Flow Rate 3 02/26/23 10:25 MDM - Back Pain/Injury Medical Decision Making Concern for sciatica, UTI/pyelonephritis. CT of the L-spine was ordered. Also basic lab work was ordered and a urinalysis. CT showed no acute process. She does have a UTI given her symptoms and the fact that she is a dialysis patient giving IV Rocephin here and admitting the patient to the hospital. Labs 02/26/23 10:46 02/26/23 11:40 Radiology Impressions Lumbar Spine CT 02/26/23 10:18 IMPRESSION: 1. No acute pathology or significant change. Moderate L1 compression fracture and features of degenerative disc and facet disease again noted. 2. Stable right pelvic cystic lesion measuring up to 2.5 cm most likely ovarian in origin; ultrasound recommended as initial step in further assessment. 3. Small bilateral pleural effusions. Laboratory Results WBC 6.99 10^3/uL (3.29-11.43) 02/26/23 10:46 RBC 3.66 10^6/uL (3.85-5.65) L 02/26/23 10:46 Hgb 10.90 g/dL (11.27-16.99) L 02/26/23 10:46 Hct 34.7 % (36-47) L 02/26/23 10:46 MCV 94.8 fl (85-98) 02/26/23 10:46 MCH 29.8 pg (27-33) 02/26/23 10:46 MCHC 31.4 g/dL (30-55) 02/26/23 10:46 RDW 15.8 % (12.1-15.1) H 02/26/23 10:46 Plt Count 208 10^3/cmm (157-399) 02/26/23 10:46 MPV 11.0 fL (7.4-10.4) H 02/26/23 10:46 Neut % (Auto) 77.7 % 02/26/23 10:46 Lymph % (Auto) 12.4 % 02/26/23 10:46 [place] % (Auto) 7.0 % 02/26/23 10:46 Eos % (Auto) 1.6 % 02/26/23 10:46 Baso % (Auto) 0.9 % 02/26/23 10:46 Neut # (Auto) 5.43 10^3/uL (1.8-7.7) 02/26/23 10:46 Lymph # (Auto) 0.9 10^3/uL (0.8-4.8) 02/26/23 10:46 [place] # (Auto) 0.5 10^3/uL (0.2-0.9) 02/26/23 10:46 Eos # (Auto) 0.1 10^3/uL (0.0-0.8) 02/26/23 10:46 Baso # (Auto) 0.1 10^3/uL (0.0-0.1) 02/26/23 10:46 Nucleated RBC % (auto) 0 % 02/26/23 10:46 Nucleated RBCs # 0.0 /100WBC 02/26/23 10:46 Sodium 138 mmol/L (136-145) 02/26/23 11:40 Potassium 3.8 mmol/L (3.5-5.1) 02/26/23 11:40 Chloride 99 mmol/L (98-107) 02/26/23 11:40 Carbon Dioxide 23 mmol/L (22-29) 02/26/23 11:40 Anion Gap 19.8 (5-19) H 02/26/23 11:40 BUN 41 mg/dL (8-23) H 02/26/23 11:40 Creatinine 7.2 mg/dL (0.5-0.9) H* 02/26/23 11:40 GFR Calculation Not Reportable 02/26/23 11:40 Glucose 113 mg/dL (65-115) 02/26/23 11:40 Calculated Osmolality 297 mOsm/kg (285-295) H 02/26/23 11:40 Calcium 8.4 mg/dL (8.5-10.5) L 02/26/23 11:40 Total Bilirubin 0.4 mg/dL (0.15-1.2) 02/26/23 11:40 AST 16 U/L (0-32) 02/26/23 11:40 ALT 10 U/L (0-33) 02/26/23 11:40 Alkaline Phosphatase 71 U/L (35-105) 02/26/23 11:40 Total Protein 6.3 g/dL (6.6-8.7) L 02/26/23 11:40 Albumin 3.5 g/dL (3.5-5.2) 02/26/23 11:40 Globulin 2.8 g/dL (1.3-4.6) 02/26/23 11:40 Urine Color Yellow (Yellow) 02/26/23 11:46 Urine Appearance Sl hazy (CLEAR) A 02/26/23 11:46 Urine pH 8 (5-7) H 02/26/23 11:46 Ur Specific [place] 1.010 (1.005-1.030) 02/26/23 11:46 Urine Protein 2+ (Negative) H 02/26/23 11:46 Urine Glucose (UA) Norm (Normal) 02/26/23 11:46 Urine Ketones Negative (Negative) 02/26/23 11:46 Urine Blood Neg (Negative) 02/26/23 11:46 Urine Nitrate Negative (Negative) 02/26/23 11:46 Urine Bilirubin Neg (Negative) 02/26/23 11:46 Prot Sulfosalicylic Acd Positive (Negative) 02/26/23 11:46 Urine Urobilinogen Neg mg/dL (Negative) 02/26/23 11:46 Ur Leukocyte Esterase 1+ (Negative) H 02/26/23 11:46 Urine RBC 0-4 /hpf (0-2) H 02/26/23 11:46 Urine WBC 15-25 /hpf (0-5) H 02/26/23 11:46 Ur Squamous Epith Cells 15-25 /hpf (0-5) H 02/26/23 11:46 Ur Transition Epith Cell 0-4 /hpf 02/26/23 11:46 Amorphous Sediment Not Reportable 02/26/23 11:46 Urine Bacteria Trace /hpf (NONE) 02/26/23 11:46 Coarse Granular Casts 0-4 /lpf H 02/26/23 11:46 Other Casts Wbc cast /lpf 02/26/23 11:46 BUN and creatinine are elevated as expected. BUN is 41 and creatinine is 7.2. She does not have hyperkalemia. Urinalysis is positive for leukocyte Estrace and she has 15-25 whites. Also some bacteria. XR interpretation done by ED provider, pending radiology final review Discharge Plan Discharge Patient Disposition: Admitted As Inpatient Clinical Impression: Urinary tract infection, Low back pain, End stage renal disease on dialysis Condition: Stable Prescriptions: No Action Tradjenta 5 mg tablet 5 mg PO QAM alprazolam 0.25 mg tablet 0.25 mg PO BEDTIME acetaminophen [Tylenol Extra Strength] 500 mg Tablet 500 - 1,000 mg PO Q6H PRN (Reason: Pain) calcium carbonate [Tums] 200 mg calcium (500 mg) Tablet,Chewable 200 mg PO DAILY PRN (Reason: Heartburn) RenaPlex-D 800 mcg-12.5 mg -2,000 unit tablet 1 tab PO QAM atorvastatin 40 mg Tablet 40 mg PO BEDTIME ropinirole 0.25 mg Tablet 0.25 mg PO BEDTIME C,E,zinc,copper [id number] 250-5-1 mg Capsule 1 cap PO QAM fluticasone propionate 50 mcg/actuation [place],Suspension 1 spray INTRANASAL DAILY PRN (Reason: Allergy Symptoms) Rx Instructions: administer into each nostril losartan 50 mg tablet 50 mg PO BID cyanocobalamin (vitamin B-12) [Vitamin B-12] 1,000 mcg Tablet 1,000 mcg PO QAM amlodipine 10 mg tablet 10 mg PO BEDTIME omeprazole 40 mg capsule,delayed release(DR/EC) 40 mg PO BID metoprolol succinate 50 mg tablet extended release 24 hr 25 mg PO DAILY aspirin 81 mg Tablet,Delayed Release (Dr/Ec) 81 mg PO BEDTIME nitroglycerin [Nitrostat] 0.4 mg Tablet, Sublingual 0.4 mg SUBLINGUAL Q5M PRN (Reason: Chest Pain) Rx Instructions: do not exceed 3 doses per episode albuterol sulfate 90 mcg/actuation HFA aerosol inhaler 2 puff INHALATION Q4H PRN (Reason: Shortness Of Breath) Breztri Aerosphere 160-9-4.8 mcg/actuation HFA aerosol inhaler 2 inh INHALATION BID PRN (Reason: unknown) furosemide 40 mg tablet 40 mg PO QAM Referrals: Magdiel Amador MD [Primary Care Provider] - Coding 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
[2023-02-26 10:54] LABS: Basophils # 0.1 10^3/uL (0.0-0.1); Basophils % 0.9 %; Eosinophils # 0.1 10^3/uL (0.0-0.8); Eosinophils % 1.6 %; Hematocrit 34.7 % (36-47); Lymphocytes # 0.9 10^3/uL (0.8-4.8); Lymphocytes % 12.4 %; Mean Corpuscular HGB Conc 31.4 g/dL (30-55); Mean Corpuscular Hemoglobin 29.8 pg (27-33); Mean Corpuscular Volume 94.8 fl (85-98); Monocytes # 0.5 10^3/uL (0.2-0.9); Neutrophils # 5.43 10^3/uL (1.8-7.7); Neutrophils % 77.7 %; Nucleated Red Blood Cells % 0 %; Platelet Count 208 10^3/cmm (157-399); Red Blood Count 3.66 10^6/uL (3.85-5.65); Red Cell Distribution Width 15.8 % (12.1-15.1); White Blood Count 6.99 10^3/uL (3.29-11.43)
[2023-02-26 12:04] LABS: Alanine Aminotransferase 10 U/L (0-33); Albumin Level 3.5 g/dL (3.5-5.2); Alkaline Phosphatase 71 U/L (35-105); Anion Gap 19.8 (5-19); Aspartate Amino Transferase 16 U/L (0-32); Blood Urea Nitrogen 41 mg/dL (8-23); Calcium 8.4 mg/dL (8.5-10.5); Carbon Dioxide 23 mmol/L (22-29); Chloride 99 mmol/L (98-107); Globulin 2.8 g/dL (1.3-4.6); Glucose 113 mg/dL (65-115); Osmolality Calculated 297 mOsm/kg (285-295); Potassium 3.8 mmol/L (3.5-5.1); Sodium 138 mmol/L (136-145); Total Bilirubin 0.4 mg/dL (0.15-1.2); Total Protein 6.3 g/dL (6.6-8.7)
[2023-02-26 12:37] LABS: Protein Urine 2+ (Negative); Urine Appearance SL Hazy (CLEAR); Urine Color Yellow (Yellow); pH Urine 8 (5-7)
[2023-02-26 12:38] LABS: Add Urine Culture? No; Bacteria Urine TRACE /hpf; Bilirubin Urine Neg (Negative); Blood Urine Neg (Negative); Coarse Granular Casts Urine 0-4 /lpf; Glucose Urine UA Norm (Normal); Ketones Urine Negative (Negative); Leukocyte Esterase Urine 1+ (Negative); Nitrate Urine Negative (Negative); Other Casts Urine WBC CAST /lpf; RBC Urine 0-4 /hpf (0-2); Squamous Epithelial Cell Urine 15-25 /hpf (0-5); Sulfosalicylic Acid Urine Positive (Negative); Transitional Epi Cells Urine 0-4 /hpf; Urobilinogen Urine Neg (Negative); WBC Urine 15-25 /hpf (0-5)
[2023-02-26] MEDS: ondansetron 2 mg/ML SDV 2 mL 4 MG IVP (13:11)
[2023-02-26] MEDS: LORazepam 2 mg/mL INJ 10 mL MDV 1 MG IV (13:17)
[2023-02-26] MEDS: cefTRIAXone 1,000 MG in sodium chloride 0.9% (plus) 50 ML 100 MG IV (13:24)
[2023-02-26] MEDS: dexamethasone 10 mg/mL INJ IVP (13:25)
--- NOTE | 2023-02-26 13:27 | PM.HP ---
Providers/Chief Complaint Primary Care Provider: Magdiel Amador MD Chief Complaint: lower back pain History of Present Illness Galina Saba is a 88 year old female with past medical history of left lower lobe pneumonia, partial small bowel obstruction, ESRD on dialysis, chronic diastolic heart failure, generalized weakness, COPD, anemia of chronic disease, coronary artery disease, atrial fibrillation, hypertension, aortic stenosis, interstitial lung disease, complete heart block status post pacemaker placement presented to the hospital for lumbar back pain. She woke up this morning with pain. No known trauma. The pain radiates into both hips. Located in lower lumbar spine. She could not stand and ambulance had to be called. No urinary or bowel incontinence or retention. No fever. Basic labs obtained were mostly unremarkable except BUN and creatinine being high secondary to ESRD. Lumbar CT was done which did not show any acute pathology. UA abnormal suggestive of UTI. Patient given Rocephin in ER. She missed dialysis today. Has been feeling more short of breath than normal. Medications/Allergies Home Medications Medication Instructions Recorded Confirmed Last Taken Type linagliptin 5 mg tablet (Tradjenta) 5 mg PO QAM 04/15/19 02/26/23 02/25/23 History vit B,C-folic ac 800 mcg-zinc 12.5 1 tab PO QAM 06/16/19 02/26/23 02/25/23 History mg-selen-D3 2,000 unit-vit E tablet (RenaPlex-D) atorvastatin 40 mg tablet 40 mg PO BEDTIME 11/17/19 02/26/23 02/25/23 History acetaminophen 500 mg tablet 500 - 1,000 mg PO Q6H PRN Pain 07/31/20 02/26/23 06/26/22 18:00 History (Tylenol Extra Strength) calcium carbonate 200 mg calcium 200 mg PO DAILY PRN Heartburn 07/31/20 02/26/23 12/03/22 History (500 mg) chewable tablet (Tums) fluticasone propionate 50 1 spray intranasal DAILY PRN 07/30/21 02/26/23 12/03/22 History mcg/actuation nasal Allergy Symptoms spray,suspension vit C,E,zinc,copper-ycjln2p 250 1 cap PO QAM 07/30/21 02/26/23 02/25/23 History mg-lutein 5 mg-zeaxanthin 1 mg capsule amlodipine 10 mg tablet 10 mg PO BEDTIME 10/11/21 02/26/23 02/25/23 History cyanocobalamin (vitamin B-12) 1,000 mcg PO QAM 10/11/21 02/26/23 02/25/23 History 1,000 mcg tablet (Vitamin B-12) omeprazole 40 mg capsule,delayed 40 mg PO BID 10/11/21 02/26/23 02/25/23 History release ropinirole 0.25 mg tablet 0.25 mg PO BEDTIME 05/13/22 02/26/23 02/25/23 History alprazolam 0.25 mg tablet 0.25 mg PO BEDTIME 07/09/22 02/26/23 02/25/23 History losartan 50 mg tablet 50 mg PO BID 07/09/22 02/26/23 02/25/23 History albuterol sulfate 90 mcg/actuation 2 puff inhalation Q4H PRN 11/11/22 02/26/23 Unknown History aerosol inhaler Shortness Of Breath aspirin 81 mg tablet,delayed 81 mg PO BEDTIME 11/11/22 02/26/23 02/25/23 History release budesonide 160 mcg-glycopyr 9 2 inh inhalation BID PRN unknown 11/11/22 02/26/23 Unknown History mcg-formot 4.8 mcg/actuation HFA inhaler (Breztri Aerosphere) furosemide 40 mg tablet 40 mg PO QAM 11/11/22 02/26/23 02/25/23 History metoprolol succinate 50 mg 25 mg PO DAILY 11/11/22 02/26/23 02/25/23 History tablet,extended release 24 hr nitroglycerin 0.4 mg sublingual 0.4 mg sublingual Q5M PRN Chest 11/11/22 02/26/23 Unknown History tablet (Nitrostat) Pain Allergies Allergy/AdvReac Type Severity Reaction Status Date / Time lisinopril Allergy Unknown Unknown Verified 12/04/22 12:07 morphine AdvReac Intermediate ADR-Nausea Verified 12/04/22 12:07 PFSH Acute PFSH: Medical History Anemia Carotid stenosis COPD (chronic obstructive pulmonary disease) Coronary artery disease Cough Dark stools Diabetes Diastolic congestive heart failure Dysphagia End stage renal disease Esophageal dysmotility Essential hypertension Exertional dyspnea Gastritis GERD (gastroesophageal reflux disease) Hematochezia Hiatal hernia Intermittent atrial fibrillation Interstitial lung disease Recurrent aspiration events Severe aortic stenosis Third degree heart block Status post pacemaker placement Surgical History Hemodialysis access site with arteriovenous graft History of laparoscopic cholecystectomy History of permanent cardiac pacemaker placement History of tubal ligation S/P hemodialysis catheter insertion Status post colonoscopy (12/30/19) Family History Mother Cancer Lung cancer Father Diabetes Other CAD (coronary artery disease) Denies family history of Anesthesia complication Bleeding disorder Social History Smoking and tobacco/nicotine status: former use of tobacco/nicotine Quit status (tobacco/nicotine): has quit using Year quit tobacco: 1983 Former quit date comment: 2ppd x 19 years Alcohol intake: never Substance/Drug Use: never Vitals/I&O/Wt Last Vital Signs Temp 98.4 F 02/26/23 10:04 Pulse 77 02/26/23 10:25 Resp 18 02/26/23 10:25 BP 143/50 02/26/23 10:25 Pulse Ox 95 02/26/23 10:25 O2 Del Method Nasal Cannula 02/26/23 10:25 O2 Flow Rate 3 02/26/23 10:25 Weight last 48 hrs Weight 51.71 kg Physical Exam Narrative: General: No acute distress, on 6L NC HEENT: Normocephalic, atraumatic, EOMI, Cardio: RRR, normal S1-S2 Respiratory: B/L crackles upto mid lung pride GI: Abdomen soft nontender, some suprapubic tenderness may be present. Extremities: 1+ edema b/l Data 02/26/23 10:46 02/26/23 11:40 A&P Assessment and plan (1) Essential hypertension: (2) Acute on chronic diastolic CHF (congestive heart failure): (3) Severe aortic stenosis: (4) Coronary artery disease: Qualifiers: Associated angina: without angina Coronary Disease-Associated Artery/Lesion type: [place] artery [place] vs. transplanted heart: [place] heart Qualified Code(s): I25.10 - Atherosclerotic heart disease of [place] coronary artery without angina pectoris (5) Intermittent atrial fibrillation: (6) Diabetes: (7) End stage renal disease: (8) Urinary tract infection: (9) COPD (chronic obstructive pulmonary disease): (10) Interstitial lung disease: Plan #UTI #End-stage renal disease on dialysis #Anemia of chronic disease #History of COPD, not in exacerbation at this time #Acute on Chronic diastolic heart failure exacerbation #Hx of aortic stenosis ? Check urine culture, blood culture ? Continue Rocephin 1 g daily ? Check CT abdomen pelvis without contrast ? Continue aspirin, atorvastatin, metoprolol, losartan, furosemide, omeprazole, RenaPlex ? DuoNeb every 6 hours as needed ? Patient is not septic. Vital stable ? She is on 3 L nasal cannula at home at baseline however now on 6L saturating 92%. Saturations improve sitting up. ? Consult nephrology for continuation of dialysis - Check echo - Lasix 60 IV x1 now. check chest xray check bnp DVT prophylaxis: Heparin SQ twice daily Attestations Medical Necessity Statement*: Observation stay for altered mental status secondary to UTI. Diagnoses Essential hypertension I10 Acute on chronic diastolic CHF (congestive heart failure) I50.33 Severe aortic stenosis I35.0 Coronary artery disease involving [place] coronary artery of [place] heart without angina pectoris I25.10 Associated angina: without angina Coronary Disease-Associated Artery/Lesion type: [place] artery [place] vs. transplanted heart: [place] heart Intermittent atrial fibrillation I48.0 Diabetes E11.9 End stage renal disease N18.6 Urinary tract infection N39.0 COPD (chronic obstructive pulmonary disease) J44.9 Interstitial lung disease J84.9
--- NOTE | 2023-02-26 13:37 | PC.NURSE ---
NURSE ASSUMED CARE AT 1320
[2023-02-26 14:42] LABS: Ammonia 34 umol/L (11-51)
[2023-02-26] MEDS: heparin 5,000 unit/mL INJ 1 mL 5000 UNIT SUBCUT (14:43)
--- NOTE | 2023-02-26 15:17 | XRR_ITS ---
PROCEDURE INFORMATION: Exam: XR Chest Exam date and time: 02/26/2023 3:32 PM Age: 88 years old Clinical indication: Shortness of breath; Additional info: Pulm edema TECHNIQUE: Imaging protocol: Radiologic exam of the chest. Views: 1 view. COMPARISON: CR XR chest 1V portable [id number] 12/04/2022 9:11 PM FINDINGS: Tubes, catheters and devices: Interval removal of nasogastric tube.Tubes: Cardiac ICD/pacemaker. Lungs: Interval increase in pulmonary vascular congestion and interstitial coarsening. Minimal CP angle blunting. Pleural spaces: No pleural effusion or pneumothorax. Heart/Mediastinum: Increased cardiac silhouette. Bones/joints: Suture anchor right humerus and left axillary vascular stent. XR/XR chest 1V portable [id number] IMPRESSION: Interval increase in features of congestive failure and/or fluid overload with interstitial edema.
[2023-02-26] MEDS: acetaminophen 325 mg Tablet 650 MG PO (16:10)
[2023-02-26 16:25] LABS: Glucose Point of Care 128 mg/dL (70-110)
[2023-02-26] MEDS: FUROsemide 10 mg/mL SDV 10mL 60 MG IVP (16:43)
--- NOTE | 2023-02-26 17:20 | CTR_ITS ---
PROCEDURE INFORMATION: Exam: CT Abdomen And Pelvis Without Contrast Exam date and time: 02/27/2023 1:39 AM Age: 88 years old Clinical indication: Abdominal pain; Generalized TECHNIQUE: Imaging protocol: Computed tomography of the abdomen and pelvis without contrast. Radiation optimization: All CT scans at this facility use at least one of these dose optimization techniques: automated exposure control; mA and/or kV adjustment per patient size (includes targeted exams where dose is matched to clinical indication); or iterative reconstruction. COMPARISON: [place] [id number] 12/04/2022 4:07 PM RADIATION DOSE METRICS: Total DLP (mGy-cm): 349.15 FINDINGS: Tubes, catheters and devices: Pacemaker. Lungs: Chronic fibrotic changes in the lower lobes. Pleural spaces: Small bilateral pleural effusions, left larger than right. Heart: Cardiac valvular calcifications. Coronary arteries: Coronary artery calcifications. Liver: Normal. No mass. Gallbladder and bile ducts: Cholecystectomy. Although not dilated proximal small bowel loops prominent compared to the collapse more distal small bowel and a very mild degree of obstruction might be present. Pancreas: Normal. No ductal dilation. Spleen: Normal. No splenomegaly. Adrenal glands: Normal. No mass. Kidneys and ureters: Atrophic left kidney. Stomach and bowel: See Gallbladder and bile ducts finding. Appendix: No evidence of appendicitis. Intraperitoneal space: Unremarkable. No free air. No significant fluid collection. Vasculature: Unremarkable. No abdominal aortic aneurysm. Lymph nodes: Unremarkable. No enlarged lymph nodes. Urinary bladder: Unremarkable as visualized. Reproductive: Unremarkable as visualized. Bones/joints: Stable 50% L1 compression. Degenerative changes of the lumbar spine. Soft tissues: Unremarkable. CT/CT abdomen pelvis wo con [id number] IMPRESSION: 1. No significant change. 2. No acute abnormality. Although not dilated, proximal small bowel is of larger caliber than distal small bowel, and a mild partial small bowel obstruction may be present.
[2023-02-26] MEDS: pantoprazole DR 40 mg Tablet PO (17:46)
[2023-02-26] MEDS: losartan 50 mg Tablet PO (17:46)
--- NOTE | 2023-02-26 18:42 | P.CONIM_ITS ---
Providers/Reason For Consult 2 Consulting Physician/Specialty*: kommana/Nephrology Reason for Consult*: ESRD Attending Physician: Farheen Stark MD Primary Care Provider: Magdiel Amador MD History of Present Illness History of Present Illness Galina Saba is a 88 year old female 88-year-old female with past medical history of end-stage renal disease, CHF, COPD coronary artery disease A-fib hypertension status post pacemaker placement, on MWF schedule usually presented to the emergency department due to low back pain. Patient was supposed to get her dialysis today and was noted to be volume overloaded with pulmonary edema and cardiomegaly on chest x-ray. Lab data is significant for hemoglobin of 10.9, BUN 41 and creatinine 7.2. Review of Systems 2 Narrative: Other review of systems negative Medications/Allergies Home Medications Medication Instructions Recorded Confirmed Last Taken Type linagliptin 5 mg tablet (Tradjenta) 5 mg PO QAM 04/15/19 02/26/23 02/25/23 History vit B,C-folic ac 800 mcg-zinc 12.5 1 tab PO QAM 06/16/19 02/26/23 02/25/23 History mg-selen-D3 2,000 unit-vit E tablet (RenaPlex-D) atorvastatin 40 mg tablet 40 mg PO BEDTIME 11/17/19 02/26/23 02/25/23 History acetaminophen 500 mg tablet 500 - 1,000 mg PO Q6H PRN Pain 07/31/20 02/26/23 06/26/22 18:00 History (Tylenol Extra Strength) calcium carbonate 200 mg calcium 200 mg PO DAILY PRN Heartburn 07/31/20 02/26/23 12/03/22 History (500 mg) chewable tablet (Tums) fluticasone propionate 50 1 spray intranasal DAILY PRN 07/30/21 02/26/23 12/03/22 History mcg/actuation nasal Allergy Symptoms spray,suspension vit C,E,zinc,copper-hiajc4m 250 1 cap PO QAM 07/30/21 02/26/23 02/25/23 History mg-lutein 5 mg-zeaxanthin 1 mg capsule amlodipine 10 mg tablet 10 mg PO BEDTIME 10/11/21 02/26/23 02/25/23 History cyanocobalamin (vitamin B-12) 1,000 mcg PO QAM 10/11/21 02/26/23 02/25/23 History 1,000 mcg tablet (Vitamin B-12) omeprazole 40 mg capsule,delayed 40 mg PO BID 10/11/21 02/26/23 02/25/23 History release ropinirole 0.25 mg tablet 0.25 mg PO BEDTIME 05/13/22 02/26/23 02/25/23 History alprazolam 0.25 mg tablet 0.25 mg PO BEDTIME 07/09/22 02/26/23 02/25/23 History losartan 50 mg tablet 50 mg PO BID 07/09/22 02/26/23 02/25/23 History albuterol sulfate 90 mcg/actuation 2 puff inhalation Q4H PRN 11/11/22 02/26/23 Unknown History aerosol inhaler Shortness Of Breath aspirin 81 mg tablet,delayed 81 mg PO BEDTIME 11/11/22 02/26/23 02/25/23 History release budesonide 160 mcg-glycopyr 9 2 inh inhalation BID PRN unknown 11/11/22 02/26/23 Unknown History mcg-formot 4.8 mcg/actuation HFA inhaler (Breztri Aerosphere) furosemide 40 mg tablet 40 mg PO QAM 11/11/22 02/26/23 02/25/23 History metoprolol succinate 50 mg 25 mg PO DAILY 11/11/22 02/26/23 02/25/23 History tablet,extended release 24 hr nitroglycerin 0.4 mg sublingual 0.4 mg sublingual Q5M PRN Chest 11/11/22 02/26/23 Unknown History tablet (Nitrostat) Pain Allergies Allergy/AdvReac Type Severity Reaction Status Date / Time lisinopril Allergy Unknown Unknown Verified 12/04/22 12:07 morphine AdvReac Intermediate ADR-Nausea Verified 12/04/22 12:07 Current Medications Generic Name Dose Route Start Last Admin Trade Name Freq PRN Reason Stop Dose Admin Acetaminophen 650 mg 02/26/23 13:32 02/26/23 16:10 Acetaminophen 325 Mg Tablet PO 650 mg Q6H PRN Administration Mild/Mod Pain Or Temp >/= 101 Heparin Sodium (Porcine) 5,000 unit 02/26/23 13:45 02/26/23 14:43 Heparin 5,000 Unit/Ml Inj 1 Ml SUBCUT 5,000 unit Q12H ROSIBEL Administration Insulin Human Lispro 0 unit 02/26/23 18:00 02/26/23 17:44 Insulin Lispro 100 Unit/1 Ml SUBCUT Not Given WM&BEDTIME ROSIBEL Protocol Losartan Potassium 50 mg 02/26/23 18:00 02/26/23 17:46 Losartan 50 Mg Tablet PO 50 mg BID ROSIBEL Administration Pantoprazole Sodium 40 mg 02/26/23 18:00 02/26/23 17:[address] 40 Mg Tablet PO 40 mg BID ROSIBEL Administration PFSH Acute 2 PFSH: Medical History Anemia Carotid stenosis COPD (chronic obstructive pulmonary disease) Coronary artery disease Cough Dark stools Diabetes Diastolic congestive heart failure Dysphagia End stage renal disease Esophageal dysmotility Essential hypertension Exertional dyspnea Gastritis GERD (gastroesophageal reflux disease) Hematochezia Hiatal hernia Intermittent atrial fibrillation Interstitial lung disease Recurrent aspiration events Severe aortic stenosis Third degree heart block Status post pacemaker placement Surgical History Hemodialysis access site with arteriovenous graft History of laparoscopic cholecystectomy History of permanent cardiac pacemaker placement History of tubal ligation S/P hemodialysis catheter insertion Status post colonoscopy (12/30/19) Family History Mother Cancer Lung cancer Father Diabetes Other CAD (coronary artery disease) Denies family history of Anesthesia complication Bleeding disorder Social History Smoking and tobacco/nicotine status: former use of tobacco/nicotine Quit status (tobacco/nicotine): has quit using Year quit tobacco: 1983 Former quit date comment: 2ppd x 19 years Alcohol intake: never Substance/Drug Use: never Vitals/I&O/Wt Last Vital Signs Temp 98.2 F 02/26/23 17:25 Pulse 76 02/26/23 17:25 Resp 16 02/26/23 17:25 BP 151/53 02/26/23 17:46 Pulse Ox 98 02/26/23 17:25 O2 Del Method Nasal Cannula 02/26/23 17:25 O2 Flow Rate 6 02/26/23 17:25 02/26/23 02/26/23 02/26/23 06:59 14:59 22:59 Intake Total 120 / 120 Balance 120 / 120 Weight last 48 hrs Weight 51.766 kg Weight 51.71 kg Physical Exam 2 Narrative: Awake, alert no acute distress on 6 L O2 Data 02/26/23 10:46 02/26/23 11:40 A&P Assessment and plan (1) End stage renal disease: Plan 1. End-stage renal disease: On MWF schedule as outpatient, patient now presented with volume overload, plan for dialysis today 2 hypertension, restart home meds 3. Anemia: Hemoglobin at goal, monitor 4. History of A-fib 5. History of COPD 6. History of coronary artery disease and history of pacemaker Patient evaluated using audiovisual cart. Time spent 40 minutes Consult Attestations 2 Medical Necessity Statement: Per medicine Coding Level of Care Code Acute Code for Chg Fwd Diagnoses End stage renal disease N18.6
[2023-02-26] MEDS: acetaminophen 500 mg Tablet PO (18:52)
[2023-02-26 19:09] LABS: NT Pro B Type Natriuretic Pept 50058 pg/mL (0-450)
[2023-02-26 20:17] LABS: Glucose Point of Care 291 mg/dL (70-110)
[2023-02-26 21:07] LABS: Hepatitis B Surface Antigen Non-Reactive (Nonreactive)
[2023-02-26] MEDS: ropinirole 0.25 mg Tablet PO (21:16)
[2023-02-26] MEDS: amlodipine 10 mg Tablet PO (21:16)
[2023-02-26] MEDS: atorvastatin 40 mg Tablet PO (21:16)
[2023-02-26] MEDS: aspirin 81 mg EC Tablet PO (21:16)
[2023-02-26] MEDS: insulin lispro 100 unit/1 mL SUBCUT (22:00)
[2023-02-26] MEDS: oxyCODONE 5 mg IR Tab/Cap PO (22:05)
[2023-02-26 22:08] LABS: Hepatitis B Surface AB > 1000.0 (11.5-1000)
[2023-02-26] MEDS: epoetin alfa 1000 Unit/0.05 mL (ESRD) 20000 UNIT IVP (22:10)
[2023-02-27] VITALS (11 sets, daily range): BP systolic 113–148; BP diastolic 42–68; PULSE 60–71; RESP 16–18; TEMP 36.4–36.8; O2SAT 96–100
[2023-02-27] MEDS: heparin 5,000 unit/mL INJ 1 mL 5000 UNIT SUBCUT ×2 (01:29→14:46)
[2023-02-27] MEDS: oxyCODONE 5 mg IR Tab/Cap PO ×2 (04:09→21:26)
[2023-02-27 06:26] LABS: Hematocrit 33.4 % (36-47); Lymphocytes # 0.4 10^3/uL (0.8-4.8); Lymphocytes % 7.6 %; Mean Corpuscular HGB Conc 30.5 g/dL (30-55); Mean Corpuscular Hemoglobin 28.7 pg (27-33); Mean Corpuscular Volume 94.1 fl (85-98); Monocytes # 0.1 10^3/uL (0.2-0.9); Monocytes % 1.5 %; Neutrophils # 4.79 10^3/uL (1.8-7.7); Neutrophils % 90.7 %; Nucleated Red Blood Cells % 0 %; Platelet Count 186 10^3/cmm (157-399); Red Blood Count 3.55 10^6/uL (3.85-5.65); Red Cell Distribution Width 15.2 % (12.1-15.1); White Blood Count 5.28 10^3/uL (3.29-11.43)
[2023-02-27 06:49] LABS: Anion Gap 18.1 (5-19); Blood Urea Nitrogen 27 mg/dL (8-23); Carbon Dioxide 27 mmol/L (22-29); Chloride 98 mmol/L (98-107); Glucose 104 mg/dL (65-115); Magnesium 1.7 mg/dL (1.7-2.3); Osmolality Calculated 293 mOsm/kg (285-295); Potassium 4.1 mmol/L (3.5-5.1); Sodium 139 mmol/L (136-145)
[2023-02-27 07:06] LABS: Glucose Point of Care 98 mg/dL (70-110)
[2023-02-27] MEDS: pantoprazole DR 40 mg Tablet PO (10:07)
[2023-02-27] MEDS: metoprolol succinate ER (24 HR) 50 mg Tablet 25 MG PO (10:07)
[2023-02-27] MEDS: losartan 50 mg Tablet PO (10:07)
--- NOTE | 2023-02-27 10:40 | PM.PN ---
Subjective Subjective: reports back and hip pain denies N/V, NGT placed Vitals/I&O/Wt Last Vital Signs Temp 98.3 F 02/27/23 07:26 Pulse 66 02/27/23 08:00 Resp 18 02/27/23 08:00 BP 121/52 02/27/23 10:07 Pulse Ox 100 02/27/23 08:00 O2 Del Method Nasal Cannula 02/27/23 08:00 O2 Flow Rate 3 02/27/23 08:00 02/26/23 02/27/23 02/27/23 22:59 06:59 14:59 Intake Total 410 / 410 Balance 410 / 410 Weight last 48 hrs Weight 47.684 kg Weight 51.766 kg Weight 51.71 kg Physical Exam Const: COMMON NORMALS: no acute distress and alert Extremity: NARRATIVE EXTREMITY EXAM: AVF LUE no edema Neuro: SENSORIUM/ORIENTATION: Yes alert Data 02/27/23 05:49 02/27/23 05:49 CT Abd/Pel: Radiologist's impression: no contrast Adrenal glands: Normal. No mass. Kidneys and ureters: Atrophic left kidney. Other data: seen via telemedicine with assistance of RN at bedside A&P Assessment and plan (1) End stage renal disease on dialysis: (2) End stage renal disease: Plan 1. End-stage renal disease: On [facility] schedule as outpatient, presented with volume overload, received HD yesterday 2. Hypertension: presently well-controlled 3. Anemia: Hemoglobin at goal, monitor 4. History of A-fib 5. History of COPD 6. History of coronary artery disease and history of pacemaker Plan: HD tomorrow, 3K bath, 1000 ml UF, 3h. No IVs, BPs, blood drawns LUE Attestations Medical Necessity Statement*: per primary service Time Spent in Patient Care: 16 - 35 minutes Coding Level of Care Code Acute Code for Chg Fwd Diagnoses End stage renal disease on dialysis N18.6; Z99.2 End stage renal disease N18.6
--- NOTE | 2023-02-27 11:04 | PC.CHAP ---
Pastoral Care Encounter/Spiritual Assessment Type of Contact [] Declined reciprocating drill operator visit [] Patient/Family/Request visit [] Outpatient visit [] Follow-up visit [] Physician referral [] Code/Alert [x] Routine visit [] Staff referral [] Actively dying [] Patient sleeping [] Family support [] [] Out of room [] Palliative care [] [x] Receiving care in room [] Pre-surgical visit [] Trauma [] Long length of stay [] ICU visit [] Other: Relational/Emotional Strength [x] Patient feels connected with others/family/visitors/staff [] Distress [] Loneliness/isolation [] Abandonment Spirituality of Patient [x] Person of Fannie [] Attends Jehovah'S Witness of their Fannie [x] Believes in Prayer [] Reads Bible or Lutheran materials [] There are Spiritual issues to be addressed Formulator Interventions [x] Prayer [x] Active listening [x] Non-anxious presence [x] Spiritual/emotional support [] Crisis/trauma care [x] Spiritual counseling [] Bereavement support [] Provided bereavement packet [] Provided Bible/devotional materials [] Provided toy/stuffed animal, coloring book to patient or family member [] Provided Communion [] Anointing/[place] [] Salvation [x] Completed spiritual assessment [] Other: Impact on Illness or Injury [] Angry [] Fearful [] Anxious [] Often cries [] Exhaustion [] Unable to work [] Unable to attend taoist [] Unable to walk/stand [] Unable to read [] Unable to drive [] Unable to eat/drink [] Unable to sleep [] Unable to be with family [] Patient intubated [] Other: Summary senior +1 they are waiting on tests negative health they well her home at some point Time spent with patient 10 mins
[2023-02-27 11:38] LABS: Glucose Point of Care 134 mg/dL (70-110)
--- NOTE | 2023-02-27 12:25 | PM.PN ---
Subjective Subjective: seen today hip pain is better ABD CT reviewed. Possible mild SBO patient passing gas and tolerating diet got dialyzed overnight, O2 back to baseline Vitals/I&O/Wt Last Vital Signs Temp 98.2 F 02/27/23 11:18 Pulse 60 02/27/23 11:18 Resp 17 02/27/23 11:18 BP 135/57 02/27/23 11:18 Pulse Ox 100 02/27/23 11:18 O2 Del Method Nasal Cannula 02/27/23 11:18 O2 Flow Rate 3 02/27/23 11:18 02/26/23 02/27/23 02/27/23 22:59 06:59 14:59 Intake Total 410 / 410 Balance 410 / 410 Weight last 48 hrs Weight 47.684 kg Weight 51.766 kg Weight 51.71 kg Physical Exam Narrative: General: No acute distress, on 3L NC HEENT: Normocephalic, atraumatic, EOMI, Cardio: RRR, normal S1-S2 Respiratory: Clear to auscultation b/l GI: Abdomen soft nontender, some suprapubic tenderness may be present. Extremities: 1+ edema b/l Data 02/27/23 05:49 02/27/23 05:49 A&P Assessment and plan (1) Essential hypertension: (2) Acute on chronic diastolic CHF (congestive heart failure): (3) Severe aortic stenosis: (4) Coronary artery disease: Qualifiers: Associated angina: without angina Coronary Disease-Associated Artery/Lesion type: [place] artery [place] vs. transplanted heart: [place] heart Qualified Code(s): I25.10 - Atherosclerotic heart disease of [place] coronary artery without angina pectoris (5) Intermittent atrial fibrillation: (6) Diabetes: (7) End stage renal disease: (8) Urinary tract infection: (9) COPD (chronic obstructive pulmonary disease): (10) Interstitial lung disease: Plan #UTI #End-stage renal disease on dialysis #Anemia of chronic disease #History of COPD, not in exacerbation at this time #Acute on Chronic diastolic heart failure exacerbation #Hx of aortic stenosis #POssible small Bowel obstruction ? Check urine culture, blood culture ? Continue Rocephin 1 g daily ? Check CT abdomen pelvis without contrast.No acute abnormality. Although not dilated, proximal small bowel is of larger caliber than distal small bowel, and a mild partial small bowel obstruction may be present. Will make NPO and place NG tube ? Continue aspirin, atorvastatin, metoprolol, losartan, furosemide, omeprazole, RenaPlex ? DuoNeb every 6 hours as needed ? Patient is not septic. Vital stable ? She is on 3 L nasal cannula at home at baseline. Had dialysis last night ? Consult nephrology for continuation of dialysis - Check echo pending CXR at admission showed pulm edema BNP 50,000 DVT prophylaxis: Heparin SQ twice daily Daughter updated at bedside Attestations Medical Necessity Statement*: Inpatient for possible small bowel obstruction, UTI Diagnoses Essential hypertension I10 Acute on chronic diastolic CHF (congestive heart failure) I50.33 Severe aortic stenosis I35.0 Coronary artery disease involving [place] coronary artery of [place] heart without angina pectoris I25.10 Associated angina: without angina Coronary Disease-Associated Artery/Lesion type: [place] artery [place] vs. transplanted heart: [place] heart Intermittent atrial fibrillation I48.0 Diabetes E11.9 End stage renal disease N18.6 Urinary tract infection N39.0 COPD (chronic obstructive pulmonary disease) J44.9 Interstitial lung disease J84.9
--- NOTE | 2023-02-27 12:27 | USCV_ITS ---
Galina Saba Age: 88 Gender: F : 1935 Exam Date: 02/27/2023 13:34 Ordering Phys: Farheen Stark MD Technologist: Doe Donovan [place] [facility] [place]: hf as BP: 105 / 76 HR: 52 Rhythm: Sinus Technical Quality: Adequate MEASUREMENTS (Male / Female) Normal Values 2D ECHO LV Diastolic Diameter PLAX 3.2 cm 4.2 - 5.9 / 3.9 - 5.3 cm LV Systolic Diameter PLAX 2.5 cm IVS Diastolic Thickness 1.0 cm 0.6 - 1.0 / 0.6 - 0.9 cm IVS Systolic Thickness 1.0 cm LVPW Diastolic Thickness 1.0 cm 0.6 - 1.0 / 0.6 - 0.9 cm LVPW Systolic Thickness 1.2 cm LVOT Diameter 1.9 cm LV Ejection Fraction 2D Teich 48.6 % LV Ejection Fraction MOD 2C 52.3 % LV Ejection Fraction 2C AL 53.3 % LA Diameter 4.2 cm IVC Diameter 1.6 cm M-MODE Aortic Annulus Diameter 2.9 cm LA Ao Ratio MM 1.5 MV E Point Septal Separation 1.5 cm DOPPLER AV Peak Velocity 214.0 cm/s LVOT Peak Velocity 103.0 cm/s AV Area Cont Eq vti 1.5 cm squared AV Area Cont Eq pk 1.4 cm squared MV Area PHT 5.0 cm squared Mitral E to A Ratio 1.2 MV E' Velocity 94.0 cm/s Mitral E to MV E' Ratio 18.0 Mitral E to LV E' Lateral Ratio 18.5 Mitral E to LV E' Septal Ratio 17.4 TR Peak Velocity 297.7 cm/s TR Peak Gradient 35.4 mmHg TV Peak E Velocity 86.0 cm/s Right Atrial Pressure 3.0 mmHg Pulmonary Artery Systolic Pressu 38.4 mmHg RV Acceleration Time 0.2 s FINDINGS Left Ventricle Hypokinetic basal inferior wall segment.moderate left ventricular hypertrophy. Grade III/IV diastolic dysfunction (restrictive filling) . Abnormal septal motion consistent with conduction abnormality. severely elevated filling pressures. Right Ventricle The right ventricle is normal in size and function. Right Atrium Moderately increased right atrial size. Left Atrium Moderately increased left atrial size. Mitral Valve Thickened mitral valve. Moderate mitral annular calcification. Moderate mitral valve regurgitation. Aortic Valve Mild to moderate aortic valve stenosis Tricuspid Valve [id number] tricuspid valve regurgitation. Pulmonic Valve No gross abnormalities noted Pericardium No pericardial effusion. Aorta Normal aortic annulus size. IVC Normal inferior vena cava. CONCLUSIONS Normal LV size with a slightly diminished ejection fraction of 52% Hypokinetic basal inferior wall segment. Moderate left ventricular hypertrophy. Grade III/IV diastolic dysfunction (restrictive filling pattern), severely elevated filling pressures. Moderate biatrial enlargement Thickened mitral valve. Moderate mitral annular calcification. Moderate mitral valve regurgitation. Mild to moderate aortic valve stenosis. Djot-ev-[id number] tricuspid valve regurgitation. Estimated pulmonary artery peak systolic pressure 38 mmHg38 mm Hg. Aortic valve sclerosis. There is no pericardial effusion. There are no intracardiac masses. Compared to the study from 05/14/2022, the aortic valve appears to be less severe with the a slight drop in the LV ejection fraction Dr Alessandro Carney MD FACC (Electronically Signed) Final Date: 27 February 2023 15:50 S
[2023-02-27] MEDS: cefTRIAXone 1,000 MG in sodium chloride 0.9% (plus) 50 ML 100 MG IV (14:45)
--- NOTE | 2023-02-27 15:18 | XR_ITS ---
WS: [id number] Portable AP upright chest, 02/27/2023 Clinical Data: NG placement Comparison: Portable chest, 02/26/2023 Findings: The nasogastric tube appears to be within the esophagus and ends in the body of the stomach . Impression: Satisfactory insertion of nasogastric tube.
[2023-02-27] MEDS: lidocaine 5% Patch 1 PATCH TOPICAL (16:45)
[2023-02-27 16:52] LABS: Glucose Point of Care 103 mg/dL (70-110)
[2023-02-27 20:56] LABS: Glucose Point of Care 123 mg/dL (70-110)
[2023-02-27] MEDS: ropinirole 0.25 mg Tablet PO (21:25)
[2023-02-27] MEDS: amlodipine 10 mg Tablet PO (21:25)
[2023-02-27] MEDS: atorvastatin 40 mg Tablet PO (21:25)
[2023-02-27] MEDS: aspirin 81 mg EC Tablet PO (21:26)
[2023-02-28] VITALS (8 sets, daily range): BP systolic 118–159; BP diastolic 45–69; PULSE 59–89; RESP 16–18; TEMP 36.3–36.8; O2SAT 93–100
[2023-02-28] MEDS: heparin 5,000 unit/mL INJ 1 mL 5000 UNIT SUBCUT ×2 (01:39→17:48)
[2023-02-28 05:47] LABS: Basophils % 0.6 %; Eosinophils % 0.6 %; Hematocrit 34.3 % (36-47); Lymphocytes # 1.5 10^3/uL (0.8-4.8); Lymphocytes % 21.9 %; Mean Corpuscular HGB Conc 30.9 g/dL (30-55); Mean Corpuscular Volume 93.7 fl (85-98); Mean Platelet Volume 11.7 fL (7.4-10.4); Monocytes # 0.7 10^3/uL (0.2-0.9); Monocytes % 9.8 %; Neutrophils # 4.64 10^3/uL (1.8-7.7); Neutrophils % 66.8 %; Nucleated Red Blood Cells % 0 %; Platelet Count 209 10^3/cmm (157-399); Red Blood Count 3.66 10^6/uL (3.85-5.65); Red Cell Distribution Width 15.5 % (12.1-15.1); White Blood Count 6.94 10^3/uL (3.29-11.43)
[2023-02-28 06:06] LABS: Anion Gap 17.6 (5-19); Blood Urea Nitrogen 43 mg/dL (8-23); Calcium 8.9 mg/dL (8.5-10.5); Carbon Dioxide 26 mmol/L (22-29); Chloride 97 mmol/L (98-107); Glucose 104 mg/dL (65-115); Magnesium 1.8 mg/dL (1.7-2.3); Osmolality Calculated 293 mOsm/kg (285-295); Potassium 4.6 mmol/L (3.5-5.1); Sodium 136 mmol/L (136-145)
[2023-02-28 06:39] LABS: Glucose Point of Care 95 mg/dL (70-110)
--- NOTE | 2023-02-28 08:55 | PC.CHAP ---
Pastoral Care Encounter/Spiritual Assessment Type of Contact [] Declined work station support specialist visit [] Patient/Family/Request visit [] Outpatient visit [] Follow-up visit [] Physician referral [] Code/Alert [x] Routine visit [] Staff referral [] Actively dying [] Patient sleeping [x] Family support [] [] Out of room [] Palliative care [] [] Receiving care in room [] Pre-surgical visit [] Trauma [] Long length of stay [] ICU visit [] Other: Relational/Emotional Strength [x] Patient feels connected with others/family/visitors/staff [] Distress [] Loneliness/isolation [] Abandonment Spirituality of Patient [x] Person of Fannie [x] Attends Yarsani of their Fannie [x] Believes in Prayer [x] Reads Bible or Jehovah'S Witness materials [] There are Spiritual issues to be addressed Prom Burn Off Operator Interventions [x] Prayer [x] Active listening [] Non-anxious presence [x] Spiritual/emotional support [] Crisis/trauma care [] Spiritual counseling [] Bereavement support [] Provided bereavement packet [] Provided Bible/devotional materials [] Provided toy/stuffed animal, coloring book to patient or family member [] Provided Communion [] Anointing/[place] [] Salvation [x] Completed spiritual assessment [] Other: Impact on Illness or Injury [] Angry [] Fearful [] Anxious [] Often cries [] Exhaustion [] Unable to work [] Unable to attend evangelical [] Unable to walk/stand [] Unable to read [] Unable to drive [] Unable to eat/drink [] Unable to sleep [] Unable to be with family [] Patient intubated [] Other: Summary Time spent with patient 10 min
[2023-02-28] MEDS: losartan 50 mg Tablet PO ×2 (08:57→17:48)
[2023-02-28] MEDS: metoprolol succinate ER (24 HR) 50 mg Tablet 25 MG PO (08:58)
[2023-02-28] MEDS: pantoprazole DR 40 mg Tablet PO ×2 (08:58→17:48)
[2023-02-28] MEDS: lidocaine 5% Patch 1 PATCH TOPICAL ×2 (09:03→21:58)
--- NOTE | 2023-02-28 13:24 | PC.SOCIAL ---
IMM UPdate pg 2 of IMM updated and reviewed w/ patient and her daughter. Copy provided and copy dated, initialed and placed in chart.
--- NOTE | 2023-02-28 14:15 | P.PN_ITS ---
Subjective 2 Subjective: Seen this morning. Abdominal pain is no longer there. She had NG tube placed yesterday.. Patient is passing gas. Patient's daughter states that patient is having tenesmus. When she got up she got dizzy and lightheaded. She has been having dyspnea and dizziness upon getting up from last few weeks. She does have known aortic stenosis. They have seen cardiology in [place] already. Echo shows LVEF slightly diminished at 52%. Hypokinetic basal inferior wall segment. Left ventricular hypertrophy present. Grade 3 x 4 diastolic dysfunction. He has seems to be less severe with a slight drop in LV ejection fraction. Vitals/I&O/Wt Last Vital Signs Temp 98.3 F 02/28/23 12:00 Pulse 59 L 02/28/23 12:00 Resp 16 02/28/23 12:00 BP 138/52 02/28/23 12:00 Pulse Ox 100 02/28/23 12:00 O2 Del Method Nasal Cannula 02/28/23 12:00 O2 Flow Rate 3 02/28/23 07:40 02/27/23 02/28/23 02/28/23 22:59 06:59 14:59 Intake Total 530 / 530 480 / 480 Balance 530 / 530 480 / 480 Weight last 48 hrs Weight 51.001 kg Weight 47.684 kg Weight 51.766 kg Physical Exam 2 Narrative: General: No acute distress, on 3L NC HEENT: Normocephalic, atraumatic, EOMI, Cardio: RRR, normal S1-S2 Respiratory: Clear to auscultation b/l GI: Abdomen soft nontender, some suprapubic tenderness may be present. Extremities: 1+ edema b/l Data 02/28/23 05:15 02/28/23 05:15 Micro: Microbiology 02/26/23 11:46 Urine Culture - Preliminary Urine,Clean Catch A&P Assessment and plan (1) Essential hypertension: (2) Acute on chronic diastolic CHF (congestive heart failure): (3) Severe aortic stenosis: (4) Coronary artery disease: Qualifiers: Associated angina: without angina Coronary Disease-Associated Artery/Lesion type: [place] artery [place] vs. transplanted heart: [place] heart Qualified Code(s): I25.10 - Atherosclerotic heart disease of [place] coronary artery without angina pectoris (5) Intermittent atrial fibrillation: (6) Diabetes: (7) End stage renal disease: (8) Urinary tract infection: (9) COPD (chronic obstructive pulmonary disease): (10) Interstitial lung disease: Plan #UTI #End-stage renal disease on dialysis #Anemia of chronic disease #History of COPD, not in exacerbation at this time #Acute on Chronic diastolic heart failure exacerbation #Hx of aortic stenosis #POssible small Bowel obstruction - RESOLVED ? Check urine culture, blood culture. Urine culture growing mixed barrera. ? Continue Rocephin 1 g daily. Switch to cefdinir x 7 days at discharge total counting from day of admission.. ? Check CT abdomen pelvis without contrast.No acute abnormality. Although not dilated, proximal small bowel is of larger caliber than distal small bowel, and a mild partial small bowel obstruction may be present. ? Continue aspirin, atorvastatin, metoprolol, losartan, furosemide, omeprazole, RenaPlex ? DuoNeb every 6 hours as needed ? Patient is not septic. Vital stable ? She is on 3 L nasal cannula at home at baseline. Had dialysis to admission. ? Consult nephrology for continuation of dialysis -ECHO complete. Normal LV size with a slightly diminished ejection fraction of 52% Hypokinetic basal inferior wall segment. Moderate left ventricular hypertrophy. Grade III/IV diastolic dysfunction (restrictive filling pattern), severely elevated filling pressures. Moderate biatrial enlargement Thickened mitral valve. Moderate mitral annular calcification. Moderate mitral valve regurgitation. Mild to moderate aortic valve stenosis. [id number]-[id number] tricuspid valve regurgitation. Estimated pulmonary artery peak systolic pressure 38 mmHg38 mm Hg. Aortic valve sclerosis. There is no pericardial effusion. There are no intracardiac masses. Compared to the study from 05/14/2022, the aortic valve appears to be less severe with the a slight drop in the LV ejection fraction -Discussed with cardiology over the phone. Cardiology reviewed the echocardiogram. There is nonsignificant aortic valve stenosis and we do not believe she is a candidate for TAVR at this time. Patient has been seen in [place] for the same. ? We will check a troponin series and if troponins are flat and delta is negative, patient may be able to go for outpatient stress test and be discharged safely from cardiac standpoint today. ? Discussed with general surgery as well who reviewed imaging study with me. There does not seem to be a bowel obstruction at this time. ? We will give patient lactulose 10 mg x 1 to help with a bowel movement at this time. ? Lungs are clear to auscultation and she is no longer an exacerbation of heart failure. ?Once troponins have been completed and EKGs have been reviewed patient may be able to discharge home today. I will update patient's daughter at bedside. DVT prophylaxis: Heparin SQ twice daily Attestations 2 Medical Necessity Statement*: Potential discharge later on today. Diagnoses Essential hypertension I10 Acute on chronic diastolic CHF (congestive heart failure) I50.33 Severe aortic stenosis I35.0 Coronary artery disease involving [place] coronary artery of [place] heart without angina pectoris I25.10 Associated angina: without angina Coronary Disease-Associated Artery/Lesion type: [place] artery [place] vs. transplanted heart: [place] heart Intermittent atrial fibrillation I48.0 Diabetes E11.9 End stage renal disease N18.6 Urinary tract infection N39.0 COPD (chronic obstructive pulmonary disease) J44.9 Interstitial lung disease J84.9 Time Spent (min) 45
--- NOTE | 2023-02-28 15:07 | P.PN_ITS ---
Subjective 2 Subjective: seen during dialysis feels better, NGT out, constipated Vitals/I&O/Wt Last Vital Signs Temp 98.3 F 02/28/23 12:00 Pulse 59 L 02/28/23 12:00 Resp 16 02/28/23 12:00 BP 138/52 02/28/23 12:00 Pulse Ox 100 02/28/23 12:00 O2 Del Method Nasal Cannula 02/28/23 12:00 O2 Flow Rate 3 02/28/23 07:40 02/28/23 02/28/23 02/28/23 06:59 14:59 22:59 Intake Total 480 / 480 Balance 480 / 480 Weight last 48 hrs Weight 51.001 kg Weight 47.684 kg Weight 51.766 kg Physical Exam 2 Const: COMMON NORMALS: no acute distress and alert Extremity: GENERAL: Yes AV fistula (left arm) and No edema Neuro: SENSORIUM/ORIENTATION: Yes alert Data 02/28/23 05:15 02/28/23 05:15 Micro: Microbiology 02/26/23 11:46 Urine Culture - Preliminary Urine,Clean Catch Other data: seen via telemedicine with assistance of RN at bedside A&P Assessment and plan (1) End stage renal disease on dialysis: (2) End stage renal disease: Plan 1. End-stage renal disease: continue HD MWF 2. Hypertension: presently well-controlled 3. Anemia: Hemoglobin at goal, monitor 4. History of A-fib 5. History of COPD 6. History of coronary artery disease and history of pacemaker Plan: HD today, 3K bath, 1000 ml UF, 3h. No IVs, BPs, blood drawns LUE Attestations 2 Medical Necessity Statement*: per primary service Time Spent in Patient Care: 16 - 35 minutes Coding Level of Care Code Acute Code for Chg Fwd Diagnoses End stage renal disease on dialysis N18.6; Z99.2 End stage renal disease N18.6
[2023-02-28 15:18] LABS: Glucose Point of Care 99 mg/dL (70-110)
--- NOTE | 2023-02-28 15:27 | ECG_ITS ---
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 Measurements Intervals [place] Rate: 68 P: -89 [place]: 178 QRS: -66 QRSD: 178 T: 56 QT: 486 QTc: 518 Interpretive Statements ELECTRONIC ATRIAL PACEMAKER ELECTRONIC VENTRICULAR PACEMAKER ABNORMAL RHYTHM ECG Compared to ECG 12/04/2022 12:14:00 No significant changes Electronically Signed On 02-28-2023 16:42:32 [employer] by Alessandro Carney M.D. [id number]
[2023-02-28 17:07] LABS: Troponin(5th) Baseline 58 ng/L (0-10)
[2023-02-28 17:32] LABS: Glucose Point of Care 82 mg/dL (70-110)
[2023-02-28] MEDS: lactulose oral liq 20 gm/30 mL UDC 10 GM PO (17:50)
[2023-02-28 19:31] LABS: Troponin 5 2HR 68.03 ng/L (0-10)
[2023-02-28 19:35] LABS: Troponin 5 2HR Delta 10.03 ABS# (0-10)
[2023-02-28 21:26] LABS: Glucose Point of Care 103 mg/dL (70-110)
[2023-02-28] MEDS: ropinirole 0.25 mg Tablet PO (21:58)
[2023-02-28] MEDS: amlodipine 10 mg Tablet PO (21:58)
[2023-02-28] MEDS: oxyCODONE 5 mg IR Tab/Cap PO (21:58)
[2023-02-28] MEDS: atorvastatin 40 mg Tablet PO (21:58)
[2023-02-28] MEDS: aspirin 81 mg EC Tablet PO (21:59)
[2023-02-28 22:53] LABS: Troponin 5 6HR 64.73 ng/L (0-10); Troponin 5 6HR Delta 6.73 ng/L (0-12)
[2023-03-01] VITALS: BP 145/72; PULSE 65; RESP 17; TEMP 36.9; O2SAT 99
[2023-03-01] MEDS: heparin 5,000 unit/mL INJ 1 mL 5000 UNIT SUBCUT (01:22)
[2023-03-01 04:00] VITALS: BP 133/56; PULSE 62; RESP 16; TEMP 36.8; O2SAT 96
[2023-03-01 06:40] LABS: Glucose Point of Care 93 mg/dL (70-110)
[2023-03-01 08:00] VITALS: BP 139/57; PULSE 69; RESP 17; TEMP 36.4; O2SAT 97
[2023-03-01 08:03] VITALS: PULSE 67; RESP 16; O2SAT 97
[2023-03-01 09:18] VITALS: BP 139/57
[2023-03-01] MEDS: losartan 50 mg Tablet PO (09:18)
[2023-03-01] MEDS: metoprolol succinate ER (24 HR) 50 mg Tablet 25 MG PO (09:19)
[2023-03-01] MEDS: pantoprazole DR 40 mg Tablet PO (09:19)
[2023-03-01] MEDS: lidocaine 5% Patch 1 PATCH TOPICAL (09:20)
--- NOTE | 2023-03-01 10:24 | PM.DCS ---
Discharge Providers Date of Admission: 02/27/23 12:29 Date of Discharge: March 01, 2023 Attending Provider at Admission: Farheen Stark MD Attending Provider at Discharge: Farheen Stark MD Primary Care Provider: Magdiel Amador MD Diagnoses at Discharge Discharge Diagnosis (1) End stage renal disease on dialysis: Status: Acute (2) End stage renal disease: Status: Acute Reason for Visit Reason for Visit: lower back pain Brief History: Galina Saba is a 88 year old female with past medical history of left lower lobe pneumonia, partial small bowel obstruction, ESRD on dialysis, chronic diastolic heart failure, generalized weakness, COPD, anemia of chronic disease, coronary artery disease, atrial fibrillation, hypertension, aortic stenosis, interstitial lung disease, complete heart block status post pacemaker placement presented to the hospital for lumbar back pain. She woke up this morning with pain. No known trauma. The pain radiates into both hips. Located in lower lumbar spine. She could not stand and ambulance had to be called. No urinary or bowel incontinence or retention. No fever. Basic labs obtained were mostly unremarkable except BUN and creatinine being high secondary to ESRD. Lumbar CT was done which did not show any acute pathology. UA abnormal suggestive of UTI. Patient given Rocephin in ER. She missed dialysis today. Has been feeling more short of breath than normal. Hospital Course Hospital Course During hospital stay patient was found to have mild partial small bowel obstruction and severely constipated. She was given NG tube for short period of time and stomach was decompressed. She immediately felt better. Thereafter she was given lactulose which helped constipation. Initially came in with severe pain radiating into both hips. After constipation was relieved that pain improved. Found to have UTI for which she was given ceftriaxone during hospital stay and discharged home on cefdinir. At admission she was also fluid overloaded secondary to missing dialysis and an acute exacerbation of heart failure. He was dialyzed and given extra dose of Lasix. Back to euvolemia and back to home baseline oxygen of 3 L. See progress notes for further details. Echo also reviewed. Hypokinetic basal inferior wall segments seen with slightly diminished EF of 52%. Discussed with cardiology in detail and reviewed the echo. Patient asymptomatic and not having any shortness of breath or chest pain. Recommend to do outpatient follow-up and do outpatient stress test. Patient agreeable. Valve stenosis is not significant enough for TAVR at this time as per cardiology. She is to follow-up with them outpatient along with [facility]. Discussed all of the above with the patient and she is wanting to go home at this point. She says her symptoms have also resolved. Physical Exam Narrative: General: No acute distress, on 3L NC HEENT: Normocephalic, atraumatic, EOMI, Cardio: RRR, normal S1-S2 Respiratory: Clear to auscultation b/l GI: Abdomen soft nontender, some suprapubic tenderness may be present. Extremities: 1+ edema b/l Discharge Data Studies Completed and Pending Completed Studies During Hospitalization Category Date Time Status CT abdomen pelvis wo con [id number] Routine Cat Scan 02/26/23 17:[address] lumbar spine wo con* [id number] Stat Cat Scan 02/26/23 10:18 Completed CXRP [XR chest 1V portable [id number]] Stat Exams 02/27/23 15:18 Completed XR chest 1V portable [id number] Urgent Exams 02/26/23 15:17 Completed CV. echo complete* [id number] Routine Ultrasound 02/27/23 12:27 Completed Pending at discharge Category Date Time Status Urine Culture Stat Lab 02/26/23 11:46 Results Radiology Impressions Lumbar Spine CT 02/26/23 10:18 IMPRESSION: 1. No acute pathology or significant change. Moderate L1 compression fracture and features of degenerative disc and facet disease again noted. 2. Stable right pelvic cystic lesion measuring up to 2.5 cm most likely ovarian in origin; ultrasound recommended as initial step in further assessment. 3. Small bilateral pleural effusions. Abdomen/Pelvis CT 02/26/23 17:20 IMPRESSION: 1. No significant change. 2. No acute abnormality. Although not dilated, proximal small bowel is of larger caliber than distal small bowel, and a mild partial small bowel obstruction may be present. Laboratory Results WBC 6.94 10^3/uL (3.29-11.43) 02/28/23 05:15 RBC 3.66 10^6/uL (3.85-5.65) L 02/28/23 05:15 Hgb 10.60 g/dL (11.27-16.99) L 02/28/23 05:15 Hct 34.3 % (36-47) L 02/28/23 05:15 MCV 93.7 fl (85-98) 02/28/23 05:15 MCH 29.0 pg (27-33) 02/28/23 05:15 MCHC 30.9 g/dL (30-55) 02/28/23 05:15 RDW 15.5 % (12.1-15.1) H 02/28/23 05:15 Plt Count 209 10^3/cmm (157-399) 02/28/23 05:15 MPV 11.7 fL (7.4-10.4) H 02/28/23 05:15 Neut % (Auto) 66.8 % 02/28/23 05:15 Lymph % (Auto) 21.9 % 02/28/23 05:15 [place] % (Auto) 9.8 % 02/28/23 05:15 Eos % (Auto) 0.6 % 02/28/23 05:15 Baso % (Auto) 0.6 % 02/28/23 05:15 Neut # (Auto) 4.64 10^3/uL (1.8-7.7) 02/28/23 05:15 Lymph # (Auto) 1.5 10^3/uL (0.8-4.8) 02/28/23 05:15 [place] # (Auto) 0.7 10^3/uL (0.2-0.9) 02/28/23 05:15 Eos # (Auto) 0.0 10^3/uL (0.0-0.8) 02/28/23 05:15 Baso # (Auto) 0.0 10^3/uL (0.0-0.1) 02/28/23 05:15 Nucleated RBC % (auto) 0 % 02/28/23 05:15 Nucleated RBCs # 0.0 /100WBC 02/28/23 05:15 Sodium 136 mmol/L (136-145) 02/28/23 05:15 Potassium 4.6 mmol/L (3.5-5.1) 02/28/23 05:15 Chloride 97 mmol/L (98-107) L 02/28/23 05:15 Carbon Dioxide 26 mmol/L (22-29) 02/28/23 05:15 Anion Gap 17.6 (5-19) 02/28/23 05:15 BUN 43 mg/dL (8-23) H 02/28/23 05:15 Creatinine 6.4 mg/dL (0.5-0.9) H* 02/28/23 05:15 GFR Calculation Not Reportable 02/28/23 05:15 Glucose 104 mg/dL (65-115) 02/28/23 05:15 POC Glucose 93 mg/dL (70-110) 03/01/23 06:29 Calculated Osmolality 293 mOsm/kg (285-295) 02/28/23 05:15 Calcium 8.9 mg/dL (8.5-10.5) 02/28/23 05:15 Magnesium 1.8 mg/dL (1.7-2.3) 02/28/23 05:15 Total Bilirubin 0.4 mg/dL (0.15-1.2) 02/26/23 11:40 AST 16 U/L (0-32) 02/26/23 11:40 ALT 10 U/L (0-33) 02/26/23 11:40 Alkaline Phosphatase 71 U/L (35-105) 02/26/23 11:40 Ammonia 34 umol/L (11-51) 02/26/23 14:11 Troponin T Baseline 58 ng/L (0-10) H 02/28/23 15:17 Troponin T 120 Minute 68.03 ng/L (0-10) H 02/28/23 18:59 Delta Troponin T 10.03 ABS# (0-10) H* 02/28/23 18:59 Troponin T Hi Sens 6Hr 64.73 ng/L (0-10) H 02/28/23 21:11 Troponin T Hi Sens 6Hr Delta 6.73 ng/L (0-12) 02/28/23 21:11 NT-Pro-B Natriuret Pep 09350 pg/mL (0-450) H 02/26/23 17:54 Total Protein 6.3 g/dL (6.6-8.7) L 02/26/23 11:40 Albumin 3.5 g/dL (3.5-5.2) 02/26/23 11:40 Globulin 2.8 g/dL (1.3-4.6) 02/26/23 11:40 Procalcitonin 0.20 ng/mL (0-0.5) 02/26/23 11:40 Urine Color Yellow (Yellow) 02/26/23 11:46 Urine Appearance Sl hazy (CLEAR) A 02/26/23 11:46 Urine pH 8 (5-7) H 02/26/23 11:46 Ur Specific [place] 1.010 (1.005-1.030) 02/26/23 11:46 Urine Protein 2+ (Negative) H 02/26/23 11:46 Urine Glucose (UA) Norm (Normal) 02/26/23 11:46 Urine Ketones Negative (Negative) 02/26/23 11:46 Urine Blood Neg (Negative) 02/26/23 11:46 Urine Nitrate Negative (Negative) 02/26/23 11:46 Urine Bilirubin Neg (Negative) 02/26/23 11:46 Prot Sulfosalicylic Acd Positive (Negative) 02/26/23 11:46 Urine Urobilinogen Neg mg/dL (Negative) 02/26/23 11:46 Ur Leukocyte Esterase 1+ (Negative) H 02/26/23 11:46 Urine RBC 0-4 /hpf (0-2) H 02/26/23 11:46 Urine WBC 15-25 /hpf (0-5) H 02/26/23 11:46 Ur Squamous Epith Cells 15-25 /hpf (0-5) H 02/26/23 11:46 Ur Transition Epith Cell 0-4 /hpf 02/26/23 11:46 Amorphous Sediment Not Reportable 02/26/23 11:46 Urine Bacteria Trace /hpf (NONE) 02/26/23 11:46 Coarse Granular Casts 0-4 /lpf H 02/26/23 11:46 Other Casts Wbc cast /lpf 02/26/23 11:46 Hep Bs Antigen Non-reactive (Nonreactive) 02/26/23 11:40 Hep Bs Antibody > 1000.0 (11.5-1000) H 02/26/23 11:40 Vitals Last Vital Signs Temp 97.6 F 03/01/23 08:00 Pulse 67 03/01/23 08:03 Resp 16 03/01/23 08:03 BP 139/57 03/01/23 09:18 Pulse Ox 97 03/01/23 08:03 O2 Del Method Nasal Cannula 03/01/23 08:03 O2 Flow Rate 3 03/01/23 08:03 Discharge Plan Discharge Patient Disposition: Home Condition: Stable Prescriptions: New cefdinir 300 mg capsule 300 mg PO BID 4 Days Qty: 8 0RF Continued Tradjenta 5 mg tablet 5 mg PO QAM alprazolam 0.25 mg tablet 0.25 mg PO BEDTIME acetaminophen [Tylenol Extra Strength] 500 mg Tablet 500 - 1,000 mg PO Q6H PRN (Reason: Pain) calcium carbonate [Tums] 200 mg calcium (500 mg) Tablet,Chewable 200 mg PO DAILY PRN (Reason: Heartburn) RenaPlex-D 800 mcg-12.5 mg -2,000 unit tablet 1 tab PO QAM atorvastatin 40 mg Tablet 40 mg PO BEDTIME ropinirole 0.25 mg Tablet 0.25 mg PO BEDTIME C,E,zinc,copper [id number] 250-5-1 mg Capsule 1 cap PO QAM fluticasone propionate 50 mcg/actuation [place],Suspension 1 spray INTRANASAL DAILY PRN (Reason: Allergy Symptoms) Rx Instructions: administer into each nostril losartan 50 mg tablet 50 mg PO BID cyanocobalamin (vitamin B-12) [Vitamin B-12] 1,000 mcg Tablet 1,000 mcg PO QAM amlodipine 10 mg tablet 10 mg PO BEDTIME omeprazole 40 mg capsule,delayed release(DR/EC) 40 mg PO BID metoprolol succinate 50 mg tablet extended release 24 hr 25 mg PO DAILY aspirin 81 mg Tablet,Delayed Release (Dr/Ec) 81 mg PO BEDTIME nitroglycerin [Nitrostat] 0.4 mg Tablet, Sublingual 0.4 mg SUBLINGUAL Q5M PRN (Reason: Chest Pain) Rx Instructions: do not exceed 3 doses per episode albuterol sulfate 90 mcg/actuation HFA aerosol inhaler 2 puff INHALATION Q4H PRN (Reason: Shortness Of Breath) Breztri Aerosphere 160-9-4.8 mcg/actuation HFA aerosol inhaler 2 inh INHALATION BID PRN (Reason: unknown) furosemide 40 mg tablet 40 mg PO QAM Discharge Orders: Discharge Order (Routine); Ordered 03/01/23 Ordered By: Farheen Stark Other Ambulatory Orders: DME: Jonathan (Order) Location: None Selected Ordered By: Farheen Ribeiro Stress Test Request (Routine) Timeframe: 1 Day Facility: [facility] - Location: Cardiac Diagnostic Laboratory Ordered By: Farheen Stark Referrals: Alessandro Carney MD [Physician] - 1 week Magdiel Amador MD [Primary Care Provider] - 03/05/23 10:30 am Discharge Diet: Cardiac and Diabetic Discharge Activity: Resume usual activity Patient Instructions: Cefdinir (By mouth), Heart Failure (GEN), Urinary Tract Infection in Women (GEN), CHF Stoplight, Opioid Safety Discharge Attestations Time Spent in Discharge Care*: greater than 30 min Status at Discharge: Cognitive status at discharge: cognitively intact, Behavioral status at discharge: cooperative, Quality Metrics Clinical Quality Measures [ No reported AMI, CVA or VTE this stay] Coding Level of Care Code Acute Code for Chg Fwd Diagnoses End stage renal disease on dialysis N18.6; Z99.2 End stage renal disease N18.6
[2023-03-01 11:57] VITALS: BP 139/57
== END 2023-03-01 11:55 | disposition home or self-care (01) ==
LOC: ER 13:45 → MEDSURG 17:08 → ER IP 02-27 06:21 → MEDSURG 02-27 06:21
PROVIDERS: Hospitalist; Admitting Provider Internal Medicine; Emergency Provider Emergency Medicine; PCP Family Medicine; Visit Provider Internal Medicine
DX: E11.22 Type 2 diabetes mellitus with diabetic chronic kidney disease (principal); I13.0 Hypertensive heart and chronic kidney disease with heart failure and stage 1 through stage 4 chronic kidney disease, or unspecified chronic kidney disease; N18.6 End stage renal disease; I50.33 Acute on chronic diastolic (congestive) heart failure; Z99.2 Dependence on renal dialysis; J44.9 Chronic obstructive pulmonary disease, unspecified; D63.1 Anemia in chronic kidney disease; I25.10 Atherosclerotic heart disease of native coronary artery without angina pectoris; Z95.0 Presence of cardiac pacemaker; R06.02 Shortness of breath; I35.0 Nonrheumatic aortic (valve) stenosis; I48.0 Paroxysmal atrial fibrillation; N39.0 Urinary tract infection, site not specified; J84.9 Interstitial pulmonary disease, unspecified; Z87.891 Personal history of nicotine dependence; Z79.82 Long term (current) use of aspirin; J90 Pleural effusion, not elsewhere classified
CPT/HCPCS: 36415; 36416; 71045; 72131; 74176; 80048; 80053; 81001; 82140; 82962; 83735; 83880; 84145; 84484; 85025; 86706; 87086; 87340; 90935; 93005; 93306; 94664; 96365; 96366; 96367; 96372; 96375; 99285; G0378; J0696; J1100; J1644; J1815; J1940; J2060; J2405; Q3014; Q4081

== ENCOUNTER 2023-03-14 09:38 | Observation (INO) | payer OTHER, MEDICAID, SELFPAY ==
[2023-03-14] VITALS (14 sets, daily range): BP systolic 122–171; BP diastolic 38–79; PULSE 61–83; RESP 16–17; TEMP 36.3–36.7; O2SAT 88–100; BMI 20.6; BMI 21.8
--- NOTE | 2023-03-14 09:50 | CT_ITS ---
WS: [id number] CT LUMBAR SPINE, noncontrast. HISTORY: left lumbar/sacral pain TECHNIQUE: Contiguous 2.0 mm axial imaging are performed. Sagittal and coronal reformats are submitte d and reviewed. All CT scans at [facility] use at least one of these dose optimization techni ques: automated exposure control; mA and/or kV adjustment per patient size (includes targeted exams w here dose is matched to clinical indication); or iterative reconstruction. IV contrast: None DLP: 400.37 mGy.cm COMPARISON: 02/26/2023 and 12/04/2022 Slight retrolisthesis of of L5 on S1 by 2 to 3 mm is stable. Severe disc space narrowing at L5-S1 wit h vacuum disc phenomenon and osteophytes. 25% compression fracture of L1 with retrolisthesis by 4.3 c m of the posterior endplate. Mild bone encroachment upon the subarticular recesses and central canal. Similar to prior recent studies. No new fracture. L1-2: Diffuse annular disc bulging, osteophytic ridging and mild facet arthritis. L2-3: Diffuse annular disc bulging. Mild central and bilateral foraminal stenosis. L3-4: Mild annular disc bulging and osteophytic ridging and facet arthritis. Mild central, subarticul ar recess and foraminal stenosis. L4-5: Marked broad-based disc bulging with significant encroachment upon the ventral thecal sac. Liga mentum flavum and facet arthritis. Severe central, bilateral subarticular recess and moderate foramin al stenosis. There is significant disc encroachment upon the traversing L5 nerve roots. L5-S1: Diffuse annular disc bulging and osteophytic ridging and facet arthritis. Moderate to severe b ilateral foraminal stenosis with mild central and subarticular recess encroachment. Mild SI joint degenerative air. No osseous destruction. Moderate atherosclerotic plaque abdominal aor ta. Mesenteric artery calcifications. Kidneys are atrophied. Sigmoid diverticular disease. Small bila teral ovarian cysts. IMPRESSION: 1. No interval change in appearance of the lumbar spine since 02/26/2023. 2. Chronic L1 compression fracture by 25% with 4.3 mm retropulsion. 3. Severe disc space narrowing and degeneration at L5-S1. 4. L4-5: Severe central, bilateral subarticular recess and moderate foraminal stenosis. 5. L5-S1: Moderate to severe bilateral foraminal stenosis with mild central and subarticular recess encroachment. 6. L3-4: Mild central, subarticular recess and foraminal stenosis. 7. Reidentified are the previously described small bilateral ovarian cysts.
--- NOTE | 2023-03-14 09:51 | W.ED.BACK ---
HPI - Back Pain/Injury General: Chief Complaint: Back Pain/Injury Stated Complaint: back pain Time Seen by Provider: 03/14/23 09:39 Source: patient Mode of arrival: EMS Limitations: no limitations History of Present Illness: This patient was transported to the emergency department because of left lumbar back pain. He states his pain has been present since last week. She apparently was evaluated in the emergency department and admitted to the hospital because there was thought to be a GI etiology to her symptoms. She was evaluated as an inpatient treated for UTI and constipation and discharged home. Subsequently she continues to have the left lumbar pain. There is no history of falls lifting twisting turning bending. She states that she is normally very active but this discomfort has limited her activity. She denies any fevers or chills. She states she has been urinating normally for her (she has a chronic renal failure on dialysis) as well as having normal bowel movements. She denies any numbness weakness loss of bowel or bladder control etc. She has a history of COPD on oxygen but denies any fevers chills etc. He is on Friday dialysis schedule and did miss her Friday dialysis because it was uncomfortable for her to move to get into the car. MD elicited complaint: back pain Quality: dull and aching Location: lumbar spine and sacrum Context: unknown Associated symptoms: Deny abdominal pain, chills, dysuria, fever(s), nausea or vomiting Review of Systems Const: Denies: fever(s) or chills Eyes: Denies: change in vision ENMT: Denies: throat pain, odynophagia, nasal discharge or nasal congestion Card: Denies: chest pain, palpitations or irregular heart rhythm Resp: Denies: dyspnea or non-productive cough GI: Denies: abdominal pain, nausea, vomiting, diarrhea, change in stool character or melena : Reports: oliguria; Denies: flank pain, difficulty voiding, dysuria or urinary frequency Musc: Reports: back pain; Denies: neck pain, extremity pain or extremity swelling Skin/Breast: Denies: rash Neuro: Denies: headache(s), numbness in extremities or weakness in extremities PFS ED PFSH: Medical History Severe aortic stenosis Hiatal hernia Gastritis Exertional dyspnea Recurrent aspiration events Dysphagia Esophageal dysmotility Dark stools Cough Hematochezia Coronary artery disease Intermittent atrial fibrillation COPD (chronic obstructive pulmonary disease) Carotid stenosis Interstitial lung disease Diastolic congestive heart failure GERD (gastroesophageal reflux disease) Anemia Diabetes Essential hypertension End stage renal disease Third degree heart block Status post pacemaker placement Surgical History Status post colonoscopy (12/30/19) History of laparoscopic cholecystectomy S/P hemodialysis catheter insertion History of permanent cardiac pacemaker placement History of tubal ligation Hemodialysis access site with arteriovenous graft Family History Mother Cancer Lung cancer Father Diabetes Other CAD (coronary artery disease) Denies family history of Anesthesia complication Bleeding disorder Social History Smoking and tobacco/nicotine status: former use of tobacco/nicotine Quit status (tobacco/nicotine): has quit using Year quit tobacco: 1983 Former quit date comment: 2ppd x 19 years Alcohol intake: never Substance/Drug Use: never Physical Exam Narrative: EXAM NARRATIVE: Patient is alert and in no acute distress. She is very cooperative and speaks fluently in goal-directed sentences. Const: COMMON NORMALS: no acute distress, average body habitus, patient oriented x3 and alert GENERAL APPEARANCE: cooperative NUTRITIONAL APPEARANCE: thin HENMT: COMMON NORMALS: normocephalic and Normal nasal mucous membranes and turbinates present HEAD & SCALP: normocephalic NOSE: Normal nasal mucous membranes and turbinates present Eye: COMMON NORMALS: Equal, round and reactive pupils present, EOMs intact bilaterally and conjunctivae normal CONJUNCTIVA: Yes conjunctivae normal PUPIL: Yes Equal, round and reactive pupils present Neck/C-Spine: COMMON NORMALS: full ROM, supple and No carotid bruits Chest: COMMONS NORMALS: normal inspection of the chest Resp: COMMON NORMALS: normal respiratory effort, No retractions and clear to auscultation bilaterally AUSCULTATION: clear to auscultation bilaterally Cardio: COMMON NORMALS: regular rate, regular rhythm and Peripheral pulses 2+ throughout RATE: regular rate RHYTHM: regular rhythm PERIPHERAL PULSES: Peripheral pulses 2+ throughout GI: COMMON NORMALS: Normal to inspection, nondistended, normoactive bowel sounds present, Soft to palpation, non-tender and no masses PALPATION: Yes Soft to palpation RECTAL EXAM: visual inspection normal OTHER: Rectal examination revealed normal sphincter tone with intact perineal sensation. She had no stool in the rectal vault. : COMMON NORMALS: Yes no CVA tenderness BLADDER/KIDNEY EXAM: Yes no CVA tenderness Back/Pelvis: COMMON NORMALS: no CVA tenderness and thoracic and lumbar spine normal to inspection SACROILIAC JOINTS: Yes SI joint(s) abnormal (Tender in the left SI joint region) OTHER: She has no midline tenderness, step-off etc. She has no tenderness in the right lumbosacral region. She does have tenderness in the left some lumbosacral region particularly in the region of the posterior superior iliac spine. Straight leg raising at approximately 70 degrees reproduces some of her symptoms as well as rotation of her left hip and rotation of her trunk. Extremity: COMMON NORMALS: full ROM, capillary refill normal, no calf tenderness and no pedal edema NARRATIVE EXTREMITY EXAM: She has a arteriovenous fistula in the left upper arm which has a palpable thrill. Neuro: COMMON NORMALS: patient oriented x3, moves all extremities, no focal motor deficits and no sensory deficits noted SENSORIUM/ORIENTATION: Yes alert CRANIAL NERVES: Yes CN normal except as noted Psych: COMMON NORMALS: mental status grossly normal Skin: COMMON NORMALS: no rashes or lesions noted and turgor normal GENERAL SKIN EXAM: no rashes or lesions noted and turgor normal Course Reevaluation(s): Reevaluation #1: Reviewed CT findings with patient and daughter who is now present. Does not appear to be any acute process other than what appears to be sacroiliac dysfunction and pain in that region. Discussed risks and benefits of a local anesthetic injection in that area and she voiced understanding agreed to proceed. Using aseptic septic technique for mL of 0.5% Marcaine were infiltrated in the soft tissue around the posterior superior iliac region soft tissue. She tolerated procedure well. Time: 11:25 Reevaluation #2: After a period of time the patient was given the opportunity attempt to change positions and then ambulate and she stated that she could not do so because of the pain. At this point we will have to consider placing in observation and having orthopedic consultation. Bladder scan was obtained revealed no evidence of urinary retention she is has approximately 50 mL of urine in her bladder currently. Time: 12:03 Consultations: Consultation #1: I discussed with Dr. Jaye on-call orthopedic and spine surgeon who agreed to see her if we placed her in inpatient status. Time: 12:43 Consultation #2: I reviewed the case with Dr. Stark who agreed to put her in observation to get dialyzed and have orthopedics evaluate her. Time: 13:05 Vital Signs: Vital signs: Vital Signs Temperature 98.0 F 03/14/23 09:39 Pulse Rate 61 03/14/23 10:19 Respiratory Rate 17 03/14/23 09:39 Blood Pressure 140/39 03/14/23 10:19 Pulse Oximetry 93 03/14/23 10:19 Oxygen Delivery Me thod Nasal Cannula 03/14/23 10:19 Oxygen Flow Rate 3 03/14/23 10:19 MDM - Back Pain/Injury Medical Decision Making This patient returns to the emergency department because of persistent chronic low back pain. She has had the symptoms for approximately 2+ weeks. She was initially admitted to the hospital and thought to have partial small bowel obstruction and GI etiology to her symptoms. Apparently at the resolution of that hospitalization she felt better for approximately 1 day and then symptoms returned. She is continues to have low back pain to the point where she is not wanting to get out of bed. She states she has been eating and drinking and having normal bowel movements. She does make small amounts of urine but does have chronic renal failure and is on dialysis. She has missed her dialysis this week because of inability get out of bed. She denies any fevers or chills. There is no history of recent trauma etc. Clinical examination revealed no midline tenderness. She did have tenderness in the left posterior superior iliac spine region with a positive leg raising and index extreme of 70 degrees. Bladder scan revealed approximately 50 mL of urine in the bladder and the rectal examination revealed good sphincter tone without any evidence of fecal impaction. She had intact perineal sensation. A lumbar CT scan revealed multiple areas of spinal stenosis old compression fractures and broad-based disc herniation. She failed to respond to conservative trigger point injections in the emergency department and continued to have persistent back pain. She is being admitted to observation status for dialysis as well as orthopedic consultation. Medical Records I reviewed the patient's medical records. Prior hospitalization with discharge summary noting resolution of back pain at that time. Labs I reviewed the patient's lab results. All radiology interpretation(s) finalized by discharge Discharge Plan Discharge Patient Disposition: Placed in Observation Clinical Impression: Intractable low back pain, Chronic kidney disease with end stage renal failure on dialysis Condition: Stable Prescriptions: No Action Tradjenta 5 mg tablet 5 mg PO QAM alprazolam 0.25 mg tablet 0.25 mg PO BEDTIME acetaminophen [Tylenol Extra Strength] 500 mg Tablet 500 - 1,000 mg PO Q6H PRN (Reason: Pain) calcium carbonate [Tums] 200 mg calcium (500 mg) Tablet,Chewable 200 mg PO DAILY PRN (Reason: Heartburn) RenaPlex-D 800 mcg-12.5 mg -2,000 unit tablet 1 tab PO QAM atorvastatin 40 mg Tablet 40 mg PO BEDTIME ropinirole 0.25 mg Tablet 0.25 mg PO BEDTIME 50 Plus Adult [facility] Health 250-5-1 mg Capsule 1 cap PO QAM fluticasone propionate 50 mcg/actuation [place],Suspension 1 spray INTRANASAL DAILY PRN (Reason: Allergy Symptoms) Rx Instructions: administer into each nostril losartan 50 mg tablet 50 mg PO BID cyanocobalamin (vitamin B-12) [Vitamin B-12] 1,000 mcg Tablet 1,000 mcg PO QAM amlodipine 10 mg tablet 10 mg PO BEDTIME omeprazole 40 mg capsule,delayed release(DR/EC) 40 mg PO BID metoprolol succinate 50 mg tablet extended release 24 hr 25 mg PO DAILY aspirin 81 mg Tablet,Delayed Release (Dr/Ec) 81 mg PO BEDTIME nitroglycerin [Nitrostat] 0.4 mg Tablet, Sublingual 0.4 mg SUBLINGUAL Q5M PRN (Reason: Chest Pain) Rx Instructions: do not exceed 3 doses per episode albuterol sulfate 90 mcg/actuation HFA aerosol inhaler 2 puff INHALATION Q4H PRN (Reason: Shortness Of Breath) Breztri Aerosphere 160-9-4.8 mcg/actuation HFA aerosol inhaler 2 inh INHALATION BID PRN (Reason: unknown) furosemide 40 mg tablet 40 mg PO QAM tizanidine 2 mg tablet 2 mg PO DAILY hydrocodone-acetaminophen 5-325 mg tablet 1 tab PO Q12H PRN (Reason: Pain, Moderate) Fiber Gummies 2 gram Tablet,Chewable 2 g PO QID Colace 100 mg Capsule 200 mg PO BEDTIME Referrals: Magdiel Amador MD [Primary Care Provider] - Coding Level of Care Code ED Property Assessment Monitor for Chg Joshua
[2023-03-14] MEDS: BUPivacaine 0.5% INJ 10 mL INJECTION (11:30)
--- NOTE | 2023-03-14 12:00 | PC.NURSE ---
Went into patient's room to try and get her up to move about [address] Bourne administered a bupivicaine injection into her lower back and patient refused to even attempt to sit up. Patient stated that her pain was worse than before and that she was not able to do anything but lay on her side.
--- NOTE | 2023-03-14 15:00 | PM.HP ---
Providers/Chief Complaint Primary Care Provider: Magdiel Amador MD Chief Complaint: back pain History of Present Illness Galina Saba is a 88 year old female Galina Saba is a 88 year old female with past medical history of left lower lobe pneumonia, partial small bowel obstruction, ESRD on dialysis, chronic diastolic heart failure, generalized weakness, COPD, anemia of chronic disease, coronary artery disease, atrial fibrillation, hypertension, aortic stenosis, interstitial lung disease, complete heart block status post pacemaker placement presented to the hospital for lumbar back pain. She woke up this morning with pain. No known trauma. The pain radiates into both hips. Located in lower lumbar spine. She could not stand and ambulance had to be called. No urinary or bowel incontinence or retention. No fever. Basic labs obtained were mostly unremarkable except BUN and creatinine being high secondary to ESRD. She missed dialysis today. Has been feeling more short of breath than normal. She was here for all of the above complaints on 02/26/1905/14/2023 as well however at that time lumbar CT showed no acute pathology. At previous admission she was also found to have a possible partial small bowel obstruction. NG tube was placed. After having bowel movements patient's back pain resolved and she felt better. Today lumbar CT was done which shows 1. No interval change in appearance of the lumbar spine since 02/26/2023. 2. Chronic L1 compression fracture by 25% with 4.3 mm retropulsion. 3. Severe disc space narrowing and degeneration at L5-S1. 4. L4-5: Severe central, bilateral subarticular recess and moderate foraminal stenosis. 5. L5-S1: Moderate to severe bilateral foraminal stenosis with mild central and subarticular recess encroachment. 6. L3-4: Mild central, subarticular recess and foraminal stenosis. 7. Reidentified are the previously described small bilateral ovarian cysts. Dr. Dunn spine surgeon was consulted. Patient will be admitted for spine surgery consult and dialysis today. She is unable to move out of bed. Medications/Allergies Home Medications Medication Instructions Recorded Confirmed Last Taken Type linagliptin 5 mg tablet (Tradjenta) 5 mg PO QAM 04/15/19 03/14/23 03/13/23 History vit B,C-folic ac 800 mcg-zinc 12.5 1 tab PO QAM 06/16/19 03/14/23 03/13/23 History mg-selen-D3 2,000 unit-vit E tablet (RenaPlex-D) atorvastatin 40 mg tablet 40 mg PO BEDTIME 11/17/19 03/14/23 03/13/23 History acetaminophen 500 mg tablet 500 - 1,000 mg PO Q6H PRN Pain 07/31/20 03/14/23 06/26/22 18:00 History (Tylenol Extra Strength) calcium carbonate 200 mg calcium 200 mg PO DAILY PRN Heartburn 07/31/20 03/14/23 12/03/22 History (500 mg) chewable tablet (Tums) fluticasone propionate 50 1 spray intranasal DAILY PRN 07/30/21 03/14/23 12/03/22 History mcg/actuation nasal Allergy Symptoms spray,suspension vit C,E,zinc,copper-lckta2r 250 1 cap PO QAM 07/30/21 03/14/23 03/13/23 History mg-lutein 5 mg-zeaxanthin 1 mg capsule (50 Plus Adult [facility]) amlodipine 10 mg tablet 10 mg PO BEDTIME 10/11/21 03/14/23 03/13/23 History cyanocobalamin (vitamin B-12) 1,000 mcg PO QAM 10/11/21 03/14/23 03/13/23 History 1,000 mcg tablet (Vitamin B-12) omeprazole 40 mg capsule,delayed 40 mg PO BID 10/11/21 03/14/23 03/13/23 History release ropinirole 0.25 mg tablet 0.25 mg PO BEDTIME 05/13/22 03/14/23 03/13/23 History alprazolam 0.25 mg tablet 0.25 mg PO BEDTIME 07/09/22 03/14/23 03/13/23 History losartan 50 mg tablet 50 mg PO BID 07/09/22 03/14/23 03/13/23 History albuterol sulfate 90 mcg/actuation 2 puff inhalation Q4H PRN 11/11/22 03/14/23 Unknown History aerosol inhaler Shortness Of Breath aspirin 81 mg tablet,delayed 81 mg PO BEDTIME 11/11/22 03/14/23 03/13/23 History release budesonide 160 mcg-glycopyr 9 2 inh inhalation BID PRN unknown 11/11/22 03/14/23 Unknown History mcg-formot 4.8 mcg/actuation HFA inhaler (Breztri Aerosphere) furosemide 40 mg tablet 40 mg PO QAM 11/11/22 03/14/23 03/13/23 History metoprolol succinate 50 mg 25 mg PO DAILY 11/11/22 03/14/23 03/13/23 History tablet,extended release 24 hr nitroglycerin 0.4 mg sublingual 0.4 mg sublingual Q5M PRN Chest 11/11/22 03/14/23 Unknown History tablet (Nitrostat) Pain docusate sodium 100 mg capsule 200 mg PO BEDTIME 03/14/23 03/14/23 03/13/23 History (Colace) inulin 2 gram chewable tablet 2 g PO QID 03/14/23 03/14/23 03/13/23 History (Fiber Gummies) tizanidine 2 mg tablet 2 mg PO DAILY 03/14/23 03/14/23 03/13/23 History hydrocodone 5 mg-acetaminophen 325 1 tab PO Q8H PRN Pain, Moderate 03/15/23 Unknown Rx mg tablet #14 tabs lidocaine 5 % topical patch 1 patch topical [id number] #5 ea 03/15/23 Unknown Rx Allergies Allergy/AdvReac Type Severity Reaction Status Date / Time lisinopril Allergy Unknown Unknown Verified 12/04/22 12:07 morphine AdvReac Intermediate ADR-Nausea Verified 12/04/22 12:07 PFSH Acute PFSH: Medical History Severe aortic stenosis Hiatal hernia Gastritis Exertional dyspnea Recurrent aspiration events Dysphagia Esophageal dysmotility Dark stools Cough Hematochezia Coronary artery disease Intermittent atrial fibrillation COPD (chronic obstructive pulmonary disease) Carotid stenosis Interstitial lung disease Diastolic congestive heart failure GERD (gastroesophageal reflux disease) Anemia Diabetes Essential hypertension End stage renal disease Third degree heart block Status post pacemaker placement Surgical History Status post colonoscopy (12/30/19) History of laparoscopic cholecystectomy S/P hemodialysis catheter insertion History of permanent cardiac pacemaker placement History of tubal ligation Hemodialysis access site with arteriovenous graft Family History Mother Cancer Lung cancer Father Diabetes Other CAD (coronary artery disease) Denies family history of Anesthesia complication Bleeding disorder Social History Smoking and tobacco/nicotine status: former use of tobacco/nicotine Quit status (tobacco/nicotine): has quit using Year quit tobacco: 1983 Former quit date comment: 2ppd x 19 years Alcohol intake: never Substance/Drug Use: never Vitals/I&O/Wt Last Vital Signs Temp 98.0 F 03/14/23 09:39 Pulse 61 03/14/23 10:19 Resp 17 03/14/23 09:39 BP 140/39 03/14/23 10:19 Pulse Ox 93 03/14/23 10:19 O2 Del Method Nasal Cannula 03/14/23 10:19 O2 Flow Rate 3 03/14/23 10:19 Weight last 48 hrs Weight 51.256 kg Physical Exam Narrative: General: No acute distress, on 3L NC HEENT: Normocephalic, atraumatic, EOMI, Cardio: RRR, normal S1-S2 Respiratory: B/L crackles upto mid lung pride GI: Abdomen soft nontender, bowel sounds positive. Extremities: 1+ edema b/l Data 03/15/23 04:57 03/15/23 04:57 A&P Assessment and plan (1) Essential hypertension: (2) Acute on chronic diastolic CHF (congestive heart failure): (3) Severe aortic stenosis: (4) Coronary artery disease: Qualifiers: Associated angina: without angina Coronary Disease-Associated Artery/Lesion type: [place] artery [place] vs. transplanted heart: [place] heart Qualified Code(s): I25.10 - Atherosclerotic heart disease of [place] coronary artery without angina pectoris (5) Intermittent atrial fibrillation: (6) Diabetes: (7) End stage renal disease: (8) Urinary tract infection: (9) COPD (chronic obstructive pulmonary disease): (10) Interstitial lung disease: Plan # Low back pain, chronic compression fracture with retropulsion at L1 level. #End-stage renal disease on dialysis #Anemia of chronic disease #History of COPD, not in exacerbation at this time #Acute on Chronic diastolic heart failure exacerbation #Hx of aortic stenosis ? Check urine culture,, check urinalysis blood culture ? Continue aspirin, atorvastatin, metoprolol, losartan, furosemide, omeprazole, RenaPlex ? DuoNeb every 6 hours as needed ? Patient is not septic. Vital stable ? She is on 3 L nasal cannula at home at baseline ? Missed dialysis today. ? Consult nephrology for continuation of dialysis -Echo completed previous visit. Will not repeat at this time. - Lasix 60 IV x1 now. ?Consult spine surgery. Dr. Dunn. DVT prophylaxis: Heparin SQ twice daily Attestations Medical Necessity Statement*: Observation stay for low back pain and missed dialysis. Diagnoses Essential hypertension I10 Acute on chronic diastolic CHF (congestive heart failure) I50.33 Severe aortic stenosis I35.0 Coronary artery disease involving [place] coronary artery of [place] heart without angina pectoris I25.10 Associated angina: without angina Coronary Disease-Associated Artery/Lesion type: [place] artery [place] vs. transplanted heart: [place] heart Intermittent atrial fibrillation I48.0 Diabetes E11.9 End stage renal disease N18.6 Urinary tract infection N39.0 COPD (chronic obstructive pulmonary disease) J44.9 Interstitial lung disease J84.9
[2023-03-14 16:58] LABS: Glucose Point of Care 116 mg/dL (70-110)
--- NOTE | 2023-03-14 17:23 | XRR_ITS ---
PROCEDURE INFORMATION: Exam: XR Chest Exam date and time: 03/14/2023 6:25 PM Age: 88 years old Clinical indication: Shortness of breath; Additional info: SOB TECHNIQUE: Imaging protocol: Radiologic exam of the chest. Views: 1 view. COMPARISON: CR XR chest 1V portable [id number] 02/27/2023 3:32 PM FINDINGS: Tubes, catheters and devices: Pacer device noted in the left chest wall. Vascular stent projects over the left axilla. Lungs: Diffuse coarsening of the lung parenchyma. Increased interstitial lung markings at the lung bases. No consolidation. Pleural spaces: Unremarkable. No pleural effusion. No pneumothorax. Heart/Mediastinum: Unremarkable. No cardiomegaly. Bones/joints: Rotator cuff anchor noted in the right humeral head. Visualized osseous structures are intact. XR/XR chest 1V portable [id number] IMPRESSION: Increased interstitial lung markings at the lung bases suggestive of pulmonary edema.
[2023-03-14] MEDS: heparin 5,000 unit/mL INJ 1 mL 5000 UNIT SUBCUT (17:29)
[2023-03-14] MEDS: losartan 50 mg Tablet PO (17:30)
[2023-03-14] MEDS: pantoprazole DR 40 mg Tablet PO (17:30)
[2023-03-14] MEDS: FUROsemide 10 mg/mL SDV 10mL 60 MG IVP (18:43)
[2023-03-14] MEDS: dexamethasone 10 mg/mL INJ IVP (18:44)
--- NOTE | 2023-03-14 19:01 | PM.CONSULT ---
Providers/Reason For Consult Consulting Physician/Specialty*: Hospitalist Reason for Consult*: Back pain Attending Physician: Farheen Stark MD Primary Care Provider: Magdiel Amador MD History of Present Illness History of Present Illness Galina Saba is a 88 year old female presents with severe back pain. She does not have any radicular symptoms in her legs. She was seen in the hospital February 26 for the same back pain however she was having constipation once she had a bowel movement the pain improved however patient is not constipated at this time. She is a dialysis patient was admitted to have dialysis. Did discuss with her that she has significant disc disease at L5-S1 and facet arthritis. With her history of kidney disease and osteoporosis I do not feel like any surgeries would help her with the disc disease patient would likely need a fusion to treat this however her bone quality would not support this. Review of Systems Const: Denies: fever(s) or chills Eyes: Denies: change in vision ENMT: Denies: throat pain, odynophagia, nasal discharge or nasal congestion Card: Denies: chest pain, palpitations or irregular heart rhythm Resp: Denies: dyspnea or non-productive cough GI: Denies: abdominal pain, nausea, vomiting, diarrhea, change in stool character or melena : Reports: oliguria; Denies: flank pain, difficulty voiding, dysuria or urinary frequency Musc: Reports: back pain; Denies: neck pain, extremity pain or extremity swelling Skin/Breast: Denies: rash Neuro: Denies: headache(s), numbness in extremities or weakness in extremities Medications/Allergies Home Medications Medication Instructions Recorded Confirmed Last Taken Type linagliptin 5 mg tablet (Tradjenta) 5 mg PO QAM 04/15/19 03/14/23 03/13/23 History vit B,C-folic ac 800 mcg-zinc 12.5 1 tab PO QAM 06/16/19 03/14/23 03/13/23 History mg-selen-D3 2,000 unit-vit E tablet (RenaPlex-D) atorvastatin 40 mg tablet 40 mg PO BEDTIME 11/17/19 03/14/23 03/13/23 History acetaminophen 500 mg tablet 500 - 1,000 mg PO Q6H PRN Pain 07/31/20 03/14/23 06/26/22 18:00 History (Tylenol Extra Strength) calcium carbonate 200 mg calcium 200 mg PO DAILY PRN Heartburn 07/31/20 03/14/23 12/03/22 History (500 mg) chewable tablet (Tums) fluticasone propionate 50 1 spray intranasal DAILY PRN 07/30/21 03/14/23 12/03/22 History mcg/actuation nasal Allergy Symptoms spray,suspension vit C,E,zinc,copper-[id number] 250 1 cap PO QAM 07/30/21 03/14/23 03/13/23 History mg-lutein 5 mg-zeaxanthin 1 mg capsule (50 Plus Adult Eye Health) amlodipine 10 mg tablet 10 mg PO BEDTIME 10/11/21 03/14/23 03/13/23 History cyanocobalamin (vitamin B-12) 1,000 mcg PO QAM 10/11/21 03/14/23 03/13/23 History 1,000 mcg tablet (Vitamin B-12) omeprazole 40 mg capsule,delayed 40 mg PO BID 10/11/21 03/14/23 03/13/23 History release ropinirole 0.25 mg tablet 0.25 mg PO BEDTIME 05/13/22 03/14/23 03/13/23 History alprazolam 0.25 mg tablet 0.25 mg PO BEDTIME 07/09/22 03/14/23 03/13/23 History losartan 50 mg tablet 50 mg PO BID 07/09/22 03/14/23 03/13/23 History albuterol sulfate 90 mcg/actuation 2 puff inhalation Q4H PRN 11/11/22 03/14/23 Unknown History aerosol inhaler Shortness Of Breath aspirin 81 mg tablet,delayed 81 mg PO BEDTIME 11/11/22 03/14/23 03/13/23 History release budesonide 160 mcg-glycopyr 9 2 inh inhalation BID PRN unknown 11/11/22 03/14/23 Unknown History mcg-formot 4.8 mcg/actuation HFA inhaler (Breztri Aerosphere) furosemide 40 mg tablet 40 mg PO QAM 11/11/22 03/14/23 03/13/23 History metoprolol succinate 50 mg 25 mg PO DAILY 11/11/22 03/14/23 03/13/23 History tablet,extended release 24 hr nitroglycerin 0.4 mg sublingual 0.4 mg sublingual Q5M PRN Chest 11/11/22 03/14/23 Unknown History tablet (Nitrostat) Pain docusate sodium 100 mg capsule 200 mg PO BEDTIME 03/14/23 03/14/23 03/13/23 History (Colace) hydrocodone 5 mg-acetaminophen 325 1 tab PO Q12H PRN Pain, Moderate 03/14/23 03/14/23 Unknown History mg tablet inulin 2 gram chewable tablet 2 g PO QID 03/14/23 03/14/23 03/13/23 History (Fiber Gummies) tizanidine 2 mg tablet 2 mg PO DAILY 03/14/23 03/14/23 03/13/23 History Allergies Allergy/AdvReac Type Severity Reaction Status Date / Time lisinopril Allergy Unknown Unknown Verified 12/04/22 12:07 morphine AdvReac Intermediate ADR-Nausea Verified 12/04/22 12:07 Current Medications Generic Name Dose Route Start Last Admin Trade Name Freq PRN Reason Stop Dose Admin Heparin Sodium (Porcine) 5,000 unit 03/14/23 15:15 03/14/23 17:29 Heparin 5,000 Unit/Ml Inj 1 Ml SUBCUT 5,000 unit Q12H ROSIBEL Administration Losartan Potassium 50 mg 03/14/23 18:00 03/14/23 17:30 Losartan 50 Mg Tablet PO 50 mg BID ROSIBEL Administration Pantoprazole Sodium 40 mg 03/14/23 18:00 03/14/23 17:[address] 40 Mg Tablet PO 40 mg BID ROSIBEL Administration PFSH Acute PFSH: Medical History Severe aortic stenosis Hiatal hernia Gastritis Exertional dyspnea Recurrent aspiration events Dysphagia Esophageal dysmotility Dark stools Cough Hematochezia Coronary artery disease Intermittent atrial fibrillation COPD (chronic obstructive pulmonary disease) Carotid stenosis Interstitial lung disease Diastolic congestive heart failure GERD (gastroesophageal reflux disease) Anemia Diabetes Essential hypertension End stage renal disease Third degree heart block Status post pacemaker placement Surgical History Status post colonoscopy (12/30/19) History of laparoscopic cholecystectomy S/P hemodialysis catheter insertion History of permanent cardiac pacemaker placement History of tubal ligation Hemodialysis access site with arteriovenous graft Family History Mother Cancer Lung cancer Father Diabetes Other CAD (coronary artery disease) Denies family history of Anesthesia complication Bleeding disorder Social History Smoking and tobacco/nicotine status: former use of tobacco/nicotine Quit status (tobacco/nicotine): has quit using Year quit tobacco: 1983 Former quit date comment: 2ppd x 19 years Alcohol intake: never Substance/Drug Use: never Vitals/I&O/Wt Last Vital Signs Temp 97.3 F L 03/14/23 18:21 Pulse 67 03/14/23 18:21 Resp 17 03/14/23 18:21 BP 163/51 03/14/23 18:21 Pulse Ox 94 03/14/23 18:21 O2 Del Method Nasal Cannula 03/14/23 18:21 O2 Flow Rate 3 03/14/23 18:14 03/14/23 03/14/23 03/14/23 06:59 14:59 22:59 Intake Total 120 / 120 Balance 120 / 120 Weight last 48 hrs Weight 119 lb 3.2 oz Weight 113 lb Physical Exam Narrative: Patient has 5 5 strength in her lower extremities sensation intact. Pain is localized to her low back. A&P Assessment and plan (1) Intractable low back pain: Pain control with pain meds possibly steroids. CT scan was reviewed do not see any changes from previous CT scan on February 26. At this point discussed with her outpatient management with pain management for possible steroid injection or facet ablations. Coding Level of Care Code Acute Code for [facility] Fwd Diagnoses Intractable low back pain M54.59
[2023-03-14] MEDS: HYDROcodone-acetaminophen 5-325 mg Tablet 1 TAB PO (19:59)
[2023-03-14] MEDS: aspirin 81 mg EC Tablet PO (20:00)
[2023-03-14] MEDS: amlodipine 10 mg Tablet PO (20:00)
[2023-03-14] MEDS: atorvastatin 40 mg Tablet PO (20:00)
[2023-03-14] MEDS: ALPRAZolam 0.5 mg Tablet 0.25 MG PO (20:00)
[2023-03-14] MEDS: ropinirole 0.25 mg Tablet PO (20:00)
[2023-03-14] MEDS: docusate sodium 100 mg Capsule 200 MG PO (20:00)
[2023-03-14 20:30] LABS: Glucose Point of Care 136 mg/dL (70-110)
[2023-03-14 20:54] LABS: Anion Gap 20.9 (5-19); Blood Urea Nitrogen 70 mg/dL (8-23); Calcium 8.4 mg/dL (8.5-10.5); Carbon Dioxide 26 mmol/L (22-29); Chloride 95 mmol/L (98-107); Glucose 158 mg/dL (65-115); Osmolality Calculated 310 mOsm/kg (285-295); Potassium 3.9 mmol/L (3.5-5.1); Sodium 138 mmol/L (136-145)
[2023-03-15] MEDS: heparin 5,000 unit/mL INJ 1 mL 5000 UNIT SUBCUT (02:15)
[2023-03-15 02:48] LABS: Bilirubin Urine Neg (Negative); Blood Urine Neg (Negative); Glucose Urine UA Norm (Normal); Ketones Urine Negative (Negative); Leukocyte Esterase Urine Negative (Negative); Nitrate Urine Negative (Negative); Protein Urine 2+ (Negative); Urine Appearance Hazy (CLEAR); Urine Color Yellow (Yellow); Urobilinogen Urine Norm (Negative); pH Urine 7 (5-7)
[2023-03-15 02:52] LABS: Amorphous Sediment Urine TRACE /hpf; Bacteria Urine 1+ /hpf; Hyaline Casts Urine 0-4 /lpf; Mucus Urine 1+ /hpf; RBC Urine 0-4 /hpf (0-2); Squamous Epithelial Cell Urine 15-25 /hpf (0-5); WBC Urine 0-4 /hpf (0-5)
[2023-03-15 04:12] VITALS: BP 136/62; PULSE 66; RESP 16; TEMP 36.7; O2SAT 92
[2023-03-15 05:45] LABS: Basophils % 0.2 %; Hematocrit 32.1 % (36-47); Lymphocytes # 0.2 10^3/uL (0.8-4.8); Mean Corpuscular HGB Conc 31.8 g/dL (30-55); Mean Corpuscular Volume 94.4 fl (85-98); Mean Platelet Volume 11.9 fL (7.4-10.4); Monocytes # 0.1 10^3/uL (0.2-0.9); Monocytes % 1.3 %; Neutrophils # 4.42 10^3/uL (1.8-7.7); Neutrophils % 92.9 %; Nucleated Red Blood Cells % 0 %; Platelet Count 190 10^3/cmm (157-399); Red Cell Distribution Width 15.9 % (12.1-15.1); White Blood Count 4.76 10^3/uL (3.29-11.43)
[2023-03-15 06:03] LABS: Alanine Aminotransferase 28 U/L (0-33); Albumin Level 3.6 g/dL (3.5-5.2); Alkaline Phosphatase 74 U/L (35-105); Anion Gap 21.6 (5-19); Aspartate Amino Transferase 15 U/L (0-32); Blood Urea Nitrogen 72 mg/dL (8-23); Calcium 8.3 mg/dL (8.5-10.5); Carbon Dioxide 24 mmol/L (22-29); Chloride 97 mmol/L (98-107); Globulin 2.8 g/dL (1.3-4.6); Glucose 220 mg/dL (65-115); Magnesium 1.9 mg/dL (1.7-2.3); Osmolality Calculated 314 mOsm/kg (285-295); Potassium 4.6 mmol/L (3.5-5.1); Sodium 138 mmol/L (136-145); Total Bilirubin 0.3 mg/dL (0.15-1.2); Total Protein 6.4 g/dL (6.6-8.7)
[2023-03-15] MEDS: FUROsemide 40 mg Tablet PO (06:18)
[2023-03-15 06:59] LABS: Glucose Point of Care 167 mg/dL (70-110)
[2023-03-15 08:04] VITALS: BP 137/52; PULSE 122; RESP 19; TEMP 36.4; O2SAT 91
[2023-03-15] MEDS: metoprolol succinate ER (24 HR) 50 mg Tablet 25 MG PO (08:42)
[2023-03-15 08:43] VITALS: BP 137/52
[2023-03-15] MEDS: tizanidine 4 mg Tablet 2 MG PO (08:43)
[2023-03-15] MEDS: pantoprazole DR 40 mg Tablet PO (08:43)
[2023-03-15] MEDS: HYDROcodone-acetaminophen 5-325 mg Tablet 1 TAB PO (08:43)
[2023-03-15] MEDS: losartan 50 mg Tablet PO (08:43)
--- NOTE | 2023-03-15 11:02 | P.CONIM_ITS ---
Providers/Reason For Consult 2 Consulting Physician/Specialty*: kommana/nephrology Reason for Consult*: ESRD Attending Physician: Farheen Stark MD Primary Care Provider: Magdiel Amador MD History of Present Illness History of Present Illness Galina Saba is a 88 year old female Patient is 88-year-old female with past medical history of ESRD on dialysis, CHF, generalized weakness COPD, anemia of chronic disease, coronary artery disease, A-fib presented with back pain she missed her dialysis yesterday. Lumbar spine CT was done which showed stenosis at L4-S1. Patient currently complains of pain and cramping. Review of Systems 2 Narrative: OTHER ROS NEGATIVE Medications/Allergies Home Medications Medication Instructions Recorded Confirmed Last Taken Type linagliptin 5 mg tablet (Tradjenta) 5 mg PO QAM 04/15/19 03/14/23 03/13/23 History vit B,C-folic ac 800 mcg-zinc 12.5 1 tab PO QAM 06/16/19 03/14/23 03/13/23 History mg-selen-D3 2,000 unit-vit E tablet (RenaPlex-D) atorvastatin 40 mg tablet 40 mg PO BEDTIME 11/17/19 03/14/23 03/13/23 History acetaminophen 500 mg tablet 500 - 1,000 mg PO Q6H PRN Pain 07/31/20 03/14/23 06/26/22 18:00 History (Tylenol Extra Strength) calcium carbonate 200 mg calcium 200 mg PO DAILY PRN Heartburn 07/31/20 03/14/23 12/03/22 History (500 mg) chewable tablet (Tums) fluticasone propionate 50 1 spray intranasal DAILY PRN 07/30/21 03/14/23 12/03/22 History mcg/actuation nasal Allergy Symptoms spray,suspension vit C,E,zinc,copper-abypc7h 250 1 cap PO QAM 07/30/21 03/14/23 03/13/23 History mg-lutein 5 mg-zeaxanthin 1 mg capsule (50 Plus Adult Eye Health) amlodipine 10 mg tablet 10 mg PO BEDTIME 10/11/21 03/14/23 03/13/23 History cyanocobalamin (vitamin B-12) 1,000 mcg PO QAM 10/11/21 03/14/23 03/13/23 History 1,000 mcg tablet (Vitamin B-12) omeprazole 40 mg capsule,delayed 40 mg PO BID 10/11/21 03/14/23 03/13/23 History release ropinirole 0.25 mg tablet 0.25 mg PO BEDTIME 05/13/22 03/14/23 03/13/23 History alprazolam 0.25 mg tablet 0.25 mg PO BEDTIME 07/09/22 03/14/23 03/13/23 History losartan 50 mg tablet 50 mg PO BID 07/09/22 03/14/23 03/13/23 History albuterol sulfate 90 mcg/actuation 2 puff inhalation Q4H PRN 11/11/22 03/14/23 Unknown History aerosol inhaler Shortness Of Breath aspirin 81 mg tablet,delayed 81 mg PO BEDTIME 11/11/22 03/14/23 03/13/23 History release budesonide 160 mcg-glycopyr 9 2 inh inhalation BID PRN unknown 11/11/22 03/14/23 Unknown History mcg-formot 4.8 mcg/actuation HFA inhaler (Breztri Aerosphere) furosemide 40 mg tablet 40 mg PO QAM 11/11/22 03/14/23 03/13/23 History metoprolol succinate 50 mg 25 mg PO DAILY 11/11/22 03/14/23 03/13/23 History tablet,extended release 24 hr nitroglycerin 0.4 mg sublingual 0.4 mg sublingual Q5M PRN Chest 11/11/22 03/14/23 Unknown History tablet (Nitrostat) Pain docusate sodium 100 mg capsule 200 mg PO BEDTIME 03/14/23 03/14/23 03/13/23 History (Colace) inulin 2 gram chewable tablet 2 g PO QID 03/14/23 03/14/23 03/13/23 History (Fiber Gummies) tizanidine 2 mg tablet 2 mg PO DAILY 03/14/23 03/14/23 03/13/23 History hydrocodone 5 mg-acetaminophen 325 1 tab PO Q8H PRN Pain, Moderate 03/15/23 Unknown Rx mg tablet #14 tabs lidocaine 5 % topical patch 1 patch topical [id number] #5 ea 03/15/23 Unknown Rx Allergies Allergy/AdvReac Type Severity Reaction Status Date / Time lisinopril Allergy Unknown Unknown Verified 12/04/22 12:07 morphine AdvReac Intermediate ADR-Nausea Verified 12/04/22 12:07 Current Medications Generic Name Dose Route Start Last Admin Trade Name Yahaira PRN Reason Stop Dose Admin Hydrocodone Bitart/Acetaminophen 1 tab 03/14/23 16:39 03/15/23 08:43 Hydrocodone-Acetaminophen 5-325 Mg Tablet PO 1 tab Q12H PRN Administration Pain, Moderate Alprazolam 0.25 mg 03/14/23 21:00 03/14/23 20:00 Alprazolam 0.5 Mg Tablet PO 0.25 mg BEDTIME ROSIBEL Administration Amlodipine Besylate 10 mg 03/14/23 21:00 03/14/23 20:00 Amlodipine 10 Mg Tablet PO 10 mg BEDTIME ROSIBEL Administration Aspirin 81 mg 03/14/23 21:00 03/14/23 20:00 Aspirin 81 Mg Ec Tablet PO 81 mg BEDTIME ROSIBEL Administration Atorvastatin Calcium 40 mg 03/14/23 21:00 03/14/23 20:00 Atorvastatin 40 Mg Tablet PO 40 mg BEDTIME ROSIBEL Administration Docusate Sodium 200 mg 03/14/23 21:00 03/14/23 20:00 Docusate Sodium 100 Mg Capsule PO 200 mg BEDTIME ROSIBEL Administration Furosemide 40 mg 03/15/23 06:00 03/15/23 06:18 Furosemide 40 Mg Tablet PO 40 mg QAM ROSIBEL Administration Heparin Sodium (Porcine) 5,000 unit 03/14/23 15:15 03/15/23 02:15 Heparin 5,000 Unit/Ml Inj 1 Ml SUBCUT 5,000 unit Q12H ROSIBEL Administration Losartan Potassium 50 mg 03/14/23 18:00 03/15/23 08:43 Losartan 50 Mg Tablet PO 50 mg BID ROSIBEL Administration Metoprolol Succinate 25 mg 03/15/23 09:00 03/15/23 08:42 Metoprolol Succinate Er (24 Hr) 50 Mg Tablet PO 25 mg DAILY ROSIBEL Administration Pantoprazole Sodium 40 mg 03/14/23 18:00 03/15/23 08:[address] 40 Mg Tablet PO 40 mg BID ROSIBEL Administration Ropinirole HCl 0.25 mg 03/14/23 21:00 03/14/23 20:00 Ropinirole 0.25 Mg Tablet PO 0.25 mg BEDTIME ROSIBEL Administration Tizanidine HCl 2 mg 03/15/23 09:00 03/15/23 08:43 Tizanidine 4 Mg Tablet PO 2 mg DAILY ROSIBEL Administration PFSH Acute 2 PFSH: Medical History Severe aortic stenosis Hiatal hernia Gastritis Exertional dyspnea Recurrent aspiration events Dysphagia Esophageal dysmotility Dark stools Cough Hematochezia Coronary artery disease Intermittent atrial fibrillation COPD (chronic obstructive pulmonary disease) Carotid stenosis Interstitial lung disease Diastolic congestive heart failure GERD (gastroesophageal reflux disease) Anemia Diabetes Essential hypertension End stage renal disease Third degree heart block Status post pacemaker placement Surgical History Status post colonoscopy (12/30/19) History of laparoscopic cholecystectomy S/P hemodialysis catheter insertion History of permanent cardiac pacemaker placement History of tubal ligation Hemodialysis access site with arteriovenous graft Family History Mother Cancer Lung cancer Father Diabetes Other CAD (coronary artery disease) Denies family history of Anesthesia complication Bleeding disorder Social History Smoking and tobacco/nicotine status: former use of tobacco/nicotine Quit status (tobacco/nicotine): has quit using Year quit tobacco: 1983 Former quit date comment: 2ppd x 19 years Alcohol intake: never Substance/Drug Use: never Vitals/I&O/Wt Last Vital Signs Temp 97.6 F 03/15/23 08:04 Pulse 122 H 03/15/23 08:04 Resp 19 H 03/15/23 08:04 BP 137/52 03/15/23 08:43 Pulse Ox 91 03/15/23 08:04 O2 Del Method Nasal Cannula 03/15/23 08:04 O2 Flow Rate 3 03/15/23 04:12 03/14/23 03/15/23 03/15/23 22:59 06:59 14:59 Intake Total 360 / 360 120 / 480 480 / 480 Output Total Balance 360 / 360 100 / 460 480 / 480 Weight last 48 hrs Weight 53.206 kg Weight 54.068 kg Weight 51.256 kg Physical Exam 2 Narrative: awake ,alert no edema Data 03/15/23 04:57 03/15/23 04:57 A&P Assessment and plan (1) End stage renal disease: Plan 1. End-stage renal disease: On MWF schedule as outpatient, patient now presented with volume overload, plan for dialysis today 2 hypertension, restart home meds 3. Anemia: Hemoglobin at goal, monitor 4. History of A-fib 5. History of COPD 6. History of coronary artery disease and history of pacemaker Patient evaluated using audiovisual cart. Time spent 20 minutes Consult Attestations 2 Medical Necessity Statement: per andrew Coding Level of Care Code Acute Code for [facility] Fwd Diagnoses End stage renal disease N18.6
--- NOTE | 2023-03-15 11:03 | P.PN_ITS ---
Subjective 2 Subjective: Patient was in dialysis Vitals/I&O/Wt Last Vital Signs Temp 97.6 F 03/15/23 08:04 Pulse 122 H 03/15/23 08:04 Resp 19 H 03/15/23 08:04 BP 137/52 03/15/23 08:43 Pulse Ox 91 03/15/23 08:04 O2 Del Method Nasal Cannula 03/15/23 08:04 O2 Flow Rate 3 03/15/23 04:12 03/14/23 03/15/23 03/15/23 22:59 06:59 14:59 Intake Total 360 / 360 120 / 480 480 / 480 Output Total Balance 360 / 360 100 / 460 480 / 480 Weight last 48 hrs Weight 117 lb 4.8 oz Weight 119 lb 3.2 oz Weight 113 lb Data 03/15/23 04:57 03/15/23 04:57 Attestations 2 Medical Necessity Statement*: Pain control Coding Level of Care Code Acute Code for Chg Fwd
--- NOTE | 2023-03-15 11:42 | PC.NURSE ---
This nurse messaged Dr. Stark at 10:22 to request order for a lidocaine patch as pt is having right shoulder/arm pain and hydrocodone has not relieved that. Message was read, but no response. This nurse called Dr. Stark at 11:22am, but it went to voicemail. Notified pt and dialysis nurse, Luli, that I am attempting to get order for her request of lidocaine patch as they have asked for this 3 times.
[2023-03-15 12:00] VITALS: BP 136/68; RESP 18; TEMP 36.4; O2SAT 93
[2023-03-15] MEDS: epoetin alfa 1000 Unit/0.05 mL (ESRD) 20000 UNIT IVP (13:15)
[2023-03-15] MEDS: lidocaine 5% Patch 1 PATCH TOPICAL (13:15)
--- NOTE | 2023-03-15 13:29 | P.DS_ITS ---
Discharge Providers Date of Admission: 03/14/23 13:10 Date of Discharge: March 15, 2023 Attending Provider at Admission: Farheen Stark MD Attending Provider at Discharge: Farheen Stark MD Primary Care Provider: Magdiel Amador MD Diagnoses at Discharge Discharge Diagnosis (1) Intractable low back pain: Status: Acute Reason for Visit Reason for Visit: back pain Brief History: Galina Saba is a 88 year old female Galina Saba is a 88 year old female with past medical history of left lower lobe pneumonia, partial small bowel obstruction, ESRD on dialysis, chronic diastolic heart failure, generalized weakness, COPD, anemia of chronic disease, coronary artery disease, atrial fibrillation, hypertension, aortic stenosis, interstitial lung disease, complete heart block status post pacemaker placement presented to the hospital for lumbar back pain. She woke up this morning with pain. No known trauma. The pain radiates into both hips. Located in lower lumbar spine. She could not stand and ambulance had to be called. No urinary or bowel incontinence or retention. No fever. Basic labs obtained were mostly unremarkable except BUN and creatinine being high secondary to ESRD. She missed dialysis today. Has been feeling more short of breath than normal. She was here for all of the above complaints on 02/26/1905/14/2023 as well however at that time lumbar CT showed no acute pathology. At previous admission she was also found to have a possible partial small bowel obstruction. NG tube was placed. After having bowel movements patient's back pain resolved and she felt better. Today lumbar CT was done which shows 1. No interval change in appearance of the lumbar spine since 02/26/2023. 2. Chronic L1 compression fracture by 2 5% with 4.3 mm retropulsion. 3. Severe disc space narrowing and dege neration at L5-S1. 4. L4-5: Severe central, bilateral suba rticular recess and moderate foraminal stenosis. 5. L5-S1: Moderate to severe bilateral foraminal stenosis with mild central and subarticular recess encroachment. 6. L3-4: Mild central, subarticular rec ess and foraminal stenosis. 7. Reidentified are the previously desc ribed small bilateral ovarian cysts. Dr. Dunn spine surgeon was consulted. Patient will be admitted for spine surgery consult and dialysis today. She is unable to move out of bed. Hospital Course Hospital Course Patient admitted for low back pain. CT results gone over with her. Consulted Dr. Dunn as well. Unfortunately she is not a candidate for any aggressive surgical procedures at this time. She will be set up with pain management as an outpatient. She is to follow-up with Dr. Dunn as an outpatient. Lidocaine patch was used. Dexamethasone x 1 was also given. I will put her on hydrocodone every 8 hours as a bridge till she sees Ortho as an outpatient. Patient's back pain is much improved at time of discharge. Patient also missed dialysis and therefore she was dialyzed during hospital stay. Discussed with patient's daughter at bedside as well. They are requesting for a bedside commode and rollator walker. Told him it is the weekend and we do not have a older adult social work specialist here. I am unsure if we can have those set up today however I have a check with nursing staff about it. We may be able to follow-up on this on Friday. Physical Exam Narrative: General: No acute distress, on 3L NC HEENT: Normocephalic, atraumatic, EOMI, Cardio: RRR, normal S1-S2 Respiratory: Clear to auscultation bilaterally. Laying flat on baseline 3 L nasal cannula. GI: Abdomen soft nontender, bowel sounds positive. Extremities: 1+ edema b/l Discharge Data Studies Completed and Pending Completed Studies During Hospitalization Category Date Time Status CT lumbar spine wo con* [id number] Stat Cat Scan 03/14/23 09:50 Completed CXRP [XR chest 1V portable [id number]] Routine Exams 03/14/23 17:23 Completed Radiology Impressions Chest X-Ray 03/14/23 17:23 IMPRESSION: Increased interstitial lung markings at the lung bases suggestive of pulmonary edema. Laboratory Results WBC 4.76 10^3/uL (3.29-11.43) 03/15/23 04:57 RBC 3.40 10^6/uL (3.85-5.65) L 03/15/23 04:57 Hgb 10.20 g/dL (11.27-16.99) L 03/15/23 04:57 Hct 32.1 % (36-47) L 03/15/23 04:57 MCV 94.4 fl (85-98) 03/15/23 04:57 MCH 30.0 pg (27-33) 03/15/23 04:57 MCHC 31.8 g/dL (30-55) 03/15/23 04:57 RDW 15.9 % (12.1-15.1) H 03/15/23 04:57 Plt Count 190 10^3/cmm (157-399) 03/15/23 04:57 MPV 11.9 fL (7.4-10.4) H 03/15/23 04:57 Neut % (Auto) 92.9 % 03/15/23 04:57 Lymph % (Auto) 5.0 % 03/15/23 04:57 [place] % (Auto) 1.3 % 03/15/23 04:57 Eos % (Auto) 0.0 % 03/15/23 04:57 Baso % (Auto) 0.2 % 03/15/23 04:57 Neut # (Auto) 4.42 10^3/uL (1.8-7.7) 03/15/23 04:57 Lymph # (Auto) 0.2 10^3/uL (0.8-4.8) L 03/15/23 04:57 [place] # (Auto) 0.1 10^3/uL (0.2-0.9) L 03/15/23 04:57 Eos # (Auto) 0.0 10^3/uL (0.0-0.8) 03/15/23 04:57 Baso # (Auto) 0.0 10^3/uL (0.0-0.1) 03/15/23 04:57 Nucleated RBC % (auto) 0 % 03/15/23 04:57 Nucleated RBCs # 0.0 /100WBC 03/15/23 04:57 Sodium 138 mmol/L (136-145) 03/15/23 04:57 Potassium 4.6 mmol/L (3.5-5.1) 03/15/23 04:57 Chloride 97 mmol/L (98-107) L 03/15/23 04:57 Carbon Dioxide 24 mmol/L (22-29) 03/15/23 04:57 Anion Gap 21.6 (5-19) H 03/15/23 04:57 BUN 72 mg/dL (8-23) H 03/15/23 04:57 Creatinine 8.3 mg/dL (0.5-0.9) H* 03/15/23 04:57 GFR Calculation Not Reportable 03/15/23 04:57 Glucose 220 mg/dL (65-115) H 03/15/23 04:57 POC Glucose 167 mg/dL (70-110) H 03/15/23 06:38 Calculated Osmolality 314 mOsm/kg (285-295) H 03/15/23 04:57 Lactic Acid 1.0 mmol/L (0.5-2.2) 03/14/23 15:38 Calcium 8.3 mg/dL (8.5-10.5) L 03/15/23 04:57 Magnesium 1.9 mg/dL (1.7-2.3) 03/15/23 04:57 Total Bilirubin 0.3 mg/dL (0.15-1.2) 03/15/23 04:57 AST 15 U/L (0-32) 03/15/23 04:57 ALT 28 U/L (0-33) 03/15/23 04:57 Alkaline Phosphatase 74 U/L (35-105) 03/15/23 04:57 NT-Pro-B Natriuret Pep 46860 pg/mL (0-450) H 03/14/23 15:38 Total Protein 6.4 g/dL (6.6-8.7) L 03/15/23 04:57 Albumin 3.6 g/dL (3.5-5.2) 03/15/23 04:57 Globulin 2.8 g/dL (1.3-4.6) 03/15/23 04:57 Urine Color Yellow (Yellow) 03/15/23 02:25 Urine Appearance Hazy (CLEAR) A 03/15/23 02:25 Urine pH 7 (5-7) 03/15/23 02:25 Ur Specific [place] 1.010 (1.005-1.030) 03/15/23 02:25 Urine Protein 2+ (Negative) H 03/15/23 02:25 Urine Glucose (UA) Norm (Normal) 03/15/23 02:25 Urine Ketones Negative (Negative) 03/15/23 02:25 Urine Blood Neg (Negative) 03/15/23 02:25 Urine Nitrate Negative (Negative) 03/15/23 02:25 Urine Bilirubin Neg (Negative) 03/15/23 02:25 Urine Urobilinogen Norm mg/dL (Negative) 03/15/23 02:25 Ur Leukocyte Esterase Negative (Negative) 03/15/23 02:25 Urine RBC 0-4 /hpf (0-2) H 03/15/23 02:25 Urine WBC 0-4 /hpf (0-5) H 03/15/23 02:25 Ur Squamous Epith Cells 15-25 /hpf (0-5) H 03/15/23 02:25 Amorphous Sediment Trace /hpf 03/15/23 02:25 Urine Bacteria 1+ /hpf (NONE) H 03/15/23 02:25 Hyaline Casts 0-4 /lpf H 03/15/23 02:25 Urine Mucus 1+ /hpf 03/15/23 02:25 Vitals Last Vital Signs Temp 97.6 F 03/15/23 08:04 Pulse 122 H 03/15/23 08:04 Resp 19 H 03/15/23 08:04 BP 137/52 03/15/23 08:43 Pulse Ox 91 03/15/23 08:04 O2 Del Method Nasal Cannula 03/15/23 08:04 O2 Flow Rate 3.5 03/15/23 08:00 Discharge Plan Discharge Patient Disposition: Home Condition: Stable Prescriptions: New lidocaine 5 % Adhesive Patch,Medicated 1 patch topical [id number] Qty: 5 0RF Continued Tradjenta 5 mg tablet 5 mg PO QAM alprazolam 0.25 mg tablet 0.25 mg PO BEDTIME acetaminophen [Tylenol Extra Strength] 500 mg Tablet 500 - 1,000 mg PO Q6H PRN (Reason: Pain) calcium carbonate [Tums] 200 mg calcium (500 mg) Tablet,Chewable 200 mg PO DAILY PRN (Reason: Heartburn) RenaPlex-D 800 mcg-12.5 mg -2,000 unit tablet 1 tab PO QAM atorvastatin 40 mg Tablet 40 mg PO BEDTIME ropinirole 0.25 mg Tablet 0.25 mg PO BEDTIME 50 Plus Adult Eye Health 250-5-1 mg Capsule 1 cap PO QAM fluticasone propionate 50 mcg/actuation [place],Suspension 1 spray INTRANASAL DAILY PRN (Reason: Allergy Symptoms) Rx Instructions: administer into each nostril losartan 50 mg tablet 50 mg PO BID cyanocobalamin (vitamin B-12) [Vitamin B-12] 1,000 mcg Tablet 1,000 mcg PO QAM amlodipine 10 mg tablet 10 mg PO BEDTIME omeprazole 40 mg capsule,delayed release(DR/EC) 40 mg PO BID metoprolol succinate 50 mg tablet extended release 24 hr 25 mg PO DAILY aspirin 81 mg Tablet,Delayed Release (Dr/Ec) 81 mg PO BEDTIME nitroglycerin [Nitrostat] 0.4 mg Tablet, Sublingual 0.4 mg SUBLINGUAL Q5M PRN (Reason: Chest Pain) Rx Instructions: do not exceed 3 doses per episode albuterol sulfate 90 mcg/actuation HFA aerosol inhaler 2 puff INHALATION Q4H PRN (Reason: Shortness Of Breath) Breztri Aerosphere 160-9-4.8 mcg/actuation HFA aerosol inhaler 2 inh INHALATION BID PRN (Reason: unknown) furosemide 40 mg tablet 40 mg PO QAM tizanidine 2 mg tablet 2 mg PO DAILY Fiber Gummies 2 gram Tablet,Chewable 2 g PO QID Colace 100 mg Capsule 200 mg PO BEDTIME Changed hydrocodone-acetaminophen 5-325 mg tablet 1 tab PO Q8H PRN (Reason: Pain, Moderate) Qty: 14 0RF Discharge Orders: Discharge Order (Routine); Ordered 03/15/23 Ordered By: Farheen Stark Other Ambulatory Orders: DME: Huy (Order) Location: None Selected Ordered By: Farheen Stark DME: Jonathan (Order) Location: None Selected Ordered By: Farheen Stark Referrals: Kurt Dunn DO [Physician] - 1 week (We have notified your physician's clinic of the need for a follow-up appointment to be scheduled. If you have not heard from them within the next 2 business days, please call them directly. ) Magdiel Amador MD [Primary Care Provider] - 03/21/23 11:00 am () Discharge Diet: Usual diet Discharge Activity: Increase activity as tolerated Patient Instructions: Lidocaine Patch (On the skin), Dialysis Diet (GEN), Opioid Safety Activity Restrictions/Additional Instructions: Discharge Attestations Time Spent in Discharge Care*: greater than 30 min Status at Discharge: Cognitive status at discharge: cognitively intact , Behavioral status at discharge: cooperative , Quality Metrics Clinical Quality Measures [ No reported AMI, CVA or VTE this stay] Coding Level of Care Code 71231 Total time (in minutes) for Discharge: 31 Diagnoses Intractable low back pain M54.59
[2023-03-15] MEDS: ondansetron 2 mg/ML SDV 2 mL 4 MG IVP (15:07)
== END 2023-03-15 15:31 | disposition home or self-care (01) ==
LOC: ER 13:09 → MEDSURG 18:39
PROVIDERS: Hospitalist; Admitting Provider Internal Medicine; Emergency Provider Emergency Medicine; PCP Family Medicine; Visit Provider Internal Medicine
DX: M54.50 Low back pain, unspecified (principal); I50.33 Acute on chronic diastolic (congestive) heart failure; E11.22 Type 2 diabetes mellitus with diabetic chronic kidney disease; I13.0 Hypertensive heart and chronic kidney disease with heart failure and stage 1 through stage 4 chronic kidney disease, or unspecified chronic kidney disease; N18.6 End stage renal disease; Z99.2 Dependence on renal dialysis; D63.1 Anemia in chronic kidney disease; J44.9 Chronic obstructive pulmonary disease, unspecified; I25.10 Atherosclerotic heart disease of native coronary artery without angina pectoris; I48.91 Unspecified atrial fibrillation; Z95.0 Presence of cardiac pacemaker; M48.07 Spinal stenosis, lumbosacral region; Z87.891 Personal history of nicotine dependence; I35.0 Nonrheumatic aortic (valve) stenosis; I48.0 Paroxysmal atrial fibrillation; N39.0 Urinary tract infection, site not specified; J84.9 Interstitial pulmonary disease, unspecified
CPT/HCPCS: 20552; 36415; 36416; 51798; 71045; 72131; 80048; 80053; 81001; 82962; 83605; 83735; 83880; 85025; 94664; 96372; 96374; 96375; 97161; 97530; 99285; G0378; J1100; J1644; J1940; J2405; J3490; Q4081

== ENCOUNTER → 2023-03-27 14:27 | Outpatient (BNVA) | payer MEDICARE, MEDICAID, SELFPAY | PROVIDERS: PCP Family Medicine; Visit Provider Orthopaedic Surgery | DX: G89.29 Other chronic pain; M51.17 Intervertebral disc disorders with radiculopathy, lumbosacral region; M47.817 Spondylosis without myelopathy or radiculopathy, lumbosacral region; N18.9 Chronic kidney disease, unspecified; M81.0 Age-related osteoporosis without current pathological fracture | CPT/HCPCS: 99214 ==

== ENCOUNTER → 2023-04-30 12:46 | Outpatient (BNVA) | payer MEDICARE, MEDICAID, SELFPAY | PROVIDERS: PCP Family Medicine; Visit Provider Internal Medicine | DX: Z45.010 Encounter for checking and testing of cardiac pacemaker pulse generator [battery] (principal) | CPT/HCPCS: 93296 ==

== ENCOUNTER 2023-05-29 11:44 | Emergency (ER) | payer MEDICARE, MEDICAID, SELFPAY ==
[2023-05-29 11:45] VITALS: BP 157/49; PULSE 63; RESP 16; TEMP 36.4; O2SAT 94; BMI 21.5
--- NOTE | 2023-05-29 11:59 | ED_ITS ---
HPI - Skin/Abscess/Foreign Bdy 2 General: Chief complaint: Skin/Abscess/Foreign Body Stated complaint: bleeding from fistula Time Seen by Provider: 05/29/23 11:46 Source: patient Mode of arrival: ambulatory Limitations: no limitations History of Present Illness: 88-year-old female who is a dialysis pat ient she states she received dialysis yesterday and had an episode of bleeding from the site states that bled again this morning is now since resolved she has no bleeding currently. She is not on any blood thinners denies any lightheadedness. Associated symptoms: Deny chills, fever(s), nausea or vomiting Review of Systems 2 Const: Denies: fever(s), chills, body aches or change in appetite ENMT: Denies: throat pain or dental pain Card: Denies: chest pain Resp: Denies: dyspnea GI: Denies: abdominal pain, nausea, vomiting or diarrhea Musc: Denies: neck pain or back pain Skin/Breast: Denies: rash Neuro: Denies: headache(s) PFSH ED 2 PFSH: Medical History Severe aortic stenosis Hiatal hernia Gastritis Exertional dyspnea Recurrent aspiration events Dysphagia Esophageal dysmotility Dark stools Cough Hematochezia Coronary artery disease Intermittent atrial fibrillation COPD (chronic obstructive pulmonary disease) Carotid stenosis Interstitial lung disease Diastolic congestive heart failure GERD (gastroesophageal reflux disease) Anemia Diabetes Essential hypertension End stage renal disease Third degree heart block Status post pacemaker placement Surgical History Status post colonoscopy (12/30/19) History of laparoscopic cholecystectomy S/P hemodialysis catheter insertion History of permanent cardiac pacemaker placement History of tubal ligation Hemodialysis access site with arteriovenous graft Family History Mother Cancer Lung cancer Father Diabetes Other CAD (coronary artery disease) Denies family history of Anesthesia complication Bleeding disorder Social History Smoking and tobacco/nicotine status: former use of tobacco/nicotine Quit status (tobacco/nicotine): has quit using Year quit tobacco: 1983 Former quit date comment: 2ppd x 19 years Alcohol intake: never Substance/Drug Use: never Physical Exam 2 Const: COMMON NORMALS: no acute distress, patient oriented x3 and healthy appearing HENMT: COMMON NORMALS: normocephalic and atraumatic HEAD & SCALP: n ormocephalic and atraumatic Neck/C-Spine: COMMON NORMALS: full ROM and supple Chest: COMMONS NORMALS: normal inspection of the chest Resp: COMMON NORMALS: normal respiratory effort Cardio: COMMON NORMALS: regular rate RATE: regular rate GI: COMMON NORMALS: Normal to inspection, nondistended, normoactive bowel sounds present Extremity: COMMON NORMALS: normal to inspection Neuro: COMMON NORMALS: patient oriented x3, moves all extremities and no focal motor deficits Psych: COMMON NORMALS: mental status grossly normal Skin: NARRATIVE SKIN EXAM: No bleeding at dialysis site Course 2 Vital Signs: Vital signs: Vital Signs Temperature 97.6 F 05/29/23 13:33 Pulse Rate 66 05/29/23 13:33 Respiratory Rate 16 05/29/23 13:33 Blood Pressure 138/55 05/29/23 13:33 Pulse Oximetry 98 05/29/23 13:33 Oxygen Delivery Me thod Nasal Cannula 05/29/23 12:11 Oxygen Flow Rate 3 05/29/23 12:11 MDM - Skin/Abscess/Foreign Bdy Medicial Decision Making Patient presents here with bleeding from her AV fistula since stopped she had no bleeding here hemoglobin stable she has a good palpable thrill of the AV fistula she does receive dialysis tomorrow she return if she has any bleeding she understands agrees to plan. Medical Records I reviewed the patient's medical records. Lab Data I reviewed the patient's lab results. 05/29/23 12:50 Laboratory Results WBC 6.55 10^3/uL (3.29-11.43) 05/29/23 12:50 RBC 2.80 10^6/uL (3.85-5.65) L 05/29/23 12:50 Hgb 8.50 g/dL (11.27-16.99) L 05/29/23 12:50 Hct 28.1 % (36-47) L 05/29/23 12:50 MCV 100.4 fl (85-98) H 05/29/23 12:50 MCH 30.4 pg (27-33) 05/29/23 12:50 MCHC 30.2 g/dL (30-55) 05/29/23 12:50 RDW 14.6 % (12.1-15.1) 05/29/23 12:50 Plt Count 257 10^3/cmm (157-399) 05/29/23 12:50 MPV 11.1 fL (7.4-10.4) H 05/29/23 12:50 Neut % (Auto) 77.7 % 05/29/23 12:50 Lymph % (Auto) 10.7 % 05/29/23 12:50 [place] % (Auto) 8.5 % 05/29/23 12:50 Eos % (Auto) 2.0 % 05/29/23 12:50 Baso % (Auto) 0.9 % 05/29/23 12:50 Neut # (Auto) 5.09 10^3/uL (1.8-7.7) 05/29/23 12:50 Lymph # (Auto) 0.7 10^3/uL (0.8-4.8) L 05/29/23 12:50 [place] # (Auto) 0.6 10^3/uL (0.2-0.9) 05/29/23 12:50 Eos # (Auto) 0.1 10^3/uL (0.0-0.8) 05/29/23 12:50 Baso # (Auto) 0.1 10^3/uL (0.0-0.1) 05/29/23 12:50 Nucleated RBC % (auto) 0 % 05/29/23 12:50 Nucleated RBCs # 0.0 /100WBC 05/29/23 12:50 No radiology studies performed this visit Discharge Plan Discharge Patient Disposition: Home Clinical Impression: Hemorrhage of arteriovenous fistula Condition: Stable Prescriptions: No Action Tradjenta 5 mg tablet 5 mg PO QAM alprazolam 0.25 mg tablet 0.25 mg PO BEDTIME acetaminophen [Tylenol Extra Strength] 500 mg Tablet 500 - 1,000 mg PO Q6H PRN (Reason: Pain) calcium carbonate [Tums] 200 mg calcium (500 mg) Tablet,Chewable 200 mg PO DAILY PRN (Reason: Heartburn) atorvastatin 40 mg Tablet 40 mg PO BEDTIME ropinirole 0.25 mg Tablet 0.25 mg PO BEDTIME RenaPlex 800 mcg- 12.5 mg tablet 1 tab PO DAILY 50 Plus Adult Eye Health 250-5-1 mg Capsule 1 cap PO QAM fluticasone propionate 50 mcg/actuation [place],Suspension 1 spray INTRANASAL DAILY PRN (Reason: Allergy Symptoms) Rx Instructions: administer into each nostril losartan 50 mg tablet 50 mg PO BID cyanocobalamin (vitamin B-12) [Vitamin B-12] 1,000 mcg Tablet 1,000 mcg PO QAM amlodipine 10 mg tablet 10 mg PO BEDTIME omeprazole 40 mg capsule,delayed release(DR/EC) 40 mg PO BID metoprolol succinate 50 mg tablet extended release 24 hr 25 mg PO DAILY aspirin 81 mg Tablet,Delayed Release (Dr/Ec) 81 mg PO BEDTIME nitroglycerin [Nitrostat] 0.4 mg Tablet, Sublingual 0.4 mg SUBLINGUAL Q5M PRN (Reason: Chest Pain) Rx Instructions: do not exceed 3 doses per episode albuterol sulfate 90 mcg/actuation HFA aerosol inhaler 2 puff INHALATION Q4H PRN (Reason: Shortness Of Breath) Breztri Aerosphere 160-9-4.8 mcg/actuation HFA aerosol inhaler 2 inh INHALATION BID PRN (Reason: unknown) furosemide 40 mg tablet 40 mg PO QAM Fiber Gummies 2 gram Tablet,Chewable 2 g PO QID docusate sodium [Colace] 100 mg Capsule 200 mg PO BEDTIME hydrocodone-acetaminophen 5-325 mg tablet 1 tab PO Q8H PRN (Reason: Pain, Moderate) Qty: 14 0RF Discharge Orders: Discharge ED (Routine); Ordered 05/29/23 Ordered By: Brian Sanchez Referrals: Magdiel Amador MD [Primary Care Provider] - 1-3 days Discharge Diet: Advance as tolerated Discharge Activity: Resume usual activity Patient Instructions: AV Fistula Care Coding Level of Care Code ED [employer] 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
[2023-05-29 12:11] VITALS: BP 138/55; PULSE 66; O2SAT 98
--- NOTE | 2023-05-29 12:37 | PC.PHAR ---
pts daughter verified pts medications-pts daughter states the pt takes renaplex d daily ext shows renaplex d last filled 08/21/22 90d/s-ext also shows [facility] sent renaplex one tab daily filled 04/21/23 90d/s-pts daughter states the pt takes metoprolol succ er 50mg takes 1/2 tab (25mg) bedtime ext shows last filled 05/27/23 90d/s 50mg daily-pts daughter states the pt gets tradjenta 5mg from the drs office-
[2023-05-29 13:07] LABS: Basophils # 0.1 10^3/uL (0.0-0.1); Basophils % 0.9 %; Eosinophils # 0.1 10^3/uL (0.0-0.8); Hematocrit 28.1 % (36-47); Lymphocytes # 0.7 10^3/uL (0.8-4.8); Lymphocytes % 10.7 %; Mean Corpuscular HGB Conc 30.2 g/dL (30-55); Mean Corpuscular Hemoglobin 30.4 pg (27-33); Mean Corpuscular Volume 100.4 fl (85-98); Mean Platelet Volume 11.1 fL (7.4-10.4); Monocytes # 0.6 10^3/uL (0.2-0.9); Monocytes % 8.5 %; Neutrophils # 5.09 10^3/uL (1.8-7.7); Neutrophils % 77.7 %; Nucleated Red Blood Cells % 0 %; Platelet Count 257 10^3/cmm (157-399); Red Cell Distribution Width 14.6 % (12.1-15.1); White Blood Count 6.55 10^3/uL (3.29-11.43)
[2023-05-29 13:33] VITALS: BP 138/55; PULSE 66; RESP 16; TEMP 36.4; O2SAT 98
== END 2023-05-29 13:34 | disposition home or self-care (01) ==
PROVIDERS: Emergency Provider Emergency Medicine; PCP Family Medicine
DX: T82.838A Hemorrhage due to vascular prosthetic devices, implants and grafts, initial encounter (principal); Y71.1 Therapeutic (nonsurgical) and rehabilitative cardiovascular devices associated with adverse incidents; Z79.82 Long term (current) use of aspirin; Z87.891 Personal history of nicotine dependence; I25.10 Atherosclerotic heart disease of native coronary artery without angina pectoris; J44.9 Chronic obstructive pulmonary disease, unspecified; E11.22 Type 2 diabetes mellitus with diabetic chronic kidney disease; I13.2 Hypertensive heart and chronic kidney disease with heart failure and with stage 5 chronic kidney disease, or end stage renal disease; I50.9 Heart failure, unspecified; N18.6 End stage renal disease; Z99.2 Dependence on renal dialysis; Z95.0 Presence of cardiac pacemaker
CPT/HCPCS: 36415; 85025; 99283

== ENCOUNTER 2023-06-04 10:33 | Observation (INO) | payer MEDICARE, MEDICAID, SELFPAY ==
[2023-06-04] VITALS (11 sets, daily range): BP systolic 133–165; BP diastolic 49–63; PULSE 63–79; RESP 16–18; TEMP 36.3–36.8; O2SAT 91–98; BMI 20.7; BMI 20.3
--- NOTE | 2023-06-04 10:35 | XRR_ITS ---
PROCEDURE INFORMATION: Exam: XR Chest Exam date and time: 06/04/2023 10:55 AM Age: 88 years old Clinical indication: Shortness of breath; Patient HX: AMS; Additional info: SOB TECHNIQUE: Imaging protocol: Radiologic exam of the chest. Views: 1 view. COMPARISON: CR XR chest 2V* [id number] 04/28/2023 1:43 PM FINDINGS: Tubes, catheters and devices: Cardiac pacemaker on the left with leads in satisfactory position. Lungs: See Heart/Mediastinum finding. Pleural spaces: Unremarkable. No pleural effusion. No pneumothorax. Heart/Mediastinum: There is evidence of cardiomegaly and both lungs demonstrate chronic interstitial coarsening. No lung mass or infiltrate. Bones/joints: Unremarkable. XR/XR chest 1V portable [id number] IMPRESSION: 1. No acute findings. 2. Chronic lung changes noted
--- NOTE | 2023-06-04 11:11 | CT_ITS ---
WS: [id number] CT HEAD NONCONTRAST HISTORY: ams TECHNIQUE: Contiguous axial imaging performed through the brain in 2.5 mm imaging. Bone and soft tiss ue windows. Sagittal and coronal reformats reviewed. All CT scans at [facility] use at least one of these dose optimization techniques: automated exposure control; mA and/or kV adjustment per pa tient size (includes targeted exams where dose is matched to clinical indication); or iterative recon struction. DLP: 972.08 mGy.cm COMPARISON: 10/11/2021 No acute intracranial hemorrhage, midline shift or mass effect. Mild atrophy and small vessel ischemic disease. No interval change since the prior study. Ventricles: Normal size with no hydrocephalus. No inferior displacement of the cerebellar tonsils. Paranasal sinuses: As visualized are clear. Mastoid air cells: Well pneumatized. Calvarium and scalp: Skull is intact with no soft tissue edema or swelling. IMPRESSION: 1. No acute intracranial hemorrhage or edema. 2. Mild atrophy and mild small vessel ischemic disease. No hydrocephalus.
--- NOTE | 2023-06-04 11:14 | ECG_ITS ---
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 Measurements Intervals [place] Rate: 66 P: 82 PA: 194 QRS: -68 QRSD: 169 T: 84 QT: 484 QTc: 508 Interpretive Statements ELECTRONIC VENTRICULAR PACEMAKER A sensed V pacing ABNORMAL RHYTHM ECG Compared to ECG 02/28/2023 15:27:25 Atrial-paced complex(es) or rhythm no longer present Electronically Signed On 06-04-2023 18:41:36 CDT by Alessandro Carney M.D. [email or web address]
--- NOTE | 2023-06-04 11:16 | ED_ITS ---
HPI - Altered Mental Status 2 General: Chief Complaint: Altered Mental Status Stated Complaint: Confusion / Dizzy Time Seen by Provider: 06/04/23 10:59 Source: patient Mode of arrival: ambulatory Limitations: no limitations History of Present Illness: 88-year-old female with a history of end -stage renal disease per daughter she has had increased confusion since Friday she said that she is just been talking out of her head has been confused it has been waxing and waning she is also been seeing things patient states she just does not feel right she denies any pain anywhere denies any headache she had some slight swelling over her AV fistula on the left but has been working well at dialysis she has not missed any dialysis appointments. Review of Systems 2 Const: Denies: fever(s) or chills ENMT: Denies: throat pain or dental pain Card: Denies: chest pain Resp: Denies: dyspnea GI: Denies: abdominal pain, nausea, vomiting or diarrhea Musc: Denies: neck pain or back pain Skin/Breast: Denies: rash Neuro: Reports: confusion; Denies: headache(s) PFSH ED 2 PFSH: Medical History Severe aortic stenosis Hiatal hernia Gastritis Exertional dyspnea Recurrent aspiration events Dysphagia Esophageal dysmotility Dark stools Cough Hematochezia Coronary artery disease Intermittent atrial fibrillation COPD (chronic obstructive pulmonary disease) Carotid stenosis Interstitial lung disease Diastolic congestive heart failure GERD (gastroesophageal reflux disease) Anemia Diabetes Essential hypertension End stage renal disease Third degree heart block Status post pacemaker placement Surgical History Status post colonoscopy (12/30/19) History of laparoscopic cholecystectomy S/P hemodialysis catheter insertion History of permanent cardiac pacemaker placement History of tubal ligation Hemodialysis access site with arteriovenous graft Family History Mother Cancer Lung cancer Father Diabetes Other CAD (coronary artery disease) Denies family history of Anesthesia complication Bleeding disorder Social History Smoking and tobacco/nicotine status: former use of tobacco/nicotine Quit status (tobacco/nicotine): has quit using Year quit tobacco: 1983 Former quit date comment: 2ppd x 19 years Alcohol intake: never Substance/Drug Use: never Course 2 Vital Signs: Vital signs: Vital Signs Temperature 97.9 F 06/04/23 10:41 Pulse Rate 79 06/04/23 12:34 Respiratory Rate 18 06/04/23 14:00 Blood Pressure 139/49 06/04/23 14:00 Pulse Oximetry 91 06/04/23 14:00 Oxygen Delivery Me thod Nasal Cannula 06/04/23 14:00 Oxygen Flow Rate 3 06/04/23 14:00 MDM - Altered Mental Status Medical Decision Making Patient presents with altered mental status she is answering my questions appropriately currently states it waxes and wanes workup here normal so far but will admit for observation for the increased confusion Medical Records I reviewed the patient's medical records. Lab Data I reviewed the patient's lab results. 06/04/23 11:39 06/04/23 11:39 Radiology Impressions Chest X-Ray 06/04/23 10:35 IMPRESSION: 1. No acute findings. 2. Chronic lung changes noted Venous Duplex 06/04/23 11:17 IMPRESSION: No evidence of deep vein thrombosis. Patent AV graft. Laboratory Results WBC 6.34 10^3/uL (3.29-11.43) 06/04/23 11:39 RBC 2.83 10^6/uL (3.85-5.65) L 06/04/23 11:39 Hgb 8.80 g/dL (11.27-16.99) L 06/04/23 11:39 Hct 28.3 % (36-47) L 06/04/23 11:39 MCV 100.0 fl (85-98) H 06/04/23 11:39 MCH 31.1 pg (27-33) 06/04/23 11:39 MCHC 31.1 g/dL (30-55) 06/04/23 11:39 RDW 14.6 % (12.1-15.1) 06/04/23 11:39 Plt Count 221 10^3/cmm (157-399) 06/04/23 11:39 MPV 11.0 fL (7.4-10.4) H 06/04/23 11:39 Neut % (Auto) 73.6 % 06/04/23 11:39 Lymph % (Auto) 12.3 % 06/04/23 11:39 [place] % (Auto) 11.0 % 06/04/23 11:39 Eos % (Auto) 2.2 % 06/04/23 11:39 Baso % (Auto) 0.6 % 06/04/23 11:39 Neut # (Auto) 4.66 10^3/uL (1.8-7.7) 06/04/23 11:39 Lymph # (Auto) 0.8 10^3/uL (0.8-4.8) 06/04/23 11:39 [place] # (Auto) 0.7 10^3/uL (0.2-0.9) 06/04/23 11:39 Eos # (Auto) 0.1 10^3/uL (0.0-0.8) 06/04/23 11:39 Baso # (Auto) 0.0 10^3/uL (0.0-0.1) 06/04/23 11:39 Nucleated RBC % (auto) 0 % 06/04/23 11:39 Nucleated RBCs # 0.0 /100WBC 06/04/23 11:39 PT 14.70 SECONDS (12.1-14.9) 06/04/23 11:39 INR 1.12 (0.8-1.2) 06/04/23 11:39 Sodium 142 mmol/L (136-145) 06/04/23 11:39 Potassium 4.0 mmol/L (3.5-5.1) 06/04/23 11:39 Chloride 97 mmol/L (98-107) L 06/04/23 11:39 Carbon Dioxide 34 mmol/L (22-29) H 06/04/23 11:39 Anion Gap 15.0 (5-19) 06/04/23 11:39 BUN 20 mg/dL (8-23) 06/04/23 11:39 Creatinine 4.4 mg/dL (0.5-0.9) H 06/04/23 11:39 GFR Calculation Not Reportable 06/04/23 11:39 Glucose 103 mg/dL (65-115) 06/04/23 11:39 Calculated Osmolality 297 mOsm/kg (285-295) H 06/04/23 11:39 Calcium 8.4 mg/dL (8.5-10.5) L 06/04/23 11:39 Magnesium 1.7 mg/dL (1.7-2.3) 06/04/23 11:39 Total Bilirubin 0.3 mg/dL (0.15-1.2) 06/04/23 11:39 AST 19 U/L (0-32) 06/04/23 11:39 ALT 11 U/L (0-33) 06/04/23 11:39 Alkaline Phosphatase 79 U/L (35-105) 06/04/23 11:39 NT-Pro-B Natriuret Pep 99830 pg/mL (0-450) H 06/04/23 11:39 Total Protein 6.1 g/dL (6.6-8.7) L 06/04/23 11:39 Albumin 3.5 g/dL (3.5-5.2) 06/04/23 11:39 Globulin 2.6 g/dL (1.3-4.6) 06/04/23 11:39 TSH 6.20 uIU/mL (0.27-4.20) H 06/04/23 11:39 All radiology interpretation(s) finalized by discharge EKG Data EKG 1: I personally reviewed and interpreted this EKG as follows: EKG interpretation date: 06/04/23 EKG interpretation time: 11:14 Interpretation: paced hr [address] or t wave abnormalities qrs 169 qtc 497 Discharge Plan Discharge Patient Disposition: Placed in Observation Clinical Impression: Altered mental status, Chronic kidney disease with end stage renal failure on dialysis Condition: Stable Prescriptions: No Action Tradjenta 5 mg tablet 5 mg PO QAM alprazolam 0.25 mg tablet 0.25 mg PO BEDTIME acetaminophen [Tylenol Extra Strength] 500 mg Tablet 500 - 1,000 mg PO Q6H PRN (Reason: Pain) calcium carbonate [Tums] 200 mg calcium (500 mg) Tablet,Chewable 200 mg PO DAILY PRN (Reason: Heartburn) atorvastatin 40 mg Tablet 40 mg PO BEDTIME ropinirole 0.25 mg Tablet 0.25 mg PO BEDTIME RenaPlex 800 mcg- 12.5 mg tablet 1 tab PO DAILY 50 Plus Adult Eye Health 250-5-1 mg Capsule 1 cap PO QAM fluticasone propionate 50 mcg/actuation [place],Suspension 1 spray INTRANASAL DAILY PRN (Reason: Allergy Symptoms) Rx Instructions: administer into each nostril losartan 50 mg tablet 50 mg PO BID cyanocobalamin (vitamin B-12) [Vitamin B-12] 1,000 mcg Tablet 1,000 mcg PO QAM amlodipine 10 mg tablet 10 mg PO BEDTIME omeprazole 40 mg capsule,delayed release(DR/EC) 40 mg PO BID metoprolol succinate 50 mg tablet extended release 24 hr 25 mg PO DAILY aspirin 81 mg Tablet,Delayed Release (Dr/Ec) 81 mg PO BEDTIME nitroglycerin [Nitrostat] 0.4 mg Tablet, Sublingual 0.4 mg SUBLINGUAL Q5M PRN (Reason: Chest Pain) Rx Instructions: do not exceed 3 doses per episode albuterol sulfate 90 mcg/actuation HFA aerosol inhaler 2 puff INHALATION Q4H PRN (Reason: Shortness Of Breath) Breztri Aerosphere 160-9-4.8 mcg/actuation HFA aerosol inhaler 2 inh INHALATION BID PRN (Reason: unknown) furosemide 40 mg tablet 40 mg PO QAM Fiber Gummies 2 gram Tablet,Chewable 2 g PO QID docusate sodium [Colace] 100 mg Capsule 200 mg PO BEDTIME hydrocodone-acetaminophen 5-325 mg tablet 1 tab PO Q8H PRN (Reason: Pain, Moderate) Qty: 14 0RF Referrals: Magdiel Amador MD [Primary Care Provider] - Patient Instructions: Altered Mental Status (ED) Coding Level of Care Code ED [employer] [facility] for [facility]
--- NOTE | 2023-06-04 11:17 | USR_ITS ---
PROCEDURE INFORMATION: Exam: US Duplex Left Upper Extremity Veins, Limited Exam date and time: 06/04/2023 12:06 PM Age: 88 years old Clinical indication: Swelling (edema) of limb; Upper extremity, left; Prior surgery; Surgery date: 6+ months; Surgery type: Av fistula TECHNIQUE: Imaging protocol: Real-time duplex ultrasound of the left extremity with 2-D lam scale, color Doppler flow and spectral waveform analysis including responses to compression and other maneuvers (when performed) with image documentation. Limited exam focused on the left upper extremity veins. COMPARISON: US soft tissue/extremity [id number] 06/16/2019 10:22 AM FINDINGS: Left deep veins: Unremarkable. Axillary and brachial veins are patent throughout without thrombus. Normal Doppler waveforms. Normal compressibility and/or augmentation response. Visualized internal jugular and subclavian veins are patent. There is a widely patent loop Gortex graft. Superficial veins: Unremarkable. Visualized cephalic and basilic veins are patent without thrombus. Soft tissues: Unremarkable. US/[place] [id number] IMPRESSION: No evidence of deep vein thrombosis. Patent AV graft.
--- NOTE | 2023-06-04 11:33 | PC.PHAR ---
Addendum entered by Maria Luz Romero 06/04/23 11:37: see notes made on 05/31/23 Original Note: pts daughter states the pt was just seen on 05/31/23 and states went over med list then states that nothing has changed and all meds are the same as when pt was seen 05/31/23
[2023-06-04 12:21] LABS: Basophils % 0.6 %; Eosinophils # 0.1 10^3/uL (0.0-0.8); Eosinophils % 2.2 %; Hematocrit 28.3 % (36-47); Lymphocytes # 0.8 10^3/uL (0.8-4.8); Lymphocytes % 12.3 %; Mean Corpuscular HGB Conc 31.1 g/dL (30-55); Mean Corpuscular Hemoglobin 31.1 pg (27-33); Monocytes # 0.7 10^3/uL (0.2-0.9); Neutrophils # 4.66 10^3/uL (1.8-7.7); Neutrophils % 73.6 %; Nucleated Red Blood Cells % 0 %; Platelet Count 221 10^3/cmm (157-399); Red Blood Count 2.83 10^6/uL (3.85-5.65); Red Cell Distribution Width 14.6 % (12.1-15.1); White Blood Count 6.34 10^3/uL (3.29-11.43)
[2023-06-04 12:34] LABS: INR 1.12 (0.8-1.2)
[2023-06-04 12:51] LABS: Alanine Aminotransferase 11 U/L (0-33); Albumin Level 3.5 g/dL (3.5-5.2); Alkaline Phosphatase 79 U/L (35-105); Aspartate Amino Transferase 19 U/L (0-32); Blood Urea Nitrogen 20 mg/dL (8-23); Calcium 8.4 mg/dL (8.5-10.5); Carbon Dioxide 34 mmol/L (22-29); Chloride 97 mmol/L (98-107); Creatinine Clr Calc Pharmacy 6.9165; Globulin 2.6 g/dL (1.3-4.6); Glucose 103 mg/dL (65-115); Magnesium 1.7 mg/dL (1.7-2.3); Osmolality Calculated 297 mOsm/kg (285-295); Sodium 142 mmol/L (136-145); Total Bilirubin 0.3 mg/dL (0.15-1.2); Total Protein 6.1 g/dL (6.6-8.7)
[2023-06-04 13:41] LABS: NT Pro B Type Natriuretic Pept 67587 pg/mL (0-450)
--- NOTE | 2023-06-04 14:00 | PM.HP ---
Providers/Chief Complaint Primary Care Provider: Magdiel Amador MD Chief Complaint: Confusion / Dizzy History of Present Illness Galina Saba is a 88 year old female with past medical history of left lower lobe pneumonia, partial small bowel obstruction, ESRD on dialysis MWF, chronic diastolic heart failure, generalized weakness, COPD, anemia of chronic disease, coronary artery disease, atrial fibrillation, hypertension, aortic stenosis, interstitial lung disease, complete heart block status post pacemaker placement on supplemental oxygen at 3 L nasal cannula, was brought in by family for episodes of confusion and hallucinations since 3 days. As per the daughter she was getting more confused in the evenings and has been having hallucinations for last 3 days. Patient herself admits seeing people and talking to her, also while waiting in the ER she felt like the floor and the wheelchair is moving. She is otherwise independent, moves around in the house with a walker. Denies any history of fever cold cough chest pain shortness of breath nausea vomiting or diarrhea or pain. But admits to having allergy-like symptoms/sneezing recently for the last 3 to 4 days .last HD was on Friday. No history of recent change in medications. Currently she is feeling normal no hallucinations, and is alert and oriented x 3. She was admitted to the hospital 1 week ago for low back pain and was treated conservatively by Dr. Dunn. Review of Systems General: Reports: 10 or more systems reviewed and unremarkable except in HPI and below Medications/Allergies Home Medications Medication Instructions Recorded Confirmed Last Taken Type linagliptin 5 mg tablet (Tradjenta) 5 mg PO QAM 04/15/19 06/04/23 05/29/23 History atorvastatin 40 mg tablet 40 mg PO BEDTIME 11/17/19 06/04/23 05/28/23 History acetaminophen 500 mg tablet 500 - 1,000 mg PO Q6H PRN Pain 07/31/20 06/04/23 06/26/22 18:00 History (Tylenol Extra Strength) calcium carbonate 200 mg calcium 200 mg PO DAILY PRN Heartburn 07/31/20 06/04/23 12/03/22 History (500 mg) chewable tablet (Tums) fluticasone propionate 50 1 spray intranasal DAILY PRN 07/30/21 06/04/23 12/03/22 History mcg/actuation nasal Allergy Symptoms spray,suspension vit C,E,zinc,copper-mrbyg4a 250 1 cap PO QAM 07/30/21 06/04/23 05/29/23 History mg-lutein 5 mg-zeaxanthin 1 mg capsule (50 Plus Adult Eye Health) amlodipine 10 mg tablet 10 mg PO BEDTIME 10/11/21 06/04/23 05/28/23 History cyanocobalamin (vitamin B-12) 1,000 mcg PO QAM 10/11/21 06/04/23 05/29/23 History 1,000 mcg tablet (Vitamin B-12) omeprazole 40 mg capsule,delayed 40 mg PO BID 10/11/21 06/04/23 05/29/23 History release ropinirole 0.25 mg tablet 0.25 mg PO BEDTIME 05/13/22 06/04/23 05/28/23 History alprazolam 0.25 mg tablet 0.25 mg PO BEDTIME 07/09/22 06/04/23 05/28/23 History losartan 50 mg tablet 50 mg PO BID 07/09/22 06/04/23 05/29/23 History albuterol sulfate 90 mcg/actuation 2 puff inhalation Q4H PRN 11/11/22 06/04/23 Unknown History aerosol inhaler Shortness Of Breath aspirin 81 mg tablet,delayed 81 mg PO BEDTIME 11/11/22 06/04/23 05/28/23 History release budesonide 160 mcg-glycopyr 9 2 inh inhalation BID PRN unknown 11/11/22 06/04/23 Unknown History mcg-formot 4.8 mcg/actuation HFA inhaler (Breztri Aerosphere) furosemide 40 mg tablet 40 mg PO QAM 11/11/22 06/04/23 05/29/23 History metoprolol succinate 50 mg 25 mg PO DAILY 11/11/22 06/04/23 05/28/23 History tablet,extended release 24 hr nitroglycerin 0.4 mg sublingual 0.4 mg sublingual Q5M PRN Chest 11/11/22 06/04/23 Unknown History tablet (Nitrostat) Pain docusate sodium 100 mg capsule 200 mg PO BEDTIME 03/14/23 06/04/23 05/28/23 History (Colace) inulin 2 gram chewable tablet 2 g PO QID 03/14/23 06/04/23 05/29/23 History (Fiber Gummies) hydrocodone 5 mg-acetaminophen 325 1 tab PO Q8H PRN Pain, Moderate 03/15/23 06/04/23 Unknown Rx mg tablet #14 tabs vitamin B complex with vit C-folic 1 tab PO DAILY 05/29/23 06/04/23 Unknown History acid 800 mcg-zinc 12.5 mg tablet (RenaPlex) Allergies Allergy/AdvReac Type Severity Reaction Status Date / Time lisinopril Allergy Unknown Unknown Verified 06/04/23 10:46 morphine AdvReac Intermediate ADR-Nausea Verified 06/04/23 10:46 PFSH Acute PFSH: Medical History Severe aortic stenosis Hiatal hernia Gastritis Exertional dyspnea Recurrent aspiration events Dysphagia Esophageal dysmotility Dark stools Cough Hematochezia Coronary artery disease Intermittent atrial fibrillation COPD (chronic obstructive pulmonary disease) Carotid stenosis Interstitial lung disease Diastolic congestive heart failure GERD (gastroesophageal reflux disease) Anemia Diabetes Essential hypertension End stage renal disease Third degree heart block Status post pacemaker placement Surgical History Status post colonoscopy (12/30/19) History of laparoscopic cholecystectomy S/P hemodialysis catheter insertion History of permanent cardiac pacemaker placement History of tubal ligation Hemodialysis access site with arteriovenous graft Family History Mother Cancer Lung cancer Father Diabetes Other CAD (coronary artery disease) Denies family history of Anesthesia complication Bleeding disorder Social History Smoking and tobacco/nicotine status: former use of tobacco/nicotine Quit status (tobacco/nicotine): has quit using Year quit tobacco: 1983 Former quit date comment: 2ppd x 19 years Alcohol intake: never Substance/Drug Use: never Vitals/I&O/Wt Last Vital Signs Temp 97.9 F 06/04/23 10:41 Pulse 79 06/04/23 12:34 Resp 16 06/04/23 12:34 BP 147/52 06/04/23 12:34 Pulse Ox 97 06/04/23 12:34 O2 Del Method Nasal Cannula 06/04/23 12:34 O2 Flow Rate 3 06/04/23 12:34 Weight last 48 hrs Weight 49.895 kg Physical Exam Narrative: She is alert awake oriented x 3 not in acute distress Chest is clear to auscultation bilaterally Cardiovascular normal heart sounds no murmurs Abdomen NAD Extremities no edema Data 06/04/23 11:39 06/04/23 11:39 A&P Assessment and plan (1) Altered mental status: (2) End stage renal disease on dialysis: (3) Partial small bowel obstruction: (4) Essential hypertension: (5) Diarrhea: (6) Left lower lobe pneumonia: (7) Chronic anemia: (8) Hypothyroidism: (9) COPD (chronic obstructive pulmonary disease): (10) Intermittent atrial fibrillation: (11) Coronary artery disease: Qualifiers: Associated angina: without angina Coronary Disease-Associated Artery/Lesion type: [place] artery [place] vs. transplanted heart: [place] heart Qualified Code(s): I25.10 - Atherosclerotic heart disease of [place] coronary artery without angina pectoris Plan 1. Altered mental status likely secondary to psychological disorder No active signs of infection or fluid overload Psychiatric consult to evaluate for sudden confusion and hallucinations 2. Hypothyroidism-new onset Will start levothyroxine 25 mcg daily 3. Resume home medications 4. GI prophylaxis with p.o. omeprazole twice daily 5. DVT prophylaxis with subcutaneous Lovenox 30 mg daily 6. CODE STATUS discussed with the patient and her daughter, she is full code for now . Attestations Medical Necessity Statement*: She is here for observation for altered mental status confusion and hallucinations. Needs psychiatric: Evaluation for acute change in mental status. Time Spent in Patient Care: 30 minutes Coding Level of Care Code Acute Code for [facility] Fwd Diagnoses Altered mental status R41.82 End stage renal disease on dialysis N18.6; Z99.2 Partial small bowel obstruction K56.600 Essential hypertension I10 Diarrhea R19.7 Left lower lobe pneumonia J18.9 Chronic anemia D64.9 Hypothyroidism E03.9 COPD (chronic obstructive pulmonary disease) J44.9 Intermittent atrial fibrillation I48.0 Coronary artery disease involving [place] coronary artery of [place] heart without angina pectoris I25.10 Associated angina: without angina Coronary Disease-Associated Artery/Lesion type: [place] artery [place] vs. transplanted heart: [place] heart Time Spent (min) 30
[2023-06-04] MEDS: enoxaparin 30 mg/0.3 mL Syringe SUBCUT (16:02)
[2023-06-04] MEDS: pantoprazole DR 40 mg Tablet PO (17:24)
[2023-06-04] MEDS: losartan 50 mg Tablet PO (17:24)
[2023-06-04] MEDS: budesonide 0.5 mg/2 mL Neb INHALATION (19:57)
[2023-06-04] MEDS: ipratropium-albuterol 3 mL Neb INHALATION (19:57)
[2023-06-04] MEDS: ropinirole 0.25 mg Tablet PO (20:16)
[2023-06-04] MEDS: ALPRAZolam 0.5 mg Tablet 0.25 MG PO (20:16)
[2023-06-04] MEDS: docusate sodium 100 mg Capsule 200 MG PO (20:17)
[2023-06-04] MEDS: HYDROcodone-acetaminophen 5-325 mg Tablet 1 TAB PO (20:17)
[2023-06-04] MEDS: atorvastatin 40 mg Tablet PO (20:18)
[2023-06-04] MEDS: amlodipine 10 mg Tablet PO (20:18)
[2023-06-04] MEDS: aspirin 81 mg EC Tablet PO (20:18)
[2023-06-05] VITALS (8 sets, daily range): BP systolic 135–144; BP diastolic 53–55; PULSE 62–74; RESP 14–18; TEMP 36.4–36.7; O2SAT 90–99
[2023-06-05] MEDS: FUROsemide 40 mg Tablet PO (05:12)
[2023-06-05] MEDS: cyanocobalamin 1,000 mcg Tablet 1000 MCG PO (05:12)
[2023-06-05] MEDS: ipratropium-albuterol 3 mL Neb INHALATION ×2 (07:37→11:15)
[2023-06-05] MEDS: budesonide 0.5 mg/2 mL Neb INHALATION (07:37)
[2023-06-05] MEDS: metoprolol succinate ER (24 HR) 50 mg Tablet 25 MG PO (08:48)
[2023-06-05] MEDS: b-complex-vitamin c Tablet 1 EACH PO (08:48)
[2023-06-05] MEDS: pantoprazole DR 40 mg Tablet PO (08:48)
--- NOTE | 2023-06-05 09:28 | P.NPUCON_ITS ---
Providers/Reason for Consult 2 Consulting Physican/Specialty*: Arvind Swartz MD/Psychiatry Reason for Consult*: visual hallucinations. Attending Physician: Christine Domingo MD Primary Care Provider: Magdiel Amador MD Psych Consult HPI History of Present Illness Galina Saba is a 88 year old female with multiple medical problems including end-stage renal disease and macular degeneration who was admitted for observation as she had been brought in by her family due to recent episodes of increased confusion and a 1 week onset of visual hallucinations that were described as being complex. The patient's daughter had reported that the patient appeared to be more confused later in the evening. The patient had reported no change in regards to mood or any problems with anxiety. She had denied any past history of paranoia nor did she endorse any history of auditory hallucinations. She had acknowledged having visual hallucinations and stated that she was confused and scared by the hallucinations. She had reported that she had been in a corner scared and reported that she had been seeing people around her talking to her and reports that she had seen a boy that she had never met before giving her an object. She did report that she has had an increased loss of central vision with complaints of 6 her peripheral vision being better. Today, she reports that she is not having any hallucinations. Patient reports that she is on dialysis 3 times a week for end-stage renal disease. She reports that she had missed her Friday dialysis but received it on Friday with no changes noted behaviorally. Patient reports no sleep problems as she states taking Xanax 0.25 mg at night to help with her sleep. She denies any mood symptoms. She denies any past history of carmelita. Inpatient psychiatric history/outpatient psychiatric history: None Drug and alcohol history: None Medical history: As per previous note-includes aortic stenosis, hiatal hernia, gastritis, esophageal dysmotility, dysphagia, coronary artery disease, COPD, carotid stenosis, GERD, diabetes, end-stage renal disease, macular degeneration Surgical history: Cholecystectomy, status post colonoscopy 2020, pacemaker placement, tubal ligation, hemodialysis access port placement Legal history: None history: None Family psychiatric history: None reported Social history: She is a white female whose several years ago. She lives with her daughter in [place]. She has 10 children and 53 grandchildren. She had reported no history of sexual physical or emotional abuse during her childhood. She reports that she had previously worked and had graduated high school with no history of learning delays. She reports remaining active physically. She had previously smoked cigarettes but quit using nearly 40 years ago. Meds Home Medications and Allergies Home Medications Medication Instructions Recorded Confirmed Last Taken Type linagliptin 5 mg tablet (Tradjenta) 5 mg PO QAM 04/15/19 06/04/23 05/29/23 History atorvastatin 40 mg tablet 40 mg PO BEDTIME 11/17/19 06/04/23 05/28/23 History acetaminophen 500 mg tablet 500 - 1,000 mg PO Q6H PRN Pain 07/31/20 06/04/23 06/26/22 18:00 History (Tylenol Extra Strength) calcium carbonate (Tums) 200 mg PO DAILY PRN Heartburn 07/31/20 06/04/23 12/03/22 History fluticasone propionate 50 1 spray intranasal DAILY PRN 07/30/21 06/04/23 12/03/22 History mcg/actuation nasal Allergy Symptoms spray,suspension vit C,E,zinc,copper-zfxpc8g 250 1 cap PO QAM 07/30/21 06/04/23 05/29/23 History mg-lutein 5 mg-zeaxanthin 1 mg capsule (50 Plus Adult Eye Health) amlodipine 10 mg tablet 10 mg PO BEDTIME 10/11/21 06/04/23 05/28/23 History cyanocobalamin (vitamin B-12) 1,000 mcg PO QAM 10/11/21 06/04/23 05/29/23 History 1,000 mcg tablet (Vitamin B-12) omeprazole 40 mg capsule,delayed 40 mg PO BID 10/11/21 06/04/23 05/29/23 History release ropinirole 0.25 mg tablet 0.25 mg PO BEDTIME 05/13/22 06/04/23 05/28/23 History alprazolam 0.25 mg tablet 0.25 mg PO BEDTIME 07/09/22 06/04/23 05/28/23 History losartan 50 mg tablet 50 mg PO BID 07/09/22 06/04/23 05/29/23 History albuterol sulfate 90 mcg/actuation 2 puff inhalation Q4H PRN 11/11/22 06/04/23 Unknown History aerosol inhaler Shortness Of Breath aspirin 81 mg tablet,delayed 81 mg PO BEDTIME 11/11/22 06/04/23 05/28/23 History release budesonide 160 mcg-glycopyr 9 2 inh inhalation BID PRN unknown 11/11/22 06/04/23 Unknown History mcg-formot 4.8 mcg/actuation HFA inhaler (Breztri Aerosphere) furosemide 40 mg tablet 40 mg PO QAM 11/11/22 06/04/23 05/29/23 History metoprolol succinate 50 mg 25 mg PO DAILY 11/11/22 06/04/23 05/28/23 History tablet,extended release 24 hr nitroglycerin 0.4 mg sublingual 0.4 mg sublingual Q5M PRN Chest 11/11/22 06/04/23 Unknown History tablet (Nitrostat) Pain docusate sodium 100 mg capsule 200 mg PO BEDTIME 03/14/23 06/04/23 05/28/23 History (Colace) inulin 2 gram chewable tablet 2 g PO QID 03/14/23 06/04/23 05/29/23 History (Fiber Gummies) hydrocodone 5 mg-acetaminophen 325 1 tab PO Q8H PRN Pain, Moderate 03/15/23 06/04/23 Unknown Rx mg tablet #14 tabs vitamin B complex with vit C-folic 1 tab PO DAILY 05/29/23 06/04/23 Unknown History acid 800 mcg-zinc 12.5 mg tablet (RenaPlex) levothyroxine 25 mcg tablet 25 mcg PO QAM 90 days #90 tabs 06/05/23 Unknown Rx Allergies Allergy/AdvReac Type Severity Reaction Status Date / Time lisinopril Allergy Unknown Unknown Verified 06/04/23 10:46 morphine AdvReac Intermediate ADR-Nausea Verified 06/04/23 10:46 Current Medications Current Medications Generic Name Dose Route Start Last Admin Trade Name Freq PRN Reason Stop Dose Admin Hydrocodone Bitart/Acetaminophen 1 tab 06/04/23 15:18 06/04/23 20:17 Hydrocodone-Acetaminophen 5-325 Mg Tablet PO 1 tab Q8H PRN Administration Pain, Moderate Albuterol/Ipratropium 3 ml 06/04/23 20:00 06/05/23 11:15 Ipratropium-Albuterol 3 Ml Neb INHALATION 3 ml QID.RESPIRATORY ROSIBEL Administration Alprazolam 0.25 mg 06/04/23 21:00 06/04/23 20:16 Alprazolam 0.5 Mg Tablet PO 0.25 mg BEDTIME ROSIBEL Administration Amlodipine Besylate 10 mg 06/04/23 21:00 06/04/23 20:18 Amlodipine 10 Mg Tablet PO 10 mg BEDTIME ROSIBEL Administration Aspirin 81 mg 06/04/23 21:00 06/04/23 20:18 Aspirin 81 Mg Ec Tablet PO 81 mg BEDTIME ROSIBEL Administration Atorvastatin Calcium 40 mg 06/04/23 21:00 06/04/23 20:18 Atorvastatin 40 Mg Tablet PO 40 mg BEDTIME ROSIBEL Administration Budesonide 0.5 mg 06/04/23 20:00 06/05/23 07:37 Budesonide 0.5 Mg/2 Ml Neb INHALATION 0.5 mg BID.RESPIRATORY ROSIBEL Administration Cyanocobalamin 1,000 mcg 06/05/23 06:00 06/05/23 05:12 Cyanocobalamin 1,000 Mcg Tablet PO 1,000 mcg QAM ROSIBEL Administration Docusate Sodium 200 mg 06/04/23 21:00 06/04/23 20:17 Docusate Sodium 100 Mg Capsule PO 200 mg BEDTIME ROSIBEL Administration Enoxaparin Sodium 30 mg 06/04/23 15:15 06/04/23 16:02 Enoxaparin 30 Mg/0.3 Ml Syringe SUBCUT 30 mg Q24H ROSIBEL Administration Furosemide 40 mg 06/05/23 06:00 06/05/23 05:12 Furosemide 40 Mg Tablet PO 40 mg QAM ROSIBEL Administration Losartan Potassium 50 mg 06/04/23 18:00 06/05/23 10:35 Losartan 50 Mg Tablet PO 50 mg BID ROSIBEL Administration Metoprolol Succinate 25 mg 06/05/23 09:00 06/05/23 08:48 Metoprolol Succinate Er (24 Hr) 50 Mg Tablet PO 25 mg DAILY ROSIBEL Administration Multivitamins 1 each 06/05/23 09:00 06/05/23 08:48 O-Oqqvmsf-Cjzklnf C Tablet PO 1 each DAILY ROSIBEL Administration Non-Formulary Medication 5 mg 06/05/23 06:00 06/05/23 05:14 Linagliptin [Tradjenta] PO Not Given QAM ROSIBEL Pantoprazole Sodium 40 mg 06/04/23 18:00 06/05/23 08:[address] 40 Mg Tablet PO 40 mg BID ROSIBEL Administration Ropinirole HCl 0.25 mg 06/04/23 21:00 06/04/23 20:16 Ropinirole 0.25 Mg Tablet PO 0.25 mg BEDTIME ROSIBEL Administration PFSH NPU 2 PFSH: Medical History Severe aortic stenosis Hiatal hernia Gastritis Exertional dyspnea Recurrent aspiration events Dysphagia Esophageal dysmotility Dark stools Cough Hematochezia Coronary artery disease Intermittent atrial fibrillation COPD (chronic obstructive pulmonary disease) Carotid stenosis Interstitial lung disease Diastolic congestive heart failure GERD (gastroesophageal reflux disease) Anemia Diabetes Essential hypertension End stage renal disease Third degree heart block Status post pacemaker placement Surgical History Status post colonoscopy (12/30/19) History of laparoscopic cholecystectomy S/P hemodialysis catheter insertion History of permanent cardiac pacemaker placement History of tubal ligation Hemodialysis access site with arteriovenous graft Family History Mother Cancer Lung cancer Father Diabetes Other CAD (coronary artery disease) Denies family history of Anesthesia complication Bleeding disorder Social History Smoking and tobacco/nicotine status: former use of tobacco/nicotine Quit status (tobacco/nicotine): has quit using Year quit tobacco: 1983 Former quit date comment: 2ppd x 19 years Alcohol intake: never Substance/Drug Use: never Mental Status Exam 2 MSE Comments: Is a pleasant white female who appears younger than her stated age with good eye contact. She was friendly and cooperative on interview. She was alert and oriented to person place time and situation. Her speech was normal in regards to rate rhythm and prosody. There was no evidence of any abnormal involuntary motor movements tics or tremors appreciated. Her mood was described as good. Her affect was euthymic. Her thought process was linear logical and goal- directed. Thought content showed no evidence of homicidal or suicidal ideation. There is no clear evidence of delusional thinking. She did not appear to be responding to internal stimuli. Her attention span appeared good. Her recent and remote memory are grossly intact. She was able to recall 2 out of 3 words after 5 minutes and call the final word with prompting. Registration was 3/3 intact. 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 I would not recommend any medications at this time as there is only been anecdotal evidence of benefits from using low-dose of antipsychotics for this problem. Reassurance that this is not likely a mental health problem and the hallucinations are a result of the vision loss would be recommended for the patient. If it worsens patient may discuss with primary care physician. Attestations NPU 2 Medical Necessity Statement*: NA Coding Level of Care Code Acute Code for g Fwd Diagnoses Visual hallucinations R44.1 Macular degeneration H35.30 Essential hypertension I10 End stage renal disease on dialysis N18.6; Z99.2
[2023-06-05] MEDS: losartan 50 mg Tablet PO (10:35)
--- NOTE | 2023-06-05 11:58 | P.DS_ITS ---
Discharge Providers Date of Admission: 06/04/23 14:43 Date of Discharge: June 05, 2023 Attending Provider at Admission: Christine Domingo MD Attending Provider at Discharge: Christine Domingo MD Consults: psychiatry Primary Care Provider: Magdiel Amador MD Diagnoses at Discharge Discharge Diagnosis (1) Altered mental status: Status: Acute (2) End stage renal disease on dialysis: Status: Acute (3) Partial small bowel obstruction: Status: Acute (4) Essential hypertension: Status: Acute (5) Diarrhea: Status: Acute (6) Left lower lobe pneumonia: Status: Acute (7) Chronic anemia: Status: Acute (8) Hypothyroidism: Status: Acute (9) COPD (chronic obstructive pulmonary disease): Status: Acute (10) Intermittent atrial fibrillation: Status: Acute (11) Coronary artery disease: Status: Acute Qualifiers: Associated angina: without angina Coronary Disease-Associated Artery/Lesion type: [place] artery [place] vs. transplanted heart: [place] heart Qualified Code(s): I25.10 - Atherosclerotic heart disease of [place] coronary artery without angina pectoris Reason for Visit Reason for Visit: Confusion / Dizzy Brief History: Galina Saba is a 88 year old female with past medical history of left lower lobe pneumonia, partial small bowel obstruction, ESRD on dialysis MWF, chronic diastolic heart failure, generalized weakness, COPD, anemia of chronic disease, coronary artery disease, atrial fibrillation, hypertension, aortic stenosis, interstitial lung disease, complete heart block status post pacemaker placement on supplemental oxygen at 3 L nasal cannula, was brought in by family for episodes of confusion and hallucinations since 3 days. As per the daughter she was getting more confused in the evenings and has been having hallucinations for last 3 days. Patient herself admits seeing people and talking to her, also while waiting in the ER she felt like the floor and the wheelchair is moving. She is otherwise independent, moves around in the house with a walker. Denies any history of fever cold cough chest pain shortness of breath nausea vomiting or diarrhea or pain. But admits to having allergy-like symptoms/sneezing recently for the last 3 to 4 days .last HD was on Friday. No history of recent change in medications. Currently she is feeling normal no hallucinations, and is alert and oriented x 3. Hospital Course Hospital Course She was seen by psychiatry and found to have hallucinations likely secondary to macular degeneration. counselled and reassured about the same. she seems more stable and agrees to go home and follow up in 1 week with the PCP is symptoms persists. no further intervention with medications needed at this time. Physical Exam Narrative: She is alert awake oriented x 3 not in acute distress Chest is clear to auscultation bilaterally Cardiovascular normal heart sounds no murmurs Abdomen NAD Extremities no edema Discharge Data Studies Completed and Pending Completed Studies During Hospitalization Category Date Time Status CT head wo con* [id number] Stat Cat Scan 06/04/23 11:11 Completed XR chest 1V portable [id number] Stat Exams 06/04/23 10:35 Completed US venous duplex upper extremity LT [CV venous duplex Ultrasound 06/04/23 11:17 [place] [id number]] Stat Radiology Impressions Chest X-Ray 06/04/23 10:35 IMPRESSION: 1. No acute findings. 2. Chronic lung changes noted Venous Duplex 06/04/23 11:17 IMPRESSION: No evidence of deep vein thrombosis. Patent AV graft. Laboratory Results WBC 6.34 10^3/uL (3.29-11.43) 06/04/23 11:39 RBC 2.83 10^6/uL (3.85-5.65) L 06/04/23 11:39 Hgb 8.80 g/dL (11.27-16.99) L 06/04/23 11:39 Hct 28.3 % (36-47) L 06/04/23 11:39 MCV 100.0 fl (85-98) H 06/04/23 11:39 MCH 31.1 pg (27-33) 06/04/23 11:39 MCHC 31.1 g/dL (30-55) 06/04/23 11:39 RDW 14.6 % (12.1-15.1) 06/04/23 11:39 Plt Count 221 10^3/cmm (157-399) 06/04/23 11:39 MPV 11.0 fL (7.4-10.4) H 06/04/23 11:39 Neut % (Auto) 73.6 % 06/04/23 11:39 Lymph % (Auto) 12.3 % 06/04/23 11:39 [place] % (Auto) 11.0 % 06/04/23 11:39 Eos % (Auto) 2.2 % 06/04/23 11:39 Baso % (Auto) 0.6 % 06/04/23 11:39 Neut # (Auto) 4.66 10^3/uL (1.8-7.7) 06/04/23 11:39 Lymph # (Auto) 0.8 10^3/uL (0.8-4.8) 06/04/23 11:39 [place] # (Auto) 0.7 10^3/uL (0.2-0.9) 06/04/23 11:39 Eos # (Auto) 0.1 10^3/uL (0.0-0.8) 06/04/23 11:39 Baso # (Auto) 0.0 10^3/uL (0.0-0.1) 06/04/23 11:39 Nucleated RBC % (auto) 0 % 06/04/23 11:39 Nucleated RBCs # 0.0 /100WBC 06/04/23 11:39 PT 14.70 SECONDS (12.1-14.9) 06/04/23 11:39 INR 1.12 (0.8-1.2) 06/04/23 11:39 Sodium 142 mmol/L (136-145) 06/04/23 11:39 Potassium 4.0 mmol/L (3.5-5.1) 06/04/23 11:39 Chloride 97 mmol/L (98-107) L 06/04/23 11:39 Carbon Dioxide 34 mmol/L (22-29) H 06/04/23 11:39 Anion Gap 15.0 (5-19) 06/04/23 11:39 BUN 20 mg/dL (8-23) 06/04/23 11:39 Creatinine 4.4 mg/dL (0.5-0.9) H 06/04/23 11:39 GFR Calculation Not Reportable 06/04/23 11:39 Glucose 103 mg/dL (65-115) 06/04/23 11:39 Calculated Osmolality 297 mOsm/kg (285-295) H 06/04/23 11:39 Calcium 8.4 mg/dL (8.5-10.5) L 06/04/23 11:39 Magnesium 1.7 mg/dL (1.7-2.3) 06/04/23 11:39 Total Bilirubin 0.3 mg/dL (0.15-1.2) 06/04/23 11:39 AST 19 U/L (0-32) 06/04/23 11:39 ALT 11 U/L (0-33) 06/04/23 11:39 Alkaline Phosphatase 79 U/L (35-105) 06/04/23 11:39 NT-Pro-B Natriuret Pep 68239 pg/mL (0-450) H 06/04/23 11:39 Total Protein 6.1 g/dL (6.6-8.7) L 06/04/23 11:39 Albumin 3.5 g/dL (3.5-5.2) 06/04/23 11:39 Globulin 2.6 g/dL (1.3-4.6) 06/04/23 11:39 TSH 6.20 uIU/mL (0.27-4.20) H 06/04/23 11:39 Vitals Last Vital Signs Temp 97.6 F 06/05/23 11:43 Pulse 69 06/05/23 11:43 Resp 14 06/05/23 11:43 BP 144/53 06/05/23 10:35 Pulse Ox 96 06/05/23 11:43 O2 Del Method Nasal Cannula 06/05/23 11:43 O2 Flow Rate 3 06/05/23 11:15 Discharge Plan Discharge Patient Disposition: Home Condition: Stable Prescriptions: New levothyroxine 25 mcg Tablet 25 mcg PO QAM 90 Days Qty: 90 0RF Continued Tradjenta 5 mg tablet 5 mg PO QAM alprazolam 0.25 mg tablet 0.25 mg PO BEDTIME acetaminophen [Tylenol Extra Strength] 500 mg Tablet 500 - 1,000 mg PO Q6H PRN (Reason: Pain) calcium carbonate [Tums] 200 mg calcium (500 mg) Tablet,Chewable 200 mg PO DAILY PRN (Reason: Heartburn) atorvastatin 40 mg Tablet 40 mg PO BEDTIME ropinirole 0.25 mg Tablet 0.25 mg PO BEDTIME RenaPlex 800 mcg- 12.5 mg tablet 1 tab PO DAILY 50 Plus Adult [facility] Health 250-5-1 mg Capsule 1 cap PO QAM fluticasone propionate 50 mcg/actuation [place],Suspension 1 spray INTRANASAL DAILY PRN (Reason: Allergy Symptoms) Rx Instructions: administer into each nostril losartan 50 mg tablet 50 mg PO BID cyanocobalamin (vitamin B-12) [Vitamin B-12] 1,000 mcg Tablet 1,000 mcg PO QAM amlodipine 10 mg tablet 10 mg PO BEDTIME omeprazole 40 mg capsule,delayed release(DR/EC) 40 mg PO BID metoprolol succinate 50 mg tablet extended release 24 hr 25 mg PO DAILY aspirin 81 mg Tablet,Delayed Release (Dr/Ec) 81 mg PO BEDTIME nitroglycerin [Nitrostat] 0.4 mg Tablet, Sublingual 0.4 mg SUBLINGUAL Q5M PRN (Reason: Chest Pain) Rx Instructions: do not exceed 3 doses per episode albuterol sulfate 90 mcg/actuation HFA aerosol inhaler 2 puff INHALATION Q4H PRN (Reason: Shortness Of Breath) Breztri Aerosphere 160-9-4.8 mcg/actuation HFA aerosol inhaler 2 inh INHALATION BID PRN (Reason: unknown) furosemide 40 mg tablet 40 mg PO QAM Fiber Gummies 2 gram Tablet,Chewable 2 g PO QID docusate sodium [Colace] 100 mg Capsule 200 mg PO BEDTIME hydrocodone-acetaminophen 5-325 mg tablet 1 tab PO Q8H PRN (Reason: Pain, Moderate) Qty: 14 0RF Discharge Orders: Discharge Order (Routine); Ordered 06/05/23 Ordered By: Christine Domingo Referrals: Magdiel Amador MD [Primary Care Provider] - 06/10/23 11:00 am Discharge Diet: Cardiac Discharge Activity: Resume usual activity Patient Instructions: Altered Mental Status (ED), Opioid Safety Activity Restrictions/Additional Instructions: follow up PCP in 1 week Repeat TSH in 1 month. Discharge Attestations Time Spent in Discharge Care*: less than 30 min Status at Discharge: Cognitive status at discharge: cognitively intact , Behavioral status at discharge: cooperative , Quality Metrics Clinical Quality Measures [ No reported AMI, CVA or VTE this stay] Coding Level of Care Code Acute Code for Chg Fwd Diagnoses Altered mental status R41.82 End stage renal disease on dialysis N18.6; Z99.2 Partial small bowel obstruction K56.600 Essential hypertension I10 Diarrhea R19.7 Left lower lobe pneumonia J18.9 Chronic anemia D64.9 Hypothyroidism E03.9 COPD (chronic obstructive pulmonary disease) J44.9 Intermittent atrial fibrillation I48.0 Coronary artery disease involving [place] coronary artery of [place] heart without angina pectoris I25.10 Associated angina: without angina Coronary Disease-Associated Artery/Lesion type: [place] artery [place] vs. transplanted heart: [place] heart Time Spent (min) 20
== END 2023-06-05 13:40 | disposition home or self-care (01) ==
LOC: ER 14:12 → MEDSURG 14:49
PROVIDERS: Admitting Provider Internal Medicine; Emergency Provider Emergency Medicine; PCP Family Medicine; Visit Provider Internal Medicine
DX: R41.82 Altered mental status, unspecified (principal); E11.22 Type 2 diabetes mellitus with diabetic chronic kidney disease; I12.9 Hypertensive chronic kidney disease with stage 1 through stage 4 chronic kidney disease, or unspecified chronic kidney disease; N18.6 End stage renal disease; Z99.2 Dependence on renal dialysis; K56.600 Partial intestinal obstruction, unspecified as to cause; R19.7 Diarrhea, unspecified; J18.9 Pneumonia, unspecified organism; D64.9 Anemia, unspecified; E03.9 Hypothyroidism, unspecified; J44.9 Chronic obstructive pulmonary disease, unspecified; I48.0 Paroxysmal atrial fibrillation; I25.10 Atherosclerotic heart disease of native coronary artery without angina pectoris; Z95.0 Presence of cardiac pacemaker; Z87.891 Personal history of nicotine dependence; Z79.82 Long term (current) use of aspirin; M79.89 Other specified soft tissue disorders
CPT/HCPCS: 70450; 71045; 80053; 83735; 83880; 84443; 85025; 85610; 93005; 93971; 94640; 94664; 96372; 99285; G0378; J1650; J7626

== ENCOUNTER → 2023-06-10 12:50 | Outpatient (BNVA) | payer MEDICARE, MEDICAID, SELFPAY | PROVIDERS: PCP Family Medicine; Visit Provider Internal Medicine Cardiovascular Disease | DX: I13.2 Hypertensive heart and chronic kidney disease with heart failure and with stage 5 chronic kidney disease, or end stage renal disease (principal); N18.6 End stage renal disease; E11.22 Type 2 diabetes mellitus with diabetic chronic kidney disease; I50.30 Unspecified diastolic (congestive) heart failure; Z87.891 Personal history of nicotine dependence; Z79.4 Long term (current) use of insulin; Z99.2 Dependence on renal dialysis; I65.29 Occlusion and stenosis of unspecified carotid artery; I35.0 Nonrheumatic aortic (valve) stenosis; H35.30 Unspecified macular degeneration; J84.9 Interstitial pulmonary disease, unspecified; R60.0 Localized edema; Z95.0 Presence of cardiac pacemaker | CPT/HCPCS: 99214 ==

== ENCOUNTER 2023-06-24 19:36 | Emergency (ER) | payer MEDICARE, MEDICAID, SELFPAY ==
[2023-06-24 19:38] VITALS: BP 147/67; PULSE 78; RESP 16; TEMP 36.6; O2SAT 90; BMI 20.2
--- NOTE | 2023-06-24 20:44 | ED_ITS ---
HPI - Extremity Problem 2 General: Chief complaint: Extremity Problem,Nontraumatic Stated complaint: Left arm fluid Time Seen by Provider: 06/24/23 20:43 History of Present Illness: 88-year-old female presents emergency de partment with complaints of clear fluid weeping from her left arm. Patient states that she receives dialysis 3 times a week Friday and Friday and has a dialysis fistula in her left upper arm. She states her left upper arm has been intermittently swelling and is now weeping clear fluid for the previous 2 weeks. She states she has been seen in the emergency department previously and had an ultrasound and was advised that her fistula is intact but she became concerned because her eyesight is poor and she felt fluid to her left arm and was concerned that it might be bleeding. She states she has not missed any dialysis appointments and states that she is overall doing well and has no other complaints at present. Patient states she is chronically on 3 L supplemental oxygen has a history of congestive heart failure. She denies shortness of breath at present. She states she does have an appointment in June to have her fistula evaluated and cleaned. She states she is had this several times in the past. Review of Systems 2 General: Reports: 10 or more systems reviewed and unremarkable except in HPI and below Musc: Reports: extremity swelling [facility] ED 2 PFSH: Medical History (Updated 06/24/23 @ 21:30 by Petar Morrell MD) Edema of left upper extremity Intermittent atrial fibrillation Essential hypertension Third degree heart block Status post pacemaker placement Hypothyroidism Altered mental status Chronic kidney disease with end stage renal failure on dialysis End stage renal disease on dialysis Partial small bowel obstruction Diarrhea Left lower lobe pneumonia Chronic anemia Severe aortic stenosis [place] her[place] Gastritis Exertional dyspnea Recurrent aspiration events Dysphagia Esophageal dysmotility Dark stools Cough Hematochezia Coronary artery disease COPD (chronic obstructive pulmonary disease) Carotid stenosis Interstitial lung disease Diastolic congestive heart failure GERD (gastroesophageal reflux disease) Anemia Diabetes End stage renal disease Surgical History (Updated 06/10/23 @ 14:56 by Bill Heard MD) History of permanent cardiac pacemaker placement Status post colonoscopy (12/30/19) History of laparoscopic cholecystectomy S/P hemodialysis catheter insertion History of tubal ligation Hemodialysis access site with arteriovenous graft Family History Mother Cancer Lung cancer Father Diabetes Other CAD (coronary artery disease) Denies family history of Anesthesia complication Bleeding disorder Social History Smoking and tobacco/nicotine status: former use of tobacco/nicotine Quit status (tobacco/nicotine): has quit using Year quit tobacco: 1983 Former quit date comment: 2ppd x 19 years Alcohol intake: never Substance/Drug Use: never Physical Exam 2 Narrative: EXAM NARRATIVE: General: Alert, no acute distress. Skin: Warm, dry, Intact. Head: Normocephalic, atraumatic. Neck: Supple, trachea midline. Eye: Extraocular movements are intact. PERRLA Ears, nose, mouth and throat: mucosa moist. Cardiovascular: Regular, Normal peripheral perfusion. Respiratory: Lungs are clear to auscultation, respirations are non-labored, breath sounds are equal, Symmetrical chest wall expansion. Gastrointestinal: Soft, Nontender, Non distended, Normal bowel sounds. Musculoskeletal: Normal ROM, no deformity. Left upper extremity with 1+ pitting edema and anasarca noted. Patient does have an intact AV fistula to the left upper arm with a positive thrill and bruit and no obvious malfunction. Neurological: Alert and oriented, No focal neurological deficit observed. Psychiatric: Cooperative, appropriate mood & affect. Course 2 Vital Signs: Vital signs: Vital Signs Temperature 97.8 F 06/24/23 19:38 Pulse Rate 81 06/24/23 21:43 Respiratory Rate 18 06/24/23 21:43 Blood Pressure 151/43 06/24/23 21:43 Pulse Oximetry 100 06/24/23 21:43 Oxygen Delivery Me thod Nasal Cannula 06/24/23 19:38 Oxygen Flow Rate 3 06/24/23 19:38 MDM - Extremity (Nontraumatic) Medical Decision Making Physical exam completed and documented I will obtain laboratory evaluation I will provide a absorbent dressing to the left upper extremity and a loose Ad wrap to the extremity. After the dressing was applied I did reevaluate the AV fistula to ensure that there was no vascular compromise and the AV fistula still maintained a firm thrill and solid bruit. I did have an extensive discussion with the patient and her family member regarding the pathophysiology of hydrostatic pressure as well as the rationale for the anasarca to her left upper extremity. Patient and her family member did appear to be very pleased and accepting of the information is provided and advised they would follow-up as previously scheduled. Patient was provided discharge instructions and was discharged home in stable condition in no acute distress. Medical Records I reviewed the patient's medical records. Lab Data I reviewed the patient's lab results. 06/24/23 21:06/24/23: Laboratory Results WBC 7.00 10^3/uL (3.29-11.43) 06/24/23: RBC 3.49 10^6/uL (3.85-5.65) L 06/24/23 21: Hgb 10.60 g/dL (11.27-16.99) L 06/24/23: Hct 33.9 % (36-47) L 06/24/23: MCV 97.1 fl (85-98) 06/24/23: MCH 30.4 pg (27-33) 06/24/23: MCHC 31.3 g/dL (30-55) 06/24/23: RDW 14.4 % (12.1-15.1) 06/24/23: Plt Count 204 10^3/cmm (157-399) 06/24/23: MPV 11.0 fL (7.4-10.4) H 06/24/23: Neut % (Auto) 72.7 % 06/24/23: Lymph % (Auto) 15.3 % 06/24/23: [place] % (Auto) 9.7 % 06/24/23: Eos % (Auto) 1.3 % 06/24/23: Baso % (Auto) 0.7 % 06/24/23: Neut # (Auto) 5.09 10^3/uL (1.8-7.7) 06/24/23: Lymph # (Auto) 1.1 10^3/uL (0.8-4.8) 06/24/23: [place] # (Auto) 0.7 10^3/uL (0.2-0.9) 06/24/23: Eos # (Auto) 0.1 10^3/uL (0.0-0.8) 04/30/24 21:27 Baso # (Auto) 0.1 10^3/uL (0.0-0.1) 06/24/23 21: Nucleated RBC % (auto) 0 % 06/24/23 21: Nucleated RBCs # 0.0 /100WBC 06/24/23 21: PT 13.20 SECONDS (12.1-14.9) 06/24/23 21: INR 0.97 (0.8-1.2) 06/24/23 21: APTT 28.7 SECONDS (23.9-36.7) 06/24/23 21: Sodium 139 mmol/L (136-145) 06/24/23 21: Potassium 3.9 mmol/L (3.5-5.1) 06/24/23: Chloride 97 mmol/L (98-107) L 06/24/23: Carbon Dioxide 31 mmol/L (22-29) H 06/24/23: Anion Gap 14.9 (5-19) 06/24/23 21: BUN 20 mg/dL (8-23) 06/24/23 21: Creatinine 4.4 mg/dL (0.5-0.9) H 06/24/23 21: GFR Calculation Not Reportable 06/24/23 21: Glucose 98 mg/dL (65-115) 06/24/23 21: Calculated Osmolality 291 mOsm/kg (285-295) 06/24/23: Calcium 8.6 mg/dL (8.5-10.5) 06/24/23: Total Bilirubin 0.3 mg/dL (0.15-1.2) 06/24/23 21: AST 22 U/L (0-32) 06/24/23 21: ALT 14 U/L (0-33) 06/24/23 21: Alkaline Phosphatase 91 U/L (35-105) 06/24/23 21: NT-Pro-B Natriuret Pep 90221 pg/mL (0-450) H 06/24/23 21:27 Total Protein 6.5 g/dL (6.6-8.7) L 06/24/23 21: Albumin 3.4 g/dL (3.5-5.2) L 06/24/23 21:27 Globulin 3.1 g/dL (1.3-4.6) 06/24/23 21:27 No radiology studies performed this visit Discharge Plan Discharge Patient Disposition: Home Clinical Impression: Edema of left upper arm Condition: Stable Prescriptions: No Action Tradjenta 5 mg tablet 5 mg PO QAM alprazolam 0.25 mg tablet 0.25 mg PO BEDTIME acetaminophen [Tylenol Extra Strength] 500 mg Tablet 500 - 1,000 mg PO Q6H PRN (Reason: Pain) calcium carbonate [Tums] 200 mg calcium (500 mg) Tablet,Chewable 200 mg PO DAILY PRN (Reason: Heartburn) atorvastatin 40 mg Tablet 40 mg PO BEDTIME ropinirole 0.25 mg Tablet 0.25 mg PO BEDTIME RenaPlex 800 mcg- 12.5 mg tablet 1 tab PO DAILY 50 Plus Adult [facility] 250-5-1 mg Capsule 1 cap PO QAM fluticasone propionate 50 mcg/actuation [place],Suspension 1 spray INTRANASAL DAILY PRN (Reason: Allergy Symptoms) Rx Instructions: administer into each nostril losartan 50 mg tablet 50 mg PO BID cyanocobalamin (vitamin B-12) [Vitamin B-12] 1,000 mcg Tablet 1,000 mcg PO QAM amlodipine 10 mg tablet 10 mg PO BEDTIME omeprazole 40 mg capsule,delayed release(DR/EC) 40 mg PO BID metoprolol succinate 50 mg tablet extended release 24 hr 25 mg PO DAILY aspirin 81 mg Tablet,Delayed Release (Dr/Ec) 81 mg PO BEDTIME nitroglycerin [Nitrostat] 0.4 mg Tablet, Sublingual 0.4 mg SUBLINGUAL Q5M PRN (Reason: Chest Pain) Rx Instructions: do not exceed 3 doses per episode albuterol sulfate 90 mcg/actuation HFA aerosol inhaler 2 puff INHALATION Q4H PRN (Reason: Shortness Of Breath) Breztri Aerosphere 160-9-4.8 mcg/actuation HFA aerosol inhaler 2 inh INHALATION BID PRN (Reason: unknown) furosemide 40 mg tablet 40 mg PO QAM docusate sodium [Colace] 100 mg capsule 200 mg PO .PRN Fiber Gummies 2 gram tablet,chewable 2 g PO .PRN Discharge Orders: Discharge ED (Routine); Ordered 06/24/23 Ordered By: Petar Morrell Referrals: Magdiel Amador MD [Primary Care Provider] - Discharge Diet: Usual diet Discharge Activity: Resume usual activity Patient Instructions: Opioid Safety, Pain Management Activity Restrictions/Additional Instructions: Activity Restrictions/Additional Instructions: Thank you for choosing [facility] for your healthcare needs today. Please realize that you were seen in the Emergency Department and that we are providing you with an emergency medical screening exam and this may not be a complete and all inclusive of all the testing and or medical work-up that you may need to determine your ailment or severity of your illness. It is very important that you follow-up as instructed with your Primary care provider or Specialist for additional evaluation and to discuss your medical treatment plan. You may return to the Emergency Department should you have concerns or if your condition changes or worsens in any way. Coding Level of Care Code ED Rn Discharge for Elizabeth Lewis
[2023-06-24 21:35] LABS: Basophils # 0.1 10^3/uL (0.0-0.1); Basophils % 0.7 %; Eosinophils # 0.1 10^3/uL (0.0-0.8); Eosinophils % 1.3 %; Hematocrit 33.9 % (36-47); Lymphocytes # 1.1 10^3/uL (0.8-4.8); Lymphocytes % 15.3 %; Mean Corpuscular HGB Conc 31.3 g/dL (30-55); Mean Corpuscular Hemoglobin 30.4 pg (27-33); Mean Corpuscular Volume 97.1 fl (85-98); Monocytes # 0.7 10^3/uL (0.2-0.9); Monocytes % 9.7 %; Neutrophils # 5.09 10^3/uL (1.8-7.7); Neutrophils % 72.7 %; Nucleated Red Blood Cells % 0 %; Platelet Count 204 10^3/cmm (157-399); Red Blood Count 3.49 10^6/uL (3.85-5.65); Red Cell Distribution Width 14.4 % (12.1-15.1)
[2023-06-24 21:43] VITALS: BP 151/43; PULSE 81; RESP 18; O2SAT 100
[2023-06-24 21:46] LABS: INR 0.97 (0.8-1.2); Partial Thromboplastin Time 28.7 SECONDS (23.9-36.7)
[2023-06-24 22:05] LABS: Alanine Aminotransferase 14 U/L (0-33); Albumin Level 3.4 g/dL (3.5-5.2); Alkaline Phosphatase 91 U/L (35-105); Anion Gap 14.9 (5-19); Aspartate Amino Transferase 22 U/L (0-32); Blood Urea Nitrogen 20 mg/dL (8-23); Calcium 8.6 mg/dL (8.5-10.5); Carbon Dioxide 31 mmol/L (22-29); Chloride 97 mmol/L (98-107); Creatinine Clr Calc Pharmacy 6.8391; Globulin 3.1 g/dL (1.3-4.6); Glucose 98 mg/dL (65-115); Osmolality Calculated 291 mOsm/kg (285-295); Potassium 3.9 mmol/L (3.5-5.1); Sodium 139 mmol/L (136-145); Total Bilirubin 0.3 mg/dL (0.15-1.2); Total Protein 6.5 g/dL (6.6-8.7)
[2023-06-24 22:26] LABS: NT Pro B Type Natriuretic Pept 66914 pg/mL (0-450)
== END 2023-06-24 21:50 | disposition home or self-care (01) ==
PROVIDERS: Emergency Provider Internal Medicine; PCP Family Medicine
DX: R60.0 Localized edema (principal); Z79.82 Long term (current) use of aspirin; Z87.891 Personal history of nicotine dependence; Z95.0 Presence of cardiac pacemaker; Z99.2 Dependence on renal dialysis; I13.2 Hypertensive heart and chronic kidney disease with heart failure and with stage 5 chronic kidney disease, or end stage renal disease; E11.22 Type 2 diabetes mellitus with diabetic chronic kidney disease; N18.6 End stage renal disease; I50.30 Unspecified diastolic (congestive) heart failure; I25.10 Atherosclerotic heart disease of native coronary artery without angina pectoris; J44.9 Chronic obstructive pulmonary disease, unspecified
CPT/HCPCS: 80053; 83880; 85025; 85610; 85730; 99283